=== PATIENT | female | born 1950 | race Caucasian/White ===

== ENCOUNTER 2016-06-07 18:03 | Inpatient (IN) | payer OTHER ==
[2016-06-07 19:04] LABS: VENOUS BLOOD GAS HCO3 26.4 meq/L (22-29); VENOUS PH 7.47 (7.31-7.41)
[2016-06-07 19:09] LABS: BASOPHIL 1.2 % (0-2.0); EOSINOPHIL 0.7 % (0-4.5); MCH 25.6 pg (25.7-33.7); MCHC 31.2 g/dl (32.0-36.0); MEAN CELL VOLUME 82.1 fl (80-96); MEAN PLT VOLUME 8.9 fl (7.5-11.1); NEUTROPHILS 68.9 % (42.8-82.8); PLATELET COUNT 418 K/MM3 (134-434); RDW 16.2 % (11.6-15.6); WHITE BLOOD COUNT 9.4 K/mm3 (4.0-10.0)
--- NOTE | 2016-06-07 19:23 | PDOC ---
History of Present Illness - General History Source: Family (Daugther) Exam Limitations: Clinical Condition - History of Present Illness Initial Comments: 06/07/16 19:33 The patient is a 65 year old female brought via EMS from [facility] presenting with her daughter, with a significant past medical history of Anemia , MS, Breast CA, Constipation, GERD, Neurogenic bladder, recurrent UTI, Psychiatric Problems, Seizures, and Thyroid disease, who presents to the emergency department with a fever of 105. The patient was released by [facility] today s/p nephrostomy tube. The daughter notes that the patient had a nephrostomy bag prior to the nephrostomy tube surgery. The daughter also notes that the patient has multiple bed sores. The The patient is non verbal and non ambulatory on baseline. Allergies: None Past surgical history: Nephrostomy tube Social history: No alcohol, tobacco or drug use reported PMD - Dr. Kamran Cardenas <Franco Miner - Last Filed: 06/07/16 20:38> - General History Source: Patient <Franco Zuniga - Last Filed: 06/08/16 19:22> - General Chief Complaint: SIRS, Suspected/Possible Stated Complaint: FEVER Time Seen by Provider: 06/07/16 19:23 Past History <Franco Miner - Last Filed: 06/07/16 20:38> - Past Medical History Anemia: Yes Asthma: No Cancer: Yes (breast) Cardiac Disorders: No CVA: No COPD: No CHF: No Diabetes: No GI Disorders: Yes (constipation, gerd) Disorders: Yes (NEUROGENIC BLADER, UTI) HTN: No Hypercholesterolemia: No Liver Disease: No Psychiatric Problems: Yes Seizures: Yes Thyroid Disease: Yes - Immunization History Immunization Up to Date: Yes - Psycho/Social/Smoking Cessation Hx Anxiety: No Suicidal Ideation: No Smoking Status: No Smoking History: Unknown if ever smoked Have you smoked in the past 12 months: No Number of Cigarettes Smoked Daily: 0 Hx Alcohol Use: No Drug/Substance Use Hx: No Substance Use Type: None Hx Substance Use Treatment: No <Franco Zuniga - Last Filed: 06/08/16 19:22> - Past Medical History Allergies/Adverse Reactions: Allergies Allergy/AdvReac Type Severity Reaction Status Date / Time No Known Allergies Allergy Verified 04/27/16 23:33 Home Medications: Ambulatory Orders Acetaminophen 650 mg PO Q4H PRN 03/28/16 Cholecalciferol (Vitamin D3) [Vitamin D3] 1,000 unit PO DAILY 03/28/16 Interferon Beta-1A [Avonex] 30 mcg IM WEEKLY 03/28/16 Levothyroxine [Synthroid -] 100 mcg PO DAILY 03/28/16 Multivitamin [Poly-Vitamin] 1 each PO DAILY 03/28/16 Polyethylene Glycol 3350 [Gavilax] 17 gm PO DAILY 03/28/16 Sennosides [Senna] 17.2 mg PO HS 03/28/16 Tamoxifen Citrate 20 mg PO DAILY 03/28/16 Collagenase Clostridium Hist. [Santyl] 1 applic TP DAILY 04/28/16 Dextran 70/Hypromellose/Pf [Tears Naturale Free Drops] 1 each OP DAILY 04/28/16 Ciprofloxacin HCl [Cipro] 500 mg PO BID 06/07/16 Docusate Sodium [Colace -] 100 mg PO DAILY 06/07/16 Doxycycline Hyclate [Vibratab -] 100 mg PO BID 06/07/16 Review of Systems - Review of Systems Able to Perform ROS?: No Comments:: 06/07/16 19:30 ROS Unattainable due to clinical condition. <Franco Miner - Last Filed: 06/07/16 20:38> *Physical Exam - Vital Signs Last Vital Signs Temp Pulse Resp BP Pulse Ox 103.5 F H 120 H 20 138/60 96 06/07/16 18:28 06/07/16 18:28 06/07/16 18:28 06/07/16 18:28 06/07/16 18:28 - Physical Exam Comments: 06/07/16 19:33 GENERAL: Awake, alert. Nonverbal due to clinical condition. Appears Pale HEAD: No signs of trauma, normocephalic, atraumatic EYES: PERRLA, EOMI, sclera anicteric, conjunctiva clear ENT: Auricles normal inspection, hearing grossly normal, nares patent, oropharynx clear without exudates. Dry mucosa. NECK: Normal ROM, supple, no lymphadenopathy, JVD, or masses LUNGS: No distress, clear to auscultation bilaterally HEART: +Tachycardia. Normal S1 and S2, no murmurs, rubs or gallops, peripheral pulses normal and equal bilaterally. ABDOMEN: Soft, nontender, normoactive bowel sounds. No guarding, no rebound. No masses EXTREMITIES: No edema. No clubbing or cyanosis. Contractures of all 4 extremities. NEUROLOGICAL: Cranial nerves II through XII grossly intact. No focal sensorimotor deficits SKIN: +Large sacral stage 4 bed sore, malodoress, no reinaldo discharge, no bleeding, nontender, no surrounding erythema. Warm, Dry, normal turgor. <Franco Miner - Last Filed: 06/07/16 20:38> - Vital Signs Last Vital Signs Temp Pulse Resp BP Pulse Ox 103.5 F H 120 H 20 138/60 96 06/07/16 18:28 06/07/16 18:28 06/07/16 18:28 06/07/16 18:28 06/07/16 18:28 <Franco Zuniga - Last Filed: 06/08/16 19:22> ED Treatment Course - LABORATORY CBC & Chemistry Diagram: 06/07/16 19:00 06/07/16 19:00 - ADDITIONAL ORDERS Additional order review: Laboratory Results 06/07/16 18:45 VBG pH 7.47 H POC VBG pCO2 37.2 L POC VBG pO2 70.3 H 06/07/16 19:00 RBC 3.39 L MCV 82.1 MCHC 31.2 L RDW 16.2 H MPV 8.9 Neutrophils % 68.9 D Lymphocytes % 20.9 D Monocytes % 8.3 Eosinophils % 0.7 D Basophils % 1.2 - RADIOLOGY Radiograph Interpretation: 06/07/16 20:16 Chest X-Ray Reviewed by: Dr. Chip Maher Impression: There is suggestion of subsegmental atelectasis/pneumonia in the left lung base, medially. <Franco Miner - Last Filed: 06/07/16 20:38> - LABORATORY CBC & Chemistry Diagram: 06/08/16 05:35 06/08/16 05:35 - ADDITIONAL ORDERS Additional order review: Laboratory Results 06/07/16 18:45 VBG pH 7.47 H POC VBG pCO2 37.2 L POC VBG pO2 70.3 H <Franco Zuniga - Last Filed: 06/08/16 19:22> Medical Decision Making - Medical Decision Making 06/07/16 20:39 Dr. Ho was consulted regarding the patient at 8:39pm [phone] <Franco Miner - Last Filed: 06/07/16 20:38> - Medical Decision Making 06/08/16 19:20 Dr. Zuniga: The scribe's documentation has been prepared under my direction and personally reviewed by me in its entirery. I confirm that the note above accurately reflects all work, treatment, procedures, and medical decision making performed by me. Patient with temp of 103.5 found to have pneumonia. Admitt to [facility] for IV antibiotics <Franco Zuniga - Last Filed: 06/08/16 19:22> *DC/Admit/Observation/Transfer - Attestations Scribe Attestion: 06/07/16 19:30 Documentation prepared by Franco Miner, acting as medical information officer for Franco Zuniga DO <Franco Miner - Last Filed: 06/07/16 20:38> - Discharge Dispostion Admit: Yes <Franco Zuniga - Last Filed: 06/08/16 19:22> Diagnosis at time of Disposition: Fever, Severe sepsis Pneumonia Qualifiers: Pneumonia type: due to unspecified organism Laterality: left Lung location: lower lobe of lung Qualified Code(s): J18.9 - Pneumonia, unspecified organism - Discharge Dispostion Condition at time of disposition: Stable - Referrals
[2016-06-07] MEDS ORDERED: IBUPROFEN 800 MG/8 ML IJ IVPB ONE ×2 (19:24→19:29)
[2016-06-07] MEDS ORDERED: SODIUM CHLORIDE 1,000 ML IV STA ×2 (19:24)
[2016-06-07 19:39] LABS: URINE APPEARANCE CLOUDY; URINE BILIRUBIN NEGATIVE (NEGATIVE); URINE COLOR DKYELLOW; URINE GLUCOSE (UA) NEGATIVE (NEGATIVE); URINE KETONE NEGATIVE (NEGATIVE); URINE NITRITE NEGATIVE (NEGATIVE); URINE PROTEIN NEGATIVE (NEGATIVE); URINE UROBILINOGEN NEGATIVE E.U./dl (0.2-1.0)
[2016-06-07 19:40] LABS: INR 1.09 (0.82-1.09)
[2016-06-07] MEDS ORDERED: PIPERACILLIN/TAZOB 3.375 GM 3.375 GM in DEXTROSE 5%-WATER - 50 ML IVPB ONE (19:41)
[2016-06-07] MEDS ORDERED: VANCOMYCIN 1,000 MG in DEXTROSE 5%-WATER - 250 ML IVPB ONE (19:41)
[2016-06-07 19:43] LABS: ACTIVATED PTT 31.6 SECONDS (26.9-34.4)
[2016-06-07 19:46] LABS: URINE BLOOD 1+ (NEGATIVE); URINE LEUK ESTERASE 1+ (NEGATIVE)
[2016-06-07 19:50] LABS: ALBUMIN 2.3 g/dl (3.4-5.0); ANION GAP 9 (8-16); CALCIUM 9.1 mg/dL (8.5-10.1); CO2 26 mmol/L (21-32); CREATININE 0.6 mg/dL (0.55-1.02); GLUCOSE,RANDOM 122 mg/dL (74-106); SGOT/AST 241 U/L (15-37); SGPT/ALT 113 U/L (12-78)
[2016-06-07 19:54] LABS: ALK PHOS 88 U/L (45-117); BILIRUBIN,TOTAL 0.4 mg/dL (0.2-1.0); TOT PROT 7.4 g/dl (6.4-8.2); TROPONIN I < 0.02 ng/ml (0.00-0.05)
[2016-06-07] MEDS ORDERED: PIPERACILLIN/TAZOB 3.375 GM 50 ML IVPB ONE (19:57)
[2016-06-07] MEDS ORDERED: VANCOMYCIN 1 GRAM (PRE-DOCKED) 250 ML IVPB ONE (19:57)
[2016-06-07 20:07] LABS: URINE BACTERIA FEW /hpf (NONE SEEN); URINE MUCUS FEW; URINE RBC 25 /hpf (0-3); URINE WBC 52 /hpf (3-5)
[2016-06-07] MEDS ORDERED: ACETAMINOPHEN 325 MG TABLET (FP) PO PRN (21:35)
[2016-06-07] MEDS ORDERED: ONDANSETRON 4 MG/2 ML VIAL IVPB PRN (21:35)
[2016-06-07] MEDS ORDERED: INTERFERON BETA 30 MCG IM SCH (21:45)
[2016-06-08] MEDS: SENNOSIDES 8.6MG TABLET (FP) PO SCH ×2 (00:52→21:56)
[2016-06-08] MEDS: SODIUM CHLORIDE 1,000 ML IV SCH ×2 (01:00→21:56)
[2016-06-08 03:34] VITALS: BMI 19.7
[2016-06-08] MEDS: LEVOTHYROXINE NA 100 MCG TABLET (FP) PO SCH (06:11)
[2016-06-08 06:55] LABS: BASOPHIL 0.8 % (0-2.0); EOSINOPHIL 1.1 % (0-4.5); MCHC 32.4 g/dl (32.0-36.0); MEAN CELL VOLUME 83.3 fl (80-96); MEAN PLT VOLUME 8.8 fl (7.5-11.1); NEUTROPHILS 67.8 % (42.8-82.8); PLATELET COUNT 290 K/MM3 (134-434); RDW 16.9 % (11.6-15.6); WHITE BLOOD COUNT 6.2 K/mm3 (4.0-10.0)
[2016-06-08 07:48] LABS: CALCIUM 8.1 mg/dL (8.5-10.1); MAGNESIUM 1.9 mg/dL (1.8-2.4)
[2016-06-08 07:49] LABS: CREATININE 0.3 mg/dL (0.55-1.02); PHOSPHOROUS 3.5 mg/dL (2.5-4.9)
[2016-06-08] MEDS ORDERED: PATIENT'S OWN MEDICATION (NON-FORMULARY) (Polyethylene Glycol 3350 [Gavilax] 17 GM) PO SCH (10:00)
[2016-06-08] MEDS ORDERED: PATIENT'S OWN MEDICATION (NON-FORMULARY) (Multivitamin [Poly-Vitamin] 1 EACH) PO SCH (10:00)
--- NOTE | 2016-06-08 10:09 | PN ---
Progress Note (short form) - Note Progress Note: ID consult dictated IMP/RECCD 65 year old female with MS, history of neurogenic bladder, history of right staghorn calculi admitted to [facility] 04/28 to 05/05 with fever/recurrent UTi, dislodged PCN- she was transferred to [facility] on 05/05 for evaluation of her staghorn calculi - she underwent right PCNL on 05/17 she had a stormy course there complicated by recurrent fevers, sepsis requiring pressors, constipation requiring fecal disimpaction, and was discharged on cipro and doxycycline until 06/11/15- no micro is available- received multiple courses of antibiotics while at [facility] she was discharged to the [place] yesterday and had a fever of 105- she received vanco/zosyn in the ED she is awake and alert today and afebrile PE notable for sacral ulcer (clean) and suprapubic tube fever/sepsis syndrome s/p PCNL 05/17 just discharged yesterday from [facility] continue vancomycin and zosyn f/u cultures will try to get micro data from [facility] thanks will get sandrita GARCIA to see if she has an internal stent
--- NOTE | 2016-06-08 11:59 | CONS ---
INFECTIOUS DISEASE CONSULTATION DATE OF CONSULTATION: DATE OF DICTATION: 06/08/2016 REQUESTING PHYSICIAN: Louie Ho MD This is a 65-year-old woman with a past medical history of MS. She is a [facility] and is bedbound. She has a history of a neurogenic bladder and a suprapubic tube. We know her well from prior admissions. She has had a history of right staghorn calculus in the past as well. She has had multiple admissions to [facility] for urosepsis, percutaneous nephrostomy tubes that have fallen out, and fevers. She most recently was hospitalized here in April from May 05 to June 07, again after her percutaneous nephrostomy fell out, and she was noted to have fever. She was transferred on her last admission on May 05 to [facility] for further management of her staghorn calculus. She underwent a right percutaneous lithotomy for removal of the staghorn calculus. She was discharged yesterday from [facility]. Per her discharge summary, her hospital course was complicated by constipation requiring fecal disimpaction, multiple episodes of sepsis; at least 1 of which required pressors. She has been on multiple courses of antibiotics. She was discharged on ciprofloxacin and doxycycline to be completed on the . Unfortunately, no microdata were sent. The patient was discharged yesterday. [facility] the [facility]. She had a fever of 105 and was sent to [facility] where she had a temperature of 103.5. She had cultures sent and was started on vancomycin and Zosyn. PAST MEDICAL HISTORY: Notable for multiple sclerosis, GERD, neurogenic bladder. She has a suprapubic tube. She has history of hypothyroidism. She has history of breast cancer and status post right mastectomy in the past. As well, she has a history of this PCN now which was done on May 17. ALLERGIES: She has no known drug allergies. Her discharge medications include doxycycline, Colace, ciprofloxacin, senna, multivitamin, Synthroid, Santyl, vitamin D, tamoxifen, Avonex, MiraLAX, and Tylenol. FAMILY HISTORY: Noncontributory. SOCIAL HISTORY: She is a long-standing [facility] resident. REVIEW OF SYSTEMS: Currently, she is resting comfortably. She is alert. She has no complaints. PHYSICAL EXAMINATION: Vital Signs: Her T-max is 103.5. Current temperature is 97.5. Pulse of 92. Blood pressure is 124/53. Respiratory rate is 20. HEENT: She is normocephalic. Her eyes are anicteric. Neck: Supple. She has a left EJ. Lungs: Clear to auscultation. Heart: Regular rate and rhythm. Abdomen: Soft, nontender. She has a suprapubic tube that is draining clear urine. Extremities: Without edema. Skin: She has a sacral ulcer that appears clean. LABORATORY DATA: Her white count is 6.2, hemoglobin 7.7, platelets are 290. BUN is 8 and creatinine 0.3. Lactic acid was 2.5 on admission. Repeat was 1.2. Urinalysis from her suprapubic tube had 1+ leukocyte esterase with 52 white cells. Cultures are pending. Chest x-ray has some atelectasis at the left base. In summary, this is a 65-year-old woman just discharged after a complicated admission at [facility] yesterday, who is now admitted with: 1. Fever after discharge. Would continue vancomycin and Zosyn. Follow up her cultures. We will try to get some microdata from [place]. Would get an abdominal KUB to see if she has an internal stent. That is not clear on her discharge summary. 2. History of multiple sclerosis. 3. Neurogenic bladder with suprapubic tube. 4. History of right staghorn calculus status post PCML on May 17. Ozzy [id number]
[2016-06-08] MEDS: COLLAGENASE CLOSTRIDIUM HIST. 30 GRAMS TUBE TP SCH (12:00)
--- NOTE | 2016-06-08 12:46 | HP ---
Admitting History and Physical - Primary Care Physician PCP: Kamran Cardenas - Admission Chief Complaint: I feel fine History of Present Illness: Mrs Gerardo is a very pleasant 65 year old female with history of MS and dementia who comes in with fevers. She was recently transferred from this hospital to [facility] for removal of a chronic staghorn calculus as she had repeated admissions for urosepsis and this was felt to be the cause. She had the calculus removed, however developed sepsis from an indwelling central line and ileus. She was treated with IV antibiotics and had a NGT placed. The ileus resolved and she was continued on antibiotics for seven days without fever before being transitioned to oral antibiotics and discharged back to [facility]. Unfortunately upon arriving at [facility] she was found to have a temperature of 103 and sent in for admission. Currently she says she feels fine and is without complaint, however this is inaccurate as she always says she feels fine. 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 Gastrointestinal: Yes: GERD Renal/: Yes: Neurogenic Bladder, Renal Calculi, UTI Rheumatology: Yes: Other (multiple sclerosis) Endocrine: Yes: Hypothyroidism - Past Surgical History Past Surgical History: Yes: Mastectomy Additional Past Surgical History: lithotripsy - Advance Directives Advance Directives: Yes: Health Care Proxy - Smoking History Smoking history: Unknown if ever smoked Have you smoked in the past 12 months: No Aproximately how many cigarettes per day: 0 - Alcohol/Substance Use Hx Alcohol Use: No History of Substance Use: reports: None - Social History Usual Living Arrangement: Yes: [facility] ADL: Support Services History of Recent Travel: No Home Medications - Allergies Allergies/Adverse Reactions: Allergies Allergy/AdvReac Type Severity Reaction Status Date / Time No Known Allergies Allergy Verified 04/27/16 23:33 - Home Medications Home Medications: Ambulatory Orders Acetaminophen 650 mg PO Q4H PRN 03/28/16 Cholecalciferol (Vitamin D3) [Vitamin D3] 1,000 unit PO DAILY 03/28/16 Interferon Beta-1A [Avonex] 30 mcg IM WEEKLY 03/28/16 Levothyroxine [Synthroid -] 100 mcg PO DAILY 03/28/16 Multivitamin [Poly-Vitamin] 1 each PO DAILY 03/28/16 Polyethylene Glycol 3350 [Gavilax] 17 gm PO DAILY 03/28/16 Sennosides [Senna] 17.2 mg PO HS 03/28/16 Tamoxifen Citrate 20 mg PO DAILY 03/28/16 Collagenase Clostridium Hist. [Santyl] 1 applic TP DAILY 04/28/16 Dextran 70/Hypromellose/Pf [Tears Naturale Free Drops] 1 each OP DAILY 04/28/16 Ciprofloxacin HCl [Cipro] 500 mg PO BID 06/07/16 Docusate Sodium [Colace -] 100 mg PO DAILY 06/07/16 Doxycycline Hyclate [Vibratab -] 100 mg PO BID 06/07/16 Family Disease History - Family Disease History Family History: Unable to Obtain Review of Systems Findings/Remarks: Full review of systems obtained and negative, however inaccurate secondary to dementia Physical Examination Vital Signs: Vital Signs Temperature 97.5 F L 06/08/16 05:57 Pulse Rate 92 H 06/08/16 05:57 Respiratory Rate 20 06/08/16 05:57 Blood Pressure 124/53 06/08/16 05:57 O2 Sat by Pulse Oximetry (%) 97 06/07/16 23:00 Constitutional: Yes: No Distress, Calm, Thin Eyes: Yes: Conjunctiva Clear, PERRL HENT: Yes: Atraumatic, Normocephalic Cardiovascular: Yes: Regular Rate and Rhythm. No: Gallop, Murmur, Rub Respiratory: Yes: Regular, CTA Bilaterally. No: Rales, Rhonchi, Wheezes Gastrointestinal: Yes: Normal Bowel Sounds, Soft. No: Distention, Tenderness Extremities: Yes: WNL Edema: No Integumentary: Yes: Pressure Ulcer Labs: CBC, BMP 06/08/16 05:35 06/08/16 05:35 Imaging - Results Chest X-ray: Report Reviewed, Image Reviewed Problem List - Problems (1) Fever Assessment/Plan: -unclear source currently -chest x-ray read as possible infiltrate, however film on my view was over exposed -appreciate ID assistance -will place on vancomycin and zosyn -follow up cultures -attempt to obtain microbiology from [facility] Code(s): R50.9 - FEVER, UNSPECIFIED (2) Breast CA Assessment/Plan: -continue tamoxifen Code(s): C50.919 - MALIGNANT NEOPLASM OF UNSP SITE OF UNSPECIFIED FEMALE BREAST (3) Anemia Assessment/Plan: -decreased today -will check anemia labs -also check for bleeding, however had colonoscopy last admission with bad prep -transfuse as needed Code(s): D64.9 - ANEMIA, UNSPECIFIED (4) Hypernatremia Assessment/Plan: -monitor -encourage po intake Code(s): E87.0 - HYPEROSMOLALITY AND HYPERNATREMIA (5) Hypothyroid Assessment/Plan: -continue levothyroxine Code(s): E03.9 - HYPOTHYROIDISM, UNSPECIFIED (6) Multiple sclerosis Assessment/Plan: -continue home regimen Code(s): G35 - MULTIPLE SCLEROSIS (7) Neurogenic bladder Code(s): N31.9 - NEUROMUSCULAR DYSFUNCTION OF BLADDER, UNSPECIFIED
[2016-06-08] MEDS: TAMOXIFEN CITRATE 10 MG TABLET PO SCH (12:55)
[2016-06-08] MEDS ORDERED: PT OWN MED DRAWER 7, Y5N ONE ×2 (13:03→13:20)
[2016-06-08] MEDS: DOCUSATE SODIUM 100 MG CAPSULE (FP) PO SCH (13:24)
[2016-06-08] MEDS: MULTIVITAMINS (DAILY MVI) TABLET (FP) PO SCH (13:25)
[2016-06-08] MEDS: CHOLECALCIFEROL (VITAMIN D3) 1,000 UNIT TABLET (FP) PO SCH (13:26)
[2016-06-08] MEDS: ENOXAPARIN NA (PORCINE) 40 MG/0.4 ML DISP.SYRIN SQ SCH (13:32)
--- NOTE | 2016-06-08 18:08 | EKG ---
Test Reason : Blood Pressure : / mmHG Vent. Rate : 117 BPM Atrial Rate : 117 BPM P-R Int : 142 ms QRS Dur : 074 ms QT Int : 348 ms P-R-T Axes : 050 -17 022 degrees QTc Int : 485 ms SINUS TACHYCARDIA INFERIOR INFARCT (CITED ON OR BEFORE 19-SEP-2015) ABNORMAL ECG WHEN COMPARED WITH ECG OF 28-APR-2016 00:57, NO SIGNIFICANT CHANGE WAS FOUND Confirmed by HANS RED MD ([id number]) on 06/08/2016 6:08:14 PM Referred By: Confirmed By:HANS RED MD
[2016-06-08] MEDS: POLYETHYLENE GLYCOL 3350 119 GM BTL PO SCH (18:14)
[2016-06-08] MEDS: PIPERACILLIN/TAZOB 4.5 GM/100 ML PRE-DOCKED IVPB SCH (18:27)
[2016-06-08] MEDS: VANCOMYCIN 1 GRAM (PRE-DOCKED) 1,000 MG/250 ML BAG IVPB SCH (20:36)
[2016-06-09] MEDS: PIPERACILLIN/TAZOB 4.5 GM/100 ML PRE-DOCKED IVPB SCH ×3 (02:23→19:02)
[2016-06-09] MEDS: VANCOMYCIN 1 GRAM (PRE-DOCKED) 1,000 MG/250 ML BAG IVPB SCH (05:37)
[2016-06-09] MEDS: LEVOTHYROXINE NA 100 MCG TABLET (FP) PO SCH (05:59)
[2016-06-09 07:48] LABS: BASOPHIL 1.3 % (0-2.0); EOSINOPHIL 2.8 % (0-4.5); MCH 26.5 pg (25.7-33.7); MEAN CELL VOLUME 82.9 fl (80-96); NEUTROPHILS 43.8 % (42.8-82.8); PLATELET COUNT 320 K/MM3 (134-434); RDW 16.9 % (11.6-15.6); WHITE BLOOD COUNT 5.2 K/mm3 (4.0-10.0)
[2016-06-09 08:01] LABS: CALCIUM 8.5 mg/dL (8.5-10.1); CREATININE 0.4 mg/dL (0.55-1.02); PHOSPHOROUS 3.3 mg/dL (2.5-4.9)
--- NOTE | 2016-06-09 11:53 | PN ---
Progress Note, Physician Chief Complaint: Patient says she is feeling fine. Denies cp, sob, n/v. - Current Medication List Current Medications: Active Medications Acetaminophen (Tylenol -) 650 mg PO Q4H PRN PRN Reason: FEVER OR PAIN Last Admin: 06/08/16 22:00 Dose: 650 mg Cholecalciferol (Vitamin D3 -) 1,000 unit PO DAILY [facility] Last Admin: 06/08/16 13:26 Dose: 1,000 unit Collagenase (Santyl -) 1 applic TP DAILY [facility] Last Admin: 06/08/16 12:00 Dose: 1 applic Docusate Sodium (Colace -) 100 mg PO DAILY [facility] Last Admin: 06/08/16 13:24 Dose: 100 mg Enoxaparin Sodium (Lovenox -) 40 mg SQ DAILY [facility] Last Admin: 06/08/16 13:32 Dose: Not Given Sodium Chloride (Normal Saline -) 1,000 mls @ 75 mls/hr IV ASDIR [facility] Last Admin: 06/08/16 21:56 Dose: 75 mls/hr Levothyroxine Sodium (Synthroid -) 100 mcg PO ACBK [facility] Last Admin: 06/09/16 05:59 Dose: 100 mcg Multivitamins/Minerals/Vitamin C (Tab-A-Vit -) 1 tab PO DAILY [facility] Last Admin: 06/08/16 13:25 Dose: 1 tab Non-Formulary Medication (Dextran 70/Hypromellose/Pf [Tears Naturale Free Drops] ) 1 each OP DAILY [facility] Non-Formulary Medication (Interferon Beta-1a [Avonex]) 30 mcg IM WEEKLY [facility] Ondansetron HCl (Zofran Injection) 4 mg IVPB Q6H PRN PRN Reason: NAUSEA Piperacillin Sod/Tazobactam Sod (Zosyn 4.5gm Ivpb (Pre-Docked)) 4.5 gm IVPB Q8H -IV [facility] Last Admin: 06/09/16 02:23 Dose: 4.5 gm Polyethylene Glycol (Miralax (For Daily Use) -) 17 gm PO DAILY [facility] Last Admin: 06/08/16 18:14 Dose: Not Given Senna (Senna -) 2 tab PO HS [facility] Last Admin: 06/08/16 21:56 Dose: 2 tab Tamoxifen Citrate (Tamoxifen Citrate) 20 mg PO DAILY [facility] Last Admin: 06/08/16 12:55 Dose: 20 mg Vancomycin HCl (Vancomycin (Pre-Docked)) 1,000 mg IVPB BID@0600,1800 [facility] Last Admin: 06/09/16 05:37 Dose: 1,000 mg - Objective Vital Signs: Vital Signs Temperature 98.3 F 06/09/16 06:00 Pulse Rate 99 H 06/09/16 06:00 Respiratory Rate 20 06/09/16 06:00 Blood Pressure 137/88 06/09/16 06:00 O2 Sat by Pulse Oximetry (%) 97 06/08/16 20:39 Constitutional: Yes: No Distress, Calm Cardiovascular: Yes: Regular Rate and Rhythm. No: Gallop, Murmur, Rub Respiratory: Yes: Regular, CTA Bilaterally. No: Rales, Rhonchi, Wheezes Gastrointestinal: Yes: Normal Bowel Sounds, Soft. No: Distention, Tenderness Extremities: Yes: WNL Edema: No Labs: CBC, BMP 06/09/16 06:00 06/09/16 06:00 INR, PTT INR 1.09 (0.82-1.09) 06/07/16 19:00 Problem List - Problems (1) Fever Code(s): R50.9 - FEVER, UNSPECIFIED (2) Breast CA Code(s): C50.919 - MALIGNANT NEOPLASM OF UNSP SITE OF UNSPECIFIED FEMALE BREAST (3) Anemia Code(s): D64.9 - ANEMIA, UNSPECIFIED (4) Hypernatremia Code(s): E87.0 - HYPEROSMOLALITY AND HYPERNATREMIA (5) Hypothyroid Code(s): E03.9 - HYPOTHYROIDISM, UNSPECIFIED (6) Multiple sclerosis Code(s): G35 - MULTIPLE SCLEROSIS (7) Neurogenic bladder Code(s): N31.9 - NEUROMUSCULAR DYSFUNCTION OF BLADDER, UNSPECIFIED Assessment/Plan (1) Fever Assessment/Plan: -currently resolved -on vancomycin and zosyn -wound is growing gram negative rods -ID following -consult wound care for decubitus Code(s): R50.9 - FEVER, UNSPECIFIED (2) Breast CA Assessment/Plan: -continue tamoxifen Code(s): C50.919 - MALIGNANT NEOPLASM OF UNSP SITE OF UNSPECIFIED FEMALE BREAST (3) Anemia Assessment/Plan: -stable -monitor Code(s): D64.9 - ANEMIA, UNSPECIFIED (4) Hypernatremia Assessment/Plan: -resolved Code(s): E87.0 - HYPEROSMOLALITY AND HYPERNATREMIA (5) Hypothyroid Assessment/Plan: -continue levothyroxine Code(s): E03.9 - HYPOTHYROIDISM, UNSPECIFIED (6) Multiple sclerosis Assessment/Plan: -continue home regimen Code(s): G35 - MULTIPLE SCLEROSIS (7) Neurogenic bladder Code(s): N31.9 - NEUROMUSCULAR DYSFUNCTION OF BLADDER, UNSPECIFIED
[2016-06-09] MEDS: MULTIVITAMINS (DAILY MVI) TABLET (FP) PO SCH (13:25)
[2016-06-09] MEDS: COLLAGENASE CLOSTRIDIUM HIST. 30 GRAMS TUBE TP SCH (13:25)
[2016-06-09] MEDS: TAMOXIFEN CITRATE 10 MG TABLET PO SCH (13:25)
[2016-06-09] MEDS: CHOLECALCIFEROL (VITAMIN D3) 1,000 UNIT TABLET (FP) PO SCH (13:25)
[2016-06-09] MEDS: DOCUSATE SODIUM 100 MG CAPSULE (FP) PO SCH (13:26)
[2016-06-09] MEDS: ENOXAPARIN NA (PORCINE) 40 MG/0.4 ML DISP.SYRIN SQ SCH (13:48)
[2016-06-09] MEDS: POLYETHYLENE GLYCOL 3350 119 GM BTL PO SCH (13:50)
--- NOTE | 2016-06-09 14:33 | PN ---
Progress Note (short form) - Note Progress Note: alert has a cough Vital Signs Period Temp Pulse Resp BP Sys/Machuca Pulse Ox Last 24 Hr 97.5 F-99 F 84-99 20-20 126-142/60-88 97 cor-rrr llungs scattered rhonchi abd soft,nt ext no edema CBC, BMP 06/09/16 06:00 06/09/16 06:00 Microbiology 06/07/16 20:02 Wound-Other Gram Stain - Final 06/07/16 20:02 Wound-Other Wound Culture - Preliminary Non Lactose Fermenting Gnb 06/07/16 19:00 Blood - Peripheral Venous Blood Culture - Preliminary NO GROWTH OBTAINED AFTER 24 HOURS, INCUBATION TO CONTINUE FOR 4 DAYS. 06/07/16 19:00 Blood - Peripheral Venous Blood Culture - Preliminary NO GROWTH OBTAINED AFTER 24 HOURS, INCUBATION TO CONTINUE FOR 4 DAYS. a/p fever- ?etiology reports fevers resolved after stent was removed will ask [facility] for micro records- to consent repeat cxray he reports cough is new influenza screen continue vanco/zosyn for now f/u cultures in am Current Medications Acetaminophen (Tylenol -) 650 mg PO Q4H PRN PRN Reason: FEVER OR PAIN Last Admin: 06/08/16 22:00 Dose: 650 mg Cholecalciferol (Vitamin D3 -) 1,000 unit PO DAILY REPLACED BY [facility] Last Admin: 06/09/16 13:25 Dose: 1,000 unit Collagenase (Santyl -) 1 applic TP DAILY [facility] Last Admin: 06/09/16 13:25 Dose: 1 applic Docusate Sodium (Colace -) 100 mg PO DAILY [facility] Last Admin: 06/09/16 13:26 Dose: 100 mg Enoxaparin Sodium (Lovenox -) 40 mg SQ DAILY [facility] Last Admin: 06/09/16 13:48 Dose: Not Given Sodium Chloride (Normal Saline -) 1,000 mls @ 75 mls/hr IV ASDIR REPLACED BY [facility] Last Admin: 06/08/16 21:56 Dose: 75 mls/hr Levothyroxine Sodium (Synthroid -) 100 mcg PO ACBK REPLACED BY [facility] Last Admin: 06/09/16 05:59 Dose: 100 mcg Multivitamins/Minerals/Vitamin C (Tab-A-Vit -) 1 tab PO DAILY [facility] Last Admin: 06/09/16 13:25 Dose: 1 tab Non-Formulary Medication (Dextran 70/Hypromellose/Pf [Tears Naturale Free Drops] ) 1 each OP DAILY [facility] Last Admin: 06/09/16 13:50 Dose: Not Given Non-Formulary Medication (Interferon Beta-1a [Avonex]) 30 mcg IM WEEKLY REPLACED BY [facility] Ondansetron HCl (Zofran Injection) 4 mg IVPB Q6H PRN PRN Reason: NAUSEA Piperacillin Sod/Tazobactam Sod (Zosyn 4.5gm Ivpb (Pre-Docked)) 4.5 gm IVPB Q8H -IV REPLACED BY [facility] Last Admin: 06/09/16 13:24 Dose: 4.5 gm Polyethylene Glycol (Miralax (For Daily Use) -) 17 gm PO DAILY [facility] Last Admin: 06/09/16 13:50 Dose: Not Given Senna (Senna -) 2 tab PO HS REPLACED BY [facility] Last Admin: 06/08/16 21:56 Dose: 2 tab Tamoxifen Citrate (Tamoxifen Citrate) 20 mg PO DAILY [facility]PL[facility] Last Admin: 06/09/16 13:25 Dose: 20 mg Vancomycin HCl (Vancomycin (Pre-Docked)) 1,000 mg IVPB BID@0600,1800 REPLACED BY [facility] Last Admin: 06/09/16 05:37 Dose: 1,000 mg
--- NOTE | 2016-06-09 18:00 | PN ---
Progress Note (short form) - Note Progress Note: Pt seen and examined with Dr. John. Asked to evaluate the patient for a sacral ulcer. She is a 65 yo female who presents to [facility] for fever 103.5. Recently she was transferred to [facility] and treated for urosepsis and removal of staghorn calculi. After being transferred to [facility] she was found to be febrile and sent to the ER for evaluation. Vital Signs Period Temp Pulse Resp BP Sys/Machuca Pulse Ox Last 24 Hr 98.2 F-99 F 84-99 20-20 126-137/60-88 97-97 PE: GEN: appears comfortable Sacrum: 4x3 cm left sided ulcer with minimal slough/necrotic tissue at base. No surrounding erythema. No drainage noted. Heels: b/l skin remains intact and with heel protectors/alleyvn on and elevated on pillows. CBC, BMP 06/09/16 06:00 06/09/16 06:00 Microbiology 06/07/16 20:02 Wound-Other Gram Stain - Final 06/07/16 20:02 Wound-Other Wound Culture - Preliminary Non Lactose Fermenting Gnb 06/07/16 19:00 Blood - Peripheral Venous Blood Culture - Preliminary NO GROWTH OBTAINED AFTER 24 HOURS, INCUBATION TO CONTINUE FOR 4 DAYS. 06/07/16 19:00 Blood - Peripheral Venous Blood Culture - Preliminary NO GROWTH OBTAINED AFTER 24 HOURS, INCUBATION TO CONTINUE FOR 4 DAYS. Laboratory Tests 06/07/16 19:14 Urine Color Dkyellow Urine Appearance Cloudy Urine pH 8.0 Ur Specific [place] 1.015 Urine Protein Negative Urine Glucose (UA) Negative Urine Ketones Negative Urine Blood 1+ H Urine Nitrite Negative Urine Bilirubin Negative Urine Urobilinogen Negative Ur Leukocyte Esterase 1+ H D Urine RBC 25 Urine WBC 52 Problem List - Problems (1) Decubitus ulcer Assessment/Plan: Pt is bedbound and had recent illness of urospesis. Now asked to evaluate ulcers for possible source of infection and local wound care recommendation. Would continue with protective/preventive measures. b/l heel ulers with alleyvn and to prominece on back. Recommend to continue santyl to left sacral wound and added wet dressing and alleyvn. No surgical debridement is needed. Code(s): L89.90 - PRESSURE ULCER OF UNSPECIFIED SITE, UNSPECIFIED STAGE Qualifiers: Pressure ulcer stage: stage III Qualified Code(s): L89.93 - Pressure ulcer of unspecified site, stage 3
[2016-06-09] MEDS: SODIUM CHLORIDE 1,000 ML IV SCH (22:32)
[2016-06-09] MEDS: SENNOSIDES 8.6MG TABLET (FP) PO SCH (22:32)
[2016-06-10] MEDS ORDERED: PT OWN MED DRAWER 7, Y5N ONE (01:11)
[2016-06-10] MEDS: PIPERACILLIN/TAZOB 4.5 GM/100 ML PRE-DOCKED IVPB SCH ×2 (01:26→12:37)
[2016-06-10] MEDS: LEVOTHYROXINE NA 100 MCG TABLET (FP) PO SCH (06:23)
[2016-06-10 07:28] LABS: EOSINOPHIL 2.1 % (0-4.5); MCH 26.7 pg (25.7-33.7); MCHC 32.2 g/dl (32.0-36.0); MEAN CELL VOLUME 82.9 fl (80-96); MEAN PLT VOLUME 8.6 fl (7.5-11.1); NEUTROPHILS 51.8 % (42.8-82.8); PLATELET COUNT 339 K/MM3 (134-434); RDW 16.5 % (11.6-15.6); WHITE BLOOD COUNT 5.7 K/mm3 (4.0-10.0)
[2016-06-10 08:14] LABS: CALCIUM 8.8 mg/dL (8.5-10.1); CREATININE 0.4 mg/dL (0.55-1.02); MAGNESIUM 2.1 mg/dL (1.8-2.4); PHOSPHOROUS 3.6 mg/dL (2.5-4.9)
[2016-06-10 09:05] LABS: FERRITIN 112.606 ng/ml (6.9-282.5)
[2016-06-10] MEDS: COLLAGENASE CLOSTRIDIUM HIST. 30 GRAMS TUBE TP SCH (10:00)
--- NOTE | 2016-06-10 11:47 | PN ---
Progress Note, Physician Chief Complaint: Patient says she is feeling fine. Denies cp, sob, n/v. - Current Medication List Current Medications: Active Medications Acetaminophen (Tylenol -) 650 mg PO Q4H PRN PRN Reason: FEVER OR PAIN Last Admin: 06/08/16 22:00 Dose: 650 mg Cholecalciferol (Vitamin D3 -) 1,000 unit PO DAILY [facility] Last Admin: 06/09/16 13:25 Dose: 1,000 unit Collagenase (Santyl -) 1 applic TP DAILY [facility] Last Admin: 06/09/16 13:25 Dose: 1 applic Docusate Sodium (Colace -) 100 mg PO DAILY [facility] Last Admin: 06/09/16 13:26 Dose: 100 mg Enoxaparin Sodium (Lovenox -) 40 mg SQ DAILY [facility] Last Admin: 06/09/16 13:48 Dose: Not Given Sodium Chloride (Normal Saline -) 1,000 mls @ 75 mls/hr IV ASDIR [facility] Last Admin: 06/09/16 22:32 Dose: 75 mls/hr Lactobacillus Acidophilus (Bacid -) 1 tab PO DAILY [facility] Levothyroxine Sodium (Synthroid -) 100 mcg PO ACBK [facility] Last Admin: 06/10/16 06:23 Dose: 100 mcg Multivitamins/Minerals/Vitamin C (Tab-A-Vit -) 1 tab PO DAILY [facility] Last Admin: 06/09/16 13:25 Dose: 1 tab Non-Formulary Medication (Dextran 70/Hypromellose/Pf [Tears Naturale Free Drops] ) 1 each OP DAILY [facility] Last Admin: 06/09/16 13:50 Dose: Not Given Non-Formulary Medication (Interferon Beta-1a [Avonex]) 30 mcg IM WEEKLY [facility] Ondansetron HCl (Zofran Injection) 4 mg IVPB Q6H PRN PRN Reason: NAUSEA Piperacillin Sod/Tazobactam Sod (Zosyn 4.5gm Ivpb (Pre-Docked)) 4.5 gm IVPB Q8H -IV [facility] Last Admin: 06/10/16 01:26 Dose: 4.5 gm Polyethylene Glycol (Miralax (For Daily Use) -) 17 gm PO DAILY [facility] Last Admin: 06/09/16 13:50 Dose: Not Given Senna (Senna -) 2 tab PO HS [facility] Last Admin: 06/09/16 22:32 Dose: 2 tab Tamoxifen Citrate (Tamoxifen Citrate) 20 mg PO DAILY [facility] Last Admin: 06/09/16 13:25 Dose: 20 mg Vancomycin HCl (Vancomycin (Pre-Docked)) 1,000 mg IVPB BID@0600,1800 [facility] Last Admin: 06/09/16 05:37 Dose: 1,000 mg - Objective Vital Signs: Vital Signs Temperature 98.2 F 06/09/16 19:59 Pulse Rate 98 H 06/09/16 19:59 Respiratory Rate 20 06/09/16 19:59 Blood Pressure 142/77 06/09/16 19:59 O2 Sat by Pulse Oximetry (%) 98 06/09/16 21:00 Constitutional: Yes: No Distress, Calm, Thin Cardiovascular: Yes: Regular Rate and Rhythm. No: Gallop, Murmur, Rub Respiratory: Yes: Regular, CTA Bilaterally. No: Rales, Rhonchi, Wheezes Gastrointestinal: Yes: Normal Bowel Sounds, Soft, Distention (slight). No: Tenderness Extremities: Yes: WNL Edema: No Labs: CBC, BMP 06/10/16 06:00 06/10/16 06:00 INR, PTT INR 1.09 (0.82-1.09) 06/07/16 19:00 Problem List - Problems (1) Fever Code(s): R50.9 - FEVER, UNSPECIFIED (2) Breast CA Code(s): C50.919 - MALIGNANT NEOPLASM OF UNSP SITE OF UNSPECIFIED FEMALE BREAST (3) Anemia Code(s): D64.9 - ANEMIA, UNSPECIFIED (4) Hypernatremia Code(s): E87.0 - HYPEROSMOLALITY AND HYPERNATREMIA (5) Hypothyroid Code(s): E03.9 - HYPOTHYROIDISM, UNSPECIFIED (6) Multiple sclerosis Code(s): G35 - MULTIPLE SCLEROSIS (7) Neurogenic bladder Code(s): N31.9 - NEUROMUSCULAR DYSFUNCTION OF BLADDER, UNSPECIFIED Assessment/Plan (1) Fever Assessment/Plan: -wound cultures growing proteus and another pending organism -? if from urine, urine culture in February of this year grew proteus with similar resistance pattern -continue vancomycin and zosyn currently, await final organism and evaluation from ID -no fevers since admission Code(s): R50.9 - FEVER, UNSPECIFIED (2) Breast CA Assessment/Plan: -continue tamoxifen Code(s): C50.919 - MALIGNANT NEOPLASM OF UNSP SITE OF UNSPECIFIED FEMALE BREAST (3) Anemia Assessment/Plan: -stable -monitor -awaiting anemia labs results Code(s): D64.9 - ANEMIA, UNSPECIFIED (4) Hypernatremia Assessment/Plan: -resolved Code(s): E87.0 - HYPEROSMOLALITY AND HYPERNATREMIA (5) Hypothyroid Assessment/Plan: -continue levothyroxine Code(s): E03.9 - HYPOTHYROIDISM, UNSPECIFIED (6) Multiple sclerosis Assessment/Plan: -continue home regimen Code(s): G35 - MULTIPLE SCLEROSIS (7) Neurogenic bladder Code(s): N31.9 - NEUROMUSCULAR DYSFUNCTION OF BLADDER, UNSPECIFIED
[2016-06-10] MEDS: CHOLECALCIFEROL (VITAMIN D3) 1,000 UNIT TABLET (FP) PO SCH (12:37)
[2016-06-10] MEDS: TAMOXIFEN CITRATE 10 MG TABLET PO SCH (12:37)
[2016-06-10] MEDS: LACTOBACILLUS ACIDOPHILUS 1 EACH TAB (FP) PO SCH (12:37)
[2016-06-10] MEDS: MULTIVITAMINS (DAILY MVI) TABLET (FP) PO SCH (12:37)
--- NOTE | 2016-06-10 16:02 | PN ---
Progress Note (short form) - Note Progress Note: alert NAD Vital Signs Period Temp Pulse Resp BP Sys/Machuca Pulse Ox Last 24 Hr 98.2 F-98.9 F 97-98 20-20 117-142/77-78 98 cor-rrr llungs clear abd soft,nt ext no edema CBC, BMP 06/10/16 06:00 06/10/16 06:00 Microbiology 06/07/16 20:02 Wound-Other Gram Stain - Final 06/07/16 20:02 Wound-Other Wound Culture - Preliminary Proteus Mirabilis Pending Organism 06/07/16 19:00 Blood - Peripheral Venous Blood Culture - Preliminary NO GROWTH OBTAINED AFTER 48 HOURS, INCUBATION TO CONTINUE FOR 3 DAYS. 06/07/16 19:00 Blood - Peripheral Venous Blood Culture - Preliminary NO GROWTH OBTAINED AFTER 48 HOURS, INCUBATION TO CONTINUE FOR 3 DAYS. a/p fever- ?etiology reports fevers resolved after stent was removed will ask [facility] for micro records- to consent local care to sacral wound per surgery repeat cxray clear d/c antibiotics no objection to d/c back to NH
[2016-06-10] MEDS: ENOXAPARIN NA (PORCINE) 40 MG/0.4 ML DISP.SYRIN SQ SCH (16:21)
[2016-06-10] MEDS: DOCUSATE SODIUM 100 MG CAPSULE (FP) PO SCH (16:21)
[2016-06-10] MEDS: POLYETHYLENE GLYCOL 3350 119 GM BTL PO SCH (16:22)
[2016-06-10] MEDS: SENNOSIDES 8.6MG TABLET (FP) PO SCH (21:12)
[2016-06-10] MEDS: SODIUM CHLORIDE 1,000 ML IV SCH (21:13)
[2016-06-11 06:09] LABS: TRANSFERRIN 166 mg/dL (200-370)
[2016-06-11] MEDS: LEVOTHYROXINE NA 100 MCG TABLET (FP) PO SCH (06:23)
[2016-06-11 07:40] LABS: BASOPHIL 0.9 % (0-2.0); EOSINOPHIL 1.5 % (0-4.5); MCH 26.8 pg (25.7-33.7); MCHC 32.5 g/dl (32.0-36.0); MEAN CELL VOLUME 82.5 fl (80-96); MEAN PLT VOLUME 8.7 fl (7.5-11.1); NEUTROPHILS 48.4 % (42.8-82.8); PLATELET COUNT 332 K/MM3 (134-434); RDW 16.8 % (11.6-15.6); WHITE BLOOD COUNT 6.6 K/mm3 (4.0-10.0)
[2016-06-11 07:49] LABS: CALCIUM 8.1 mg/dL (8.5-10.1); CREATININE 0.2 mg/dL (0.55-1.02); MAGNESIUM 2.1 mg/dL (1.8-2.4); PHOSPHOROUS 2.7 mg/dL (2.5-4.9)
[2016-06-11 07:59] VITALS: BP 140/67
[2016-06-11 08:07] LABS: SERUM IRON 21 ug/dL (27-139); TOTAL IRON BINDING CAPACITY 201 ug/dL (250-450); UIBC 180 ug/dL (118-369)
[2016-06-11] MEDS ORDERED: PT OWN MED DRAWER 7, Y5N ONE (09:12)
[2016-06-11] MEDS: CHOLECALCIFEROL (VITAMIN D3) 1,000 UNIT TABLET (FP) PO SCH (10:37)
[2016-06-11] MEDS: DOCUSATE SODIUM 100 MG CAPSULE (FP) PO SCH (10:37)
[2016-06-11] MEDS: MULTIVITAMINS (DAILY MVI) TABLET (FP) PO SCH (10:37)
[2016-06-11] MEDS: POLYETHYLENE GLYCOL 3350 119 GM BTL PO SCH (10:38)
[2016-06-11] MEDS: TAMOXIFEN CITRATE 10 MG TABLET PO SCH (10:38)
[2016-06-11] MEDS: LACTOBACILLUS ACIDOPHILUS 1 EACH TAB (FP) PO SCH (10:38)
[2016-06-11] MEDS: ENOXAPARIN NA (PORCINE) 40 MG/0.4 ML DISP.SYRIN SQ SCH (10:44)
[2016-06-11] MEDS: COLLAGENASE CLOSTRIDIUM HIST. 30 GRAMS TUBE TP SCH (10:44)
--- NOTE | 2016-06-11 12:31 | DS ---
Physical Examination Vital Signs: Vital Signs Temperature 97.4 F L 06/11/16 06:00 Pulse Rate 85 06/11/16 06:00 Respiratory Rate 16 06/11/16 06:00 Blood Pressure 140/67 06/11/16 06:00 O2 Sat by Pulse Oximetry (%) 98 06/11/16 09:00 Constitutional: Yes: Well Nourished, No Distress, Calm Cardiovascular: Yes: Regular Rate and Rhythm. No: Gallop, Murmur, Rub Respiratory: Yes: Regular, CTA Bilaterally. No: Rales, Rhonchi, Wheezes Gastrointestinal: Yes: Normal Bowel Sounds, Soft. No: Distention, Tenderness Extremities: Yes: WNL Edema: Yes Edema: LLE: Trace, RLE: Trace Labs: CBC, BMP 06/11/16 06:15 06/11/16 06:15 Discharge Summary Reason For Visit: FEVER/SEVERE SEPSIS/ PNEUMONIA Current Active Problems Breast CA (Acute) Decubitus ulcer (Acute) Fever (Acute) GERD (gastroesophageal reflux disease) (Acute) Pneumonia (Acute) Severe sepsis (Acute) Sinus tachycardia (Acute) Hospital Course: (1) Fever Code(s): R50.9 - FEVER, UNSPECIFIED (2) Breast CA Code(s): C50.919 - MALIGNANT NEOPLASM OF UNSP SITE OF UNSPECIFIED FEMALE BREAST (3) Anemia Code(s): D64.9 - ANEMIA, UNSPECIFIED (4) Hypernatremia Code(s): E87.0 - HYPEROSMOLALITY AND HYPERNATREMIA (5) Hypothyroid Code(s): E03.9 - HYPOTHYROIDISM, UNSPECIFIED (6) Multiple sclerosis Code(s): G35 - MULTIPLE SCLEROSIS (7) Neurogenic bladder Code(s): N31.9 - NEUROMUSCULAR DYSFUNCTION OF BLADDER, UNSPECIFIED Mrs Gerardo is a very pleasant 65 year old female who comes in with fevers. She was recently discharged from [facility] and immediately presented with fevers. She was admitted and started on empiric antibiotics. She was seen by ID. Cultures were sent and they were negative. She remains afebrile here. Her antibiotics were stopped and she was observed for 24 hours. She remains afebrile , she is safe for discharge home. 35 minutes spent in preparation of this discharge Condition: Stable - Instructions Diet, Activity, Other Instructions: resume previous diet and activity Referrals: Kamran Cardenas MD [Staff Physician] - Ailyn Montenegro MD [Staff Physician] - Disposition: [facility] FACILITY - Home Medications Comprehensive Discharge Medication List: Ambulatory Orders Acetaminophen 650 mg PO Q4H PRN 03/28/16 Cholecalciferol (Vitamin D3) [Vitamin D3] 1,000 unit PO DAILY 03/28/16 Interferon Beta-1A [Avonex] 30 mcg IM WEEKLY 03/28/16 Levothyroxine [Synthroid -] 100 mcg PO DAILY 03/28/16 Multivitamin [Poly-Vitamin] 1 each PO DAILY 03/28/16 Polyethylene Glycol 3350 [Gavilax] 17 gm PO DAILY 03/28/16 Sennosides [Senna] 17.2 mg PO HS 03/28/16 Tamoxifen Citrate 20 mg PO DAILY 03/28/16 Collagenase Clostridium Hist. [Santyl] 1 applic TP DAILY 04/28/16 Dextran 70/Hypromellose/Pf [Tears Naturale Free Drops] 1 each OP DAILY 04/28/16 Docusate Sodium [Colace -] 100 mg PO DAILY 06/07/16 Lactobacillus Acidophilus [Bacid -] 1 tab PO DAILY tab 06/11/16
[2016-06-11 15:49] VITALS: PULSE 93; TEMP 98.4
== END 2016-06-11 17:35 | DRG 720 ==
LOC: JER 18:03 → JERBED 21:35 → J7W 22:00 → J5S 06-11 10:59 → UNDODISIN 06-11 17:33
PROVIDERS: ADMIT Internal Medicine; ATTEND Internal Medicine
DX: A41.89 Other specified sepsis (principal); D64.9 Anemia, unspecified; G35 Multiple sclerosis; E87.0 Hyperosmolality and hypernatremia; K21.9 Gastro-esophageal reflux disease without esophagitis; N31.9 Neuromuscular dysfunction of bladder, unspecified; K59.09 Other constipation; R65.20 Severe sepsis without septic shock; F03.90 Unspecified dementia, unspecified severity, without behavioral disturbance, psychotic disturbance, mood disturbance, and anxiety; E03.9 Hypothyroidism, unspecified; L89.214 Pressure ulcer of right hip, stage 4; L89.323 Pressure ulcer of left buttock, stage 3; Z87.442 Personal history of urinary calculi; Z85.3 Personal history of malignant neoplasm of breast; Z74.01 Bed confinement status
CPT/HCPCS: 36415; 71010-TC; 74000-TC; 80048; 80053; 81003; 81015; 82550; 82607; 82728; 82746; 82803; 83540; 83550; 83605; 83735; 84100; 84466; 84484; 85025; 85610; 85730; 86850; 86900; 86901; 87040; 87070; 87186; 87205; 93005; 93010; 99283-25

== ENCOUNTER 2017-06-09 13:10 | Inpatient (IN) | payer OTHER ==
--- NOTE | 2017-06-09 13:58 | PDOC ---
History of Present Illness - General Chief Complaint: Hematuria Stated Complaint: BLOOD IN URINE Time Seen by Provider: 06/09/17 13:33 History Source: Patient, Custodial Records Exam Limitations: Clinical Condition - History of Present Illness Initial Comments: 06/09/17 13:53 The patient is a 66F with a PMH of MS, paraplegia, neuromuscular dysfunction of bladder s/p suprapubic catheter, anemia, UTI, dysphagia, muscle spasm, MRSA who presents to the ED from her [facility] for 3 days of blood noted in suprapubic catheter. [facility] record indicates that her blood thinner (Lovenox 40) was withheld but the bleeding continued. No hx can be provided by the patient. Past History - Past Medical History Allergies/Adverse Reactions: Allergies Allergy/AdvReac Type Severity Reaction Status Date / Time No Known Allergies Allergy Verified 06/09/17 13:27 Home Medications: Ambulatory Orders Acetaminophen 650 mg PO Q4H PRN 03/28/16 Cholecalciferol (Vitamin D3) [Vitamin D3] 1,000 unit PO DAILY 03/28/16 Levothyroxine [Synthroid -] 100 mcg PO DAILY 03/28/16 Multivitamin [Poly-Vitamin] 1 each PO DAILY 03/28/16 Polyethylene Glycol 3350 [Gavilax] 17 gm PO DAILY 03/28/16 Sennosides [Senna] 17.2 mg PO HS 03/28/16 Tamoxifen Citrate 20 mg PO DAILY 03/28/16 Docusate Sodium [Colace -] 100 mg PO HS 06/07/16 Lactobacillus Acidophilus [Bacid -] 1 tab PO DAILY tab 06/11/16 Aa/[place] Connie,[place]/Arg/C/Zn/Cu [Lps Critical Care Liquid] 960 ml PO TID Ascorbic Acid [Vitamin C] 500 mg PO DAILY 06/09/17 Calcium Alginate [Femi] 1 each TP DAILY 06/09/17 Calcium Carbonate/Vitamin D3 [Oyster Shell Calcium-Vit D Tab] 1 each PO DAILY Enoxaparin Sodium 40 mg SQ DAILY 06/09/17 Eyelid Cleanser Combination 5 [Ocusoft Lid Scrub] 1 each TP DAILY 06/09/17 Ferrous Sulfate *Liquid* [Feosol] 300 mg PO DAILY 06/09/17 Interferon Beta-1A/Albumin [Avonex 30 Mcg Vial Kit] 30 mcg IM WEEKLY 06/09/17 Oxycodone HCl 5 mg PO BID 06/09/17 Zinc Oxide 20% Topical Oint 454 gm TD DAILY 06/09/17 Zinc Sulfate 220 mg PO BID 06/09/17 Anemia: Yes Asthma: No Cancer: Yes (breast) Cardiac Disorders: No CVA: No COPD: No CHF: No Diabetes: No GI Disorders: Yes (constipation, gerd) Disorders: Yes (NEUROGENIC BLADER, UTI) HTN: No Hypercholesterolemia: No Liver Disease: No Psychiatric Problems: Yes Seizures: Yes Thyroid Disease: Yes - Surgical History Abdominal Surgery: No Appendectomy: No Cardiac Surgery: No Cholecystectomy: No Lung Surgery: No Neurologic Surgery: No Orthopedic Surgery: No - Immunization History Immunization Up to Date: Yes - Suicide/Smoking/Psychosocial Hx Smoking Status: No Smoking History: Unknown if ever smoked Have you smoked in the past 12 months: No Number of Cigarettes Smoked Daily: 0 Information on smoking cessation initiated: No 'Breaking Loose' booklet given: 06/08/16 Hx Alcohol Use: No Drug/Substance Use Hx: No Substance Use Type: None Hx Substance Use Treatment: No Review of Systems - Review of Systems Able to Perform ROS?: No Is the patient limited Mongolian proficient: No *Physical Exam - Vital Signs Last Vital Signs Temp Pulse Resp BP Pulse Ox 97.3 F L 64 20 144/68 98 06/09/17 13:28 06/09/17 13:28 06/09/17 13:28 06/09/17 13:28 06/09/17 13:28 ED Treatment Course - LABORATORY CBC & Chemistry Diagram: 06/09/17 15:15 06/09/17 15:15 *DC/Admit/Observation/Transfer Diagnosis at time of Disposition: UTI (urinary tract infection) Qualifiers: Urinary tract infection type: acute cystitis Hematuria presence: without hematuria Qualified Code(s): N30.00 - Acute cystitis without hematuria - Discharge Dispostion Condition at time of disposition: Stable Admit: Yes - Referrals Referrals: Kamran Cardenas MD [Primary Care Provider] - - Patient Instructions - Post Discharge Activity
[2017-06-09 15:21] LABS: BASO % 0.5 % (0-2.0); EOS % 1.4 % (0-4.5); HEMATOCRIT 36.1 % (32.4-45.2); HEMOGLOBIN 11.7 GM/dL (10.7-15.3); LYMPH % 50.6 % (8-40); MCH 27.6 pg (25.7-33.7); MCHC 32.5 g/dl (32.0-36.0); MEAN CELL VOLUME 85.1 fl (80-96); MEAN PLT VOLUME 9.5 fl (7.5-11.1); MONO % 6.8 % (3.8-10.2); NEUT % 40.7 % (42.8-82.8); PLATELET COUNT 231 K/MM3 (134-434); RBC 4.24 M/mm3 (3.60-5.2); RDW 15.3 % (11.6-15.6); WHITE BLOOD COUNT 8.2 K/mm3 (4.0-10.0)
[2017-06-09 15:42] LABS: ANION GAP 2 (8-16); BLOOD UREA NITROGEN 17 mg/dL (7-18); CALCIUM 8.7 mg/dL (8.5-10.1); CHLORIDE 105 mmol/L (98-107); CO2 32 mmol/L (21-32); CREATININE 0.3 mg/dL (0.55-1.02); GLUCOSE,RANDOM 99 mg/dL (74-106); INR 0.95 (0.82-1.09); POTASSIUM 4.1 mmol/L (3.5-5.1); PROTHROMBIN TIME (PATIENT) 10.7 SEC (9.98-11.88); SGOT/AST 13 U/L (15-37); SGPT/ALT 29 U/L (12-78); SODIUM 139 mmol/L (136-145)
[2017-06-09 15:43] LABS: URINE APPEARANCE CLOUDY; URINE BILIRUBIN NEGATIVE (NEGATIVE); URINE BLOOD NEGATIVE (NEGATIVE); URINE COLOR AMBER; URINE GLUCOSE (UA) NEGATIVE (NEGATIVE); URINE KETONE NEGATIVE (NEGATIVE); URINE NITRITE POSITIVE (NEGATIVE); URINE UROBILINOGEN NEGATIVE mg/dL (0.2-1.0)
[2017-06-09 15:44] LABS: ALK PHOS 84 U/L (45-117); BILIRUBIN,TOTAL 0.4 mg/dL (0.2-1.0)
[2017-06-09 15:45] LABS: ACTIVATED PTT 25.8 SECONDS (26.9-34.4)
[2017-06-09 15:45] LABS: URINE LEUK ESTERASE 3+ (NEGATIVE); URINE PROTEIN 1+ (NEGATIVE)
[2017-06-09 16:03] LABS: EPI CELLS FEW /HPF (FEW); TRIPLE PHOSPHATE CRYSTAL RARE /hpf (NONE SEEN); URINE BACTERIA MANY /hpf (NONE SEEN); URINE MUCUS RARE
--- NOTE | 2017-06-09 16:24 | PDOC ---
Attending Attestation - Resident Resident Name: Jake Leung - ED Attending Attestation I have performed the following: I have examined & evaluated the patient, The case was reviewed & discussed with the resident, I agree w/resident's findings & plan, Exceptions are as noted - HPI HPI: 06/09/17 16:08 The patient is a 66 year old female with a significant past medical history of MS, paraplegia, neuromuscular dysfunction of bladder s/p suprapubic catheter, anemia, recurrent UTI, dysphagia, muscle spasm, MRSA who presents to the emergency department from her [place] for 3 day complaint of blood noted in urine. As per long-term records, pt has had bloody urine. They held the patient's blood thinner (Lovenox 40), but the bleeding continued. Pt denies any complaints. Denies any pain. Denies F/C. - Physicial Exam PE: 06/09/17 16:24 "GENERAL: Awake, alert, in no acute distress HEAD: No signs of trauma EYES: PERRLA, EOMI, sclera anicteric, conjunctiva clear ENT: Auricles normal inspection, hearing grossly normal, nares patent, oropharynx clear without exudates. Moist mucosa NECK: Nontender, no stepoffs, Normal ROM, supple, no lymphadenopathy, JVD, or masses LUNGS: Breath sounds equal, clear to auscultation bilaterally. No wheezes, and no crackles HEART: Regular rate and rhythm, normal S1 and S2, no murmurs, rubs or gallops ABDOMEN: Soft, nontender. Suprapubic catheter in place draining cloudy orange urine, no blood clots noted. EXTREMITIES: Normal range of motion, no edema. No clubbing or cyanosis. No cords, erythema, or tenderness NEUROLOGICAL: Cranial nerves II through XII intact. 5/5 strength and sensation in all extremities, Normal speech, normal gait SKIN: Warm, Dry, normal turgor, no rashes or lesions noted. " - Medical Decision Making 06/09/17 16:25 66 F with hematuria x 3 days. Likely UTI given pt's extensive history of UTIs and chronic indwelling catheter. Pt with no fever in ER. Urine in catheter bag is cloudy with white sediment. - Labs, UA, UCx - Bladder and kidney US to r/o obstruction - Abx
[2017-06-09] MEDS ORDERED: PIPERACILLIN/TAZOB 3.375 GM/50 ML PRE-DOCKED IV ONE (16:35)
[2017-06-09] MEDS ORDERED: PIPERACILLIN/TAZOB 3.375 GM 3.375 GM/50 ML BAG IVPB ONE (16:49)
[2017-06-09] MEDS ORDERED: ACETAMINOPHEN 325 MG TABLET (FP) PO PRN (17:12)
--- NOTE | 2017-06-09 17:29 | HP ---
Admitting History and Physical - Primary Care Physician PCP: Kamran Cardenas - Admission Chief Complaint: I feel fine History of Present Illness: Mrs Gerardo is a pleasantly demented 66 year old female who was sent in from [facility] for hematuria. She had bleeding for the past 3 days, even after her lovenox was held. Here she was found to a UTI and is being admitted. Patient is demented and unable to obtain a history or review of systems, all she says is that she is fine. SNF chart reviewed. History Source: Medical Record, Transfer Record Limitations to Obtaining History: Dementia - Past Medical History ADVERTISING INTERN: Yes: Dementia, Multiple Sclerosis Gastrointestinal: Yes: GERD Renal/: Yes: Neurogenic Bladder, Renal Calculi, UTI Rheumatology: Yes: Other (multiple sclerosis) Endocrine: Yes: Hypothyroidism - Past Surgical History Past Surgical History: Yes: Mastectomy - Smoking History Smoking history: Unknown if ever smoked Have you smoked in the past 12 months: No Aproximately how many cigarettes per day: 0 - Alcohol/Substance Use Hx Alcohol Use: No History of Substance Use: reports: None - Social History Usual Living Arrangement: Yes: [facility] ADL: Support Services History of Recent Travel: No Home Medications - Allergies Allergies/Adverse Reactions: Allergies Allergy/AdvReac Type Severity Reaction Status Date / Time No Known Allergies Allergy Verified 06/09/17 13:27 - Home Medications Home Medications: Ambulatory Orders Acetaminophen 650 mg PO Q4H PRN 03/28/16 Cholecalciferol (Vitamin D3) [Vitamin D3] 1,000 unit PO DAILY 03/28/16 Levothyroxine [Synthroid -] 100 mcg PO DAILY 03/28/16 Multivitamin [Poly-Vitamin] 1 each PO DAILY 03/28/16 Polyethylene Glycol 3350 [Gavilax] 17 gm PO DAILY 03/28/16 Sennosides [Senna] 17.2 mg PO HS 03/28/16 Tamoxifen Citrate 20 mg PO DAILY 03/28/16 Docusate Sodium [Colace -] 100 mg PO HS 06/07/16 Lactobacillus Acidophilus [Bacid -] 1 tab PO DAILY tab 06/11/16 Aa/[place] Connie,[place]/Arg/C/Zn/Cu [Lps Critical Care Liquid] 960 ml PO TID Ascorbic Acid [Vitamin C] 500 mg PO DAILY 06/09/17 Calcium Alginate [Femi] 1 each TP DAILY 06/09/17 Calcium Carbonate/Vitamin D3 [Oyster Shell Calcium-Vit D Tab] 1 each PO DAILY Enoxaparin Sodium 40 mg SQ DAILY 06/09/17 Eyelid Cleanser Combination 5 [Ocusoft Lid Scrub] 1 each TP DAILY 06/09/17 Ferrous Sulfate *Liquid* [Feosol] 300 mg PO DAILY 06/09/17 Interferon Beta-1A/Albumin [Avonex 30 Mcg Vial Kit] 30 mcg IM WEEKLY 06/09/17 Oxycodone HCl 5 mg PO BID 06/09/17 Zinc Oxide 20% Topical Oint 454 gm TD DAILY 06/09/17 Zinc Sulfate 220 mg PO BID 06/09/17 Family Disease History - Family Disease History Family History: Unable to Obtain Review of Systems Unable to obtain ROS, reason: dementia Physical Examination Vital Signs: Vital Signs Temperature 36.3 C L 06/09/17 13:28 Pulse Rate 64 06/09/17 13:28 Respiratory Rate 20 06/09/17 13:28 Blood Pressure 144/68 06/09/17 13:28 O2 Sat by Pulse Oximetry (%) 98 06/09/17 13:28 Constitutional: Yes: Well Nourished, No Distress, Calm Eyes: Yes: Conjunctiva Clear, EOM Intact Cardiovascular: Yes: Regular Rate and Rhythm. No: Gallop, Murmur, Rub Respiratory: Yes: Regular, CTA Bilaterally. No: Rales, Rhonchi, Wheezes Gastrointestinal: Yes: Normal Bowel Sounds, Soft. No: Distention, Tenderness Renal/: Yes: Other (suprapubic catheter). No: Hematuria Extremities: Yes: WNL Edema: No Labs: CBC, BMP 06/09/17 15:15 06/09/17 15:15 Imaging - Results Ultrasound: Report Reviewed Problem List - Problems (1) UTI (urinary tract infection) Assessment/Plan: -patient with history of UTIs secondary to enterococcus, pseudomonas, klebsiella , and providencia -admit to the hospital for IV antibiotics -start zosyn in the ED -ID consulted Code(s): N39.0 - URINARY TRACT INFECTION, SITE NOT SPECIFIED Qualifiers: Urinary tract infection type: acute cystitis Hematuria presence: without hematuria Qualified Code(s): N30.00 - Acute cystitis without hematuria (2) Breast CA Assessment/Plan: -continue tamoxifen Code(s): C50.919 - MALIGNANT NEOPLASM OF UNSP SITE OF UNSPECIFIED FEMALE BREAST (3) GERD (gastroesophageal reflux disease) Assessment/Plan: -continue protonix Code(s): K21.9 - GASTRO-ESOPHAGEAL REFLUX DISEASE WITHOUT ESOPHAGITIS (4) Hypothyroid Assessment/Plan: -continue synthroid Code(s): E03.9 - HYPOTHYROIDISM, UNSPECIFIED (5) Multiple sclerosis Assessment/Plan: -chronic with dementia Code(s): G35 - MULTIPLE SCLEROSIS (6) Nephrolithiasis Assessment/Plan: -chronic -not obstructing Code(s): N20.0 - CALCULUS OF KIDNEY
[2017-06-09] MEDS: SODIUM CHLORIDE 1,000 ML IV SCH (18:00)
[2017-06-09] MEDS ORDERED: PATIENT'S OWN MEDICATION (NON-FORMULARY) (Aa/Hydro Coll,Whey/Arg/C/Zn/Cu [Lps Critical Car PO SCH (22:00)
[2017-06-10] MEDS: SENNOSIDES 8.6MG TABLET (FP) PO SCH ×2 (02:33→23:01)
[2017-06-10] MEDS: ZINC SULFATE 220 MG CAPSULE (FP) PO SCH ×3 (02:33→23:00)
[2017-06-10] MEDS: DOCUSATE SODIUM 100 MG CAPSULE (FP) PO SCH ×2 (02:33→23:00)
[2017-06-10] MEDS ORDERED: LEVOTHYROXINE NA 25 MCG TABLET (FP) ONE (07:21)
[2017-06-10] MEDS: LEVOTHYROXINE NA 100 MCG TABLET (FP) PO SCH (07:25)
[2017-06-10 08:04] LABS: BASO % 0.5 % (0-2.0); EOS % 1.5 % (0-4.5); HEMATOCRIT 36.4 % (32.4-45.2); HEMOGLOBIN 11.4 GM/dL (10.7-15.3); MCHC 31.4 g/dl (32.0-36.0); MEAN PLT VOLUME 9.6 fl (7.5-11.1); MONO % 5.5 % (3.8-10.2); NEUT % 49.5 % (42.8-82.8); PLATELET COUNT 217 K/MM3 (134-434); RBC 4.23 M/mm3 (3.60-5.2); RDW 15.9 % (11.6-15.6); WHITE BLOOD COUNT 9.5 K/mm3 (4.0-10.0)
[2017-06-10 08:40] LABS: ANION GAP 6 (8-16); BLOOD UREA NITROGEN 19 mg/dL (7-18); CALCIUM 8.4 mg/dL (8.5-10.1); CHLORIDE 109 mmol/L (98-107); CO2 27 mmol/L (21-32); CREATININE 0.3 mg/dL (0.55-1.02); GLUCOSE,RANDOM 83 mg/dL (74-106); MAGNESIUM 2.3 mg/dL (1.8-2.4); PHOSPHOROUS 3.7 mg/dL (2.5-4.9); SODIUM 142 mmol/L (136-145)
[2017-06-10] MEDS ORDERED: PIPERACIL/TAZOB 3.375 GM 3.375 GM/50 ML PREMIX IVPB ONE (09:32)
[2017-06-10] MEDS ORDERED: EYELID CLEANSER COMBINATION TP SCH (10:00)
[2017-06-10] MEDS ORDERED: PIPERACILLIN/TAZOB 3.375 GM 3.375 GM in DEXTROSE 5%-WATER - 100 ML IVPB ONE (10:00)
--- NOTE | 2017-06-10 10:11 | PN ---
Progress Note, Physician Chief Complaint: Patient without complaint. Denies cp, sob, n/v. - Current Medication List Current Medications: Active Medications Acetaminophen (Tylenol -) 650 mg PO Q4H PRN PRN Reason: PAIN OR FEVER Ascorbic Acid (Vitamin C -) 500 mg PO DAILY [facility] Calcium Carbonate/Cholecalciferol (Os-Mikie 500+D -) 1 tab PO DAILY [facility] Cholecalciferol (Vitamin D3 -) 1,000 unit PO DAILY [facility] Docusate Sodium (Colace -) 100 mg PO HS [facility] Last Admin: 06/10/17 02:33 Dose: Not Given Ferrous Sulfate (Feosol) 300 mg PO DAILY [facility] Sodium Chloride (Normal Saline -) 1,000 mls @ 42 mls/hr IV ASDIR [facility] Last Admin: 06/09/17 18:00 Dose: 42 mls/hr Piperacillin Sod/Tazobactam (Sod 3.375 gm/ Dextrose) 100 mls @ 200 mls/hr IVPB ONCE ONE Stop: 06/10/17 10:29 Lactobacillus Acidophilus (Bacid -) 1 tab PO DAILY [facility] Levothyroxine Sodium (Synthroid -) 100 mcg PO DAILY@0700 [facility] Last Admin: 06/10/17 07:25 Dose: 100 mcg Multi-Ingredient Ointment (Zinc Oxide) 1 applic TP DAILY [facility] Multivitamins/Minerals/Vitamin C (Tab-A-Vit -) 1 tab PO DAILY [facility] Non-Formulary Medication (Aa/[place]hey/Arg/C/Zn/Cu [Lps Critical Care Liquid]) 960 ml PO TID [facility] Non-Formulary Medication (Calcium Alginate [Femi]) 1 each TP DAILY [facility] Non-Formulary Medication (Eyelid Cleanser Combination 5 [Ocusoft Lid Scrub]) 1 each TP DAILY [facility] Pantoprazole Sodium (Protonix -) 40 mg PO DAILY [facility] Polyethylene Glycol (Miralax (For Daily Use) -) 17 gm PO DAILY [facility] Senna (Senna -) 1 tab PO HS [facility] Last Admin: 06/10/17 02:33 Dose: Not Given Tamoxifen Citrate (Tamoxifen Citrate) 20 mg PO DAILY [facility] Zinc Sulfate (Orazinc -) 220 mg PO BID [facility] Last Admin: 06/10/17 02:33 Dose: Not Given - Objective Vital Signs: Vital Signs Temperature 36.8 C 06/10/17 08:59 Pulse Rate 80 06/10/17 08:59 Respiratory Rate 22 06/10/17 08:59 Blood Pressure 120/66 06/10/17 08:59 O2 Sat by Pulse Oximetry (%) 98 06/10/17 08:59 Constitutional: Yes: Well Nourished, No Distress, Calm Cardiovascular: Yes: Regular Rate and Rhythm. No: Gallop, Murmur, Rub Respiratory: Yes: Regular, CTA Bilaterally. No: Rales, Rhonchi, Wheezes Gastrointestinal: Yes: Normal Bowel Sounds, Soft. No: Distention, Tenderness Extremities: Yes: WNL Edema: No Labs: CBC, BMP 06/10/17 06:00 06/10/17 06:00 INR, PTT INR 0.95 (0.82-1.09) 06/09/17 15:15 Problem List - Problems (1) UTI (urinary tract infection) Code(s): N39.0 - URINARY TRACT INFECTION, SITE NOT SPECIFIED Qualifiers: Urinary tract infection type: acute cystitis Hematuria presence: without hematuria Qualified Code(s): N30.00 - Acute cystitis without hematuria (2) Breast CA Code(s): C50.919 - MALIGNANT NEOPLASM OF UNSP SITE OF UNSPECIFIED FEMALE BREAST (3) GERD (gastroesophageal reflux disease) Code(s): K21.9 - GASTRO-ESOPHAGEAL REFLUX DISEASE WITHOUT ESOPHAGITIS (4) Hypothyroid Code(s): E03.9 - HYPOTHYROIDISM, UNSPECIFIED (5) Multiple sclerosis Code(s): G35 - MULTIPLE SCLEROSIS (6) Nephrolithiasis Code(s): N20.0 - CALCULUS OF KIDNEY Assessment/Plan (1) UTI (urinary tract infection) Assessment/Plan: -ID consulted and case discussed -give second dose of zosyn today -await ID recommendations Code(s): N39.0 - URINARY TRACT INFECTION, SITE NOT SPECIFIED Qualifiers: Urinary tract infection type: acute cystitis Hematuria presence: without hematuria Qualified Code(s): N30.00 - Acute cystitis without hematuria (2) Breast CA Assessment/Plan: -continue tamoxifen Code(s): C50.919 - MALIGNANT NEOPLASM OF UNSP SITE OF UNSPECIFIED FEMALE BREAST (3) GERD (gastroesophageal reflux disease) Assessment/Plan: -continue protonix Code(s): K21.9 - GASTRO-ESOPHAGEAL REFLUX DISEASE WITHOUT ESOPHAGITIS (4) Hypothyroid Assessment/Plan: -continue synthroid Code(s): E03.9 - HYPOTHYROIDISM, UNSPECIFIED (5) Multiple sclerosis Assessment/Plan: -chronic with dementia Code(s): G35 - MULTIPLE SCLEROSIS (6) Nephrolithiasis Assessment/Plan: -chronic -not obstructing Code(s): N20.0 - CALCULUS OF KIDNEY
[2017-06-10] MEDS: PANTOPRAZOLE 40 MG TABLET (FP) PO SCH (10:41)
[2017-06-10] MEDS: LACTOBACILLUS ACIDOPHILUS 1 EACH TAB (FP) PO SCH (10:41)
[2017-06-10] MEDS: FERROUS SO4 300 MG/5 ML ORAL SOLN UNIT DOSE CUPS PO SCH (10:41)
[2017-06-10] MEDS: MULTIVITAMINS (DAILY MVI) TABLET (FP) PO SCH (10:41)
[2017-06-10] MEDS: CALCIUM 500MG/VIT-D 200 UNITS COMBO TABLET (FP) PO SCH (10:41)
[2017-06-10] MEDS: CHOLECALCIFEROL (VITAMIN D3) 1,000 UNIT TABLET (FP) PO SCH (10:42)
[2017-06-10] MEDS: ASCORBIC ACID 500 MG TABLET (FP) PO SCH (10:42)
[2017-06-10] MEDS: TAMOXIFEN CITRATE 10 MG TABLET PO SCH (10:42)
[2017-06-10] MEDS: POLYETHYLENE GLYCOL 3350 119 GM BTL PO SCH (10:55)
[2017-06-10] MEDS: ZINC OXIDE 20% TOPICAL OINTMENT 30 GM TUBE TP SCH (10:56)
[2017-06-10] MEDS ORDERED: PIPERACILLIN/TAZOB 3.375 GM 3.375 GM/50 ML BAG IVPB ONE (10:57)
[2017-06-10] MEDS ORDERED: CEFTRIAXONE 1 G/50 ML PREMIX 50 ML IVPB ONE (14:28)
[2017-06-10] MEDS: SODIUM CHLORIDE 1,000 ML IV SCH (17:02)
[2017-06-10 17:34] VITALS: BMI 27.9
[2017-06-11] MEDS: LEVOTHYROXINE NA 100 MCG TABLET (FP) PO SCH (06:26)
[2017-06-11 08:12] LABS: BASO % 0.4 % (0-2.0); HEMATOCRIT 35.7 % (32.4-45.2); HEMOGLOBIN 11.5 GM/dL (10.7-15.3); LYMPH % 48.2 % (8-40); MCH 27.8 pg (25.7-33.7); MCHC 32.2 g/dl (32.0-36.0); MEAN CELL VOLUME 86.2 fl (80-96); MEAN PLT VOLUME 9.5 fl (7.5-11.1); MONO % 6.2 % (3.8-10.2); NEUT % 43.2 % (42.8-82.8); PLATELET COUNT 190 K/MM3 (134-434); RBC 4.15 M/mm3 (3.60-5.2); RDW 15.4 % (11.6-15.6); WHITE BLOOD COUNT 7.4 K/mm3 (4.0-10.0)
[2017-06-11 08:31] LABS: ANION GAP 8 (8-16); BLOOD UREA NITROGEN 11 mg/dL (7-18); CALCIUM 8.2 mg/dL (8.5-10.1); CHLORIDE 110 mmol/L (98-107); CO2 24 mmol/L (21-32); GLUCOSE,RANDOM 65 mg/dL (74-106); MAGNESIUM 1.9 mg/dL (1.8-2.4); POTASSIUM 3.7 mmol/L (3.5-5.1); SODIUM 142 mmol/L (136-145)
[2017-06-11 08:33] LABS: CREATININE 0.2 mg/dL (0.55-1.02)
[2017-06-11] MEDS: CEFTRIAXONE 1 G/50 ML PREMIX 50 ML IVPB SCH (10:17)
[2017-06-11] MEDS: CALCIUM 500MG/VIT-D 200 UNITS COMBO TABLET (FP) PO SCH (10:18)
[2017-06-11] MEDS: POLYETHYLENE GLYCOL 3350 119 GM BTL PO SCH (10:18)
[2017-06-11] MEDS: ZINC SULFATE 220 MG CAPSULE (FP) PO SCH ×2 (10:18→22:04)
[2017-06-11] MEDS: PANTOPRAZOLE 40 MG TABLET (FP) PO SCH (10:18)
[2017-06-11] MEDS: LACTOBACILLUS ACIDOPHILUS 1 EACH TAB (FP) PO SCH (10:18)
[2017-06-11] MEDS: MULTIVITAMINS (DAILY MVI) TABLET (FP) PO SCH (10:18)
[2017-06-11] MEDS: CHOLECALCIFEROL (VITAMIN D3) 1,000 UNIT TABLET (FP) PO SCH (10:18)
[2017-06-11] MEDS: ASCORBIC ACID 500 MG TABLET (FP) PO SCH (10:18)
[2017-06-11] MEDS: FERROUS SO4 300 MG/5 ML ORAL SOLN UNIT DOSE CUPS PO SCH (10:20)
[2017-06-11] MEDS: TAMOXIFEN CITRATE 10 MG TABLET PO SCH (10:20)
[2017-06-11] MEDS: ZINC OXIDE 20% TOPICAL OINTMENT 30 GM TUBE TP SCH (10:24)
--- NOTE | 2017-06-11 13:59 | CON.ID ---
Consult Consult Specialty:: infectious diseases Referred by:: Reason for Consultation:: dementia,uti - History of Present Illness History of Present Illness: pleasantly demented 66 year old female who was sent in from [facility] for hematuria. She had bleeding for the past 3 days, even after her lovenox was held. she was found to a UTI and is being admitted. Patient is demented and unable to obtain a history or review of systems, all she says is that she is fine. SNF chart reviewed. 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 Gastrointestinal: Yes: GERD Renal/: Yes: Neurogenic Bladder, Renal Calculi, UTI Rheumatology: Yes: Other (multiple sclerosis) Endocrine: Yes: Hypothyroidism - Past Surgical History Past Surgical History: Yes: Mastectomy - Alcohol/Substance Use Hx Alcohol Use: No History of Substance Use: reports: None - Smoking History Smoking history: Unknown if ever smoked Have you smoked in the past 12 months: No Aproximately how many cigarettes per day: 0 - Social History ADL: Support Services History of Recent Travel: No Home Medications - Allergies Allergies/Adverse Reactions: Allergies Allergy/AdvReac Type Severity Reaction Status Date / Time No Known Allergies Allergy Verified 06/09/17 13:27 - Home Medications Home Medications: Ambulatory Orders Acetaminophen 650 mg PO Q4H PRN 03/28/16 Cholecalciferol (Vitamin D3) [Vitamin D3] 1,000 unit PO DAILY 03/28/16 Levothyroxine [Synthroid -] 100 mcg PO DAILY 03/28/16 Multivitamin [Poly-Vitamin] 1 each PO DAILY 03/28/16 Polyethylene Glycol 3350 [Gavilax] 17 gm PO DAILY 03/28/16 Sennosides [Senna] 17.2 mg PO HS 03/28/16 Tamoxifen Citrate 20 mg PO DAILY 03/28/16 Docusate Sodium [Colace -] 100 mg PO HS 06/07/16 Lactobacillus Acidophilus [Bacid -] 1 tab PO DAILY tab 06/11/16 Aa/[place] Connie,[place]hey/Arg/C/Zn/Cu [Lps Critical Care Liquid] 960 ml PO TID Ascorbic Acid [Vitamin C] 500 mg PO DAILY 06/09/17 Calcium Alginate [Femi] 1 each TP DAILY 06/09/17 Calcium Carbonate/Vitamin D3 [Oyster Shell Calcium-Vit D Tab] 1 each PO DAILY Enoxaparin Sodium 40 mg SQ DAILY 06/09/17 Eyelid Cleanser Combination 5 [Ocusoft Lid Scrub] 1 each TP DAILY 06/09/17 Ferrous Sulfate *Liquid* [Feosol] 300 mg PO DAILY 06/09/17 Interferon Beta-1A/Albumin [Avonex 30 Mcg Vial Kit] 30 mcg IM WEEKLY 06/09/17 Oxycodone HCl 5 mg PO BID 06/09/17 Zinc Oxide 20% Topical Oint 454 gm TD DAILY 06/09/17 Zinc Sulfate 220 mg PO BID 06/09/17 Review of Systems Unable to obtain ROS, reason: unable to obtain Physical Exam Vital Signs: Vital Signs Temperature 98.1 F 06/11/17 09:00 Pulse Rate 71 06/11/17 09:00 Respiratory Rate 16 06/11/17 09:00 Blood Pressure 126/65 06/11/17 09:00 O2 Sat by Pulse Oximetry (%) 99 06/11/17 09:00 Constitutional: Yes: No Distress, Calm Eyes: Yes: Conjunctiva Clear Cardiovascular: Yes: S1, S2 Respiratory: Yes: Regular, CTA Bilaterally Gastrointestinal: Yes: Normal Bowel Sounds, Soft Renal/: Yes: Chopra Present (suprapubic) Musculoskeletal: Yes: Other Extremities: Yes: Other Neurological: Yes: Alert, Other Psychiatric: Yes: Alert, Other Labs: CBC, BMP 06/11/17 07:00 06/11/17 07:00 Assessment/Plan Problem List - Problems (1) UTI (urinary tract infection) Code(s): N39.0 - URINARY TRACT INFECTION, SITE NOT SPECIFIED Qualifiers: Urinary tract infection type: acute cystitis Hematuria presence: without hematuria Qualified Code(s): N30.00 - Acute cystitis without hematuria (2) Breast CA Code(s): C50.919 - MALIGNANT NEOPLASM OF UNSP SITE OF UNSPECIFIED FEMALE BREAST (3) GERD (gastroesophageal reflux disease) Code(s): K21.9 - GASTRO-ESOPHAGEAL REFLUX DISEASE WITHOUT ESOPHAGITIS (4) Hypothyroid Code(s): E03.9 - HYPOTHYROIDISM, UNSPECIFIED (5) Multiple sclerosis Code(s): G35 - MULTIPLE SCLEROSIS (6) Nephrolithiasis Code(s): N20.0 - CALCULUS OF KIDNEY plan hydration will start on abx rest as per team monitor for hematuria
--- NOTE | 2017-06-11 14:04 | PN ---
Progress Note, Physician History of Present Illness: patient stable says no complaints - Current Medication List Current Medications: Active Medications Acetaminophen (Tylenol -) 650 mg PO Q4H PRN PRN Reason: PAIN OR FEVER Ascorbic Acid (Vitamin C -) 500 mg PO DAILY [facility] Last Admin: 06/11/17 10:18 Dose: 500 mg Calcium Carbonate/Cholecalciferol (Os-Mikie 500+D -) 1 tab PO DAILY [facility] Last Admin: 06/11/17 10:18 Dose: 1 tab Cholecalciferol (Vitamin D3 -) 1,000 unit PO DAILY [facility] Last Admin: 06/11/17 10:18 Dose: 1,000 unit Docusate Sodium (Colace -) 100 mg PO HS [facility] Last Admin: 06/10/17 23:00 Dose: 100 mg Ferrous Sulfate (Feosol) 300 mg PO DAILY [facility] Last Admin: 06/11/17 10:20 Dose: Not Given Sodium Chloride (Normal Saline -) 1,000 mls @ 42 mls/hr IV ASDIR [facility] Last Admin: 06/10/17 17:02 Dose: 42 mls/hr CEFTRIAXONE 1 G/50 ML PREMIX (Ceftriaxone 1 Gm-D5w Bag) 50 mls @ 100 mls/hr IVPB DAILY [facility] Last Admin: 06/11/17 10:17 Dose: 100 mls/hr Lactobacillus Acidophilus (Bacid -) 1 tab PO DAILY [facility] Last Admin: 06/11/17 10:18 Dose: 1 tab Levothyroxine Sodium (Synthroid -) 100 mcg PO DAILY@0700 [facility] Last Admin: 06/11/17 06:26 Dose: 100 mcg Multi-Ingredient Ointment (Zinc Oxide) 1 applic TP DAILY [facility] Last Admin: 06/11/17 10:24 Dose: Not Given Multivitamins/Minerals/Vitamin C (Tab-A-Vit -) 1 tab PO DAILY [facility] Last Admin: 06/11/17 10:18 Dose: 1 tab Non-Formulary Medication (Aa/[place] Connie,Whey/Arg/C/Zn/Cu [Lps Critical Care Liquid]) 960 ml PO TID [facility] Non-Formulary Medication (Calcium Alginate [Femi]) 1 each TP DAILY [facility] Non-Formulary Medication (Eyelid Cleanser Combination 5 [Ocusoft Lid Scrub]) 1 each TP DAILY [facility] Pantoprazole Sodium (Protonix -) 40 mg PO DAILY [facility] Last Admin: 06/11/17 10:18 Dose: 40 mg Polyethylene Glycol (Miralax (For Daily Use) -) 17 gm PO DAILY [facility] Last Admin: 06/11/17 10:18 Dose: 17 gm Senna (Senna -) 1 tab PO HS [facility] Last Admin: 06/10/17 23:01 Dose: 1 tab Tamoxifen Citrate (Tamoxifen Citrate) 20 mg PO DAILY [facility] Last Admin: 06/11/17 10:20 Dose: Not Given Zinc Sulfate (Orazinc -) 220 mg PO BID [facility] Last Admin: 06/11/17 10:18 Dose: 220 mg - Objective Vital Signs: Vital Signs Temperature 98.1 F 06/11/17 09:00 Pulse Rate 71 06/11/17 09:00 Respiratory Rate 16 06/11/17 09:00 Blood Pressure 126/65 06/11/17 09:00 O2 Sat by Pulse Oximetry (%) 99 06/11/17 09:00 Constitutional: Yes: Calm Eyes: Yes: Conjunctiva Clear HENT: Yes: Atraumatic Neck: Yes: Supple Cardiovascular: Yes: Regular Rate and Rhythm Respiratory: Yes: Regular, CTA Bilaterally Gastrointestinal: Yes: Normal Bowel Sounds, Soft Genitourinary: Yes: Chopra Present (suprapubic) Extremities: Yes: WNL Neurological: Yes: Alert Psychiatric: Yes: Alert, Other Labs: CBC, BMP 06/11/17 07:00 06/11/17 07:00 INR, PTT INR 0.95 (0.82-1.09) 06/09/17 15:15 Assessment/Plan Problem List - Problems (1) UTI (urinary tract infection) Code(s): N39.0 - URINARY TRACT INFECTION, SITE NOT SPECIFIED Qualifiers: Urinary tract infection type: acute cystitis Hematuria presence: without hematuria Qualified Code(s): N30.00 - Acute cystitis without hematuria (2) Breast CA Code(s): C50.919 - MALIGNANT NEOPLASM OF UNSP SITE OF UNSPECIFIED FEMALE BREAST (3) GERD (gastroesophageal reflux disease) Code(s): K21.9 - GASTRO-ESOPHAGEAL REFLUX DISEASE WITHOUT ESOPHAGITIS (4) Hypothyroid Code(s): E03.9 - HYPOTHYROIDISM, UNSPECIFIED (5) Multiple sclerosis Code(s): G35 - MULTIPLE SCLEROSIS (6) Nephrolithiasis Code(s): N20.0 - CALCULUS OF KIDNEY plan continue abx repeat cx ordered
--- NOTE | 2017-06-11 14:52 | PN ---
Progress Note, Physician Chief Complaint: No new complaints History of Present Illness: 66F with a PMH of MS, paraplegia, neuromuscular dysfunction of bladder s/p suprapubic catheter, anemia, UTI, dysphagia, muscle spasm,found to a UTI - Current Medication List Current Medications: Active Medications Acetaminophen (Tylenol -) 650 mg PO Q4H PRN PRN Reason: PAIN OR FEVER Ascorbic Acid (Vitamin C -) 500 mg PO DAILY [facility] Last Admin: 06/11/17 10:18 Dose: 500 mg Calcium Carbonate/Cholecalciferol (Os-Mikie 500+D -) 1 tab PO DAILY [facility] Last Admin: 06/11/17 10:18 Dose: 1 tab Cholecalciferol (Vitamin D3 -) 1,000 unit PO DAILY [facility] Last Admin: 06/11/17 10:18 Dose: 1,000 unit Docusate Sodium (Colace -) 100 mg PO HS [facility] Last Admin: 06/10/17 23:00 Dose: 100 mg Ferrous Sulfate (Feosol) 300 mg PO DAILY [facility] Last Admin: 06/11/17 10:20 Dose: Not Given Sodium Chloride (Normal Saline -) 1,000 mls @ 42 mls/hr IV ASDIR [facility] Last Admin: 06/10/17 17:02 Dose: 42 mls/hr CEFTRIAXONE 1 G/50 ML PREMIX (Ceftriaxone 1 Gm-D5w Bag) 50 mls @ 100 mls/hr IVPB DAILY [facility] Last Admin: 06/11/17 10:17 Dose: 100 mls/hr Lactobacillus Acidophilus (Bacid -) 1 tab PO DAILY [facility] Last Admin: 06/11/17 10:18 Dose: 1 tab Levothyroxine Sodium (Synthroid -) 100 mcg PO DAILY@0700 [facility] Last Admin: 06/11/17 06:26 Dose: 100 mcg Multi-Ingredient Ointment (Zinc Oxide) 1 applic TP DAILY [facility] Last Admin: 06/11/17 10:24 Dose: Not Given Multivitamins/Minerals/Vitamin C (Tab-A-Vit -) 1 tab PO DAILY [facility] Last Admin: 06/11/17 10:18 Dose: 1 tab Non-Formulary Medication (Aa/[place] Connie,[place]hey/Arg/C/Zn/Cu [Lps Critical Care Liquid]) 960 ml PO TID [facility] Non-Formulary Medication (Calcium Alginate [Femi]) 1 each TP DAILY [facility] Non-Formulary Medication (Eyelid Cleanser Combination 5 [Ocusoft Lid Scrub]) 1 each TP DAILY [facility] Pantoprazole Sodium (Protonix -) 40 mg PO DAILY [facility] Last Admin: 06/11/17 10:18 Dose: 40 mg Polyethylene Glycol (Miralax (For Daily Use) -) 17 gm PO DAILY [facility] Last Admin: 06/11/17 10:18 Dose: 17 gm Senna (Senna -) 1 tab PO HS [facility] Last Admin: 06/10/17 23:01 Dose: 1 tab Tamoxifen Citrate (Tamoxifen Citrate) 20 mg PO DAILY [facility] Last Admin: 06/11/17 10:20 Dose: Not Given Zinc Sulfate (Orazinc -) 220 mg PO BID [facility] Last Admin: 06/11/17 10:18 Dose: 220 mg - Objective Vital Signs: Vital Signs Temperature 98.1 F 06/11/17 09:00 Pulse Rate 71 06/11/17 09:00 Respiratory Rate 16 06/11/17 09:00 Blood Pressure 126/65 06/11/17 09:00 O2 Sat by Pulse Oximetry (%) 99 06/11/17 09:00 Middle aged F oriented to self not in distress HEENT: Mm moist, no anemia, PERRLA EOMI NECK; No JVD No Bruit CHEST: CTA B/L CVS: S1S2 R no m/g/r ABD: suprapubic cathter at place, no distention, non tender Bs + EXT: No edema, contracture [employer]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, no interval changes Labs: CBC, BMP 06/11/17 07:00 06/11/17 07:00 INR, PTT INR 0.95 (0.82-1.09) 06/09/17 15:15 Problem List - Problems (1) UTI (urinary tract infection) Assessment/Plan: On abx so far cultures are negative Code(s): N39.0 - URINARY TRACT INFECTION, SITE NOT SPECIFIED Qualifiers: Urinary tract infection type: acute cystitis Hematuria presence: without hematuria Qualified Code(s): N30.00 - Acute cystitis without hematuria (2) Dehydration Assessment/Plan: IV Hydration F/U BMP Code(s): E86.0 - DEHYDRATION (3) GERD (gastroesophageal reflux disease) Assessment/Plan: On PPI Code(s): K21.9 - GASTRO-ESOPHAGEAL REFLUX DISEASE WITHOUT ESOPHAGITIS (4) Neurogenic bladder Assessment/Plan: S/p Suprapubic catheter Code(s): N31.9 - NEUROMUSCULAR DYSFUNCTION OF BLADDER, UNSPECIFIED (5) Hypothyroid Assessment/Plan: On Levothyroxine Code(s): E03.9 - HYPOTHYROIDISM, UNSPECIFIED (6) Multiple sclerosis Assessment/Plan: chronic with spasticity Code(s): G35 - MULTIPLE SCLEROSIS
[2017-06-11] MEDS: SODIUM CHLORIDE 1,000 ML IV SCH (17:42)
[2017-06-11] MEDS: DOCUSATE SODIUM 100 MG CAPSULE (FP) PO SCH (22:04)
[2017-06-11] MEDS: SENNOSIDES 8.6MG TABLET (FP) PO SCH (22:04)
[2017-06-12] MEDS: LEVOTHYROXINE NA 100 MCG TABLET (FP) PO SCH (06:37)
--- NOTE | 2017-06-12 09:03 | PN ---
Progress Note, Physician History of Present Illness: patient stable no complaints urine looks clean--no hematuria - Current Medication List Current Medications: Active Medications Acetaminophen (Tylenol -) 650 mg PO Q4H PRN PRN Reason: PAIN OR FEVER Ascorbic Acid (Vitamin C -) 500 mg PO DAILY [facility] Last Admin: 06/11/17 10:18 Dose: 500 mg Calcium Carbonate/Cholecalciferol (Os-Mikie 500+D -) 1 tab PO DAILY [facility] Last Admin: 06/11/17 10:18 Dose: 1 tab Cholecalciferol (Vitamin D3 -) 1,000 unit PO DAILY [facility] Last Admin: 06/11/17 10:18 Dose: 1,000 unit Docusate Sodium (Colace -) 100 mg PO HS [facility] Last Admin: 06/11/17 22:04 Dose: 100 mg Ferrous Sulfate (Feosol) 300 mg PO DAILY [facility] Last Admin: 06/11/17 10:20 Dose: Not Given Sodium Chloride (Normal Saline -) 1,000 mls @ 42 mls/hr IV ASDIR [facility] Last Admin: 06/11/17 17:42 Dose: 42 mls/hr CEFTRIAXONE 1 G/50 ML PREMIX (Ceftriaxone 1 Gm-D5w Bag) 50 mls @ 100 mls/hr IVPB DAILY [facility] Last Admin: 06/11/17 10:17 Dose: 100 mls/hr Lactobacillus Acidophilus (Bacid -) 1 tab PO DAILY [facility] Last Admin: 06/11/17 10:18 Dose: 1 tab Levothyroxine Sodium (Synthroid -) 100 mcg PO DAILY@0700 [facility] Last Admin: 06/12/17 06:37 Dose: 100 mcg Multi-Ingredient Ointment (Zinc Oxide) 1 applic TP DAILY [facility] Last Admin: 06/11/17 10:24 Dose: Not Given Multivitamins/Minerals/Vitamin C (Tab-A-Vit -) 1 tab PO DAILY [facility] Last Admin: 06/11/17 10:18 Dose: 1 tab Non-Formulary Medication (Aa/[place] Connie,[place]hey/Arg/C/Zn/Cu [Lps Critical Care Liquid]) 960 ml PO TID [facility] Non-Formulary Medication (Calcium Alginate [Femi]) 1 each TP DAILY [facility] Non-Formulary Medication (Eyelid Cleanser Combination 5 [Ocusoft Lid Scrub]) 1 each TP DAILY [facility] Pantoprazole Sodium (Protonix -) 40 mg PO DAILY [facility] Last Admin: 06/11/17 10:18 Dose: 40 mg Polyethylene Glycol (Miralax (For Daily Use) -) 17 gm PO DAILY [facility] Last Admin: 06/11/17 10:18 Dose: 17 gm Senna (Senna -) 1 tab PO HS [facility] Last Admin: 06/11/17 22:04 Dose: 1 tab Tamoxifen Citrate (Tamoxifen Citrate) 20 mg PO DAILY [facility] Last Admin: 06/11/17 10:20 Dose: Not Given Zinc Sulfate (Orazinc -) 220 mg PO BID [facility] Last Admin: 06/11/17 22:04 Dose: 220 mg - Objective Vital Signs: Vital Signs Temperature 97.5 F L 06/12/17 07:58 Pulse Rate 67 06/12/17 07:58 Respiratory Rate 20 06/12/17 07:58 Blood Pressure 144/71 06/12/17 07:58 O2 Sat by Pulse Oximetry (%) 99 06/11/17 21:00 Constitutional: Yes: No Distress, Calm Cardiovascular: Yes: S1, S2 Respiratory: Yes: Regular, CTA Bilaterally Gastrointestinal: Yes: Normal Bowel Sounds, Soft Genitourinary: Yes: Chopra Present (suprapubic) Musculoskeletal: Yes: WNL Extremities: Yes: WNL Neurological: Yes: Alert Psychiatric: Yes: Alert Labs: CBC, BMP 06/11/17 07:00 06/11/17 07:00 INR, PTT INR 0.95 (0.82-1.09) 06/09/17 15:15 Assessment/Plan Problem List - Problems (1) UTI (urinary tract infection) Code(s): N39.0 - URINARY TRACT INFECTION, SITE NOT SPECIFIED Qualifiers: Urinary tract infection type: acute cystitis Hematuria presence: without hematuria Qualified Code(s): N30.00 - Acute cystitis without hematuria (2) Breast CA Code(s): C50.919 - MALIGNANT NEOPLASM OF UNSP SITE OF UNSPECIFIED FEMALE BREAST (3) GERD (gastroesophageal reflux disease) Code(s): K21.9 - GASTRO-ESOPHAGEAL REFLUX DISEASE WITHOUT ESOPHAGITIS (4) Hypothyroid Code(s): E03.9 - HYPOTHYROIDISM, UNSPECIFIED (5) Multiple sclerosis Code(s): G35 - MULTIPLE SCLEROSIS (6) Nephrolithiasis Code(s): N20.0 - CALCULUS OF KIDNEY plan continue abx awaiting for repeat cx
[2017-06-12] MEDS: CEFTRIAXONE 1 G/50 ML PREMIX 50 ML IVPB SCH (09:16)
[2017-06-12 09:28] LABS: BASO % 0.4 % (0-2.0); EOS % 1.5 % (0-4.5); HEMATOCRIT 37.4 % (32.4-45.2); HEMOGLOBIN 12.1 GM/dL (10.7-15.3); LYMPH % 39.8 % (8-40); MCH 27.6 pg (25.7-33.7); MCHC 32.3 g/dl (32.0-36.0); MEAN CELL VOLUME 85.5 fl (80-96); MEAN PLT VOLUME 8.7 fl (7.5-11.1); MONO % 5.2 % (3.8-10.2); NEUT % 53.1 % (42.8-82.8); PLATELET COUNT 219 K/MM3 (134-434); RBC 4.37 M/mm3 (3.60-5.2); RDW 15.1 % (11.6-15.6); WHITE BLOOD COUNT 6.7 K/mm3 (4.0-10.0)
[2017-06-12 10:01] LABS: ANION GAP 6 (8-16); BLOOD UREA NITROGEN 10 mg/dL (7-18); CALCIUM 8.5 mg/dL (8.5-10.1); CHLORIDE 109 mmol/L (98-107); CO2 29 mmol/L (21-32); CREATININE 0.4 mg/dL (0.55-1.02); GLUCOSE,RANDOM 86 mg/dL (74-106); POTASSIUM 3.8 mmol/L (3.5-5.1); SODIUM 144 mmol/L (136-145)
[2017-06-12] MEDS: FERROUS SO4 300 MG/5 ML ORAL SOLN UNIT DOSE CUPS PO SCH (10:54)
[2017-06-12] MEDS: LACTOBACILLUS ACIDOPHILUS 1 EACH TAB (FP) PO SCH (10:54)
[2017-06-12] MEDS: ZINC SULFATE 220 MG CAPSULE (FP) PO SCH ×2 (10:54→22:37)
[2017-06-12] MEDS: CHOLECALCIFEROL (VITAMIN D3) 1,000 UNIT TABLET (FP) PO SCH (10:54)
[2017-06-12] MEDS: PANTOPRAZOLE 40 MG TABLET (FP) PO SCH (10:54)
[2017-06-12] MEDS: ASCORBIC ACID 500 MG TABLET (FP) PO SCH (10:54)
[2017-06-12] MEDS: MULTIVITAMINS (DAILY MVI) TABLET (FP) PO SCH (10:54)
[2017-06-12] MEDS: CALCIUM 500MG/VIT-D 200 UNITS COMBO TABLET (FP) PO SCH (10:54)
[2017-06-12] MEDS: POLYETHYLENE GLYCOL 3350 119 GM BTL PO SCH (10:56)
[2017-06-12] MEDS: TAMOXIFEN CITRATE 10 MG TABLET PO SCH (10:57)
[2017-06-12] MEDS: ZINC OXIDE 20% TOPICAL OINTMENT 30 GM TUBE TP SCH (10:58)
[2017-06-12] MEDS ORDERED: PT OWN MED DRAWER 7, Y5N ONE (11:41)
--- NOTE | 2017-06-12 13:18 | PN ---
Progress Note, Physician Chief Complaint: No new complaints History of Present Illness: 66F with a PMH of MS, paraplegia, neuromuscular dysfunction of bladder s/p suprapubic catheter, anemia, UTI, dysphagia, muscle spasm,found to a UTI - Current Medication List Current Medications: Active Medications Acetaminophen (Tylenol -) 650 mg PO Q4H PRN PRN Reason: PAIN OR FEVER Ascorbic Acid (Vitamin C -) 500 mg PO DAILY [facility] Last Admin: 06/12/17 10:54 Dose: 500 mg Calcium Carbonate/Cholecalciferol (Os-Mikie 500+D -) 1 tab PO DAILY [facility] Last Admin: 06/12/17 10:54 Dose: 1 tab Cholecalciferol (Vitamin D3 -) 1,000 unit PO DAILY [facility] Last Admin: 06/12/17 10:54 Dose: 1,000 unit Docusate Sodium (Colace -) 100 mg PO HS [facility] Last Admin: 06/11/17 22:04 Dose: 100 mg Ferrous Sulfate (Feosol) 300 mg PO DAILY [facility] Last Admin: 06/12/17 10:54 Dose: 300 mg Sodium Chloride (Normal Saline -) 1,000 mls @ 42 mls/hr IV ASDIR [facility] Last Admin: 06/11/17 17:42 Dose: 42 mls/hr CEFTRIAXONE 1 G/50 ML PREMIX (Ceftriaxone 1 Gm-D5w Bag) 50 mls @ 100 mls/hr IVPB DAILY [facility] Last Admin: 06/12/17 09:16 Dose: 100 mls/hr Lactobacillus Acidophilus (Bacid -) 1 tab PO DAILY [facility] Last Admin: 06/12/17 10:54 Dose: 1 tab Levothyroxine Sodium (Synthroid -) 100 mcg PO DAILY@0700 [facility] Last Admin: 06/12/17 06:37 Dose: 100 mcg Multi-Ingredient Ointment (Zinc Oxide) 1 applic TP DAILY [facility] Last Admin: 06/12/17 10:58 Dose: 1 applic Multivitamins/Minerals/Vitamin C (Tab-A-Vit -) 1 tab PO DAILY [facility] Last Admin: 06/12/17 10:54 Dose: 1 tab Non-Formulary Medication (Aa/[place] Connie,Whey/Arg/C/Zn/Cu [Lps Critical Care Liquid]) 960 ml PO TID [facility] Non-Formulary Medication (Calcium Alginate [Femi]) 1 each TP DAILY [facility] Non-Formulary Medication (Eyelid Cleanser Combination 5 [Ocusoft Lid Scrub]) 1 each TP DAILY [facility] Pantoprazole Sodium (Protonix -) 40 mg PO DAILY [facility] Last Admin: 06/12/17 10:54 Dose: 40 mg Polyethylene Glycol (Miralax (For Daily Use) -) 17 gm PO DAILY [facility] Last Admin: 06/12/17 10:56 Dose: 17 gm Senna (Senna -) 1 tab PO HS [facility] Last Admin: 06/11/17 22:04 Dose: 1 tab Tamoxifen Citrate (Tamoxifen Citrate) 20 mg PO DAILY [facility] Last Admin: 06/12/17 10:57 Dose: 20 mg Zinc Sulfate (Orazinc -) 220 mg PO BID [facility] Last Admin: 06/12/17 10:54 Dose: 220 mg - Objective Vital Signs: Vital Signs Temperature 97.9 F 06/12/17 10:00 Pulse Rate 69 06/12/17 10:00 Respiratory Rate 18 06/12/17 10:00 Blood Pressure 149/73 06/12/17 10:00 O2 Sat by Pulse Oximetry (%) 99 06/11/17 21:00 Middle aged F oriented to self not in distress HEENT: Mm moist, no anemia, PERRLA EOMI NECK; No JVD No Bruit CHEST: CTA B/L CVS: S1S2 R no m/g/r ABD: suprapubic cathter at place, no distention, non tender Bs + EXT: No edema, contracture 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, no interval changes Labs: CBC, BMP 06/12/17 08:45 06/12/17 08:45 INR, PTT INR 0.95 (0.82-1.09) 06/09/17 15:15 Problem List - Problems (1) UTI (urinary tract infection) Assessment/Plan: On abx so far cultures are negative Code(s): N39.0 - URINARY TRACT INFECTION, SITE NOT SPECIFIED Qualifiers: Urinary tract infection type: acute cystitis Hematuria presence: without hematuria Qualified Code(s): N30.00 - Acute cystitis without hematuria (2) Dehydration Assessment/Plan: IV Hydration F/U BMP Code(s): E86.0 - DEHYDRATION (3) GERD (gastroesophageal reflux disease) Assessment/Plan: On PPI Code(s): K21.9 - GASTRO-ESOPHAGEAL REFLUX DISEASE WITHOUT ESOPHAGITIS (4) Neurogenic bladder Assessment/Plan: S/p Suprapubic catheter Code(s): N31.9 - NEUROMUSCULAR DYSFUNCTION OF BLADDER, UNSPECIFIED (5) Hypothyroid Assessment/Plan: On Levothyroxine Code(s): E03.9 - HYPOTHYROIDISM, UNSPECIFIED (6) Multiple sclerosis Assessment/Plan: chronic with spasticity Code(s): G35 - MULTIPLE SCLEROSIS
[2017-06-12] MEDS: SODIUM CHLORIDE 1,000 ML IV SCH (22:36)
[2017-06-12] MEDS: SENNOSIDES 8.6MG TABLET (FP) PO SCH (22:37)
[2017-06-12] MEDS: DOCUSATE SODIUM 100 MG CAPSULE (FP) PO SCH (22:37)
[2017-06-13] MEDS: LEVOTHYROXINE NA 100 MCG TABLET (FP) PO SCH (06:21)
[2017-06-13 08:46] LABS: BASO % 0.8 % (0-2.0); EOS % 2.1 % (0-4.5); HEMATOCRIT 35.9 % (32.4-45.2); HEMOGLOBIN 11.6 GM/dL (10.7-15.3); MCH 27.5 pg (25.7-33.7); MCHC 32.3 g/dl (32.0-36.0); MEAN CELL VOLUME 85.3 fl (80-96); MEAN PLT VOLUME 9.5 fl (7.5-11.1); MONO % 5.7 % (3.8-10.2); NEUT % 42.4 % (42.8-82.8); PLATELET COUNT 207 K/MM3 (134-434); RBC 4.21 M/mm3 (3.60-5.2); RDW 15.2 % (11.6-15.6); WHITE BLOOD COUNT 6.9 K/mm3 (4.0-10.0)
[2017-06-13 09:04] LABS: CHLORIDE 110 mmol/L (98-107); POTASSIUM 3.8 mmol/L (3.5-5.1); SODIUM 144 mmol/L (136-145)
[2017-06-13 09:18] LABS: ANION GAP 10 (8-16); BLOOD UREA NITROGEN 9 mg/dL (7-18); CALCIUM 8.5 mg/dL (8.5-10.1); CO2 24 mmol/L (21-32); CREATININE 0.3 mg/dL (0.55-1.02); GLUCOSE,RANDOM 81 mg/dL (74-106)
[2017-06-13] MEDS: FERROUS SO4 300 MG/5 ML ORAL SOLN UNIT DOSE CUPS PO SCH (10:37)
[2017-06-13] MEDS: LACTOBACILLUS ACIDOPHILUS 1 EACH TAB (FP) PO SCH (10:38)
[2017-06-13] MEDS: CHOLECALCIFEROL (VITAMIN D3) 1,000 UNIT TABLET (FP) PO SCH (10:38)
[2017-06-13] MEDS: PANTOPRAZOLE 40 MG TABLET (FP) PO SCH (10:38)
[2017-06-13] MEDS: ASCORBIC ACID 500 MG TABLET (FP) PO SCH (10:38)
[2017-06-13] MEDS: CALCIUM 500MG/VIT-D 200 UNITS COMBO TABLET (FP) PO SCH (10:38)
[2017-06-13] MEDS: CEFTRIAXONE 1 G/50 ML PREMIX 50 ML IVPB SCH (10:38)
[2017-06-13] MEDS: MULTIVITAMINS (DAILY MVI) TABLET (FP) PO SCH (10:38)
[2017-06-13] MEDS: ZINC SULFATE 220 MG CAPSULE (FP) PO SCH ×2 (10:38→21:32)
[2017-06-13] MEDS: TAMOXIFEN CITRATE 10 MG TABLET PO SCH (10:39)
[2017-06-13] MEDS: POLYETHYLENE GLYCOL 3350 119 GM BTL PO SCH (10:39)
[2017-06-13] MEDS: ZINC OXIDE 20% TOPICAL OINTMENT 30 GM TUBE TP SCH (11:17)
[2017-06-13] MEDS: CALCIUM ALGINATE TP SCH ×2 (11:20→11:21)
--- NOTE | 2017-06-13 12:31 | PN ---
Progress Note, Physician History of Present Illness: patient stable no complaints family in room - Current Medication List Current Medications: Active Medications Acetaminophen (Tylenol -) 650 mg PO Q4H PRN PRN Reason: PAIN OR FEVER Ascorbic Acid (Vitamin C -) 500 mg PO DAILY [facility] Last Admin: 06/13/17 10:38 Dose: 500 mg Calcium Carbonate/Cholecalciferol (Os-Mikie 500+D -) 1 tab PO DAILY [facility] Last Admin: 06/13/17 10:38 Dose: 1 tab Cholecalciferol (Vitamin D3 -) 1,000 unit PO DAILY [facility] Last Admin: 06/13/17 10:38 Dose: 1,000 unit Docusate Sodium (Colace -) 100 mg PO HS [facility] Last Admin: 06/12/17 22:37 Dose: 100 mg Ferrous Sulfate (Feosol) 300 mg PO DAILY [facility] Last Admin: 06/13/17 10:37 Dose: 300 mg Sodium Chloride (Normal Saline -) 1,000 mls @ 42 mls/hr IV ASDIR [facility] Last Admin: 06/12/17 22:36 Dose: Not Given CEFTRIAXONE 1 G/50 ML PREMIX (Ceftriaxone 1 Gm-D5w Bag) 50 mls @ 100 mls/hr IVPB DAILY [facility] Last Admin: 06/13/17 10:38 Dose: 100 mls/hr Lactobacillus Acidophilus (Bacid -) 1 tab PO DAILY [facility] Last Admin: 06/13/17 10:38 Dose: 1 tab Levothyroxine Sodium (Synthroid -) 100 mcg PO DAILY@0700 [facility] Last Admin: 06/13/17 06:21 Dose: 100 mcg Multi-Ingredient Ointment (Zinc Oxide) 1 applic TP DAILY [facility] Last Admin: 06/13/17 11:17 Dose: 1 applic Multivitamins/Minerals/Vitamin C (Tab-A-Vit -) 1 tab PO DAILY [facility] Last Admin: 06/13/17 10:38 Dose: 1 tab Non-Formulary Medication (Aa/[place] Connie,[place]/Arg/C/Zn/Cu [Lps Critical Care Liquid]) 960 ml PO TID [facility] Non-Formulary Medication (Eyelid Cleanser Combination 5 [Ocusoft Lid Scrub]) 1 each TP DAILY [facility] Pantoprazole Sodium (Protonix -) 40 mg PO DAILY [facility] Last Admin: 06/13/17 10:38 Dose: 40 mg Polyethylene Glycol (Miralax (For Daily Use) -) 17 gm PO DAILY [facility] Last Admin: 06/13/17 10:39 Dose: 17 gm Senna (Senna -) 1 tab PO HS [facility] Last Admin: 06/12/17 22:37 Dose: 1 tab Tamoxifen Citrate (Tamoxifen Citrate) 20 mg PO DAILY [facility] Last Admin: 06/13/17 10:39 Dose: 20 mg Zinc Sulfate (Orazinc -) 220 mg PO BID [facility] Last Admin: 06/13/17 10:38 Dose: 220 mg - Objective Vital Signs: Vital Signs Temperature 98.4 F 06/13/17 10:00 Pulse Rate 61 06/13/17 10:00 Respiratory Rate 18 06/13/17 10:00 Blood Pressure 149/80 06/13/17 10:00 O2 Sat by Pulse Oximetry (%) 99 06/12/17 21:00 Constitutional: Yes: No Distress, Calm Cardiovascular: Yes: S1, S2 Respiratory: Yes: Regular, CTA Bilaterally Gastrointestinal: Yes: Normal Bowel Sounds, Soft Genitourinary: Yes: Chopra Present (suprapubic) Musculoskeletal: Yes: WNL Extremities: Yes: WNL Neurological: Yes: Alert Psychiatric: Yes: Alert Labs: CBC, BMP 06/13/17 07:30 06/13/17 07:30 INR, PTT INR 0.95 (0.82-1.09) 06/09/17 15:15 Assessment/Plan Problem List - Problems (1) UTI (urinary tract infection) Code(s): N39.0 - URINARY TRACT INFECTION, SITE NOT SPECIFIED Qualifiers: Urinary tract infection type: acute cystitis Hematuria presence: without hematuria Qualified Code(s): N30.00 - Acute cystitis without hematuria (2) Breast CA Code(s): C50.919 - MALIGNANT NEOPLASM OF UNSP SITE OF UNSPECIFIED FEMALE BREAST (3) GERD (gastroesophageal reflux disease) Code(s): K21.9 - GASTRO-ESOPHAGEAL REFLUX DISEASE WITHOUT ESOPHAGITIS (4) Hypothyroid Code(s): E03.9 - HYPOTHYROIDISM, UNSPECIFIED (5) Multiple sclerosis Code(s): G35 - MULTIPLE SCLEROSIS (6) Nephrolithiasis Code(s): N20.0 - CALCULUS OF KIDNEY plan continue abx awaiting for repeat cx stable doing well
--- NOTE | 2017-06-13 12:31 | PN ---
Progress Note, Physician Chief Complaint: No new complaints History of Present Illness: 66F with a PMH of MS, paraplegia, neuromuscular dysfunction of bladder s/p suprapubic catheter, anemia, UTI, dysphagia, muscle spasm,found to a UTI - Current Medication List Current Medications: Active Medications Acetaminophen (Tylenol -) 650 mg PO Q4H PRN PRN Reason: PAIN OR FEVER Ascorbic Acid (Vitamin C -) 500 mg PO DAILY [facility] Last Admin: 06/13/17 10:38 Dose: 500 mg Calcium Carbonate/Cholecalciferol (Os-Mikie 500+D -) 1 tab PO DAILY [facility] Last Admin: 06/13/17 10:38 Dose: 1 tab Cholecalciferol (Vitamin D3 -) 1,000 unit PO DAILY [facility] Last Admin: 06/13/17 10:38 Dose: 1,000 unit Docusate Sodium (Colace -) 100 mg PO HS [facility] Last Admin: 06/12/17 22:37 Dose: 100 mg Ferrous Sulfate (Feosol) 300 mg PO DAILY [facility] Last Admin: 06/13/17 10:37 Dose: 300 mg Sodium Chloride (Normal Saline -) 1,000 mls @ 42 mls/hr IV ASDIR [facility]S [facility] Last Admin: 06/12/17 22:36 Dose: Not Given CEFTRIAXONE 1 G/50 ML PREMIX (Ceftriaxone 1 Gm-D5w Bag) 50 mls @ 100 mls/hr IVPB DAILY [facility] Last Admin: 06/13/17 10:38 Dose: 100 mls/hr Lactobacillus Acidophilus (Bacid -) 1 tab PO DAILY [facility] Last Admin: 06/13/17 10:38 Dose: 1 tab Levothyroxine Sodium (Synthroid -) 100 mcg PO DAILY@0700 [facility] Last Admin: 06/13/17 06:21 Dose: 100 mcg Multi-Ingredient Ointment (Zinc Oxide) 1 applic TP DAILY [facility] Last Admin: 06/13/17 11:17 Dose: 1 applic Multivitamins/Minerals/Vitamin C (Tab-A-Vit -) 1 tab PO DAILY [facility] Last Admin: 06/13/17 10:38 Dose: 1 tab Non-Formulary Medication (Aa/[place] Connie,[place]hey/Arg/C/Zn/Cu [Lps Critical Care Liquid]) 960 ml PO TID [facility] Non-Formulary Medication (Eyelid Cleanser Combination 5 [Ocusoft Lid Scrub]) 1 each TP DAILY [facility] Pantoprazole Sodium (Protonix -) 40 mg PO DAILY [facility] Last Admin: 06/13/17 10:38 Dose: 40 mg Polyethylene Glycol (Miralax (For Daily Use) -) 17 gm PO DAILY [facility] Last Admin: 06/13/17 10:39 Dose: 17 gm Senna (Senna -) 1 tab PO HS [facility] Last Admin: 06/12/17 22:37 Dose: 1 tab Tamoxifen Citrate (Tamoxifen Citrate) 20 mg PO DAILY [facility] Last Admin: 06/13/17 10:39 Dose: 20 mg Zinc Sulfate (Orazinc -) 220 mg PO BID [facility] Last Admin: 06/13/17 10:38 Dose: 220 mg - Objective Vital Signs: Vital Signs Temperature 98.4 F 06/13/17 10:00 Pulse Rate 61 06/13/17 10:00 Respiratory Rate 18 06/13/17 10:00 Blood Pressure 149/80 06/13/17 10:00 O2 Sat by Pulse Oximetry (%) 99 06/12/17 21:00 Middle aged F oriented to self not in distress HEENT: Mm moist, no anemia, PERRLA EOMI NECK; No JVD No Bruit CHEST: CTA B/L CVS: S1S2 R no m/g/r ABD: suprapubic catheter at place, no distention, non tender Bs + EXT: No edema, contracture OVERHEAD CLEANER: Oriented to self alert, no interval changes Labs: CBC, BMP 06/13/17 07:30 06/13/17 07:30 INR, PTT INR 0.95 (0.82-1.09) 06/09/17 15:15 Problem List - Problems (1) UTI (urinary tract infection) Assessment/Plan: On abx so far cultures are negative Code(s): N39.0 - URINARY TRACT INFECTION, SITE NOT SPECIFIED Qualifiers: Urinary tract infection type: acute cystitis Hematuria presence: without hematuria Qualified Code(s): N30.00 - Acute cystitis without hematuria (2) Dehydration Assessment/Plan: IV Hydration F/U BMP Code(s): E86.0 - DEHYDRATION (3) GERD (gastroesophageal reflux disease) Assessment/Plan: On PPI Code(s): K21.9 - GASTRO-ESOPHAGEAL REFLUX DISEASE WITHOUT ESOPHAGITIS (4) Neurogenic bladder Assessment/Plan: S/p Suprapubic catheter Code(s): N31.9 - NEUROMUSCULAR DYSFUNCTION OF BLADDER, UNSPECIFIED (5) Hypothyroid Assessment/Plan: On Levothyroxine Code(s): E03.9 - HYPOTHYROIDISM, UNSPECIFIED (6) Multiple sclerosis Assessment/Plan: chronic with spasticity Code(s): G35 - MULTIPLE SCLEROSIS
[2017-06-13] MEDS: SENNOSIDES 8.6MG TABLET (FP) PO SCH (21:32)
[2017-06-13] MEDS: DOCUSATE SODIUM 100 MG CAPSULE (FP) PO SCH (21:32)
[2017-06-13] MEDS: SODIUM CHLORIDE 1,000 ML IV SCH (21:33)
[2017-06-14] MEDS: LEVOTHYROXINE NA 100 MCG TABLET (FP) PO SCH (06:43)
[2017-06-14] MEDS ORDERED: PT OWN MED DRAWER 7, Y5N ONE (07:11)
[2017-06-14] MEDS: MULTIVITAMINS (DAILY MVI) TABLET (FP) PO SCH (11:48)
[2017-06-14] MEDS: TAMOXIFEN CITRATE 10 MG TABLET PO SCH (11:48)
[2017-06-14] MEDS: LACTOBACILLUS ACIDOPHILUS 1 EACH TAB (FP) PO SCH (11:48)
[2017-06-14] MEDS: ASCORBIC ACID 500 MG TABLET (FP) PO SCH (11:48)
[2017-06-14] MEDS: ZINC SULFATE 220 MG CAPSULE (FP) PO SCH (11:48)
[2017-06-14] MEDS: FERROUS SO4 300 MG/5 ML ORAL SOLN UNIT DOSE CUPS PO SCH (11:48)
[2017-06-14] MEDS: CALCIUM 500MG/VIT-D 200 UNITS COMBO TABLET (FP) PO SCH (11:48)
[2017-06-14] MEDS: CHOLECALCIFEROL (VITAMIN D3) 1,000 UNIT TABLET (FP) PO SCH (11:49)
[2017-06-14] MEDS: ZINC OXIDE 20% TOPICAL OINTMENT 30 GM TUBE TP SCH (11:50)
[2017-06-14] MEDS: CEFTRIAXONE 1 G/50 ML PREMIX 50 ML IVPB SCH (11:50)
[2017-06-14] MEDS: PANTOPRAZOLE 40 MG TABLET (FP) PO SCH (11:53)
[2017-06-14] MEDS: POLYETHYLENE GLYCOL 3350 119 GM BTL PO SCH (11:53)
--- NOTE | 2017-06-14 12:02 | PN ---
Progress Note, Physician Chief Complaint: Patient without complaint. No cp, sob, n/v. - Current Medication List Current Medications: Active Medications Acetaminophen (Tylenol -) 650 mg PO Q4H PRN PRN Reason: PAIN OR FEVER Ascorbic Acid (Vitamin C -) 500 mg PO DAILY [facility] Last Admin: 06/14/17 11:48 Dose: 500 mg Calcium Carbonate/Cholecalciferol (Os-Mikie 500+D -) 1 tab PO DAILY [facility] Last Admin: 06/14/17 11:48 Dose: 1 tab Cholecalciferol (Vitamin D3 -) 1,000 unit PO DAILY [facility] Last Admin: 06/14/17 11:49 Dose: 1,000 unit Docusate Sodium (Colace -) 100 mg PO HS [facility] Last Admin: 06/13/17 21:32 Dose: 100 mg Ferrous Sulfate (Feosol) 300 mg PO DAILY [facility] Last Admin: 06/14/17 11:48 Dose: 300 mg Sodium Chloride (Normal Saline -) 1,000 mls @ 42 mls/hr IV ASDIR [facility] Last Admin: 06/13/17 21:33 Dose: 42 mls/hr CEFTRIAXONE 1 G/50 ML PREMIX (Ceftriaxone 1 Gm-D5w Bag) 50 mls @ 100 mls/hr IVPB DAILY [facility] Last Admin: 06/14/17 11:50 Dose: 100 mls/hr Lactobacillus Acidophilus (Bacid -) 1 tab PO DAILY [facility] Last Admin: 06/14/17 11:48 Dose: 1 tab Levothyroxine Sodium (Synthroid -) 100 mcg PO DAILY@0700 [facility] Last Admin: 06/14/17 06:43 Dose: 100 mcg Multi-Ingredient Ointment (Zinc Oxide) 1 applic TP DAILY [facility] Last Admin: 06/14/17 11:50 Dose: 1 applic Multivitamins/Minerals/Vitamin C (Tab-A-Vit -) 1 tab PO DAILY [facility] Last Admin: 06/14/17 11:48 Dose: 1 tab Pantoprazole Sodium (Protonix -) 40 mg PO DAILY [facility] Last Admin: 06/14/17 11:53 Dose: 40 mg Polyethylene Glycol (Miralax (For Daily Use) -) 17 gm PO DAILY [facility] Last Admin: 06/14/17 11:53 Dose: 17 gm Senna (Senna -) 1 tab PO [facility] Last Admin: 06/13/17 21:32 Dose: 1 tab Tamoxifen Citrate (Tamoxifen Citrate) 20 mg PO DAILY [facility] Last Admin: 06/14/17 11:48 Dose: 20 mg Zinc Sulfate (Orazinc -) 220 mg PO BID [facility] Last Admin: 06/14/17 11:48 Dose: 220 mg - Objective Vital Signs: Vital Signs Temperature 36.3 C L 06/14/17 06:20 Pulse Rate 67 06/14/17 06:20 Respiratory Rate 18 06/14/17 06:20 Blood Pressure 131/72 06/14/17 06:20 O2 Sat by Pulse Oximetry (%) 99 06/12/17 21:00 Constitutional: Yes: Well Nourished, No Distress, Calm Cardiovascular: Yes: Regular Rate and Rhythm. No: Gallop, Murmur, Rub Respiratory: Yes: Regular, CTA Bilaterally. No: Rales, Rhonchi, Wheezes Gastrointestinal: Yes: Normal Bowel Sounds, Soft. No: Distention, Tenderness Extremities: Yes: WNL Edema: No Labs: CBC, BMP 06/13/17 07:30 06/13/17 07:30 INR, PTT INR 0.95 (0.82-1.09) 06/09/17 15:15 Problem List - Problems (1) UTI (urinary tract infection) Code(s): N39.0 - URINARY TRACT INFECTION, SITE NOT SPECIFIED Qualifiers: Urinary tract infection type: acute cystitis Hematuria presence: without hematuria Qualified Code(s): N30.00 - Acute cystitis without hematuria (2) Breast CA Code(s): C50.919 - MALIGNANT NEOPLASM OF UNSP SITE OF UNSPECIFIED FEMALE BREAST (3) GERD (gastroesophageal reflux disease) Code(s): K21.9 - GASTRO-ESOPHAGEAL REFLUX DISEASE WITHOUT ESOPHAGITIS (4) Hypothyroid Code(s): E03.9 - HYPOTHYROIDISM, UNSPECIFIED (5) Multiple sclerosis Code(s): G35 - MULTIPLE SCLEROSIS (6) Nephrolithiasis Code(s): N20.0 - CALCULUS OF KIDNEY Assessment/Plan (1) UTI (urinary tract infection) Assessment/Plan: -ID following and note reviewed -urine cultures negative -stop antibiotics after today's dose Code(s): N39.0 - URINARY TRACT INFECTION, SITE NOT SPECIFIED Qualifiers: Urinary tract infection type: acute cystitis Hematuria presence: without hematuria Qualified Code(s): N30.00 - Acute cystitis without hematuria (2) Breast CA Assessment/Plan: -continue tamoxifen Code(s): C50.919 - MALIGNANT NEOPLASM OF UNSP SITE OF UNSPECIFIED FEMALE BREAST (3) GERD (gastroesophageal reflux disease) Assessment/Plan: -continue protonix Code(s): K21.9 - GASTRO-ESOPHAGEAL REFLUX DISEASE WITHOUT ESOPHAGITIS (4) Hypothyroid Assessment/Plan: -continue synthroid Code(s): E03.9 - HYPOTHYROIDISM, UNSPECIFIED (5) Multiple sclerosis Assessment/Plan: -chronic with dementia Code(s): G35 - MULTIPLE SCLEROSIS (6) Nephrolithiasis Assessment/Plan: -chronic -not obstructing Code(s): N20.0 - CALCULUS OF KIDNEY Dispo -plan for discharge tomorrow
--- NOTE | 2017-06-14 13:39 | PN ---
Progress Note, Physician History of Present Illness: patient stable no complaints family in room - Current Medication List Current Medications: Active Medications Acetaminophen (Tylenol -) 650 mg PO Q4H PRN PRN Reason: PAIN OR FEVER Ascorbic Acid (Vitamin C -) 500 mg PO DAILY [facility] Last Admin: 06/14/17 11:48 Dose: 500 mg Calcium Carbonate/Cholecalciferol (Os-Mikie 500+D -) 1 tab PO DAILY [facility] Last Admin: 06/14/17 11:48 Dose: 1 tab Cholecalciferol (Vitamin D3 -) 1,000 unit PO DAILY [facility] Last Admin: 06/14/17 11:49 Dose: 1,000 unit Docusate Sodium (Colace -) 100 mg PO HS [facility] Last Admin: 06/13/17 21:32 Dose: 100 mg Ferrous Sulfate (Feosol) 300 mg PO DAILY [facility] Last Admin: 06/14/17 11:48 Dose: 300 mg Sodium Chloride (Normal Saline -) 1,000 mls @ 42 mls/hr IV ASDIR [facility] Last Admin: 06/13/17 21:33 Dose: 42 mls/hr CEFTRIAXONE 1 G/50 ML PREMIX (Ceftriaxone 1 Gm-D5w Bag) 50 mls @ 100 mls/hr IVPB DAILY [facility] Last Admin: 06/14/17 11:50 Dose: 100 mls/hr Lactobacillus Acidophilus (Bacid -) 1 tab PO DAILY [facility] Last Admin: 06/14/17 11:48 Dose: 1 tab Levothyroxine Sodium (Synthroid -) 100 mcg PO DAILY@0700 [facility] Last Admin: 06/14/17 06:43 Dose: 100 mcg Multi-Ingredient Ointment (Zinc Oxide) 1 applic TP DAILY [facility] Last Admin: 06/14/17 11:50 Dose: 1 applic Multivitamins/Minerals/Vitamin C (Tab-A-Vit -) 1 tab PO DAILY [facility] Last Admin: 06/14/17 11:48 Dose: 1 tab Pantoprazole Sodium (Protonix -) 40 mg PO DAILY [facility] Last Admin: 06/14/17 11:53 Dose: 40 mg Polyethylene Glycol (Miralax (For Daily Use) -) 17 gm PO DAILY [facility] Last Admin: 06/14/17 11:53 Dose: 17 gm Senna (Senna -) 1 tab PO HS [facility] Last Admin: 06/13/17 21:32 Dose: 1 tab Tamoxifen Citrate (Tamoxifen Citrate) 20 mg PO DAILY [facility] Last Admin: 06/14/17 11:48 Dose: 20 mg Zinc Sulfate (Orazinc -) 220 mg PO BID [facility] Last Admin: 06/14/17 11:48 Dose: 220 mg - Objective Vital Signs: Vital Signs Temperature 97.3 F L 06/14/17 06:20 Pulse Rate 67 06/14/17 06:20 Respiratory Rate 18 06/14/17 06:20 Blood Pressure 131/72 06/14/17 06:20 O2 Sat by Pulse Oximetry (%) 99 06/12/17 21:00 Constitutional: Yes: No Distress, Calm Cardiovascular: Yes: S1, S2 Gastrointestinal: Yes: Normal Bowel Sounds, Soft Genitourinary: Yes: Chopra Present Musculoskeletal: Yes: WNL Extremities: Yes: WNL Neurological: Yes: Alert Psychiatric: Yes: Alert Labs: CBC, BMP 06/13/17 07:30 06/13/17 07:30 INR, PTT INR 0.95 (0.82-1.09) 06/09/17 15:15 Assessment/Plan Problem List - Problems (1) UTI (urinary tract infection) Code(s): N39.0 - URINARY TRACT INFECTION, SITE NOT SPECIFIED Qualifiers: Urinary tract infection type: acute cystitis Hematuria presence: without hematuria Qualified Code(s): N30.00 - Acute cystitis without hematuria (2) Breast CA Code(s): C50.919 - MALIGNANT NEOPLASM OF UNSP SITE OF UNSPECIFIED FEMALE BREAST (3) GERD (gastroesophageal reflux disease) Code(s): K21.9 - GASTRO-ESOPHAGEAL REFLUX DISEASE WITHOUT ESOPHAGITIS (4) Hypothyroid Code(s): E03.9 - HYPOTHYROIDISM, UNSPECIFIED (5) Multiple sclerosis Code(s): G35 - MULTIPLE SCLEROSIS (6) Nephrolithiasis Code(s): N20.0 - CALCULUS OF KIDNEY plan continue abx repeat cx negative can stop abx after today rest as per primary team
--- NOTE | 2017-06-14 15:39 | DS ---
Physical Examination Vital Signs: Vital Signs Temperature 36.3 C L 06/14/17 06:20 Pulse Rate 67 06/14/17 06:20 Respiratory Rate 18 06/14/17 06:20 Blood Pressure 131/72 06/14/17 06:20 O2 Sat by Pulse Oximetry (%) 99 06/12/17 21:00 Labs: CBC, BMP 06/13/17 07:30 06/13/17 07:30 Discharge Summary Reason For Visit: UTI Current Active Problems UTI (urinary tract infection) (Acute) Hospital Course: Ms Gerardo is a very pleasant 66 year old female who comes in with concern for UTI. She was admitted the hospital and originally started on broad spectrum antibiotics secondary to history of resistant UTIs in the past. She was seen by ID and changed to rocephin. Urine cultures were sent, the first was contaminated so a second culture was sent. This culture is NGTD. Dr Fuchs evaluated the patient and felt no further antibiotics were needed after today's dose. Patient remained asymptomatic the entire hospital stay. She is safe for discharge back to SNF. 32 minutes spent in preparation of this discharge Condition: Stable - Instructions Diet, Activity, Other Instructions: resume previous diet and activity Referrals: Kamran Cardenas MD [Primary Care Provider] - Disposition: [facility] - Home Medications Comprehensive Discharge Medication List: Ambulatory Orders Acetaminophen 650 mg PO Q4H PRN 03/28/16 Cholecalciferol (Vitamin D3) [Vitamin D3] 1,000 unit PO DAILY 03/28/16 Levothyroxine [Synthroid -] 100 mcg PO DAILY 03/28/16 Multivitamin [Poly-Vitamin] 1 each PO DAILY 03/28/16 Polyethylene Glycol 3350 [Gavilax] 17 gm PO DAILY 03/28/16 Sennosides [Senna] 17.2 mg PO HS 03/28/16 Tamoxifen Citrate 20 mg PO DAILY 03/28/16 Docusate Sodium [Colace -] 100 mg PO HS 06/07/16 Lactobacillus Acidophilus [Bacid -] 1 tab PO DAILY tab 06/11/16 Aa/[place] Connie,[place]/Arg/C/Zn/Cu [Lps Critical Care Liquid] 960 ml PO TID Ascorbic Acid [Vitamin C] 500 mg PO DAILY 06/09/17 Calcium Alginate [Femi] 1 each TP DAILY 06/09/17 Calcium Carbonate/Vitamin D3 [Oyster Shell Calcium-Vit D Tab] 1 each PO DAILY Enoxaparin Sodium 40 mg SQ DAILY 06/09/17 Eyelid Cleanser Combination 5 [Ocusoft Lid Scrub] 1 each TP DAILY 06/09/17 Ferrous Sulfate *Liquid* [Feosol *Liquid*] 300 mg PO DAILY 06/09/17 Interferon Beta-1A/Albumin [Avonex 30 Mcg Vial Kit] 30 mcg IM WEEKLY 06/09/17 Oxycodone HCl 5 mg PO BID 06/09/17 Zinc Oxide 20% Topical Oint 454 gm TD DAILY 06/09/17 Zinc Sulfate 220 mg PO BID 06/09/17
[2017-06-14] MEDS: SODIUM CHLORIDE 1,000 ML IV SCH (15:44)
[2017-06-14 16:05] VITALS: BP 126/78; PULSE 78; TEMP 98.2
== END 2017-06-14 18:25 | DRG 463 ==
LOC: JER 13:10 → JERBED 16:38 → J8W 06-10 14:01
PROVIDERS: ADMIT Internal Medicine; ATTEND Internal Medicine
DX: N39.0 Urinary tract infection, site not specified (principal); K21.9 Gastro-esophageal reflux disease without esophagitis; E03.9 Hypothyroidism, unspecified; G35 Multiple sclerosis; N20.0 Calculus of kidney; Z85.3 Personal history of malignant neoplasm of breast; E86.0 Dehydration; N31.9 Neuromuscular dysfunction of bladder, unspecified; R31.9 Hematuria, unspecified; C50.919 Malignant neoplasm of unspecified site of unspecified female breast; G82.20 Paraplegia, unspecified; R13.10 Dysphagia, unspecified
CPT/HCPCS: 36415; 76775-TC; 76856-TC; 80048; 80053; 81003; 81015; 83735; 84100; 85025; 85610; 85730; 86850; 86900; 86901; 87086; 97161-GP; 99285-25

== ENCOUNTER 2018-02-13 22:45 | Inpatient (IN) | payer OTHER ==
--- NOTE | 2018-02-14 01:18 | PDOC ---
Attending Attestation - HPI HPI: 02/14/18 01:34 The patient is a 67 year old female, with a significant past medical history of MS, paraplegia, neuromuscular dysfunction of bladder, anemia, recurrent UTI, dysphagia, muscle spasm, MRSA, who presents to the emergency department via EMS from [facility] with, 8 hours of urinary retention. As per EMS, the intermediate has been unable to obtain urine from the patient for the past 8 hours. - Physicial Exam PE: 02/14/18 01:40 GENERAL: Febrile. No apparent distress. HEENT: Normocephalic, atraumatic. PERRL, EOM intact. CARDIOVASCULAR: Tachycardic. No murmur or rubs. PULMONARY: Clear to auscultation bilaterally. ABDOMEN: Distended. Soft, non-tender. EXTREMITIES: Paraplegic. SKIN: Warm to touch. Dry. NEUROLOGICAL: Alert. <January Chowdhury - Last Filed: 02/14/18 01:40> - Resident Resident Name: Art Saini - ED Attending Attestation I have performed the following: I have examined & evaluated the patient, The case was reviewed & discussed with the resident, I agree w/resident's findings & plan, Exceptions are as noted - Medical Decision Making 02/15/18 03:00 abd pain /ct scan /signed oput to Dr Wesley <Sadaf Shore - Last Filed: 02/15/18 03:01> Attestations - Attestations 02/14/18 01:34 Documentation prepared by January Chowdhury, acting as medical record librarian for Sadaf Shore MD. <January Chowdhury - Last Filed: 02/14/18 01:40>
--- NOTE | 2018-02-14 01:21 | PDOC ---
History of Present Illness - General Chief Complaint: Urinary Problem Stated Complaint: NO URINE OUTPUT Time Seen by Provider: 02/13/18 23:39 History Source: Skilled Nursing Records, Old Records Exam Limitations: Unresponsive - History of Present Illness Initial Comments: 02/14/18 01:44 Ms. Gerardo is a 67 yo F with a hx of multiple sclerosis, neurogenic bladder, hypothyroidism, and paraplegia presents to the emergency department from her custodial [facility] for no urinary output for 8 hours. The patient is unable to speak logically and thus makes the HPI limited. From her chart, her vitals were within normal limits at [facility]. ROS limited. Past History - Past Medical History Allergies/Adverse Reactions: Allergies Allergy/AdvReac Type Severity Reaction Status Date / Time No Known Allergies Allergy Verified 02/13/18 23:08 Home Medications: Ambulatory Orders Acetaminophen 650 mg PO Q4H PRN 03/28/16 Cholecalciferol (Vitamin D3) [Vitamin D3] 1,000 unit PO DAILY 03/28/16 Levothyroxine [Synthroid -] 100 mcg PO DAILY 03/28/16 Multivitamin [Poly-Vitamin] 1 each PO DAILY 03/28/16 Polyethylene Glycol 3350 [Gavilax] 17 gm PO DAILY 03/28/16 Sennosides [Senna] 17.2 mg PO HS 03/28/16 Tamoxifen Citrate 20 mg PO DAILY 03/28/16 Docusate Sodium [Colace -] 100 mg PO HS 06/07/16 Lactobacillus Acidophilus [Bacid -] 1 tab PO DAILY tab 06/11/16 Ascorbic Acid [Vitamin C] 500 mg PO DAILY 06/09/17 Enoxaparin Sodium 40 mg SQ DAILY 06/09/17 Ferrous Sulfate *Liquid* [Feosol *Liquid*] 300 mg PO DAILY 06/09/17 Zinc Sulfate 220 mg PO BID 06/09/17 Calcium Carbonate/Vitamin D3 [Oyster Shell 500-Vit D3 200 Tb] 1 each PO DAILY Ceftriaxone 1 gm/D5w [Rocephin 1 gm Premix Ivpb -] 1 gm IV DAILY 02/13/18 Interferon Beta-1A [Avonex] 30 mcg IM WEEKLY 02/13/18 Pantoprazole Sodium 40 mg PO DAILY 02/13/18 Silver Sulfadiazine 1% Top Cr [Silvadene -] 1 applic TP DAILY 02/13/18 Anemia: Yes Asthma: No Cancer: Yes (breast) Cardiac Disorders: No CVA: No COPD: No CHF: No Dementia: Yes Diabetes: No GI Disorders: Yes (constipation, gerd) Disorders: Yes (NEUROGENIC BLADER, UTI) HTN: No Hypercholesterolemia: No Liver Disease: No Psychiatric Problems: Yes Seizures: Yes Thyroid Disease: Yes - Surgical History Abdominal Surgery: No Appendectomy: No Cardiac Surgery: No Cholecystectomy: No Lung Surgery: No Neurologic Surgery: No Orthopedic Surgery: No - Immunization History Immunization Up to Date: Yes - Suicide/Smoking/Psychosocial Hx Smoking Status: No Smoking History: Unknown if ever smoked Have you smoked in the past 12 months: No Number of Cigarettes Smoked Daily: 0 Information on smoking cessation initiated: No 'Breaking Loose' booklet given: 06/08/16 Hx Alcohol Use: No Drug/Substance Use Hx: No Substance Use Type: None Hx Substance Use Treatment: No Review of Systems - Review of Systems Able to Perform ROS?: No (Not communicating) *Physical Exam - Vital Signs Last Vital Signs Temp Pulse Resp BP Pulse Ox 99.0 F 88 18 118/56 95 02/13/18 23:09 02/13/18 23:09 02/13/18 23:09 02/13/18 23:09 02/13/18 23:09 - Physical Exam Comments: 02/14/18 01:48 Technically difficult physical exam as the patient was unable to communicate General Appearance: Yes: Nourished, Appropriately Dressed HEENT: positive: EOMI, KEVIN Neck: positive: Trachea midline. negative: Lymphadenopathy (R), Lymphadenopathy (L) Respiratory/Chest: positive: Lungs Clear, Normal Breath Sounds. negative: Respiratory Distress, Accessory Muscle Use Cardiovascular: positive: Regular Rhythm, Regular Rate, S1, S2, Systolic Murmur (grade 1) Vascular Pulses: Dorsalis-Pedis (R): 3+, Doralis-Pedis (L): 3+ Gastrointestinal/Abdominal: positive: Normal Bowel Sounds Musculoskeletal: positive: Normal Inspection Extremity: positive: Normal Capillary Refill, Normal Inspection, Normal Range of Motion, Other (decubital ulcers) Integumentary: positive: Normal Color, Dry, Warm Neurologic: positive: Alert. negative: Fully Oriented, Normal Mood/Affect ED Treatment Course - LABORATORY CBC & Chemistry Diagram: 02/14/18 01:30 02/14/18 01:30 - RADIOLOGY Radiology Studies Ordered: Category Date Time Status KIDNEY / RENAL US [US] Stat Ultrasound 02/14/18 01:16 Ordered Medical Decision Making - Medical Decision Making 02/14/18 05:19 67 yo F with hx of MS and neurogenic bladder presents to the ED from [facility] with no urinary output for 8 hrs prior to presentation. Initial vitals: Initial Vital Signs Temp Pulse Resp BP Pulse Ox 99.0 F 88 18 118/56 95 02/13/18 23:09 02/13/18 23:09 02/13/18 23:09 02/13/18 23:09 02/13/18 23:09 ddx: nephrolithiasis, urinary catheter blockage, sepsis 2/2 urosepsis. Work up: Laboratory Tests 02/14/18 02/14/18 02/14/18 01:30 01:30 04:00 WBC 8.9 RBC 3.98 Hgb 11.4 Hct 34.3 MCV 86.3 MCH 28.6 MCHC 33.1 RDW 14.7 Plt Count 313 D MPV 8.6 Absolute Neuts (auto) 6.3 Neutrophils % 71.3 D Lymphocytes % 20.6 D Monocytes % 6.1 Eosinophils % 1.3 Basophils % 0.7 Nucleated RBC % 0 PT with INR 11.10 INR 0.98 PTT (Actin FS) 27.3 VBG pH POC VBG pCO2 POC VBG pO2 Mixed VBG HCO3 Sodium 136 Potassium 4.1 Chloride 101 Carbon Dioxide 27 Anion Gap 8 BUN 25 H Creatinine 0.6 Creat Clearance w eGFR > 60 Random Glucose 147 H Lactic Acid Calcium 8.9 Total Bilirubin 0.2 AST 15 ALT 17 Alkaline Phosphatase 64 Troponin I Total Protein 7.4 Albumin 2.9 L 02/14/18 02/14/18 02/14/18 04:00 04:00 04:00 WBC RBC Hgb Hct MCV MCH MCHC RDW Plt Count MPV Absolute Neuts (auto) Neutrophils % Lymphocytes % Monocytes % Eosinophils % Basophils % Nucleated RBC % PT with INR INR PTT (Actin FS) VBG pH 7.41 POC VBG pCO2 46.8 D POC VBG pO2 32.4 D Mixed VBG HCO3 28.7 H Sodium Potassium Chloride Carbon Dioxide Anion Gap BUN Creatinine Creat Clearance w eGFR Random Glucose Lactic Acid 1.6 Calcium Total Bilirubin AST ALT Alkaline Phosphatase Troponin I < 0.02 Total Protein Albumin Work up showed cbc within normal limits. right kidney atrophic measuring 8.3 x 4 x 4.8 cm with multiple right renal stones with the largest measuring 2.8 cm. No right hydronephrosis noted. left kidney has no stones or hydronephrosis. urinary bladder stone noted. rectal temperature was taken and found to be 101F. Started sepsis work up and provided 1 L NS. ordered abdomen pelvis CT with IV contrast. Transferred care to Dr. Hinson. *DC/Admit/Observation/Transfer Diagnosis at time of Disposition: Fever Qualifiers: Fever type: unspecified Qualified Code(s): R50.9 - Fever, unspecified Suprapubic catheter dysfunction Qualifiers: Encounter type: initial encounter Qualified Code(s): T83.010A - Breakdown ( mechanical) of cystostomy catheter, initial encounter - Referrals Referrals: Kamran Cardenas MD [Primary Care Provider] - - Patient Instructions - Post Discharge Activity
[2018-02-14] MEDS ORDERED: SODIUM CHLORIDE 1,000 ML IV STA (01:31)
[2018-02-14 01:44] LABS: BASO % 0.7 % (0-2.0); EOS % 1.3 % (0-4.5); HEMATOCRIT 34.3 % (32.4-45.2); HEMOGLOBIN 11.4 GM/dL (10.7-15.3); LYMPH % 20.6 % (8-40); MCH 28.6 pg (25.7-33.7); MCHC 33.1 g/dl (32.0-36.0); MEAN CELL VOLUME 86.3 fl (80-96); MEAN PLT VOLUME 8.6 fl (7.5-11.1); MONO % 6.1 % (3.8-10.2); NEUT % 71.3 % (42.8-82.8); PLATELET COUNT 313 K/MM3 (134-434); RBC 3.98 M/mm3 (3.60-5.2); RDW 14.7 % (11.6-15.6); WHITE BLOOD COUNT 8.9 K/mm3 (4.0-10.0)
[2018-02-14 02:05] LABS: ALBUMIN 2.9 g/dl (3.4-5.0); ANION GAP 8 MMOL/L (8-16); BILIRUBIN,TOTAL 0.2 mg/dL (0.2-1); BLOOD UREA NITROGEN 25 mg/dL (7-18); CALCIUM 8.9 mg/dL (8.5-10.1); CHLORIDE 101 mmol/L (98-107); CO2 27 mmol/L (21-32); CREATININE 0.6 mg/dL (0.55-1.3); GLUCOSE,RANDOM 147 mg/dL (74-106); POTASSIUM 4.1 mmol/L (3.5-5.1); SGOT/AST 15 U/L (15-37); SGPT/ALT 17 U/L (13-61); SODIUM 136 mmol/L (136-145); TOT PROT 7.4 g/dl (6.4-8.2)
[2018-02-14 02:06] LABS: ALK PHOS 64 U/L (45-117)
[2018-02-14 04:13] LABS: VENOUS PC02 46.8 mmHg (38-52); VENOUS PH 7.41 (7.32-7.42); VENOUS PO2 32.4 mmHg (28-48)
[2018-02-14 04:28] LABS: INR 0.98 (0.83-1.09); PROTHROMBIN TIME (PATIENT) 11.1 SEC (9.7-13.0)
[2018-02-14 04:31] LABS: ACTIVATED PTT 27.3 SECONDS (25.2-36.5)
[2018-02-14] MEDS ORDERED: VANCOMYCIN 1,000 MG in DEXTROSE 5%-WATER - 250 ML IVPB ONE (07:03)
[2018-02-14] MEDS ORDERED: PIPERACILLIN/TAZOB 3.375 GM 3.375 GM in DEXTROSE 5%-WATER - 50 ML IVPB ONE (07:04)
[2018-02-14] MEDS ORDERED: PIPERACILLIN/TAZOB 3.375 GM 3.375 GM/50 ML BAG IVPB ONE (07:20)
[2018-02-14] MEDS ORDERED: VANCOMYCIN 1 GRAM (PRE-DOCKED) 1,000 MG/250 ML BAG IVPB ONE (08:27)
--- NOTE | 2018-02-14 10:14 | HP ---
Admitting History and Physical - Primary Care Physician PCP: Kamran Cardenas - Admission Chief Complaint: anuria History of Present Illness: is a pleasant 67 year old female who was sent over from [facility] for acute urinary retention. Per records, there has been no urine outpt via suprapubic catheter for 8 hours.Pt was on ceftriaxone x 5 days at SNF. Pt unable to provide history due to dementia. When asked how she feels, she reports feeling well, denies any chest discomfort, sob, abdominal pain. In the ED, pt noted to be febrile to temp 101.5f. CT abd/pelvis reveals right nephrolithiasis w/ mild hydronephrosis, inflammatory changes, suprapubic catheter w/ thickened and irregular bladder containing multiple calculi, fecal impaction. History Source: Patient, Medical Record Limitations to Obtaining History: Dementia - Past Medical History [employer] WORK[employer]: Yes: Dementia, Multiple Sclerosis Gastrointestinal: Yes: GERD Renal/: Yes: Neurogenic Bladder, Renal Calculi, UTI Infectious Disease: Yes: MRSA Rheumatology: Yes: Other (multiple sclerosis) Endocrine: Yes: Hypothyroidism - Past Surgical History Past Surgical History: Yes: Mastectomy - Smoking History Smoking history: Unknown if ever smoked Have you smoked in the past 12 months: No Aproximately how many cigarettes per day: 0 - Alcohol/Substance Use Hx Alcohol Use: No History of Substance Use: reports: None - Social History Usual Living Arrangement: Yes: Care Home ADL: Support Services History of Recent Travel: No Home Medications - Allergies Allergies/Adverse Reactions: Allergies Allergy/AdvReac Type Severity Reaction Status Date / Time No Known Allergies Allergy Verified 02/13/18 23:08 - Home Medications Home Medications: Ambulatory Orders Acetaminophen 650 mg PO Q4H PRN 03/28/16 Cholecalciferol (Vitamin D3) [Vitamin D3] 1,000 unit PO DAILY 03/28/16 Levothyroxine [Synthroid -] 100 mcg PO DAILY 03/28/16 Multivitamin [Poly-Vitamin] 1 each PO DAILY 03/28/16 Polyethylene Glycol 3350 [Gavilax] 17 gm PO DAILY 03/28/16 Sennosides [Senna] 17.2 mg PO HS 03/28/16 Tamoxifen Citrate 20 mg PO DAILY 03/28/16 Docusate Sodium [Colace -] 100 mg PO HS 06/07/16 Lactobacillus Acidophilus [Bacid -] 1 tab PO DAILY tab 06/11/16 Ascorbic Acid [Vitamin C] 500 mg PO DAILY 06/09/17 Enoxaparin Sodium 40 mg SQ DAILY 06/09/17 Ferrous Sulfate *Liquid* [Feosol *Liquid*] 300 mg PO DAILY 06/09/17 Zinc Sulfate 220 mg PO BID 06/09/17 Calcium Carbonate/Vitamin D3 [Oyster Shell 500-Vit D3 200 Tb] 1 each PO DAILY Ceftriaxone 1 gm/D5w [Rocephin 1 gm Premix Ivpb -] 1 gm IV DAILY 02/13/18 Interferon Beta-1A [Avonex] 30 mcg IM WEEKLY 02/13/18 Pantoprazole Sodium 40 mg PO DAILY 02/13/18 Silver Sulfadiazine 1% Top Cr [Silvadene -] 1 applic TP DAILY 02/13/18 Family Disease History - Family Disease History Family History: Unable to Obtain Review of Systems Unable to obtain ROS, reason: due to dementia Physical Examination Vital Signs: Vital Signs Temperature 98.5 F 02/14/18 06:35 Pulse Rate 89 02/14/18 06:35 Respiratory Rate 19 02/14/18 06:35 Blood Pressure 122/74 02/14/18 06:35 O2 Sat by Pulse Oximetry (%) 99 02/14/18 06:35 Constitutional: Yes: Well Nourished, No Distress, Calm Cardiovascular: Yes: WNL, Regular Rate and Rhythm. No: Murmur, Rub Respiratory: Yes: WNL, Regular, CTA Bilaterally. No: Accessory Muscle Use, Rales, Rhonchi, SOB, Tachypnea, Wheezes Gastrointestinal: Yes: Normal Bowel Sounds, Distention (mild). No: Tenderness, Tenderness, Rebound, Vomiting Renal/: Yes: Bladder Distention, Other (suprapubic catheter in place) Edema: No Neurological: Yes: Alert, Confusion Psychiatric: Yes: Alert Labs: CBC, BMP 02/14/18 01:30 02/14/18 01:30 Problem List - Problems (1) Suprapubic catheter dysfunction Assessment/Plan: presents without urine output, suspect 2/2 obstruction/calculi +bladder distention CT- right nephrolithiasis w/ mild hydronephrosis, inflammatory changes, suprapubic catheter w/ thickened and irregular bladder containing multiple calculi, fecal impaction enema x1- relieve impaction urology consulted Code(s): T83.010A - BREAKDOWN (MECHANICAL) OF CYSTOSTOMY CATHETER, INIT ENCNTR Qualifiers: Encounter type: initial encounter Qualified Code(s): T83.010A - Breakdown ( mechanical) of cystostomy catheter, initial encounter (2) Fever Assessment/Plan: febrile 101.5f, wbcs wnl suspect 2/2 uti/nephrolithiasis pt w/ hx of prev resistant utis/mrsa zosyn, vanco x 1 ID consulted Code(s): R50.9 - FEVER, UNSPECIFIED Qualifiers: Fever type: due to other condition Qualified Code(s): R50.81 - Fever presenting with conditions classified elsewhere (3) Fecal impaction Assessment/Plan: CT- large fecal impaction enema x 1 colace, miralax, senna monitor Code(s): K56.41 - FECAL IMPACTION (4) Dehydration Assessment/Plan: mild IVF encourage po monitor Code(s): E86.0 - DEHYDRATION (5) Nephrolithiasis Assessment/Plan: as above Code(s): N20.0 - CALCULUS OF KIDNEY (6) Neurogenic bladder Assessment/Plan: s/p suprapubic catheter Code(s): N31.9 - NEUROMUSCULAR DYSFUNCTION OF BLADDER, UNSPECIFIED (7) Hypothyroid Assessment/Plan: stable continue synthroid Code(s): E03.9 - HYPOTHYROIDISM, UNSPECIFIED (8) GERD (gastroesophageal reflux disease) Assessment/Plan: stable continue protonix Code(s): K21.9 - GASTRO-ESOPHAGEAL REFLUX DISEASE WITHOUT ESOPHAGITIS Qualifiers: Esophagitis presence: without esophagitis Qualified Code(s): K21.9 - Gastro -esophageal reflux disease without esophagitis (9) Breast CA Assessment/Plan: continue tamoxifen Code(s): C50.919 - MALIGNANT NEOPLASM OF UNSP SITE OF UNSPECIFIED FEMALE BREAST (10) Multiple sclerosis Assessment/Plan: chronic, w/ dementia, neurogenic bladder Code(s): G35 - MULTIPLE SCLEROSIS
--- NOTE | 2018-02-14 11:02 | PDOC ---
*Physical Exam - Vital Signs Last Vital Signs Temp Pulse Resp BP Pulse Ox 98.5 F 89 19 122/74 99 02/14/18 06:35 02/14/18 06:35 02/14/18 06:35 02/14/18 06:35 02/14/18 06:35 ED Treatment Course - LABORATORY CBC & Chemistry Diagram: 02/14/18 01:30 02/14/18 01:30 - ADDITIONAL ORDERS Additional order review: Laboratory Results 02/14/18 01:30 Sodium 136 Potassium 4.1 Chloride 101 Carbon Dioxide 27 Anion Gap 8 BUN 25 H Creatinine 0.6 Creat Clearance w eGFR > 60 Random Glucose 147 H Calcium 8.9 Total Bilirubin 0.2 AST 15 ALT 17 Alkaline Phosphatase 64 Total Protein 7.4 Albumin 2.9 L 02/14/18 01:30 RBC 3.98 MCV 86.3 MCHC 33.1 RDW 14.7 MPV 8.6 Neutrophils % 71.3 D Lymphocytes % 20.6 D Monocytes % 6.1 Eosinophils % 1.3 Basophils % 0.7 - Medications Given in the ED: ED Medications Discontinued Medications Generic Name Dose Route Start Last Admin Trade Name Freq PRN Reason Stop Dose Admin Sodium Chloride 1,000 mls @ 1,000 mls/hr 02/14/18 01:31 02/14/18 04:26 Normal Saline - IV 02/14/18 02:30 1,000 mls/hr ASDIR STA Administration Vancomycin HCl 1,000 mg/ 250 mls @ 166.667 mls/hr 02/14/18 07:03 02/14/18 08: 23 Dextrose IVPB 02/14/18 08:32 166.667 mls/hr ONCE ONE Administration Protocol Piperacillin Sod/Tazobactam 50 mls @ 100 mls/hr 02/14/18 07:04 02/14/18 07:21 Sod 3.375 gm/ Dextrose IVPB 02/14/18 07:33 100 mls/hr ONCE ONE Administration Protocol Medical Decision Making - Medical Decision Making 67 year old female with history of paraplegia and spc in place presenting with anuria from the spc, fever, and CT demonstrating right renal calculi along with bladder calculi likely obstructing the catheter entrance site. Admitted for urology consult to Dr. Ho. 02/14/18 10:59 *DC/Admit/Observation/Transfer Diagnosis at time of Disposition: Nephrolithiasis, Bladder calculi Fever Qualifiers: Fever type: unspecified Qualified Code(s): R50.9 - Fever, unspecified Suprapubic catheter dysfunction Qualifiers: Encounter type: initial encounter Qualified Code(s): T83.010A - Breakdown ( mechanical) of cystostomy catheter, initial encounter - Discharge Dispostion Condition at time of disposition: Stable Decision to Admit order: Yes - Referrals - Patient Instructions - Post Discharge Activity
[2018-02-14] MEDS: SODIUM CHLORIDE 1,000 ML IV SCH (13:45)
[2018-02-14] MEDS: POLYETHYLENE GLYCOL 3350 119 GM BTL PO SCH ×2 (13:45→22:54)
--- NOTE | 2018-02-14 14:57 | CON.ID ---
Consult Consult Specialty:: infectious diseases Reason for Consultation:: uti - History of Present Illness Chief Complaint: urinary retention History of Present Illness: 67 year old female who was sent over from [facility] for acute urinary retention. Per records, there has been no urine outpt via suprapubic catheter for couple of houra .Pt was on ceftriaxone x 5 days at [facility]. Pt unable to provide history due to dementia. When asked how she feels, she reports feeling well, denies any chest discomfort, sob, abdominal pain. In the ED, pt noted to be febrile to temp 101.5f. CT abd/pelvis reveals right nephrolithiasis w/ mild hydronephrosis , inflammatory changes, suprapubic catheter w/ thickened and irregular bladder containing multiple calculi, fecal impaction. - History Source History Provided By: Medical Record Limitations to Obtaining History: Dementia - Past Medical History [employer] T[employer]: Yes: Dementia, Multiple Sclerosis Gastrointestinal: Yes: GERD Renal/: Yes: Neurogenic Bladder, Renal Calculi, UTI Infectious Disease: Yes: MRSA Rheumatology: Yes: Other (multiple sclerosis) Endocrine: Yes: Hypothyroidism - Past Surgical History Past Surgical History: Yes: Mastectomy - Alcohol/Substance Use Hx Alcohol Use: No History of Substance Use: reports: None - Smoking History Smoking history: Unknown if ever smoked Have you smoked in the past 12 months: No Aproximately how many cigarettes per day: 0 - Social History ADL: Support Services History of Recent Travel: No Home Medications - Allergies Allergies/Adverse Reactions: Allergies Allergy/AdvReac Type Severity Reaction Status Date / Time No Known Allergies Allergy Verified 02/13/18 23:08 - Home Medications Home Medications: Ambulatory Orders Acetaminophen 650 mg PO Q4H PRN 03/28/16 Cholecalciferol (Vitamin D3) [Vitamin D3] 1,000 unit PO DAILY 03/28/16 Levothyroxine [Synthroid -] 100 mcg PO DAILY 03/28/16 Multivitamin [Poly-Vitamin] 1 each PO DAILY 03/28/16 Polyethylene Glycol 3350 [Gavilax] 17 gm PO DAILY 03/28/16 Sennosides [Senna] 17.2 mg PO HS 03/28/16 Tamoxifen Citrate 20 mg PO DAILY 03/28/16 Docusate Sodium [Colace -] 100 mg PO HS 06/07/16 Lactobacillus Acidophilus [Bacid -] 1 tab PO DAILY tab 01/13/17 Ascorbic Acid [Vitamin C] 500 mg PO DAILY 06/09/17 Enoxaparin Sodium 40 mg SQ DAILY 06/09/17 Ferrous Sulfate *Liquid* [Feosol *Liquid*] 300 mg PO DAILY 06/09/17 Zinc Sulfate 220 mg PO BID 06/09/17 Calcium Carbonate/Vitamin D3 [Oyster Shell 500-Vit D3 200 Tb] 1 each PO DAILY Ceftriaxone 1 gm/D5w [Rocephin 1 gm Premix Ivpb -] 1 gm IV DAILY 02/13/18 Interferon Beta-1A [Avonex] 30 mcg IM WEEKLY 02/13/18 Pantoprazole Sodium 40 mg PO DAILY 02/13/18 Silver Sulfadiazine 1% Top Cr [Silvadene -] 1 applic TP DAILY 02/13/18 Review of Systems - Review of Systems Constitutional: reports: No Symptoms Eyes: reports: No Symptoms HENT: reports: No Symptoms Neck: reports: No Symptoms Cardiovascular: reports: No Symptoms Respiratory: reports: No Symptoms Gastrointestinal: reports: No Symptoms Genitourinary: reports: Other (urinary retention) Physical Exam Vital Signs: Vital Signs Temperature 97.7 F 02/14/18 14:34 Pulse Rate 82 02/14/18 14:34 Respiratory Rate 18 02/14/18 14:34 Blood Pressure 125/85 02/14/18 14:34 O2 Sat by Pulse Oximetry (%) 97 02/14/18 11:21 Constitutional: Yes: Well Nourished, No Distress, Calm Cardiovascular: Yes: Regular Rate and Rhythm Respiratory: Yes: Regular, CTA Bilaterally Gastrointestinal: Yes: Normal Bowel Sounds, Soft Renal/: Yes: Chopra Present (suprapubic with some discharge aroud the catheter site) Musculoskeletal: Yes: WNL Extremities: Yes: WNL Neurological: Yes: Alert, Other Psychiatric: Yes: Alert Labs: CBC, BMP 02/14/18 01:30 02/14/18 01:30 Imaging - Results Chest X-ray: Report Reviewed, Image Reviewed X-ray: Report Reviewed, Image Reviewed Cat Scan: Report Reviewed, Image Reviewed Ultrasound: Report Reviewed, Image Reviewed Assessment/Plan Problem List - Problems (1) Suprapubic catheter dysfunction Code(s): T83.010A - BREAKDOWN (MECHANICAL) OF CYSTOSTOMY CATHETER, INIT ENCNTR Qualifiers: Encounter type: initial encounter Qualified Code(s): T83.010A - Breakdown ( mechanical) of cystostomy catheter, initial encounter (2) Fever Code(s): R50.9 - FEVER, UNSPECIFIED Qualifiers: Fever type: due to other condition Qualified Code(s): R50.81 - Fever presenting with conditions classified elsewhere (3) Fecal impaction Code(s): K56.41 - FECAL IMPACTION (4) Dehydration Code(s): E86.0 - DEHYDRATION (5) Nephrolithiasis Code(s): N20.0 - CALCULUS OF KIDNEY (6) Neurogenic bladder Code(s): N31.9 - NEUROMUSCULAR DYSFUNCTION OF BLADDER, UNSPECIFIED (7) Hypothyroid Code(s): E03.9 - HYPOTHYROIDISM, UNSPECIFIED (8) GERD (gastroesophageal reflux disease) Code(s): K21.9 - GASTRO-ESOPHAGEAL REFLUX DISEASE WITHOUT ESOPHAGITIS Qualifiers: Esophagitis presence: without esophagitis Qualified Code(s): K21.9 - Gastro -esophageal reflux disease without esophagitis (9) Breast CA Code(s): C50.919 - MALIGNANT NEOPLASM OF UNSP SITE OF UNSPECIFIED FEMALE BREAST (10) Multiple sclerosis Code(s): G35 - MULTIPLE SCLEROSIS plan will switch abx to zosyn await for all cx reports urology to see the patient rest as per the team
[2018-02-14] MEDS: PANTOPRAZOLE 40 MG TABLET (FP) PO SCH (15:18)
--- NOTE | 2018-02-14 16:19 | EKG ---
Test Reason : Blood Pressure : / mmHG Vent. Rate : 094 BPM Atrial Rate : 094 BPM P-R Int : 156 ms QRS Dur : 074 ms QT Int : 360 ms P-R-T Axes : 041 -12 009 degrees QTc Int : 450 ms NORMAL SINUS RHYTHM POSSIBLE LEFT ATRIAL ENLARGEMENT INFERIOR INFARCT (CITED ON OR BEFORE 19-SEP-2015) ABNORMAL ECG WHEN COMPARED WITH ECG OF 07-JUN-2016 19:31, NO SIGNIFICANT CHANGE WAS FOUND Confirmed by Navin Man ([id number]) on 02/14/2018 4:18:30 PM Referred By: Confirmed By:Navin Man
[2018-02-14] MEDS ORDERED: PIPERACILLIN/TAZOBACTAM 3.375 GM VIAL IVPB ONE (18:01)
[2018-02-14] MEDS ORDERED: DEXTROSE 5%-WATER - 50 ML IVPB ONE (18:01)
[2018-02-14] MEDS: PIPERACILLIN/TAZOB 3.375 GM 3.375 GM in DEXTROSE 5%-WATER - 50 ML IVPB SCH (18:15)
[2018-02-14] MEDS: TAMOXIFEN CITRATE 10 MG TABLET PO SCH (18:16)
[2018-02-14] MEDS ORDERED: SENNOSIDES 8.6MG TABLET (FP) PO SCH (22:00)
[2018-02-14] MEDS: SENNOSIDES 8.6MG TABLET (FP) PO SCH (22:54)
[2018-02-15] MEDS ORDERED: PIPERACILLIN/TAZOBACTAM 3.375 GM VIAL IVPB ONE ×3 (00:52→17:22)
[2018-02-15] MEDS ORDERED: DEXTROSE 5%-WATER - 50 ML IVPB ONE ×3 (00:52→17:22)
[2018-02-15] MEDS: SODIUM CHLORIDE 1,000 ML IV SCH ×3 (01:40→17:27)
[2018-02-15] MEDS: PIPERACILLIN/TAZOB 3.375 GM 3.375 GM in DEXTROSE 5%-WATER - 50 ML IVPB SCH ×3 (01:41→17:27)
[2018-02-15] MEDS: LEVOTHYROXINE NA 100 MCG TABLET (FP) PO SCH (06:22)
[2018-02-15] MEDS ORDERED: PT OWN MED DRAWER 7, Y5N ONE (06:33)
[2018-02-15 07:10] LABS: BASO % 0.8 % (0-2.0); EOS % 3.4 % (0-4.5); HEMATOCRIT 32.8 % (32.4-45.2); HEMOGLOBIN 10.6 GM/dL (10.7-15.3); MCHC 32.3 g/dl (32.0-36.0); MEAN CELL VOLUME 86.6 fl (80-96); MEAN PLT VOLUME 8.8 fl (7.5-11.1); MONO % 8.8 % (3.8-10.2); PLATELET COUNT 274 K/MM3 (134-434); RBC 3.78 M/mm3 (3.60-5.2); WHITE BLOOD COUNT 5.2 K/mm3 (4.0-10.0)
[2018-02-15 07:36] LABS: ANION GAP 5 MMOL/L (8-16); BLOOD UREA NITROGEN 12 mg/dL (7-18); CALCIUM 8.2 mg/dL (8.5-10.1); CHLORIDE 113 mmol/L (98-107); CO2 25 mmol/L (21-32); CREATININE 0.3 mg/dL (0.55-1.3); GLUCOSE,RANDOM 92 mg/dL (74-106); PHOSPHOROUS 3.5 mg/dL (2.5-4.9); SODIUM 143 mmol/L (136-145)
[2018-02-15 07:42] LABS: MAGNESIUM 2.2 mg/dL (1.8-2.4); POTASSIUM 3.8 mmol/L (3.5-5.1)
--- NOTE | 2018-02-15 09:37 | PN ---
Progress Note (short form) - Note Progress Note: UROLOGY NOTE 67 Y/O Female patient with history of NB on spc, CA breast, developed AUR and malfunctioning of SPC, she is admitted for IV abx. CT-Scan showed Rt renal stones 11 mm and mild hydronephrosis, multiple bladder stones. BUN 12 S. CREAT 0.3 O/E soft abd with SPC, removal of catheter done and send tip for C&S insertion of 26 F SPC done and connected to bag, 200 cc urine drained. Plan will schedule her for Rt jj stent insertion and bladder laser lithotripsy.
--- NOTE | 2018-02-15 10:15 | PN ---
Progress Note, Physician History of Present Illness: stable no complaints urology note noted plan noted - Current Medication List Current Medications: Active Medications Enoxaparin Sodium (Lovenox -) 40 mg SQ DAILY [facility] Sodium Chloride (Normal Saline -) 1,000 mls @ 75 mls/hr IV ASDIR [facility] Last Admin: 02/15/18 01:40 Dose: 75 mls/hr Piperacillin Sod/Tazobactam (Sod 3.375 gm/ Dextrose) 50 mls @ 100 mls/hr IVPB Q8H-IV [facility]; Protocol Last Admin: 02/15/18 01:41 Dose: 100 mls/hr Levothyroxine Sodium (Synthroid -) 100 mcg PO DAILY@0700 [facility] Last Admin: 02/15/18 06:22 Dose: 100 mcg Pantoprazole Sodium (Protonix -) 40 mg PO DAILY [facility] Last Admin: 02/14/18 15:18 Dose: 40 mg Polyethylene Glycol (Miralax (For Daily Use) -) 17 gm PO BID [facility] Last Admin: 02/14/18 22:54 Dose: Not Given Senna (Senna -) 2 tab PO HS [facility] Last Admin: 02/14/18 22:54 Dose: Not Given Tamoxifen Citrate (Tamoxifen Citrate) 20 mg PO DAILY [facility] Last Admin: 02/14/18 18:16 Dose: 20 mg - Objective Vital Signs: Vital Signs Temperature 97.8 F 02/15/18 05:35 Pulse Rate 69 02/15/18 05:35 Respiratory Rate 20 02/15/18 05:35 Blood Pressure 104/64 02/15/18 05:35 O2 Sat by Pulse Oximetry (%) 96 02/14/18 23:32 Constitutional: Yes: No Distress, Calm Cardiovascular: Yes: Regular Rate and Rhythm Respiratory: Yes: Regular, CTA Bilaterally Gastrointestinal: Yes: Normal Bowel Sounds, Soft Genitourinary: Yes: Chopra Present (suprapubic present) Musculoskeletal: Yes: WNL Extremities: Yes: WNL Neurological: Yes: Alert, Oriented Psychiatric: Yes: Alert, Oriented Labs: CBC, BMP 02/15/18 06:30 02/15/18 06:30 INR, PTT INR 0.98 (0.83-1.09) 02/14/18 04:00 Assessment/Plan Problem List - Problems (1) Suprapubic catheter dysfunction Code(s): T83.010A - BREAKDOWN (MECHANICAL) OF CYSTOSTOMY CATHETER, INIT ENCNTR Qualifiers: Encounter type: initial encounter Qualified Code(s): T83.010A - Breakdown ( mechanical) of cystostomy catheter, initial encounter (2) Fever Code(s): R50.9 - FEVER, UNSPECIFIED Qualifiers: Fever type: due to other condition Qualified Code(s): R50.81 - Fever presenting with conditions classified elsewhere (3) Fecal impaction Code(s): K56.41 - FECAL IMPACTION (4) Dehydration Code(s): E86.0 - DEHYDRATION (5) Nephrolithiasis Code(s): N20.0 - CALCULUS OF KIDNEY (6) Neurogenic bladder Code(s): N31.9 - NEUROMUSCULAR DYSFUNCTION OF BLADDER, UNSPECIFIED (7) Hypothyroid Code(s): E03.9 - HYPOTHYROIDISM, UNSPECIFIED (8) GERD (gastroesophageal reflux disease) Code(s): K21.9 - GASTRO-ESOPHAGEAL REFLUX DISEASE WITHOUT ESOPHAGITIS Qualifiers: Esophagitis presence: without esophagitis Qualified Code(s): K21.9 - Gastro -esophageal reflux disease without esophagitis (9) Breast CA Code(s): C50.919 - MALIGNANT NEOPLASM OF UNSP SITE OF UNSPECIFIED FEMALE BREAST (10) Multiple sclerosis Code(s): G35 - MULTIPLE SCLEROSIS plan continue abx for now repeat cx send pus noted around the catheter site cx ordered monitor urine output rest as per urology
[2018-02-15] MEDS: TAMOXIFEN CITRATE 10 MG TABLET PO SCH (10:54)
[2018-02-15] MEDS: PANTOPRAZOLE 40 MG TABLET (FP) PO SCH (10:54)
[2018-02-15] MEDS: ENOXAPARIN NA (PORCINE) 40 MG/0.4 ML DISP.SYRIN SQ SCH (10:54)
[2018-02-15 11:17] LABS: URINE APPEARANCE CLOUDY; URINE BILIRUBIN NEGATIVE (<2.0 mg/dL); URINE COLOR YELLOW; URINE GLUCOSE (UA) NEGATIVE (NEGATIVE); URINE KETONE NEGATIVE (NEGATIVE); URINE NITRITE NEGATIVE (NEGATIVE); URINE UROBILINOGEN NEGATIVE mg/dL (0.2-1.0)
[2018-02-15 11:28] LABS: URINE LEUK ESTERASE 3+ (NEGATIVE); URINE PROTEIN 1+ (NEGATIVE)
--- NOTE | 2018-02-15 11:30 | PN ---
Progress Note, Physician Chief Complaint: Pt sitting in bed in no acute distress. unable to obtain further - Current Medication List Current Medications: Active Medications Enoxaparin Sodium (Lovenox -) 40 mg SQ DAILY [facility] Last Admin: 02/15/18 10:54 Dose: 40 mg Sodium Chloride (Normal Saline -) 1,000 mls @ 75 mls/hr IV ASDIR [facility] Last Admin: 02/15/18 01:40 Dose: 75 mls/hr Piperacillin Sod/Tazobactam (Sod 3.375 gm/ Dextrose) 50 mls @ 100 mls/hr IVPB Q8H-IV [facility]; Protocol Last Admin: 02/15/18 10:53 Dose: 100 mls/hr Levothyroxine Sodium (Synthroid -) 100 mcg PO DAILY@0700 [facility] Last Admin: 02/15/18 06:22 Dose: 100 mcg Pantoprazole Sodium (Protonix -) 40 mg PO DAILY [facility] Last Admin: 02/15/18 10:54 Dose: 40 mg Polyethylene Glycol (Miralax (For Daily Use) -) 17 gm PO BID [facility] Last Admin: 02/14/18 22:54 Dose: Not Given Senna (Senna -) 2 tab PO HS [facility] Last Admin: 02/14/18 22:54 Dose: Not Given Tamoxifen Citrate (Tamoxifen Citrate) 20 mg PO DAILY [facility] Last Admin: 02/15/18 10:54 Dose: 20 mg - Objective Vital Signs: Vital Signs Temperature 97.8 F 02/15/18 05:35 Pulse Rate 69 02/15/18 05:35 Respiratory Rate 20 02/15/18 05:35 Blood Pressure 104/64 02/15/18 05:35 O2 Sat by Pulse Oximetry (%) 96 02/14/18 23:32 Constitutional: Yes: Well Nourished, No Distress, Calm Cardiovascular: Yes: WNL, Regular Rate and Rhythm. No: Gallop, Murmur Respiratory: Yes: WNL, Regular, CTA Bilaterally. No: Accessory Muscle Use, Rhonchi, Tachypnea, Wheezes Gastrointestinal: Yes: Normal Bowel Sounds, Soft. 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) Wound/Incision: Yes: Dressing Dry and Intact (suprapubic changed, intact) Neurological: Yes: Alert, Confusion Psychiatric: Yes: Alert Labs: CBC, BMP 02/15/18 06:30 02/15/18 06:30 INR, PTT INR 0.98 (0.83-1.09) 02/14/18 04:00 Problem List - Problems (1) Suprapubic catheter dysfunction Code(s): T83.010A - BREAKDOWN (MECHANICAL) OF CYSTOSTOMY CATHETER, INIT ENCNTR Qualifiers: Encounter type: initial encounter Qualified Code(s): T83.010A - Breakdown ( mechanical) of cystostomy catheter, initial encounter (2) Fever Code(s): R50.9 - FEVER, UNSPECIFIED Qualifiers: Fever type: due to other condition Qualified Code(s): R50.81 - Fever presenting with conditions classified elsewhere (3) Fecal impaction Code(s): K56.41 - FECAL IMPACTION (4) Dehydration Code(s): E86.0 - DEHYDRATION (5) Nephrolithiasis Code(s): N20.0 - CALCULUS OF KIDNEY (6) Neurogenic bladder Code(s): N31.9 - NEUROMUSCULAR DYSFUNCTION OF BLADDER, UNSPECIFIED (7) Hypothyroid Code(s): E03.9 - HYPOTHYROIDISM, UNSPECIFIED (8) GERD (gastroesophageal reflux disease) Code(s): K21.9 - GASTRO-ESOPHAGEAL REFLUX DISEASE WITHOUT ESOPHAGITIS Qualifiers: Esophagitis presence: without esophagitis Qualified Code(s): K21.9 - Gastro -esophageal reflux disease without esophagitis (9) Breast CA Code(s): C50.919 - MALIGNANT NEOPLASM OF UNSP SITE OF UNSPECIFIED FEMALE BREAST (10) Multiple sclerosis Code(s): G35 - MULTIPLE SCLEROSIS (11) UTI (urinary tract infection) Code(s): N39.0 - URINARY TRACT INFECTION, SITE NOT SPECIFIED Qualifiers: Urinary tract infection type: catheter-associated UTI Indwelling urinary catheter type: cystostomy catheter Encounter type: initial encounter Qualified Code(s): T83.510A - Infection and inflammatory reaction due to cystostomy catheter, initial encounter; N39.0 - Urinary tract infection, site not specified (12) Hydronephrosis Code(s): N13.30 - UNSPECIFIED HYDRONEPHROSIS Qualifiers: Hydronephrosis type: with renal and ureteral calculous obstruction Qualified Code(s): N13.2 - Hydronephrosis with renal and ureteral calculous obstruction (13) MRSA (methicillin resistant Staphylococcus aureus) Code(s): A49.02 - METHICILLIN RESIS STAPH INFECTION, UNSP SITE Assessment/Plan (1) Suprapubic catheter dysfunction Assessment/Plan: changed by urology this am, now draining yellow/cloudy urine UA +, UC pending Code(s): T83.010A - BREAKDOWN (MECHANICAL) OF CYSTOSTOMY CATHETER, INIT ENCNTR Qualifiers: Encounter type: initial encounter Qualified Code(s): T83.010A - Breakdown ( mechanical) of cystostomy catheter, initial encounter (2) Hydronephrosis Assessment/Plan: 2/2 calculi/uti urology following plan for stent, lithotripsy monitor Code(s): N13.30 - UNSPECIFIED HYDRONEPHROSIS Qualifiers: Hydronephrosis type: with renal and ureteral calculous obstruction Qualified Code(s): N13.2 - Hydronephrosis with renal and ureteral calculous obstruction (3) Nephrolithiasis Assessment/Plan: as above Code(s): N20.0 - CALCULUS OF KIDNEY (4) UTI (urinary tract infection) Assessment/Plan: UA+, UC pending zosyn day 2 ID following Code(s): N39.0 - URINARY TRACT INFECTION, SITE NOT SPECIFIED Qualifiers: Urinary tract infection type: catheter-associated UTI Indwelling urinary catheter type: cystostomy catheter Encounter type: initial encounter Qualified Code(s): T83.510A - Infection and inflammatory reaction due to cystostomy catheter, initial encounter; N39.0 - Urinary tract infection, site not specified (5) Fever Assessment/Plan: 2/2 uti/nephrolithiasis pt w/ hx of prev resistant utis/mrsa as above Code(s): R50.9 - FEVER, UNSPECIFIED Qualifiers: Fever type: due to other condition Qualified Code(s): R50.81 - Fever presenting with conditions classified elsewhere (6) Fecal impaction Assessment/Plan: improving, 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 today colace, miralax, senna monitor Code(s): K56.41 - FECAL IMPACTION (7) Dehydration Assessment/Plan: improved encourage po intake monitor Code(s): E86.0 - DEHYDRATION (8) Neurogenic bladder Assessment/Plan: s/p suprapubic catheter Code(s): N31.9 - NEUROMUSCULAR DYSFUNCTION OF BLADDER, UNSPECIFIED (9) Hypothyroid Assessment/Plan: stable continue synthroid Code(s): E03.9 - HYPOTHYROIDISM, UNSPECIFIED (10) GERD (gastroesophageal reflux disease) Assessment/Plan: stable continue protonix Code(s): K21.9 - GASTRO-ESOPHAGEAL REFLUX DISEASE WITHOUT ESOPHAGITIS Qualifiers: Esophagitis presence: without esophagitis Qualified Code(s): K21.9 - Gastro -esophageal reflux disease without esophagitis (11) Breast CA Assessment/Plan: continue tamoxifen Code(s): C50.919 - MALIGNANT NEOPLASM OF UNSP SITE OF UNSPECIFIED FEMALE BREAST (12) Multiple sclerosis Assessment/Plan: chronic, w/ dementia, neurogenic bladder Code(s): G35 - MULTIPLE SCLEROSIS (13) MRSA (methicillin resistant Staphylococcus aureus) Assessment/Plan: LLE thigh pressure ulcer wound culture + MRSA suspect chronic, blood cultures negative ID following, monitor Code(s): A49.02 - METHICILLIN RESIS STAPH INFECTION, UNSP SITE Dispo: Andrewira at bedside, explained plan, reports understanding
[2018-02-15 11:48] LABS: EPI CELLS RARE /HPF (FEW)
[2018-02-15] MEDS: POLYETHYLENE GLYCOL 3350 119 GM BTL PO SCH (13:37)
[2018-02-15] MEDS ORDERED: VANCOMYCIN 1,000 MG in DEXTROSE 5%-WATER - 250 ML IVPB ONE (14:00)
[2018-02-16] MEDS: SENNOSIDES 8.6MG TABLET (FP) PO SCH ×2 (00:50→21:46)
[2018-02-16] MEDS: POLYETHYLENE GLYCOL 3350 119 GM BTL PO SCH ×3 (00:50→21:46)
[2018-02-16] MEDS ORDERED: DEXTROSE 5%-WATER - 50 ML IVPB ONE ×3 (01:57→16:47)
[2018-02-16] MEDS ORDERED: PIPERACILLIN/TAZOBACTAM 3.375 GM VIAL IVPB ONE ×3 (01:57→16:47)
[2018-02-16] MEDS: PIPERACILLIN/TAZOB 3.375 GM 3.375 GM in DEXTROSE 5%-WATER - 50 ML IVPB SCH ×3 (02:36→17:13)
[2018-02-16] MEDS: LEVOTHYROXINE NA 100 MCG TABLET (FP) PO SCH (06:24)
[2018-02-16 07:13] LABS: BASO % 0.5 % (0-2.0); EOS % 3.8 % (0-4.5); HEMATOCRIT 33.7 % (32.4-45.2); HEMOGLOBIN 10.8 GM/dL (10.7-15.3); LYMPH % 59.1 % (8-40); MCHC 32.1 g/dl (32.0-36.0); MEAN CELL VOLUME 87.2 fl (80-96); MEAN PLT VOLUME 8.8 fl (7.5-11.1); MONO % 7.5 % (3.8-10.2); NEUT % 29.1 % (42.8-82.8); PLATELET COUNT 260 K/MM3 (134-434); RBC 3.87 M/mm3 (3.60-5.2); RDW 14.7 % (11.6-15.6); WHITE BLOOD COUNT 4.4 K/mm3 (4.0-10.0)
[2018-02-16 07:43] LABS: CHLORIDE 111 mmol/L (98-107); POTASSIUM 4.1 mmol/L (3.5-5.1); SODIUM 144 mmol/L (136-145)
[2018-02-16 07:55] LABS: ANION GAP 6 MMOL/L (8-16); BLOOD UREA NITROGEN 9 mg/dL (7-18); CALCIUM 8.3 mg/dL (8.5-10.1); CO2 27 mmol/L (21-32); CREATININE 0.4 mg/dL (0.55-1.3); GLUCOSE,RANDOM 78 mg/dL (74-106)
[2018-02-16] MEDS: TAMOXIFEN CITRATE 10 MG TABLET PO SCH (10:03)
[2018-02-16] MEDS: ENOXAPARIN NA (PORCINE) 40 MG/0.4 ML DISP.SYRIN SQ SCH (10:03)
[2018-02-16] MEDS: PANTOPRAZOLE 40 MG TABLET (FP) PO SCH (10:03)
--- NOTE | 2018-02-16 10:09 | PN ---
Progress Note, Physician History of Present Illness: stable sediments in the urine noted cx result noted mrsa from the wound wound otherwise looks good - Current Medication List Current Medications: Active Medications Enoxaparin Sodium (Lovenox -) 40 mg SQ DAILY [facility] Last Admin: 02/15/18 10:54 Dose: 40 mg Sodium Chloride (Normal Saline -) 1,000 mls @ 75 mls/hr IV ASDIR [facility] Last Admin: 02/15/18 17:27 Dose: 75 mls/hr Piperacillin Sod/Tazobactam (Sod 3.375 gm/ Dextrose) 50 mls @ 100 mls/hr IVPB Q8H-IV [facility]; Protocol Last Admin: 02/16/18 02:36 Dose: 100 mls/hr Levothyroxine Sodium (Synthroid -) 100 mcg PO DAILY@0700 [facility] Last Admin: 02/16/18 06:24 Dose: 100 mcg Pantoprazole Sodium (Protonix -) 40 mg PO DAILY [facility] Last Admin: 02/15/18 10:54 Dose: 40 mg Polyethylene Glycol (Miralax (For Daily Use) -) 17 gm PO BID [facility] Last Admin: 02/16/18 00:50 Dose: 17 grams Senna (Senna -) 2 tab PO HS [facility] Last Admin: 02/16/18 00:50 Dose: 2 tab Tamoxifen Citrate (Tamoxifen Citrate) 20 mg PO DAILY [facility] Last Admin: 02/15/18 10:54 Dose: 20 mg - Objective Vital Signs: Vital Signs Temperature 97.8 F 02/16/18 06:00 Pulse Rate 71 02/16/18 06:00 Respiratory Rate 20 02/16/18 06:00 Blood Pressure 139/71 02/16/18 06:00 O2 Sat by Pulse Oximetry (%) 97 02/15/18 21:00 Constitutional: Yes: No Distress, Calm Cardiovascular: Yes: Regular Rate and Rhythm Respiratory: Yes: Regular, CTA Bilaterally Gastrointestinal: Yes: Normal Bowel Sounds, Soft, Other (peg in place) Genitourinary: Yes: Chopra Present (suprapubic in place) Extremities: Yes: Other Neurological: Yes: Alert, Other Psychiatric: Yes: Other Labs: CBC, BMP 02/16/18 06:15 02/16/18 06:15 INR, PTT INR 0.98 (0.83-1.09) 02/14/18 04:00 Assessment/Plan Problem List - Problems (1) Suprapubic catheter dysfunction Code(s): T83.010A - BREAKDOWN (MECHANICAL) OF CYSTOSTOMY CATHETER, INIT ENCNTR Qualifiers: Encounter type: initial encounter Qualified Code(s): T83.010A - Breakdown ( mechanical) of cystostomy catheter, initial encounter (2) Fever Code(s): R50.9 - FEVER, UNSPECIFIED Qualifiers: Fever type: due to other condition Qualified Code(s): R50.81 - Fever presenting with conditions classified elsewhere (3) Fecal impaction Code(s): K56.41 - FECAL IMPACTION (4) Dehydration Code(s): E86.0 - DEHYDRATION (5) Nephrolithiasis Code(s): N20.0 - CALCULUS OF KIDNEY (6) Neurogenic bladder Code(s): N31.9 - NEUROMUSCULAR DYSFUNCTION OF BLADDER, UNSPECIFIED (7) Hypothyroid Code(s): E03.9 - HYPOTHYROIDISM, UNSPECIFIED (8) GERD (gastroesophageal reflux disease) Code(s): K21.9 - GASTRO-ESOPHAGEAL REFLUX DISEASE WITHOUT ESOPHAGITIS Qualifiers: Esophagitis presence: without esophagitis Qualified Code(s): K21.9 - Gastro -esophageal reflux disease without esophagitis (9) Breast CA Code(s): C50.919 - MALIGNANT NEOPLASM OF UNSP SITE OF UNSPECIFIED FEMALE BREAST (10) Multiple sclerosis Code(s): G35 - MULTIPLE SCLEROSIS plan continue abx for now await cx reports final plan from urology awaited rest as per the team
--- NOTE | 2018-02-16 12:12 | PN ---
Progress Note, Physician Chief Complaint: Pt sitting in bed in no acute distress. unable to obtain further - Current Medication List Current Medications: Active Medications Clindamycin HCl (Cleocin -) 300 mg PO TID [facility] Enoxaparin Sodium (Lovenox -) 40 mg SQ DAILY [facility] Last Admin: 02/16/18 10:03 Dose: 40 mg Sodium Chloride (Normal Saline -) 1,000 mls @ 75 mls/hr IV ASDIR [facility] Last Admin: 02/15/18 17:27 Dose: 75 mls/hr Piperacillin Sod/Tazobactam (Sod 3.375 gm/ Dextrose) 50 mls @ 100 mls/hr IVPB Q8H-IV [facility]; Protocol Last Admin: 02/16/18 10:03 Dose: 100 mls/hr Levothyroxine Sodium (Synthroid -) 100 mcg PO DAILY@0700 [facility] Last Admin: 02/16/18 06:24 Dose: 100 mcg Pantoprazole Sodium (Protonix -) 40 mg PO DAILY [facility] Last Admin: 02/16/18 10:03 Dose: 40 mg Polyethylene Glycol (Miralax (For Daily Use) -) 17 gm PO BID [facility] Last Admin: 02/16/18 00:50 Dose: 17 grams Senna (Senna -) 2 tab PO HS [facility] Last Admin: 02/16/18 00:50 Dose: 2 tab Tamoxifen Citrate (Tamoxifen Citrate) 20 mg PO DAILY [facility] Last Admin: 02/16/18 10:03 Dose: 20 mg - Objective Vital Signs: Vital Signs Temperature 97.8 F 02/16/18 06:00 Pulse Rate 72 02/16/18 10:00 Respiratory Rate 20 02/16/18 10:00 Blood Pressure 153/94 02/16/18 10:00 O2 Sat by Pulse Oximetry (%) 97 02/15/18 21:00 Constitutional: Yes: Well Nourished, No Distress Cardiovascular: Yes: WNL, Regular Rate and Rhythm. No: Gallop, Murmur Respiratory: Yes: WNL, Regular, CTA Bilaterally. No: Rhonchi, SOB, Tachypnea, Wheezes Gastrointestinal: Yes: WNL, Normal Bowel Sounds, Soft. No: Distention, Tenderness Genitourinary: Yes: Other (suprapubic draining) Edema: No Integumentary: Yes: Pressure Ulcer (RLE thigh- chronic, no erythema/drainage) Neurological: Yes: Alert, Confusion Psychiatric: Yes: Alert Labs: CBC, BMP 02/16/18 06:15 02/16/18 06:15 INR, PTT INR 0.98 (0.83-1.09) 02/14/18 04:00 Problem List - Problems (1) Suprapubic catheter dysfunction Code(s): T83.010A - BREAKDOWN (MECHANICAL) OF CYSTOSTOMY CATHETER, INIT ENCNTR Qualifiers: Encounter type: initial encounter Qualified Code(s): T83.010A - Breakdown ( mechanical) of cystostomy catheter, initial encounter (2) Fever Code(s): R50.9 - FEVER, UNSPECIFIED Qualifiers: Fever type: due to other condition Qualified Code(s): R50.81 - Fever presenting with conditions classified elsewhere (3) Fecal impaction Code(s): K56.41 - FECAL IMPACTION (4) Dehydration Code(s): E86.0 - DEHYDRATION (5) Nephrolithiasis Code(s): N20.0 - CALCULUS OF KIDNEY (6) Neurogenic bladder Code(s): N31.9 - NEUROMUSCULAR DYSFUNCTION OF BLADDER, UNSPECIFIED (7) Hypothyroid Code(s): E03.9 - HYPOTHYROIDISM, UNSPECIFIED (8) GERD (gastroesophageal reflux disease) Code(s): K21.9 - GASTRO-ESOPHAGEAL REFLUX DISEASE WITHOUT ESOPHAGITIS Qualifiers: Esophagitis presence: without esophagitis Qualified Code(s): K21.9 - Gastro -esophageal reflux disease without esophagitis (9) Breast CA Code(s): C50.919 - MALIGNANT NEOPLASM OF UNSP SITE OF UNSPECIFIED FEMALE BREAST (10) Multiple sclerosis Code(s): G35 - MULTIPLE SCLEROSIS (11) UTI (urinary tract infection) Code(s): N39.0 - URINARY TRACT INFECTION, SITE NOT SPECIFIED Qualifiers: Urinary tract infection type: catheter-associated UTI Indwelling urinary catheter type: cystostomy catheter Encounter type: initial encounter Qualified Code(s): T83.510A - Infection and inflammatory reaction due to cystostomy catheter, initial encounter; N39.0 - Urinary tract infection, site not specified (12) Hydronephrosis Code(s): N13.30 - UNSPECIFIED HYDRONEPHROSIS Qualifiers: Hydronephrosis type: with renal and ureteral calculous obstruction Qualified Code(s): N13.2 - Hydronephrosis with renal and ureteral calculous obstruction (13) MRSA (methicillin resistant Staphylococcus aureus) Code(s): A49.02 - METHICILLIN RESIS STAPH INFECTION, UNSP SITE Assessment/Plan (1) Suprapubic catheter dysfunction Assessment/Plan: draining yellow/cloudy urine UA +, UC neg Code(s): T83.010A - BREAKDOWN (MECHANICAL) OF CYSTOSTOMY CATHETER, INIT ENCNTR Qualifiers: Encounter type: initial encounter Qualified Code(s): T83.010A - Breakdown ( mechanical) of cystostomy catheter, initial encounter (2) Hydronephrosis Assessment/Plan: 2/2 calculi/uti urology following plan for stent, lithotripsy on TUES Code(s): N13.30 - UNSPECIFIED HYDRONEPHROSIS Qualifiers: Hydronephrosis type: with renal and ureteral calculous obstruction Qualified Code(s): N13.2 - Hydronephrosis with renal and ureteral calculous obstruction (3) Nephrolithiasis Assessment/Plan: as above Code(s): N20.0 - CALCULUS OF KIDNEY (4) UTI (urinary tract infection) Assessment/Plan: UA+, UC neg zosyn day 3 clinadmycin po ID following Code(s): N39.0 - URINARY TRACT INFECTION, SITE NOT SPECIFIED Qualifiers: Urinary tract infection type: catheter-associated UTI Indwelling urinary catheter type: cystostomy catheter Encounter type: initial encounter Qualified Code(s): T83.510A - Infection and inflammatory reaction due to cystostomy catheter, initial encounter; N39.0 - Urinary tract infection, site not specified (5) Fever Assessment/Plan: afebrile for 48 hours, wbc wnl blood cultures neg as above Code(s): R50.9 - FEVER, UNSPECIFIED Qualifiers: Fever type: due to other condition Qualified Code(s): R50.81 - Fever presenting with conditions classified elsewhere (6) Fecal impaction Assessment/Plan: colace, miralax, senna having bms kub scan tomorrow am to assess monitor Code(s): K56.41 - FECAL IMPACTION (7) Dehydration Assessment/Plan: improved Code(s): E86.0 - DEHYDRATION (8) Neurogenic bladder Assessment/Plan: s/p suprapubic catheter Code(s): N31.9 - NEUROMUSCULAR DYSFUNCTION OF BLADDER, UNSPECIFIED (9) Hypothyroid Assessment/Plan: stable continue synthroid Code(s): E03.9 - HYPOTHYROIDISM, UNSPECIFIED (10) GERD (gastroesophageal reflux disease) Assessment/Plan: stable continue protonix Code(s): K21.9 - GASTRO-ESOPHAGEAL REFLUX DISEASE WITHOUT ESOPHAGITIS Qualifiers: Esophagitis presence: without esophagitis Qualified Code(s): K21.9 - Gastro -esophageal reflux disease without esophagitis (11) Breast CA Assessment/Plan: continue tamoxifen Code(s): C50.919 - MALIGNANT NEOPLASM OF UNSP SITE OF UNSPECIFIED FEMALE BREAST (12) Multiple sclerosis Assessment/Plan: chronic, w/ dementia, neurogenic bladder Code(s): G35 - MULTIPLE SCLEROSIS (13) MRSA (methicillin resistant Staphylococcus aureus) Assessment/Plan: LLE thigh pressure ulcer wound culture + MRSA suspect chronic, blood cultures negative ID following, monitor Code(s): A49.02 - METHICILLIN RESIS STAPH INFECTION, UNSP SITE Dispo: Plan for stent, bladder laser lithotripsy Tuesday. Ok for discharge if pt stable per urology and can do procedure outpt. Awaiting suprapubic flaquito incision culture.
[2018-02-16] MEDS: SODIUM CHLORIDE 1,000 ML IV SCH ×2 (12:43→21:46)
[2018-02-16] MEDS: CLINDAMYCIN HCL 150 MG CAPSULE (FP) PO SCH ×2 (13:57→21:46)
[2018-02-16 14:48] VITALS: BMI 21.4
[2018-02-17] MEDS ORDERED: PIPERACILLIN/TAZOBACTAM 3.375 GM VIAL IVPB ONE ×3 (01:04→17:31)
[2018-02-17] MEDS ORDERED: DEXTROSE 5%-WATER - 50 ML IVPB ONE ×3 (01:04→17:31)
[2018-02-17] MEDS: PIPERACILLIN/TAZOB 3.375 GM 3.375 GM in DEXTROSE 5%-WATER - 50 ML IVPB SCH ×3 (01:46→17:36)
[2018-02-17] MEDS: CLINDAMYCIN HCL 150 MG CAPSULE (FP) PO SCH ×3 (06:16→22:50)
[2018-02-17] MEDS: LEVOTHYROXINE NA 100 MCG TABLET (FP) PO SCH (06:17)
[2018-02-17 07:22] LABS: BASO % 0.3 % (0-2.0); EOS % 2.8 % (0-4.5); HEMATOCRIT 32.4 % (32.4-45.2); HEMOGLOBIN 10.7 GM/dL (10.7-15.3); LYMPH % 54.9 % (8-40); MCH 28.6 pg (25.7-33.7); MCHC 32.9 g/dl (32.0-36.0); MEAN CELL VOLUME 86.8 fl (80-96); MEAN PLT VOLUME 8.8 fl (7.5-11.1); MONO % 6.5 % (3.8-10.2); NEUT % 35.5 % (42.8-82.8); PLATELET COUNT 277 K/MM3 (134-434); RBC 3.74 M/mm3 (3.60-5.2); WHITE BLOOD COUNT 5.2 K/mm3 (4.0-10.0)
[2018-02-17 07:48] LABS: ANION GAP 3 MMOL/L (8-16); BLOOD UREA NITROGEN 10 mg/dL (7-18); CALCIUM 8.3 mg/dL (8.5-10.1); CHLORIDE 110 mmol/L (98-107); CO2 29 mmol/L (21-32); CREATININE 0.5 mg/dL (0.55-1.3); GLUCOSE,RANDOM 79 mg/dL (74-106); POTASSIUM 4.2 mmol/L (3.5-5.1); SODIUM 142 mmol/L (136-145)
--- NOTE | 2018-02-17 08:48 | PN ---
Progress Note, Physician History of Present Illness: doing well no complaints - Current Medication List Current Medications: Active Medications Clindamycin HCl (Cleocin -) 300 mg PO TID [facility] Last Admin: 02/17/18 06:16 Dose: 300 mg Enoxaparin Sodium (Lovenox -) 40 mg SQ DAILY [facility] Last Admin: 02/16/18 10:03 Dose: 40 mg Sodium Chloride (Normal Saline -) 1,000 mls @ 75 mls/hr IV ASDIR [facility] Last Admin: 02/16/18 21:46 Dose: 75 mls/hr Piperacillin Sod/Tazobactam (Sod 3.375 gm/ Dextrose) 50 mls @ 100 mls/hr IVPB Q8H-IV [facility]; Protocol Last Admin: 02/17/18 01:46 Dose: 100 mls/hr Levothyroxine Sodium (Synthroid -) 100 mcg PO DAILY@0700 [facility] Last Admin: 02/17/18 06:17 Dose: 100 mcg Pantoprazole Sodium (Protonix -) 40 mg PO DAILY [facility] Last Admin: 02/16/18 10:03 Dose: 40 mg Polyethylene Glycol (Miralax (For Daily Use) -) 17 gm PO BID [facility] Last Admin: 02/16/18 21:46 Dose: 17 grams Senna (Senna -) 2 tab PO HS [facility] Last Admin: 02/16/18 21:46 Dose: 2 tab Tamoxifen Citrate (Tamoxifen Citrate) 20 mg PO DAILY [facility] Last Admin: 02/16/18 10:03 Dose: 20 mg - Objective Vital Signs: Vital Signs Temperature 97.6 F 02/17/18 06:26 Pulse Rate 74 02/17/18 06:26 Respiratory Rate 18 02/17/18 06:26 Blood Pressure 130/70 02/17/18 06:26 O2 Sat by Pulse Oximetry (%) 95 02/16/18 21:00 Constitutional: Yes: No Distress, Calm Cardiovascular: Yes: Regular Rate and Rhythm Respiratory: Yes: Regular, CTA Bilaterally Gastrointestinal: Yes: Normal Bowel Sounds, Soft Genitourinary: Yes: Chopra Present (suprapubic) Musculoskeletal: Yes: WNL Extremities: Yes: Other Neurological: Yes: Alert, Other Labs: CBC, BMP 02/17/18 06:00 02/17/18 06:00 INR, PTT INR 0.98 (0.83-1.09) 02/14/18 04:00 Assessment/Plan Problem List - Problems (1) Suprapubic catheter dysfunction Code(s): T83.010A - BREAKDOWN (MECHANICAL) OF CYSTOSTOMY CATHETER, INIT ENCNTR Qualifiers: Encounter type: initial encounter Qualified Code(s): T83.010A - Breakdown ( mechanical) of cystostomy catheter, initial encounter (2) Fever Code(s): R50.9 - FEVER, UNSPECIFIED Qualifiers: Fever type: due to other condition Qualified Code(s): R50.81 - Fever presenting with conditions classified elsewhere (3) Fecal impaction Code(s): K56.41 - FECAL IMPACTION (4) Dehydration Code(s): E86.0 - DEHYDRATION (5) Nephrolithiasis Code(s): N20.0 - CALCULUS OF KIDNEY (6) Neurogenic bladder Code(s): N31.9 - NEUROMUSCULAR DYSFUNCTION OF BLADDER, UNSPECIFIED (7) Hypothyroid Code(s): E03.9 - HYPOTHYROIDISM, UNSPECIFIED (8) GERD (gastroesophageal reflux disease) Code(s): K21.9 - GASTRO-ESOPHAGEAL REFLUX DISEASE WITHOUT ESOPHAGITIS Qualifiers: Esophagitis presence: without esophagitis Qualified Code(s): K21.9 - Gastro -esophageal reflux disease without esophagitis (9) Breast CA Code(s): C50.919 - MALIGNANT NEOPLASM OF UNSP SITE OF UNSPECIFIED FEMALE BREAST (10) Multiple sclerosis Code(s): G35 - MULTIPLE SCLEROSIS plan continue abx for now cx report noted await for identification of the organism and sensitivities plan is to do procedure on tue or tuesday by urology
[2018-02-17] MEDS ORDERED: PT OWN MED DRAWER 7, Y5N ONE (10:16)
[2018-02-17] MEDS: ENOXAPARIN NA (PORCINE) 40 MG/0.4 ML DISP.SYRIN SQ SCH (10:24)
[2018-02-17] MEDS: PANTOPRAZOLE 40 MG TABLET (FP) PO SCH (10:24)
[2018-02-17] MEDS: TAMOXIFEN CITRATE 10 MG TABLET PO SCH (10:25)
[2018-02-17] MEDS: POLYETHYLENE GLYCOL 3350 119 GM BTL PO SCH ×2 (10:25→22:50)
[2018-02-17] MEDS: SODIUM CHLORIDE 1,000 ML IV SCH (10:26)
--- NOTE | 2018-02-17 17:37 | PN ---
Progress Note, Physician Chief Complaint: Pt sitting in bed in no acute distress. unable to obtain further - Current Medication List Current Medications: Active Medications Clindamycin HCl (Cleocin -) 300 mg PO TID [facility] Last Admin: 02/17/18 14:35 Dose: 300 mg Enoxaparin Sodium (Lovenox -) 40 mg SQ DAILY [facility] Last Admin: 02/17/18 10:24 Dose: 40 mg Sodium Chloride (Normal Saline -) 1,000 mls @ 75 mls/hr IV ASDIR [facility] Last Admin: 02/17/18 10:26 Dose: Not Given Piperacillin Sod/Tazobactam (Sod 3.375 gm/ Dextrose) 50 mls @ 100 mls/hr IVPB Q8H-IV [facility]; Protocol Last Admin: 02/17/18 17:36 Dose: 100 mls/hr Levothyroxine Sodium (Synthroid -) 100 mcg PO DAILY@0700 [facility] Last Admin: 02/17/18 06:17 Dose: 100 mcg Pantoprazole Sodium (Protonix -) 40 mg PO DAILY [facility] Last Admin: 02/17/18 10:24 Dose: 40 mg Polyethylene Glycol (Miralax (For Daily Use) -) 17 gm PO BID [facility] Last Admin: 02/17/18 10:25 Dose: 17 grams Senna (Senna -) 2 tab PO HS [facility] Last Admin: 02/16/18 21:46 Dose: 2 tab Tamoxifen Citrate (Tamoxifen Citrate) 20 mg PO DAILY [facility] Last Admin: 02/17/18 10:25 Dose: 20 mg - Objective Vital Signs: Vital Signs Temperature 97.5 F L 02/17/18 14:00 Pulse Rate 88 02/17/18 14:00 Respiratory Rate 20 02/17/18 14:00 Blood Pressure 156/85 02/17/18 14:00 O2 Sat by Pulse Oximetry (%) 95 02/17/18 09:00 Constitutional: Yes: Well Nourished, No Distress Cardiovascular: Yes: WNL, Regular Rate and Rhythm. No: Murmur, Rub Respiratory: Yes: WNL, Regular, CTA Bilaterally. No: Accessory Muscle Use, Rales, Rhonchi, SOB, Tachypnea, Wheezes Gastrointestinal: Yes: WNL, Normal Bowel Sounds. No: Distention, Tenderness Genitourinary: Yes: Other (supra pubic catheter draining) Edema: No Neurological: Yes: Alert, Confusion Psychiatric: Yes: Alert Labs: CBC, BMP 02/17/18 06:00 02/17/18 06:00 INR, PTT INR 0.98 (0.83-1.09) 02/14/18 04:00 Problem List - Problems (1) Suprapubic catheter dysfunction Code(s): T83.010A - BREAKDOWN (MECHANICAL) OF CYSTOSTOMY CATHETER, INIT ENCNTR Qualifiers: Encounter type: initial encounter Qualified Code(s): T83.010A - Breakdown ( mechanical) of cystostomy catheter, initial encounter (2) Fever Code(s): R50.9 - FEVER, UNSPECIFIED Qualifiers: Fever type: due to other condition Qualified Code(s): R50.81 - Fever presenting with conditions classified elsewhere (3) Fecal impaction Code(s): K56.41 - FECAL IMPACTION (4) Dehydration Code(s): E86.0 - DEHYDRATION (5) Nephrolithiasis Code(s): N20.0 - CALCULUS OF KIDNEY (6) Neurogenic bladder Code(s): N31.9 - NEUROMUSCULAR DYSFUNCTION OF BLADDER, UNSPECIFIED (7) Hypothyroid Code(s): E03.9 - HYPOTHYROIDISM, UNSPECIFIED (8) GERD (gastroesophageal reflux disease) Code(s): K21.9 - GASTRO-ESOPHAGEAL REFLUX DISEASE WITHOUT ESOPHAGITIS Qualifiers: Esophagitis presence: without esophagitis Qualified Code(s): K21.9 - Gastro -esophageal reflux disease without esophagitis (9) Breast CA Code(s): C50.919 - MALIGNANT NEOPLASM OF UNSP SITE OF UNSPECIFIED FEMALE BREAST (10) Multiple sclerosis Code(s): G35 - MULTIPLE SCLEROSIS (11) UTI (urinary tract infection) Code(s): N39.0 - URINARY TRACT INFECTION, SITE NOT SPECIFIED Qualifiers: Urinary tract infection type: catheter-associated UTI Indwelling urinary catheter type: cystostomy catheter Encounter type: initial encounter Qualified Code(s): T83.510A - Infection and inflammatory reaction due to cystostomy catheter, initial encounter; N39.0 - Urinary tract infection, site not specified (12) Hydronephrosis Code(s): N13.30 - UNSPECIFIED HYDRONEPHROSIS Qualifiers: Hydronephrosis type: with renal and ureteral calculous obstruction Qualified Code(s): N13.2 - Hydronephrosis with renal and ureteral calculous obstruction (13) MRSA (methicillin resistant Staphylococcus aureus) Code(s): A49.02 - METHICILLIN RESIS STAPH INFECTION, UNSP SITE Assessment/Plan (1) Suprapubic catheter dysfunction Assessment/Plan: resolved draining yellow/cloudy urine UA +, UC neg flaquito-catheter area culture growing providentia, group d strep/enterococcus, pt will need antibx upon d/c per ID Code(s): T83.010A - BREAKDOWN (MECHANICAL) OF CYSTOSTOMY CATHETER, INIT ENCNTR Qualifiers: Encounter type: initial encounter Qualified Code(s): T83.010A - Breakdown ( mechanical) of cystostomy catheter, initial encounter (2) Hydronephrosis Assessment/Plan: 2/2 calculi/uti plan for stent, lithotripsy on TUES outpt Code(s): N13.30 - UNSPECIFIED HYDRONEPHROSIS Qualifiers: Hydronephrosis type: with renal and ureteral calculous obstruction Qualified Code(s): N13.2 - Hydronephrosis with renal and ureteral calculous obstruction (3) Nephrolithiasis Assessment/Plan: as above Code(s): N20.0 - CALCULUS OF KIDNEY (4) UTI (urinary tract infection) Assessment/Plan: UA+, UC neg zosyn day 4 clinadmycin po ID following Code(s): N39.0 - URINARY TRACT INFECTION, SITE NOT SPECIFIED Qualifiers: Urinary tract infection type: catheter-associated UTI Indwelling urinary catheter type: cystostomy catheter Encounter type: initial encounter Qualified Code(s): T83.510A - Infection and inflammatory reaction due to cystostomy catheter, initial encounter; N39.0 - Urinary tract infection, site not specified (5) Fever Assessment/Plan: afebrile for 72 hours, wbc wnl blood cultures neg as above Code(s): R50.9 - FEVER, UNSPECIFIED Qualifiers: Fever type: due to other condition Qualified Code(s): R50.81 - Fever presenting with conditions classified elsewhere (6) Fecal impaction Assessment/Plan: colace, miralax, senna having bms kub scan shows improvement SSEx 1 today monitor Code(s): K56.41 - FECAL IMPACTION (7) Dehydration Assessment/Plan: improved Code(s): E86.0 - DEHYDRATION (8) Neurogenic bladder Assessment/Plan: s/p suprapubic catheter Code(s): N31.9 - NEUROMUSCULAR DYSFUNCTION OF BLADDER, UNSPECIFIED (9) Hypothyroid Assessment/Plan: stable continue synthroid Code(s): E03.9 - HYPOTHYROIDISM, UNSPECIFIED (10) GERD (gastroesophageal reflux disease) Assessment/Plan: stable continue protonix Code(s): K21.9 - GASTRO-ESOPHAGEAL REFLUX DISEASE WITHOUT ESOPHAGITIS Qualifiers: Esophagitis presence: without esophagitis Qualified Code(s): K21.9 - Gastro -esophageal reflux disease without esophagitis (11) Breast CA Assessment/Plan: continue tamoxifen Code(s): C50.919 - MALIGNANT NEOPLASM OF UNSP SITE OF UNSPECIFIED FEMALE BREAST (12) Multiple sclerosis Assessment/Plan: chronic, w/ dementia, neurogenic bladder Code(s): G35 - MULTIPLE SCLEROSIS (13) MRSA (methicillin resistant Staphylococcus aureus) Assessment/Plan: LLE thigh pressure ulcer wound culture + MRSA suspect chronic, blood cultures negative ID following, monitor Code(s): A49.02 - METHICILLIN RESIS STAPH INFECTION, UNSP SITE Dispo: Plan for stent, bladder laser lithotripsy Tuesday .Ok for discharge if pt stable per urology and can do procedure outpt. Pt on zosyn, and clindamycin. Suprapubic flaquito incision c&s back, ID informed. Will need input from ID as to final plan for pt. Awaiting ID clearance
[2018-02-17] MEDS: SENNOSIDES 8.6MG TABLET (FP) PO SCH (22:50)
[2018-02-18] MEDS ORDERED: PIPERACILLIN/TAZOBACTAM 3.375 GM VIAL IVPB ONE ×3 (01:37→18:03)
[2018-02-18] MEDS ORDERED: DEXTROSE 5%-WATER - 50 ML IVPB ONE ×3 (01:38→18:04)
[2018-02-18] MEDS: PIPERACILLIN/TAZOB 3.375 GM 3.375 GM in DEXTROSE 5%-WATER - 50 ML IVPB SCH ×3 (02:22→19:05)
[2018-02-18] MEDS ORDERED: MAGNESIUM CITRATE 300 ML BOTTLE PO ONE (06:00)
[2018-02-18] MEDS: CLINDAMYCIN HCL 150 MG CAPSULE (FP) PO SCH ×3 (06:26→21:39)
[2018-02-18] MEDS: LEVOTHYROXINE NA 100 MCG TABLET (FP) PO SCH (06:26)
--- NOTE | 2018-02-18 09:33 | PN ---
Progress Note, Physician History of Present Illness: stable no new issues cx report noted - Current Medication List Current Medications: Active Medications Clindamycin HCl (Cleocin -) 300 mg PO TID [facility] Last Admin: 02/18/18 06:26 Dose: 300 mg Enoxaparin Sodium (Lovenox -) 40 mg SQ DAILY [facility] Last Admin: 02/17/18 10:24 Dose: 40 mg Piperacillin Sod/Tazobactam (Sod 3.375 gm/ Dextrose) 50 mls @ 100 mls/hr IVPB Q8H-IV [facility]; Protocol Last Admin: 02/18/18 02:22 Dose: 100 mls/hr Levothyroxine Sodium (Synthroid -) 100 mcg PO DAILY@0700 [facility] Last Admin: 02/18/18 06:26 Dose: 100 mcg Pantoprazole Sodium (Protonix -) 40 mg PO DAILY [facility] Last Admin: 02/17/18 10:24 Dose: 40 mg Polyethylene Glycol (Miralax (For Daily Use) -) 17 gm PO BID [facility] Last Admin: 02/17/18 22:50 Dose: 17 grams Senna (Senna -) 2 tab PO HS [facility] Last Admin: 02/17/18 22:50 Dose: 2 tab Tamoxifen Citrate (Tamoxifen Citrate) 20 mg PO DAILY [facility] Last Admin: 02/17/18 10:25 Dose: 20 mg - Objective Vital Signs: Vital Signs Temperature 97.8 F 02/18/18 06:44 Pulse Rate 69 02/18/18 06:44 Respiratory Rate 20 02/18/18 06:44 Blood Pressure 138/75 02/18/18 06:44 O2 Sat by Pulse Oximetry (%) 95 02/17/18 20:57 Constitutional: Yes: No Distress, Calm Cardiovascular: Yes: Regular Rate and Rhythm Respiratory: Yes: Regular, CTA Bilaterally Gastrointestinal: Yes: Normal Bowel Sounds, Soft Genitourinary: Yes: Chopra Present (suprapubic) Musculoskeletal: Yes: WNL Extremities: Yes: WNL Wound/Incision: Yes: Clean/Dry Neurological: Yes: Alert, Other Psychiatric: Yes: Alert Labs: CBC, BMP 02/17/18 06:00 02/17/18 06:00 INR, PTT INR 0.98 (0.83-1.09) 02/14/18 04:00 Assessment/Plan Problem List - Problems (1) Suprapubic catheter dysfunction Code(s): T83.010A - BREAKDOWN (MECHANICAL) OF CYSTOSTOMY CATHETER, INIT ENCNTR Qualifiers: Encounter type: initial encounter Qualified Code(s): T83.010A - Breakdown ( mechanical) of cystostomy catheter, initial encounter (2) Fever Code(s): R50.9 - FEVER, UNSPECIFIED Qualifiers: Fever type: due to other condition Qualified Code(s): R50.81 - Fever presenting with conditions classified elsewhere (3) Fecal impaction Code(s): K56.41 - FECAL IMPACTION (4) Dehydration Code(s): E86.0 - DEHYDRATION (5) Nephrolithiasis Code(s): N20.0 - CALCULUS OF KIDNEY (6) Neurogenic bladder Code(s): N31.9 - NEUROMUSCULAR DYSFUNCTION OF BLADDER, UNSPECIFIED (7) Hypothyroid Code(s): E03.9 - HYPOTHYROIDISM, UNSPECIFIED (8) GERD (gastroesophageal reflux disease) Code(s): K21.9 - GASTRO-ESOPHAGEAL REFLUX DISEASE WITHOUT ESOPHAGITIS Qualifiers: Esophagitis presence: without esophagitis Qualified Code(s): K21.9 - Gastro -esophageal reflux disease without esophagitis (9) Breast CA Code(s): C50.919 - MALIGNANT NEOPLASM OF UNSP SITE OF UNSPECIFIED FEMALE BREAST (10) Multiple sclerosis Code(s): G35 - MULTIPLE SCLEROSIS plan cx report noted patient going to get urology procedure on tuesday keep patient on zosyn 3.375 mg every 8hrly untill patient has the procedure and then post op one day and if everything goes well can stop it continue clinda for another 7 days
[2018-02-18] MEDS: PANTOPRAZOLE 40 MG TABLET (FP) PO SCH (10:59)
[2018-02-18] MEDS: ENOXAPARIN NA (PORCINE) 40 MG/0.4 ML DISP.SYRIN SQ SCH (10:59)
[2018-02-18] MEDS: TAMOXIFEN CITRATE 10 MG TABLET PO SCH (11:00)
[2018-02-18] MEDS: POLYETHYLENE GLYCOL 3350 119 GM BTL PO SCH ×2 (12:15→21:59)
--- NOTE | 2018-02-18 13:03 | PN ---
Progress Note, Physician Chief Complaint: Reamined afebrile no new complaints History of Present Illness: 67F with a PMH of MS, paraplegia, neuromuscular dysfunction of bladder s/p suprapubic catheter, anemia, UTI, dysphagia, muscle spasm,found to a UTI - Current Medication List Current Medications: Active Medications Clindamycin HCl (Cleocin -) 300 mg PO TID [facility] Last Admin: 02/18/18 06:26 Dose: 300 mg Enoxaparin Sodium (Lovenox -) 40 mg SQ DAILY [facility] Last Admin: 02/18/18 10:59 Dose: 40 mg Piperacillin Sod/Tazobactam (Sod 3.375 gm/ Dextrose) 50 mls @ 100 mls/hr IVPB Q8H-IV [facility]; Protocol Last Admin: 02/18/18 10:59 Dose: 100 mls/hr Levothyroxine Sodium (Synthroid -) 100 mcg PO DAILY@0700 [facility] Last Admin: 02/18/18 06:26 Dose: 100 mcg Pantoprazole Sodium (Protonix -) 40 mg PO DAILY [facility] Last Admin: 02/18/18 10:59 Dose: 40 mg Polyethylene Glycol (Miralax (For Daily Use) -) 17 gm PO BID [facility] Last Admin: 02/18/18 12:15 Dose: 17 grams Senna (Senna -) 2 tab PO HS [facility] Last Admin: 02/17/18 22:50 Dose: 2 tab Tamoxifen Citrate (Tamoxifen Citrate) 20 mg PO DAILY [facility] Last Admin: 02/18/18 11:00 Dose: 20 mg - Objective Vital Signs: Vital Signs Temperature 97.8 F 02/18/18 06:44 Pulse Rate 69 02/18/18 06:44 Respiratory Rate 20 02/18/18 06:44 Blood Pressure 138/75 02/18/18 06:44 O2 Sat by Pulse Oximetry (%) 95 02/17/18 20:57 Middle aged F oriented to self not in distress HEENT: Mm moist, no anemia, PERRLA EOMI NECK; No JVD No Bruit CHEST: CTA B/L CVS: S1S2 R no m/g/r ABD: suprapubic cathter at place, no distention, non tender Bs + EXT: No edema, contracture 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, no interval changes Labs: CBC, BMP 02/17/18 06:00 02/17/18 06:00 INR, PTT INR 0.98 (0.83-1.09) 02/14/18 04:00 Problem List - Problems (1) Suprapubic catheter dysfunction Assessment/Plan: on IV abx , cathter chnged in the Ed Code(s): T83.010A - BREAKDOWN (MECHANICAL) OF CYSTOSTOMY CATHETER, INIT ENCNTR Qualifiers: Encounter type: initial encounter Qualified Code(s): T83.010A - Breakdown ( mechanical) of cystostomy catheter, initial encounter (2) UTI (urinary tract infection) Assessment/Plan: Cont current abx Code(s): N39.0 - URINARY TRACT INFECTION, SITE NOT SPECIFIED Qualifiers: Urinary tract infection type: catheter-associated UTI Indwelling urinary catheter type: cystostomy catheter Encounter type: initial encounter Qualified Code(s): T83.510A - Infection and inflammatory reaction due to cystostomy catheter, initial encounter; N39.0 - Urinary tract infection, site not specified (3) MRSA (methicillin resistant Staphylococcus aureus) Assessment/Plan: Cont Vancomycine Code(s): A49.02 - METHICILLIN RESIS STAPH INFECTION, UNSP SITE (4) Hypothyroid Assessment/Plan: cont Levothyroxine Code(s): E03.9 - HYPOTHYROIDISM, UNSPECIFIED (5) GERD (gastroesophageal reflux disease) Assessment/Plan: on PPI Code(s): K21.9 - GASTRO-ESOPHAGEAL REFLUX DISEASE WITHOUT ESOPHAGITIS Qualifiers: Esophagitis presence: without esophagitis Qualified Code(s): K21.9 - Gastro -esophageal reflux disease without esophagitis (6) Dehydration Assessment/Plan: Iv Hydration Code(s): E86.0 - DEHYDRATION (7) Multiple sclerosis Assessment/Plan: chronic Code(s): G35 - MULTIPLE SCLEROSIS
[2018-02-18] MEDS: SENNOSIDES 8.6MG TABLET (FP) PO SCH (21:39)
[2018-02-19] MEDS ORDERED: PIPERACILLIN/TAZOBACTAM 3.375 GM VIAL IVPB ONE ×3 (00:32→17:32)
[2018-02-19] MEDS ORDERED: DEXTROSE 5%-WATER - 50 ML IVPB ONE ×3 (00:32→17:32)
[2018-02-19] MEDS: PIPERACILLIN/TAZOB 3.375 GM 3.375 GM in DEXTROSE 5%-WATER - 50 ML IVPB SCH ×3 (01:04→18:47)
[2018-02-19] MEDS: LEVOTHYROXINE NA 100 MCG TABLET (FP) PO SCH (06:17)
[2018-02-19] MEDS: CLINDAMYCIN HCL 150 MG CAPSULE (FP) PO SCH ×3 (06:17→21:35)
[2018-02-19 07:54] LABS: BASO % 0.4 % (0-2.0); EOS % 2.2 % (0-4.5); HEMATOCRIT 34.4 % (32.4-45.2); HEMOGLOBIN 11.4 GM/dL (10.7-15.3); LYMPH % 31.5 % (8-40); MCH 28.3 pg (25.7-33.7); MCHC 33.1 g/dl (32.0-36.0); MEAN CELL VOLUME 85.7 fl (80-96); MONO % 4.4 % (3.8-10.2); NEUT % 61.5 % (42.8-82.8); PLATELET COUNT 272 K/MM3 (134-434); RBC 4.01 M/mm3 (3.60-5.2); RDW 14.9 % (11.6-15.6); WHITE BLOOD COUNT 8.6 K/mm3 (4.0-10.0)
[2018-02-19 08:48] LABS: ALBUMIN 2.9 g/dl (3.4-5.0); ALK PHOS 60 U/L (45-117); ANION GAP 6 MMOL/L (8-16); BILIRUBIN,TOTAL 0.3 mg/dL (0.2-1); BLOOD UREA NITROGEN 10 mg/dL (7-18); CALCIUM 8.8 mg/dL (8.5-10.1); CHLORIDE 107 mmol/L (98-107); CO2 28 mmol/L (21-32); CREATININE 0.5 mg/dL (0.55-1.3); GLUCOSE,RANDOM 84 mg/dL (74-106); POTASSIUM 4.3 mmol/L (3.5-5.1); SGOT/AST 17 U/L (15-37); SGPT/ALT 16 U/L (13-61); SODIUM 141 mmol/L (136-145); TOT PROT 7.2 g/dl (6.4-8.2)
[2018-02-19] MEDS: POLYETHYLENE GLYCOL 3350 119 GM BTL PO SCH ×2 (10:00→21:34)
[2018-02-19] MEDS: TAMOXIFEN CITRATE 10 MG TABLET PO SCH (11:00)
--- NOTE | 2018-02-19 11:05 | PN ---
Progress Note, Physician History of Present Illness: stable no new issues - Current Medication List Current Medications: Active Medications Clindamycin HCl (Cleocin -) 300 mg PO TID [facility] Last Admin: 02/19/18 06:17 Dose: 300 mg Enoxaparin Sodium (Lovenox -) 40 mg SQ DAILY [facility] Last Admin: 02/18/18 10:59 Dose: 40 mg Piperacillin Sod/Tazobactam (Sod 3.375 gm/ Dextrose) 50 mls @ 100 mls/hr IVPB Q8H-IV [facility]; Protocol Last Admin: 02/19/18 01:04 Dose: 100 mls/hr Levothyroxine Sodium (Synthroid -) 100 mcg PO DAILY@0700 [facility] Last Admin: 02/19/18 06:17 Dose: 100 mcg Pantoprazole Sodium (Protonix -) 40 mg PO DAILY [facility] Last Admin: 02/18/18 10:59 Dose: 40 mg Polyethylene Glycol (Miralax (For Daily Use) -) 17 gm PO BID [facility] Last Admin: 02/18/18 21:59 Dose: 17 grams Senna (Senna -) 2 tab PO HS [facility] Last Admin: 02/18/18 21:39 Dose: 2 tab Tamoxifen Citrate (Tamoxifen Citrate) 20 mg PO DAILY [facility] Last Admin: 02/18/18 11:00 Dose: 20 mg - Objective Vital Signs: Vital Signs Temperature 97.8 F 02/19/18 06:33 Pulse Rate 73 02/19/18 06:33 Respiratory Rate 18 02/19/18 06:33 Blood Pressure 113/60 02/19/18 06:33 O2 Sat by Pulse Oximetry (%) 97 02/18/18 21:00 Constitutional: Yes: No Distress, Calm Respiratory: Yes: Regular, CTA Bilaterally Gastrointestinal: Yes: Normal Bowel Sounds, Soft Genitourinary: Yes: Chopra Present (suprapubic) Musculoskeletal: Yes: WNL Extremities: Yes: Other Neurological: Yes: Alert Psychiatric: Yes: Alert Labs: CBC, BMP 02/19/18 06:30 02/19/18 06:30 INR, PTT INR 0.98 (0.83-1.09) 02/14/18 04:00 Assessment/Plan Problem List - Problems (1) Suprapubic catheter dysfunction Code(s): T83.010A - BREAKDOWN (MECHANICAL) OF CYSTOSTOMY CATHETER, INIT ENCNTR Qualifiers: Encounter type: initial encounter Qualified Code(s): T83.010A - Breakdown ( mechanical) of cystostomy catheter, initial encounter (2) Fever Code(s): R50.9 - FEVER, UNSPECIFIED Qualifiers: Fever type: due to other condition Qualified Code(s): R50.81 - Fever presenting with conditions classified elsewhere (3) Fecal impaction Code(s): K56.41 - FECAL IMPACTION (4) Dehydration Code(s): E86.0 - DEHYDRATION (5) Nephrolithiasis Code(s): N20.0 - CALCULUS OF KIDNEY (6) Neurogenic bladder Code(s): N31.9 - NEUROMUSCULAR DYSFUNCTION OF BLADDER, UNSPECIFIED (7) Hypothyroid Code(s): E03.9 - HYPOTHYROIDISM, UNSPECIFIED (8) GERD (gastroesophageal reflux disease) Code(s): K21.9 - GASTRO-ESOPHAGEAL REFLUX DISEASE WITHOUT ESOPHAGITIS Qualifiers: Esophagitis presence: without esophagitis Qualified Code(s): K21.9 - Gastro -esophageal reflux disease without esophagitis (9) Breast CA Code(s): C50.919 - MALIGNANT NEOPLASM OF UNSP SITE OF UNSPECIFIED FEMALE BREAST (10) Multiple sclerosis Code(s): G35 - MULTIPLE SCLEROSIS plan cx report noted patient going to get urology procedure on tuesday keep patient on zosyn 3.375 mg every 8hrly untill patient has the procedure and then post op one day and if everything goes well can stop it continue clinda for another 7 days
[2018-02-19] MEDS: PANTOPRAZOLE 40 MG TABLET (FP) PO SCH (13:15)
[2018-02-19] MEDS: ENOXAPARIN NA (PORCINE) 40 MG/0.4 ML DISP.SYRIN SQ SCH (13:20)
--- NOTE | 2018-02-19 14:15 | PN ---
Progress Note, Physician Chief Complaint: Reamined afebrile no new complaints History of Present Illness: 67F with a PMH of MS, paraplegia, neuromuscular dysfunction of bladder s/p suprapubic catheter, anemia, UTI, dysphagia, muscle spasm,found to a UTI - Current Medication List Current Medications: Active Medications Clindamycin HCl (Cleocin -) 300 mg PO TID [facility] Last Admin: 02/19/18 06:17 Dose: 300 mg Enoxaparin Sodium (Lovenox -) 40 mg SQ DAILY [facility] Last Admin: 02/18/18 10:59 Dose: 40 mg Piperacillin Sod/Tazobactam (Sod 3.375 gm/ Dextrose) 50 mls @ 100 mls/hr IVPB Q8H-IV [facility]; Protocol Last Admin: 02/19/18 01:04 Dose: 100 mls/hr Levothyroxine Sodium (Synthroid -) 100 mcg PO DAILY@0700 [facility] Last Admin: 02/19/18 06:17 Dose: 100 mcg Pantoprazole Sodium (Protonix -) 40 mg PO DAILY [facility] Last Admin: 02/18/18 10:59 Dose: 40 mg Polyethylene Glycol (Miralax (For Daily Use) -) 17 gm PO BID [facility] Last Admin: 02/18/18 21:59 Dose: 17 grams Senna (Senna -) 2 tab PO HS [facility] Last Admin: 02/18/18 21:39 Dose: 2 tab Tamoxifen Citrate (Tamoxifen Citrate) 20 mg PO DAILY [facility] Last Admin: 02/18/18 11:00 Dose: 20 mg - Objective Vital Signs: Vital Signs Temperature 97.8 F 02/19/18 06:33 Pulse Rate 73 02/19/18 06:33 Respiratory Rate 18 02/19/18 06:33 Blood Pressure 113/60 02/19/18 06:33 O2 Sat by Pulse Oximetry (%) 97 02/18/18 21:00 Middle aged F oriented to self not in distress HEENT: Mm moist, no anemia, PERRLA EOMI NECK; No JVD No Bruit CHEST: CTA B/L CVS: S1S2 R no m/g/r ABD: suprapubic cathter at place, no distention, non tender Bs + EXT: No edema, 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, no interval changes Labs: CBC, BMP 02/19/18 06:30 02/19/18 06:30 INR, PTT INR 0.98 (0.83-1.09) 02/14/18 04:00 Microbiology 02/14/18 04:00 Blood - Peripheral Venous Blood Culture - Final NO GROWTH AFTER 5 DAYS INCUBATION 02/14/18 04:00 Blood - Peripheral Venous Blood Culture - Final NO GROWTH AFTER 5 DAYS INCUBATION 02/14/18 06:13 Thigh - Right Gram Stain - Final 02/14/18 06:13 Thigh - Right Wound Culture - Preliminary S Aureus Enterococcus Faecalis Beta Hemolytic Strep 02/15/18 09:21 Catheter Tip - Chopra Catheter Foreign Body Culture - Final Providencia Stuartii Enterococcus Faecalis Problem List - Problems (1) Suprapubic catheter dysfunction Assessment/Plan: on IV abx , cathter chnged in the Ed Code(s): T83.010A - BREAKDOWN (MECHANICAL) OF CYSTOSTOMY CATHETER, INIT ENCNTR Qualifiers: Encounter type: initial encounter Qualified Code(s): T83.010A - Breakdown ( mechanical) of cystostomy catheter, initial encounter (2) UTI (urinary tract infection) Assessment/Plan: Cont current abx Code(s): N39.0 - URINARY TRACT INFECTION, SITE NOT SPECIFIED Qualifiers: Urinary tract infection type: catheter-associated UTI Indwelling urinary catheter type: cystostomy catheter Encounter type: initial encounter Qualified Code(s): T83.510A - Infection and inflammatory reaction due to cystostomy catheter, initial encounter; N39.0 - Urinary tract infection, site not specified (3) Hypothyroid Code(s): E03.9 - HYPOTHYROIDISM, UNSPECIFIED (4) GERD (gastroesophageal reflux disease) Assessment/Plan: on PPI Code(s): K21.9 - GASTRO-ESOPHAGEAL REFLUX DISEASE WITHOUT ESOPHAGITIS Qualifiers: Esophagitis presence: without esophagitis Qualified Code(s): K21.9 - Gastro -esophageal reflux disease without esophagitis (5) Breast CA Assessment/Plan: on tamoxifen Code(s): C50.919 - MALIGNANT NEOPLASM OF UNSP SITE OF UNSPECIFIED FEMALE BREAST (6) Multiple sclerosis Assessment/Plan: chronic Code(s): G35 - MULTIPLE SCLEROSIS
[2018-02-19] MEDS: SENNOSIDES 8.6MG TABLET (FP) PO SCH (21:34)
[2018-02-20] MEDS ORDERED: DEXTROSE 5%-WATER - 50 ML IVPB ONE ×3 (01:56→17:27)
[2018-02-20] MEDS ORDERED: PIPERACILLIN/TAZOBACTAM 3.375 GM VIAL IVPB ONE ×3 (01:56→17:27)
[2018-02-20] MEDS: PIPERACILLIN/TAZOB 3.375 GM 3.375 GM in DEXTROSE 5%-WATER - 50 ML IVPB SCH ×2 (02:40→10:19)
[2018-02-20] MEDS: LEVOTHYROXINE NA 100 MCG TABLET (FP) PO SCH (06:05)
[2018-02-20] MEDS: CLINDAMYCIN HCL 150 MG CAPSULE (FP) PO SCH ×2 (06:31→13:57)
[2018-02-20 07:27] LABS: EOS % 2.7 % (0-4.5); HEMATOCRIT 34.2 % (32.4-45.2); HEMOGLOBIN 11.2 GM/dL (10.7-15.3); LYMPH % 46.2 % (8-40); MCH 28.2 pg (25.7-33.7); MCHC 32.8 g/dl (32.0-36.0); MEAN PLT VOLUME 9.3 fl (7.5-11.1); MONO % 5.4 % (3.8-10.2); NEUT % 44.7 % (42.8-82.8); PLATELET COUNT 275 K/MM3 (134-434); RBC 3.98 M/mm3 (3.60-5.2); RDW 14.9 % (11.6-15.6); WHITE BLOOD COUNT 7.1 K/mm3 (4.0-10.0)
[2018-02-20 08:38] LABS: ANION GAP 7 MMOL/L (8-16); BLOOD UREA NITROGEN 10 mg/dL (7-18); CALCIUM 8.8 mg/dL (8.5-10.1); CHLORIDE 107 mmol/L (98-107); CO2 28 mmol/L (21-32); CREATININE 0.4 mg/dL (0.55-1.3); GLUCOSE,RANDOM 77 mg/dL (74-106); POTASSIUM 4.1 mmol/L (3.5-5.1); SODIUM 141 mmol/L (136-145)
[2018-02-20] MEDS: PANTOPRAZOLE 40 MG TABLET (FP) PO SCH (10:18)
[2018-02-20] MEDS: ENOXAPARIN NA (PORCINE) 40 MG/0.4 ML DISP.SYRIN SQ SCH (10:18)
[2018-02-20] MEDS ORDERED: PT OWN MED DRAWER 7, Y5N ONE (10:27)
[2018-02-20] MEDS: POLYETHYLENE GLYCOL 3350 119 GM BTL PO SCH (10:30)
[2018-02-20] MEDS: TAMOXIFEN CITRATE 10 MG TABLET PO SCH (10:31)
--- NOTE | 2018-02-20 11:09 | PN ---
Progress Note, Physician History of Present Illness: no new issues patient for procedure tomorrow - Current Medication List Current Medications: Active Medications Clindamycin HCl (Cleocin -) 300 mg PO TID [facility] Last Admin: 02/20/18 06:31 Dose: 300 mg Enoxaparin Sodium (Lovenox -) 40 mg SQ DAILY [facility] Last Admin: 02/20/18 10:18 Dose: 40 mg Piperacillin Sod/Tazobactam (Sod 3.375 gm/ Dextrose) 50 mls @ 100 mls/hr IVPB Q8H-IV [facility]; Protocol Last Admin: 02/20/18 10:19 Dose: 100 mls/hr Levothyroxine Sodium (Synthroid -) 100 mcg PO DAILY@0700 [facility] Last Admin: 02/20/18 06:05 Dose: 100 mcg Pantoprazole Sodium (Protonix -) 40 mg PO DAILY [facility] Last Admin: 02/20/18 10:18 Dose: 40 mg Polyethylene Glycol (Miralax (For Daily Use) -) 17 gm PO BID [facility] Last Admin: 02/20/18 10:30 Dose: 17 grams Senna (Senna -) 2 tab PO HS [facility] Last Admin: 02/19/18 21:34 Dose: 2 tab Tamoxifen Citrate (Tamoxifen Citrate) 20 mg PO DAILY [facility] Last Admin: 02/20/18 10:31 Dose: 20 mg - Objective Vital Signs: Vital Signs Temperature 97.9 F 02/20/18 06:06 Pulse Rate 79 02/20/18 06:06 Respiratory Rate 18 02/20/18 06:06 Blood Pressure 94/62 02/20/18 06:06 O2 Sat by Pulse Oximetry (%) 97 02/19/18 21:00 Constitutional: Yes: No Distress, Calm Cardiovascular: Yes: Regular Rate and Rhythm Respiratory: Yes: Regular, CTA Bilaterally Gastrointestinal: Yes: Normal Bowel Sounds, Soft Genitourinary: Yes: Chopra Present Musculoskeletal: Yes: WNL Extremities: Yes: WNL Neurological: Yes: Alert Labs: CBC, BMP 02/20/18 06:15 02/20/18 06:15 INR, PTT INR 0.98 (0.83-1.09) 02/14/18 04:00 Assessment/Plan Problem List - Problems (1) Suprapubic catheter dysfunction Code(s): T83.010A - BREAKDOWN (MECHANICAL) OF CYSTOSTOMY CATHETER, INIT ENCNTR Qualifiers: Encounter type: initial encounter Qualified Code(s): T83.010A - Breakdown ( mechanical) of cystostomy catheter, initial encounter (2) Fever Code(s): R50.9 - FEVER, UNSPECIFIED Qualifiers: Fever type: due to other condition Qualified Code(s): R50.81 - Fever presenting with conditions classified elsewhere (3) Fecal impaction Code(s): K56.41 - FECAL IMPACTION (4) Dehydration Code(s): E86.0 - DEHYDRATION (5) Nephrolithiasis Code(s): N20.0 - CALCULUS OF KIDNEY (6) Neurogenic bladder Code(s): N31.9 - NEUROMUSCULAR DYSFUNCTION OF BLADDER, UNSPECIFIED (7) Hypothyroid Code(s): E03.9 - HYPOTHYROIDISM, UNSPECIFIED (8) GERD (gastroesophageal reflux disease) Code(s): K21.9 - GASTRO-ESOPHAGEAL REFLUX DISEASE WITHOUT ESOPHAGITIS Qualifiers: Esophagitis presence: without esophagitis Qualified Code(s): K21.9 - Gastro -esophageal reflux disease without esophagitis (9) Breast CA Code(s): C50.919 - MALIGNANT NEOPLASM OF UNSP SITE OF UNSPECIFIED FEMALE BREAST (10) Multiple sclerosis Code(s): G35 - MULTIPLE SCLEROSIS plan cx report noted patient going to get urology procedure on tuesday keep patient on zosyn 3.375 mg every 8hrly untill patient has the procedure and then post op one day and if everything goes well can stop it continue clinda for another 7 days
--- NOTE | 2018-02-20 11:41 | DS ---
Physical Examination Vital Signs: Vital Signs Temperature 97.9 F 02/20/18 06:06 Pulse Rate 79 02/20/18 06:06 Respiratory Rate 18 02/20/18 06:06 Blood Pressure 94/62 02/20/18 06:06 O2 Sat by Pulse Oximetry (%) 97 02/19/18 21:00 Constitutional: Yes: Well Nourished, No Distress, Calm Cardiovascular: Yes: WNL, Regular Rate and Rhythm Respiratory: Yes: Regular, CTA Bilaterally Gastrointestinal: Yes: WNL, Normal Bowel Sounds, Soft, Abdomen, Obese. No: Distention, Tenderness Renal/: Yes: Other (supra pubic draining) Edema: No Neurological: Yes: Alert, Confusion Psychiatric: Yes: Alert Labs: CBC, BMP 02/20/18 06:15 02/20/18 06:15 Discharge Summary Reason For Visit: SEPSIS Current Active Problems Fecal impaction (Acute) Fever (Acute) Hydronephrosis (Acute) MRSA (methicillin resistant Staphylococcus aureus) (Acute) Suprapubic catheter dysfunction (Acute) UTI (urinary tract infection) (Acute) Hospital Course: is a 67 year old female who came in from SNF for evaluation of fevers, suprapubic obstruction. Pt found to have multiple bladder/renal stones, nephrolithiasis, hydronephrosis, fecal impaction, and dehydration. Suprapubic catheter changed by urology and started draining without issues, per urology, stent/ bladder lithotripsy scheduled for 01/21. UC/blood cultures negative. Payal- suprapubic culture grew providencia stuartii, enterococcus faecalis. Pt received 7 days of Zosyn, Clindamycin. To continue antibx per ID until the procedure and ID to reassess pt in SNF. Fecal impaction improved s/p enemas, bowel regimen, considering limited mobility, recommend weekly DREs to prevent further impaction/obstruction. Pt otherwise without complaints, vitals stable, labs unremarkable. at bedside, explained plan. Pt is medically stable for discharge to SNF. Pt have outpt stent/lithotripsy tomorrow. 32 minutes spent in discharge planning Condition: Stable - Instructions Diet, Activity, Other Instructions: STENT/BLADDER LITHOTRIPSY ON TUESDAY, outpt adequate hydration , po liquids , pureed diet MIRALAX, COLACE, SENNA assess for fecal impaction via MANUEL once a week keep patient on zosyn 3.375 mg every 8hrly untill patient has the procedure and then post op one day and if everything goes well can stop it continue clinda for another 6 days Referrals: Kamran Cardenas MD [Primary Care Provider] - Madelyn Coombs MD [Staff Physician] - 02/21/18 Disposition: [facility] - Home Medications Comprehensive Discharge Medication List: Ambulatory Orders Acetaminophen 650 mg PO Q4H PRN 03/28/16 Cholecalciferol (Vitamin D3) [Vitamin D3] 1,000 unit PO DAILY 03/28/16 Levothyroxine [Synthroid -] 100 mcg PO DAILY 03/28/16 Multivitamin [Poly-Vitamin] 1 each PO DAILY 03/28/16 Tamoxifen Citrate 20 mg PO DAILY 03/28/16 Docusate Sodium [Colace -] 100 mg PO HS 06/07/16 Lactobacillus Acidophilus [Bacid -] 1 tab PO DAILY tab 06/11/16 Ascorbic Acid [Vitamin C] 500 mg PO DAILY 06/09/17 Enoxaparin Sodium 40 mg SQ DAILY 06/09/17 Ferrous Sulfate *Liquid* [Feosol *Liquid*] 300 mg PO DAILY 06/09/17 Zinc Sulfate 220 mg PO BID 06/09/17 Calcium Carbonate/Vitamin D3 [Oyster Shell 500-Vit D3 200 Tb] 1 each PO DAILY Interferon Beta-1A [Avonex] 30 mcg IM WEEKLY 02/13/18 Pantoprazole Sodium 40 mg PO DAILY 02/13/18 Silver Sulfadiazine 1% Top Cr [Silvadene -] 1 applic TP DAILY 02/13/18 Clindamycin [Cleocin -] 300 mg PO TID capsule 02/20/18 Piperacillin/Tazob 3.375 gm [Zosyn -] 3.375 gm IVPB Q8H-IV vial 02/20/18 Polyethylene Glycol 3350 [Miralax 119 gm Btl -] 17 gm PO BID bottle 02/20/18 Sennosides [Senna -] 2 tab PO HS tablet 02/20/18
[2018-02-20 14:48] VITALS: BP 108/73; PULSE 80; TEMP 98.2
== END 2018-02-20 18:20 | DRG 445 ==
LOC: JER 22:45 → JERBED 02-14 03:43 → J7W 02-14 12:19
PROVIDERS: ADMIT Internal Medicine; ATTEND Internal Medicine
PROC: 0TPB70Z Removal of Drainage Device from Bladder, Via Natural or Artificial Opening (ICD-10-PCS; principal; 2018-02-15)
PROC: 0T9B70Z Drainage of Bladder with Drainage Device, Via Natural or Artificial Opening (ICD-10-PCS; 2018-02-15)
DX: T83.010A Breakdown (mechanical) of cystostomy catheter, initial encounter (principal); R50.9 Fever, unspecified; K56.41 Fecal impaction; E86.0 Dehydration; N31.9 Neuromuscular dysfunction of bladder, unspecified; E03.9 Hypothyroidism, unspecified; K21.9 Gastro-esophageal reflux disease without esophagitis; C50.919 Malignant neoplasm of unspecified site of unspecified female breast; G35 Multiple sclerosis; A49.02 Methicillin resistant Staphylococcus aureus infection, unspecified site; N39.0 Urinary tract infection, site not specified; R33.9 Retention of urine, unspecified; Y83.9 Surgical procedure, unspecified as the cause of abnormal reaction of the patient, or of later complication, without mention of misadventure at the time of the procedure; N21.0 Calculus in bladder; F03.90 Unspecified dementia, unspecified severity, without behavioral disturbance, psychotic disturbance, mood disturbance, and anxiety; N13.2 Hydronephrosis with renal and ureteral calculous obstruction; G82.20 Paraplegia, unspecified; R13.10 Dysphagia, unspecified
CPT/HCPCS: 36415; 71045-TC-FY; 74018-TC-FY; 74177-TC; 76775-TC; 76856-TC; 80048; 80053; 81003; 81015; 82803; 83605; 83735; 84100; 84484; 85025; 85610; 85730; 87040; 87070; 87086; 87186; 87205; 93005; 93010; 99285-25; J7030

== ENCOUNTER 2018-03-08 11:00 | Inpatient (IN) | payer OTHER ==
[2018-03-08] MEDS ORDERED: SUCCINYLCHOLINE CHLORIDE 200 MG/10 ML VIAL ONE (12:31)
[2018-03-08] MEDS ORDERED: PROPOFOL 20 ML ONE ×2 (12:31)
[2018-03-08] MEDS ORDERED: LIDOCAINE HCL 2% 100 MG/5 ML DISP.SYRIN ONE (12:33)
[2018-03-08] MEDS ORDERED: AMPICILLIN NA/SULBACTAM NA 1.5 GM/100 ML PRE-DOCKED IVPB ONE (13:22)
--- NOTE | 2018-03-08 14:15 | OP ---
Operative Note - Note: Operative Date: 03/08/18 Pre-Operative Diagnosis: Urosepsis, Bladder CALCULI Operation: CYSTO Laser litho bladder calculli Findings: Patient is severely contracted. Extremely difficult to negotiate the the urethra and bladder. Large Bladder calculi noted which was broken into smaller pieces Surgeon: Madelyn Coombs Anesthesia: General Specimens Removed: Bladder calculi
[2018-03-08] MEDS ORDERED: ONDANSETRON 4 MG/2 ML VIAL IVPUSH PRN (14:26)
[2018-03-08] MEDS ORDERED: oxyCODONE HCL 5 MG TABLET PO PRN (14:26)
[2018-03-08] MEDS ORDERED: LIDOCAINE HCL 2% JELLY 10 ML CARTRIDGE ONE (14:41)
--- NOTE | 2018-03-08 16:01 | HP ---
Admitting History and Physical - Primary Care Physician PCP: Kamran Cardenas - Admission Chief Complaint: lithotripsy History of Present Illness: 67 year old female pmh multiple sclerosis, neurogenic bladder w/ suprapubic catheter, resistant UTI's, and paraplegia came in from SNF s/p cystoscopy Laser litho for bladder calculi today with urology. We were asked to evaluate by urology to assess for signs of sepsis. During my interaction, pt pleasant, reports she feels good, denies any pain. Pt cannot provide further history 2/2 dementia. 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 Gastrointestinal: Yes: GERD Renal/: Yes: Neurogenic Bladder, Renal Calculi, UTI Heme/Onc: No: Anemia, B12 Deficiency, Bleeding Disorder, Cancer, Current Chemotherapy, Current Radiation Therapy, Hemochromatosis, Hypercoaguable State, Myeloproliferative Synd, Sickle Cell Disease, Sickle Cell Trait, Thrombocytopenia, Other Infectious Disease: Yes: MRSA Rheumatology: Yes: Other (multiple sclerosis) Endocrine: Yes: Hypothyroidism - Past Surgical History Past Surgical History: Yes: Mastectomy - Smoking History Smoking history: Unknown if ever smoked Have you smoked in the past 12 months: No Aproximately how many cigarettes per day: 0 - Alcohol/Substance Use Hx Alcohol Use: No History of Substance Use: reports: None - Social History ADL: Support Services History of Recent Travel: No Home Medications - Allergies Allergies/Adverse Reactions: Allergies Allergy/AdvReac Type Severity Reaction Status Date / Time No Known Allergies Allergy Verified 03/07/18 14:12 - Home Medications Home Medications: Ambulatory Orders Acetaminophen 650 mg PO Q4H PRN 03/28/16 Cholecalciferol (Vitamin D3) [Vitamin D3] 1,000 unit PO DAILY 03/28/16 Levothyroxine [Synthroid -] 100 mcg PO DAILY 03/28/16 Multivitamin [Poly-Vitamin] 1 each PO DAILY 03/28/16 Tamoxifen Citrate 20 mg PO DAILY 03/28/16 Docusate Sodium [Colace -] 100 mg PO HS 06/07/16 Lactobacillus Acidophilus [Bacid -] 1 tab PO DAILY tab 06/11/16 Ascorbic Acid [Vitamin C] 500 mg PO DAILY 06/09/17 Enoxaparin Sodium 40 mg SQ DAILY 06/09/17 Ferrous Sulfate *Liquid* [Feosol *Liquid*] 300 mg PO DAILY 06/09/17 Zinc Sulfate 220 mg PO BID 06/09/17 Calcium Carbonate/Vitamin D3 [Oyster Shell 500-Vit D3 200 Tb] 1 each PO DAILY Interferon Beta-1A [Avonex] 30 mcg IM WEEKLY 02/13/18 Pantoprazole Sodium 40 mg PO DAILY 02/13/18 Polyethylene Glycol 3350 [Miralax 119 gm Btl -] 17 gm PO BID bottle 02/20/18 Sennosides [Senna -] 2 tab PO HS tablet 02/20/18 Review of Systems Unable to obtain ROS, reason: due to dementia Physical Examination Vital Signs: Vital Signs Temperature 97.7 F 03/08/18 11:13 Pulse Rate 92 H 03/08/18 11:13 Respiratory Rate 16 03/08/18 11:13 Blood Pressure 127/70 03/08/18 11:13 O2 Sat by Pulse Oximetry (%) 96 03/08/18 11:13 Constitutional: Yes: Well Nourished, No Distress, Calm Cardiovascular: Yes: WNL, Regular Rate and Rhythm. No: Murmur, Rub Respiratory: Yes: WNL, Regular, CTA Bilaterally. No: SOB, Tachypnea, Wheezes Gastrointestinal: Yes: WNL, Normal Bowel Sounds, Soft. No: Distention, Tenderness Renal/: Yes: Other (suprapubic) Edema: No Integumentary: Yes: Pressure Ulcer (R thigh, chronic) Neurological: Yes: Alert, Confusion Psychiatric: Yes: Alert Assessment/Plan (1) S/P cystoscopy Assessment/Plan: POD 1 cystoscopy w/ bladder calculi lithotripsy vitals stable UA/UC, BC ordered cbc/bmp ordered Zosyn post op per ID monitor for signs of sepsis , await work up ID consult pending Code(s): Z98.890 - OTHER SPECIFIED POSTPROCEDURAL STATES (2) Nephrolithiasis Assessment/Plan: multiple renal/ureteral calculi as above Code(s): N20.0 - CALCULUS OF KIDNEY (3) Neurogenic bladder Assessment/Plan: s/p suprapubic catheter Code(s): N31.9 - NEUROMUSCULAR DYSFUNCTION OF BLADDER, UNSPECIFIED (4) Hypothyroid Assessment/Plan: stable continue synthroid Code(s): E03.9 - HYPOTHYROIDISM, UNSPECIFIED (5) GERD (gastroesophageal reflux disease) Assessment/Plan: stable continue protonix Code(s): K21.9 - GASTRO-ESOPHAGEAL REFLUX DISEASE WITHOUT ESOPHAGITIS Qualifiers: Esophagitis presence: without esophagitis Qualified Code(s): K21.9 - Gastro -esophageal reflux disease without esophagitis (6) Breast CA Assessment/Plan: continue tamoxifen Code(s): C50.919 - MALIGNANT NEOPLASM OF UNSP SITE OF UNSPECIFIED FEMALE BREAST (7) Multiple sclerosis Assessment/Plan: chronic, w/ dementia, neurogenic bladder pureed diet Code(s): G35 - MULTIPLE SCLEROSIS Dispo: SNF when cleared by ID and urology
[2018-03-08] MEDS ORDERED: ACETAMINOPHEN 325 MG TABLET (FP) PO PRN (16:10)
[2018-03-08] MEDS ORDERED: ACETAMINOPHEN INJECTION 100 ML IVPB ONE (17:43)
[2018-03-08] MEDS ORDERED: ACETAMINOPHEN 1000 MG/100 ML VIAL (NON FORMULARY) IVPB ONE (18:15)
[2018-03-08] MEDS: LACTATED RINGERS SOLUTION 1,000 ML IV SCH (19:45)
[2018-03-08] MEDS ORDERED: DEXTROSE 5%-WATER - 50 ML IVPB ONE (22:58)
[2018-03-08] MEDS ORDERED: PIPERACILLIN/TAZOBACTAM 3.375 GM VIAL IVPB ONE (22:58)
[2018-03-08] MEDS: POLYETHYLENE GLYCOL 3350 119 GM BTL PO SCH (23:04)
[2018-03-08] MEDS: SENNOSIDES 8.6MG TABLET (FP) PO SCH (23:05)
[2018-03-08] MEDS: PIPERACILLIN/TAZOB 3.375 GM 3.375 GM in DEXTROSE 5%-WATER - 50 ML IVPB SCH (23:05)
[2018-03-09] MEDS ORDERED: PIPERACILLIN/TAZOBACTAM 3.375 GM VIAL IVPB ONE ×3 (01:23→17:13)
[2018-03-09] MEDS ORDERED: DEXTROSE 5%-WATER - 50 ML IVPB ONE ×3 (01:23→17:13)
[2018-03-09] MEDS: PIPERACILLIN/TAZOB 3.375 GM 3.375 GM in DEXTROSE 5%-WATER - 50 ML IVPB SCH ×3 (01:26→17:16)
[2018-03-09 03:34] LABS: URINE APPEARANCE CLOUDY; URINE BILIRUBIN NEGATIVE (<2.0 mg/dL); URINE COLOR DKYELLOW; URINE GLUCOSE (UA) NEGATIVE (NEGATIVE); URINE KETONE NEGATIVE (NEGATIVE); URINE LEUK ESTERASE 3+ (NEGATIVE); URINE NITRITE NEGATIVE (NEGATIVE); URINE PROTEIN 1+ (NEGATIVE); URINE UROBILINOGEN NEGATIVE mg/dL (0.2-1.0)
[2018-03-09 03:40] LABS: EPI CELLS MODERATE /HPF (FEW); URINE BACTERIA RARE /hpf (NONE SEEN); URINE MUCUS RARE; YEAST FEW
[2018-03-09] MEDS: LEVOTHYROXINE NA 100 MCG TABLET (FP) PO SCH (06:09)
[2018-03-09] MEDS: LACTATED RINGERS SOLUTION 1,000 ML IV SCH (06:12)
[2018-03-09 07:52] LABS: BASO % 0.4 % (0-2.0); EOS % 3.2 % (0-4.5); HEMATOCRIT 33.8 % (32.4-45.2); HEMOGLOBIN 10.8 GM/dL (10.7-15.3); LYMPH % 35.9 % (8-40); MCH 27.9 pg (25.7-33.7); MCHC 31.8 g/dl (32.0-36.0); MEAN CELL VOLUME 87.7 fl (80-96); MEAN PLT VOLUME 9.5 fl (7.5-11.1); NEUT % 55.5 % (42.8-82.8); PLATELET COUNT 246 K/MM3 (134-434); RBC 3.86 M/mm3 (3.60-5.2); RDW 15.4 % (11.6-15.6); WHITE BLOOD COUNT 8.8 K/mm3 (4.0-10.0)
[2018-03-09 08:08] LABS: ALBUMIN 2.5 g/dl (3.4-5.0); ALK PHOS 52 U/L (45-117); ANION GAP 6 MMOL/L (8-16); BILIRUBIN,TOTAL 0.4 mg/dL (0.2-1); BLOOD UREA NITROGEN 13 mg/dL (7-18); CALCIUM 8.5 mg/dL (8.5-10.1); CHLORIDE 109 mmol/L (98-107); CO2 28 mmol/L (21-32); CREATININE 0.3 mg/dL (0.55-1.3); GLUCOSE,RANDOM 90 mg/dL (74-106); MAGNESIUM 2.2 mg/dL (1.8-2.4); PHOSPHOROUS 3.9 mg/dL (2.5-4.9); POTASSIUM 3.6 mmol/L (3.5-5.1); SGOT/AST 16 U/L (15-37); SGPT/ALT 13 U/L (13-61); SODIUM 143 mmol/L (136-145); TOT PROT 6.4 g/dl (6.4-8.2)
[2018-03-09] MEDS ORDERED: PT OWN MED DRAWER 7, Y5N ONE (10:14)
[2018-03-09] MEDS: POLYETHYLENE GLYCOL 3350 119 GM BTL PO SCH ×2 (10:26→21:16)
[2018-03-09] MEDS: ENOXAPARIN NA (PORCINE) 40 MG/0.4 ML DISP.SYRIN SQ SCH (10:26)
[2018-03-09] MEDS: PANTOPRAZOLE 40 MG TABLET (FP) PO SCH (10:26)
[2018-03-09] MEDS: TAMOXIFEN CITRATE 10 MG TABLET PO SCH (10:26)
--- NOTE | 2018-03-09 12:48 | PN ---
Progress Note, Physician Chief Complaint: Pt sitting in bed in no acute distress. appears comfortable. unable to obtain further due to dementia - Current Medication List Current Medications: Active Medications Acetaminophen (Tylenol -) 650 mg PO Q4H PRN PRN Reason: PAIN 1-3 Enoxaparin Sodium (Lovenox -) 40 mg SQ DAILY [facility] Last Admin: 03/09/18 10:26 Dose: 40 mg Fentanyl (Sublimaze Injection -) 25 mcg IVPUSH [id number] PRN PRN Reason: PAIN-PACU ORDER X 4 DOSES ONLY Lactated Ringer's (Lactated Ringers Solution) 1,000 mls @ 125 mls/hr IV ASDIR [facility] Last Admin: 03/09/18 06:12 Dose: 125 mls/hr Piperacillin Sod/Tazobactam (Sod 3.375 gm/ Dextrose) 50 mls @ 100 mls/hr IVPB Q8H-IV [facility]; Protocol Last Admin: 03/09/18 10:27 Dose: 100 mls/hr Levothyroxine Sodium (Synthroid -) 100 mcg PO 0700 [facility] Last Admin: 03/09/18 06:09 Dose: 100 mcg Ondansetron HCl (Zofran Injection) 4 mg IVPUSH Q6H PRN PRN Reason: NAUSEA AND/OR VOMITING Oxycodone HCl (Roxicodone -) 5 mg PO Q4H PRN PRN Reason: PAIN LEVEL 1-5 Pantoprazole Sodium (Protonix -) 40 mg PO DAILY [facility] Last Admin: 03/09/18 10:26 Dose: 40 mg Polyethylene Glycol (Miralax (For Daily Use) -) 17 gm PO BID [facility] Last Admin: 03/09/18 10:26 Dose: Not Given Senna (Senna -) 2 tab PO HS [facility] Last Admin: 03/08/18 23:05 Dose: 2 tab Tamoxifen Citrate (Tamoxifen Citrate) 20 mg PO DAILY [facility] Last Admin: 03/09/18 10:26 Dose: 20 mg - Objective Vital Signs: Vital Signs Temperature 98.8 F 03/09/18 10:00 Pulse Rate 84 03/09/18 10:00 Respiratory Rate 20 03/09/18 10:00 Blood Pressure 120/60 03/09/18 10:00 O2 Sat by Pulse Oximetry (%) 100 03/08/18 20:10 Constitutional: Yes: Well Nourished, No Distress, Calm Cardiovascular: Yes: WNL, Regular Rate and Rhythm. No: Murmur Respiratory: Yes: WNL, Regular, CTA Bilaterally. No: Accessory Muscle Use, SOB , Wheezes Gastrointestinal: Yes: WNL, Normal Bowel Sounds, Soft, Abdomen, Obese. No: Distention, Tenderness Genitourinary: Yes: Other (suprapubic) Edema: No Integumentary: Yes: Pressure Ulcer Neurological: Yes: Alert, Confusion Psychiatric: Yes: Alert Labs: CBC, BMP 03/09/18 06:30 03/09/18 06:30 Assessment/Plan (1) S/P cystoscopy Assessment/Plan: POD 1 cystoscopy w/ bladder calculi lithotripsy vitals stable UA +lek es,+rbc,+wbc- await urine/blood culture Zosyn post op per ID monitor for signs of sepsis , await work up ID following Code(s): Z98.890 - OTHER SPECIFIED POSTPROCEDURAL STATES (2) Nephrolithiasis Assessment/Plan: multiple renal/ureteral calculi as above Code(s): N20.0 - CALCULUS OF KIDNEY (3) Neurogenic bladder Assessment/Plan: s/p suprapubic catheter Code(s): N31.9 - NEUROMUSCULAR DYSFUNCTION OF BLADDER, UNSPECIFIED (4) Hypothyroid Assessment/Plan: stable continue synthroid Code(s): E03.9 - HYPOTHYROIDISM, UNSPECIFIED (5) GERD (gastroesophageal reflux disease) Assessment/Plan: stable continue protonix Code(s): K21.9 - GASTRO-ESOPHAGEAL REFLUX DISEASE WITHOUT ESOPHAGITIS Qualifiers: Esophagitis presence: without esophagitis Qualified Code(s): K21.9 - Gastro -esophageal reflux disease without esophagitis (6) Breast CA Assessment/Plan: continue tamoxifen Code(s): C50.919 - MALIGNANT NEOPLASM OF UNSP SITE OF UNSPECIFIED FEMALE BREAST (7) Multiple sclerosis Assessment/Plan: chronic, w/ dementia, neurogenic bladder pureed diet Code(s): G35 - MULTIPLE SCLEROSIS (8) 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
--- NOTE | 2018-03-09 13:54 | CON.ID ---
Consult Consult Specialty:: infectious diseases Referred by:: Reason for Consultation:: uti,kidney stones - History of Present Illness History of Present Illness: 67 year old female pmh multiple sclerosis, neurogenic bladder w/ suprapubic catheter, resistant UTI's, and paraplegia came in from [facility] s/p cystoscopy Laser litho for bladder calculi today with urology. patient has a known history of sepsis and has been on abx multiple times. 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 Gastrointestinal: Yes: GERD Renal/: Yes: Neurogenic Bladder, Renal Calculi, UTI Infectious Disease: Yes: MRSA Rheumatology: Yes: Other (multiple sclerosis) Endocrine: Yes: Hypothyroidism - Past Surgical History Past Surgical History: Yes: Mastectomy - Alcohol/Substance Use Hx Alcohol Use: No History of Substance Use: reports: None - Smoking History Smoking history: Unknown if ever smoked Have you smoked in the past 12 months: No Aproximately how many cigarettes per day: 0 - Social History ADL: Support Services History of Recent Travel: No Home Medications - Allergies Allergies/Adverse Reactions: Allergies Allergy/AdvReac Type Severity Reaction Status Date / Time No Known Allergies Allergy Verified 03/07/18 14:12 - Home Medications Home Medications: Ambulatory Orders Acetaminophen 650 mg PO Q4H PRN 03/28/16 Cholecalciferol (Vitamin D3) [Vitamin D3] 1,000 unit PO DAILY 03/28/16 Levothyroxine [Synthroid -] 100 mcg PO DAILY 03/28/16 Multivitamin [Poly-Vitamin] 1 each PO DAILY 03/28/16 Tamoxifen Citrate 20 mg PO DAILY 03/28/16 Docusate Sodium [Colace -] 100 mg PO HS 06/07/16 Lactobacillus Acidophilus [Bacid -] 1 tab PO DAILY tab 06/11/16 Ascorbic Acid [Vitamin C] 500 mg PO DAILY 06/09/17 Enoxaparin Sodium 40 mg SQ DAILY 06/09/17 Ferrous Sulfate *Liquid* [Feosol *Liquid*] 300 mg PO DAILY 06/09/17 Zinc Sulfate 220 mg PO BID 06/09/17 Calcium Carbonate/Vitamin D3 [Oyster Shell 500-Vit D3 200 Tb] 1 each PO DAILY Interferon Beta-1A [Avonex] 30 mcg IM WEEKLY 02/13/18 Pantoprazole Sodium 40 mg PO DAILY 02/13/18 Polyethylene Glycol 3350 [Miralax 119 gm Btl -] 17 gm PO BID bottle 02/20/18 Sennosides [Senna -] 2 tab PO HS tablet 02/20/18 Review of Systems - Review of Systems Constitutional: reports: No Symptoms Eyes: reports: No Symptoms HENT: reports: No Symptoms Neck: reports: No Symptoms Cardiovascular: reports: No Symptoms Respiratory: reports: No Symptoms Gastrointestinal: reports: No Symptoms Genitourinary: reports: No Symptoms Musculoskeletal: reports: No Symptoms Integumentary: reports: No Symptoms Neurological: reports: No Symptoms Endocrine: reports: No Symptoms Hematology/Lymphatic: reports: No Symptoms Psychiatric: reports: No Symptoms Physical Exam Vital Signs: Vital Signs Temperature 98.8 F 03/09/18 10:00 Pulse Rate 84 03/09/18 10:00 Respiratory Rate 20 03/09/18 10:00 Blood Pressure 120/60 03/09/18 10:00 O2 Sat by Pulse Oximetry (%) 100 03/08/18 20:10 Constitutional: Yes: No Distress, Calm, Other (bed bound) HENT: Yes: Atraumatic Cardiovascular: Yes: Regular Rate and Rhythm Gastrointestinal: Yes: Normal Bowel Sounds, Soft, Other Renal/: Yes: Other (suprapubic) Musculoskeletal: Yes: WNL Extremities: Yes: WNL Neurological: Yes: Alert, Other Psychiatric: Yes: Other Labs: CBC, BMP 03/09/18 06:30 03/09/18 06:30 Assessment/Plan Assessment/Plan (1) S/P cystoscopy Assessment/Plan: Code(s): Z98.890 - OTHER SPECIFIED POSTPROCEDURAL STATES (2) Nephrolithiasis Code(s): N20.0 - CALCULUS OF KIDNEY (3) Neurogenic bladder Code(s): N31.9 - NEUROMUSCULAR DYSFUNCTION OF BLADDER, UNSPECIFIED (4) Hypothyroid Code(s): E03.9 - HYPOTHYROIDISM, UNSPECIFIED (5) GERD (gastroesophageal reflux disease) Code(s): K21.9 - GASTRO-ESOPHAGEAL REFLUX DISEASE WITHOUT ESOPHAGITIS Qualifiers: Esophagitis presence: without esophagitis Qualified Code(s): K21.9 - Gastro -esophageal reflux disease without esophagitis (6) Breast CA Code(s): C50.919 - MALIGNANT NEOPLASM OF UNSP SITE OF UNSPECIFIED FEMALE BREAST (7) Multiple sclerosis Code(s): G35 - MULTIPLE SCLEROSIS knowing patient history and her repeated infection and patient a very high risk plan will start patient on zosyn close watch will at least give abx for 24 hours rest as per the team await for all cx
--- NOTE | 2018-03-09 13:59 | PN ---
Progress Note, Physician History of Present Illness: stable doing well no issues till now all cx are still pending - Current Medication List Current Medications: Active Medications Acetaminophen (Tylenol -) 650 mg PO Q4H PRN PRN Reason: PAIN 1-3 Enoxaparin Sodium (Lovenox -) 40 mg SQ DAILY [facility] Last Admin: 03/09/18 10:26 Dose: 40 mg Fentanyl (Sublimaze Injection -) 25 mcg IVPUSH [id number] PRN PRN Reason: PAIN-PACU ORDER X 4 DOSES ONLY Piperacillin Sod/Tazobactam (Sod 3.375 gm/ Dextrose) 50 mls @ 100 mls/hr IVPB Q8H-IV [facility]; Protocol Last Admin: 03/09/18 10:27 Dose: 100 mls/hr Levothyroxine Sodium (Synthroid -) 100 mcg PO 0700 [facility] Last Admin: 03/09/18 06:09 Dose: 100 mcg Ondansetron HCl (Zofran Injection) 4 mg IVPUSH Q6H PRN PRN Reason: NAUSEA AND/OR VOMITING Oxycodone HCl (Roxicodone -) 5 mg PO Q4H PRN PRN Reason: PAIN LEVEL 1-5 Pantoprazole Sodium (Protonix -) 40 mg PO DAILY [facility] Last Admin: 03/09/18 10:26 Dose: 40 mg Polyethylene Glycol (Miralax (For Daily Use) -) 17 gm PO BID [facility] Last Admin: 03/09/18 10:26 Dose: Not Given Senna (Senna -) 2 tab PO HS [facility] Last Admin: 03/08/18 23:05 Dose: 2 tab Tamoxifen Citrate (Tamoxifen Citrate) 20 mg PO DAILY [facility] Last Admin: 03/09/18 10:26 Dose: 20 mg - Objective Vital Signs: Vital Signs Temperature 98.8 F 03/09/18 10:00 Pulse Rate 84 03/09/18 10:00 Respiratory Rate 20 03/09/18 10:00 Blood Pressure 120/60 03/09/18 10:00 O2 Sat by Pulse Oximetry (%) 100 03/08/18 20:10 Constitutional: Yes: No Distress, Calm Cardiovascular: Yes: Regular Rate and Rhythm Respiratory: Yes: Regular, CTA Bilaterally Gastrointestinal: Yes: Normal Bowel Sounds, Soft Musculoskeletal: Yes: WNL Extremities: Yes: Other Neurological: Yes: Alert, Other Psychiatric: Yes: Other Labs: CBC, BMP 03/09/18 06:30 03/09/18 06:30 Assessment/Plan Assessment/Plan (1) S/P cystoscopy Assessment/Plan: Code(s): Z98.890 - OTHER SPECIFIED POSTPROCEDURAL STATES (2) Nephrolithiasis Code(s): N20.0 - CALCULUS OF KIDNEY (3) Neurogenic bladder Code(s): N31.9 - NEUROMUSCULAR DYSFUNCTION OF BLADDER, UNSPECIFIED (4) Hypothyroid Code(s): E03.9 - HYPOTHYROIDISM, UNSPECIFIED (5) GERD (gastroesophageal reflux disease) Code(s): K21.9 - GASTRO-ESOPHAGEAL REFLUX DISEASE WITHOUT ESOPHAGITIS Qualifiers: Esophagitis presence: without esophagitis Qualified Code(s): K21.9 - Gastro -esophageal reflux disease without esophagitis (6) Breast CA Code(s): C50.919 - MALIGNANT NEOPLASM OF UNSP SITE OF UNSPECIFIED FEMALE BREAST (7) Multiple sclerosis Code(s): G35 - MULTIPLE SCLEROSIS knowing patient history and her repeated infection and patient a very high risk plan ct abx awaait for all cx reports if all cx reports are negative then will stop abx and patient can be discharged back to the correction
[2018-03-09] MEDS: SENNOSIDES 8.6MG TABLET (FP) PO SCH (21:16)
[2018-03-10] MEDS ORDERED: DEXTROSE 5%-WATER - 50 ML IVPB ONE ×2 (00:49→10:24)
[2018-03-10] MEDS ORDERED: PIPERACILLIN/TAZOBACTAM 3.375 GM VIAL IVPB ONE ×2 (00:49→10:23)
[2018-03-10] MEDS: PIPERACILLIN/TAZOB 3.375 GM 3.375 GM in DEXTROSE 5%-WATER - 50 ML IVPB SCH ×2 (01:25→10:33)
[2018-03-10] MEDS: LEVOTHYROXINE NA 100 MCG TABLET (FP) PO SCH (06:40)
[2018-03-10 08:05] LABS: BASO % 0.4 % (0-2.0); EOS % 2.6 % (0-4.5); HEMATOCRIT 33.7 % (32.4-45.2); HEMOGLOBIN 10.8 GM/dL (10.7-15.3); LYMPH % 33.9 % (8-40); MCH 27.8 pg (25.7-33.7); MEAN CELL VOLUME 86.7 fl (80-96); NEUT % 59.1 % (42.8-82.8); PLATELET COUNT 253 K/MM3 (134-434); RBC 3.88 M/mm3 (3.60-5.2); RDW 14.8 % (11.6-15.6); WHITE BLOOD COUNT 8.6 K/mm3 (4.0-10.0)
[2018-03-10 08:24] LABS: ANION GAP 6 MMOL/L (8-16); BLOOD UREA NITROGEN 8 mg/dL (7-18); CALCIUM 8.5 mg/dL (8.5-10.1); CHLORIDE 108 mmol/L (98-107); CO2 28 mmol/L (21-32); CREATININE 0.3 mg/dL (0.55-1.3); GLUCOSE,RANDOM 94 mg/dL (74-106); POTASSIUM 3.7 mmol/L (3.5-5.1); SODIUM 142 mmol/L (136-145)
[2018-03-10] MEDS ORDERED: LACTOBACILLUS ACIDOPHILUS 1 TABLET PO SCH (10:00)
[2018-03-10] MEDS ORDERED: PT OWN MED DRAWER 7, Y5N ONE (10:25)
[2018-03-10] MEDS: TAMOXIFEN CITRATE 10 MG TABLET PO SCH (10:34)
[2018-03-10] MEDS: ENOXAPARIN NA (PORCINE) 40 MG/0.4 ML DISP.SYRIN SQ SCH (10:34)
[2018-03-10] MEDS: PANTOPRAZOLE 40 MG TABLET (FP) PO SCH (10:35)
[2018-03-10] MEDS: POLYETHYLENE GLYCOL 3350 119 GM BTL PO SCH (10:35)
--- NOTE | 2018-03-10 10:55 | PN ---
Progress Note, Physician History of Present Illness: stable no issues all cx reports noted awaiting rectal swab result - Current Medication List Current Medications: Active Medications Acetaminophen (Tylenol -) 650 mg PO Q4H PRN PRN Reason: PAIN 1-3 Enoxaparin Sodium (Lovenox -) 40 mg SQ DAILY [facility] Last Admin: 03/10/18 10:34 Dose: 40 mg Piperacillin Sod/Tazobactam (Sod 3.375 gm/ Dextrose) 50 mls @ 100 mls/hr IVPB Q8H-IV [facility]; Protocol Last Admin: 03/10/18 10:33 Dose: 100 mls/hr Lactobacillus Acidophilus (Bacid -) 1 tab PO DAILY [facility] Last Admin: 03/10/18 10:36 Dose: 1 tab Levothyroxine Sodium (Synthroid -) 100 mcg PO 0700 [facility] Last Admin: 03/10/18 06:40 Dose: 100 mcg Oxycodone HCl (Roxicodone -) 5 mg PO Q4H PRN PRN Reason: PAIN LEVEL 1-5 Pantoprazole Sodium (Protonix -) 40 mg PO DAILY [facility] Last Admin: 03/10/18 10:35 Dose: 40 mg Polyethylene Glycol (Miralax (For Daily Use) -) 17 gm PO BID [facility] Last Admin: 03/10/18 10:35 Dose: 17 grams Senna (Senna -) 2 tab PO HS [facility] Last Admin: 03/09/18 21:16 Dose: 2 tab Tamoxifen Citrate (Tamoxifen Citrate) 20 mg PO DAILY [facility] Last Admin: 03/10/18 10:34 Dose: 20 mg - Objective Vital Signs: Vital Signs Temperature 98.8 F 03/10/18 06:00 Pulse Rate 72 03/10/18 06:00 Respiratory Rate 18 03/10/18 06:00 Blood Pressure 111/59 L 03/10/18 06:00 O2 Sat by Pulse Oximetry (%) 95 03/09/18 20:00 Constitutional: Yes: No Distress, Calm, Other (bed bound) Cardiovascular: Yes: Regular Rate and Rhythm Gastrointestinal: Yes: Normal Bowel Sounds Musculoskeletal: Yes: WNL Extremities: Yes: Other Neurological: Yes: Alert Psychiatric: Yes: Alert Labs: CBC, BMP 03/10/18 06:50 03/10/18 06:50 Assessment/Plan Assessment/Plan (1) S/P cystoscopy Assessment/Plan: Code(s): Z98.890 - OTHER SPECIFIED POSTPROCEDURAL STATES (2) Nephrolithiasis Code(s): N20.0 - CALCULUS OF KIDNEY (3) Neurogenic bladder Code(s): N31.9 - NEUROMUSCULAR DYSFUNCTION OF BLADDER, UNSPECIFIED (4) Hypothyroid Code(s): E03.9 - HYPOTHYROIDISM, UNSPECIFIED (5) GERD (gastroesophageal reflux disease) Code(s): K21.9 - GASTRO-ESOPHAGEAL REFLUX DISEASE WITHOUT ESOPHAGITIS Qualifiers: Esophagitis presence: without esophagitis Qualified Code(s): K21.9 - Gastro -esophageal reflux disease without esophagitis (6) Breast CA Code(s): C50.919 - MALIGNANT NEOPLASM OF UNSP SITE OF UNSPECIFIED FEMALE BREAST (7) Multiple sclerosis Code(s): G35 - MULTIPLE SCLEROSIS knowing patient history and her repeated infection and patient a very high risk plan will stop abx will start oral diflucan rest continue current mgmt lockhart top oxycodone for the time being
[2018-03-10] MEDS ORDERED: FLUCONAZOLE 100 MG TABLET (UD) PO SCH (11:00)
--- NOTE | 2018-03-10 11:53 | DS ---
Physical Examination Vital Signs: Vital Signs Temperature 98.8 F 03/10/18 06:00 Pulse Rate 72 03/10/18 06:00 Respiratory Rate 18 03/10/18 06:00 Blood Pressure 111/59 L 03/10/18 06:00 O2 Sat by Pulse Oximetry (%) 95 03/09/18 20:00 Constitutional: Yes: Well Nourished, No Distress, Calm Cardiovascular: Yes: WNL, Regular Rate and Rhythm. No: Murmur Respiratory: Yes: WNL, Regular, CTA Bilaterally. No: Accessory Muscle Use, Rhonchi, SOB, Tachypnea, Wheezes Gastrointestinal: Yes: WNL, Normal Bowel Sounds, Soft, Abdomen, Obese. No: Distention, Tenderness Renal/: Yes: Other (suprapubic in place) Edema: No Neurological: Yes: Alert, Confusion Psychiatric: Yes: Alert Labs: CBC, BMP 03/10/18 06:50 03/10/18 06:50 Discharge Summary Reason For Visit: BLADDER STONE Current Active Problems 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 (Acute) S/P cystoscopy (Acute) Hospital Course: 67 year old female pmh multiple sclerosis, neurogenic bladder w/ suprapubic catheter, resistant UTI's, and paraplegia who is POD2 cystoscopy Laser litho for bladder calculi by urology. Pt was admitted for post op antibx and to monitor for sepsis due to her high risk. Received 2 days of Zosyn. Pt evaluated by ID, cleared for discharge. Blood cultures negative, urine culture w/ sunitha , started on diflucan by ID, complete 10 day course per ID. Pt is medically stable for discharge to SNF. Condition: Good - Instructions Diet, Activity, Other Instructions: diflucan x 9 days Referrals: Kamran Cardenas MD [Staff Physician] - Disposition: NURSING HOME FACILITY - Home Medications Comprehensive Discharge Medication List: Ambulatory Orders Acetaminophen 650 mg PO Q4H PRN 03/28/16 Cholecalciferol (Vitamin D3) [Vitamin D3] 1,000 unit PO DAILY 03/28/16 Levothyroxine [Synthroid -] 100 mcg PO DAILY 03/28/16 Multivitamin [Poly-Vitamin] 1 each PO DAILY 03/28/16 Tamoxifen Citrate 20 mg PO DAILY 03/28/16 Docusate Sodium [Colace -] 100 mg PO HS 06/07/16 Lactobacillus Acidophilus [Bacid -] 1 tab PO DAILY tab 06/11/16 Ascorbic Acid [Vitamin C] 500 mg PO DAILY 06/09/17 Enoxaparin Sodium 40 mg SQ DAILY 06/09/17 Ferrous Sulfate *Liquid* [Feosol *Liquid*] 300 mg PO DAILY 06/09/17 Zinc Sulfate 220 mg PO BID 06/09/17 Calcium Carbonate/Vitamin D3 [Oyster Shell 500-Vit D3 200 Tb] 1 each PO DAILY Interferon Beta-1A [Avonex] 30 mcg IM WEEKLY 02/13/18 Pantoprazole Sodium 40 mg PO DAILY 02/13/18 Polyethylene Glycol 3350 [Miralax 119 gm Btl -] 17 gm PO BID bottle 02/20/18 Sennosides [Senna -] 2 tab PO HS tablet 02/20/18 Fluconazole [Diflucan -] 100 mg PO DAILY 9 Days tablet 03/10/18
[2018-03-10 15:12] VITALS: BP 152/71; PULSE 84; TEMP 97.8
== END 2018-03-10 13:05 | DRG 424 ==
LOC: JASU-SURG 11:00 → JSAMEDAYSX 14:11 → J8W 20:09
PROVIDERS: ADMIT Urology; ATTEND Urology
PROC: 0TFB8ZZ Fragmentation in Bladder, Via Natural or Artificial Opening Endoscopic (ICD-10-PCS; principal; 2018-03-08 12:30)
DX: E03.9 Hypothyroidism, unspecified (principal); N21.0 Calculus in bladder; K21.9 Gastro-esophageal reflux disease without esophagitis; N31.9 Neuromuscular dysfunction of bladder, unspecified; N39.0 Urinary tract infection, site not specified; G35 Multiple sclerosis; F03.90 Unspecified dementia, unspecified severity, without behavioral disturbance, psychotic disturbance, mood disturbance, and anxiety; C50.919 Malignant neoplasm of unspecified site of unspecified female breast; R53.2 Functional quadriplegia; M24.50 Contracture, unspecified joint; L89.109 Pressure ulcer of unspecified part of back, unspecified stage; Z74.01 Bed confinement status; Z96.0 Presence of urogenital implants
CPT/HCPCS: 36415; 80048; 80053; 81003; 81015; 83735; 84100; 85025; 87040; 87077; 87081; 87086; 87186; 94760; J0131

== ENCOUNTER 2018-09-30 02:02 | Inpatient (IN) | payer OTHER ==
[2018-09-30] MEDS ORDERED: ACETAMINOPHEN 1000 MG/100 ML VIAL (NON FORMULARY) IVPB ONE (02:08)
[2018-09-30] MEDS ORDERED: ACETAMINOPHEN INJECTION 100 ML IVPB ONE (02:11)
--- NOTE | 2018-09-30 02:18 | PDOC ---
Attending Attestation - Resident Resident Name: Jake Leung - ED Attending Attestation I have performed the following: I have examined & evaluated the patient, The case was reviewed & discussed with the resident, I agree w/resident's findings & plan - HPI HPI: 09/30/18 05:12 Pt comes with fever and tachy and SOB and looking unwell. SHe has known chronic UTIs from indwelling catheters. She appears septic. - Physicial Exam PE: 09/30/18 05:12 Agree with resident exam. - Medical Decision Making 09/30/18 05:20 Pt received 2L NSS and she is getting her 3rd liter. She received tylenol and yet remains tachycardic. She has S1Q3T3 pattern on EKG , she will have a CTA to r/o PE. 09/30/18 05:31 09/30/18 05:32 09/30/18 07:29 Patient Name: JOHNNY HOWELL THIS IS A PRELIMINARY REPORT FROM [facility] DATE OF SERVICE: 2018-09-30 05:49:51 IMAGES: 466 EXAM: CT ABDOMEN AND PELVIS WITHOUT CONTRAST Prominent endometrial stripe complex, approximately 6 mm. If patient is not on hormone therapy, advise further evaluation with ultrasound. Bilateral nephrolithiasis, including a 3.3 cm staghorn calculus on right that extends into renal pelvis. Moderate left and minimal right hydronephrosis. Bilateral hydroureters. No visible ureteral or bladder stones. Minimal fat stranding around right kidney and proximal right ureter, which could be related to obstruction, although pyelonephritis not excluded. Evaluation for pyelonephritis limited by noncontrast technique. Suprapubic Chopra catheter, with bulb inflated to 6.1 x 5.8 cm. Bladder decompressed. Unremarkable pancreas and gallbladder. No bowel obstruction, colitis, free fluid or free air. Normal appendix. Large feces rectum. Tenting anterior gastric wall, possibly due to scarring. Hepatomegaly. Small umbilical hernia containing fat. Scarring posterior proximal right thigh, probably secondary to decubitus ulcer. Coarse calcification in soft tissues overlying left hip. 09/30/18 20:16 Pt admitted for fever workup/sepsis/ further treatment. She was admitted to hospitalist team
[2018-09-30] MEDS ORDERED: PIPERACILLIN/TAZOB 4.5 GM 4.5 GM in DEXTROSE 5%-WATER 100 ML IVPB ONE (02:35)
[2018-09-30] MEDS ORDERED: VANCOMYCIN 1,000 MG in DEXTROSE 5%-WATER - 250 ML IVPB ONE (02:35)
[2018-09-30] MEDS ORDERED: PIPERACILLIN/TAZOB 4.5 GM 4.5 GM/100 ML BAG IVPB ONE ×2 (02:49→02:55)
[2018-09-30 02:53] LABS: PH,URINE >= 9.0 (5.0-8.0); URINE APPEARANCE TURBID; URINE BILIRUBIN NEGATIVE (NEGATIVE); URINE GLUCOSE (UA) TRACE (NEGATIVE); URINE KETONE NEGATIVE (NEGATIVE); URINE LEUK ESTERASE 3+ (NEGATIVE); URINE NITRITE NEGATIVE (NEGATIVE); URINE PROTEIN 4+ (NEGATIVE)
[2018-09-30 02:54] LABS: URINE COLOR YELLOW
[2018-09-30 02:55] LABS: INR 1.17 (0.83-1.09); PROTHROMBIN TIME (PATIENT) 13.8 SEC (9.7-13.0)
[2018-09-30 02:57] LABS: ARTERIAL BLD GAS O2 SATURATION 99.5 % (95-98); ARTERIAL BLOOD GAS BASE EXCESS -0.1 meq/l (-2-2); ARTERIAL BLOOD GAS PCO2 23.3 mmHg (35-45); ARTERIAL BLOOD GAS PO2 160 mmHg (80-105); ARTERIAL BLOOD GAS pH 7.55 (7.35-7.45)
[2018-09-30 02:57] LABS: ACTIVATED PTT 32.2 SECONDS (25.2-36.5)
[2018-09-30 03:00] LABS: EPI CELLS FEW /HPF (0-5/HPF); URINE WBC >100 /hpf (0-5)
[2018-09-30 03:01] LABS: HYALINE CASTS NONE SEEN /lpf (0-8); URINE BACTERIA MANY /hpf (NEGATIVE); URINE CRYSTALS MODERATE /hpf
[2018-09-30 03:02] LABS: YEAST NEGATIVE (NEGATIVE)
--- NOTE | 2018-09-30 03:07 | PDOC ---
History of Present Illness - General Chief Complaint: Altered Mental Status Stated Complaint: TACHYCARDIA Time Seen by Provider: 09/30/18 02:05 History Source: Intermediate Records Exam Limitations: Clinical Condition - History of Present Illness Initial Comments: 09/30/18 03:01 68F with PMH of MS, paraplegia, neuromuscular dysfunction of bladder s/p suprapubic catheter, anemia, recurrent UTI, dysphagia, muscle spasm, MRSA who presents from [facility] with paperwork indicating tachycardia. Pt is nonverbal and cannot provide any history. Past History - Past Medical History Allergies/Adverse Reactions: Allergies Allergy/AdvReac Type Severity Reaction Status Date / Time No Known Allergies Allergy Verified 03/07/18 14:12 Home Medications: Ambulatory Orders Acetaminophen 650 mg PO Q4H PRN 03/28/16 Cholecalciferol (Vitamin D3) [Vitamin D3] 1,000 unit PO DAILY 03/28/16 Levothyroxine [Synthroid -] 100 mcg PO DAILY 03/28/16 Multivitamin [Poly-Vitamin] 1 each PO DAILY 03/28/16 Tamoxifen Citrate 20 mg PO DAILY 03/28/16 Docusate Sodium [Colace -] 100 mg PO HS 06/07/16 Lactobacillus Acidophilus [Bacid -] 1 tab PO DAILY tab 06/11/16 Ascorbic Acid [Vitamin C] 500 mg PO DAILY 06/09/17 Enoxaparin Sodium 40 mg SQ DAILY 06/09/17 Ferrous Sulfate *Liquid* [Feosol *Liquid*] 300 mg PO DAILY 06/09/17 Zinc Sulfate 220 mg PO BID 06/09/17 Calcium Carbonate/Vitamin D3 [Oyster Shell 500-Vit D3 200 Tb] 1 each PO DAILY Interferon Beta-1A [Avonex] 30 mcg IM WEEKLY 02/13/18 Pantoprazole Sodium 40 mg PO DAILY 02/13/18 Polyethylene Glycol 3350 [Miralax 119 gm Btl -] 17 gm PO BID bottle 02/20/18 Sennosides [Senna -] 2 tab PO HS tablet 02/20/18 Fluconazole [Diflucan -] 100 mg PO DAILY 9 Days tablet 03/10/18 Anemia: Yes Asthma: No Cancer: Yes (breast) Cardiac Disorders: No CVA: No COPD: No CHF: No Dementia: Yes Diabetes: No GI Disorders: Yes (constipation, gerd) Disorders: Yes (NEUROGENIC BLADER, UTI) HTN: No Hypercholesterolemia: No Liver Disease: No Psychiatric Problems: Yes Seizures: Yes Thyroid Disease: Yes (hypo) - Surgical History Abdominal Surgery: No Appendectomy: No Cardiac Surgery: No Cholecystectomy: No Lung Surgery: No Neurologic Surgery: No Orthopedic Surgery: No - Immunization History Immunization Up to Date: Yes - Suicide/Smoking/Psychosocial Hx Smoking Status: No Smoking History: Unknown if ever smoked Have you smoked in the past 12 months: No Number of Cigarettes Smoked Daily: 0 Information on smoking cessation initiated: No 'Breaking Loose' booklet given: 06/08/16 Hx Alcohol Use: No Drug/Substance Use Hx: No Substance Use Type: None Hx Substance Use Treatment: No Review of Systems - Review of Systems Able to Perform ROS?: No (nonverbal) Is the patient limited Maldivian proficient: No *Physical Exam - Vital Signs Last Vital Signs Temp Pulse Resp BP Pulse Ox 102.9 F H 172 H 48 H 136/72 90 L 09/30/18 02:05 09/30/18 02:05 09/30/18 02:05 09/30/18 02:05 09/30/18 02:05 - Physical Exam Comments: 09/30/18 03:14 GENERAL: Well developed, well nourished. Awake but not alert or oriented, nonverbal. HEENT: Normocephalic, atraumatic. Hearing grossly normal. Dry mucous membranes. PERRLA, EOMI. No conjunctival pallor. Sclera are non-icteric. NECK: Supple. Full ROM. No JVD. CARDIOVASCULAR: Regular rate and rhythm. No murmurs, rubs, or gallops. PULMONARY: No evidence of respiratory distress. Lungs clear to auscultation bilaterally. No wheezing, rales or rhonchi. ABDOMINAL: Soft. Non-tender. Non-distended. No rebound or guarding. Suprapubic catheter present. MUSCULOSKELETAL: Normal range of motion at all joints. No bony deformities or tenderness. EXTREMITIES: No cyanosis. No clubbing. No edema. No calf tenderness or swelling. SKIN: Warm and dry. Normal capillary refill. No rashes. No jaundice. PSYCHIATRIC: Not cooperative. Poor eye contact. Nonverbal. Heart Score/ECG Review #1 ECG reviewed & interpreted by me at: 03:17 Compared to previous ECG there are: Changes noted 09/30/18 03:17 Sinus tach vent rate 150 [place] 128 QRS 70 QTc 525 No STD or CASEY T waves flattened in lateral leads Changes from prior ED Treatment Course - LABORATORY CBC & Chemistry Diagram: 09/30/18 02:08 09/30/18 02:08 - ADDITIONAL ORDERS Additional order review: Laboratory Results 09/30/18 09/30/18 09/30/18 02:45 02:20 02:08 PT with INR 13.80 H INR 1.17 H PTT (Actin FS) 32.2 Anticoagulation Therapy No Result Required. Puncture Site No Result Required. ABG pH 7.55 H ABG pCO2 at Pt Temp 23.3 L ABG pO2 at Pt Temp 160 H ABG HCO3 20.5 L ABG O2 Sat (Measured) 99.5 H ABG O2 Content 18.9 ABG Base Excess -0.1 Willian Test No Result Required. Carboxyhemoglobin 1.0 Methemoglobin 0.4 O2 Delivery Device No Result Required. Oxygen Flow Rate No Result Required. Vent Mode No Result Required. Vent Rate No Result Required. Mechanical Rate No Result Required. Pressure Support Vent No Result Required. Urine Color Yellow Urine Appearance Turbid Urine pH >= 9.0 H D Ur Specific [place] 1.022 Urine Protein 4+ H Urine Glucose (UA) Trace Urine Ketones Negative Urine Blood 1+ H Urine Nitrite Negative Urine Bilirubin Negative Urine Urobilinogen 1.0 Ur Leukocyte Esterase 3+ H - RADIOLOGY Radiology Studies Ordered: Category Date Time Status CHEST X-RAY PORTABLE* [RAD] Stat Radiology 09/30/18 02:08 Ordered - Medications Given in the ED: ED Medications Discontinued Medications Generic Name Dose Route Start Last Admin Trade Name Freq PRN Reason Stop Dose Admin Acetaminophen 1,000 mg 09/30/18 02:08 09/30/18 02:31 Ofirmev Injection - IVPB 09/30/18 02:09 1,000 mg ONCE ONE Administration Medical Decision Making - Medical Decision Making 09/30/18 03:17 68F with PMH of frequent urosepsis presents with fever, tachycardia, tachypnea concerning for sepsis. Septic protocol ordered. Pt immediately placed on monitor , given fluids and IV acetaminophen. Vanc/zosyn ordered for broad spectrum coverage. Pending labs. 09/30/18 03:20 CBC shows leukocytosis of 24. Pending CMP and troponin. UA shows UTI. CXR negative on preliminary read. 09/30/18 04:[address] Busby and Dr. Hamilton. Inpt team requesting chest CTA and abd CT. Orders placed. *DC/Admit/Observation/Transfer Diagnosis at time of Disposition: Systemic inflammatory response syndrome (SIRS) UTI (urinary tract infection) Qualifiers: Urinary tract infection type: catheter-associated UTI Indwelling urinary catheter type: cystostomy catheter Encounter type: initial encounter Qualified Code(s): T83.510A - Infection and inflammatory reaction due to cystostomy catheter, initial encounter; N39.0 - Urinary tract infection, site not specified Sepsis Qualifiers: Sepsis type: sepsis due to unspecified organism Qualified Code(s): A41.9 - Sepsis, unspecified organism - Discharge Dispostion Condition at time of disposition: Critical Decision to Admit order: Yes - Referrals - Patient Instructions - Post Discharge Activity
[2018-09-30 03:10] LABS: BASO % 0.3 % (0-2.0); HEMATOCRIT 42.1 % (32.4-45.2); HEMOGLOBIN 12.9 GM/dL (10.7-15.3); LYMPH % 11.5 % (8-40); MCH 27.3 pg (25.7-33.7); MCHC 30.6 g/dl (32.0-36.0); MEAN CELL VOLUME 89.2 fl (80-96); MEAN PLT VOLUME 10.5 fl (7.5-11.1); MONO % 4.2 % (3.8-10.2); PLATELET COUNT 400 K/MM3 (134-434); RBC 4.72 M/mm3 (3.60-5.2); RDW 16.4 % (11.6-15.6); WHITE BLOOD COUNT 24.4 K/mm3 (4.0-10.0)
[2018-09-30 03:20] LABS: ALBUMIN 2.7 g/dl (3.4-5.0); ALK PHOS 80 U/L (45-117); ANION GAP 10 MMOL/L (8-16); BILIRUBIN,TOTAL 0.2 mg/dL (0.2-1); BLOOD UREA NITROGEN 56 mg/dL (7-18); CALCIUM 8.9 mg/dL (8.5-10.1); CHLORIDE 122 mmol/L (98-107); CO2 23 mmol/L (21-32); CREATININE 1.6 mg/dL (0.55-1.3); POTASSIUM 4.7 mmol/L (3.5-5.1); SGOT/AST 41 U/L (15-37); SGPT/ALT 76 U/L (13-61); SODIUM 155 mmol/L (136-145); TOT PROT 8.3 g/dl (6.4-8.2)
[2018-09-30 03:22] LABS: GLUCOSE,RANDOM 440 mg/dL (74-106)
[2018-09-30] MEDS ORDERED: SODIUM CHLORIDE 0.9% 1000 ML INFUS.BAG IV ONE ×2 (03:22→03:48)
--- NOTE | 2018-09-30 03:34 | PN ---
Teaching Attending Note Name of Resident: Jayant Busby ATTENDING PHYSICIAN STATEMENT I saw and evaluated the patient. I reviewed the resident's note and discussed the case with the resident. I agree with the resident's findings and plan as documented. SUBJECTIVE: Seen and examined; please refer to resident note for further historical documentation. Briefly, this is a 68 y/o female resident of [facility] presenting with paperwork indicating tachycardia; she has a PMH signifcant for MS, neurogenic bladder s/p SPT with MDRO's (follows with Dr. Fuchs), paraplegia, bladder calculi s/p laser lithotripsy, dementia, hypothyroidism. She presents today with tachycardia and is found to be septic with pyuria. She is noted to be febrile to 102.9, tachy to the 170s, tachypnic to 48, satting 90% on RA wiht normal BP. ABG shows normal PaO2 with respiratory alkalosis with some metabolic compensation. She has an TANISHA with Cr 1.6 and her lactic acid is up at 3.5 with some mild transaminitis. Paraproteinemia and hyperglycemia to the 440s noted, and she is hypernatremic to 155. She will be brought to the medicine service. In the ER she was given broad spectrum abx and hydrated. Thank you, Dr. Grover, for allowing [facility] to take part in the ongoing care of your patient. 10 sys ROS couldn't be reliably completed due to baseline mentation PMH, PSH, FH, SH reviewed Home Medications Medication Instructions Recorded Acetaminophen 650 mg PO Q4H PRN 03/28/16 Cholecalciferol (Vitamin D3) 1,000 unit PO DAILY 03/28/16 [Vitamin D3] Levothyroxine [Synthroid -] 100 mcg PO DAILY 03/28/16 Multivitamin [Poly-Vitamin] 1 each PO DAILY 03/28/16 Tamoxifen Citrate 20 mg PO DAILY 03/28/16 Docusate Sodium [Colace -] 100 mg PO HS 06/07/16 Lactobacillus Acidophilus [Bacid -] 1 tab PO DAILY tab 06/11/16 Ascorbic Acid [Vitamin C] 500 mg PO DAILY 06/09/17 Enoxaparin Sodium 40 mg SQ DAILY 06/09/17 Ferrous Sulfate *Liquid* [Feosol 300 mg PO DAILY 06/09/17 *Liquid*] Zinc Sulfate 220 mg PO BID 06/09/17 Calcium Carbonate/Vitamin D3 1 each PO DAILY 02/13/18 [Oyster Shell 500-Vit D3 200 Tb] Interferon Beta-1A [Avonex] 30 mcg IM WEEKLY 02/13/18 Pantoprazole Sodium 40 mg PO DAILY 02/13/18 Polyethylene Glycol 3350 [Miralax 17 gm PO BID bottle 02/20/18 119 gm Btl -] Sennosides [Senna -] 2 tab PO HS tablet 02/20/18 Fluconazole [Diflucan -] 100 mg PO DAILY 9 Days tablet 03/10/18 OBJECTIVE: VS, labs, imaging reviewed NAD, Awake and tracks but is nonverbal, mild distress NC AT EOMI PERRLA Tachycardia, regular rate, no reinaldo mgr Lungs with poor respiratory effort, w/ sym exp Mild tenderness, EKG reviewed Echo pending ASSESSMENT AND PLAN: Patient presents with sepsis; found to have hypernatremia, TANISHA, paraproteinemia , and hyperglycemia. 1) Sepsis likely 2/2 MDRO UTI with chronic SPT -Septic; continue hydration (repeat BMP to determine if want hypotonic vs. isotonic as hydrated in the ER) -Given prior MDROs with pseud in 2016 will cover with BID Merrem and consult Dr. Fuchs -Followup blood and urine cultures -Given history of stones will check CT abdomen and pelvis to r/o any involvement ; unfortunately will have to use a noncontrasted study due to TANISHA -Followup repeat lactate -Discuss potential for SPT exchange with urology in the AM 2) Hypernatremia -Followup repeat BMP and then determine fluids; she looked dry and did get isotonic in ER. Will avoid overcorrection. Consulting Dr. Mcdonough. Free water deficit on initial CMP noted. 3) TANISHA -Likely prerenal due to sepsis; empirically hydrated and rechecking. Nephrology consulted. Monitor BMP and strict Is and Os. -Consider presence of paraproteinemia 4) Paraproteinemia -SPEP and UPEP; consider heme consult 5) DM with hyperglycemia -Given fluids and insulin in the ER; monitor repeat fingerstick and place on SSI. Check A1c. 6) Hx Hypothyroidism -Continue LT4 7) Troponemia -Repeat EKG in AM; reviewed current EKG. Trend troponin. She cannot reliably tell us if she is symptomatic. Likely is demand 2/2 subendocardial ischemia due to the sepsis with severe tachycardia but will check echo to r/o wma's and consult cardiology. Consider ASA prior to DC. 8) Tachypnea and tachycardia -Of course can be 2/2 sepsis but given her immobility will ensure with her facility she was getting DVT ppx. If she wasn't consider VQ scan vs. CTA (if renal function improves) to r/o PE. Full Code
--- NOTE | 2018-09-30 03:54 | HP ---
<Jayant Busby - Last Filed: 09/30/18 05:13> CHIEF COMPLAINT: tachycardia PCP: william Dutton HISTORY OF PRESENT ILLNESS: 68 yr old female with a history of MS, bladder disorder (neuromuscular) s/p suprapubic catheter insertion, anemia, recurrent drug-resistant UTIs, dysphagia and muscle spasms was brought in from shelter from alleged tachycardia. Per ED, patient is non-verbal and unable to state her concerns. In the ED, she was found to be febrile, tachycardic to the 170s. She appears to have frequent admissions for urinary catheter-related issues. PAST MEDICAL HISTORY: as stated above Allergies No Known Allergies Allergy (Verified 03/07/18 14:12) HOME MEDICATIONS: Home Medications Medication Instructions Recorded Acetaminophen 650 mg PO Q4H PRN 03/28/16 Cholecalciferol (Vitamin D3) 1,000 unit PO DAILY 03/28/16 [Vitamin D3] Levothyroxine [Synthroid -] 100 mcg PO DAILY 03/28/16 Multivitamin [Poly-Vitamin] 1 each PO DAILY 03/28/16 Tamoxifen Citrate 20 mg PO DAILY 03/28/16 Docusate Sodium [Colace -] 100 mg PO HS 06/07/16 Lactobacillus Acidophilus [Bacid -] 1 tab PO DAILY tab 06/11/16 Ascorbic Acid [Vitamin C] 500 mg PO DAILY 06/09/17 Enoxaparin Sodium 40 mg SQ DAILY 06/09/17 Ferrous Sulfate *Liquid* [Feosol 300 mg PO DAILY 06/09/17 *Liquid*] Zinc Sulfate 220 mg PO BID 06/09/17 Calcium Carbonate/Vitamin D3 1 each PO DAILY 02/13/18 [Oyster Shell 500-Vit D3 200 Tb] Interferon Beta-1A [Avonex] 30 mcg IM WEEKLY 02/13/18 Pantoprazole Sodium 40 mg PO DAILY 02/13/18 Polyethylene Glycol 3350 [Miralax 17 gm PO BID bottle 02/20/18 119 gm Btl -] Sennosides [Senna -] 2 tab PO HS tablet 02/20/18 Fluconazole [Diflucan -] 100 mg PO DAILY 9 Days tablet 03/10/18 REVIEW OF SYSTEMS CONSTITUTIONAL: Absent: fever, chills, diaphoresis, generalized weakness, malaise, loss of appetite, weight change HEENT: Absent: rhinorrhea, nasal congestion, throat pain, throat swelling, difficulty swallowing, mouth swelling, ear pain, eye pain, visual changes CARDIOVASCULAR: Absent: chest pain, syncope, palpitations, irregular heart rate, lightheadedness , peripheral edema RESPIRATORY: Absent: cough, shortness of breath, dyspnea with exertion, orthopnea, wheezing, stridor, hemoptysis GASTROINTESTINAL: Absent: abdominal pain, abdominal distension, nausea, vomiting, diarrhea, constipation, melena, hematochezia GENITOURINARY: Absent: dysuria, frequency, urgency, hesitancy, hematuria, flank pain, genital pain MUSCULOSKELETAL: Absent: myalgia, arthralgia, joint swelling, back pain, neck pain SKIN: Absent: rash, itching, pallor HEMATOLOGIC/IMMUNOLOGIC: Absent: easy bleeding, easy bruising, lymphadenopathy, frequent infections ENDOCRINE: Absent: unexplained weight gain, unexplained weight loss, heat intolerance, cold intolerance NEUROLOGIC: Absent: headache, focal weakness or paresthesias, dizziness, unsteady gait, seizure, mental status changes, bladder or bowel incontinence PSYCHIATRIC: Absent: anxiety, depression, suicidal or homicidal ideation, hallucinations. PHYSICAL EXAMINATION Vital Signs - 24 hr 09/30/18 02:05 Temperature 102.9 F H Pulse Rate 172 H Respiratory 48 H Rate Blood Pressure 136/72 O2 Sat by Pulse 90 L Oximetry (%) GENERAL: A&Ox0, diaphoretic and breathing heavily EYES: PERRLA, EOMI ENT: Moist mucus membranes NECK: No JVD LUNGS: CTA, no wheezes HEART: RRR, systolic murmur auscultated on exam ABDOMEN: Soft, nontender, BS present MUSCULOSKELETAL: No CVA Tenderness EXTREMITIES: 2+ pulses, no edema. NEUROLOGICAL: unable to assess Laboratory Results - last 24 hr 09/30/18 09/30/18 09/30/18 02:08 02:08 02:08 WBC 24.4 H RBC 4.72 Hgb 12.9 Hct 42.1 D MCV 89.2 MCH 27.3 MCHC 30.6 L RDW 16.4 H Plt Count 400 D MPV 10.5 D Absolute Neuts (auto) 20.5 H Neutrophils % 84.0 H D Lymphocytes % 11.5 D Monocytes % 4.2 Eosinophils % 0.0 D Basophils % 0.3 Nucleated RBC % 0 PT with INR 13.80 H INR 1.17 H PTT (Actin FS) 32.2 Anticoagulation Therapy Puncture Site ABG pH ABG pCO2 at Pt Temp ABG pO2 at Pt Temp ABG HCO3 ABG O2 Sat (Measured) ABG O2 Content ABG Base Excess Willian Test Carboxyhemoglobin Methemoglobin O2 Delivery Device Oxygen Flow Rate Vent Mode Vent Rate Mechanical Rate Pressure Support Vent Sodium 155 H Potassium 4.7 Chloride 122 H Carbon Dioxide 23 Anion Gap 10 BUN 56 H Creatinine 1.6 H Creat Clearance w eGFR 32.25 Random Glucose 440 H* Lactic Acid Calcium 8.9 Total Bilirubin 0.2 AST 41 H ALT 76 H Alkaline Phosphatase 80 Troponin I 0.06 H Total Protein 8.3 H Albumin 2.7 L Urine Color Urine Appearance Urine pH Ur Specific [place] Urine Protein Urine Glucose (UA) Urine Ketones Urine Blood Urine Nitrite Urine Bilirubin Urine Urobilinogen Ur Leukocyte Esterase Urine WBC (Auto) Urine RBC (Auto) Urine Casts (Auto) U Pathogenic Cast Auto U Epithel Cells (Auto) U Sm Round Cell (Auto) Urine Crystals (Auto) Urine Bacteria (Auto) Urine Yeast (Auto) 09/30/18 09/30/18 09/30/18 02:08 02:20 02:45 WBC RBC Hgb Hct MCV MCH MCHC RDW Plt Count MPV Absolute Neuts (auto) Neutrophils % Lymphocytes % Monocytes % Eosinophils % Basophils % Nucleated RBC % PT with INR INR PTT (Actin FS) Anticoagulation Therapy No Result Required. Puncture Site No Result Required. ABG pH 7.55 H ABG pCO2 at Pt Temp 23.3 L ABG pO2 at Pt Temp 160 H ABG HCO3 20.5 L ABG O2 Sat (Measured) 99.5 H ABG O2 Content 18.9 ABG Base Excess -0.1 Willian Test No Result Required. Carboxyhemoglobin 1.0 Methemoglobin 0.4 O2 Delivery Device No Result Required. Oxygen Flow Rate No Result Required. Vent Mode No Result Required. Vent Rate No Result Required. Mechanical Rate No Result Required. Pressure Support Vent No Result Required. Sodium Potassium Chloride Carbon Dioxide Anion Gap BUN Creatinine Creat Clearance w eGFR Random Glucose Lactic Acid 3.5 H* Calcium Total Bilirubin AST ALT Alkaline Phosphatase Troponin I Total Protein Albumin Urine Color Yellow Urine Appearance Turbid Urine pH >= 9.0 H D Ur Specific [place] 1.022 Urine Protein 4+ H Urine Glucose (UA) Trace Urine Ketones Negative Urine Blood 1+ H Urine Nitrite Negative Urine Bilirubin Negative Urine Urobilinogen 1.0 Ur Leukocyte Esterase 3+ H Urine WBC (Auto) >100 Urine RBC (Auto) 5-10 Urine Casts (Auto) None seen U Pathogenic Cast Auto Negative U Epithel Cells (Auto) Few U Sm Round Cell (Auto) None seen Urine Crystals (Auto) Moderate Urine Bacteria (Auto) Many Urine Yeast (Auto) Negative ASSESSMENT/PLAN: 68 yr old female with a history of MS, bladder disorder (neuromuscular) s/p suprapubic catheter insertion, anemia, recurrent drug-resistant UTIs, dysphagia and muscle spasms was brought in from shelter from alleged tachycardia. #Severe Sepsis 2/2 Urinary Tract Infection: treated multiple times in the past and has multiple organisms with drug resistance patterns -fluid resuscitation -repeat lactate -meropenem 500 BID -Dr. Fuchs consulted -monitor vital signs -will need to exchange suprapubic catheter, in AM should consult urologist that inserted the catheter -will get abd/pelvis CT to r/o intraabdominal process -chest CT to r/o PE, although very low on differential #Acute Kidney Injury: possibly prerenal due to sepsis, fluid depletion -replenish fluids -renal consultation #Hypernatremia: likely dehydration -ED placed on 1/2NS, will watch -renal consult #Troponinemia: likely demand from sepsis -repeat echo, will get cardiology on the case -repeat EKG in AM #Hyperglycemia: glucose to 440s, diabetes mellitus -repeat BMP now -fluid repletion -Q6h BGMs -SSI #Hyperproteinemia: with hypoalbuminemia and TANISHA, suspect for myeloma -will get SPEP/UPEP #FEN -1/2 NS, may want to watch and repeat BMP -NPO for now #Prophylaxis -lovenox prophylaxis #Disposition -admit tele Visit type - Emergency Visit Emergency Visit: Yes ED Registration Date: 09/30/18 Care time: The patient presented to the Emergency Department on the above date and was hospitalized for further evaluation of their emergent condition. - New Patient This patient is new to me today: Yes Date on this admission: 09/30/18 - Critical Care Critical Care patient: No <Art Hamilton - Last Filed: 10/27/18 12:21> Seen and examined; agree with above aside from as documented in my own note. Present for all essential parts of exam and verified all historical info.
[2018-09-30] MEDS: SODIUM CHLORIDE 0.45% 1,000 ML IV SCH (03:56)
[2018-09-30 05:03] LABS: ANION GAP 9 MMOL/L (8-16); BLOOD UREA NITROGEN 45 mg/dL (7-18); CHLORIDE 122 mmol/L (98-107); CO2 21 mmol/L (21-32); CREATININE 1.1 mg/dL (0.55-1.3); POTASSIUM 3.9 mmol/L (3.5-5.1); SODIUM 153 mmol/L (136-145)
[2018-09-30 05:05] LABS: CALCIUM 6.6 mg/dL (8.5-10.1); GLUCOSE,RANDOM 433 mg/dL (74-106)
[2018-09-30] MEDS ORDERED: INSULIN REGULAR HUMAN 100 UNITS/ML *VIAL IVPUSH ONE (05:11)
[2018-09-30 05:54] LABS: BASO % 0.2 % (0-2.0); HEMATOCRIT 33.1 % (32.4-45.2); HEMOGLOBIN 10.1 GM/dL (10.7-15.3); LYMPH % 15.3 % (8-40); MCH 27.3 pg (25.7-33.7); MCHC 30.5 g/dl (32.0-36.0); MEAN CELL VOLUME 89.3 fl (80-96); MEAN PLT VOLUME 10.2 fl (7.5-11.1); MONO % 1.7 % (3.8-10.2); NEUT % 82.8 % (42.8-82.8); PLATELET COUNT 249 K/MM3 (134-434); RDW 16.3 % (11.6-15.6); WHITE BLOOD COUNT 15.8 K/mm3 (4.0-10.0)
[2018-09-30 05:55] LABS: ANISOCYTOSIS 1+; MACROCYTOSIS 0; PLATELET ESTIMATE NORMAL
[2018-09-30 07:16] LABS: ALK PHOS 57 U/L (45-117); ANION GAP 9 MMOL/L (8-16); BILIRUBIN,TOTAL 0.5 mg/dL (0.2-1); BLOOD UREA NITROGEN 42 mg/dL (7-18); CHLORIDE 121 mmol/L (98-107); CO2 21 mmol/L (21-32); CREATININE 1.2 mg/dL (0.55-1.3); MAGNESIUM 1.9 mg/dL (1.8-2.4); POTASSIUM 3.5 mmol/L (3.5-5.1); SGOT/AST 30 U/L (15-37); SGPT/ALT 55 U/L (13-61); SODIUM 151 mmol/L (136-145)
[2018-09-30 07:29] LABS: GLUCOSE,RANDOM 459 mg/dL (74-106)
[2018-09-30] MEDS ORDERED: ENOXAPARIN NA (PORCINE) 40 MG/0.4 ML DISP.SYRIN SQ ONE (09:04)
[2018-09-30] MEDS ORDERED: INSULIN (NOVOLOG) ASPART 100 UNITS/ML 10ML VIAL ONE ×2 (09:05→13:54)
[2018-09-30] MEDS: INSULIN SLIDING SCALE (NOVOLOG) 1 VIAL SQ SCH ×4 (09:19→23:33)
--- NOTE | 2018-09-30 09:33 | PN ---
Progress Note, Physician Chief Complaint: Unable to obtain. Patient at first not responsive but later opens her eyes, smiles, and says hey. Currently not baseline. - Current Medication List Current Medications: Active Medications Ascorbic Acid (Vitamin C -) 500 mg PO DAILY [facility] Calcium Carbonate/Cholecalciferol (Os-Mikie 500+D -) 1 tab PO DAILY [facility] Docusate Sodium (Colace -) 100 mg PO HS [facility] Enoxaparin Sodium (Lovenox -) 40 mg SQ DAILY [facility] Sodium Chloride (1/2 Normal Saline) 1,000 mls @ 200 mls/hr IV ASDIR [facility] Last Admin: 09/30/18 03:56 Dose: 200 mls/hr Meropenem 500 mg/ Dextrose 100 mls @ 200 mls/hr IVPB BID [facility] Stop: 09/30/18 10:29 Meropenem 500 mg/ Dextrose 100 mls @ 200 mls/hr IVPB BID [facility] Stop: 10/01/18 21:59 Insulin Aspart (Novolog Vial Sliding Scale -) 1 vial SQ Q6HPO [facility]; Protocol Last Admin: 09/30/18 09:19 Dose: 10 units Levothyroxine Sodium (Synthroid -) 100 mcg PO DAILY@0700 [facility] Multivitamins/Minerals/Vitamin C (Tab-A-Vit -) 1 tab PO DAILY [facility] Pantoprazole Sodium (Protonix -) 40 mg PO DAILY [facility] Polyethylene Glycol (Miralax (For Daily Use) -) 17 gm PO BID [facility] Senna (Senna -) 2 tab PO HS [facility] Tamoxifen Citrate (Tamoxifen Citrate) 20 mg PO DAILY [facility] Zinc Sulfate (Orazinc -) 220 mg PO BID [facility] - Objective Vital Signs: Vital Signs Temperature 36.3 C L 09/30/18 08:41 Pulse Rate 131 H 09/30/18 08:41 Respiratory Rate 44 H 09/30/18 08:41 Blood Pressure 96/70 09/30/18 08:41 O2 Sat by Pulse Oximetry (%) 97 09/30/18 08:41 Constitutional: Yes: Well Nourished, No Distress, Calm Cardiovascular: Yes: Tachycardia. No: Gallop, Murmur, Rub Respiratory: Yes: CTA Bilaterally, On Nasal O2, Tachypnea. No: Rales, Rhonchi, Wheezes Gastrointestinal: Yes: Normal Bowel Sounds, Soft. No: Distention, Tenderness Genitourinary: Yes: Other (suprapubic catheter in place draining dark urine) Extremities: Yes: WNL Edema: No Labs: CBC, BMP 09/30/18 05:14 09/30/18 05:14 INR, PTT INR 1.17 (0.83-1.09) H 09/30/18 02:08 Problem List - Problems (1) Severe sepsis Assessment/Plan: -patient with UTI and found to have lactic acidosis on first presentation, leukocytosis, tachycardia, tachypnea -given 2L NS in the ED -continue 1/2NS at aggressive rate -given vancomycin and zosyn in the ED -ordered merrem -ID consulted and awaiting merrem approval -follow up urine and blood cultures Code(s): A41.9 - SEPSIS, UNSPECIFIED ORGANISM; R65.20 - SEVERE SEPSIS WITHOUT SEPTIC SHOCK (2) UTI (urinary tract infection) Assessment/Plan: -history of multiple drug resistant UTIs -at high risk since has suprapubic catheter placed and staghorn calculi -follow up cultures -antibiotics as above -ID consulted, will d/w Dr Fuchs Code(s): N39.0 - URINARY TRACT INFECTION, SITE NOT SPECIFIED Qualifiers: Urinary tract infection type: catheter-associated UTI Indwelling urinary catheter type: cystostomy catheter Encounter type: initial encounter Qualified Code(s): T83.510A - Infection and inflammatory reaction due to cystostomy catheter, initial encounter; N39.0 - Urinary tract infection, site not specified (3) Fecal impaction Assessment/Plan: -noted on CT scan -await official read of CT scan as well -will order enemas -bowel regimen when safe to take po Code(s): K56.41 - FECAL IMPACTION (4) 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 Assessment/Plan: -chronic Code(s): G35 - MULTIPLE SCLEROSIS; R53.2 - FUNCTIONAL QUADRIPLEGIA (5) Hypernatremia Assessment/Plan: -secondary to sepsis and dehydration -nephrology consulted -continue IVF -follow up bmp this afternoon Code(s): E87.0 - HYPEROSMOLALITY AND HYPERNATREMIA (6) Hypothyroid Assessment/Plan: -on synthroid 100mcg as an outpatient -can hold while npo as has long half life Code(s): E03.9 - HYPOTHYROIDISM, UNSPECIFIED (7) Multiple sclerosis Assessment/Plan: -chronic Code(s): G35 - MULTIPLE SCLEROSIS (8) Nephrolithiasis Assessment/Plan: -chronic -increases risk of UTI and sepsis Code(s): N20.0 - CALCULUS OF KIDNEY (9) Neurogenic bladder Assessment/Plan: -suprapubic catheter placed -urology consult placed for replacement Code(s): N31.9 - NEUROMUSCULAR DYSFUNCTION OF BLADDER, UNSPECIFIED (10) Sinus tachycardia Assessment/Plan: -secondary to sepsis -treat as above Code(s): R00.0 - TACHYCARDIA, UNSPECIFIED (11) Thickened endometrium Assessment/Plan: -chronic Code(s): R93.8 - ABNORMAL FINDINGS ON DIAGNOSTIC IMAGING OF APOORVA * DO NOT USE * (12) Elevated troponin Assessment/Plan: -suspect stress induced -cardiology consulted -trend -on telemetry Code(s): R74.8 - ABNORMAL LEVELS OF OTHER SERUM ENZYMES
--- NOTE | 2018-09-30 09:42 | EKG ---
Test Reason : Blood Pressure : / mmHG Vent. Rate : 128 BPM Atrial Rate : 128 BPM P-R Int : 128 ms QRS Dur : 066 ms QT Int : 312 ms P-R-T Axes : 033 -20 -18 degrees QTc Int : 455 ms POOR DATA QUALITY, INTERPRETATION MAY BE ADVERSELY AFFECTED SINUS TACHYCARDIA WITH OCCASIONAL PREMATURE VENTRICULAR COMPLEXES INFERIOR INFARCT , AGE UNDETERMINED ABNORMAL ECG WHEN COMPARED WITH ECG OF 30-SEP-2018 02:46, PREMATURE VENTRICULAR COMPLEXES ARE NOW PRESENT INFERIOR INFARCT IS NOW PRESENT NONSPECIFIC T WAVE ABNORMALITY NO LONGER EVIDENT IN LATERAL LEADS Confirmed by KAREEM FRITZ, FLORES ([id number]) on 09/30/2018 9:42:17 AM Referred By: CHRISTINE Confirmed By:FLORES SERNA MD
--- NOTE | 2018-09-30 09:43 | EKG ---
Test Reason : Blood Pressure : / mmHG Vent. Rate : 140 BPM Atrial Rate : 140 BPM P-R Int : 128 ms QRS Dur : 070 ms QT Int : 344 ms P-R-T Axes : 016 -17 000 degrees QTc Int : 525 ms SINUS TACHYCARDIA NONSPECIFIC T WAVE ABNORMALITY ABNORMAL ECG WHEN COMPARED WITH ECG OF 14-FEB-2018 02:28, VENT. RATE HAS INCREASED BY 46 BPM T WAVE INVERSION MORE EVIDENT IN INFERIOR LEADS T WAVE INVERSION NOW EVIDENT IN ANTERIOR LEADS Confirmed by KAREEM FRITZ, FLORES ([id number]) on 09/30/2018 9:43:03 AM Referred By: Confirmed By:FLORES SERNA MD
[2018-09-30] MEDS ORDERED: MEROPENEM 500 MG in DEXTROSE 5%-WATER 100 ML IVPB SCH ×2 (10:00→22:00)
[2018-09-30] MEDS: ENOXAPARIN NA (PORCINE) 40 MG/0.4 ML DISP.SYRIN SQ SCH (10:53)
[2018-09-30] MEDS: LEVOTHYROXINE NA 100 MCG TABLET (FP) PO SCH (10:53)
[2018-09-30] MEDS: ASCORBIC ACID 500 MG TABLET (FP) PO SCH (10:54)
[2018-09-30] MEDS: CALCIUM 500MG/VIT-D 200 UNITS COMBO TABLET (FP) PO SCH (10:54)
[2018-09-30] MEDS: PANTOPRAZOLE 40 MG TABLET (FP) PO SCH (10:54)
[2018-09-30] MEDS: TAMOXIFEN CITRATE 10 MG TABLET PO SCH (10:54)
[2018-09-30] MEDS: ZINC SULFATE 220 MG CAPSULE (FP) PO SCH ×2 (10:54→21:19)
[2018-09-30] MEDS: MULTIVITAMINS (DAILY MVI) TABLET (FP) PO SCH (10:55)
[2018-09-30] MEDS: POLYETHYLENE GLYCOL 3350 119 GM BTL PO SCH ×2 (10:55→21:22)
--- NOTE | 2018-09-30 12:52 | CON.ID ---
Consult Consult Specialty:: infectious diseases Referred by:: dr moyer Reason for Consultation:: sepsis,uti - History of Present Illness Chief Complaint: sepsis History of Present Illness: 68 yr old female with a history of MS, bladder disorder (neuromuscular) s/p suprapubic catheter insertion, anemia, recurrent drug-resistant UTIs, dysphagia and muscle spasms was brought in from group home from alleged tachycardia. Per ED, patient is non-verbal and unable to state her concerns. In the ED, she was found to be febrile, tachycardic to the 170s. She appears to have frequent admissions for urinary catheter-related issues. patient has a suprapubic catheter which appears to be leaking from the sides when asked she always says she is fine - History Source History Provided By: Medical Record Limitations to Obtaining History: Dementia - Past Medical History [employer]: Yes: Dementia, Multiple Sclerosis Gastrointestinal: Yes: GERD Renal/: Yes: Neurogenic Bladder, Renal Calculi, UTI Infectious Disease: Yes: MRSA Rheumatology: Yes: Other (multiple sclerosis) Endocrine: Yes: Hypothyroidism - Past Surgical History Past Surgical History: Yes: Mastectomy - Alcohol/Substance Use Hx Alcohol Use: No History of Substance Use: reports: None - Smoking History Smoking history: Unknown if ever smoked Have you smoked in the past 12 months: No Aproximately how many cigarettes per day: 0 - Social History ADL: Support Services History of Recent Travel: No Home Medications - Allergies Allergies/Adverse Reactions: Allergies Allergy/AdvReac Type Severity Reaction Status Date / Time No Known Allergies Allergy Verified 03/07/18 14:12 - Home Medications Home Medications: Ambulatory Orders Acetaminophen 650 mg PO Q4H PRN 03/28/16 Cholecalciferol (Vitamin D3) [Vitamin D3] 1,000 unit PO DAILY 03/28/16 Levothyroxine [Synthroid -] 100 mcg PO DAILY 03/28/16 Multivitamin [Poly-Vitamin] 1 each PO DAILY 03/28/16 Tamoxifen Citrate 20 mg PO DAILY 03/28/16 Docusate Sodium [Colace -] 100 mg PO HS 06/07/16 Lactobacillus Acidophilus [Bacid -] 1 tab PO DAILY tab 06/11/16 Ascorbic Acid [Vitamin C] 500 mg PO DAILY 06/09/17 Enoxaparin Sodium 40 mg SQ DAILY 06/09/17 Ferrous Sulfate *Liquid* [Feosol *Liquid*] 300 mg PO DAILY 06/09/17 Zinc Sulfate 220 mg PO BID 06/09/17 Calcium Carbonate/Vitamin D3 [Oyster Shell 500-Vit D3 200 Tb] 1 each PO DAILY Interferon Beta-1A [Avonex] 30 mcg IM WEEKLY 02/13/18 Pantoprazole Sodium 40 mg PO DAILY 02/13/18 Polyethylene Glycol 3350 [Miralax 119 gm Btl -] 17 gm PO BID bottle 02/20/18 Sennosides [Senna -] 2 tab PO HS tablet 02/20/18 Amox-Tr/K Cl [Augmentin 500-125mg Tablet -] 1 tab PO BID@0800,1730 13 Days #26 tablet 10/06/18 Amoxicillin/Potassium Clav [Augmentin 500-125 Tablet] 1 each PO BID #26 tablet 10/06/18 Ertapenem Sodium - 1 Gram [Invanz (Pre-Docked)] 1 gm IVPB DAILY #13 bag Insulin Sliding Scale [Novolog Vial Sliding Scale -] 1 vial SQ Q6HPO units 03/17 Review of Systems Unable to obtain ROS, reason: unable to obtain Physical Exam Vital Signs: Vital Signs Temperature 97.4 F L 09/30/18 08:41 Pulse Rate 131 H 09/30/18 08:41 Respiratory Rate 44 H 09/30/18 08:41 Blood Pressure 96/70 09/30/18 08:41 O2 Sat by Pulse Oximetry (%) 97 09/30/18 08:41 Constitutional: Yes: No Distress, Calm, Other (bed bound) Eyes: Yes: Conjunctiva Clear HENT: Yes: Atraumatic Neck: Yes: Supple, Trachea Midline Respiratory: Yes: Regular, CTA Bilaterally Gastrointestinal: Yes: Normal Bowel Sounds, Soft Renal/: Yes: Chopra Present (suprapubic) Extremities: Yes: Other Neurological: Yes: Alert, Other (dementia) Psychiatric: Yes: Alert Labs: CBC, BMP 09/30/18 05:14 09/30/18 05:14 Imaging - Results Chest X-ray: Report Reviewed, Image Reviewed Cat Scan: Report Reviewed, Image Reviewed Assessment/Plan oblem List - Problems (1) Severe sepsis Code(s): A41.9 - SEPSIS, UNSPECIFIED ORGANISM; R65.20 - SEVERE SEPSIS WITHOUT SEPTIC SHOCK (2) UTI (urinary tract infection) Code(s): N39.0 - URINARY TRACT INFECTION, SITE NOT SPECIFIED Qualifiers: Urinary tract infection type: catheter-associated UTI Indwelling urinary catheter type: cystostomy catheter Encounter type: initial encounter Qualified Code(s): T83.510A - Infection and inflammatory reaction due to cystostomy catheter, initial encounter; N39.0 - Urinary tract infection, site not specified (3) Fecal impaction Code(s): K56.41 - FECAL IMPACTION (4) 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 Code(s): G35 - MULTIPLE SCLEROSIS; R53.2 - FUNCTIONAL QUADRIPLEGIA (5) Hypernatremia Code(s): E87.0 - HYPEROSMOLALITY AND HYPERNATREMIA (6) Hypothyroid Code(s): E03.9 - HYPOTHYROIDISM, UNSPECIFIED (7) Multiple sclerosis Code(s): G35 - MULTIPLE SCLEROSIS (8) Nephrolithiasis Code(s): N20.0 - CALCULUS OF KIDNEY (9) Neurogenic bladder Code(s): N31.9 - NEUROMUSCULAR DYSFUNCTION OF BLADDER, UNSPECIFIED (10) Sinus tachycardia Code(s): R00.0 - TACHYCARDIA, UNSPECIFIED (11) Thickened endometrium Code(s): R93.8 - ABNORMAL FINDINGS ON DIAGNOSTIC IMAGING OF APOORVA * DO NOT USE * (12) Elevated troponin Code(s): R74.8 - ABNORMAL LEVELS OF OTHER SERUM ENZYMES all cx reports noted plan abx await for cx reports will need change of suprapubic rest as per the team
[2018-09-30] MEDS ORDERED: PIPERACILLIN/TAZOB 3.375 GM 3.375 GM/50 ML BAG IVPB ONE (13:53)
--- NOTE | 2018-09-30 13:53 | CONSULT ---
Consult Consult Specialty:: Nephrology Reason for Consultation:: TANISHA - History of Present Illness Chief Complaint: sent in for tachycardia History of Present Illness: Pt is a 68 year old female with pmhx of multiple sclerosis, recurrent UTI, anemia and dysphagia who was sent in for tachycardia. She was found to have a UTI and found to be septic. I was called to evaluate her for TANISHA and hypernatremia. She is unable to give history. Her daughter is at bedside and was able to provide adequate history. Pt was febrile and tachycardic. She was given fluids and rates are improving. 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 Gastrointestinal: Yes: GERD Renal/: Yes: Neurogenic Bladder, Renal Calculi, UTI Infectious Disease: Yes: MRSA Rheumatology: Yes: Other (multiple sclerosis) Endocrine: Yes: Hypothyroidism - Past Surgical History Past Surgical History: Yes: Mastectomy - Alcohol/Substance Use Hx Alcohol Use: No History of Substance Use: reports: None - Smoking History Smoking history: Unknown if ever smoked Have you smoked in the past 12 months: No Aproximately how many cigarettes per day: 0 - Social History ADL: Support Services History of Recent Travel: No Home Medications - Allergies Allergies/Adverse Reactions: Allergies Allergy/AdvReac Type Severity Reaction Status Date / Time No Known Allergies Allergy Verified 03/07/18 14:12 - Home Medications Home Medications: Ambulatory Orders Acetaminophen 650 mg PO Q4H PRN 03/28/16 Cholecalciferol (Vitamin D3) [Vitamin D3] 1,000 unit PO DAILY 03/28/16 Levothyroxine [Synthroid -] 100 mcg PO DAILY 03/28/16 Multivitamin [Poly-Vitamin] 1 each PO DAILY 03/28/16 Tamoxifen Citrate 20 mg PO DAILY 03/28/16 Docusate Sodium [Colace -] 100 mg PO HS 06/07/16 Lactobacillus Acidophilus [Bacid -] 1 tab PO DAILY tab 06/11/16 Ascorbic Acid [Vitamin C] 500 mg PO DAILY 06/09/17 Enoxaparin Sodium 40 mg SQ DAILY 06/09/17 Ferrous Sulfate *Liquid* [Feosol *Liquid*] 300 mg PO DAILY 06/09/17 Zinc Sulfate 220 mg PO BID 06/09/17 Calcium Carbonate/Vitamin D3 [Oyster Shell 500-Vit D3 200 Tb] 1 each PO DAILY Interferon Beta-1A [Avonex] 30 mcg IM WEEKLY 02/13/18 Pantoprazole Sodium 40 mg PO DAILY 02/13/18 Polyethylene Glycol 3350 [Miralax 119 gm Btl -] 17 gm PO BID bottle 02/20/18 Sennosides [Senna -] 2 tab PO HS tablet 02/20/18 Fluconazole [Diflucan -] 100 mg PO DAILY 9 Days tablet 03/10/18 Family Disease History - Family Disease History Family History: Unable to Obtain Review of Systems Unable to obtain ROS, reason: pt is not verbal Physical Exam Vital Signs: Vital Signs Temperature 97.4 F L 09/30/18 08:41 Pulse Rate 131 H 09/30/18 08:41 Respiratory Rate 44 H 09/30/18 08:41 Blood Pressure 96/70 09/30/18 08:41 O2 Sat by Pulse Oximetry (%) 97 09/30/18 08:41 Constitutional: Yes: Mild Distress Eyes: Yes: Conjunctiva Clear HENT: Yes: Atraumatic Cardiovascular: Yes: Tachycardia, S1, S2 Respiratory: Yes: CTA Bilaterally, On Nasal O2 Gastrointestinal: Yes: Soft Renal/: Yes: Other Musculoskeletal: Yes: Muscle Weakness Edema: Yes Edema: LLE: Trace, RLE: Trace Neurological: Yes: Aphasia, Pre-Existing Deficit Labs: CBC, BMP 09/30/18 05:14 09/30/18 05:14 Microbiology Laboratory Tests 02/19/18 02/20/18 03/09/18 06:30 06:15 06:30 Sodium Potassium BUN Creatinine 0.5 L 0.4 L 0.3 L Urine Protein Urine Blood Ur Leukocyte Esterase Urine WBC (Auto) Urine RBC (Auto) 03/10/18 09/30/18 09/30/18 06:50 02:08 02:45 Sodium Potassium BUN Creatinine 0.3 L 1.6 H Urine Protein 4+ H Urine Blood 1+ H Ur Leukocyte Esterase 3+ H Urine WBC (Auto) >100 Urine RBC (Auto) 5-10 09/30/18 09/30/18 03:49 05:14 Sodium 151 H Potassium 3.5 BUN 42 H Creatinine 1.1 1.2 Urine Protein Urine Blood Ur Leukocyte Esterase Urine WBC (Auto) Urine RBC (Auto) Imaging - Results Chest X-ray: Report Reviewed Cat Scan: Report Reviewed Problem List - Problems (1) TANISHA (acute kidney injury) Code(s): N17.9 - ACUTE KIDNEY FAILURE, UNSPECIFIED (2) Hypernatremia Code(s): E87.0 - HYPEROSMOLALITY AND HYPERNATREMIA (3) Sepsis Code(s): A41.9 - SEPSIS, UNSPECIFIED ORGANISM Qualifiers: Sepsis type: sepsis due to unspecified organism Qualified Code(s): A41.9 - Sepsis, unspecified organism (4) UTI (urinary tract infection) Code(s): N39.0 - URINARY TRACT INFECTION, SITE NOT SPECIFIED Qualifiers: Urinary tract infection type: catheter-associated UTI Indwelling urinary catheter type: cystostomy catheter Encounter type: initial encounter Qualified Code(s): T83.510A - Infection and inflammatory reaction due to cystostomy catheter, initial encounter; N39.0 - Urinary tract infection, site not specified Assessment/Plan Current Medications Generic Name Dose Route Start Last Admin Trade Name Freq PRN Reason Stop Dose Admin Ascorbic Acid 500 mg 09/30/18 10:00 09/30/18 10:54 Vitamin C - PO 500 mg DAILY FARNAZ Administration Calcium Carbonate/Cholecalciferol 1 tab 09/30/18 10:00 09/30/18 10:54 Os-Mikie 500+D - PO 1 tab DAILY FARNAZ Administration Docusate Sodium 100 mg 09/30/18 22:00 Colace - PO HS FARNAZ Enoxaparin Sodium 40 mg 09/30/18 10:00 09/30/18 10:53 Lovenox - SQ 40 mg DAILY FARNAZ Administration Sodium Chloride 1,000 mls @ 200 mls/hr 09/30/18 03:45 09/30/18 03:56 1/2 Normal Saline IV 200 mls/hr ASDIR FARNAZ Administration Meropenem 500 mg/ Dextrose 100 mls @ 200 mls/hr 09/30/18 22:00 IVPB 10/01/18 21:59 BID FARNAZ Piperacillin Sod/Tazobactam 50 mls @ 100 mls/hr 09/30/18 13:00 Sod 3.375 gm/ Dextrose IVPB Q8H-IV FARNAZ Protocol Insulin Aspart 1 vial 09/30/18 06:00 09/30/18 09:19 Novolog Vial Sliding Scale - SQ 10 units Q6HPO FARNAZ Administration Protocol Levothyroxine Sodium 100 mcg 09/30/18 07:00 09/30/18 10:53 Synthroid - PO 100 mcg DAILY@0700 FARNZA Administration Multivitamins/Minerals/Vitamin C 1 tab 09/30/18 10:00 09/30/18 10:55 Tab-A-Vit - PO 1 tab DAILY FARNAZ Administration Pantoprazole Sodium 40 mg 09/30/18 10:00 09/30/18 10:54 Protonix - PO 40 mg DAILY FARNAZ Administration Polyethylene Glycol 17 gm 09/30/18 10:00 09/30/18 10:55 Miralax (For Daily Use) - PO 17 gm BID FARNAZ Administration Senna 2 tab 09/30/18 22:00 Senna - PO HS FARNAZ Tamoxifen Citrate 20 mg 09/30/18 10:00 09/30/18 10:54 Tamoxifen Citrate PO 20 mg DAILY FARNAZ Administration Zinc Sulfate 220 mg 09/30/18 10:00 09/30/18 10:54 Orazinc - PO 220 mg BID FARNAZ Administration Impression 1. TANISHA 2. UTI 3. sepsis 4. UTI 5. hypothyroidism 6. 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
[2018-09-30] MEDS: PIPERACILLIN/TAZOB 3.375 GM 3.375 GM in DEXTROSE 5%-WATER - 50 ML IVPB SCH ×2 (14:30→18:39)
[2018-09-30 14:40] LABS: ANION GAP 9 MMOL/L (8-16); BLOOD UREA NITROGEN 34 mg/dL (7-18); CALCIUM 7.9 mg/dL (8.5-10.1); CHLORIDE 122 mmol/L (98-107); CO2 23 mmol/L (21-32); GLUCOSE,RANDOM 284 mg/dL (74-106); POTASSIUM 3.1 mmol/L (3.5-5.1); SODIUM 154 mmol/L (136-145)
--- NOTE | 2018-09-30 17:35 | CON.CARD ---
Consult Consult Specialty:: Cardiology Reason for Consultation:: Elevated TP - History of Present Illness History of Present Illness: 68 year old female with pmhx of multiple sclerosis, recurrent UTI, anemia and dysphagia who was sent in for tachycardia. She was found to have a UTI and found to be septic. She is unable to give history. 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 Gastrointestinal: Yes: GERD Renal/: Yes: Neurogenic Bladder, Renal Calculi, UTI Infectious Disease: Yes: MRSA Rheumatology: Yes: Other (multiple sclerosis) Endocrine: Yes: Hypothyroidism - Past Surgical History Past Surgical History: Yes: Mastectomy - Alcohol/Substance Use Hx Alcohol Use: No History of Substance Use: reports: None - Smoking History Smoking history: Unknown if ever smoked Have you smoked in the past 12 months: No Aproximately how many cigarettes per day: 0 - Social History ADL: Support Services History of Recent Travel: No Home Medications - Allergies Allergies/Adverse Reactions: Allergies Allergy/AdvReac Type Severity Reaction Status Date / Time No Known Allergies Allergy Verified 03/07/18 14:12 - Home Medications Home Medications: Ambulatory Orders Acetaminophen 650 mg PO Q4H PRN 03/28/16 Cholecalciferol (Vitamin D3) [Vitamin D3] 1,000 unit PO DAILY 03/28/16 Levothyroxine [Synthroid -] 100 mcg PO DAILY 03/28/16 Multivitamin [Poly-Vitamin] 1 each PO DAILY 03/28/16 Tamoxifen Citrate 20 mg PO DAILY 03/28/16 Docusate Sodium [Colace -] 100 mg PO HS 06/07/16 Lactobacillus Acidophilus [Bacid -] 1 tab PO DAILY tab 06/11/16 Ascorbic Acid [Vitamin C] 500 mg PO DAILY 06/09/17 Enoxaparin Sodium 40 mg SQ DAILY 06/09/17 Ferrous Sulfate *Liquid* [Feosol *Liquid*] 300 mg PO DAILY 06/09/17 Zinc Sulfate 220 mg PO BID 06/09/17 Calcium Carbonate/Vitamin D3 [Oyster Shell 500-Vit D3 200 Tb] 1 each PO DAILY Interferon Beta-1A [Avonex] 30 mcg IM WEEKLY 02/13/18 Pantoprazole Sodium 40 mg PO DAILY 02/13/18 Polyethylene Glycol 3350 [Miralax 119 gm Btl -] 17 gm PO BID bottle 02/20/18 Sennosides [Senna -] 2 tab PO HS tablet 02/20/18 Fluconazole [Diflucan -] 100 mg PO DAILY 9 Days tablet 03/10/18 Family Disease History - Family Disease History Family History: Unable to Obtain Review of Systems Unable to obtain ROS, reason: Dementia Vital Signs: Vital Signs Temperature 98.9 F 09/30/18 16:25 Pulse Rate 130 H 09/30/18 16:25 Respiratory Rate 20 09/30/18 16:25 Blood Pressure 156/106 H 09/30/18 16:25 O2 Sat by Pulse Oximetry (%) 99 09/30/18 15:43 Constitutional: Yes: No Distress, Calm, Thin Eyes: Yes: Conjunctiva Clear, EOM Intact HENT: Yes: Atraumatic, Normocephalic Neck: Yes: Supple, Trachea Midline Respiratory: Yes: Regular, CTA Bilaterally Gastrointestinal: Yes: Normal Bowel Sounds, Soft JVD: No Carotid Bruit: No PMI: Non-Displaced Heart Sounds: Yes: S1, S2 Murmur: No: Systolic Murmur, Diastolic Murmur Edema: No - Other Data Labs, Other Data: CBC, BMP 09/30/18 05:14 09/30/18 13:28 INR, PTT INR 1.17 (0.83-1.09) H 09/30/18 02:08 Troponin, BNP 09/30/18 09/30/18 09/30/18 02:08 05:14 13:28 Troponin I 0.06 H 0.08 H 0.07 H Troponin, BNP 09/30/18 09/30/18 09/30/18 02:08 05:14 13:28 Troponin I 0.06 H 0.08 H 0.07 H Sinus tachycardia No ST changes. Problem List - Problems (1) Elevated troponin Code(s): R74.8 - ABNORMAL LEVELS OF OTHER SERUM ENZYMES Assessment/Plan 68 F with MS who is poorly responsive at baseline with suprapubic cath and recurrent UTI.She has sinus tachycardia in the setting of fever and sepsis. Her BP is stable. ECG shows n dynamic changes but she has minimal TP elevation in the setting of infection and sepsis. No cardiac interventions are advised in the setting. Continue management of her infections and hypernatremia. AC is not recommended. No further cardiac testing suggested. Will see as needed.
[2018-09-30] MEDS ORDERED: PIPERACILLIN/TAZOBACTAM 3.375 GM VIAL IVPB ONE (18:24)
[2018-09-30] MEDS ORDERED: DEXTROSE 5%-WATER - 50 ML IVPB ONE (18:26)
[2018-09-30] MEDS: SENNOSIDES 8.6MG TABLET (FP) PO SCH (21:19)
[2018-09-30] MEDS ORDERED: DOCUSATE SODIUM 100 MG CAPSULE (FP) PO SCH (22:00)
[2018-10-01] MEDS ORDERED: DEXTROSE 5%-WATER - 50 ML IVPB ONE ×3 (01:30→17:11)
[2018-10-01] MEDS ORDERED: PIPERACILLIN/TAZOBACTAM 3.375 GM VIAL IVPB ONE ×3 (01:30→17:11)
[2018-10-01] MEDS: PIPERACILLIN/TAZOB 3.375 GM 3.375 GM in DEXTROSE 5%-WATER - 50 ML IVPB SCH ×3 (01:43→17:14)
[2018-10-01] MEDS: SODIUM CHLORIDE 0.45% 1,000 ML IV SCH (03:45)
[2018-10-01] MEDS: INSULIN SLIDING SCALE (NOVOLOG) 1 VIAL SQ SCH ×3 (05:04→20:54)
[2018-10-01] MEDS: LEVOTHYROXINE NA 100 MCG TABLET (FP) PO SCH (06:08)
[2018-10-01 07:43] LABS: BASO % 0.5 % (0-2.0); EOS % 0.4 % (0-4.5); HEMATOCRIT 30.3 % (32.4-45.2); HEMOGLOBIN 9.6 GM/dL (10.7-15.3); LYMPH % 27.2 % (8-40); MCHC 31.8 g/dl (32.0-36.0); MEAN CELL VOLUME 87.9 fl (80-96); MEAN PLT VOLUME 10.4 fl (7.5-11.1); MONO % 3.2 % (3.8-10.2); NEUT % 68.7 % (42.8-82.8); PLATELET COUNT 188 K/MM3 (134-434); RBC 3.44 M/mm3 (3.60-5.2); WHITE BLOOD COUNT 10.2 K/mm3 (4.0-10.0)
[2018-10-01 08:04] LABS: ANION GAP 9 MMOL/L (8-16); BLOOD UREA NITROGEN 31 mg/dL (7-18); CALCIUM 7.2 mg/dL (8.5-10.1); CHLORIDE 120 mmol/L (98-107); CO2 20 mmol/L (21-32); CREATININE 0.6 mg/dL (0.55-1.3); GLUCOSE,RANDOM 149 mg/dL (74-106); MAGNESIUM 2.2 mg/dL (1.8-2.4); PHOSPHOROUS 2.1 mg/dL (2.5-4.9); SODIUM 149 mmol/L (136-145)
[2018-10-01 08:25] LABS: POTASSIUM 2.9 mmol/L (3.5-5.1)
[2018-10-01] MEDS ORDERED: PT OWN MED DRAWER 7, Y5N ONE (10:03)
[2018-10-01] MEDS: ENOXAPARIN NA (PORCINE) 40 MG/0.4 ML DISP.SYRIN SQ SCH (10:45)
[2018-10-01] MEDS: ZINC SULFATE 220 MG CAPSULE (FP) PO SCH ×2 (10:45→22:16)
[2018-10-01] MEDS: TAMOXIFEN CITRATE 10 MG TABLET PO SCH (10:45)
[2018-10-01] MEDS: CALCIUM 500MG/VIT-D 200 UNITS COMBO TABLET (FP) PO SCH (10:45)
[2018-10-01] MEDS: MULTIVITAMINS (DAILY MVI) TABLET (FP) PO SCH (10:45)
[2018-10-01] MEDS: KCL 10 MEQ IVPB 10 MEQ/100 ML INFUS.BAG IVPB SCH ×3 (10:46→15:34)
[2018-10-01] MEDS: PANTOPRAZOLE 40 MG TABLET (FP) PO SCH (10:46)
[2018-10-01] MEDS: ASCORBIC ACID 500 MG TABLET (FP) PO SCH (10:46)
[2018-10-01] MEDS: POLYETHYLENE GLYCOL 3350 119 GM BTL PO SCH ×2 (11:00→22:16)
--- NOTE | 2018-10-01 11:56 | PN ---
Progress Note, Physician History of Present Illness: improving says feels better awaiting for change - Current Medication List Current Medications: Active Medications Ascorbic Acid (Vitamin C -) 500 mg PO DAILY [facility] Last Admin: 10/01/18 10:46 Dose: 500 mg Calcium Carbonate/Cholecalciferol (Os-Mikie 500+D -) 1 tab PO DAILY [facility] Last Admin: 10/01/18 10:45 Dose: 1 tab Docusate Sodium (Colace -) 100 mg PO HS [facility] Last Admin: 09/30/18 21:19 Dose: 100 mg Enoxaparin Sodium (Lovenox -) 40 mg SQ DAILY [facility] Last Admin: 10/01/18 10:45 Dose: 40 mg Sodium Chloride (1/2 Normal Saline) 1,000 mls @ 200 mls/hr IV ASDIR [facility] Last Admin: 10/01/18 03:45 Dose: 200 mls/hr Meropenem 500 mg/ Dextrose 100 mls @ 200 mls/hr IVPB BID [facility] Stop: 10/01/18 21:59 Piperacillin Sod/Tazobactam (Sod 3.375 gm/ Dextrose) 50 mls @ 100 mls/hr IVPB Q8H-IV [facility]; Protocol Last Admin: 10/01/18 10:45 Dose: 100 mls/hr Potassium Chloride (Potassium Chloride 10 Meq Premix Ivpb -) 10 meq in 100 mls @ 100 mls/hr IVPB Q60M [facility] Stop: 10/01/18 12:59 Last Admin: 10/01/18 10:46 Dose: 100 mls/hr Insulin Aspart (Novolog Vial Sliding Scale -) 1 vial SQ Q6HPO [facility]; Protocol Last Admin: 10/01/18 05:04 Dose: Not Given Levothyroxine Sodium (Synthroid -) 100 mcg PO DAILY@0700 [facility] Last Admin: 10/01/18 06:08 Dose: 100 mcg Multivitamins/Minerals/Vitamin C (Tab-A-Vit -) 1 tab PO DAILY [facility] Last Admin: 10/01/18 10:45 Dose: 1 tab Pantoprazole Sodium (Protonix -) 40 mg PO DAILY [facility] Last Admin: 10/01/18 10:46 Dose: 40 mg Polyethylene Glycol (Miralax (For Daily Use) -) 17 gm PO BID [facility] Last Admin: 09/30/18 21:22 Dose: 17 gm Senna (Senna -) 2 tab PO HS [facility] Last Admin: 09/30/18 21:19 Dose: 2 tab Tamoxifen Citrate (Tamoxifen Citrate) 20 mg PO DAILY [facility] Last Admin: 10/01/18 10:45 Dose: 20 mg Zinc Sulfate (Orazinc -) 220 mg PO BID [facility] Last Admin: 10/01/18 10:45 Dose: 220 mg - Objective Vital Signs: Vital Signs Temperature 98.8 F 10/01/18 08:00 Pulse Rate 96 H 10/01/18 08:00 Respiratory Rate 20 10/01/18 09:00 Blood Pressure 114/69 10/01/18 08:00 O2 Sat by Pulse Oximetry (%) 97 10/01/18 09:00 Constitutional: Yes: No Distress, Calm Cardiovascular: Yes: S1, S2 Respiratory: Yes: Regular, CTA Bilaterally Gastrointestinal: Yes: Normal Bowel Sounds, Soft Genitourinary: Yes: Chopra Present Extremities: Yes: Other Neurological: Yes: Alert Psychiatric: Yes: Alert Labs: CBC, BMP 10/01/18 05:30 10/01/18 05:30 INR, PTT INR 1.17 (0.83-1.09) H 09/30/18 02:08 Assessment/Plan oblem List - Problems (1) Severe sepsis Code(s): A41.9 - SEPSIS, UNSPECIFIED ORGANISM; R65.20 - SEVERE SEPSIS WITHOUT SEPTIC SHOCK (2) UTI (urinary tract infection) Code(s): N39.0 - URINARY TRACT INFECTION, SITE NOT SPECIFIED Qualifiers: Urinary tract infection type: catheter-associated UTI Indwelling urinary catheter type: cystostomy catheter Encounter type: initial encounter Qualified Code(s): T83.510A - Infection and inflammatory reaction due to cystostomy catheter, initial encounter; N39.0 - Urinary tract infection, site not specified (3) Fecal impaction Code(s): K56.41 - FECAL IMPACTION (4) 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 Code(s): G35 - MULTIPLE SCLEROSIS; R53.2 - FUNCTIONAL QUADRIPLEGIA (5) Hypernatremia Code(s): E87.0 - HYPEROSMOLALITY AND HYPERNATREMIA (6) Hypothyroid Code(s): E03.9 - HYPOTHYROIDISM, UNSPECIFIED (7) Multiple sclerosis Code(s): G35 - MULTIPLE SCLEROSIS (8) Nephrolithiasis Code(s): N20.0 - CALCULUS OF KIDNEY (9) Neurogenic bladder Code(s): N31.9 - NEUROMUSCULAR DYSFUNCTION OF BLADDER, UNSPECIFIED (10) Sinus tachycardia Code(s): R00.0 - TACHYCARDIA, UNSPECIFIED (11) Thickened endometrium Code(s): R93.8 - ABNORMAL FINDINGS ON DIAGNOSTIC IMAGING OF APOORVA * DO NOT USE * (12) Elevated troponin Code(s): R74.8 - ABNORMAL LEVELS OF OTHER SERUM ENZYMES all cx reports noted plan abx await for cx reports will need change of suprapubic rest as per the team
--- NOTE | 2018-10-01 12:31 | PN ---
Progress Note, Physician Chief Complaint: Today Mrs Gerardo appears baseline. Smiling and saying she feels "fine" and "good". - Current Medication List Current Medications: Active Medications Ascorbic Acid (Vitamin C -) 500 mg PO DAILY [facility] Last Admin: 10/01/18 10:46 Dose: 500 mg Calcium Carbonate/Cholecalciferol (Os-Mikie 500+D -) 1 tab PO DAILY [facility] Last Admin: 10/01/18 10:45 Dose: 1 tab Docusate Sodium (Colace -) 100 mg PO HS [facility] Last Admin: 09/30/18 21:19 Dose: 100 mg Enoxaparin Sodium (Lovenox -) 40 mg SQ DAILY [facility] Last Admin: 10/01/18 10:45 Dose: 40 mg Sodium Chloride (1/2 Normal Saline) 1,000 mls @ 200 mls/hr IV ASDIR [facility] Last Admin: 10/01/18 03:45 Dose: 200 mls/hr Piperacillin Sod/Tazobactam (Sod 3.375 gm/ Dextrose) 50 mls @ 100 mls/hr IVPB Q8H-IV [facility]; Protocol Last Admin: 10/01/18 10:45 Dose: 100 mls/hr Potassium Chloride (Potassium Chloride 10 Meq Premix Ivpb -) 10 meq in 100 mls @ 100 mls/hr IVPB Q60M [facility] Stop: 10/01/18 12:59 Last Admin: 10/01/18 10:46 Dose: 100 mls/hr Potassium Phosphate 16 mm/ (Dextrose) 255.3333 mls @ 62.5 mls/hr IVPB ONCE ONE Stop: 10/01/18 16:34 Insulin Aspart (Novolog Vial Sliding Scale -) 1 vial SQ Q6HPO [facility]; Protocol Last Admin: 10/01/18 05:04 Dose: Not Given Levothyroxine Sodium (Synthroid -) 100 mcg PO DAILY@0700 [facility] Last Admin: 10/01/18 06:08 Dose: 100 mcg Multivitamins/Minerals/Vitamin C (Tab-A-Vit -) 1 tab PO DAILY [facility] Last Admin: 10/01/18 10:45 Dose: 1 tab Pantoprazole Sodium (Protonix -) 40 mg PO DAILY [facility] Last Admin: 10/01/18 10:46 Dose: 40 mg Polyethylene Glycol (Miralax (For Daily Use) -) 17 gm PO BID [facility] Last Admin: 09/30/18 21:22 Dose: 17 gm Senna (Senna -) 2 tab PO HS [facility] Last Admin: 09/30/18 21:19 Dose: 2 tab Tamoxifen Citrate (Tamoxifen Citrate) 20 mg PO DAILY [facility] Last Admin: 10/01/18 10:45 Dose: 20 mg Zinc Sulfate (Orazinc -) 220 mg PO BID [facility] Last Admin: 10/01/18 10:45 Dose: 220 mg - Objective Vital Signs: Vital Signs Temperature 37.1 C 10/01/18 08:00 Pulse Rate 96 H 10/01/18 08:00 Respiratory Rate 20 10/01/18 09:00 Blood Pressure 114/69 10/01/18 08:00 O2 Sat by Pulse Oximetry (%) 97 10/01/18 09:00 Constitutional: Yes: Well Nourished, No Distress, Calm Cardiovascular: Yes: Regular Rate and Rhythm. No: Gallop, Murmur, Rub Respiratory: Yes: Regular, CTA Bilaterally. No: Rales, Rhonchi, Wheezes Gastrointestinal: Yes: Normal Bowel Sounds, Soft. No: Distention, Tenderness Extremities: Yes: WNL Edema: No Labs: CBC, BMP 10/01/18 05:30 10/01/18 05:30 INR, PTT INR 1.17 (0.83-1.09) H 09/30/18 02:08 Problem List - Problems (1) Severe sepsis Code(s): A41.9 - SEPSIS, UNSPECIFIED ORGANISM; R65.20 - SEVERE SEPSIS WITHOUT SEPTIC SHOCK (2) UTI (urinary tract infection) Code(s): N39.0 - URINARY TRACT INFECTION, SITE NOT SPECIFIED Qualifiers: Urinary tract infection type: catheter-associated UTI Indwelling urinary catheter type: cystostomy catheter Encounter type: initial encounter Qualified Code(s): T83.510A - Infection and inflammatory reaction due to cystostomy catheter, initial encounter; N39.0 - Urinary tract infection, site not specified (3) Fecal impaction Code(s): K56.41 - FECAL IMPACTION (4) 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 Code(s): G35 - MULTIPLE SCLEROSIS; R53.2 - FUNCTIONAL QUADRIPLEGIA (5) Hypernatremia Code(s): E87.0 - HYPEROSMOLALITY AND HYPERNATREMIA (6) Hypothyroid Code(s): E03.9 - HYPOTHYROIDISM, UNSPECIFIED (7) Multiple sclerosis Code(s): G35 - MULTIPLE SCLEROSIS (8) Nephrolithiasis Code(s): N20.0 - CALCULUS OF KIDNEY (9) Neurogenic bladder Code(s): N31.9 - NEUROMUSCULAR DYSFUNCTION OF BLADDER, UNSPECIFIED (10) Sinus tachycardia Code(s): R00.0 - TACHYCARDIA, UNSPECIFIED (11) Thickened endometrium Code(s): R93.8 - ABNORMAL FINDINGS ON DIAGNOSTIC IMAGING OF APOORVA * DO NOT USE * (12) Elevated troponin Code(s): R74.8 - ABNORMAL LEVELS OF OTHER SERUM ENZYMES Assessment/Plan (1) Severe sepsis Assessment/Plan: -much improved -continue IVF and antibiotics -continue telemetry monitoring since with significant hypokalemia Code(s): A41.9 - SEPSIS, UNSPECIFIED ORGANISM; R65.20 - SEVERE SEPSIS WITHOUT SEPTIC SHOCK (2) UTI (urinary tract infection) Assessment/Plan: -urine cultures positive -case d/w Dr Fuchs -continue zosyn Code(s): N39.0 - URINARY TRACT INFECTION, SITE NOT SPECIFIED Qualifiers: Urinary tract infection type: catheter-associated UTI Indwelling urinary catheter type: cystostomy catheter Encounter type: initial encounter Qualified Code(s): T83.510A - Infection and inflammatory reaction due to cystostomy catheter, initial encounter; N39.0 - Urinary tract infection, site not specified (3) Fecal impaction Assessment/Plan: -with bowel movement -will increase colace to bid -continue miralax and senna Code(s): K56.41 - FECAL IMPACTION (4) 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 Assessment/Plan: -chronic Code(s): G35 - MULTIPLE SCLEROSIS; R53.2 - FUNCTIONAL QUADRIPLEGIA (5) Hypernatremia Assessment/Plan: -improving -continue 1/2 NS Code(s): E87.0 - HYPEROSMOLALITY AND HYPERNATREMIA (6) Hypothyroid Assessment/Plan: -restart synthroid now that her mental status is baseline Code(s): E03.9 - HYPOTHYROIDISM, UNSPECIFIED (7) Multiple sclerosis Assessment/Plan: -chronic Code(s): G35 - MULTIPLE SCLEROSIS (8) Nephrolithiasis Assessment/Plan: -chronic -increases risk of UTI and sepsis Code(s): N20.0 - CALCULUS OF KIDNEY (9) Neurogenic bladder Assessment/Plan: -suprapubic catheter placed -urology consult placed for replacement Code(s): N31.9 - NEUROMUSCULAR DYSFUNCTION OF BLADDER, UNSPECIFIED (10) Sinus tachycardia Assessment/Plan: -resolving Code(s): R00.0 - TACHYCARDIA, UNSPECIFIED (11) Thickened endometrium Assessment/Plan: -chronic Code(s): R93.8 - ABNORMAL FINDINGS ON DIAGNOSTIC IMAGING OF APOORVA * DO NOT USE * (12) Elevated troponin Assessment/Plan: -appreciate cardiology assistance -stress induced Code(s): R74.8 - ABNORMAL LEVELS OF OTHER SERUM ENZYMES (13) FEN -replace K and Phos -start diet
[2018-10-01] MEDS ORDERED: POTASSIUM PHOSPHATE 16 MM in DEXTROSE 5%-WATER - 250 ML IVPB ONE (13:30)
[2018-10-01 15:08] VITALS: BMI 22.4
--- NOTE | 2018-10-01 18:24 | PN ---
Progress Note, Physician History of Present Illness: Pt seen and examined at bedside. She is more awake and interactive than she was yesterday. - Current Medication List Current Medications: Active Medications Ascorbic Acid (Vitamin C -) 500 mg PO DAILY [facility] Last Admin: 10/01/18 10:46 Dose: 500 mg Calcium Carbonate/Cholecalciferol (Os-Mikie 500+D -) 1 tab PO DAILY [facility] Last Admin: 10/01/18 10:45 Dose: 1 tab Docusate Sodium (Colace -) 100 mg PO BID [facility] Enoxaparin Sodium (Lovenox -) 40 mg SQ DAILY [facility] Last Admin: 10/01/18 10:45 Dose: 40 mg Sodium Chloride (1/2 Normal Saline) 1,000 mls @ 200 mls/hr IV ASDIR [facility] Last Admin: 10/01/18 03:45 Dose: 200 mls/hr Piperacillin Sod/Tazobactam (Sod 3.375 gm/ Dextrose) 50 mls @ 100 mls/hr IVPB Q8H-IV [facility]; Protocol Last Admin: 10/01/18 17:14 Dose: 100 mls/hr Insulin Aspart (Novolog Vial Sliding Scale -) 1 vial SQ Q6HPO [facility]; Protocol Last Admin: 10/01/18 14:22 Dose: Not Given Levothyroxine Sodium (Synthroid -) 100 mcg PO DAILY@0700 [facility] Last Admin: 10/01/18 06:08 Dose: 100 mcg Multivitamins/Minerals/Vitamin C (Tab-A-Vit -) 1 tab PO DAILY [facility] Last Admin: 10/01/18 10:45 Dose: 1 tab Pantoprazole Sodium (Protonix -) 40 mg PO DAILY [facility] Last Admin: 10/01/18 10:46 Dose: 40 mg Polyethylene Glycol (Miralax (For Daily Use) -) 17 gm PO BID [facility] Last Admin: 09/30/18 21:22 Dose: 17 gm Senna (Senna -) 2 tab PO HS [facility] Last Admin: 09/30/18 21:19 Dose: 2 tab Tamoxifen Citrate (Tamoxifen Citrate) 20 mg PO DAILY [facility] Last Admin: 10/01/18 10:45 Dose: 20 mg Zinc Sulfate (Orazinc -) 220 mg PO BID [facility] Last Admin: 10/01/18 10:45 Dose: 220 mg - Objective Vital Signs: Vital Signs Temperature 98.8 F 10/01/18 08:00 Pulse Rate 96 H 10/01/18 08:00 Respiratory Rate 20 10/01/18 09:00 Blood Pressure 114/69 10/01/18 08:00 O2 Sat by Pulse Oximetry (%) 97 10/01/18 09:00 Constitutional: Yes: Calm Eyes: Yes: Conjunctiva Clear HENT: Yes: Atraumatic Neck: Yes: Supple Cardiovascular: Yes: S1, S2 Respiratory: Yes: On Nasal O2 Gastrointestinal: Yes: Soft Genitourinary: Yes: Other (catheter) Musculoskeletal: Yes: Muscle Weakness Edema: Yes Edema: LLE: Trace, RLE: Trace Neurological: Yes: Pre-Existing Deficit Labs: CBC, BMP 10/01/18 05:30 10/01/18 05:30 INR, PTT INR 1.17 (0.83-1.09) H 09/30/18 02:08 Problem List - Problems (1) TANISHA (acute kidney injury) Code(s): N17.9 - ACUTE KIDNEY FAILURE, UNSPECIFIED (2) Hypernatremia Code(s): E87.0 - HYPEROSMOLALITY AND HYPERNATREMIA (3) Sepsis Code(s): A41.9 - SEPSIS, UNSPECIFIED ORGANISM Qualifiers: Sepsis type: sepsis due to unspecified organism Qualified Code(s): A41.9 - Sepsis, unspecified organism (4) UTI (urinary tract infection) Code(s): N39.0 - URINARY TRACT INFECTION, SITE NOT SPECIFIED Qualifiers: Urinary tract infection type: catheter-associated UTI Indwelling urinary catheter type: cystostomy catheter Encounter type: initial encounter Qualified Code(s): T83.510A - Infection and inflammatory reaction due to cystostomy catheter, initial encounter; N39.0 - Urinary tract infection, site not specified Assessment/Plan Current Medications Generic Name Dose Route Start Last Admin Trade Name Freq PRN Reason Stop Dose Admin Ascorbic Acid 500 mg 09/30/18 10:00 10/01/18 10:46 Vitamin C - PO 500 mg DAILY [facility] Administration Calcium Carbonate/Cholecalciferol 1 tab 09/30/18 10:00 10/01/18 10:45 Os-Mikie 500+D - PO 1 tab DAILY [facility] Administration Docusate Sodium 100 mg 10/01/18 22:00 Colace - PO BID [facility] Enoxaparin Sodium 40 mg 09/30/18 10:00 10/01/18 10:45 Lovenox - SQ 40 mg DAILY [facility] Administration Sodium Chloride 1,000 mls @ 200 mls/hr 09/30/18 03:45 10/01/18 03:45 1/2 Normal Saline IV 200 mls/hr ASDIR [facility] Administration Piperacillin Sod/Tazobactam 50 mls @ 100 mls/hr 09/30/18 13:00 10/01/18 17:14 Sod 3.375 gm/ Dextrose IVPB 100 mls/hr Q8H-IV [facility] Administration Protocol Insulin Aspart 1 vial 09/30/18 06:00 10/01/18 14:22 Novolog Vial Sliding Scale - SQ Not Given Q6HPO [facility] Protocol Levothyroxine Sodium 100 mcg 09/30/18 07:00 10/01/18 06:08 Synthroid - PO 100 mcg DAILY@0700 [facility] Administration Multivitamins/Minerals/Vitamin C 1 tab 09/30/18 10:00 10/01/18 10:45 Tab-A-Vit - PO 1 tab DAILY [facility] Administration Pantoprazole Sodium 40 mg 09/30/18 10:00 10/01/18 10:46 Protonix - PO 40 mg DAILY [facility] Administration Polyethylene Glycol 17 gm 09/30/18 10:00 09/30/18 21:22 Miralax (For Daily Use) - PO 17 gm BID [facility] Administration Senna 2 tab 09/30/18 22:00 09/30/18 21:19 Senna - PO 2 tab HS [facility] Administration Tamoxifen Citrate 20 mg 09/30/18 10:00 10/01/18 10:45 Tamoxifen Citrate PO 20 mg DAILY [facility] Administration Zinc Sulfate 220 mg 09/30/18 10:00 10/01/18 10:45 Orazinc - PO 220 mg BID [facility] Administration Impression 1. TANISHA 2. UTI 3. sepsis 4. UTI 5. hypothyroidism 6. multiple sclerosis 7. hypokalemia 8. nephrolithiasis Plan - renal function is improving - replace potassium - will also add potassium to fluids - sodium is improving - monitor lytes - water deficit improving - will follow Dr Mcdonough
--- NOTE | 2018-10-01 21:15 | CONS ---
DATE OF CONSULTATION: DATE OF DICTATION: 10/01/2018 The patient is a 68-year-old female, well known to me for a past history of neurogenic bladder and recurrent urinary tract infections. She was admitted to the hospital on September 30, 2018, with urosepsis. Patient does have history of multiple sclerosis as well as neurogenic bladder. She has had a suprapubic catheter placed several years ago. She does have history of anemia. She also has history of recurrent drug-resistant urinary tract infections. The patient also complains of dysphagia as well as generalized muscle spasms. She was found to have tachycardia in the emergency room. She also did have a temperature. Her heart rate was greater than 170 beats per minute. She denies any drug allergies. In the emergency room, she was found to be afebrile. Her abdomen is soft. Her temperature was 102.9, pulse rate was 172, respirations 48 and regular, blood pressure 136/72, O2 saturation on room air was 90. The patient was breathing heavily. Her neck was supple, no masses were palpated. Her lungs were clear to auscultation and percussion. Her heart rate was regular rhythm but rapid. Her abdomen was soft. There was no CVA tenderness. A suprapubic catheter was seen protruding from the lower abdomen. The tract appeared to be indurated as well as inflamed with granulation tissue surrounding the tract, with areas of bleeding. Her white count was 24,400, hemoglobin 12.9, hematocrit 42.1, platelets 400. The patient's BUN was 56 and creatinine 1.6. Random glucose was 440. Her sodium was 155, chloride was 122. Liver enzymes were slightly elevated. The patient's urine revealed a large amount of red blood cells as well as white blood cells, nitrites were negative. IMPRESSION AT PRESENT: A 68-year-old female with history of multiple sclerosis, spastic paraplegia, neurogenic bladder with suprapubic catheter, chronic anemia, history of recurrent drug-resistant urinary tract infections, admitted with sinus tachycardia. Sepsis must be ruled out. Patient also appears to have acute renal injury as well as hypernatremia secondary to dehydration. Also she is hyperglycemic with a glucose of 440. Will recommend a renal and pelvic ultrasound to check her upper tract. Will also recommend a cystoscopy and change her suprapubic tube when patient is medically stable. Will follow with you. Ozzy [id number]
[2018-10-01] MEDS: DOCUSATE SODIUM 100 MG CAPSULE (FP) PO SCH (22:16)
[2018-10-01] MEDS: SENNOSIDES 8.6MG TABLET (FP) PO SCH (22:17)
[2018-10-01] MEDS: SODIUM CHLORIDE 0.45% 1,000 ML with POTASSIUM CHLORIDE 20 MEQ IV SCH (22:26)
[2018-10-02] MEDS: INSULIN SLIDING SCALE (NOVOLOG) 1 VIAL SQ SCH ×4 (00:03→18:00)
[2018-10-02] MEDS ORDERED: PIPERACILLIN/TAZOBACTAM 3.375 GM VIAL IVPB ONE ×3 (01:10→17:27)
[2018-10-02] MEDS ORDERED: DEXTROSE 5%-WATER - 50 ML IVPB ONE ×3 (01:10→17:28)
[2018-10-02] MEDS: PIPERACILLIN/TAZOB 3.375 GM 3.375 GM in DEXTROSE 5%-WATER - 50 ML IVPB SCH ×3 (01:40→17:31)
[2018-10-02] MEDS: LEVOTHYROXINE NA 100 MCG TABLET (FP) PO SCH (06:10)
[2018-10-02 06:56] LABS: BASO % 0.2 % (0-2.0); EOS % 1.6 % (0-4.5); HEMATOCRIT 26.4 % (32.4-45.2); HEMOGLOBIN 8.6 GM/dL (10.7-15.3); LYMPH % 27.3 % (8-40); MCH 28.2 pg (25.7-33.7); MCHC 32.7 g/dl (32.0-36.0); MEAN CELL VOLUME 86.4 fl (80-96); MEAN PLT VOLUME 10.4 fl (7.5-11.1); MONO % 2.5 % (3.8-10.2); NEUT % 68.4 % (42.8-82.8); PLATELET COUNT 184 K/MM3 (134-434); RBC 3.06 M/mm3 (3.60-5.2); RDW 15.5 % (11.6-15.6)
[2018-10-02 07:01] LABS: ANION GAP 7 MMOL/L (8-16); BLOOD UREA NITROGEN 21 mg/dL (7-18); CALCIUM 7.2 mg/dL (8.5-10.1); CHLORIDE 119 mmol/L (98-107); CO2 20 mmol/L (21-32); CREATININE 0.4 mg/dL (0.55-1.3); GLUCOSE,RANDOM 120 mg/dL (74-106); MAGNESIUM 2.2 mg/dL (1.8-2.4); PHOSPHOROUS 2.9 mg/dL (2.5-4.9); POTASSIUM 3.8 mmol/L (3.5-5.1); SODIUM 145 mmol/L (136-145)
--- NOTE | 2018-10-02 08:57 | PN ---
DATE OF VISIT: DATE OF DICTATION: 10/01/2018 Patient is a 68-year-old female with urinary tract infection, history of bilateral nephrolithiasis, and neurogenic bladder requiring a suprapubic catheter. Her maximum temperature was 98.8, blood pressure is 101/65, pulse is 95, respirations are 20 and regular. Microbiology revealed non-lactose fermenting bacteria as well as . Blood cultures revealed no growth after 24 hours. Her latest labs reveal a white count of 10,200, hemoglobin 9.6, hematocrit 30.3. Her platelets are 188. Her BUN is 31 and creatinine is 0.6. Her glucose is 149. The patient took in 2000 mL of normal saline and the output from the Chopra catheter was 2050. A CAT scan of her abdomen revealed bilateral hydroureteronephrosis with a right renal staghorn calculus. There are multiple small stones in the left kidney. The bladder appears to be distended. A Chopra catheter is within the bladder. There also appears to be a large amount of stool in the rectosigmoid colon indicative of fecal impaction. Patient also has an enlarged and elongated uterus with suggestion of thickening of the endometrial strip. Possible tiny calcified fibroids are also present. She also has mild hepatomegaly versus [place] lobe. IMPRESSION: At present, is bilateral hydroureteronephrosis, bilateral renal and ureteral stones, a right staghorn kidney stone. PLAN: Patient will need a cystoscopy and bilateral ureteroscopic laser lithotripsy as well as bilateral stent placement. This can be done at the same time as she undergoes a suprapubic Chopra change. Will follow with you. Will also recommend a diuretic nuclear scan to differentiate the function of the kidneys. KAMARI GUTIERREZ M.D. [id number]
[2018-10-02] MEDS ORDERED: PT OWN MED DRAWER 7, Y5N ONE (09:41)
[2018-10-02] MEDS: ENOXAPARIN NA (PORCINE) 40 MG/0.4 ML DISP.SYRIN SQ SCH (10:25)
[2018-10-02] MEDS: DOCUSATE SODIUM 100 MG CAPSULE (FP) PO SCH (10:26)
[2018-10-02] MEDS: ASCORBIC ACID 500 MG TABLET (FP) PO SCH (10:26)
[2018-10-02] MEDS: MULTIVITAMINS (DAILY MVI) TABLET (FP) PO SCH (10:26)
[2018-10-02] MEDS: PANTOPRAZOLE 40 MG TABLET (FP) PO SCH (10:26)
[2018-10-02] MEDS: ZINC SULFATE 220 MG CAPSULE (FP) PO SCH ×2 (10:26→22:53)
--- NOTE | 2018-10-02 10:50 | PN ---
Teaching Attending Note Name of Resident: Sachin John ATTENDING PHYSICIAN STATEMENT I saw and evaluated the patient. I reviewed the resident's note and discussed the case with the resident. I agree with the resident's findings and plan as documented. SUBJECTIVE: Ms Gerardo says she feels fine. Cannot obtain further subjective as she normally says she feels fine. At her baseline mental status OBJECTIVE: Last Vital Signs Temp Pulse Resp BP Pulse Ox 36.6 C 88 20 104/67 97 10/02/18 09:37 10/02/18 09:37 10/02/18 09:37 10/02/18 09:37 10/01/18 21:00 Gen: nad Pulm: ctab w/o w/r/r CV: rrr w/o m/r/g Abd: +bs, s/nt, slight distention Ext: no c/c/e CBC, BMP 10/02/18 05:30 10/02/18 05:30 ASSESSMENT AND PLAN: (1) Severe sepsis Assessment/Plan: -resolving Code(s): A41.9 - SEPSIS, UNSPECIFIED ORGANISM; R65.20 - SEVERE SEPSIS WITHOUT SEPTIC SHOCK (2) UTI (urinary tract infection) Assessment/Plan: -polymicrobial -first two organisms sensitive to zosyn -continue zosyn per ID -plan for cystoscopy and suprapubic catheter change per urology Code(s): N39.0 - URINARY TRACT INFECTION, SITE NOT SPECIFIED Qualifiers: Urinary tract infection type: catheter-associated UTI Indwelling urinary catheter type: cystostomy catheter Encounter type: initial encounter Qualified Code(s): T83.510A - Infection and inflammatory reaction due to cystostomy catheter, initial encounter; N39.0 - Urinary tract infection, site not specified (3) Fecal impaction Assessment/Plan: -continue bowel regimen Code(s): K56.41 - FECAL IMPACTION (4) 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 Assessment/Plan: -chronic Code(s): G35 - MULTIPLE SCLEROSIS; R53.2 - FUNCTIONAL QUADRIPLEGIA (5) Hypernatremia Assessment/Plan: -appreciate nephrology assistance -fluids changed to NS with KCl -resolving Code(s): E87.0 - HYPEROSMOLALITY AND HYPERNATREMIA (6) Hypothyroid Assessment/Plan: -continue synthroid Code(s): E03.9 - HYPOTHYROIDISM, UNSPECIFIED (7) Multiple sclerosis Assessment/Plan: -chronic Code(s): G35 - MULTIPLE SCLEROSIS (8) Nephrolithiasis Assessment/Plan: -chronic -increases risk of UTI and sepsis Code(s): N20.0 - CALCULUS OF KIDNEY (9) Neurogenic bladder Assessment/Plan: -as above Code(s): N31.9 - NEUROMUSCULAR DYSFUNCTION OF BLADDER, UNSPECIFIED (10) Sinus tachycardia Assessment/Plan: -resolved Code(s): R00.0 - TACHYCARDIA, UNSPECIFIED (11) Thickened endometrium Assessment/Plan: -chronic Code(s): R93.8 - ABNORMAL FINDINGS ON DIAGNOSTIC IMAGING OF APOORVA * DO NOT USE * (12) Elevated troponin Assessment/Plan: -appreciate cardiology assistance -stress induced Code(s): R74.8 - ABNORMAL LEVELS OF OTHER SERUM ENZYMES (13) FEN -electrolytes replaced Problem List - Problems (1) Severe sepsis Code(s): A41.9 - SEPSIS, UNSPECIFIED ORGANISM; R65.20 - SEVERE SEPSIS WITHOUT SEPTIC SHOCK (2) UTI (urinary tract infection) Code(s): N39.0 - URINARY TRACT INFECTION, SITE NOT SPECIFIED Qualifiers: Urinary tract infection type: catheter-associated UTI Indwelling urinary catheter type: cystostomy catheter Encounter type: initial encounter Qualified Code(s): T83.510A - Infection and inflammatory reaction due to cystostomy catheter, initial encounter; N39.0 - Urinary tract infection, site not specified (3) Fecal impaction Code(s): K56.41 - FECAL IMPACTION (4) 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 Code(s): G35 - MULTIPLE SCLEROSIS; R53.2 - FUNCTIONAL QUADRIPLEGIA (5) Hypernatremia Code(s): E87.0 - HYPEROSMOLALITY AND HYPERNATREMIA (6) Hypothyroid Code(s): E03.9 - HYPOTHYROIDISM, UNSPECIFIED (7) Multiple sclerosis Code(s): G35 - MULTIPLE SCLEROSIS (8) Nephrolithiasis Code(s): N20.0 - CALCULUS OF KIDNEY (9) Neurogenic bladder Code(s): N31.9 - NEUROMUSCULAR DYSFUNCTION OF BLADDER, UNSPECIFIED (10) Sinus tachycardia Code(s): R00.0 - TACHYCARDIA, UNSPECIFIED (11) Thickened endometrium Code(s): R93.8 - ABNORMAL FINDINGS ON DIAGNOSTIC IMAGING OF APOORVA * DO NOT USE * (12) Elevated troponin Code(s): R74.8 - ABNORMAL LEVELS OF OTHER SERUM ENZYMES
[2018-10-02] MEDS: CALCIUM 500MG/VIT-D 200 UNITS COMBO TABLET (FP) PO SCH (12:00)
[2018-10-02] MEDS: TAMOXIFEN CITRATE 10 MG TABLET PO SCH (12:00)
--- NOTE | 2018-10-02 14:35 | PN ---
Progress Note, Physician History of Present Illness: patient looks good says she is in no distress - Current Medication List Current Medications: Active Medications Ascorbic Acid (Vitamin C -) 500 mg PO DAILY [facility] Last Admin: 10/02/18 10:26 Dose: 500 mg Calcium Carbonate/Cholecalciferol (Os-Mikie 500+D -) 1 tab PO DAILY [facility] Last Admin: 10/01/18 10:45 Dose: 1 tab Docusate Sodium (Colace Liquid -) 100 mg PO BID [facility] Enoxaparin Sodium (Lovenox -) 40 mg SQ DAILY [facility] Last Admin: 10/02/18 10:25 Dose: 40 mg Piperacillin Sod/Tazobactam (Sod 3.375 gm/ Dextrose) 50 mls @ 100 mls/hr IVPB Q8H-IV [facility]; Protocol Last Admin: 10/02/18 10:27 Dose: 100 mls/hr Potassium Chloride 20 meq/ (Sodium Chloride) 1,010 mls @ 100 mls/hr IV ASDIR [facility] Last Admin: 10/01/18 22:26 Dose: 100 mls/hr Insulin Aspart (Novolog Vial Sliding Scale -) 1 vial SQ Q6HPO [facility]; Protocol Last Admin: 10/02/18 05:34 Dose: Not Given Levothyroxine Sodium (Synthroid -) 100 mcg PO DAILY@0700 [facility] Last Admin: 10/02/18 06:10 Dose: 100 mcg Multivitamins/Minerals/Vitamin C (Tab-A-Vit -) 1 tab PO DAILY [facility] Last Admin: 10/02/18 10:26 Dose: 1 tab Pantoprazole Sodium (Protonix -) 40 mg PO DAILY [facility] Last Admin: 10/02/18 10:26 Dose: 40 mg Polyethylene Glycol (Miralax (For Daily Use) -) 17 gm PO BID [facility] Last Admin: 10/01/18 22:16 Dose: 17 gm Senna (Senna -) 2 tab PO HS [facility] Last Admin: 10/01/18 22:17 Dose: 2 tab Tamoxifen Citrate (Tamoxifen Citrate) 20 mg PO DAILY [facility] Last Admin: 10/01/18 10:45 Dose: 20 mg Zinc Sulfate (Orazinc -) 220 mg PO BID [facility] Last Admin: 10/02/18 10:26 Dose: 220 mg - Objective Vital Signs: Vital Signs Temperature 97.8 F 10/02/18 09:37 Pulse Rate 88 10/02/18 09:37 Respiratory Rate 20 10/02/18 09:37 Blood Pressure 104/67 10/02/18 09:37 O2 Sat by Pulse Oximetry (%) 97 10/02/18 09:00 Constitutional: Yes: No Distress, Calm Cardiovascular: Yes: S1, S2 Respiratory: Yes: Regular, CTA Bilaterally Gastrointestinal: Yes: Normal Bowel Sounds, Soft Genitourinary: Yes: Other (suprapubic) Musculoskeletal: Yes: WNL Extremities: Yes: WNL Neurological: Yes: Alert Psychiatric: Yes: Alert Labs: CBC, BMP 10/02/18 05:30 10/02/18 05:30 INR, PTT INR 1.17 (0.83-1.09) H 09/30/18 02:08 Assessment/Plan oblem List - Problems (1) Severe sepsis Code(s): A41.9 - SEPSIS, UNSPECIFIED ORGANISM; R65.20 - SEVERE SEPSIS WITHOUT SEPTIC SHOCK (2) UTI (urinary tract infection) Code(s): N39.0 - URINARY TRACT INFECTION, SITE NOT SPECIFIED Qualifiers: Urinary tract infection type: catheter-associated UTI Indwelling urinary catheter type: cystostomy catheter Encounter type: initial encounter Qualified Code(s): T83.510A - Infection and inflammatory reaction due to cystostomy catheter, initial encounter; N39.0 - Urinary tract infection, site not specified (3) Fecal impaction Code(s): K56.41 - FECAL IMPACTION (4) 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 Code(s): G35 - MULTIPLE SCLEROSIS; R53.2 - FUNCTIONAL QUADRIPLEGIA (5) Hypernatremia Code(s): E87.0 - HYPEROSMOLALITY AND HYPERNATREMIA (6) Hypothyroid Code(s): E03.9 - HYPOTHYROIDISM, UNSPECIFIED (7) Multiple sclerosis Code(s): G35 - MULTIPLE SCLEROSIS (8) Nephrolithiasis Code(s): N20.0 - CALCULUS OF KIDNEY (9) Neurogenic bladder Code(s): N31.9 - NEUROMUSCULAR DYSFUNCTION OF BLADDER, UNSPECIFIED (10) Sinus tachycardia Code(s): R00.0 - TACHYCARDIA, UNSPECIFIED (11) Thickened endometrium Code(s): R93.8 - ABNORMAL FINDINGS ON DIAGNOSTIC IMAGING OF APOORVA * DO NOT USE * (12) Elevated troponin Code(s): R74.8 - ABNORMAL LEVELS OF OTHER SERUM ENZYMES plan will continue abx await for identification of the organisms urology rest as per the team
--- NOTE | 2018-10-02 16:43 | PN ---
Physical Exam: SUBJECTIVE: Patient seen and examined at bedside. Pt awake and interactive today but unable to give history. Keeps answering either "no pain" or "good". OBJECTIVE: Vital Signs Temperature 97.8 F 10/02/18 09:37 Pulse Rate 88 10/02/18 09:37 Respiratory Rate 20 10/02/18 09:37 Blood Pressure 104/67 10/02/18 09:37 O2 Sat by Pulse Oximetry (%) 97 10/02/18 09:00 GENERAL: The patient is awake and interactive. Tracks position around room. EYES: sclera anicteric, conjunctiva clear. ENT: nares patent LUNGS: Poor inspiratory effort. HEART: Regular rate and rhythm, S1, S2. ABDOMEN: Soft, nontender, normoactive bowel sounds, mild distension at suprapubic region with no tenderness to palpation. EXTREMITIES: warm, well-perfused, 1+ b/l LE pitting edema NEUROLOGICAL: Dementia PSYCH: Dementia SKIN: Warm, dry Laboratory Results - last 24 hr 10/01/18 10/01/18 10/02/18 18:52 22:21 05:10 WBC RBC Hgb Hct MCV MCH MCHC RDW Plt Count MPV Absolute Neuts (auto) Neutrophils % Lymphocytes % Monocytes % Eosinophils % Basophils % Nucleated RBC % Sodium Potassium Chloride Carbon Dioxide Anion Gap BUN Creatinine Creat Clearance w eGFR POC Glucometer 146 173 117 Random Glucose Calcium Phosphorus Magnesium 10/02/18 10/02/18 05:30 05:30 WBC 9.0 RBC 3.06 L Hgb 8.6 L Hct 26.4 L MCV 86.4 MCH 28.2 MCHC 32.7 RDW 15.5 Plt Count 184 MPV 10.4 Absolute Neuts (auto) 6.1 Neutrophils % 68.4 Lymphocytes % 27.3 Monocytes % 2.5 L Eosinophils % 1.6 D Basophils % 0.2 Nucleated RBC % 0 Sodium 145 Potassium 3.8 Chloride 119 H Carbon Dioxide 20 L Anion Gap 7 L BUN 21 H Creatinine 0.4 L Creat Clearance w eGFR 159.70 POC Glucometer Random Glucose 120 H Calcium 7.2 L Phosphorus 2.9 Magnesium 2.2 Active Medications Generic Name Dose Route Start Last Admin Trade Name Freq PRN Reason Stop Dose Admin Ascorbic Acid 500 mg 09/30/18 10:00 10/02/18 10:26 Vitamin C - PO 500 mg DAILY [facility] Administration Calcium Carbonate/Cholecalciferol 1 tab 09/30/18 10:00 10/01/18 10:45 Os-Mikie 500+D - PO 1 tab DAILY [facility] Administration Docusate Sodium 100 mg 10/02/18 11:00 Colace Liquid - PO BID [facility] Enoxaparin Sodium 40 mg 09/30/18 10:00 10/02/18 10:25 Lovenox - SQ 40 mg DAILY [facility] Administration Piperacillin Sod/Tazobactam 50 mls @ 100 mls/hr 09/30/18 13:00 10/02/18 10:27 Sod 3.375 gm/ Dextrose IVPB 100 mls/hr Q8H-IV [facility] Administration Protocol Potassium Chloride 20 meq/ 1,010 mls @ 100 mls/hr 10/01/18 18:30 10/01/18 22: 26 Sodium Chloride IV 100 mls/hr ASDIR [facility] Administration Insulin Aspart 1 vial 09/30/18 06:00 10/02/18 05:34 Novolog Vial Sliding Scale - SQ Not Given Q6HPO [facility] Protocol Levothyroxine Sodium 100 mcg 09/30/18 07:00 10/02/18 06:10 Synthroid - PO 100 mcg DAILY@0700 [facility] Administration Multivitamins/Minerals/Vitamin C 1 tab 09/30/18 10:00 10/02/18 10:26 Tab-A-Vit - PO 1 tab DAILY [facility] Administration Pantoprazole Sodium 40 mg 09/30/18 10:00 10/02/18 10:26 Protonix - PO 40 mg DAILY [facility] Administration Polyethylene Glycol 17 gm 09/30/18 10:00 10/01/18 22:16 Miralax (For Daily Use) - PO 17 gm BID [facility] Administration Senna 2 tab 09/30/18 22:00 10/01/18 22:17 Senna - PO 2 tab HS [facility] Administration Tamoxifen Citrate 20 mg 09/30/18 10:00 10/01/18 10:45 Tamoxifen Citrate PO 20 mg DAILY [facility] Administration Zinc Sulfate 220 mg 09/30/18 10:00 10/02/18 10:26 Orazinc - PO 220 mg BID [facility] Administration ASSESSMENT/PLAN: 68 y/o F w/PMH of MS, neurogenic bladder d/o (s/p suprapubic catheter), anemia, recurrent drug resistant UTIs, dysphagia presented from [place] for tachycardia and found to be septic secondary to UTI. -Sepsis secondary to UTI -improving -f/u cultures, c/w zosyn -NS + 20meq KCl @ 100 ml/hr -ID on board -has nephrolithiasis which can be source of recurrent nephrolithiasis -planned for cystoscopy and change of suprapubic catheter by urology. -Constipation -senna, miralax, colace -MS -chronic -Hypothyroidism -c/w synthroid -Elevated trops -cardiology on board -DVT ppx -Lovenox 40 mg sq qd -FEN -NS +20meq KCl @ 100ml/hr -Monitor electrolytes -Dysphagia puree diet -Dispo: continue to monitor on tele. Visit type - Emergency Visit Emergency Visit: Yes ED Registration Date: 09/30/18 Care time: The patient presented to the Emergency Department on the above date and was hospitalized for further evaluation of their emergent condition. - New Patient This patient is new to me today: Yes Date on this admission: 10/02/18 - Critical Care Critical Care patient: No
--- NOTE | 2018-10-02 17:30 | PN ---
Progress Note, Physician History of Present Illness: Pt seen and examined at bedside. She appears more comfortable today. - Current Medication List Current Medications: Active Medications Ascorbic Acid (Vitamin C -) 500 mg PO DAILY [facility] Last Admin: 10/02/18 10:26 Dose: 500 mg Calcium Carbonate/Cholecalciferol (Os-Mikie 500+D -) 1 tab PO DAILY [facility] Last Admin: 10/01/18 10:45 Dose: 1 tab Docusate Sodium (Colace Liquid -) 100 mg PO BID [facility] [place] Enoxaparin Sodium (Lovenox -) 40 mg SQ DAILY [facility] Last Admin: 10/02/18 10:25 Dose: 40 mg Piperacillin Sod/Tazobactam (Sod 3.375 gm/ Dextrose) 50 mls @ 100 mls/hr IVPB Q8H-IV [facility]; Protocol Last Admin: 10/02/18 10:27 Dose: 100 mls/hr Potassium Chloride 20 meq/ (Sodium Chloride) 1,010 mls @ 100 mls/hr IV ASDIR [facility] Last Admin: 10/01/18 22:26 Dose: 100 mls/hr Insulin Aspart (Novolog Vial Sliding Scale -) 1 vial SQ Q6HPO [facility]; Protocol Last Admin: 10/02/18 05:34 Dose: Not Given Levothyroxine Sodium (Synthroid -) 100 mcg PO DAILY@0700 [facility] [place] Last Admin: 10/02/18 06:10 Dose: 100 mcg Multivitamins/Minerals/Vitamin C (Tab-A-Vit -) 1 tab PO DAILY [facility] [place] Last Admin: 10/02/18 10:26 Dose: 1 tab Pantoprazole Sodium (Protonix -) 40 mg PO DAILY [facility] [place] Last Admin: 10/02/18 10:26 Dose: 40 mg Polyethylene Glycol (Miralax (For Daily Use) -) 17 gm PO BID [facility] [place] Last Admin: 10/01/18 22:16 Dose: 17 gm Senna (Senna -) 2 tab PO HS [facility] [place] Last Admin: 10/01/18 22:17 Dose: 2 tab Tamoxifen Citrate (Tamoxifen Citrate) 20 mg PO DAILY [facility] [place] Last Admin: 10/01/18 10:45 Dose: 20 mg Zinc Sulfate (Orazinc -) 220 mg PO BID [facility] [place] Last Admin: 10/02/18 10:26 Dose: 220 mg - Objective Vital Signs: Vital Signs Temperature 97.8 F 10/02/18 09:37 Pulse Rate 88 10/02/18 09:37 Respiratory Rate 20 10/02/18 09:37 Blood Pressure 104/67 10/02/18 09:37 O2 Sat by Pulse Oximetry (%) 97 10/02/18 09:00 Constitutional: Yes: Calm Eyes: Yes: Conjunctiva Clear HENT: Yes: Atraumatic Neck: Yes: Supple Cardiovascular: Yes: S1, S2 Respiratory: Yes: CTA Bilaterally Gastrointestinal: Yes: Soft Genitourinary: Yes: Other (catheter) Musculoskeletal: Yes: Muscle Weakness Edema: Yes Edema: LLE: Trace, RLE: Trace Neurological: Yes: Oriented Psychiatric: Yes: Oriented Labs: CBC, BMP 10/02/18 05:30 10/02/18 05:30 INR, PTT INR 1.17 (0.83-1.09) H 09/30/18 02:08 Problem List - Problems (1) TANISHA (acute kidney injury) Code(s): N17.9 - ACUTE KIDNEY FAILURE, UNSPECIFIED (2) Hypernatremia Code(s): E87.0 - HYPEROSMOLALITY AND HYPERNATREMIA (3) Sepsis Code(s): A41.9 - SEPSIS, UNSPECIFIED ORGANISM Qualifiers: Sepsis type: sepsis due to unspecified organism Qualified Code(s): A41.9 - Sepsis, unspecified organism (4) UTI (urinary tract infection) Code(s): N39.0 - URINARY TRACT INFECTION, SITE NOT SPECIFIED Qualifiers: Urinary tract infection type: catheter-associated UTI Indwelling urinary catheter type: cystostomy catheter Encounter type: initial encounter Qualified Code(s): T83.510A - Infection and inflammatory reaction due to cystostomy catheter, initial encounter; N39.0 - Urinary tract infection, site not specified Assessment/Plan Current Medications Generic Name Dose Route Start Last Admin Trade Name Freq PRN Reason Stop Dose Admin Ascorbic Acid 500 mg 09/30/18 10:00 10/02/18 10:26 Vitamin C - PO 500 mg DAILY [facility] Administration Calcium Carbonate/Cholecalciferol 1 tab 09/30/18 10:00 10/01/18 10:45 Os-Mikie 500+D - PO 1 tab DAILY [facility] Administration Docusate Sodium 100 mg 10/02/18 11:00 Colace Liquid - PO BID [facility] Enoxaparin Sodium 40 mg 09/30/18 10:00 10/02/18 10:25 Lovenox - SQ 40 mg DAILY [facility] Administration Piperacillin Sod/Tazobactam 50 mls @ 100 mls/hr 09/30/18 13:00 10/02/18 10:27 Sod 3.375 gm/ Dextrose IVPB 100 mls/hr Q8H-IV [facility] Administration Protocol Potassium Chloride 20 meq/ 1,010 mls @ 100 mls/hr 10/01/18 18:30 10/01/18 22: 26 Sodium Chloride IV 100 mls/hr ASDIR [facility] Administration Insulin Aspart 1 vial 09/30/18 06:00 10/02/18 05:34 Novolog Vial Sliding Scale - SQ Not Given Q6HPO [facility] Protocol Levothyroxine Sodium 100 mcg 09/30/18 07:00 10/02/18 06:10 Synthroid - PO 100 mcg DAILY@0700 [facility] Administration Multivitamins/Minerals/Vitamin C 1 tab 09/30/18 10:00 10/02/18 10:26 Tab-A-Vit - PO 1 tab DAILY [facility] Administration Pantoprazole Sodium 40 mg 09/30/18 10:00 10/02/18 10:26 Protonix - PO 40 mg DAILY [facility] Administration Polyethylene Glycol 17 gm 09/30/18 10:00 10/01/18 22:16 Miralax (For Daily Use) - PO 17 gm BID [facility] Administration Senna 2 tab 09/30/18 22:00 10/01/18 22:17 Senna - PO 2 tab HS [facility] Administration Tamoxifen Citrate 20 mg 09/30/18 10:00 10/01/18 10:45 Tamoxifen Citrate PO 20 mg DAILY [facility] Administration Zinc Sulfate 220 mg 09/30/18 10:00 10/02/18 10:26 Orazinc - PO 220 mg BID [facility] Administration Impression 1. TANISHA 2. UTI 3. sepsis 4. nephrolithiasis 5. hypothyroidism 6. multiple sclerosis 7. hypokalemia Plan - renal function continues to improve - decrease rate of fluids further - repeat labs in am - sodium is improving - monitor laureen Mcdonough
[2018-10-02] MEDS: DOCUSATE NA 100 MG/10 ML UNIT-DOSE CUPS PO SCH ×2 (17:32→22:53)
[2018-10-02] MEDS: SODIUM CHLORIDE 0.45% 1,000 ML with POTASSIUM CHLORIDE 20 MEQ IV SCH (17:34)
[2018-10-02] MEDS: POLYETHYLENE GLYCOL 3350 119 GM BTL PO SCH ×2 (17:35→22:53)
[2018-10-02] MEDS: SENNOSIDES 8.6MG TABLET (FP) PO SCH (22:48)
[2018-10-03] MEDS: INSULIN SLIDING SCALE (NOVOLOG) 1 VIAL SQ SCH ×4 (01:38→18:45)
[2018-10-03] MEDS ORDERED: PIPERACILLIN/TAZOBACTAM 3.375 GM VIAL IVPB ONE ×3 (01:41→18:38)
[2018-10-03] MEDS ORDERED: DEXTROSE 5%-WATER - 50 ML IVPB ONE ×3 (01:41→18:38)
[2018-10-03] MEDS: PIPERACILLIN/TAZOB 3.375 GM 3.375 GM in DEXTROSE 5%-WATER - 50 ML IVPB SCH ×3 (02:34→18:45)
[2018-10-03] MEDS: LEVOTHYROXINE NA 100 MCG TABLET (FP) PO SCH (06:27)
[2018-10-03 07:57] LABS: BASO % 0.7 % (0-2.0); EOS % 0.9 % (0-4.5); HEMATOCRIT 28.9 % (32.4-45.2); HEMOGLOBIN 9.3 GM/dL (10.7-15.3); LYMPH % 23.9 % (8-40); MCH 27.9 pg (25.7-33.7); MCHC 32.2 g/dl (32.0-36.0); MEAN CELL VOLUME 86.5 fl (80-96); MEAN PLT VOLUME 10.5 fl (7.5-11.1); MONO % 2.7 % (3.8-10.2); NEUT % 71.8 % (42.8-82.8); PLATELET COUNT 202 K/MM3 (134-434); RBC 3.34 M/mm3 (3.60-5.2); RDW 15.5 % (11.6-15.6); WHITE BLOOD COUNT 11.5 K/mm3 (4.0-10.0)
[2018-10-03 08:36] LABS: ANION GAP 7 MMOL/L (8-16); BLOOD UREA NITROGEN 10 mg/dL (7-18); CALCIUM 7.5 mg/dL (8.5-10.1); CHLORIDE 116 mmol/L (98-107); CO2 22 mmol/L (21-32); CREATININE 0.4 mg/dL (0.55-1.3); GLUCOSE,RANDOM 129 mg/dL (74-106); MAGNESIUM 2.2 mg/dL (1.8-2.4); PHOSPHOROUS 2.8 mg/dL (2.5-4.9); POTASSIUM 3.3 mmol/L (3.5-5.1); SODIUM 146 mmol/L (136-145)
[2018-10-03] MEDS ORDERED: POTASSIUM CHLORIDE ORAL LIQUID 20 MEQ/15 ML PO ONE (09:00)
[2018-10-03] MEDS: POTASSIUM CHLORIDE 20 MEQ in DEXTROSE 5%-WATER - 1,000 ML IVPB SCH (11:37)
[2018-10-03] MEDS: ZINC SULFATE 220 MG CAPSULE (FP) PO SCH ×2 (11:38→22:09)
[2018-10-03] MEDS: PANTOPRAZOLE 40 MG TABLET (FP) PO SCH (11:38)
[2018-10-03] MEDS: CALCIUM 500MG/VIT-D 200 UNITS COMBO TABLET (FP) PO SCH (11:38)
[2018-10-03] MEDS: MULTIVITAMINS (DAILY MVI) TABLET (FP) PO SCH (11:38)
[2018-10-03] MEDS: DOCUSATE NA 100 MG/10 ML UNIT-DOSE CUPS PO SCH ×2 (11:38→22:09)
[2018-10-03] MEDS: ASCORBIC ACID 500 MG TABLET (FP) PO SCH (11:38)
[2018-10-03] MEDS: ENOXAPARIN NA (PORCINE) 40 MG/0.4 ML DISP.SYRIN SQ SCH (11:38)
[2018-10-03] MEDS: KCL 10 MEQ IVPB 10 MEQ/100 ML INFUS.BAG IVPB SCH ×2 (11:39→15:18)
[2018-10-03] MEDS: POLYETHYLENE GLYCOL 3350 119 GM BTL PO SCH ×2 (11:39→22:09)
[2018-10-03] MEDS: TAMOXIFEN CITRATE 10 MG TABLET PO SCH (11:40)
--- NOTE | 2018-10-03 12:12 | PN ---
Physical Exam: SUBJECTIVE: Patient seen and examined at bedside. Pt is alert today and able to tell me her name. She denies having any pain or any complaints but is an unreliable historian. Had a fever of 102 overnight at approx 10PM yesterday night. OBJECTIVE: Vital Signs Temperature 99 F 10/03/18 10:00 Pulse Rate 86 10/03/18 10:00 Respiratory Rate 20 10/03/18 10:00 Blood Pressure 110/59 L 10/03/18 10:00 O2 Sat by Pulse Oximetry (%) 95 10/03/18 09:00 GENERAL: The patient is awake and oriented to self. Tracks position around room. Answers some questions. EYES: sclera anicteric, conjunctiva clear. LUNGS: Poor inspiratory effort. HEART: Regular rate and rhythm, S1, S2. ABDOMEN: Soft, nontender, normoactive bowel sounds, mild distension at suprapubic region with no tenderness to palpation. EXTREMITIES: warm, well-perfused, 1+ b/l LE pitting edema NEUROLOGICAL: Dementia PSYCH: Dementia SKIN: Warm, dry Laboratory Results - last 24 hr 10/02/18 10/02/18 10/03/18 18:14 22:52 05:35 WBC 11.5 H RBC 3.34 L Hgb 9.3 L Hct 28.9 L MCV 86.5 MCH 27.9 MCHC 32.2 RDW 15.5 Plt Count 202 MPV 10.5 Absolute Neuts (auto) 8.3 H Neutrophils % 71.8 Lymphocytes % 23.9 Monocytes % 2.7 L Eosinophils % 0.9 Basophils % 0.7 D Nucleated RBC % 0 Sodium Potassium Chloride Carbon Dioxide Anion Gap BUN Creatinine Creat Clearance w eGFR POC Glucometer 172 193 Random Glucose Calcium Phosphorus Magnesium Albumin 10/03/18 10/03/18 05:35 06:21 WBC RBC Hgb Hct MCV MCH MCHC RDW Plt Count MPV Absolute Neuts (auto) Neutrophils % Lymphocytes % Monocytes % Eosinophils % Basophils % Nucleated RBC % Sodium 146 H Potassium 3.3 L Chloride 116 H Carbon Dioxide 22 Anion Gap 7 L BUN 10 Creatinine 0.4 L Creat Clearance w eGFR 159.70 POC Glucometer 119 Random Glucose 129 H Calcium 7.5 L Phosphorus 2.8 Magnesium 2.2 Albumin 2.0 L Active Medications Generic Name Dose Route Start Last Admin Trade Name Freq PRN Reason Stop Dose Admin Ascorbic Acid 500 mg 09/30/18 10:00 10/03/18 11:38 Vitamin C - PO 500 mg DAILY [facility] Administration Calcium Carbonate/Cholecalciferol 1 tab 09/30/18 10:00 10/03/18 11:38 Os-Mikie 500+D - PO 1 tab DAILY [facility] Administration Docusate Sodium 100 mg 10/02/18 11:00 10/03/18 11:38 Colace Liquid - PO 100 mg BID [facility] Administration Enoxaparin Sodium 40 mg 09/30/18 10:00 10/03/18 11:38 Lovenox - SQ 40 mg DAILY [facility] Administration Piperacillin Sod/Tazobactam 50 mls @ 100 mls/hr 09/30/18 13:00 10/03/18 11:37 Sod 3.375 gm/ Dextrose IVPB 100 mls/hr Q8H-IV [facility] Administration Protocol Potassium Chloride 20 meq/ 1,010 mls @ 83 mls/hr 10/03/18 10:30 10/03/18 11: 37 Dextrose IVPB 83 mls/hr Q12H [facility] Administration Insulin Aspart 1 vial 09/30/18 06:00 10/03/18 06:26 Novolog Vial Sliding Scale - SQ Not Given Q6HPO [facility] Protocol Levothyroxine Sodium 100 mcg 09/30/18 07:00 10/03/18 06:27 Synthroid - PO 100 mcg DAILY@0700 [facility] Administration Multivitamins/Minerals/Vitamin C 1 tab 09/30/18 10:00 10/03/18 11:38 Tab-A-Vit - PO 1 tab DAILY [facility] Administration Pantoprazole Sodium 40 mg 09/30/18 10:00 10/03/18 11:38 Protonix - PO 40 mg DAILY [facility] Administration Polyethylene Glycol 17 gm 09/30/18 10:00 10/03/18 11:39 Miralax (For Daily Use) - PO 17 gm BID [facility] Administration Senna 2 tab 09/30/18 22:00 10/02/18 22:48 Senna - PO Not Given HS [facility] Tamoxifen Citrate 20 mg 09/30/18 10:00 10/03/18 11:40 Tamoxifen Citrate PO 20 mg DAILY [facility] Administration Zinc Sulfate 220 mg 09/30/18 10:00 10/03/18 11:38 Orazinc - PO 220 mg BID [facility] Administration ASSESSMENT/PLAN: 68 y/o F w/PMH of MS, neurogenic bladder d/o (s/p suprapubic catheter), anemia, recurrent drug resistant UTIs, dysphagia presented from [place] for tachycardia and found to be septic secondary to UTI. -Sepsis secondary to UTI -improving -f/u cultures - 2/4 organsisms identified (proteus mirabilis, morgoanella morganii), c/w zosyn -NS + 20meq KCl @ 100 ml/hr -ID on board -has nephrolithiasis which can be source of recurrent nephrolithiasis -planned for cystoscopy and change of suprapubic catheter by urology. -Constipation -senna, miralax, colace -MS -chronic -Hypothyroidism -c/w synthroid -Elevated trops -cardiology on board -DVT ppx -Lovenox 40 mg sq qd -FEN -NS +20meq KCl @ 100ml/hr -Hypokalemia - repleted. Monitor electrolytes -Dysphagia puree diet -Dispo: continue to monitor on tele. Spoke with daughter, Rossana [phone] with updates for her mother at approximately 7:40 PM Visit type - Emergency Visit Emergency Visit: Yes ED Registration Date: 09/30/18 Care time: The patient presented to the Emergency Department on the above date and was hospitalized for further evaluation of their emergent condition. - New Patient This patient is new to me today: No - Critical Care Critical Care patient: No
--- NOTE | 2018-10-03 13:09 | PN ---
Progress Note, Physician History of Present Illness: stable nno complaints - Current Medication List Current Medications: Active Medications Ascorbic Acid (Vitamin C -) 500 mg PO DAILY [facility] Last Admin: 10/03/18 11:38 Dose: 500 mg Calcium Carbonate/Cholecalciferol (Os-Mikie 500+D -) 1 tab PO DAILY [facility] Last Admin: 10/03/18 11:38 Dose: 1 tab Docusate Sodium (Colace Liquid -) 100 mg PO BID [facility] Last Admin: 10/03/18 11:38 Dose: 100 mg Enoxaparin Sodium (Lovenox -) 40 mg SQ DAILY [facility] Last Admin: 10/03/18 11:38 Dose: 40 mg Piperacillin Sod/Tazobactam (Sod 3.375 gm/ Dextrose) 50 mls @ 100 mls/hr IVPB Q8H-IV [facility]; Protocol Last Admin: 10/03/18 11:37 Dose: 100 mls/hr Potassium Chloride 20 meq/ (Dextrose) 1,010 mls @ 83 mls/hr IVPB Q12H [facility] Last Admin: 10/03/18 11:37 Dose: 83 mls/hr Insulin Aspart (Novolog Vial Sliding Scale -) 1 vial SQ Q6HPO [facility]; Protocol Last Admin: 10/03/18 06:26 Dose: Not Given Levothyroxine Sodium (Synthroid -) 100 mcg PO DAILY@0700 [facility] Last Admin: 10/03/18 06:27 Dose: 100 mcg Multivitamins/Minerals/Vitamin C (Tab-A-Vit -) 1 tab PO DAILY [facility] Last Admin: 10/03/18 11:38 Dose: 1 tab Pantoprazole Sodium (Protonix -) 40 mg PO DAILY [facility] Last Admin: 10/03/18 11:38 Dose: 40 mg Polyethylene Glycol (Miralax (For Daily Use) -) 17 gm PO BID [facility] Last Admin: 10/03/18 11:39 Dose: 17 gm Senna (Senna -) 2 tab PO HS [facility] Last Admin: 10/02/18 22:48 Dose: Not Given Tamoxifen Citrate (Tamoxifen Citrate) 20 mg PO DAILY [facility] Last Admin: 10/03/18 11:40 Dose: 20 mg Zinc Sulfate (Orazinc -) 220 mg PO BID [facility] Last Admin: 10/03/18 11:38 Dose: 220 mg - Objective Vital Signs: Vital Signs Temperature 99 F 10/03/18 10:00 Pulse Rate 86 10/03/18 10:00 Respiratory Rate 20 10/03/18 10:00 Blood Pressure 110/59 L 10/03/18 10:00 O2 Sat by Pulse Oximetry (%) 95 10/03/18 09:00 Constitutional: Yes: No Distress, Calm Cardiovascular: Yes: S1, S2 Respiratory: Yes: Regular Gastrointestinal: Yes: Other (suprapubic) Musculoskeletal: Yes: WNL Extremities: Yes: Other Neurological: Yes: Alert Labs: CBC, BMP 10/03/18 05:35 10/03/18 05:35 INR, PTT INR 1.17 (0.83-1.09) H 09/30/18 02:08 Assessment/Plan oblem List - Problems (1) Severe sepsis Code(s): A41.9 - SEPSIS, UNSPECIFIED ORGANISM; R65.20 - SEVERE SEPSIS WITHOUT SEPTIC SHOCK (2) UTI (urinary tract infection) Code(s): N39.0 - URINARY TRACT INFECTION, SITE NOT SPECIFIED Qualifiers: Urinary tract infection type: catheter-associated UTI Indwelling urinary catheter type: cystostomy catheter Encounter type: initial encounter Qualified Code(s): T83.510A - Infection and inflammatory reaction due to cystostomy catheter, initial encounter; N39.0 - Urinary tract infection, site not specified (3) Fecal impaction Code(s): K56.41 - FECAL IMPACTION (4) 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 Code(s): G35 - MULTIPLE SCLEROSIS; R53.2 - FUNCTIONAL QUADRIPLEGIA (5) Hypernatremia Code(s): E87.0 - HYPEROSMOLALITY AND HYPERNATREMIA (6) Hypothyroid Code(s): E03.9 - HYPOTHYROIDISM, UNSPECIFIED (7) Multiple sclerosis Code(s): G35 - MULTIPLE SCLEROSIS (8) Nephrolithiasis Code(s): N20.0 - CALCULUS OF KIDNEY (9) Neurogenic bladder Code(s): N31.9 - NEUROMUSCULAR DYSFUNCTION OF BLADDER, UNSPECIFIED (10) Sinus tachycardia Code(s): R00.0 - TACHYCARDIA, UNSPECIFIED (11) Thickened endometrium Code(s): R93.8 - ABNORMAL FINDINGS ON DIAGNOSTIC IMAGING OF APOORVA * DO NOT USE * (12) Elevated troponin Code(s): R74.8 - ABNORMAL LEVELS OF OTHER SERUM ENZYMES all cx reports noted plan awaiting for identification of the organisms continue abx once we have that wll change abx rest as per the team
--- NOTE | 2018-10-03 15:22 | PN ---
Progress Note, Physician History of Present Illness: Pt seen and examined at bedside. No great change from yesterday. - Current Medication List Current Medications: Active Medications Ascorbic Acid (Vitamin C -) 500 mg PO DAILY [facility] Last Admin: 10/03/18 11:38 Dose: 500 mg Calcium Carbonate/Cholecalciferol (Os-Mikie 500+D -) 1 tab PO DAILY [facility] Last Admin: 10/03/18 11:38 Dose: 1 tab Docusate Sodium (Colace Liquid -) 100 mg PO BID [facility] Last Admin: 10/03/18 11:38 Dose: 100 mg Enoxaparin Sodium (Lovenox -) 40 mg SQ DAILY [facility] Last Admin: 10/03/18 11:38 Dose: 40 mg Piperacillin Sod/Tazobactam (Sod 3.375 gm/ Dextrose) 50 mls @ 100 mls/hr IVPB Q8H-IV [facility]; Protocol Last Admin: 10/03/18 11:37 Dose: 100 mls/hr Potassium Chloride 20 meq/ (Dextrose) 1,010 mls @ 83 mls/hr IVPB Q12H [facility] Last Admin: 10/03/18 11:37 Dose: 83 mls/hr Insulin Aspart (Novolog Vial Sliding Scale -) 1 vial SQ Q6HPO [facility]; Protocol Last Admin: 10/03/18 06:26 Dose: Not Given Levothyroxine Sodium (Synthroid -) 100 mcg PO DAILY@0700 [facility] Last Admin: 10/03/18 06:27 Dose: 100 mcg Multivitamins/Minerals/Vitamin C (Tab-A-Vit -) 1 tab PO DAILY [facility] Last Admin: 10/03/18 11:38 Dose: 1 tab Pantoprazole Sodium (Protonix -) 40 mg PO DAILY [facility] Last Admin: 10/03/18 11:38 Dose: 40 mg Polyethylene Glycol (Miralax (For Daily Use) -) 17 gm PO BID [facility] Last Admin: 10/03/18 11:39 Dose: 17 gm Senna (Senna -) 2 tab PO HS [facility] Last Admin: 10/02/18 22:48 Dose: Not Given Tamoxifen Citrate (Tamoxifen Citrate) 20 mg PO DAILY [facility] Last Admin: 10/03/18 11:40 Dose: 20 mg Zinc Sulfate (Orazinc -) 220 mg PO BID [facility] Last Admin: 10/03/18 11:38 Dose: 220 mg - Objective Vital Signs: Vital Signs Temperature 98.6 F 10/03/18 14:10 Pulse Rate 92 H 10/03/18 14:10 Respiratory Rate 20 10/03/18 14:10 Blood Pressure 112/47 L 10/03/18 14:10 O2 Sat by Pulse Oximetry (%) 95 10/03/18 09:00 Constitutional: Yes: Calm Eyes: Yes: Conjunctiva Clear HENT: Yes: Atraumatic Cardiovascular: Yes: S1, S2 Respiratory: Yes: CTA Bilaterally Gastrointestinal: Yes: Normal Bowel Sounds, Soft Genitourinary: Yes: Other (catheter) Musculoskeletal: Yes: Muscle Weakness Neurological: Yes: Pre-Existing Deficit Labs: CBC, BMP 10/03/18 05:35 10/03/18 05:35 INR, PTT INR 1.17 (0.83-1.09) H 09/30/18 02:08 Problem List - Problems (1) TANISHA (acute kidney injury) Code(s): N17.9 - ACUTE KIDNEY FAILURE, UNSPECIFIED (2) Hypernatremia Code(s): E87.0 - HYPEROSMOLALITY AND HYPERNATREMIA (3) Sepsis Code(s): A41.9 - SEPSIS, UNSPECIFIED ORGANISM Qualifiers: Sepsis type: sepsis due to unspecified organism Qualified Code(s): A41.9 - Sepsis, unspecified organism (4) UTI (urinary tract infection) Code(s): N39.0 - URINARY TRACT INFECTION, SITE NOT SPECIFIED Qualifiers: Urinary tract infection type: catheter-associated UTI Indwelling urinary catheter type: cystostomy catheter Encounter type: initial encounter Qualified Code(s): T83.510A - Infection and inflammatory reaction due to cystostomy catheter, initial encounter; N39.0 - Urinary tract infection, site not specified Assessment/Plan Current Medications Generic Name Dose Route Start Last Admin Trade Name Freq PRN Reason Stop Dose Admin Ascorbic Acid 500 mg 09/30/18 10:00 10/03/18 11:38 Vitamin C - PO 500 mg DAILY [facility] Administration Calcium Carbonate/Cholecalciferol 1 tab 09/30/18 10:00 10/03/18 11:38 Os-Mikie 500+D - PO 1 tab DAILY [facility] Administration Docusate Sodium 100 mg 10/02/18 11:00 10/03/18 11:38 Colace Liquid - PO 100 mg BID [facility] Administration Enoxaparin Sodium 40 mg 09/30/18 10:00 10/03/18 11:38 Lovenox - SQ 40 mg DAILY [facility] Administration Piperacillin Sod/Tazobactam 50 mls @ 100 mls/hr 09/30/18 13:00 10/03/18 11:37 Sod 3.375 gm/ Dextrose IVPB 100 mls/hr Q8H-IV [facility] Administration Protocol Potassium Chloride 20 meq/ 1,010 mls @ 83 mls/hr 10/03/18 10:30 10/03/18 11: 37 Dextrose IVPB 83 mls/hr Q12H [facility] Administration Insulin Aspart 1 vial 09/30/18 06:00 10/03/18 15:18 Novolog Vial Sliding Scale - SQ Not Given Q6HPO [facility] Protocol Levothyroxine Sodium 100 mcg 09/30/18 07:00 10/03/18 06:27 Synthroid - PO 100 mcg DAILY@0700 [facility] Administration Multivitamins/Minerals/Vitamin C 1 tab 09/30/18 10:00 10/03/18 11:38 Tab-A-Vit - PO 1 tab DAILY [facility] Administration Pantoprazole Sodium 40 mg 09/30/18 10:00 10/03/18 11:38 Protonix - PO 40 mg DAILY [facility] Administration Polyethylene Glycol 17 gm 09/30/18 10:00 10/03/18 11:39 Miralax (For Daily Use) - PO 17 gm BID [facility] Administration Senna 2 tab 09/30/18 22:00 10/02/18 22:48 Senna - PO Not Given HS [facility] Tamoxifen Citrate 20 mg 09/30/18 10:00 10/03/18 11:40 Tamoxifen Citrate PO 20 mg DAILY [facility] Administration Zinc Sulfate 220 mg 09/30/18 10:00 10/03/18 11:38 Orazinc - PO 220 mg BID [facility] Administration Impression 1. TANISHA 2. UTI 3. sepsis 4. nephrolithiasis 5. hypothyroidism 6. multiple sclerosis 7. hypokalemia 8. hypernatremia Plan - cont to monitor renal function - sodium is higher, will adjust fluids - replace potassium - sodium is improving - monitor lymomo Mcdonough
[2018-10-03] MEDS ORDERED: PT OWN MED DRAWER 7, Y5N ONE (16:20)
--- NOTE | 2018-10-03 16:36 | PN ---
Teaching Attending Note Name of Resident: Sachin John ATTENDING PHYSICIAN STATEMENT I saw and evaluated the patient. I reviewed the resident's note and discussed the case with the resident. I agree with the resident's findings and plan as documented. SUBJECTIVE: patient says she feels fine. Daughter calling concerned about wet cough but currently is not coughing OBJECTIVE: Last Vital Signs Temp Pulse Resp BP Pulse Ox 37.0 C 92 H 20 112/47 L 95 10/03/18 14:10 10/03/18 14:10 10/03/18 14:10 10/03/18 14:10 10/03/18 09:00 Gen: nad Pulm: ctab w/o w/r/r but talks through exam CV: rrr w/o m/r/g Abd: +bs, s/nt/nd Ext: no c/c/e CBC, BMP 10/03/18 05:35 10/03/18 05:35 ASSESSMENT AND PLAN: (1) Severe sepsis Assessment/Plan: -with fever and increasing WBC -daughter notes wet cough -? aspiration -chest x-ray to evaluate -speech therapy consult Code(s): A41.9 - SEPSIS, UNSPECIFIED ORGANISM; R65.20 - SEVERE SEPSIS WITHOUT SEPTIC SHOCK (2) UTI (urinary tract infection) Assessment/Plan: -polymicrobial -ID following -continue zosyn -urology following, planning cystoscopy and suprapubic catheter change Code(s): N39.0 - URINARY TRACT INFECTION, SITE NOT SPECIFIED Qualifiers: Urinary tract infection type: catheter-associated UTI Indwelling urinary catheter type: cystostomy catheter Encounter type: initial encounter Qualified Code(s): T83.510A - Infection and inflammatory reaction due to cystostomy catheter, initial encounter; N39.0 - Urinary tract infection, site not specified (3) Fecal impaction Assessment/Plan: -continue bowel regimen -having bowel movements Code(s): K56.41 - FECAL IMPACTION (4) 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 Assessment/Plan: -chronic Code(s): G35 - MULTIPLE SCLEROSIS; R53.2 - FUNCTIONAL QUADRIPLEGIA (5) Hypernatremia Assessment/Plan: -case d/w Dr Mcdonough -fluids changed to D5W with KCl Code(s): E87.0 - HYPEROSMOLALITY AND HYPERNATREMIA (6) Hypothyroid Assessment/Plan: -continue synthroid Code(s): E03.9 - HYPOTHYROIDISM, UNSPECIFIED (7) Multiple sclerosis Assessment/Plan: -chronic Code(s): G35 - MULTIPLE SCLEROSIS (8) Nephrolithiasis Assessment/Plan: -chronic -increases risk of UTI and sepsis Code(s): N20.0 - CALCULUS OF KIDNEY (9) Neurogenic bladder Assessment/Plan: -as above Code(s): N31.9 - NEUROMUSCULAR DYSFUNCTION OF BLADDER, UNSPECIFIED (10) Sinus tachycardia Assessment/Plan: -resolved Code(s): R00.0 - TACHYCARDIA, UNSPECIFIED (11) Thickened endometrium Assessment/Plan: -chronic Code(s): R93.8 - ABNORMAL FINDINGS ON DIAGNOSTIC IMAGING OF APOORVA * DO NOT USE * (12) Elevated troponin Assessment/Plan: -appreciate cardiology assistance -stress induced Code(s): R74.8 - ABNORMAL LEVELS OF OTHER SERUM ENZYMES (13) FEN -replace potassium in fluid Problem List - Problems (1) Severe sepsis Code(s): A41.9 - SEPSIS, UNSPECIFIED ORGANISM; R65.20 - SEVERE SEPSIS WITHOUT SEPTIC SHOCK (2) UTI (urinary tract infection) Code(s): N39.0 - URINARY TRACT INFECTION, SITE NOT SPECIFIED Qualifiers: Urinary tract infection type: catheter-associated UTI Indwelling urinary catheter type: cystostomy catheter Encounter type: initial encounter Qualified Code(s): T83.510A - Infection and inflammatory reaction due to cystostomy catheter, initial encounter; N39.0 - Urinary tract infection, site not specified (3) Fecal impaction Code(s): K56.41 - FECAL IMPACTION (4) 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 Code(s): G35 - MULTIPLE SCLEROSIS; R53.2 - FUNCTIONAL QUADRIPLEGIA (5) Hypernatremia Code(s): E87.0 - HYPEROSMOLALITY AND HYPERNATREMIA (6) Hypothyroid Code(s): E03.9 - HYPOTHYROIDISM, UNSPECIFIED (7) Multiple sclerosis Code(s): G35 - MULTIPLE SCLEROSIS (8) Nephrolithiasis Code(s): N20.0 - CALCULUS OF KIDNEY (9) Neurogenic bladder Code(s): N31.9 - NEUROMUSCULAR DYSFUNCTION OF BLADDER, UNSPECIFIED (10) Sinus tachycardia Code(s): R00.0 - TACHYCARDIA, UNSPECIFIED (11) Thickened endometrium Code(s): R93.8 - ABNORMAL FINDINGS ON DIAGNOSTIC IMAGING OF APOORVA * DO NOT USE * (12) Elevated troponin Code(s): R74.8 - ABNORMAL LEVELS OF OTHER SERUM ENZYMES
[2018-10-03] MEDS: SENNOSIDES 8.6MG TABLET (FP) PO SCH (22:09)
[2018-10-04] MEDS ORDERED: DEXTROSE 5%-WATER - 50 ML IVPB ONE ×2 (02:50→09:20)
[2018-10-04] MEDS ORDERED: PIPERACILLIN/TAZOBACTAM 3.375 GM VIAL IVPB ONE ×2 (02:50→09:20)
[2018-10-04] MEDS: PIPERACILLIN/TAZOB 3.375 GM 3.375 GM in DEXTROSE 5%-WATER - 50 ML IVPB SCH ×2 (03:00→10:19)
[2018-10-04] MEDS ORDERED: PT OWN MED DRAWER 7, Y5N ONE ×2 (03:13→12:22)
[2018-10-04] MEDS: POTASSIUM CHLORIDE 20 MEQ in DEXTROSE 5%-WATER - 1,000 ML IVPB SCH ×3 (04:30→12:57)
[2018-10-04] MEDS: INSULIN SLIDING SCALE (NOVOLOG) 1 VIAL SQ SCH ×4 (06:27→18:57)
[2018-10-04] MEDS: LEVOTHYROXINE NA 100 MCG TABLET (FP) PO SCH (06:28)
[2018-10-04 06:36] LABS: BASO % 0.5 % (0-2.0); EOS % 2.3 % (0-4.5); HEMATOCRIT 27.5 % (32.4-45.2); HEMOGLOBIN 8.9 GM/dL (10.7-15.3); LYMPH % 21.8 % (8-40); MCH 27.8 pg (25.7-33.7); MCHC 32.3 g/dl (32.0-36.0); MEAN CELL VOLUME 86.3 fl (80-96); MEAN PLT VOLUME 10.7 fl (7.5-11.1); MONO % 3.9 % (3.8-10.2); NEUT % 71.5 % (42.8-82.8); PLATELET COUNT 214 K/MM3 (134-434); RBC 3.19 M/mm3 (3.60-5.2); RDW 15.5 % (11.6-15.6); WHITE BLOOD COUNT 10.3 K/mm3 (4.0-10.0)
[2018-10-04 07:10] LABS: ALBUMIN 1.9 g/dl (3.4-5.0); PHOSPHOROUS 2.7 mg/dL (2.5-4.9); POTASSIUM 3.9 mmol/L (3.5-5.1)
--- NOTE | 2018-10-04 09:15 | PN ---
Teaching Attending Note Name of Resident: Sachin John ATTENDING PHYSICIAN STATEMENT I saw and evaluated the patient. I reviewed the resident's note and discussed the case with the resident. I agree with the resident's findings and plan as documented with exceptions below. SUBJECTIVE: Patient seen and examined. Pleasant, no complaints. OBJECTIVE: Vital Signs Period Temp Pulse Resp BP Sys/Machuca Pulse Ox Last 24 Hr 97.9 F-99 F 84-96 20-20 102-116/47-66 95 Intake & Output 10/01/18 10/02/18 10/03/18 10/04/18 23:59 23:59 23:59 23:59 Intake Total 2049 2259 1800 500 Output Total 0 Balance 2049 2259 1800 500 Weight 131 lb 133 lb 12.8 oz 133 lb 9.6 oz General: sitting in bed in no acute distress Chest: decreased effort, no rales or wheezing CVS: S1s2 regular Abdomen: soft, NT, obese, no suprapubic or CVA tenderness Extremities: contracture, no edema Home Medications Medication Instructions Recorded Acetaminophen 650 mg PO Q4H PRN 03/28/16 Cholecalciferol (Vitamin D3) 1,000 unit PO DAILY 03/28/16 [Vitamin D3] Levothyroxine [Synthroid -] 100 mcg PO DAILY 03/28/16 Multivitamin [Poly-Vitamin] 1 each PO DAILY 03/28/16 Tamoxifen Citrate 20 mg PO DAILY 03/28/16 Docusate Sodium [Colace -] 100 mg PO HS 06/07/16 Lactobacillus Acidophilus [Bacid -] 1 tab PO DAILY tab 06/11/16 Ascorbic Acid [Vitamin C] 500 mg PO DAILY 06/09/17 Enoxaparin Sodium 40 mg SQ DAILY 06/09/17 Ferrous Sulfate *Liquid* [Feosol 300 mg PO DAILY 06/09/17 *Liquid*] Zinc Sulfate 220 mg PO BID 06/09/17 Calcium Carbonate/Vitamin D3 1 each PO DAILY 02/13/18 [Oyster Shell 500-Vit D3 200 Tb] Interferon Beta-1A [Avonex] 30 mcg IM WEEKLY 02/13/18 Pantoprazole Sodium 40 mg PO DAILY 02/13/18 Polyethylene Glycol 3350 [Miralax 17 gm PO BID bottle 02/20/18 119 gm Btl -] Sennosides [Senna -] 2 tab PO HS tablet 02/20/18 Fluconazole [Diflucan -] 100 mg PO DAILY 9 Days tablet 03/10/18 Active Medications Ascorbic Acid (Vitamin C -) 500 mg PO DAILY [facility] Last Admin: 10/03/18 11:38 Dose: 500 mg Calcium Carbonate/Cholecalciferol (Os-Mikie 500+D -) 1 tab PO DAILY [facility] Last Admin: 10/03/18 11:38 Dose: 1 tab Docusate Sodium (Colace Liquid -) 100 mg PO BID [facility] Last Admin: 10/03/18 22:09 Dose: Not Given Enoxaparin Sodium (Lovenox -) 40 mg SQ DAILY [facility] Last Admin: 10/03/18 11:38 Dose: 40 mg Piperacillin Sod/Tazobactam (Sod 3.375 gm/ Dextrose) 50 mls @ 100 mls/hr IVPB Q8H-IV [facility]; Protocol Last Admin: 10/04/18 03:00 Dose: 100 mls/hr Potassium Chloride 20 meq/ (Dextrose) 1,010 mls @ 83 mls/hr IVPB Q12H [facility] Last Admin: 10/04/18 04:30 Dose: 83 mls/hr Insulin Aspart (Novolog Vial Sliding Scale -) 1 vial SQ Q6HPO [facility]; Protocol Last Admin: 10/04/18 06:28 Dose: Not Given Levothyroxine Sodium (Synthroid -) 100 mcg PO DAILY@0700 [facility] Last Admin: 10/04/18 06:28 Dose: 100 mcg Multivitamins/Minerals/Vitamin C (Tab-A-Vit -) 1 tab PO DAILY [facility] Last Admin: 10/03/18 11:38 Dose: 1 tab Pantoprazole Sodium (Protonix -) 40 mg PO DAILY [facility] Last Admin: 10/03/18 11:38 Dose: 40 mg Polyethylene Glycol (Miralax (For Daily Use) -) 17 gm PO BID [facility] Last Admin: 10/03/18 22:09 Dose: Not Given Senna (Senna -) 2 tab PO HS [facility] Last Admin: 10/03/18 22:09 Dose: 2 tab Tamoxifen Citrate (Tamoxifen Citrate) 20 mg PO DAILY [facility] Last Admin: 10/03/18 11:40 Dose: 20 mg Zinc Sulfate (Orazinc -) 220 mg PO BID [facility] Last Admin: 10/03/18 22:09 Dose: 220 mg Laboratory Results - last 24 hr 09/30/18 10/03/18 10/03/18 13:28 12:09 17:50 WBC RBC Hgb Hct MCV MCH MCHC RDW Plt Count MPV Absolute Neuts (auto) Neutrophils % Lymphocytes % Monocytes % Eosinophils % Basophils % Nucleated RBC % Sodium Potassium Chloride Carbon Dioxide Anion Gap BUN Creatinine POC Glucometer 136 170 Random Glucose Calcium Phosphorus Magnesium Total Protein (PEP) 7.0 Albumin Albumin (PEP) 2.8 L Globulin 4.2 H Albumin/Globulin Ratio 0.7 Beta Globulins 0.9 JENNA M-Xander Not observed 10/03/18 10/04/18 10/04/18 22:14 05:30 05:30 WBC 10.3 H RBC 3.19 L Hgb 8.9 L Hct 27.5 L MCV 86.3 MCH 27.8 MCHC 32.3 RDW 15.5 Plt Count 214 MPV 10.7 Absolute Neuts (auto) 7.4 Neutrophils % 71.5 Lymphocytes % 21.8 Monocytes % 3.9 Eosinophils % 2.3 D Basophils % 0.5 Nucleated RBC % 0 Sodium 140 Potassium 3.9 Chloride 110 H Carbon Dioxide 21 Anion Gap 9 BUN 8 Creatinine 0.4 L POC Glucometer 177 Random Glucose 146 H Calcium 8.0 L Phosphorus 2.7 Magnesium 2.0 Total Protein (PEP) Albumin 1.9 L Albumin (PEP) Globulin Albumin/Globulin Ratio Beta Globulins JENNA M-Xander 10/04/18 06:23 WBC RBC Hgb Hct MCV MCH MCHC RDW Plt Count MPV Absolute Neuts (auto) Neutrophils % Lymphocytes % Monocytes % Eosinophils % Basophils % Nucleated RBC % Sodium Potassium Chloride Carbon Dioxide Anion Gap BUN Creatinine POC Glucometer 126 Random Glucose Calcium Phosphorus Magnesium Total Protein (PEP) Albumin Albumin (PEP) Globulin Albumin/Globulin Ratio Beta Globulins JENNA M-Xander Microbiology 09/30/18 02:29 Blood - Peripheral Venous Blood Culture - Preliminary NO GROWTH OBTAINED AFTER 96 HOURS, INCUBATION TO CONTINUE FOR 1 DAYS. 09/30/18 02:08 Blood - Peripheral Venous Blood Culture - Preliminary NO GROWTH OBTAINED AFTER 96 HOURS, INCUBATION TO CONTINUE FOR 1 DAYS. 09/30/18 02:45 Urine - Urine Suprapubic Urine Culture - Preliminary Proteus Mirabilis Morganella Morganii Group D Strep Or Entero Coccus Lactose Fermenting Neg Bacilli CT A/P results reviewed ASSESSMENT AND PLAN: 68 yof with PMHx of multiple sclerosis, Chronic right staghorn calculi, suprapubic catheter with recurrent MDR UTIs, anemia, dysphagia, muscle spasms brought in from [place] with tachycardia, found with sepsis, secondary to complicated UTI, TANISHA, hypernatremia -Complicated UTI with sepsis (polymicrobial including ESBL) -Chronic right staghorn calculi -Bladder calculi s/p Lithotripsy 2015 -h/o right PCN tube -TANISHA, suspect from hypovolumia/sepsis -Hypernatremia, suspect from hypovolumia/poor free water intake -Severe hypokalemia, resolved -Sinus tachycardia, likely from sepsis -Elevated tropn, suspect -Paraproteinemia -Multiple sclerosis -Breast Ca -Hypothyroidism -Anemia -Dysphagia -Muscle spasms Plan: ID input noted, urine cx noted, s/p 5 days of zosyn. Changed to meropenem/ augmentin. For cystoscopy/Suprapubic cath change in AM, NPO after midnight, hold AM lovenox. Nephrology input appreciated. Continue hypotonic fluids with K, monitor lytes. SPEP noted. Cardiology input noted. Outpatient follow up. Continue levothyroxine/Tamoxifen. CTA neg. Lovenox, hold as above. Dispo pending clinical improvement.
[2018-10-04 10:11] LABS: CREATININE 0.4 mg/dL (0.55-1.3)
[2018-10-04] MEDS: DOCUSATE NA 100 MG/10 ML UNIT-DOSE CUPS PO SCH ×2 (10:20→21:34)
[2018-10-04] MEDS: ENOXAPARIN NA (PORCINE) 40 MG/0.4 ML DISP.SYRIN SQ SCH (10:20)
[2018-10-04] MEDS: MULTIVITAMINS (DAILY MVI) TABLET (FP) PO SCH (10:20)
[2018-10-04] MEDS: ASCORBIC ACID 500 MG TABLET (FP) PO SCH (10:20)
[2018-10-04] MEDS: ZINC SULFATE 220 MG CAPSULE (FP) PO SCH ×2 (10:20→21:34)
[2018-10-04] MEDS: CALCIUM 500MG/VIT-D 200 UNITS COMBO TABLET (FP) PO SCH (10:20)
[2018-10-04] MEDS: PANTOPRAZOLE 40 MG TABLET (FP) PO SCH (10:20)
[2018-10-04] MEDS: TAMOXIFEN CITRATE 10 MG TABLET PO SCH (10:20)
[2018-10-04] MEDS: POLYETHYLENE GLYCOL 3350 119 GM BTL PO SCH ×3 (10:21→21:41)
--- NOTE | 2018-10-04 11:31 | CONSULT ---
Admitting History and Physical - Primary Care Physician PCP: Wei Larson - Admission History of Present Illness: 68 year old female with pmhx of multiple sclerosis, recurrent UTI, anemia and dysphagia who was sent in for tachycardia. She was found to have a UTI and found to be septic. Known to me from previous evaluations. Selected Entries 10/01/18 10/01/18 10/01/18 00:00 02:08 04:00 Breakfast Lunch Supper Temperature 99.5 F 97.5 F L 97.3 F L 10/01/18 10/01/18 10/01/18 08:00 16:00 20:00 Breakfast Lunch Supper Temperature 98.8 F 97.8 F 98.9 F 10/02/18 10/02/18 10/02/18 02:00 02:11 02:13 Breakfast Lunch Supper Temperature 97.7 F 97.7 F 97.7 F 10/02/18 10/02/18 10/02/18 06:00 09:37 12:20 Breakfast 50% Lunch Supper Temperature 97.4 F L 97.8 F 10/02/18 10/02/18 10/02/18 12:25 18:00 21:49 Breakfast Lunch 50% Supper 50% Temperature 98.8 F 102 F H 10/03/18 10/03/18 10/03/18 02:00 06:00 10:00 Breakfast Lunch Supper Temperature 98.1 F 97.6 F 99 F 10/03/18 10/03/18 10/03/18 12:02 12:38 14:10 Breakfast 25% Lunch 50% Supper Temperature 98.6 F 10/03/18 10/03/18 10/04/18 18:00 22:00 02:00 Breakfast Lunch Supper 50% Temperature 98.7 F 98.3 F 97.9 F Laboratory Tests 10/01/18 10/02/18 10/03/18 05:30 05:30 05:35 WBC 10.2 H 9.0 11.5 H 10/04/18 05:30 WBC 10.3 H History Source: Medical Record Limitations to Obtaining History: Clinical Condition, Dementia - Past Medical History 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: Yes: Dementia, Multiple Sclerosis Gastrointestinal: Yes: GERD Renal/: Yes: Neurogenic Bladder, Renal Calculi, UTI Heme/Onc: No: Anemia, B12 Deficiency, Bleeding Disorder, Cancer, Current Chemotherapy, Current Radiation Therapy, Hemochromatosis, Hypercoaguable State, Myeloproliferative Synd, Sickle Cell Disease, Sickle Cell Trait, Thrombocytopenia, Other Infectious Disease: Yes: MRSA Rheumatology: Yes: Other (multiple sclerosis) Endocrine: Yes: Hypothyroidism - Past Surgical History Past Surgical History: Yes: Mastectomy - Smoking History Smoking history: Unknown if ever smoked Have you smoked in the past 12 months: No Aproximately how many cigarettes per day: 0 - Alcohol/Substance Use Hx Alcohol Use: No History of Substance Use: reports: None - Social History ADL: Support Services History of Recent Travel: No History - Admission Reason For Visit: URINARY TRACT INFECTION/SEVERE SEPSIS - Diagnostics X-ray: Report Reviewed - General Mental Status: Awake and Alert, Able to Follow Commands, Vague Attention: Distractible, Moderate Impairment Ability to Follow Directions: Fair Head/Neck Control: Fair (extended) - Hearing Hearing: Functional Hearing: Normal Speech Evaluation - Communication Primary Language: SYRIAC Communication: Yes: Simple Responses, Dysarthria Oral Expression Ability: Yes: Moderate Impairment - Speech Production Able to Make Needs Known: Yes: Moderately Impaired Intelligibility: Yes: Mildly Impaired - Speech Characteristics Voice Loudness: Normal Voice Pitch: Yes: Normal Speech Pattern: Impaired - Language/Auditory Comprehension Follows: Yes: 1 Stage Simple Commands - Language/Verbal Expression Functional Communication Status: Yes: Moderately Impaired - Swallow Evaluation/Bedside Assessment Current Nutritional Intake: Dysphagia Pureed, [place] Textured Liquids Oral Secretions: Yes: WFL Dentition: Yes: Missing Teeth Facial Symmetry at Rest: Symmetrical Against Resistance Opening: Weak Against Resistance Closing: Weak Pucker Lips: Weak Smile: Weak Lingual Movement: Symmetric, Reduced Protrusion Lingual Movement Strgth Against Opposition: Reduced Lingual Movement Characteristics: Normal Laryngeal Elevation: Impaired Laryngeal Movement: Reduced Excursion, Labored,delay initiation, Reduced Velocity Rate of Intake: Slow/Holding Bolus Size: Small Chewing: Impaired Oral Prep Time: Increased A-P Transit: Impaired Timing of Swallow: Delayed Coughing/Throat Clear: No (with single sips of nectar via medicine cup) Change in Voice: No Recommendations - Speech Evaluation, Impression/Plan Impression: [facility] Similar speech/ swallowing performance. Cognitively impaired, distractible, with head extended, oral holding with delayed swallow onset, placing pt at risk of aspirating before swallow reflex is triggered. Suspect intermittent aspiration if fed with larger bites, too fast, head not in neutral position. - Disposition Discharge to: [facility] - Dysphagia Impressions/Plan Swallowing Skills: Impaired Dysphagia Impressions: Mild Impairment, Risk of Aspiration *Silent aspiration: cannot be R/O at bedside Dysphagia Treatment Plan: Small Bites, Chin Tuck/Down, Clear Pocket Food, Safe Rate, 1/2 tsp. at a time, Elevate HOB during feed, Other (Hong for swallow reflex before next tsp.) Recommendations: Modified Barium Swallow (Pt has not had MBS in past and this may be helpful if aspiration is suspected. However, overtly pt seems to be tolerating diet most of the time.) - Recommendations Diet Consistency: Dysphagia Pureed Medication Administration: Crushed with applesauce Liquids: [place] Thick (Single sips. No continuous drinking) Supplement: Magic Cup
--- NOTE | 2018-10-04 12:08 | PN ---
Physical Exam: SUBJECTIVE: Patient seen and examined at bedside. She says she has "no pain". She says hello when greeted and knows her name. Other history unable to be obtained. OBJECTIVE: Vital Signs Temperature 97.9 F 10/04/18 02:00 Pulse Rate 96 H 10/04/18 06:00 Respiratory Rate 20 10/04/18 06:00 Blood Pressure 115/64 10/04/18 06:00 O2 Sat by Pulse Oximetry (%) 95 10/03/18 21:00 GENERAL: The patient is awake and oriented to self. Tracks position around room. Answers some questions. EYES: sclera anicteric, conjunctiva clear. LUNGS: Poor inspiratory effort. HEART: Regular rate and rhythm, S1, S2. ABDOMEN: Soft, nontender, normoactive bowel sounds, mild distension at suprapubic region with no tenderness to palpation. EXTREMITIES: warm, well-perfused, 1+ b/l LE pitting edema NEUROLOGICAL: Dementia PSYCH: Dementia SKIN: Warm, dry Laboratory Results - last 24 hr 09/30/18 10/03/18 10/03/18 13:28 12:09 17:50 WBC RBC Hgb Hct MCV MCH MCHC RDW Plt Count MPV Absolute Neuts (auto) Neutrophils % Lymphocytes % Monocytes % Eosinophils % Basophils % Nucleated RBC % Sodium Potassium Chloride Carbon Dioxide Anion Gap BUN Creatinine Est GFR (CKD-EPI)AfAm Est GFR (CKD-EPI)NonAf POC Glucometer 136 170 Random Glucose Calcium Phosphorus Magnesium Total Protein (PEP) 7.0 Albumin Albumin (PEP) 2.8 L Globulin 4.2 H Albumin/Globulin Ratio 0.7 Beta Globulins 0.9 JENNA M-Xander Not observed 10/03/18 10/04/18 10/04/18 22:14 05:30 05:30 WBC 10.3 H RBC 3.19 L Hgb 8.9 L Hct 27.5 L MCV 86.3 MCH 27.8 MCHC 32.3 RDW 15.5 Plt Count 214 MPV 10.7 Absolute Neuts (auto) 7.4 Neutrophils % 71.5 Lymphocytes % 21.8 Monocytes % 3.9 Eosinophils % 2.3 D Basophils % 0.5 Nucleated RBC % 0 Sodium 140 Potassium 3.9 Chloride 110 H Carbon Dioxide 21 Anion Gap 9 BUN 8 Creatinine 0.4 L Est GFR (CKD-EPI)AfAm 125.79 Est GFR (CKD-EPI)NonAf 108.54 POC Glucometer 177 Random Glucose 146 H Calcium 8.0 L Phosphorus 2.7 Magnesium 2.0 Total Protein (PEP) Albumin 1.9 L Albumin (PEP) Globulin Albumin/Globulin Ratio Beta Globulins JENNA M-Xander 10/04/18 06:23 WBC RBC Hgb Hct MCV MCH MCHC RDW Plt Count MPV Absolute Neuts (auto) Neutrophils % Lymphocytes % Monocytes % Eosinophils % Basophils % Nucleated RBC % Sodium Potassium Chloride Carbon Dioxide Anion Gap BUN Creatinine Est GFR (CKD-EPI)AfAm Est GFR (CKD-EPI)NonAf POC Glucometer 126 Random Glucose Calcium Phosphorus Magnesium Total Protein (PEP) Albumin Albumin (PEP) Globulin Albumin/Globulin Ratio Beta Globulins JENNA M-Xander Active Medications Generic Name Dose Route Start Last Admin Trade Name Freq PRN Reason Stop Dose Admin Ascorbic Acid 500 mg 09/30/18 10:00 10/04/18 10:20 Vitamin C - PO 500 mg DAILY [facility] Administration Calcium Carbonate/Cholecalciferol 1 tab 09/30/18 10:00 10/04/18 10:20 Os-Mikie 500+D - PO 1 tab DAILY [facility] Administration Docusate Sodium 100 mg 10/02/18 11:00 10/04/18 10:20 Colace Liquid - PO 100 mg BID [facility] Administration Enoxaparin Sodium 40 mg 09/30/18 10:00 10/04/18 10:20 Lovenox - SQ 40 mg DAILY [facility] Administration Piperacillin Sod/Tazobactam 50 mls @ 100 mls/hr 09/30/18 13:00 10/04/18 10:19 Sod 3.375 gm/ Dextrose IVPB 100 mls/hr Q8H-IV [facility] Administration Protocol Potassium Chloride 20 meq/ 1,010 mls @ 83 mls/hr 10/03/18 10:30 10/04/18 04: 30 Dextrose IVPB 83 mls/hr Q12H [facility] Administration Insulin Aspart 1 vial 09/30/18 06:00 10/04/18 06:28 Novolog Vial Sliding Scale - SQ Not Given Q6HPO [facility] Protocol Levothyroxine Sodium 100 mcg 09/30/18 07:00 10/04/18 06:28 Synthroid - PO 100 mcg DAILY@0700 [facility] Administration Multivitamins/Minerals/Vitamin C 1 tab 09/30/18 10:00 10/04/18 10:20 Tab-A-Vit - PO 1 tab DAILY [facility] Administration Pantoprazole Sodium 40 mg 09/30/18 10:00 10/04/18 10:20 Protonix - PO 40 mg DAILY [facility] Administration Polyethylene Glycol 17 gm 09/30/18 10:00 10/04/18 10:21 Miralax (For Daily Use) - PO 17 gm BID [facility] Administration Senna 2 tab 09/30/18 22:00 10/03/18 22:09 Senna - PO 2 tab HS [facility] Administration Tamoxifen Citrate 20 mg 09/30/18 10:00 10/04/18 10:20 Tamoxifen Citrate PO 20 mg DAILY [facility] Administration Zinc Sulfate 220 mg 09/30/18 10:00 10/04/18 10:20 Orazinc - PO 220 mg BID [facility] Administration ASSESSMENT/PLAN: 68 y/o F w/PMH of MS, neurogenic bladder d/o (s/p suprapubic catheter), anemia, recurrent drug resistant UTIs, dysphagia presented from [place] for tachycardia and found to be septic secondary to UTI. -Sepsis secondary to UTI -improving -f/u cultures - Proteus, Morganella, Enterococcus avium, ESBL E. coli -meropenem and PO augmentin per ID -D5 + 20meq KCl @ 42 ml/hr -ID on board -has nephrolithiasis which can be source of recurrent nephrolithiasis -planned for cystoscopy and change of suprapubic catheter by urology tomorrow at 3 pm. -NPO after midnight -Constipation -senna, miralax, colace -MS -chronic -Hypothyroidism -c/w synthroid -DVT ppx -Lovenox 40 mg sq qd -will hold after tonight's dose for procedure tomorrow. -FEN -D5 +20meq KCl @ 42 ml/hr -Hypokalemia - repleted. Monitor electrolytes -Dysphagia puree diet -Dispo: continue to monitor on tele. Visit type - Emergency Visit Emergency Visit: Yes ED Registration Date: 09/30/18 Care time: The patient presented to the Emergency Department on the above date and was hospitalized for further evaluation of their emergent condition. - New Patient This patient is new to me today: No - Critical Care Critical Care patient: No
--- NOTE | 2018-10-04 12:29 | PN ---
Progress Note, Physician History of Present Illness: Pt seen and examined at bedside. She is awake and appears comfortable. - Current Medication List Current Medications: Active Medications Ascorbic Acid (Vitamin C -) 500 mg PO DAILY [facility] Last Admin: 10/04/18 10:20 Dose: 500 mg Calcium Carbonate/Cholecalciferol (Os-Mikie 500+D -) 1 tab PO DAILY [facility] Last Admin: 10/04/18 10:20 Dose: 1 tab Docusate Sodium (Colace Liquid -) 100 mg PO BID [facility] Last Admin: 10/04/18 10:20 Dose: 100 mg Enoxaparin Sodium (Lovenox -) 40 mg SQ DAILY [facility] Last Admin: 10/04/18 10:20 Dose: 40 mg Piperacillin Sod/Tazobactam (Sod 3.375 gm/ Dextrose) 50 mls @ 100 mls/hr IVPB Q8H-IV [facility]; Protocol Last Admin: 10/04/18 10:19 Dose: 100 mls/hr Potassium Chloride 20 meq/ (Dextrose) 1,010 mls @ 83 mls/hr IVPB Q12H [facility] Last Admin: 10/04/18 04:30 Dose: 83 mls/hr Insulin Aspart (Novolog Vial Sliding Scale -) 1 vial SQ Q6HPO [facility]; Protocol Last Admin: 10/04/18 06:28 Dose: Not Given Levothyroxine Sodium (Synthroid -) 100 mcg PO DAILY@0700 [facility] Last Admin: 10/04/18 06:28 Dose: 100 mcg Multivitamins/Minerals/Vitamin C (Tab-A-Vit -) 1 tab PO DAILY [facility] Last Admin: 10/04/18 10:20 Dose: 1 tab Pantoprazole Sodium (Protonix -) 40 mg PO DAILY [facility] Last Admin: 10/04/18 10:20 Dose: 40 mg Polyethylene Glycol (Miralax (For Daily Use) -) 17 gm PO BID [facility] Last Admin: 10/04/18 10:21 Dose: 17 gm Senna (Senna -) 2 tab PO HS [facility] Last Admin: 10/03/18 22:09 Dose: 2 tab Tamoxifen Citrate (Tamoxifen Citrate) 20 mg PO DAILY [facility] Last Admin: 10/04/18 10:20 Dose: 20 mg Zinc Sulfate (Orazinc -) 220 mg PO BID [facility] Last Admin: 10/04/18 10:20 Dose: 220 mg - Objective Vital Signs: Vital Signs Temperature 97.9 F 10/04/18 02:00 Pulse Rate 96 H 10/04/18 06:00 Respiratory Rate 20 10/04/18 06:00 Blood Pressure 115/64 10/04/18 06:00 O2 Sat by Pulse Oximetry (%) 95 10/03/18 21:00 Constitutional: Yes: Calm Eyes: Yes: Conjunctiva Clear HENT: Yes: Atraumatic Neck: Yes: Supple Cardiovascular: Yes: S1, S2 Genitourinary: Yes: Other (catheter) Musculoskeletal: Yes: Muscle Weakness Edema: Yes Edema: LLE: Trace, RLE: Trace Neurological: Yes: Pre-Existing Deficit Labs: CBC, BMP 10/04/18 05:30 10/04/18 05:30 INR, PTT INR 1.17 (0.83-1.09) H 09/30/18 02:08 Problem List - Problems (1) TANISHA (acute kidney injury) Code(s): N17.9 - ACUTE KIDNEY FAILURE, UNSPECIFIED (2) Hypernatremia Code(s): E87.0 - HYPEROSMOLALITY AND HYPERNATREMIA (3) Sepsis Code(s): A41.9 - SEPSIS, UNSPECIFIED ORGANISM Qualifiers: Sepsis type: sepsis due to unspecified organism Qualified Code(s): A41.9 - Sepsis, unspecified organism (4) UTI (urinary tract infection) Code(s): N39.0 - URINARY TRACT INFECTION, SITE NOT SPECIFIED Qualifiers: Urinary tract infection type: catheter-associated UTI Indwelling urinary catheter type: cystostomy catheter Encounter type: initial encounter Qualified Code(s): T83.510A - Infection and inflammatory reaction due to cystostomy catheter, initial encounter; N39.0 - Urinary tract infection, site not specified Assessment/Plan Current Medications Generic Name Dose Route Start Last Admin Trade Name Freq PRN Reason Stop Dose Admin Ascorbic Acid 500 mg 09/30/18 10:00 10/04/18 10:20 Vitamin C - PO 500 mg DAILY [facility]ARNA[facility] Administration Calcium Carbonate/Cholecalciferol 1 tab 09/30/18 10:00 10/04/18 10:20 Os-Mikie 500+D - PO 1 tab DAILY [facility] Administration Docusate Sodium 100 mg 10/02/18 11:00 10/04/18 10:20 Colace Liquid - PO 100 mg BID FARNAZ Administration Enoxaparin Sodium 40 mg 09/30/18 10:00 10/04/18 10:20 Lovenox - SQ 40 mg DAILY F[facility]NA[facility] Administration Piperacillin Sod/Tazobactam 50 mls @ 100 mls/hr 09/30/18 13:00 10/04/18 10:19 Sod 3.375 gm/ Dextrose IVPB 100 mls/hr Q8H-IV [facility] Administration Protocol Potassium Chloride 20 meq/ 1,010 mls @ 83 mls/hr 10/03/18 10:30 10/04/18 04: 30 Dextrose IVPB 83 mls/hr Q12H [facility] Administration Insulin Aspart 1 vial 09/30/18 06:00 10/04/18 06:28 Novolog Vial Sliding Scale - SQ Not Given Q6HPO [facility] Protocol Levothyroxine Sodium 100 mcg 09/30/18 07:00 10/04/18 06:28 Synthroid - PO 100 mcg DAILY@0700 FARNA[facility] Administration Multivitamins/Minerals/Vitamin C 1 tab 09/30/18 10:00 10/04/18 10:20 Tab-A-Vit - PO 1 tab DAILY [facility] Administration Pantoprazole Sodium 40 mg 09/30/18 10:00 10/04/18 10:20 Protonix - PO 40 mg DAILY [facility] Administration Polyethylene Glycol 17 gm 09/30/18 10:00 10/04/18 10:21 Miralax (For Daily Use) - PO 17 gm BID [facility]NA[facility] Administration Senna 2 tab 09/30/18 22:00 10/03/18 22:09 Senna - PO 2 tab HS [facility]ARNA[facility] Administration Tamoxifen Citrate 20 mg 09/30/18 10:00 10/04/18 10:20 Tamoxifen Citrate PO 20 mg DAILY [facility] Administration Zinc Sulfate 220 mg 09/30/18 10:00 10/04/18 10:20 Orazinc - PO 220 mg BID FARNAZ Administration Impression 1. TANISHA 2. UTI 3. sepsis 4. nephrolithiasis 5. hypothyroidism 6. multiple sclerosis 7. hypokalemia 8. hypernatremia Plan - decrease rate of fluids - lytes stable - renal function stable - sodium is improving - monitor lytes Dr Mcdonough
--- NOTE | 2018-10-04 12:53 | PN ---
Progress Note, Physician History of Present Illness: stable no new issues plan to change suprapubic tomorrow - Current Medication List Current Medications: Active Medications Amoxicillin/Clavulanate Potassium (Augmentin - 500mg Tablet) 1 tab PO BID@0800, 1730 [facility] Ascorbic Acid (Vitamin C -) 500 mg PO DAILY [facility] Last Admin: 10/04/18 10:20 Dose: 500 mg Calcium Carbonate/Cholecalciferol (Os-Mikie 500+D -) 1 tab PO DAILY [facility] Last Admin: 10/04/18 10:20 Dose: 1 tab Docusate Sodium (Colace Liquid -) 100 mg PO BID [facility] Last Admin: 10/04/18 10:20 Dose: 100 mg Enoxaparin Sodium (Lovenox -) 40 mg SQ DAILY [facility] Last Admin: 10/04/18 10:20 Dose: 40 mg Potassium Chloride 20 meq/ (Dextrose) 1,010 mls @ 42 mls/hr IVPB Q24H [facility] Meropenem 1 gm/ Dextrose 100 mls @ 200 mls/hr IVPB Q8H-IV [facility] Insulin Aspart (Novolog Vial Sliding Scale -) 1 vial SQ Q6HPO [facility]; Protocol Last Admin: 10/04/18 06:28 Dose: Not Given Levothyroxine Sodium (Synthroid -) 100 mcg PO DAILY@0700 [facility] Last Admin: 10/04/18 06:28 Dose: 100 mcg Multivitamins/Minerals/Vitamin C (Tab-A-Vit -) 1 tab PO DAILY [facility] Last Admin: 10/04/18 10:20 Dose: 1 tab Pantoprazole Sodium (Protonix -) 40 mg PO DAILY [facility] Last Admin: 10/04/18 10:20 Dose: 40 mg Polyethylene Glycol (Miralax (For Daily Use) -) 17 gm PO BID [facility] Last Admin: 10/04/18 10:21 Dose: 17 gm Senna (Senna -) 2 tab PO HS [facility] Last Admin: 10/03/18 22:09 Dose: 2 tab Tamoxifen Citrate (Tamoxifen Citrate) 20 mg PO DAILY [facility] Last Admin: 10/04/18 10:20 Dose: 20 mg Zinc Sulfate (Orazinc -) 220 mg PO BID [facility] Last Admin: 10/04/18 10:20 Dose: 220 mg - Objective Vital Signs: Vital Signs Temperature 97.9 F 10/04/18 02:00 Pulse Rate 96 H 10/04/18 06:00 Respiratory Rate 20 10/04/18 06:00 Blood Pressure 115/64 10/04/18 06:00 O2 Sat by Pulse Oximetry (%) 95 10/03/18 21:00 Constitutional: Yes: No Distress, Calm Cardiovascular: Yes: S1, S2 Respiratory: Yes: Regular, CTA Bilaterally Gastrointestinal: Yes: Normal Bowel Sounds, Soft Genitourinary: Yes: Chopra Present (suprapubic) Musculoskeletal: Yes: WNL Extremities: Yes: WNL Neurological: Yes: Alert, Other Psychiatric: Yes: Other Labs: CBC, BMP 10/04/18 05:30 10/04/18 05:30 INR, PTT INR 1.17 (0.83-1.09) H 09/30/18 02:08 Assessment/Plan oblem List - Problems (1) Severe sepsis Code(s): A41.9 - SEPSIS, UNSPECIFIED ORGANISM; R65.20 - SEVERE SEPSIS WITHOUT SEPTIC SHOCK (2) UTI (urinary tract infection) Code(s): N39.0 - URINARY TRACT INFECTION, SITE NOT SPECIFIED Qualifiers: Urinary tract infection type: catheter-associated UTI Indwelling urinary catheter type: cystostomy catheter Encounter type: initial encounter Qualified Code(s): T83.510A - Infection and inflammatory reaction due to cystostomy catheter, initial encounter; N39.0 - Urinary tract infection, site not specified (3) Fecal impaction Code(s): K56.41 - FECAL IMPACTION (4) 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 Code(s): G35 - MULTIPLE SCLEROSIS; R53.2 - FUNCTIONAL QUADRIPLEGIA (5) Hypernatremia Code(s): E87.0 - HYPEROSMOLALITY AND HYPERNATREMIA (6) Hypothyroid Code(s): E03.9 - HYPOTHYROIDISM, UNSPECIFIED (7) Multiple sclerosis Code(s): G35 - MULTIPLE SCLEROSIS (8) Nephrolithiasis Code(s): N20.0 - CALCULUS OF KIDNEY (9) Neurogenic bladder Code(s): N31.9 - NEUROMUSCULAR DYSFUNCTION OF BLADDER, UNSPECIFIED (10) Sinus tachycardia Code(s): R00.0 - TACHYCARDIA, UNSPECIFIED (11) Thickened endometrium Code(s): R93.8 - ABNORMAL FINDINGS ON DIAGNOSTIC IMAGING OF APOORVA * DO NOT USE * (12) Elevated troponin Code(s): R74.8 - ABNORMAL LEVELS OF OTHER SERUM ENZYMES all cx reports noted plan will change abx to meropenam and oral augmentin rest as per the team\ await for suprapubic change stable
[2018-10-04] MEDS ORDERED: MEROPENEM 1 GM VIAL (RESTRICTED TO ID) IVPB ONE ×2 (15:10→18:38)
[2018-10-04] MEDS ORDERED: DEXTROSE 5%-WATER 100 ML IVPB ONE ×2 (15:10→18:38)
[2018-10-04 15:13] LABS: TOTAL PROTEIN, URINE 561.4 mg/dL (Not Estab.)
[2018-10-04] MEDS: MEROPENEM 1 GM in DEXTROSE 5%-WATER 100 ML IVPB SCH ×2 (15:43→18:41)
[2018-10-04] MEDS: AMOX TR/POT CLAV 500MG/125MG TABLETS (FP) PO SCH (18:41)
[2018-10-04] MEDS: SENNOSIDES 8.6MG TABLET (FP) PO SCH (21:34)
[2018-10-05] MEDS ORDERED: MEROPENEM 1 GM VIAL (RESTRICTED TO ID) IVPB ONE ×3 (03:08→17:45)
[2018-10-05] MEDS ORDERED: DEXTROSE 5%-WATER 100 ML IVPB ONE ×3 (03:08→17:45)
[2018-10-05] MEDS: INSULIN SLIDING SCALE (NOVOLOG) 1 VIAL SQ SCH ×4 (03:37→18:12)
[2018-10-05] MEDS: MEROPENEM 1 GM in DEXTROSE 5%-WATER 100 ML IVPB SCH ×3 (03:38→18:07)
[2018-10-05] MEDS: LEVOTHYROXINE NA 100 MCG TABLET (FP) PO SCH (06:01)
[2018-10-05 06:59] LABS: BASO % 0.8 % (0-2.0); EOS % 2.3 % (0-4.5); HEMATOCRIT 28.8 % (32.4-45.2); HEMOGLOBIN 9.4 GM/dL (10.7-15.3); MCH 27.9 pg (25.7-33.7); MCHC 32.5 g/dl (32.0-36.0); MEAN PLT VOLUME 10.4 fl (7.5-11.1); MONO % 5.3 % (3.8-10.2); NEUT % 62.6 % (42.8-82.8); PLATELET COUNT 267 K/MM3 (134-434); RBC 3.35 M/mm3 (3.60-5.2); RDW 15.2 % (11.6-15.6); WHITE BLOOD COUNT 8.7 K/mm3 (4.0-10.0)
[2018-10-05 07:15] LABS: CALCIUM 8.8 mg/dL (8.5-10.1); CREATININE 0.5 mg/dL (0.55-1.3); MAGNESIUM 2.1 mg/dL (1.8-2.4); PHOSPHOROUS 3.5 mg/dL (2.5-4.9)
[2018-10-05] MEDS ORDERED: PT OWN MED DRAWER 7, Y5N ONE ×2 (08:33→13:30)
[2018-10-05] MEDS: POTASSIUM CHLORIDE 20 MEQ in DEXTROSE 5%-WATER - 1,000 ML IVPB SCH ×2 (08:39→13:31)
[2018-10-05] MEDS: ZINC SULFATE 220 MG CAPSULE (FP) PO SCH ×2 (09:56→22:08)
[2018-10-05] MEDS: CALCIUM 500MG/VIT-D 200 UNITS COMBO TABLET (FP) PO SCH (09:56)
[2018-10-05] MEDS: AMOX TR/POT CLAV 500MG/125MG TABLETS (FP) PO SCH ×2 (09:56→17:17)
[2018-10-05] MEDS: PANTOPRAZOLE 40 MG TABLET (FP) PO SCH (09:56)
[2018-10-05] MEDS: POLYETHYLENE GLYCOL 3350 119 GM BTL PO SCH ×2 (09:56→21:48)
[2018-10-05] MEDS: TAMOXIFEN CITRATE 10 MG TABLET PO SCH (09:57)
[2018-10-05] MEDS: MULTIVITAMINS (DAILY MVI) TABLET (FP) PO SCH (09:57)
[2018-10-05] MEDS: DOCUSATE NA 100 MG/10 ML UNIT-DOSE CUPS PO SCH ×2 (09:57→22:08)
[2018-10-05] MEDS: ASCORBIC ACID 500 MG TABLET (FP) PO SCH (09:57)
--- NOTE | 2018-10-05 10:30 | PN ---
Progress Note, Physician History of Present Illness: stable no new issues - Current Medication List Current Medications: Active Medications Amoxicillin/Clavulanate Potassium (Augmentin - 500mg Tablet) 1 tab PO BID@0800, 1730 [facility] Last Admin: 10/05/18 09:56 Dose: Not Given Ascorbic Acid (Vitamin C -) 500 mg PO DAILY [facility] Last Admin: 10/05/18 09:57 Dose: Not Given Calcium Carbonate/Cholecalciferol (Os-Mikie 500+D -) 1 tab PO DAILY [facility] Last Admin: 10/05/18 09:56 Dose: Not Given Docusate Sodium (Colace Liquid -) 100 mg PO BID [facility] Last Admin: 10/05/18 09:57 Dose: Not Given Enoxaparin Sodium (Lovenox -) 40 mg SQ DAILY [facility] Last Admin: 10/04/18 10:20 Dose: 40 mg Potassium Chloride 20 meq/ (Dextrose) 1,010 mls @ 42 mls/hr IVPB Q24H [facility] Last Admin: 10/04/18 12:57 Dose: 42 mls/hr Meropenem 1 gm/ Dextrose 100 mls @ 200 mls/hr IVPB Q8H-IV [facility] Last Admin: 10/05/18 03:38 Dose: 200 mls/hr Insulin Aspart (Novolog Vial Sliding Scale -) 1 vial SQ Q6HPO [facility]; Protocol Last Admin: 10/05/18 06:01 Dose: Not Given Levothyroxine Sodium (Synthroid -) 100 mcg PO DAILY@0700 [facility] Last Admin: 10/05/18 06:01 Dose: Not Given Multivitamins/Minerals/Vitamin C (Tab-A-Vit -) 1 tab PO DAILY [facility] Last Admin: 10/05/18 09:57 Dose: Not Given Pantoprazole Sodium (Protonix -) 40 mg PO DAILY [facility] Last Admin: 10/05/18 09:56 Dose: Not Given Polyethylene Glycol (Miralax (For Daily Use) -) 17 gm PO BID [facility] Last Admin: 10/05/18 09:56 Dose: Not Given Senna (Senna -) 2 tab PO HS [facility] Last Admin: 10/04/18 21:34 Dose: 2 tab Tamoxifen Citrate (Tamoxifen Citrate) 20 mg PO DAILY [facility] Last Admin: 10/05/18 09:57 Dose: Not Given Zinc Sulfate (Orazinc -) 220 mg PO BID [facility] Last Admin: 10/05/18 09:56 Dose: Not Given - Objective Vital Signs: Vital Signs Temperature 97.4 F L 10/05/18 06:00 Pulse Rate 82 10/05/18 09:49 Respiratory Rate 18 10/05/18 09:49 Blood Pressure 102/51 L 10/05/18 09:49 O2 Sat by Pulse Oximetry (%) 96 10/04/18 20:17 Constitutional: Yes: No Distress, Calm Cardiovascular: Yes: S1, S2 Respiratory: Yes: Regular, CTA Bilaterally Gastrointestinal: Yes: Normal Bowel Sounds, Soft Musculoskeletal: Yes: WNL Extremities: Yes: Other Neurological: Yes: Alert Psychiatric: Yes: Alert Labs: CBC, BMP 10/05/18 05:30 10/05/18 05:30 INR, PTT INR 1.17 (0.83-1.09) H 09/30/18 02:08 Assessment/Plan oblem List - Problems (1) Severe sepsis Code(s): A41.9 - SEPSIS, UNSPECIFIED ORGANISM; R65.20 - SEVERE SEPSIS WITHOUT SEPTIC SHOCK (2) UTI (urinary tract infection) Code(s): N39.0 - URINARY TRACT INFECTION, SITE NOT SPECIFIED Qualifiers: Urinary tract infection type: catheter-associated UTI Indwelling urinary catheter type: cystostomy catheter Encounter type: initial encounter Qualified Code(s): T83.510A - Infection and inflammatory reaction due to cystostomy catheter, initial encounter; N39.0 - Urinary tract infection, site not specified (3) Fecal impaction Code(s): K56.41 - FECAL IMPACTION (4) 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 Code(s): G35 - MULTIPLE SCLEROSIS; R53.2 - FUNCTIONAL QUADRIPLEGIA (5) Hypernatremia Code(s): E87.0 - HYPEROSMOLALITY AND HYPERNATREMIA (6) Hypothyroid Code(s): E03.9 - HYPOTHYROIDISM, UNSPECIFIED (7) Multiple sclerosis Code(s): G35 - MULTIPLE SCLEROSIS (8) Nephrolithiasis Code(s): N20.0 - CALCULUS OF KIDNEY (9) Neurogenic bladder Code(s): N31.9 - NEUROMUSCULAR DYSFUNCTION OF BLADDER, UNSPECIFIED (10) Sinus tachycardia Code(s): R00.0 - TACHYCARDIA, UNSPECIFIED (11) Thickened endometrium Code(s): R93.8 - ABNORMAL FINDINGS ON DIAGNOSTIC IMAGING OF APOORVA * DO NOT USE * (12) Elevated troponin Code(s): R74.8 - ABNORMAL LEVELS OF OTHER SERUM ENZYMES all cx reports noted plan abx cx reports noted suprapubic doing well rest as per the team
--- NOTE | 2018-10-05 13:59 | PN ---
Physical Exam: SUBJECTIVE: Patient seen and examined, pleasant, no pain or complaints. OBJECTIVE: Vital Signs Period Temp Pulse Resp BP Sys/Machuca Pulse Ox Last 24 Hr 97.4 F-98.2 F 72-101 18-20 96-123/51-72 96 GENERAL: awake, pleasant, no acute distress Chest: decreased effort, no rales or wheezing Abdomen:soft, NT, ND, suprapubic cath in place Extremities: contractures, no edema Home Medications Medication Instructions Recorded Acetaminophen 650 mg PO Q4H PRN 03/28/16 Cholecalciferol (Vitamin D3) 1,000 unit PO DAILY 03/28/16 [Vitamin D3] Levothyroxine [Synthroid -] 100 mcg PO DAILY 03/28/16 Multivitamin [Poly-Vitamin] 1 each PO DAILY 03/28/16 Tamoxifen Citrate 20 mg PO DAILY 03/28/16 Docusate Sodium [Colace -] 100 mg PO HS 06/07/16 Lactobacillus Acidophilus [Bacid -] 1 tab PO DAILY tab 06/11/16 Ascorbic Acid [Vitamin C] 500 mg PO DAILY 06/09/17 Enoxaparin Sodium 40 mg SQ DAILY 06/09/17 Ferrous Sulfate *Liquid* [Feosol 300 mg PO DAILY 06/09/17 *Liquid*] Zinc Sulfate 220 mg PO BID 06/09/17 Calcium Carbonate/Vitamin D3 1 each PO DAILY 02/13/18 [Oyster Shell 500-Vit D3 200 Tb] Interferon Beta-1A [Avonex] 30 mcg IM WEEKLY 02/13/18 Pantoprazole Sodium 40 mg PO DAILY 02/13/18 Polyethylene Glycol 3350 [Miralax 17 gm PO BID bottle 02/20/18 119 gm Btl -] Sennosides [Senna -] 2 tab PO HS tablet 02/20/18 Fluconazole [Diflucan -] 100 mg PO DAILY 9 Days tablet 03/10/18 Laboratory Results - last 24 hr 09/30/18 10/04/18 10/04/18 13:45 18:54 22:20 WBC RBC Hgb Hct MCV MCH MCHC RDW Plt Count MPV Absolute Neuts (auto) Neutrophils % Lymphocytes % Monocytes % Eosinophils % Basophils % Nucleated RBC % Sodium Potassium Chloride Carbon Dioxide Anion Gap BUN Creatinine Est GFR (CKD-EPI)AfAm Est GFR (CKD-EPI)NonAf POC Glucometer 130 136 Random Glucose Calcium Phosphorus Magnesium Albumin Fqorl-3-Nlecoimzi (%) 4.7 Dondj-9-Sxizqpbse (%) 10.7 Beta Globulins (%) 24.8 Gamma Globulins (%) 18.7 M-Xander % Not observed Urine Total Protein 561.4 Urine PEP Interpret 41.8 Ref Test Comments 10/05/18 10/05/18 10/05/18 05:30 05:30 05:57 WBC 8.7 RBC 3.35 L Hgb 9.4 L Hct 28.8 L MCV 86.0 MCH 27.9 MCHC 32.5 RDW 15.2 Plt Count 267 D MPV 10.4 Absolute Neuts (auto) 5.5 Neutrophils % 62.6 Lymphocytes % 29.0 D Monocytes % 5.3 Eosinophils % 2.3 Basophils % 0.8 Nucleated RBC % 0 Sodium 142 Potassium 4.0 Chloride 110 H Carbon Dioxide 25 Anion Gap 7 L BUN 6 L Creatinine 0.5 L Est GFR (CKD-EPI)AfAm 116.89 Est GFR (CKD-EPI)NonAf 100.85 POC Glucometer 152 Random Glucose 158 H Calcium 8.8 Phosphorus 3.5 Magnesium 2.1 Albumin 2.0 L Avtav-5-Ctgvszphy (%) Nrsvt-3-Hnmaykiow (%) Beta Globulins (%) Gamma Globulins (%) M-Xander % Urine Total Protein Urine PEP Interpret Ref Test Comments 10/05/18 11:41 WBC RBC Hgb Hct MCV MCH MCHC RDW Plt Count MPV Absolute Neuts (auto) Neutrophils % Lymphocytes % Monocytes % Eosinophils % Basophils % Nucleated RBC % Sodium Potassium Chloride Carbon Dioxide Anion Gap BUN Creatinine Est GFR (CKD-EPI)AfAm Est GFR (CKD-EPI)NonAf POC Glucometer 117 Random Glucose Calcium Phosphorus Magnesium Albumin Aggrb-5-Etqacosvb (%) Eqsix-7-Plbaczubn (%) Beta Globulins (%) Gamma Globulins (%) M-Xander % Urine Total Protein Urine PEP Interpret Ref Test Comments Active Medications Generic Name Dose Route Start Last Admin Trade Name Freq PRN Reason Stop Dose Admin Amoxicillin/Clavulanate Potassium 1 tab 10/04/18 17:30 10/05/18 09:56 Augmentin - 500mg Tablet PO Not Given BID@0800,1730 [facility] Ascorbic Acid 500 mg 09/30/18 10:00 10/05/18 09:57 Vitamin C - PO Not Given DAILY [facility] Calcium Carbonate/Cholecalciferol 1 tab 09/30/18 10:00 10/05/18 09:56 Os-Mikie 500+D - PO Not Given DAILY [facility] Docusate Sodium 100 mg 10/02/18 11:00 10/05/18 09:57 Colace Liquid - PO Not Given BID [facility] Enoxaparin Sodium 40 mg 09/30/18 10:00 10/04/18 10:20 Lovenox - SQ 40 mg DAILY [facility] Administration Potassium Chloride 20 meq/ 1,010 mls @ 42 mls/hr 10/04/18 12:29 10/05/18 13: 31 Dextrose IVPB 42 mls/hr Q24H [facility] Administration Meropenem 1 gm/ Dextrose 100 mls @ 200 mls/hr 10/04/18 13:15 10/05/18 11:18 IVPB 200 mls/hr Q8H-IV [facility] Administration Insulin Aspart 1 vial 09/30/18 06:00 10/05/18 11:49 Novolog Vial Sliding Scale - SQ Not Given Q6HPO [facility] Protocol Levothyroxine Sodium 100 mcg 09/30/18 07:00 10/05/18 06:01 Synthroid - PO Not Given DAILY@0700 [facility] Multivitamins/Minerals/Vitamin C 1 tab 09/30/18 10:00 10/05/18 09:57 Tab-A-Vit - PO Not Given DAILY [facility] Pantoprazole Sodium 40 mg 09/30/18 10:00 10/05/18 09:56 Protonix - PO Not Given DAILY [facility] Polyethylene Glycol 17 gm 09/30/18 10:00 10/05/18 09:56 Miralax (For Daily Use) - PO Not Given BID [facility] Senna 2 tab 09/30/18 22:00 10/04/18 21:34 Senna - PO 2 tab HS [facility] Administration Tamoxifen Citrate 20 mg 09/30/18 10:00 10/05/18 09:57 Tamoxifen Citrate PO Not Given DAILY [facility] Zinc Sulfate 220 mg 09/30/18 10:00 10/05/18 09:56 Orazinc - PO Not Given BID [facility] Microbiology 09/30/18 02:08 Blood - Peripheral Venous Blood Culture - Final NO GROWTH AFTER 5 DAYS INCUBATION 09/30/18 02:29 Blood - Peripheral Venous Blood Culture - Final NO GROWTH AFTER 5 DAYS INCUBATION 09/30/18 02:45 Urine - Urine Suprapubic Urine Culture - Final Proteus Mirabilis Morganella Morganii Enterococcus Avium Escherichia Coli Esbl Purchase Price Analyst ASSESSMENT/PLAN: 68 yof with PMHx of multiple sclerosis, Chronic right staghorn calculi, suprapubic catheter with recurrent MDR UTIs, anemia, dysphagia, muscle spasms brought in from [facility] with tachycardia, found with sepsis, secondary to complicated UTI, TANISHA, hypernatremia -Complicated UTI with sepsis (polymicrobial including ESBL) -Chronic right staghorn calculi -Bladder calculi s/p Lithotripsy 2016 -h/o right PCN tube -TANISHA, suspect from hypovolumia/sepsis -Hypernatremia, suspect from hypovolumia/poor free water intake -Severe hypokalemia, resolved -Sinus tachycardia, likely from sepsis -Elevated tropn, suspect -Paraproteinemia -Multiple sclerosis -Breast Ca -Hypothyroidism -Anemia -Dysphagia -Muscle spasms Plan: ID input noted, urine cx noted, s/p 5 days of zosyn. Changed to meropenem/ augmentin. For cystoscopy/Suprapubic cath change today. Discussed with Dr. Fuchs, plan for PICC and IV ertapenem on dc. Nephrology input appreciated. Continue hypotonic fluids with K, monitor lytes. SPEP noted. Cardiology input noted. Outpatient follow up. Continue levothyroxine/Tamoxifen. CTA neg. Lovenox, resume post op Dispo plan for d/c back to [facility] tomorrow with PICC and IV ertapenem if does well post op and no concerns. Discussed with ID and CM. Visit type - Emergency Visit Emergency Visit: Yes ED Registration Date: 09/30/18 Care time: The patient presented to the Emergency Department on the above date and was hospitalized for further evaluation of their emergent condition. - New Patient This patient is new to me today: No - Critical Care Critical Care patient: No - Discharge Referral Referred to [facility] No
--- NOTE | 2018-10-05 14:38 | PN ---
Progress Note, Physician History of Present Illness: Pt seen and examined at bedside. She appears comfortable. - Current Medication List Current Medications: Active Medications Amoxicillin/Clavulanate Potassium (Augmentin - 500mg Tablet) 1 tab PO BID@0800, 1730 [facility] Last Admin: 10/05/18 09:56 Dose: Not Given Ascorbic Acid (Vitamin C -) 500 mg PO DAILY [facility] Last Admin: 10/05/18 09:57 Dose: Not Given Calcium Carbonate/Cholecalciferol (Os-Mikie 500+D -) 1 tab PO DAILY [facility] Last Admin: 10/05/18 09:56 Dose: Not Given Docusate Sodium (Colace Liquid -) 100 mg PO BID [facility] Last Admin: 10/05/18 09:57 Dose: Not Given Enoxaparin Sodium (Lovenox -) 40 mg SQ DAILY [facility] Last Admin: 10/04/18 10:20 Dose: 40 mg Potassium Chloride 20 meq/ (Dextrose) 1,010 mls @ 42 mls/hr IVPB Q24H [facility] Last Admin: 10/05/18 13:31 Dose: 42 mls/hr Meropenem 1 gm/ Dextrose 100 mls @ 200 mls/hr IVPB Q8H-IV [facility] Last Admin: 10/05/18 11:18 Dose: 200 mls/hr Insulin Aspart (Novolog Vial Sliding Scale -) 1 vial SQ Q6HPO [facility]; Protocol Last Admin: 10/05/18 11:49 Dose: Not Given Levothyroxine Sodium (Synthroid -) 100 mcg PO DAILY@0700 [facility] Last Admin: 10/05/18 06:01 Dose: Not Given Multivitamins/Minerals/Vitamin C (Tab-A-Vit -) 1 tab PO DAILY [facility] Last Admin: 10/05/18 09:57 Dose: Not Given Pantoprazole Sodium (Protonix -) 40 mg PO DAILY [facility] Last Admin: 10/05/18 09:56 Dose: Not Given Polyethylene Glycol (Miralax (For Daily Use) -) 17 gm PO BID [facility] Last Admin: 10/05/18 09:56 Dose: Not Given Senna (Senna -) 2 tab PO HS [facility] Last Admin: 10/04/18 21:34 Dose: 2 tab Tamoxifen Citrate (Tamoxifen Citrate) 20 mg PO DAILY [facility] Last Admin: 10/05/18 09:57 Dose: Not Given Zinc Sulfate (Orazinc -) 220 mg PO BID [facility] Last Admin: 10/05/18 09:56 Dose: Not Given - Objective Vital Signs: Vital Signs Temperature 97.5 F L 10/05/18 14:00 Pulse Rate 92 H 10/05/18 14:00 Respiratory Rate 20 10/05/18 14:00 Blood Pressure 119/49 L 10/05/18 14:00 O2 Sat by Pulse Oximetry (%) 96 10/05/18 09:00 Constitutional: Yes: Calm Eyes: Yes: Conjunctiva Clear HENT: Yes: Atraumatic Cardiovascular: Yes: S1, S2 Respiratory: Yes: CTA Bilaterally Gastrointestinal: Yes: Normal Bowel Sounds, Soft Genitourinary: Yes: Other (catheter) Musculoskeletal: Yes: Muscle Weakness Neurological: Yes: Pre-Existing Deficit Labs: CBC, BMP 10/05/18 05:30 10/05/18 05:30 INR, PTT INR 1.17 (0.83-1.09) H 09/30/18 02:08 Problem List - Problems (1) TANISHA (acute kidney injury) Code(s): N17.9 - ACUTE KIDNEY FAILURE, UNSPECIFIED (2) Hypernatremia Code(s): E87.0 - HYPEROSMOLALITY AND HYPERNATREMIA (3) Sepsis Code(s): A41.9 - SEPSIS, UNSPECIFIED ORGANISM Qualifiers: Sepsis type: sepsis due to unspecified organism Qualified Code(s): A41.9 - Sepsis, unspecified organism (4) UTI (urinary tract infection) Code(s): N39.0 - URINARY TRACT INFECTION, SITE NOT SPECIFIED Qualifiers: Urinary tract infection type: catheter-associated UTI Indwelling urinary catheter type: cystostomy catheter Encounter type: initial encounter Qualified Code(s): T83.510A - Infection and inflammatory reaction due to cystostomy catheter, initial encounter; N39.0 - Urinary tract infection, site not specified Assessment/Plan Current Medications Generic Name Dose Route Start Last Admin Trade Name Freq PRN Reason Stop Dose Admin Amoxicillin/Clavulanate Potassium 1 tab 10/04/18 17:30 10/05/18 09:56 Augmentin - 500mg Tablet PO Not Given BID@0800,1730 [facility] Ascorbic Acid 500 mg 09/30/18 10:00 10/05/18 09:57 Vitamin C - PO Not Given DAILY [facility] Calcium Carbonate/Cholecalciferol 1 tab 09/30/18 10:00 10/05/18 09:56 Os-Mikie 500+D - PO Not Given DAILY [facility] Docusate Sodium 100 mg 10/02/18 11:00 10/05/18 09:57 Colace Liquid - PO Not Given BID [facility] Enoxaparin Sodium 40 mg 09/30/18 10:00 10/04/18 10:20 Lovenox - SQ 40 mg DAILY [facility] Administration Potassium Chloride 20 meq/ 1,010 mls @ 42 mls/hr 10/04/18 12:29 10/05/18 13: 31 Dextrose IVPB 42 mls/hr Q24H [facility] Administration Meropenem 1 gm/ Dextrose 100 mls @ 200 mls/hr 10/04/18 13:15 10/05/18 11:18 IVPB 200 mls/hr Q8H-IV [facility] Administration Insulin Aspart 1 vial 09/30/18 06:00 10/05/18 11:49 Novolog Vial Sliding Scale - SQ Not Given Q6HPO [facility] Protocol Levothyroxine Sodium 100 mcg 09/30/18 07:00 10/05/18 06:01 Synthroid - PO Not Given DAILY@0700 [facility] Multivitamins/Minerals/Vitamin C 1 tab 09/30/18 10:00 10/05/18 09:57 Tab-A-Vit - PO Not Given DAILY [facility] Pantoprazole Sodium 40 mg 09/30/18 10:00 10/05/18 09:56 Protonix - PO Not Given DAILY [facility] Polyethylene Glycol 17 gm 09/30/18 10:00 10/05/18 09:56 Miralax (For Daily Use) - PO Not Given BID [facility] Senna 2 tab 09/30/18 22:00 10/04/18 21:34 Senna - PO 2 tab HS [facility] Administration Tamoxifen Citrate 20 mg 09/30/18 10:00 10/05/18 09:57 Tamoxifen Citrate PO Not Given DAILY [facility] Zinc Sulfate 220 mg 09/30/18 10:00 10/05/18 09:56 Orazinc - PO Not Given BID [facility] Impression 1. TANISHA 2. UTI 3. sepsis 4. nephrolithiasis 5. hypothyroidism 6. multiple sclerosis 7. hypokalemia 8. hypernatremia Plan - can d/c fluids once she starts eating - lytes are stable - monitor sodium - monitor lytes Dr Mcdonough
[2018-10-05] MEDS ORDERED: PROPOFOL 20 ML ONE (15:24)
--- NOTE | 2018-10-05 15:45 | CONS ---
DATE OF CONSULTATION: 10/05/2018 PREOPERATIVE NOTE The patient has history of acute kidney failure, hypernatremia, urosepsis, urinary tract infections. Does have history of multiple sclerosis with subsequent neurogenic bladder and placement of a suprapubic tube 2 years earlier. The patient also has anemia and dysphagia. PHYSICAL EXAMINATION: Vital Signs: Presently her temperature is 97.5, blood pressure 119/49, pulse oximetry 96%. General: She appears to be calm. Neck: Atraumatic. Heart: Regular rhythm. Chest: Clear. DIAGNOSTIC STUDIES: Her white count is 8.7, hemoglobin 9.4, hematocrit 28.8, platelets 267. BUN 6, creatinine 0.5. Platelets are 158. The suprapubic catheter appears to be blocked and drainage appears to be blood-tinged. The patient underwent a renal ultrasound and this revealed multiple non-obstructing right renal stones. The left kidney was unable to be visualized adequately, but there was mild hydronephrosis, without any definitive stones. There was a slightly echogenic liver, suggestive of fatty infiltrate. PLAN: The plan at present is for exchange of suprapubic catheter, revision of tract, cystoscopy, possible cystolithotripsy. This was explained to the patient's family, and they agree. The patient will go to the OR this afternoon. Ozzy [id number]
--- NOTE | 2018-10-05 16:18 | OP ---
Operative Note - Note: Operative Date: 10/05/18 Pre-Operative Diagnosis: suprapubic tract disruption, bladder stones, blocked sp -dee Operation: revision of sp-tract, cystlithotripsy, and change of sp-dee 24f 60cc Findings: granulation,bleeding, necrotic suprapubic tissue and blocked sp dee, bladder stones Post-Operative Diagnosis: Same as Pre-op Surgeon: Jazz Guan Anesthesia: General Specimens Removed: necrotic sp-tract tissue, bladder stones, blocked dee tip. Estimated Blood Loss (mls): 10 Drains, Volume Out (mls): 0 Blood Volume Replaced (mls): 0 Fluid Volume Replaced (mls): 0 Operative Report Dictated: Yes
--- NOTE | 2018-10-05 16:31 | PN ---
Progress Note (short form) - Note Progress Note: post-op note- vss, spfoley-patent urine clear abd.-soft, n/t bs++. will resume all pre-op meds and orders
[2018-10-05] MEDS: SENNOSIDES 8.6MG TABLET (FP) PO SCH (22:08)
[2018-10-06] MEDS: INSULIN SLIDING SCALE (NOVOLOG) 1 VIAL SQ SCH ×3 (01:42→12:00)
[2018-10-06] MEDS ORDERED: MEROPENEM 1 GM VIAL (RESTRICTED TO ID) IVPB ONE ×2 (02:28→10:32)
[2018-10-06] MEDS ORDERED: DEXTROSE 5%-WATER 100 ML IVPB ONE ×2 (02:28→10:32)
[2018-10-06] MEDS: MEROPENEM 1 GM in DEXTROSE 5%-WATER 100 ML IVPB SCH ×2 (03:00→14:06)
[2018-10-06] MEDS: LEVOTHYROXINE NA 100 MCG TABLET (FP) PO SCH (06:47)
[2018-10-06 07:11] LABS: BASO % 1.2 % (0-2.0); EOS % 3.7 % (0-4.5); HEMATOCRIT 28.6 % (32.4-45.2); HEMOGLOBIN 9.3 GM/dL (10.7-15.3); LYMPH % 33.1 % (8-40); MCH 27.5 pg (25.7-33.7); MCHC 32.5 g/dl (32.0-36.0); MEAN CELL VOLUME 84.9 fl (80-96); MEAN PLT VOLUME 9.7 fl (7.5-11.1); MONO % 4.9 % (3.8-10.2); NEUT % 57.1 % (42.8-82.8); PLATELET COUNT 356 K/MM3 (134-434); RBC 3.36 M/mm3 (3.60-5.2); RDW 15.1 % (11.6-15.6); WHITE BLOOD COUNT 7.4 K/mm3 (4.0-10.0)
[2018-10-06 07:47] LABS: CALCIUM 8.5 mg/dL (8.5-10.1); CREATININE 0.4 mg/dL (0.55-1.3); POTASSIUM 3.8 mmol/L (3.5-5.1)
--- NOTE | 2018-10-06 11:26 | PN ---
Teaching Attending Note Name of Resident: Sachin John ATTENDING PHYSICIAN STATEMENT I saw and evaluated the patient. I reviewed the resident's note and discussed the case with the resident. I agree with the resident's findings and plan as documented with exceptions below. SUBJECTIVE: Patient seen and examined. No complaints. OBJECTIVE: Vital Signs Period Temp Pulse Resp BP Sys/Machuca Pulse Ox Last 24 Hr 97.5 F-99 F 80-102 16-20 113-143/49-78 98-100 Intake & Output 10/03/18 10/04/18 10/05/18 10/06/18 23:59 23:59 23:59 23:59 Intake Total 0447 414 0397 400 Output Total 800 500 Balance 1800 500 394 -100 Weight 133 lb 9.6 oz General: sitting in bed, pleasant, no acute distress Chest: Decreased effort, no rales or wheezing Abdomen:soft, NT, throughout, suprapubic catheter in place, no voluntary or involuntary guarding or rigidity, positive bowel sounds Extremities: contractures Home Medications Medication Instructions Recorded Acetaminophen 650 mg PO Q4H PRN 03/28/16 Cholecalciferol (Vitamin D3) 1,000 unit PO DAILY 03/28/16 [Vitamin D3] Levothyroxine [Synthroid -] 100 mcg PO DAILY 03/28/16 Multivitamin [Poly-Vitamin] 1 each PO DAILY 03/28/16 Tamoxifen Citrate 20 mg PO DAILY 03/28/16 Docusate Sodium [Colace -] 100 mg PO HS 06/07/16 Lactobacillus Acidophilus [Bacid -] 1 tab PO DAILY tab 06/11/16 Ascorbic Acid [Vitamin C] 500 mg PO DAILY 06/09/17 Enoxaparin Sodium 40 mg SQ DAILY 06/09/17 Ferrous Sulfate *Liquid* [Feosol 300 mg PO DAILY 06/09/17 *Liquid*] Zinc Sulfate 220 mg PO BID 06/09/17 Calcium Carbonate/Vitamin D3 1 each PO DAILY 02/13/18 [Oyster Shell 500-Vit D3 200 Tb] Interferon Beta-1A [Avonex] 30 mcg IM WEEKLY 02/13/18 Pantoprazole Sodium 40 mg PO DAILY 02/13/18 Polyethylene Glycol 3350 [Miralax 17 gm PO BID bottle 02/20/18 119 gm Btl -] Sennosides [Senna -] 2 tab PO HS tablet 02/20/18 Amox-Tr/K Cl [Augmentin 500-125mg 1 tab PO BID@0800,1730 13 Days #26 10/06/18 Tablet -] tablet Ertapenem Sodium - 1 Gram [Invanz 1 gm IVPB DAILY #13 bag 10/06/18 (Pre-Docked)] Insulin Sliding Scale [Novolog 1 vial SQ Q6HPO units 10/06/18 Vial Sliding Scale -] Active Medications Amoxicillin/Clavulanate Potassium (Augmentin - 500mg Tablet) 1 tab PO BID@0800, 1730 [facility] Last Admin: 10/05/18 17:17 Dose: Not Given Ascorbic Acid (Vitamin C -) 500 mg PO DAILY [facility] Last Admin: 10/05/18 09:57 Dose: Not Given Calcium Carbonate/Cholecalciferol (Os-Mikie 500+D -) 1 tab PO DAILY [facility] Last Admin: 10/05/18 09:56 Dose: Not Given Docusate Sodium (Colace Liquid -) 100 mg PO BID [facility] Last Admin: 10/05/18 22:08 Dose: Not Given Enoxaparin Sodium (Lovenox -) 40 mg SQ DAILY [facility] Last Admin: 10/04/18 10:20 Dose: 40 mg Potassium Chloride 20 meq/ (Dextrose) 1,010 mls @ 42 mls/hr IVPB Q24H [facility] Last Admin: 10/05/18 13:31 Dose: 42 mls/hr Meropenem 1 gm/ Dextrose 100 mls @ 200 mls/hr IVPB Q8H-IV [facility] Last Admin: 10/06/18 03:00 Dose: 200 mls/hr Insulin Aspart (Novolog Vial Sliding Scale -) 1 vial SQ Q6HPO [facility]; Protocol Last Admin: 10/06/18 06:46 Dose: Not Given Levothyroxine Sodium (Synthroid -) 100 mcg PO DAILY@0700 [facility] Last Admin: 10/06/18 06:47 Dose: 100 mcg Multivitamins/Minerals/Vitamin C (Tab-A-Vit -) 1 tab PO DAILY [facility] Last Admin: 10/05/18 09:57 Dose: Not Given Pantoprazole Sodium (Protonix -) 40 mg PO DAILY [facility] Last Admin: 10/05/18 09:56 Dose: Not Given Polyethylene Glycol (Miralax (For Daily Use) -) 17 gm PO BID [facility] Last Admin: 10/05/18 21:48 Dose: Not Given Senna (Senna -) 2 tab PO HS [facility] Last Admin: 10/05/18 22:08 Dose: Not Given Tamoxifen Citrate (Tamoxifen Citrate) 20 mg PO DAILY [facility] Last Admin: 10/05/18 09:57 Dose: Not Given Zinc Sulfate (Orazinc -) 220 mg PO BID [facility] Last Admin: 10/05/18 22:08 Dose: Not Given Laboratory Results - last 24 hr 10/05/18 10/05/18 10/05/18 11:41 18:09 21:01 WBC RBC Hgb Hct MCV MCH MCHC RDW Plt Count MPV Absolute Neuts (auto) Neutrophils % Lymphocytes % Monocytes % Eosinophils % Basophils % Nucleated RBC % Sodium Potassium Chloride Carbon Dioxide Anion Gap BUN Creatinine Est GFR (CKD-EPI)AfAm Est GFR (CKD-EPI)NonAf POC Glucometer 117 104 107 Random Glucose Calcium 10/06/18 10/06/18 10/06/18 05:30 05:30 06:14 WBC 7.4 RBC 3.36 L Hgb 9.3 L Hct 28.6 L MCV 84.9 MCH 27.5 MCHC 32.5 RDW 15.1 Plt Count 356 D MPV 9.7 Absolute Neuts (auto) 4.2 Neutrophils % 57.1 Lymphocytes % 33.1 Monocytes % 4.9 Eosinophils % 3.7 Basophils % 1.2 Nucleated RBC % 0 Sodium 141 Potassium 3.8 Chloride 106 Carbon Dioxide 28 Anion Gap 8 BUN 4 L Creatinine 0.4 L Est GFR (CKD-EPI)AfAm 125.79 Est GFR (CKD-EPI)NonAf 108.54 POC Glucometer 99 Random Glucose 107 H Calcium 8.5 Microbiology 09/30/18 02:08 Blood - Peripheral Venous Blood Culture - Final NO GROWTH AFTER 5 DAYS INCUBATION 09/30/18 02:29 Blood - Peripheral Venous Blood Culture - Final NO GROWTH AFTER 5 DAYS INCUBATION 09/30/18 02:45 Urine - Urine Suprapubic Urine Culture - Final Proteus Mirabilis Morganella Morganii Enterococcus Avium Escherichia Coli 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 ASSESSMENT AND PLAN: 68 yof with PMHx of multiple sclerosis, Chronic right staghorn calculi, suprapubic catheter with recurrent MDR UTIs, anemia, dysphagia, muscle spasms brought in from [facility] with tachycardia, found with sepsis, secondary to complicated UTI, TANISHA, hypernatremia -Complicated UTI with sepsis (polymicrobial including ESBL) -Chronic right staghorn calculi -Bladder calculi s/p Lithotripsy 2015 -h/o right PCN tube -TANISHA, suspect from hypovolumia/sepsis -Hypernatremia, suspect from hypovolumia/poor free water intake -Severe hypokalemia, resolved -Sinus tachycardia, likely from sepsis -Elevated tropn, suspect -Paraproteinemia -Multiple sclerosis -Breast Ca -Hypothyroidism -Anemia -Dysphagia -Muscle spasms Plan: ID input noted, urine cx noted, s/p 5 days of zosyn. Changed to meropenem/ augmentin. Discussed with Dr. Fuchs, plan for 13 more days of ertapenem/Augmentin, for pICC today. s/p revision of sp-tract, cystlithotripsy, and change of sp-dee 10/05. Nephrology input appreciated. d/c IVF, outpatient monitoring. SPEP noted. Cardiology input noted. Outpatient follow up. Continue levothyroxine/Tamoxifen. CTA neg. Elsie Dispo back to [facility] today post PICC on Ertapenem/Augmentin with outpatient urology follow up. Plan discussed with nursing, CM, ID.
--- NOTE | 2018-10-06 12:19 | PN ---
Progress Note, STATEMENT REQUEST CLERK - Note Progress Note: Selected Entries 10/05/18 10/05/18 10/05/18 02:00 06:00 14:00 Supper Temperature 98.2 F 97.4 F L 97.5 F L 10/05/18 10/05/18 10/05/18 16:14 17:15 18:30 Supper Temperature 98.0 F 98.0 F 98.0 F 10/05/18 10/05/18 10/06/18 20:27 22:00 02:00 Supper NPO Temperature 98.8 F 99 F 10/06/18 06:00 Supper Temperature 98.5 F Laboratory Tests 10/06/18 05:30 WBC 7.4 Tolerated breakfast well without reported difficulty.
--- NOTE | 2018-10-06 14:05 | PN ---
Progress Note, Physician History of Present Illness: stable no new issues - Current Medication List Current Medications: Active Medications Amoxicillin/Clavulanate Potassium (Augmentin - 500mg Tablet) 1 tab PO BID@0800, 1730 [facility] Last Admin: 10/05/18 17:17 Dose: Not Given Ascorbic Acid (Vitamin C -) 500 mg PO DAILY [facility] Last Admin: 10/05/18 09:57 Dose: Not Given Calcium Carbonate/Cholecalciferol (Os-Mikie 500+D -) 1 tab PO DAILY [facility] Last Admin: 10/05/18 09:56 Dose: Not Given Docusate Sodium (Colace Liquid -) 100 mg PO BID [facility] Last Admin: 10/05/18 22:08 Dose: Not Given Enoxaparin Sodium (Lovenox -) 40 mg SQ DAILY [facility] Last Admin: 10/04/18 10:20 Dose: 40 mg Potassium Chloride 20 meq/ (Dextrose) 1,010 mls @ 42 mls/hr IVPB Q24H [facility] Last Admin: 10/05/18 13:31 Dose: 42 mls/hr Meropenem 1 gm/ Dextrose 100 mls @ 200 mls/hr IVPB Q8H-IV [facility] Last Admin: 10/06/18 03:00 Dose: 200 mls/hr Insulin Aspart (Novolog Vial Sliding Scale -) 1 vial SQ Q6HPO [facility]; Protocol Last Admin: 10/06/18 06:46 Dose: Not Given Levothyroxine Sodium (Synthroid -) 100 mcg PO DAILY@0700 [facility] Last Admin: 10/06/18 06:47 Dose: 100 mcg Multivitamins/Minerals/Vitamin C (Tab-A-Vit -) 1 tab PO DAILY [facility] Last Admin: 10/05/18 09:57 Dose: Not Given Pantoprazole Sodium (Protonix -) 40 mg PO DAILY [facility] Last Admin: 10/05/18 09:56 Dose: Not Given Polyethylene Glycol (Miralax (For Daily Use) -) 17 gm PO BID [facility] Last Admin: 10/05/18 21:48 Dose: Not Given Senna (Senna -) 2 tab PO HS [facility] Last Admin: 10/05/18 22:08 Dose: Not Given Tamoxifen Citrate (Tamoxifen Citrate) 20 mg PO DAILY [facility] Last Admin: 10/05/18 09:57 Dose: Not Given Zinc Sulfate (Orazinc -) 220 mg PO BID [facility] Last Admin: 10/05/18 22:08 Dose: Not Given - Objective Vital Signs: Vital Signs Temperature 100.6 F H 10/06/18 10:00 Pulse Rate 99 H 10/06/18 10:00 Respiratory Rate 20 10/06/18 10:00 Blood Pressure 121/77 10/06/18 10:00 O2 Sat by Pulse Oximetry (%) 98 10/06/18 09:00 Constitutional: Yes: No Distress, Calm HENT: Yes: Atraumatic Cardiovascular: Yes: S1, S2 Respiratory: Yes: Regular, CTA Bilaterally Gastrointestinal: Yes: Normal Bowel Sounds, Soft Musculoskeletal: Yes: WNL Extremities: Yes: WNL Neurological: Yes: Alert Psychiatric: Yes: Alert Labs: CBC, BMP 10/06/18 05:30 10/06/18 05:30 INR, PTT INR 1.17 (0.83-1.09) H 09/30/18 02:08 Assessment/Plan oblem List - Problems (1) Severe sepsis Code(s): A41.9 - SEPSIS, UNSPECIFIED ORGANISM; R65.20 - SEVERE SEPSIS WITHOUT SEPTIC SHOCK (2) UTI (urinary tract infection) Code(s): N39.0 - URINARY TRACT INFECTION, SITE NOT SPECIFIED Qualifiers: Urinary tract infection type: catheter-associated UTI Indwelling urinary catheter type: cystostomy catheter Encounter type: initial encounter Qualified Code(s): T83.510A - Infection and inflammatory reaction due to cystostomy catheter, initial encounter; N39.0 - Urinary tract infection, site not specified (3) Fecal impaction Code(s): K56.41 - FECAL IMPACTION (4) 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 Code(s): G35 - MULTIPLE SCLEROSIS; R53.2 - FUNCTIONAL QUADRIPLEGIA (5) Hypernatremia Code(s): E87.0 - HYPEROSMOLALITY AND HYPERNATREMIA (6) Hypothyroid Code(s): E03.9 - HYPOTHYROIDISM, UNSPECIFIED (7) Multiple sclerosis Code(s): G35 - MULTIPLE SCLEROSIS (8) Nephrolithiasis Code(s): N20.0 - CALCULUS OF KIDNEY (9) Neurogenic bladder Code(s): N31.9 - NEUROMUSCULAR DYSFUNCTION OF BLADDER, UNSPECIFIED (10) Sinus tachycardia Code(s): R00.0 - TACHYCARDIA, UNSPECIFIED (11) Thickened endometrium Code(s): R93.8 - ABNORMAL FINDINGS ON DIAGNOSTIC IMAGING OF APOORVA * DO NOT USE * (12) Elevated troponin Code(s): R74.8 - ABNORMAL LEVELS OF OTHER SERUM ENZYMES all cx reports noted plan abx cx reports noted suprapubic doing well rest as per the team
[2018-10-06] MEDS: ENOXAPARIN NA (PORCINE) 40 MG/0.4 ML DISP.SYRIN SQ SCH (14:08)
[2018-10-06] MEDS: PANTOPRAZOLE 40 MG TABLET (FP) PO SCH (14:09)
[2018-10-06] MEDS: TAMOXIFEN CITRATE 10 MG TABLET PO SCH (14:09)
[2018-10-06] MEDS: ZINC SULFATE 220 MG CAPSULE (FP) PO SCH (14:09)
[2018-10-06] MEDS: MULTIVITAMINS (DAILY MVI) TABLET (FP) PO SCH (14:09)
[2018-10-06] MEDS: DOCUSATE NA 100 MG/10 ML UNIT-DOSE CUPS PO SCH (14:09)
[2018-10-06] MEDS: CALCIUM 500MG/VIT-D 200 UNITS COMBO TABLET (FP) PO SCH (14:09)
[2018-10-06] MEDS: POLYETHYLENE GLYCOL 3350 119 GM BTL PO SCH (14:10)
[2018-10-06] MEDS: AMOX TR/POT CLAV 500MG/125MG TABLETS (FP) PO SCH (14:10)
[2018-10-06] MEDS: POTASSIUM CHLORIDE 20 MEQ in DEXTROSE 5%-WATER - 1,000 ML IVPB SCH (14:10)
[2018-10-06] MEDS: ASCORBIC ACID 500 MG TABLET (FP) PO SCH (14:10)
[2018-10-06 14:53] VITALS: BP 120/77; PULSE 80; TEMP 99.8
--- NOTE | 2018-10-06 15:29 | PN ---
Progress Note, Physician History of Present Illness: Pt seen and examined at bedside. SHe is tolerating diet. - Current Medication List Current Medications: Active Medications Amoxicillin/Clavulanate Potassium (Augmentin - 500mg Tablet) 1 tab PO BID@0800, 1730 [facility] Last Admin: 10/06/18 14:10 Dose: 1 tab Ascorbic Acid (Vitamin C -) 500 mg PO DAILY [facility] Last Admin: 10/06/18 14:10 Dose: 500 mg Calcium Carbonate/Cholecalciferol (Os-Mikie 500+D -) 1 tab PO DAILY [facility] Last Admin: 10/06/18 14:09 Dose: 1 tab Docusate Sodium (Colace Liquid -) 100 mg PO BID [facility] Last Admin: 10/06/18 14:09 Dose: 100 mg Enoxaparin Sodium (Lovenox -) 40 mg SQ DAILY [facility] Last Admin: 10/06/18 14:08 Dose: 40 mg Potassium Chloride 20 meq/ (Dextrose) 1,010 mls @ 42 mls/hr IVPB Q24H [facility] Last Admin: 10/06/18 14:10 Dose: 42 mls/hr Meropenem 1 gm/ Dextrose 100 mls @ 200 mls/hr IVPB Q8H-IV [facility] Last Admin: 10/06/18 14:06 Dose: 200 mls/hr Insulin Aspart (Novolog Vial Sliding Scale -) 1 vial SQ Q6HPO [facility]; Protocol Last Admin: 10/06/18 06:46 Dose: Not Given Levothyroxine Sodium (Synthroid -) 100 mcg PO DAILY@0700 [facility] Last Admin: 10/06/18 06:47 Dose: 100 mcg Multivitamins/Minerals/Vitamin C (Tab-A-Vit -) 1 tab PO DAILY [facility] Last Admin: 10/06/18 14:09 Dose: 1 tab Pantoprazole Sodium (Protonix -) 40 mg PO DAILY [facility] Last Admin: 10/06/18 14:09 Dose: 40 mg Polyethylene Glycol (Miralax (For Daily Use) -) 17 gm PO BID [facility] Last Admin: 10/06/18 14:10 Dose: 17 gm Senna (Senna -) 2 tab PO HS [facility] Last Admin: 10/05/18 22:08 Dose: Not Given Tamoxifen Citrate (Tamoxifen Citrate) 20 mg PO DAILY [facility] Last Admin: 10/06/18 14:09 Dose: 20 mg Zinc Sulfate (Orazinc -) 220 mg PO BID [facility] Last Admin: 10/06/18 14:09 Dose: 220 mg - Objective Vital Signs: Vital Signs Temperature 99.8 F H 10/06/18 14:00 Pulse Rate 80 10/06/18 14:00 Respiratory Rate 20 10/06/18 14:00 Blood Pressure 120/77 10/06/18 14:00 O2 Sat by Pulse Oximetry (%) 98 10/06/18 09:00 Constitutional: Yes: Calm, Poor Hygeine HENT: Yes: Atraumatic Cardiovascular: Yes: S1, S2 Respiratory: Yes: CTA Bilaterally Genitourinary: Yes: Other (catheter) Musculoskeletal: Yes: Muscle Weakness Edema: Yes Edema: LLE: Trace, RLE: Trace Neurological: Yes: Pre-Existing Deficit Labs: CBC, BMP 10/06/18 05:30 10/06/18 05:30 INR, PTT INR 1.17 (0.83-1.09) H 09/30/18 02:08 Problem List - Problems (1) TANISHA (acute kidney injury) Code(s): N17.9 - ACUTE KIDNEY FAILURE, UNSPECIFIED (2) Hypernatremia Code(s): E87.0 - HYPEROSMOLALITY AND HYPERNATREMIA (3) Sepsis Code(s): A41.9 - SEPSIS, UNSPECIFIED ORGANISM Qualifiers: Sepsis type: sepsis due to unspecified organism Qualified Code(s): A41.9 - Sepsis, unspecified organism (4) UTI (urinary tract infection) Code(s): N39.0 - URINARY TRACT INFECTION, SITE NOT SPECIFIED Qualifiers: Urinary tract infection type: catheter-associated UTI Indwelling urinary catheter type: cystostomy catheter Encounter type: initial encounter Qualified Code(s): T83.510A - Infection and inflammatory reaction due to cystostomy catheter, initial encounter; N39.0 - Urinary tract infection, site not specified Assessment/Plan Current Medications Generic Name Dose Route Start Last Admin Trade Name Freq PRN Reason Stop Dose Admin Amoxicillin/Clavulanate Potassium 1 tab 10/04/18 17:30 10/06/18 14:10 Augmentin - 500mg Tablet PO 1 tab BID@0800,1730 [facility] Administration Ascorbic Acid 500 mg 09/30/18 10:00 10/06/18 14:10 Vitamin C - PO 500 mg DAILY [facility] Administration Calcium Carbonate/Cholecalciferol 1 tab 09/30/18 10:00 10/06/18 14:09 Os-Mikie 500+D - PO 1 tab DAILY [facility] Administration Docusate Sodium 100 mg 10/02/18 11:00 10/06/18 14:09 Colace Liquid - PO 100 mg BID [facility] Administration Enoxaparin Sodium 40 mg 09/30/18 10:00 10/06/18 14:08 Lovenox - SQ 40 mg DAILY [facility] Administration Potassium Chloride 20 meq/ 1,010 mls @ 42 mls/hr 10/04/18 12:29 10/06/18 14: 10 Dextrose IVPB 42 mls/hr Q24H [facility] Administration Meropenem 1 gm/ Dextrose 100 mls @ 200 mls/hr 10/04/18 13:15 10/06/18 14:06 IVPB 200 mls/hr Q8H-IV [facility] Administration Insulin Aspart 1 vial 09/30/18 06:00 10/06/18 06:46 Novolog Vial Sliding Scale - SQ Not Given Q6HPO [facility] Protocol Levothyroxine Sodium 100 mcg 09/30/18 07:00 10/06/18 06:47 Synthroid - PO 100 mcg DAILY@0700 [facility] Administration Multivitamins/Minerals/Vitamin C 1 tab 09/30/18 10:00 10/06/18 14:09 Tab-A-Vit - PO 1 tab DAILY [facility] Administration Pantoprazole Sodium 40 mg 09/30/18 10:00 10/06/18 14:09 Protonix - PO 40 mg DAILY [facility] Administration Polyethylene Glycol 17 gm 09/30/18 10:00 10/06/18 14:10 Miralax (For Daily Use) - PO 17 gm BID [facility] Administration Senna 2 tab 09/30/18 22:00 10/05/18 22:08 Senna - PO Not Given HS [facility] Tamoxifen Citrate 20 mg 09/30/18 10:00 10/06/18 14:09 Tamoxifen Citrate PO 20 mg DAILY [facility] Administration Zinc Sulfate 220 mg 09/30/18 10:00 10/06/18 14:09 Orazinc - PO 220 mg BID [facility] Administration Impression 1. TANISHA 2. UTI 3. sepsis 4. nephrolithiasis 5. hypothyroidism 6. multiple sclerosis 7. hypokalemia 8. hypernatremia Plan - pt tolerating diet - will d/c fluids - monitor lytes - will follow PRN Dr Mcdonough
--- NOTE | 2018-10-06 18:24 | DS ---
Physical Exam: SUBJECTIVE: Patient seen and examined at bedside. Says "hello" when greeted and says "no pain" when asked if any pain. OBJECTIVE: Vital Signs Period Temp Pulse Resp BP Sys/Machuca Pulse Ox Last 24 Hr 98.0 F-100.6 F 80-102 18-20 113-133/56-78 98-98 PHYSICAL EXAM GENERAL: The patient is awake and oriented to self. Tracks position around room. Answers some questions. EYES: sclera anicteric, conjunctiva clear. LUNGS: Poor inspiratory effort. HEART: Regular rate and rhythm, S1, S2. ABDOMEN: Soft, nontender, normoactive bowel sounds, mild distension at suprapubic region with no tenderness to palpation. EXTREMITIES: warm, well-perfused, 1+ b/l LE pitting edema NEUROLOGICAL: Dementia PSYCH: Dementia SKIN: Warm, dry LABS Laboratory Results - last 24 hr 10/05/18 10/06/18 10/06/18 21:01 05:30 05:30 WBC 7.4 RBC 3.36 L Hgb 9.3 L Hct 28.6 L MCV 84.9 MCH 27.5 MCHC 32.5 RDW 15.1 Plt Count 356 D MPV 9.7 Absolute Neuts (auto) 4.2 Neutrophils % 57.1 Lymphocytes % 33.1 Monocytes % 4.9 Eosinophils % 3.7 Basophils % 1.2 Nucleated RBC % 0 Sodium 141 Potassium 3.8 Chloride 106 Carbon Dioxide 28 Anion Gap 8 BUN 4 L Creatinine 0.4 L Est GFR (CKD-EPI)AfAm 125.79 Est GFR (CKD-EPI)NonAf 108.54 POC Glucometer 107 Random Glucose 107 H Calcium 8.5 Ur Random Creatinine 10/06/18 10/06/18 06:14 15:00 WBC RBC Hgb Hct MCV MCH MCHC RDW Plt Count MPV Absolute Neuts (auto) Neutrophils % Lymphocytes % Monocytes % Eosinophils % Basophils % Nucleated RBC % Sodium Potassium Chloride Carbon Dioxide Anion Gap BUN Creatinine Est GFR (CKD-EPI)AfAm Est GFR (CKD-EPI)NonAf POC Glucometer 99 Random Glucose Calcium Ur Random Creatinine 21.0 L HOSPITAL COURSE: Date of Admission:09/30/18 Date of Discharge: 10/06/18 68 y/o F w/PMH of MS, neurogenic bladder d/o (s/p suprapubic catheter), anemia, recurrent drug resistant UTIs, dysphagia [place] for tachycardia and found to be septic secondary to UTI. She initially presented with fever of 102.9 and tachycardic to 172 and was admitted for sepsis and was found to have a UTI with multiple organisms with non-functioning suprapubic catheter. Urine culture grew proteus mirabilis, morganella morganii, enterococcus avium, ESBL E. Coli and blood culture was negative. Pt was treated initially with zosyn and then switched to augmentin PO and meropenem after C&S were back. She also presented with TANISHA which improved with fluids and abx treatment. She also had her suprapubic catheter changed by urology during her admission. She continued to improved through admission. Before discharge back to [facility] a PICC line was placed and pt is to continue with ertapenem for 13 additional days and augmentin for 13 additional days. Minutes to complete discharge: 40 Discharge Summary Reason For Visit: URINARY TRACT INFECTION/SEVERE SEPSIS Current Active Problems TANISHA (acute kidney injury) (Acute) Elevated troponin (Acute) Hypernatremia (Acute) Sepsis (Acute) Systemic inflammatory response syndrome (SIRS) (Acute) UTI (urinary tract infection) (Acute) Condition: Stable - Instructions Diet, Activity, Other Instructions: You were diagnosed with a urinary tract infection and your suprapubic catheter was not draining urine. You were treated with antibiotics for your infection and [facility] A PICC line has been inserted to be used temporarily for your antibiotics requiring IV access. You will continue to take ertapenem and augmentin for 13 additional days. You will also need to make sure you are drinking plenty of fluids so that you do not become dehydrated. Your suprapubic catheter was changed by urology and is now currently draining urine. MEDICATIONS -Ertapenem antibiotics for an additional 13 days via the PICC line. -Augmentin for 13 days. -Resume your medications that you were taking before coming to the hospital. ( Avonex and tamoxifen to be continued as prior per your outpatient doctors) INSTRUCTIONS: Dysphagia puree diet with nectar thick liquids Aspiration precautions Routine PICC line care. FOLLOW UP: Weekly labs including CBC, BMP, LFTs while on antibiotics With PCP In [address] Guan in 1-2 weeks With System Support Administrator Dr. Samarneh in 3-4 weeks or as needed -come back to the hospital if you develop fevers, chills, change in mental status, worsening of your current symptoms or condition. Referrals: Yessica Fuchs MD [Staff Physician] - Kamran Cardenas MD [Primary Care Provider] - Jazz Guan MD [Staff Physician] - 1 Week Disposition: LONGTERM FACILITY - Home Medications Comprehensive Discharge Medication List: Ambulatory Orders Acetaminophen 650 mg PO Q4H PRN 03/28/16 Cholecalciferol (Vitamin D3) [Vitamin D3] 1,000 unit PO DAILY 03/28/16 Levothyroxine [Synthroid -] 100 mcg PO DAILY 03/28/16 Multivitamin [Poly-Vitamin] 1 each PO DAILY 03/28/16 Tamoxifen Citrate 20 mg PO DAILY 03/28/16 Docusate Sodium [Colace -] 100 mg PO HS 06/07/16 Lactobacillus Acidophilus [Bacid -] 1 tab PO DAILY tab 06/11/16 Ascorbic Acid [Vitamin C] 500 mg PO DAILY 06/09/17 Enoxaparin Sodium 40 mg SQ DAILY 06/09/17 Ferrous Sulfate *Liquid* [Feosol *Liquid*] 300 mg PO DAILY 06/09/17 Zinc Sulfate 220 mg PO BID 06/09/17 Calcium Carbonate/Vitamin D3 [Oyster Shell 500-Vit D3 200 Tb] 1 each PO DAILY Interferon Beta-1A [Avonex] 30 mcg IM WEEKLY 02/13/18 Pantoprazole Sodium 40 mg PO DAILY 02/13/18 Polyethylene Glycol 3350 [Miralax 119 gm Btl -] 17 gm PO BID bottle 02/20/18 Sennosides [Senna -] 2 tab PO HS tablet 02/20/18 Amox-Tr/K Cl [Augmentin 500-125mg Tablet -] 1 tab PO BID@0800,1730 13 Days #26 tablet 10/06/18 Amoxicillin/Potassium Clav [Augmentin 500-125 Tablet] 1 each PO BID #26 tablet 10/06/18 Ertapenem Sodium - 1 Gram [Invanz (Pre-Docked)] 1 gm IVPB DAILY #13 bag Insulin Sliding Scale [Novolog Vial Sliding Scale -] 1 vial SQ Q6HPO units 03/17 This patient is new to me today: No Emergency Visit: Yes ED Registration Date: 09/30/18 Care time: The patient presented to the Emergency Department on the above date and was hospitalized for further evaluation of their emergent condition. Critical Care patient: No - Discharge Referral [facility] No
--- NOTE | 2018-10-10 13:08 | PATH ---
Surgical Pathology Report Patient Name: LISANDRA HOWELL [facility]. Rec. #: [id number] /Age/Gender: 1950 (Age: 68) / F Account: [id number] Location: 4 W TELEMETRY U Taken: 10/05/2018 Received: 10/06/2018 Reported: 10/09/2018 Physicians: Ozzy Stock MD Specimen(s) Received A: BLADDER CALCULI B: JAQUEZ TIP C: SUPRAPUBIC TRACT Clinical History Urinary tract infection, severe sepsis Final Diagnosis A. BLADDER STONES, CYSTOLITHOTRIPSY: BLADDER CALCULI. MACROSCOPIC DIAGNOSIS. B. JAQUEZ CATH, REMOVAL: CONSISTENT WITH PORTION OF CATHETER (TIP). MACROSCOPIC DIAGNOSIS. C. SUPRAPUBIC TRACT, EXCISION: SQUAMOUS MUCOSA AND FIBROADIPOSE TISSUE WITH SEVERE ACUTE AND CHRONIC INFLAMMATION, ULCERATION, GRANULATION TISSUE, EDEMA, HEMORRHAGE AND REACTIVE CHANGES. Electronically Signed Lisandra Daly M.D. Gross Description A. Received fresh labeled "bladder stones" are yellow granular material measuring 1 x 1 x 0.3 cm in aggregate. The specimen is sent for chemical analysis. B. Received fresh labeled "jaquez tip" is a yellow portion of (Jaquez) catheter tip measuring 7 x 1 cm. No soft tissue identified, gross examination only. C. Received in formalin labeled "suprapubic tract" are 2 irregular white-muro fragments of soft tissue measuring 1 x 0.7 x 0.5 and 0.7 x 0.5 x 0.2 cm. The specimen is entirely submitted in one cassette. MLSZ/10/06/2018 [email or web address]/10/06/2018
[2018-10-11 16:14] LABS: WEIGHT 64.4 mg (.)
--- NOTE | 2018-10-25 16:29 | OP ---
DATE OF OPERATION: 10/05/2018 PREOPERATIVE DIAGNOSES: Suprapubic tract disruption. Bladder stones. Blocked suprapubic catheter. OPERATIVE PROCEDURE: Revision of suprapubic tract, cystolithotripsy, and change of suprapubic Chopra catheter to a 24-Argentine, 60-mL catheter. ANESTHESIA: General. DESCRIPTION OF PROCEDURE: Under above-stated anesthesia, patient was prepped and draped in the usual sterile manner. She was placed in the supine position. Inspection of the suprapubic tract area revealed a large amount of granulation tissue and bleeding, necrotic tissue. Therefore, an elliptical incision was made encompassing the suprapubic tract so that this was approximately 6 cm in width and 4 cm in length. The entire track was taken down to the dome of the bladder using sharp dissection. The rectus fascia was also debrided and the dome of the bladder was excised within the suprapubic tract. Inspection of the bladder revealed several stones in the bladder. Due to the size of the stones, laser lithotripsy was performed and the stones were lased into multiple, small fragments. Using biopsy forceps, multiple fragments of stone were removed. A 24-Argentine Chopra was then placed into the dome of the bladder. The bladder was closed with two layers; the first layer 3-0 Vicryl suture ligatures, the second layer with 2-0 chromic suture ligatures. A last stitch in a pursestring fashion was used to anchor the catheter to the dome of the bladder. The wound was irrigated with antibiotic solution. The fascia was closed with 2-0 Vicryl suture ligatures. The subcutaneous was closed with 3-0 Vicryl suture ligatures. The skin was closed with adelaida. The suprapubic tube was attached to a drainage bag. The patient tolerated the procedure well. She returned to the recovery room in good condition. Ozzy [id number]
== END 2018-10-06 18:27 | DRG 445 ==
LOC: JER 02:02 → JERBED 04:27 → J4W 16:00
PROVIDERS: ADMIT Internal Medicine; ATTEND Hospitalist
PROC: 0T2BX0Z Change Drainage Device in Bladder, External Approach (ICD-10-PCS; 2018-10-05)
PROC: 0TCB0ZZ Extirpation of Matter from Bladder, Open Approach (ICD-10-PCS; principal; 2018-10-05 15:00)
PROC: 02HV33Z Insertion of Infusion Device into Superior Vena Cava, Percutaneous Approach (ICD-10-PCS; 2018-10-06)
PROC: B518ZZA Fluoroscopy of Superior Vena Cava, Guidance (ICD-10-PCS; 2018-10-06)
PROC: B548ZZA Ultrasonography of Superior Vena Cava, Guidance (ICD-10-PCS; 2018-10-06)
DX: T83.510A Infection and inflammatory reaction due to cystostomy catheter, initial encounter (principal); A41.9 Sepsis, unspecified organism; R65.20 Severe sepsis without septic shock; N17.9 Acute kidney failure, unspecified; E87.4 Mixed disorder of acid-base balance; R53.2 Functional quadriplegia; E87.0 Hyperosmolality and hypernatremia; N31.8 Other neuromuscular dysfunction of bladder; G35 Multiple sclerosis; D89.2 Hypergammaglobulinemia, unspecified; R13.10 Dysphagia, unspecified; E11.65 Type 2 diabetes mellitus with hyperglycemia; F03.90 Unspecified dementia, unspecified severity, without behavioral disturbance, psychotic disturbance, mood disturbance, and anxiety; N39.0 Urinary tract infection, site not specified; E03.9 Hypothyroidism, unspecified; Z85.3 Personal history of malignant neoplasm of breast; D64.9 Anemia, unspecified; R74.0 Nonspecific elevation of levels of transaminase and lactic acid dehydrogenase [LDH]; N20.0 Calculus of kidney; R74.8 Abnormal levels of other serum enzymes; E87.6 Hypokalemia; K59.00 Constipation, unspecified; M62.838 Other muscle spasm; B96.4 Proteus (mirabilis) (morganii) as the cause of diseases classified elsewhere; B95.2 Enterococcus as the cause of diseases classified elsewhere; B96.29 Other Escherichia coli [E. coli] as the cause of diseases classified elsewhere; N21.0 Calculus in bladder; T83.091A Other mechanical complication of indwelling urethral catheter, initial encounter; Y84.6 Urinary catheterization as the cause of abnormal reaction of the patient, or of later complication, without mention of misadventure at the time of the procedure; Z87.442 Personal history of urinary calculi
CPT/HCPCS: 36415; 36569; 36600; 71045-TC-FY; 71275-TC; 74176-TC; 76775-TC; 78708-TC; 80048; 80051; 80053; 81003; 82040; 82360; 82375; 82550; 82565; 82803; 82962; 83036; 83050; 83605; 83735; 84100; 84155; 84156; 84157; 84165; 84443; 84484; 85025; 85610; 85730; 87040; 87086; 87186; 88300-TC; 88304-TC; 93005; 93010; 94760; 99284-25; A9562; J0131; J7030

== ENCOUNTER 2018-10-21 09:20 | Inpatient (IN) | payer OTHER ==
[2018-10-21] MEDS ORDERED: ACETAMINOPHEN 1000 MG/100 ML VIAL (NON FORMULARY) IVPB ONE (10:05)
[2018-10-21] MEDS ORDERED: SODIUM CHLORIDE 0.9% 500 ML INFUS.BAG IV ONE (10:05)
--- NOTE | 2018-10-21 10:12 | PDOC ---
History of Present Illness - General Stated Complaint: LETHARGY Time Seen by Provider: 10/21/18 09:31 History Source: EMS, Shelter Records Exam Limitations: Dementia - History of Present Illness Initial Comments: 10/21/18 10:06 68YOF with h/o MS, neurogenic bladder d/o (s/p suprapubic catheter), anemia, recurrent drug resistant UTIs, and dysphagia who was BIBEMS for MRSA in the UA at [facility], as well as fever, AMS, and lethargy. The patient herself is unable to provide any medical history or to speak (except for saying "hello") and therefore all medical history is obtained through her SNF records. She is followed by Dr. Cardenas ([facility]). She was admitted here at [facility] for urosepsis from 09/30-10/06/18. She has an indwelling LUE PICC line and suprapubic catheter. Past History - Past Medical History Allergies/Adverse Reactions: Allergies Allergy/AdvReac Type Severity Reaction Status Date / Time No Known Allergies Allergy Verified 03/07/18 14:12 Home Medications: Ambulatory Orders Acetaminophen 650 mg PO Q4H PRN 03/28/16 Cholecalciferol (Vitamin D3) [Vitamin D3] 1,000 unit PO DAILY 03/28/16 Levothyroxine [Synthroid -] 100 mcg PO DAILY 03/28/16 Multivitamin [Poly-Vitamin] 1 each PO DAILY 03/28/16 Tamoxifen Citrate 20 mg PO DAILY 03/28/16 Docusate Sodium [Colace -] 100 mg PO HS 06/07/16 Lactobacillus Acidophilus [Bacid -] 1 tab PO DAILY tab 06/11/16 Ascorbic Acid [Vitamin C] 500 mg PO DAILY 06/09/17 Enoxaparin Sodium 40 mg SQ DAILY 06/09/17 Ferrous Sulfate *Liquid* [Feosol *Liquid*] 300 mg PO DAILY 06/09/17 Zinc Sulfate 220 mg PO BID 06/09/17 Calcium Carbonate/Vitamin D3 [Oyster Shell 500-Vit D3 200 Tb] 1 each PO DAILY Interferon Beta-1A [Avonex] 30 mcg IM WEEKLY 02/13/18 Pantoprazole Sodium 40 mg PO DAILY 02/13/18 Polyethylene Glycol 3350 [Miralax 119 gm Btl -] 17 gm PO BID bottle 02/20/18 Sennosides [Senna -] 2 tab PO HS tablet 02/20/18 Aa/Adrian Connie,Whey/Arg/C/Zn/Cu [Lps Critical Care Liquid] 30 ml PO BID 10/21/18 Bisacodyl Suppository [Dulcolax Suppository -] 10 mg RC DAILY 10/21/18 Cran/Vitc/Mannose/Fos/Bromeln [Uti-Stat Liquid] 30 ml PO BID 10/21/18 Sodium Phosphate/Na Biphos [Fleet Adult Rectal Enema -] 1 applic RC PRN PRN Anemia: Yes Asthma: No Cancer: Yes (breast) Cardiac Disorders: No CVA: No COPD: No CHF: No Dementia: Yes Diabetes: No GI Disorders: Yes (constipation, gerd) Disorders: Yes (NEUROGENIC BLADER, UTI) HTN: No Hypercholesterolemia: No Liver Disease: No Psychiatric Problems: Yes Seizures: Yes Thyroid Disease: Yes (hypo) - Surgical History Abdominal Surgery: No Appendectomy: No Cardiac Surgery: No Cholecystectomy: No Lung Surgery: No Neurologic Surgery: No Orthopedic Surgery: No - Immunization History Immunization Up to Date: Yes - Suicide/Smoking/Psychosocial Hx Smoking Status: No Smoking History: Unknown if ever smoked Have you smoked in the past 12 months: No Number of Cigarettes Smoked Daily: 0 'Breaking Loose' booklet given: 06/08/16 Hx Alcohol Use: No Drug/Substance Use Hx: No Substance Use Type: None Hx Substance Use Treatment: No Review of Systems - Review of Systems Able to Perform ROS?: No (AMS, nonverbal) *Physical Exam - Physical Exam Comments: GENERAL: alert, eyes open spontaneously, greets examiner by saying "hello", turns head to make eye contact and maintains eye contact/tracks examiner, but unable to answer questions, does not follow any commands, appears dehydrated, no distress HEENT: sunken appearance, PERRLA, EOMI, dry mucous membranes, tacky, poor dentition NECK/BACK: no spinal stepoff or deformity, no hematoma, neck supple CARDIOVASCULAR: regular rate/rhythm, normal S1S2, 2/6 systolic murmur LUSB, capillary refill 4 seconds, extremities wwp, no edema LUNGS/RESPIRATORY: nononlabored respirations, lungs CTAB GI/ABDOMEN: protuberent but soft, symmetric [id number], normoactive BS, soft, no midline pulsatile masses, no organomegaly : suprapubic catheter in place, wearing diaper, normal external appearance, no lesions, no swelling, non-malodorous, catheter tubing with significant sediment EXTREMITIES: chronic-appearing muscle atrophy, no acute deformity, no edema SKIN: warm and dry, +tenting, no pallor, no jaundice, no rash, no bruising, no skin breakdown, no cuts NEUROLOGICAL: Not alert or oriented, CN II-XII grossly intact, no obvious facial droop, otherwise patient is unable to participate in exam Heart Score/ECG Review #1 10/21/18 09:56 NSR, rate 99, normal axis, KGm=945ia and other intervals normal, TWI in III and V12, no ischemic CASEY or other ST changes ED Treatment Course - LABORATORY CBC & Chemistry Diagram: 10/21/18 10:00 10/21/18 10:00 Medical Decision Making - Medical Decision Making 10/21/18 10:09 Adult Pt p/w acute worsening of mental status, lethargy, fever. Has extensive history of urosepsis with most recent admission few weeks ago. Reportedly has MRSA in UA currently per [facility]. Initial Vital Signs Temp Pulse Resp BP Pulse Ox 100.5 F H 98 H 17 166/73 96 10/21/18 09:22 10/21/18 09:22 10/21/18 09:22 10/21/18 09:22 10/21/18 09:22 Exam: As noted in Physical Exam section. DDX IBNLT: infectious (e.g. UTI, PNA, bronchitis, cellulitis, meningitis, neurosyphilis, HIV-associated dementia), VS abnormalities (e.g. fever, hypertensive emergency), toxic-metabolic (e.g. medications, drugs e.g. serotonin syndrome/neuroleptic malignant syndrome or street drugs, electrolytes , hypothyroid, B12 deficiency), structural (e.g. epilepsy, brain tumor, CVA/TIA , NPH, CJD, ACS, PE, Hank disease), etc. W/U ordered: Labs as noted below, BCx from PICC line, EKG CXR TX ordered: IVF, vancomycin, ertapenem (per prior sensitivities for ESBL and multiple other UCx organisms). Pt to be admitted given acute change in mental status, sepsis vitals, known MRSA in UA. They will undoubtedly require further hospital observation, workup, and treatment. Call is placed to [facility] (admitting for [place] at this time). Blank Decision to Admit order is placed per ED protocol. EKG: Reviewed; results as noted in ECG Review section. CXR: Nothing acute. Laboratory Tests 10/21/18 10/21/18 10/21/18 10:00 10:00 10:00 WBC 8.5 RBC 4.09 Hgb 11.4 Hct 35.8 D MCV 87.5 MCH 28.0 MCHC 32.0 RDW 16.9 H Plt Count 246 D MPV 8.9 Absolute Neuts (auto) 6.3 Neutrophils % 73.9 D Lymphocytes % 22.1 D Monocytes % 3.7 L Eosinophils % 0.0 D Basophils % 0.3 Nucleated RBC % 0 PT with INR 12.60 INR 1.07 PTT (Actin FS) 31.0 VBG pH POC VBG pCO2 POC VBG pO2 VBG HCO3 VBG O2 Sat (Justen) VBG Base Excess Sodium 138 Potassium 3.5 Chloride 100 Carbon Dioxide 31 Anion Gap 6 L BUN 22 H Creatinine 0.3 L Est GFR (CKD-EPI)AfAm 138.28 Est GFR (CKD-EPI)NonAf 119.31 Random Glucose 160 H Calcium 8.8 Total Bilirubin 0.3 AST 24 ALT 26 Alkaline Phosphatase 66 Troponin I Total Protein 7.6 Albumin 2.7 L 10/21/18 10/21/18 10:00 10:00 WBC RBC Hgb Hct MCV MCH MCHC RDW Plt Count MPV Absolute Neuts (auto) Neutrophils % Lymphocytes % Monocytes % Eosinophils % Basophils % Nucleated RBC % PT with INR INR PTT (Actin FS) VBG pH 7.45 H POC VBG pCO2 46.7 POC VBG pO2 125 H VBG HCO3 31.6 H VBG O2 Sat (Justen) 99.0 H VBG Base Excess 7.0 H Sodium Potassium Chloride Carbon Dioxide Anion Gap BUN Creatinine Est GFR (CKD-EPI)AfAm Est GFR (CKD-EPI)NonAf Random Glucose Calcium Total Bilirubin AST ALT Alkaline Phosphatase Troponin I < 0.02 Total Protein Albumin Vital Signs Temperature 99.0 F 10/21/18 11:53 Pulse Rate 98 H 10/21/18 11:53 Respiratory Rate 16 10/21/18 11:53 Blood Pressure 158/72 10/21/18 11:53 O2 Sat by Pulse Oximetry (%) 98 10/21/18 11:53 I spoke with MARKETING OUTREACH COORDINATOR Mao representing [facility]. Patient will be admitted to their group, Decision to Admit order placed under Dr. Moreno per her request. *DC/Admit/Observation/Transfer Diagnosis at time of Disposition: Sepsis, UTI (urinary tract infection) due to urinary indwelling catheter - Discharge Dispostion Condition at time of disposition: Guarded Decision to Admit order: Yes - Referrals - Patient Instructions - Post Discharge Activity
--- NOTE | 2018-10-21 10:15 | PDOC ---
Attending Attestation - Resident Resident Name: Charla Shirley - ED Attending Attestation I have performed the following: I have examined & evaluated the patient, The case was reviewed & discussed with the resident, I agree w/resident's findings & plan - HPI HPI: 10/21/18 10:11 68 y/o F w/PMH of MS, neurogenic bladder d/o (s/p suprapubic catheter), anemia, recurrent drug resistant UTIs, dysphagia, hypothyroidism, presented from [facility] with lethargy/AMS, hypertension and tachycardia today. +MRSA in urine noted. PICC line currently in place for access at [place] history provided by [place] records; limited due to patient condition and [place] status Recent admission 09/30-10/06 2018 for UTI/septic. UTI with multiple organisms with non-functioning suprapubic catheter. Urine culture grew proteus mirabilis, morganella morganii, enterococcus avium, ESBL E. Coli and blood culture was negative. Pt was treated initially with zosyn and then switched to augmentin PO and meropenem after C&S were back. She also presented with TANISHA which improved with fluids and abx treatment. She also had her suprapubic catheter changed by urology during her admission. She continued to improved through admission. Before discharge back to [facility] a PICC line was placed and pt is to continue with ertapenem for 13 additional days and augmentin for 13 additional days. PMD: Dr Ambrose Cardenas [facility] - Physicial Exam PE: 10/21/18 10:12 Agree with the resident's HPI and PE as documented in the electronic medical record. NAD, nonverbal, PERRL, EOMI, dry mucus membranes, poor dentition, nl conjunctiva , anicteric; neck supple. lungs clear, but poor inspiratory effort and cooperation. regular rate, +soft holosystolic murmur, abdomen soft nontender. + suprapubic catheter in place, site c/d/i, no discharge. old G tube site in epigastrium, healed over. +LUE PICC line. normal color for ethnicity, WWP. very warm and moist to touch. - Medical Decision Making 10/21/18 10:13 See HPI for details. Prior notes reviewed, including admissions, discharges and consultations. records by [facility] Vital signs reviewed, +fever 100.5, normal HR and mildly hypertensive. normal respirations, no hypoxia. DDx AMS: infection, UTI, colonization, bacteremia, picc line infection, MRSA, metabolic/electrolyte derangement, encephalopathy, dehydration, CVA, ACS laboratory results and imaging reviewed, basic labs and lytes wnl, notable for low albumin/cr consistent with baseline MS and lack of muscle mass/tone UA_possible colonization, but outside NH records +MRSA. recheck. suprapubic catheter exchanged on last admission earlier this month. appears grossly infected with copious leuk esterase and wbcs, f/u urine cultures CXR_rotated, no acute chest pathology, clear lungs, PICC line at SVC junction, normal cardiac silhouette. Cardiac panel_neg trop EKG normal sinus rhythm at 99 bpm, no interval abnormalities, narrow QRS, ST and T wave segments and morphology normal. Nonspecific T wave abnormalities ED course - IVF, tylenol for fever, cultures by urine, blood and PICC site. - IV abx. vancomycin and ertapenem based on prior cultures, +MRSA and ESBL history with multiple organisms on prior cx. Admit to Dr Waters service for medical management, IP consultation as needed. 10/21/18 12:35 Heart Score/ECG Review #1 ECG reviewed & interpreted by me at: 09:55 General ECG Interpretation: Sinus Rhythm, Normal Rate, Normal Intervals, No acute ischemic changes Compared to previous ECG there are: No significant change EKG normal sinus rhythm at 99 bpm, no interval abnormalities, narrow QRS, ST and T wave segments and morphology normal. Nonspecific T wave abnormalities
[2018-10-21] MEDS ORDERED: ERTAPENEM SODIUM 1 GM in SODIUM CHLORIDE 50 ML IVPB ONE (10:16)
[2018-10-21] MEDS ORDERED: VANCOMYCIN 1 GM in D5W (PRE-DOCKED) 1,000 MG/250 ML IVPB ONE (10:16)
[2018-10-21] MEDS ORDERED: ACETAMINOPHEN INJECTION 100 ML IVPB ONE (10:35)
[2018-10-21 10:44] LABS: BASO % 0.3 % (0-2.0); HEMATOCRIT 35.8 % (32.4-45.2); HEMOGLOBIN 11.4 GM/dL (10.7-15.3); LYMPH % 22.1 % (8-40); MEAN CELL VOLUME 87.5 fl (80-96); MEAN PLT VOLUME 8.9 fl (7.5-11.1); MONO % 3.7 % (3.8-10.2); NEUT % 73.9 % (42.8-82.8); PLATELET COUNT 246 K/MM3 (134-434); RBC 4.09 M/mm3 (3.60-5.2); RDW 16.9 % (11.6-15.6); WHITE BLOOD COUNT 8.5 K/mm3 (4.0-10.0)
[2018-10-21 10:46] LABS: VENOUS PC02 46.7 mmHg (41-51); VENOUS PH 7.45 (7.31-7.41)
[2018-10-21 11:05] LABS: INR 1.07 (0.83-1.09); PROTHROMBIN TIME (PATIENT) 12.6 SEC (9.7-13.0)
[2018-10-21 11:11] LABS: ALBUMIN 2.7 g/dl (3.4-5.0); BILIRUBIN,TOTAL 0.3 mg/dL (0.2-1); CALCIUM 8.8 mg/dL (8.5-10.1); CREATININE 0.3 mg/dL (0.55-1.3); POTASSIUM 3.5 mmol/L (3.5-5.1); TOT PROT 7.6 g/dl (6.4-8.2)
[2018-10-21 11:25] LABS: EPI CELLS 20.1 /HPF (0-5/HPF); HYALINE CASTS 220 /lpf (0-8); URINE APPEARANCE TURBID; URINE BACTERIA 14.2 /hpf (NEGATIVE); URINE BILIRUBIN NEGATIVE (NEGATIVE); URINE COLOR YELLOW; URINE GLUCOSE (UA) NEGATIVE (NEGATIVE); URINE KETONE 1+ (NEGATIVE); URINE LEUK ESTERASE 3+ (NEGATIVE); URINE NITRITE NEGATIVE (NEGATIVE); URINE PROTEIN 2+ (NEGATIVE); URINE WBC 4146 /hpf (0-5)
[2018-10-21] MEDS ORDERED: SODIUM PHOSPHATE/NA BIPHOS 133 ML ENEMA RC PRN (12:09)
[2018-10-21] MEDS ORDERED: ACETAMINOPHEN 325 MG TABLET (FP) PO PRN (12:09)
[2018-10-21] MEDS ORDERED: VANCOMYCIN 1 GRAM (PRE-DOCKED) 1,000 MG/250 ML BAG IVPB ONE (12:29)
[2018-10-21 12:45] LABS: URINE RBC 285.1 /hpf (0-4)
[2018-10-21 12:46] LABS: YEAST PRESENT (NEGATIVE)
--- NOTE | 2018-10-21 14:44 | CON.ID ---
Consult - History of Present Illness History of Present Illness: 68 y.o. female with PMH of MS, dementia, hypothyroidism, anemia, dysphagia, neurogenic bladder with SPC, and recurrent UTIs presents from [facility] with fever and AMS. She was recently hospitalized (09/30-10/06/18) and treated for ESBL + UTI/ Sepsis and discharged to [place] to complete 14 days of antibiotics (Ertapenem, augmentin) via PICC after her SPC was replaced. As per NH pt with +MRSA in urine cx. In the ER she was noted to have temp of 100.5F and responsive but weak , not answering questions. Currently pt is alert, without acute distress, clinically the same. No other events reported. 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: Dementia, Multiple Sclerosis Gastrointestinal: Yes: GERD Renal/: Yes: Neurogenic Bladder, Renal Calculi, UTI ...: No Infectious Disease: Yes: MRSA Rheumatology: Yes: Other (multiple sclerosis) Endocrine: Yes: Hypothyroidism - Past Surgical History Past Surgical History: Yes: Mastectomy - Alcohol/Substance Use Hx Alcohol Use: No History of Substance Use: reports: None - Smoking History Smoking history: Unknown if ever smoked Have you smoked in the past 12 months: No Aproximately how many cigarettes per day: 0 - Social History ADL: Support Services History of Recent Travel: No Home Medications - Allergies Allergies/Adverse Reactions: Allergies Allergy/AdvReac Type Severity Reaction Status Date / Time No Known Allergies Allergy Verified 03/07/18 14:12 - Home Medications Home Medications: Ambulatory Orders Acetaminophen 650 mg PO Q4H PRN 03/28/16 Cholecalciferol (Vitamin D3) [Vitamin D3] 1,000 unit PO DAILY 03/28/16 Levothyroxine [Synthroid -] 100 mcg PO DAILY 03/28/16 Multivitamin [Poly-Vitamin] 1 each PO DAILY 03/28/16 Tamoxifen Citrate 20 mg PO DAILY 03/28/16 Docusate Sodium [Colace -] 100 mg PO HS 06/07/16 Lactobacillus Acidophilus [Bacid -] 1 tab PO DAILY tab 06/11/16 Ascorbic Acid [Vitamin C] 500 mg PO DAILY 06/09/17 Enoxaparin Sodium 40 mg SQ DAILY 06/09/17 Ferrous Sulfate *Liquid* [Feosol *Liquid*] 300 mg PO DAILY 01/11/18 Zinc Sulfate 220 mg PO BID 06/09/17 Calcium Carbonate/Vitamin D3 [Oyster Shell 500-Vit D3 200 Tb] 1 each PO DAILY Interferon Beta-1A [Avonex] 30 mcg IM WEEKLY 02/13/18 Pantoprazole Sodium 40 mg PO DAILY 02/13/18 Polyethylene Glycol 3350 [Miralax 119 gm Btl -] 17 gm PO BID bottle 02/20/18 Sennosides [Senna -] 2 tab PO HS tablet 02/20/18 Aa/Tetonia Connie,Whey/Arg/C/Zn/Cu [Lps Critical Care Liquid] 30 ml PO BID 10/21/18 Bisacodyl Suppository [Dulcolax Suppository -] 10 mg RC DAILY 10/21/18 Cran/Vitc/Mannose/Fos/Bromeln [Uti-Stat Liquid] 30 ml PO BID 10/21/18 Sodium Phosphate/Na Biphos [Fleet Adult Rectal Enema -] 1 applic RC PRN PRN Review of Systems Unable to obtain ROS, reason: Pt not answering question Physical Exam Vital Signs: Vital Signs Temperature 98.6 F 10/21/18 14:10 Pulse Rate 104 H 10/21/18 14:10 Respiratory Rate 18 10/21/18 14:10 Blood Pressure 154/84 10/21/18 14:10 O2 Sat by Pulse Oximetry (%) 98 10/21/18 13:48 Constitutional: Yes: No Distress, Calm HENT: Yes: Atraumatic Neck: Yes: Supple Cardiovascular: Yes: Tachycardia Respiratory: Yes: CTA Bilaterally Gastrointestinal: Yes: Normal Bowel Sounds, Soft Renal/: Yes: Other (+SPC, purulent urine) Extremities: Yes: Other (RUE PICC, no erythema/discharge) Integumentary: Yes: WNL Neurological: Yes: Alert, Weakness Labs: CBC, BMP 10/21/18 10:00 10/21/18 10:00 Laboratory Tests 10/21/18 10/21/18 10/21/18 10:00 10:00 10:00 WBC 8.5 RBC 4.09 Hgb 11.4 Hct 35.8 D MCV 87.5 MCH 28.0 MCHC 32.0 RDW 16.9 H Plt Count 246 D MPV 8.9 Absolute Neuts (auto) 6.3 Neutrophils % 73.9 D Lymphocytes % 22.1 D Monocytes % 3.7 L Eosinophils % 0.0 D Basophils % 0.3 Nucleated RBC % 0 PT with INR 12.60 INR 1.07 PTT (Actin FS) 31.0 VBG pH POC VBG pCO2 POC VBG pO2 VBG HCO3 VBG O2 Sat (Justen) VBG Base Excess Sodium 138 Potassium 3.5 Chloride 100 Carbon Dioxide 31 Anion Gap 6 L BUN 22 H Creatinine 0.3 L Est GFR (CKD-EPI)AfAm 138.28 Est GFR (CKD-EPI)NonAf 119.31 Random Glucose 160 H Lactic Acid Calcium 8.8 Total Bilirubin 0.3 AST 24 ALT 26 Alkaline Phosphatase 66 Troponin I Total Protein 7.6 Albumin 2.7 L Urine Color Urine Appearance Urine pH Ur Specific [place] Urine Protein Urine Glucose (UA) Urine Ketones Urine Blood Urine Nitrite Urine Bilirubin Urine Urobilinogen Ur Leukocyte Esterase Urine WBC (Auto) Urine RBC (Auto) Urine Casts (Auto) U Epithel Cells (Auto) Urine Bacteria (Auto) Urine Yeast (Auto) 10/21/18 10/21/18 10/21/18 10:00 10:00 10:00 WBC RBC Hgb Hct MCV MCH MCHC RDW Plt Count MPV Absolute Neuts (auto) Neutrophils % Lymphocytes % Monocytes % Eosinophils % Basophils % Nucleated RBC % PT with INR INR PTT (Actin FS) VBG pH 7.45 H POC VBG pCO2 46.7 POC VBG pO2 125 H VBG HCO3 31.6 H VBG O2 Sat (Justen) 99.0 H VBG Base Excess 7.0 H Sodium Potassium Chloride Carbon Dioxide Anion Gap BUN Creatinine Est GFR (CKD-EPI)AfAm Est GFR (CKD-EPI)NonAf Random Glucose Lactic Acid 0.9 Calcium Total Bilirubin AST ALT Alkaline Phosphatase Troponin I < 0.02 Total Protein Albumin Urine Color Urine Appearance Urine pH Ur Specific [place] Urine Protein Urine Glucose (UA) Urine Ketones Urine Blood Urine Nitrite Urine Bilirubin Urine Urobilinogen Ur Leukocyte Esterase Urine WBC (Auto) Urine RBC (Auto) Urine Casts (Auto) U Epithel Cells (Auto) Urine Bacteria (Auto) Urine Yeast (Auto) 10/21/18 10:45 WBC RBC Hgb Hct MCV MCH MCHC RDW Plt Count MPV Absolute Neuts (auto) Neutrophils % Lymphocytes % Monocytes % Eosinophils % Basophils % Nucleated RBC % PT with INR INR PTT (Actin FS) VBG pH POC VBG pCO2 POC VBG pO2 VBG HCO3 VBG O2 Sat (Justen) VBG Base Excess Sodium Potassium Chloride Carbon Dioxide Anion Gap BUN Creatinine Est GFR (CKD-EPI)AfAm Est GFR (CKD-EPI)NonAf Random Glucose Lactic Acid Calcium Total Bilirubin AST ALT Alkaline Phosphatase Troponin I Total Protein Albumin Urine Color Yellow Urine Appearance Turbid Urine pH 6.0 D Ur Specific [place] 1.016 Urine Protein 2+ H Urine Glucose (UA) Negative Urine Ketones 1+ H Urine Blood 3+ H Urine Nitrite Negative Urine Bilirubin Negative Urine Urobilinogen 1.0 Ur Leukocyte Esterase 3+ H Urine WBC (Auto) 4146 Urine RBC (Auto) 285.1 Urine Casts (Auto) 220 U Epithel Cells (Auto) 20.1 Urine Bacteria (Auto) 14.2 Urine Yeast (Auto) Present Imaging - Results X-ray: Report Reviewed Ultrasound: Report Reviewed (10/01/18 - renal U/S - mild Lt hydronephrosis) Problem List - Problems (1) Sepsis Code(s): A41.9 - SEPSIS, UNSPECIFIED ORGANISM (2) UTI (urinary tract infection) due to urinary indwelling catheter Code(s): T83.51XA - ; N39.0 - URINARY TRACT INFECTION, SITE NOT SPECIFIED (3) TANISHA (acute kidney injury) Code(s): N17.9 - ACUTE KIDNEY FAILURE, UNSPECIFIED (4) Breast CA Code(s): C50.919 - MALIGNANT NEOPLASM OF UNSP SITE OF UNSPECIFIED FEMALE BREAST (5) 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 Code(s): G35 - MULTIPLE SCLEROSIS; R53.2 - FUNCTIONAL QUADRIPLEGIA (6) GERD (gastroesophageal reflux disease) Code(s): K21.9 - GASTRO-ESOPHAGEAL REFLUX DISEASE WITHOUT ESOPHAGITIS Qualifiers: Esophagitis presence: without esophagitis Qualified Code(s): K21.9 - Gastro -esophageal reflux disease without esophagitis (7) Hydronephrosis Code(s): N13.30 - UNSPECIFIED HYDRONEPHROSIS Qualifiers: Hydronephrosis type: with renal and ureteral calculous obstruction Qualified Code(s): N13.2 - Hydronephrosis with renal and ureteral calculous obstruction (8) Hypothyroid Code(s): E03.9 - HYPOTHYROIDISM, UNSPECIFIED (9) Nephrolithiasis Code(s): N20.0 - CALCULUS OF KIDNEY (10) Neurogenic bladder Code(s): N31.9 - NEUROMUSCULAR DYSFUNCTION OF BLADDER, UNSPECIFIED Assessment/Plan Complicated UTI Sepsis Neurogenic bladder s/p SPC MS Dementia -- Pt alert, currently afebrile -- will switch to Meropenem, continue Vancomycin, monitor renal function -- f/u blood and urine culture results -- monitor vitals
--- NOTE | 2018-10-21 15:27 | EKG ---
Test Reason : Blood Pressure : / mmHG Vent. Rate : 099 BPM Atrial Rate : 099 BPM P-R Int : 134 ms QRS Dur : 080 ms QT Int : 368 ms P-R-T Axes : 047 -17 015 degrees QTc Int : 472 ms NORMAL SINUS RHYTHM NONSPECIFIC ST AND T WAVE ABNORMALITY ABNORMAL ECG WHEN COMPARED WITH ECG OF 30-SEP-2018 04:18, PREMATURE VENTRICULAR COMPLEXES ARE NO LONGER PRESENT CRITERIA FOR INFERIOR INFARCT ARE NO LONGER PRESENT Confirmed by MD Ken, Thony ([id number]) on 10/21/2018 3:27:16 PM Referred By: Confirmed By:Thony Rogers MD
--- NOTE | 2018-10-21 18:24 | HP ---
Admitting History and Physical - Admission Chief Complaint: Fever and AMS History of Present Illness: Patient is a 68 y/o female with past medical history of MS, neurogenic bladder, suprapubic catheter, anemia, recurrent drug resistent UTI. Patient was brought to [facility] from [facility] for MRSA in . Patient has also been experiencing AMS, fever, and increased lethargy. Patient is non-verbal and poor informant. 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: Yes: Dementia, Multiple Sclerosis Gastrointestinal: Yes: GERD Renal/: Yes: Neurogenic Bladder, Renal Calculi, UTI ...: No Heme/Onc: No: Anemia, B12 Deficiency, Bleeding Disorder, Cancer, Current Chemotherapy, Current Radiation Therapy, Hemochromatosis, Hypercoaguable State, Myeloproliferative Synd, Sickle Cell Disease, Sickle Cell Trait, Thrombocytopenia, Other Infectious Disease: Yes: MRSA Rheumatology: Yes: Other (multiple sclerosis) Endocrine: Yes: Hypothyroidism - Past Surgical History Past Surgical History: Yes: Mastectomy - Smoking History Smoking history: Unknown if ever smoked Have you smoked in the past 12 months: No Aproximately how many cigarettes per day: 0 - Alcohol/Substance Use Hx Alcohol Use: No History of Substance Use: reports: None - Social History ADL: Support Services History of Recent Travel: No Home Medications - Allergies Allergies/Adverse Reactions: Allergies Allergy/AdvReac Type Severity Reaction Status Date / Time No Known Allergies Allergy Verified 03/07/18 14:12 - Home Medications Home Medications: Ambulatory Orders Acetaminophen 650 mg PO Q4H PRN 03/28/16 Cholecalciferol (Vitamin D3) [Vitamin D3] 1,000 unit PO DAILY 03/28/16 Levothyroxine [Synthroid -] 100 mcg PO DAILY 03/28/16 Multivitamin [Poly-Vitamin] 1 each PO DAILY 03/28/16 Tamoxifen Citrate 20 mg PO DAILY 03/28/16 Docusate Sodium [Colace -] 100 mg PO HS 06/07/16 Lactobacillus Acidophilus [Bacid -] 1 tab PO DAILY tab 06/11/16 Ascorbic Acid [Vitamin C] 500 mg PO DAILY 06/09/17 Enoxaparin Sodium 40 mg SQ DAILY 06/09/17 Ferrous Sulfate *Liquid* [Feosol *Liquid*] 300 mg PO DAILY 06/09/17 Zinc Sulfate 220 mg PO BID 06/09/17 Calcium Carbonate/Vitamin D3 [Oyster Shell 500-Vit D3 200 Tb] 1 each PO DAILY Interferon Beta-1A [Avonex] 30 mcg IM WEEKLY 02/13/18 Pantoprazole Sodium 40 mg PO DAILY 02/13/18 Polyethylene Glycol 3350 [Miralax 119 gm Btl -] 17 gm PO BID bottle 02/20/18 Sennosides [Senna -] 2 tab PO HS tablet 02/20/18 Aa/[place] Connie,[place]/Arg/C/Zn/Cu [Lps Critical Care Liquid] 30 ml PO BID 10/21/18 Bisacodyl Suppository [Dulcolax Suppository -] 10 mg RC DAILY 10/21/18 Cran/Vitc/Mannose/Fos/Bromeln [Uti-Stat Liquid] 30 ml PO BID 10/21/18 Sodium Phosphate/Na Biphos [Fleet Adult Rectal Enema -] 1 applic RC PRN PRN Review of Systems Unable to obtain ROS, reason: patient non verbal Physical Examination Vital Signs: Vital Signs Temperature 98.6 F 10/21/18 14:10 Pulse Rate 104 H 10/21/18 14:10 Respiratory Rate 18 10/21/18 14:10 Blood Pressure 154/84 10/21/18 14:10 O2 Sat by Pulse Oximetry (%) 98 10/21/18 13:48 Constitutional: Yes: No Distress, Calm Eyes: Yes: Conjunctiva Clear HENT: Yes: Atraumatic Cardiovascular: Yes: Tachycardia Respiratory: Yes: Regular, CTA Bilaterally Gastrointestinal: Yes: Normal Bowel Sounds, Soft Musculoskeletal: Yes: Muscle Weakness Extremities: Yes: Other (LUE PICC line LLE contracture) Edema: No Neurological: Yes: Alert, Pre-Existing Deficit Psychiatric: Yes: Alert Labs: CBC, BMP 10/21/18 10:00 10/21/18 10:00 Imaging - Results Chest X-ray: Report Reviewed Problem List - Problems (1) Sepsis Assessment/Plan: -UC and BC pending -CXR shows left base aerated with persistent residual infiltrate or atelectasis -ID on board -Meropenem and Vancomycin -WBC 8.5 -febrile -tylenol IVPB for temp >100F -IV hydration Code(s): A41.9 - SEPSIS, UNSPECIFIED ORGANISM (2) 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 Assessment/Plan: -fall precaution -Avonex Code(s): G35 - MULTIPLE SCLEROSIS; R53.2 - FUNCTIONAL QUADRIPLEGIA (3) GERD (gastroesophageal reflux disease) Assessment/Plan: -Pantoprazole Code(s): K21.9 - GASTRO-ESOPHAGEAL REFLUX DISEASE WITHOUT ESOPHAGITIS Qualifiers: Esophagitis presence: without esophagitis Qualified Code(s): K21.9 - Gastro -esophageal reflux disease without esophagitis (4) Hypothyroid Assessment/Plan: -Levothyroxine Code(s): E03.9 - HYPOTHYROIDISM, UNSPECIFIED (5) Neurogenic bladder Assessment/Plan: -suprapubic catheter -UC pending Code(s): N31.9 - NEUROMUSCULAR DYSFUNCTION OF BLADDER, UNSPECIFIED Assessment/Plan see problem list dvt ppx
[2018-10-21] MEDS ORDERED: MEROPENEM 1 GM VIAL (RESTRICTED TO ID) IVPB ONE (18:42)
[2018-10-21] MEDS ORDERED: DEXTROSE 5%-WATER 100 ML IVPB ONE (18:42)
[2018-10-21] MEDS: MEROPENEM 1 GM in DEXTROSE 5%-WATER 100 ML IVPB SCH (18:45)
[2018-10-21] MEDS: DEXTROSE 5%-0.45% SALINE 1,000 ML IV SCH (18:45)
[2018-10-21] MEDS: ZINC SULFATE 220 MG CAPSULE (FP) PO SCH (21:14)
[2018-10-21] MEDS: SENNOSIDES 8.6MG TABLET (FP) PO SCH (21:14)
[2018-10-21] MEDS: VANCOMYCIN 750 MG in DEXTROSE 5%-WATER - 250 ML IVPB SCH (21:14)
[2018-10-21] MEDS: POLYETHYLENE GLYCOL 3350 119 GM BTL PO SCH (21:14)
[2018-10-21] MEDS: DOCUSATE SODIUM 100 MG CAPSULE (FP) PO SCH (21:14)
[2018-10-21] MEDS ORDERED: PATIENT'S OWN MEDICATION (NON-FORMULARY) (Aa/Hydro Coll,Whey/Arg/C/Zn/Cu [Lps Critical Car PO SCH (22:00)
[2018-10-21] MEDS ORDERED: PATIENT'S OWN MEDICATION (NON-FORMULARY) (Cran/Vitc/Mannose/Fos/Bromeln [Uti-Stat Liquid] PO SCH (22:00)
[2018-10-22] MEDS ORDERED: MEROPENEM 1 GM VIAL (RESTRICTED TO ID) IVPB ONE ×3 (00:48→17:19)
[2018-10-22] MEDS ORDERED: DEXTROSE 5%-WATER 100 ML IVPB ONE ×3 (00:48→17:20)
[2018-10-22] MEDS: MEROPENEM 1 GM in DEXTROSE 5%-WATER 100 ML IVPB SCH ×3 (01:23→19:37)
[2018-10-22] MEDS: LEVOTHYROXINE NA 100 MCG TABLET (FP) PO SCH (06:03)
[2018-10-22 07:39] LABS: BASO % 0.4 % (0-2.0); HEMATOCRIT 31.4 % (32.4-45.2); HEMOGLOBIN 9.9 GM/dL (10.7-15.3); LYMPH % 5.6 % (8-40); MCH 27.9 pg (25.7-33.7); MCHC 31.7 g/dl (32.0-36.0); MEAN CELL VOLUME 87.9 fl (80-96); MEAN PLT VOLUME 8.7 fl (7.5-11.1); MONO % 1.5 % (3.8-10.2); NEUT % 92.5 % (42.8-82.8); PLATELET COUNT 209 K/MM3 (134-434); RBC 3.57 M/mm3 (3.60-5.2); RDW 16.8 % (11.6-15.6); WHITE BLOOD COUNT 24.2 K/mm3 (4.0-10.0)
[2018-10-22 08:24] LABS: ALBUMIN 2.2 g/dl (3.4-5.0); BILIRUBIN,TOTAL 0.3 mg/dL (0.2-1); CALCIUM 8.1 mg/dL (8.5-10.1); CREATININE 0.2 mg/dL (0.55-1.3); MAGNESIUM 2.2 mg/dL (1.8-2.4); N-TERMINAL BNP 2143.7 pg/ml (5-125); TOT PROT 6.3 g/dl (6.4-8.2)
[2018-10-22 08:33] LABS: POTASSIUM 2.9 mmol/L (3.5-5.1)
[2018-10-22] MEDS ORDERED: PT OWN MED DRAWER 7, Y5N ONE ×2 (09:05→21:52)
[2018-10-22 09:09] LABS: INR 1.08 (0.83-1.09); PROTHROMBIN TIME (PATIENT) 12.7 SEC (9.7-13.0)
[2018-10-22] MEDS: VANCOMYCIN 750 MG in DEXTROSE 5%-WATER - 250 ML IVPB SCH ×2 (09:15→21:57)
[2018-10-22] MEDS: CALCIUM 500MG/VIT-D 200 UNITS COMBO TABLET (FP) PO SCH (09:15)
[2018-10-22] MEDS: CHOLECALCIFEROL (VIT D3) 1,000 UNIT (25 MCG) TABLET PO SCH (09:15)
[2018-10-22] MEDS: LACTOBACILLUS ACIDOPHILUS 1 TABLET PO SCH (09:15)
[2018-10-22] MEDS: ASCORBIC ACID 500 MG TABLET (FP) PO SCH (09:15)
[2018-10-22] MEDS: PANTOPRAZOLE 40 MG TABLET (FP) PO SCH (09:15)
[2018-10-22] MEDS: MULTIVITAMINS (DAILY MVI) TABLET (FP) PO SCH (09:15)
[2018-10-22] MEDS: ZINC SULFATE 220 MG CAPSULE (FP) PO SCH ×2 (09:15→21:56)
[2018-10-22] MEDS: POLYETHYLENE GLYCOL 3350 119 GM BTL PO SCH ×2 (09:16→21:57)
[2018-10-22] MEDS: BISACODYL 10 MG SUPP.RECT RC SCH (09:16)
[2018-10-22] MEDS: TAMOXIFEN CITRATE 10 MG TABLET PO SCH (09:16)
[2018-10-22] MEDS: ENOXAPARIN NA (PORCINE) 40 MG/0.4 ML DISP.SYRIN SQ SCH (09:16)
[2018-10-22] MEDS: FERROUS SO4 325 MG TABLET (FP) PO SCH (09:25)
[2018-10-22 13:31] LABS: ANISOCYTOSIS 0; MACROCYTOSIS 0; PLATELET ESTIMATE NORMAL
--- NOTE | 2018-10-22 13:53 | PN ---
Progress Note, Physician History of Present Illness: Pt is alert, afebrile, responsive. Afebrile but wbc increased to 24K. No diarrhea or other events reported. - Current Medication List Current Medications: Active Medications Acetaminophen (Tylenol -) 650 mg PO Q4H PRN PRN Reason: PAIN Last Admin: 10/21/18 18:47 Dose: 650 mg Ascorbic Acid (Vitamin C -) 500 mg PO DAILY [facility] Last Admin: 10/22/18 09:15 Dose: 500 mg Bisacodyl (Dulcolax Suppository -) 10 mg RC DAILY [facility] Last Admin: 10/22/18 09:16 Dose: 10 mg Calcium Carbonate/Cholecalciferol (Os-Mikie 500+D -) 1 tab PO DAILY [facility] Last Admin: 10/22/18 09:15 Dose: 1 tab Cholecalciferol (Vitamin D3 -) 1,000 unit PO DAILY [facility] Last Admin: 10/22/18 09:15 Dose: 1,000 unit Docusate Sodium (Colace -) 100 mg PO HS [facility] Last Admin: 10/21/18 21:14 Dose: 100 mg Enoxaparin Sodium (Lovenox -) 40 mg SQ DAILY [facility] Last Admin: 10/22/18 09:16 Dose: 40 mg Ferrous Sulfate (Feosol -) 325 mg PO DAILY [facility] Last Admin: 10/22/18 09:25 Dose: 325 mg Meropenem 1 gm/ Dextrose 100 mls @ 200 mls/hr IVPB Q8H-IV [facility] Last Admin: 10/22/18 11:26 Dose: 200 mls/hr Vancomycin HCl 750 mg/ (Dextrose) 250 mls @ 166.667 mls/hr IVPB Q12H [facility]; Protocol Last Admin: 10/22/18 09:15 Dose: 166.667 mls/hr Dextrose/Sodium Chloride (D5-1/2ns -) 1,000 mls @ 42 mls/hr IV ASDIR [facility] Last Admin: 10/21/18 18:45 Dose: 42 mls/hr Lactobacillus Acidophilus (Bacid -) 1 tab PO DAILY [facility] Last Admin: 10/22/18 09:15 Dose: 1 tab Levothyroxine Sodium (Synthroid -) 100 mcg PO 0700 [facility] Last Admin: 10/22/18 06:03 Dose: 100 mcg Multivitamins/Minerals/Vitamin C (Tab-A-Vit -) 1 tab PO DAILY [facility] Last Admin: 10/22/18 09:15 Dose: 1 tab Non-Formulary Medication (Interferon Beta-1a [Avonex]) 30 mcg IM WEEKLY [facility] Pantoprazole Sodium (Protonix -) 40 mg PO DAILY [facility] Last Admin: 10/22/18 09:15 Dose: 40 mg Polyethylene Glycol (Miralax (For Daily Use) -) 17 gm PO BID [facility] Last Admin: 10/22/18 09:16 Dose: 17 grams Senna (Senna -) 2 tab PO HS [facility] Last Admin: 10/21/18 21:14 Dose: 2 tab Sodium Phosphate (Fleet Adult Rectal Enema -) 133 ml RC PRN PRN PRN Reason: CONSTIPATION Tamoxifen Citrate (Tamoxifen Citrate) 20 mg PO DAILY [facility] Last Admin: 10/22/18 09:16 Dose: 20 mg Zinc Sulfate (Orazinc -) 220 mg PO BID [facility] Last Admin: 10/22/18 09:15 Dose: 220 mg - Objective Vital Signs: Vital Signs Temperature 98.5 F 10/22/18 06:00 Pulse Rate 101 H 10/22/18 06:00 Respiratory Rate 20 10/22/18 06:00 Blood Pressure 109/63 10/22/18 06:00 O2 Sat by Pulse Oximetry (%) 98 10/21/18 13:48 Constitutional: Yes: No Distress Cardiovascular: Yes: Tachycardia Respiratory: Yes: Regular Gastrointestinal: Yes: Normal Bowel Sounds, Soft Genitourinary: Yes: Chopra Present Integumentary: Yes: WNL Neurological: Yes: Alert Labs: CBC, BMP 10/22/18 07:00 10/22/18 07:00 INR, PTT INR 1.08 (0.83-1.09) 10/22/18 07:00 Microbiology 10/21/18 10:00 Blood - Peripheral Venous Blood Culture - Preliminary NO GROWTH OBTAINED AFTER 24 HOURS, INCUBATION TO CONTINUE FOR 4 DAYS. 10/21/18 10:00 Blood - Peripheral Venous Blood Culture - Preliminary NO GROWTH OBTAINED AFTER 24 HOURS, INCUBATION TO CONTINUE FOR 4 DAYS. 10/21/18 10:45 Urine - Urine Clean Catch Urine Culture - Final Yeast Like Organism - ....Imaging Chest X-ray: Report Reviewed Problem List - Problems (1) Sepsis Code(s): A41.9 - SEPSIS, UNSPECIFIED ORGANISM (2) UTI (urinary tract infection) due to urinary indwelling catheter Code(s): T83.51XA - ; N39.0 - URINARY TRACT INFECTION, SITE NOT SPECIFIED (3) TANISHA (acute kidney injury) Code(s): N17.9 - ACUTE KIDNEY FAILURE, UNSPECIFIED (4) Breast CA Code(s): C50.919 - MALIGNANT NEOPLASM OF UNSP SITE OF UNSPECIFIED FEMALE BREAST (5) 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 Code(s): G35 - MULTIPLE SCLEROSIS; R53.2 - FUNCTIONAL QUADRIPLEGIA (6) GERD (gastroesophageal reflux disease) Code(s): K21.9 - GASTRO-ESOPHAGEAL REFLUX DISEASE WITHOUT ESOPHAGITIS Qualifiers: Esophagitis presence: without esophagitis Qualified Code(s): K21.9 - Gastro -esophageal reflux disease without esophagitis (7) Hydronephrosis Code(s): N13.30 - UNSPECIFIED HYDRONEPHROSIS Qualifiers: Hydronephrosis type: with renal and ureteral calculous obstruction Qualified Code(s): N13.2 - Hydronephrosis with renal and ureteral calculous obstruction (8) Hypothyroid Code(s): E03.9 - HYPOTHYROIDISM, UNSPECIFIED (9) Nephrolithiasis Code(s): N20.0 - CALCULUS OF KIDNEY (10) Neurogenic bladder Code(s): N31.9 - NEUROMUSCULAR DYSFUNCTION OF BLADDER, UNSPECIFIED Assessment/Plan Complicated UTI Sepsis Leukocytosis Neurogenic bladder s/p SPC MS Dementia -- wbc increased to 24K, afebrile, more alert -- blood cultures no growth in 24hr, continue follow -- Urine culture results noted, +yeast, will add Diflucan -- If no other organisms isolated will consider d/c Meropenem/Vancomycin -- If diarrhea noted send stool for Cdiff testing -- repeat cbc in a.m. -- monitor vitals closely
--- NOTE | 2018-10-22 15:33 | CON.CARD ---
Consult Consult Specialty:: Cardiology - History of Present Illness Chief Complaint: Tachycardia History of Present Illness: This is a 68 year old female with MS and a neurogenic bladder d/o (s/p suprapubic catheter), anemia, recurrent drug resistant UTIs, dysphagia, hypothyroidism, presented from [facility] with lethargy/AMS, hypertension and tachycardia today. +MRSA in urine noted. EKG NSR at 99 BPM with normal intervals, normal axis, and NSSTTW changes. 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 Gastrointestinal: Yes: GERD Renal/: Yes: Neurogenic Bladder, Renal Calculi, UTI ...: No Infectious Disease: Yes: MRSA Rheumatology: Yes: Other (multiple sclerosis) Endocrine: Yes: Hypothyroidism - Past Surgical History Past Surgical History: Yes: Mastectomy - Alcohol/Substance Use Hx Alcohol Use: No History of Substance Use: reports: None - Smoking History Smoking history: Unknown if ever smoked Have you smoked in the past 12 months: No Aproximately how many cigarettes per day: 0 - Social History ADL: Support Services History of Recent Travel: No Home Medications - Allergies Allergies/Adverse Reactions: Allergies Allergy/AdvReac Type Severity Reaction Status Date / Time No Known Allergies Allergy Verified 03/07/18 14:12 - Home Medications Home Medications: Ambulatory Orders Acetaminophen 650 mg PO Q4H PRN 03/28/16 Cholecalciferol (Vitamin D3) [Vitamin D3] 1,000 unit PO DAILY 03/28/16 Levothyroxine [Synthroid -] 100 mcg PO DAILY 03/28/16 Multivitamin [Poly-Vitamin] 1 each PO DAILY 03/28/16 Tamoxifen Citrate 20 mg PO DAILY 03/28/16 Docusate Sodium [Colace -] 100 mg PO HS 06/07/16 Lactobacillus Acidophilus [Bacid -] 1 tab PO DAILY tab 06/11/16 Ascorbic Acid [Vitamin C] 500 mg PO DAILY 06/09/17 Enoxaparin Sodium 40 mg SQ DAILY 06/09/17 Ferrous Sulfate *Liquid* [Feosol *Liquid*] 300 mg PO DAILY 06/09/17 Zinc Sulfate 220 mg PO BID 06/09/17 Calcium Carbonate/Vitamin D3 [Oyster Shell 500-Vit D3 200 Tb] 1 each PO DAILY Interferon Beta-1A [Avonex] 30 mcg IM WEEKLY 02/13/18 Pantoprazole Sodium 40 mg PO DAILY 02/13/18 Polyethylene Glycol 3350 [Miralax 119 gm Btl -] 17 gm PO BID bottle 02/20/18 Sennosides [Senna -] 2 tab PO HS tablet 02/20/18 Aa/[place] Connie,[place]/Arg/C/Zn/Cu [Lps Critical Care Liquid] 30 ml PO BID 10/21/18 Bisacodyl Suppository [Dulcolax Suppository -] 10 mg RC DAILY 10/21/18 Cran/Vitc/Mannose/Fos/Bromeln [Uti-Stat Liquid] 30 ml PO BID 10/21/18 Sodium Phosphate/Na Biphos [Fleet Adult Rectal Enema -] 1 applic RC PRN PRN Review of Systems Unable to obtain ROS, reason: As per HPI Vital Signs: Vital Signs Temperature 98.5 F 10/22/18 06:00 Pulse Rate 101 H 10/22/18 06:00 Respiratory Rate 20 10/22/18 06:00 Blood Pressure 109/63 10/22/18 06:00 O2 Sat by Pulse Oximetry (%) 98 10/21/18 13:48 Constitutional: Yes: No Distress HENT: Yes: WNL Neck: Yes: WNL Respiratory: Yes: CTA Bilaterally Gastrointestinal: Yes: Soft Cardiovascular: Yes: Regular Rate and Rhythm (NL S1S2 No MRHG) Extremities: Yes: WNL Edema: No Neurological: Yes: Alert (Non verbal Weakness) - Other Data Labs, Other Data: CBC, BMP 10/22/18 07:00 10/22/18 07:00 INR, PTT INR 1.08 (0.83-1.09) 10/22/18 07:00 Troponin, BNP 10/21/18 10/22/18 21:46 07:00 Troponin I < 0.02 B-Natriuretic Peptide 2143.7 H Troponin, BNP 10/21/18 10/22/18 21:46 07:00 Troponin I < 0.02 B-Natriuretic Peptide 2143.7 H Assessment/Plan 68 year old female with MS and a neurogenic bladder d/o (s/p suprapubic catheter), anemia, recurrent drug resistant UTIs, dysphagia, hypothyroidism, presented from [facility] with lethargy/AMS, hypertension and tachycardia today. + MRSA in urine noted. EKG NSR at 99 BPM with normal intervals, normal axis, and NSSTTW changes. Sinus tachycardia This is a reactive tachycardia secondary to infection Would not favor artificially slowing the tachycardia with Beta Guevara Rather continue to treat the underlying cause with antibiotics and supportive care
[2018-10-22] MEDS: FLUCONAZOLE 200 MG/D5W 100 ML IVPB SCH (15:57)
[2018-10-22] MEDS: KCL 10 MEQ IVPB 10 MEQ/100 ML INFUS.BAG IVPB SCH ×2 (16:41→17:23)
--- NOTE | 2018-10-22 16:54 | PN ---
Progress Note, Physician Chief Complaint: Sepsis Suprapubic Catheter UTI MS History of Present Illness: Previous notes and events reviewed more awake today NAD leaking from suprapubic catheter wbc 24.2 - Current Medication List Current Medications: Active Medications Acetaminophen (Tylenol -) 650 mg PO Q4H PRN PRN Reason: PAIN Last Admin: 10/21/18 18:47 Dose: 650 mg Ascorbic Acid (Vitamin C -) 500 mg PO DAILY [facility] Last Admin: 10/22/18 09:15 Dose: 500 mg Bisacodyl (Dulcolax Suppository -) 10 mg RC DAILY [facility] Last Admin: 10/22/18 09:16 Dose: 10 mg Calcium Carbonate/Cholecalciferol (Os-Mikie 500+D -) 1 tab PO DAILY [facility] Last Admin: 10/22/18 09:15 Dose: 1 tab Cholecalciferol (Vitamin D3 -) 1,000 unit PO DAILY [facility] Last Admin: 10/22/18 09:15 Dose: 1,000 unit Docusate Sodium (Colace -) 100 mg PO HS [facility] Last Admin: 10/21/18 21:14 Dose: 100 mg Enoxaparin Sodium (Lovenox -) 40 mg SQ DAILY [facility] Last Admin: 10/22/18 09:16 Dose: 40 mg Ferrous Sulfate (Feosol -) 325 mg PO DAILY [facility] Last Admin: 10/22/18 09:25 Dose: 325 mg Meropenem 1 gm/ Dextrose 100 mls @ 200 mls/hr IVPB Q8H-IV [facility] Last Admin: 10/22/18 11:26 Dose: 200 mls/hr Vancomycin HCl 750 mg/ (Dextrose) 250 mls @ 166.667 mls/hr IVPB Q12H [facility]; Protocol Last Admin: 10/22/18 09:15 Dose: 166.667 mls/hr Dextrose/Sodium Chloride (D5-1/2ns -) 1,000 mls @ 42 mls/hr IV ASDIR [facility] Last Admin: 10/21/18 18:45 Dose: 42 mls/hr Fluconazole (Diflucan 200 Mg/D5w Premixed Ivpb -) 100 mls @ 100 mls/hr IVPB DAILY [facility] Last Admin: 10/22/18 15:57 Dose: 100 mls/hr Potassium Chloride (Potassium Chloride 10 Meq Premix Ivpb -) 10 meq in 100 mls @ 100 mls/hr IVPB Q60M [facility] Stop: 10/22/18 17:44 Last Admin: 10/22/18 16:41 Dose: 100 mls/hr Lactobacillus Acidophilus (Bacid -) 1 tab PO DAILY [facility] Last Admin: 10/22/18 09:15 Dose: 1 tab Levothyroxine Sodium (Synthroid -) 100 mcg PO 0700 [facility] Last Admin: 10/22/18 06:03 Dose: 100 mcg Multivitamins/Minerals/Vitamin C (Tab-A-Vit -) 1 tab PO DAILY [facility] Last Admin: 10/22/18 09:15 Dose: 1 tab Non-Formulary Medication (Interferon Beta-1a [Avonex]) 30 mcg IM WEEKLY [facility] Pantoprazole Sodium (Protonix -) 40 mg PO DAILY [facility] Last Admin: 10/22/18 09:15 Dose: 40 mg Polyethylene Glycol (Miralax (For Daily Use) -) 17 gm PO BID [facility] Last Admin: 10/22/18 09:16 Dose: 17 grams Senna (Senna -) 2 tab PO HS [facility] Last Admin: 10/21/18 21:14 Dose: 2 tab Sodium Phosphate (Fleet Adult Rectal Enema -) 133 ml RC PRN PRN PRN Reason: CONSTIPATION Tamoxifen Citrate (Tamoxifen Citrate) 20 mg PO DAILY [facility] Last Admin: 10/22/18 09:16 Dose: 20 mg Zinc Sulfate (Orazinc -) 220 mg PO BID [facility] Last Admin: 10/22/18 09:15 Dose: 220 mg - Objective Vital Signs: Vital Signs Temperature 97.8 F 10/22/18 14:00 Pulse Rate 101 H 10/22/18 14:00 Respiratory Rate 20 10/22/18 14:00 Blood Pressure 131/71 10/22/18 14:00 O2 Sat by Pulse Oximetry (%) 98 10/22/18 09:00 Constitutional: Yes: No Distress, Calm Eyes: Yes: Conjunctiva Clear HENT: Yes: Atraumatic Cardiovascular: Yes: Tachycardia Respiratory: Yes: Regular, CTA Bilaterally Gastrointestinal: Yes: Normal Bowel Sounds, Soft Genitourinary: Yes: Other (suprapubic catheter) Musculoskeletal: Yes: Muscle Weakness Extremities: Yes: WNL Edema: No Neurological: Yes: Alert, Pre-Existing Deficit Psychiatric: Yes: Alert Labs: CBC, BMP 10/22/18 07:00 10/22/18 07:00 INR, PTT INR 1.08 (0.83-1.09) 10/22/18 07:00 Microbiology 10/21/18 10:00 Blood - Peripheral Venous Blood Culture - Preliminary NO GROWTH OBTAINED AFTER 24 HOURS, INCUBATION TO CONTINUE FOR 4 DAYS. 10/21/18 10:00 Blood - Peripheral Venous Blood Culture - Preliminary NO GROWTH OBTAINED AFTER 24 HOURS, INCUBATION TO CONTINUE FOR 4 DAYS. 10/21/18 10:45 Urine - Urine Clean Catch Urine Culture - Final Yeast Like Organism Problem List - Problems (1) Sepsis Assessment/Plan: -UC yeast like organism -BC neg -CXR shows left base aerated with persistent residual infiltrate or atelectasis -ID on board -Meropenem and Vancomycin -Diflucan -WBC 24.2 -afebrile -tylenol IVPB for temp >100F -IV hydration Code(s): A41.9 - SEPSIS, UNSPECIFIED ORGANISM (2) 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 Assessment/Plan: -fall precaution -Avonex Code(s): G35 - MULTIPLE SCLEROSIS; R53.2 - FUNCTIONAL QUADRIPLEGIA (3) GERD (gastroesophageal reflux disease) Assessment/Plan: -Pantoprazole Code(s): K21.9 - GASTRO-ESOPHAGEAL REFLUX DISEASE WITHOUT ESOPHAGITIS Qualifiers: Esophagitis presence: without esophagitis Qualified Code(s): K21.9 - Gastro -esophageal reflux disease without esophagitis (4) Hypothyroid Assessment/Plan: -Levothyroxine Code(s): E03.9 - HYPOTHYROIDISM, UNSPECIFIED (5) Neurogenic bladder Assessment/Plan: -suprapubic catheter -UC yeast like organism -Urology consult for leaking suprapubic catheter Code(s): N31.9 - NEUROMUSCULAR DYSFUNCTION OF BLADDER, UNSPECIFIED (6) UTI (urinary tract infection) due to urinary indwelling catheter Assessment/Plan: -UC yeast like organism -ID on board -Merepenem, Vancomycin, Diflucan -WBC 24.2 -afebrile Code(s): T83.51XA - ; N39.0 - URINARY TRACT INFECTION, SITE NOT SPECIFIED Assessment/Plan see problem list dvt ppx
[2018-10-22] MEDS: DOCUSATE SODIUM 100 MG CAPSULE (FP) PO SCH (21:56)
[2018-10-22] MEDS: SENNOSIDES 8.6MG TABLET (FP) PO SCH (21:57)
[2018-10-23] MEDS ORDERED: MEROPENEM 1 GM VIAL (RESTRICTED TO ID) IVPB ONE ×3 (02:01→17:03)
[2018-10-23] MEDS ORDERED: DEXTROSE 5%-WATER 100 ML IVPB ONE ×3 (02:02→17:04)
[2018-10-23] MEDS: MEROPENEM 1 GM in DEXTROSE 5%-WATER 100 ML IVPB SCH ×3 (02:07→19:31)
[2018-10-23] MEDS: DEXTROSE 5%-0.45% SALINE 1,000 ML IV SCH (03:08)
[2018-10-23] MEDS: LEVOTHYROXINE NA 100 MCG TABLET (FP) PO SCH (06:16)
[2018-10-23 08:22] LABS: BASO % 0.1 % (0-2.0); EOS % 0.2 % (0-4.5); HEMATOCRIT 29.5 % (32.4-45.2); HEMOGLOBIN 9.6 GM/dL (10.7-15.3); LYMPH % 14.5 % (8-40); MCH 27.7 pg (25.7-33.7); MCHC 32.6 g/dl (32.0-36.0); MEAN CELL VOLUME 84.9 fl (80-96); MEAN PLT VOLUME 8.8 fl (7.5-11.1); MONO % 2.7 % (3.8-10.2); NEUT % 82.5 % (42.8-82.8); PLATELET COUNT 201 K/MM3 (134-434); RBC 3.48 M/mm3 (3.60-5.2); RDW 16.2 % (11.6-15.6)
[2018-10-23 08:35] LABS: ALBUMIN 2.3 g/dl (3.4-5.0); BILIRUBIN,TOTAL 0.3 mg/dL (0.2-1); CALCIUM 8.5 mg/dL (8.5-10.1); CREATININE 0.2 mg/dL (0.55-1.3); POTASSIUM 3.1 mmol/L (3.5-5.1); TOT PROT 6.3 g/dl (6.4-8.2)
[2018-10-23] MEDS: LACTOBACILLUS ACIDOPHILUS 1 TABLET PO SCH (10:24)
[2018-10-23] MEDS: POLYETHYLENE GLYCOL 3350 119 GM BTL PO SCH ×2 (10:24→21:26)
[2018-10-23] MEDS: FERROUS SO4 325 MG TABLET (FP) PO SCH (10:24)
[2018-10-23] MEDS: CALCIUM 500MG/VIT-D 200 UNITS COMBO TABLET (FP) PO SCH (10:25)
[2018-10-23] MEDS: PANTOPRAZOLE 40 MG TABLET (FP) PO SCH (10:25)
[2018-10-23] MEDS: MULTIVITAMINS (DAILY MVI) TABLET (FP) PO SCH (10:25)
[2018-10-23] MEDS: ZINC SULFATE 220 MG CAPSULE (FP) PO SCH ×2 (10:25→21:25)
[2018-10-23] MEDS: ASCORBIC ACID 500 MG TABLET (FP) PO SCH (10:26)
[2018-10-23] MEDS: CHOLECALCIFEROL (VIT D3) 1,000 UNIT (25 MCG) TABLET PO SCH (10:26)
[2018-10-23] MEDS: TAMOXIFEN CITRATE 10 MG TABLET PO SCH (10:26)
[2018-10-23] MEDS: BISACODYL 10 MG SUPP.RECT RC SCH (10:28)
[2018-10-23] MEDS: ENOXAPARIN NA (PORCINE) 40 MG/0.4 ML DISP.SYRIN SQ SCH (10:29)
[2018-10-23] MEDS: FLUCONAZOLE 200 MG/D5W 100 ML IVPB SCH (11:08)
[2018-10-23] MEDS ORDERED: PT OWN MED DRAWER 7, Y5N ONE (11:13)
--- NOTE | 2018-10-23 11:20 | PN ---
Progress Note, Physician History of Present Illness: stable still looks sick - Current Medication List Current Medications: Active Medications Acetaminophen (Tylenol -) 650 mg PO Q4H PRN PRN Reason: PAIN Last Admin: 10/21/18 18:47 Dose: 650 mg Ascorbic Acid (Vitamin C -) 500 mg PO DAILY [facility] Last Admin: 10/23/18 10:26 Dose: 500 mg Bisacodyl (Dulcolax Suppository -) 10 mg RC DAILY [facility] Last Admin: 10/23/18 10:28 Dose: 10 mg Calcium Carbonate/Cholecalciferol (Os-Mikie 500+D -) 1 tab PO DAILY [facility] Last Admin: 10/23/18 10:25 Dose: 1 tab Cholecalciferol (Vitamin D3 -) 1,000 unit PO DAILY [facility] Last Admin: 10/23/18 10:26 Dose: 1,000 unit Docusate Sodium (Colace -) 100 mg PO HS [facility] Last Admin: 10/22/18 21:56 Dose: 100 mg Enoxaparin Sodium (Lovenox -) 40 mg SQ DAILY [facility] Last Admin: 10/23/18 10:29 Dose: 40 mg Ferrous Sulfate (Feosol -) 325 mg PO DAILY [facility] Last Admin: 10/23/18 10:24 Dose: 325 mg Meropenem 1 gm/ Dextrose 100 mls @ 200 mls/hr IVPB Q8H-IV [facility] Last Admin: 10/23/18 10:27 Dose: 200 mls/hr Vancomycin HCl 750 mg/ (Dextrose) 250 mls @ 166.667 mls/hr IVPB Q12H [facility]; Protocol Last Admin: 10/22/18 21:57 Dose: 166.667 mls/hr Dextrose/Sodium Chloride (D5-1/2ns -) 1,000 mls @ 42 mls/hr IV ASDIR [facility] Last Admin: 10/23/18 03:08 Dose: 42 mls/hr Fluconazole (Diflucan 200 Mg/D5w Premixed Ivpb -) 100 mls @ 100 mls/hr IVPB DAILY [facility] Last Admin: 10/23/18 11:08 Dose: 100 mls/hr Lactobacillus Acidophilus (Bacid -) 1 tab PO DAILY [facility] Last Admin: 10/23/18 10:24 Dose: 1 tab Levothyroxine Sodium (Synthroid -) 100 mcg PO 0700 [facility] Last Admin: 10/23/18 06:16 Dose: 100 mcg Multivitamins/Minerals/Vitamin C (Tab-A-Vit -) 1 tab PO DAILY [facility] Last Admin: 10/23/18 10:25 Dose: 1 tab Non-Formulary Medication (Interferon Beta-1a [Avonex]) 30 mcg IM WEEKLY [facility] Pantoprazole Sodium (Protonix -) 40 mg PO DAILY [facility] Last Admin: 10/23/18 10:25 Dose: 40 mg Polyethylene Glycol (Miralax (For Daily Use) -) 17 gm PO BID [facility] Last Admin: 10/23/18 10:24 Dose: 17 grams Senna (Senna -) 2 tab PO HS [facility] Last Admin: 10/22/18 21:57 Dose: 2 tab Sodium Phosphate (Fleet Adult Rectal Enema -) 133 ml RC PRN PRN PRN Reason: CONSTIPATION Tamoxifen Citrate (Tamoxifen Citrate) 20 mg PO DAILY [facility] Last Admin: 10/23/18 10:26 Dose: 20 mg Zinc Sulfate (Orazinc -) 220 mg PO BID [facility] Last Admin: 10/23/18 10:25 Dose: 220 mg - Objective Vital Signs: Vital Signs Temperature 99.3 F 10/23/18 06:00 Pulse Rate 87 10/23/18 06:00 Respiratory Rate 18 10/23/18 06:00 Blood Pressure 139/68 10/23/18 06:00 O2 Sat by Pulse Oximetry (%) 99 10/22/18 21:00 Constitutional: Yes: No Distress, Calm Cardiovascular: Yes: S1, S2 Respiratory: Yes: Regular, CTA Bilaterally Gastrointestinal: Yes: Normal Bowel Sounds, Soft Genitourinary: Yes: Chopra Present Musculoskeletal: Yes: Other Extremities: Yes: Other (contracted) Neurological: Yes: Alert Psychiatric: Yes: Alert Labs: CBC, BMP 10/23/18 06:30 10/23/18 06:30 INR, PTT INR 1.08 (0.83-1.09) 10/22/18 07:00 Assessment/Plan Problem List - Problems (1) Sepsis Code(s): A41.9 - SEPSIS, UNSPECIFIED ORGANISM (2) UTI (urinary tract infection) due to urinary indwelling catheter Code(s): T83.51XA - ; N39.0 - URINARY TRACT INFECTION, SITE NOT SPECIFIED (3) TANISHA (acute kidney injury) Code(s): N17.9 - ACUTE KIDNEY FAILURE, UNSPECIFIED (4) Breast CA Code(s): C50.919 - MALIGNANT NEOPLASM OF UNSP SITE OF UNSPECIFIED FEMALE BREAST (5) 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 Code(s): G35 - MULTIPLE SCLEROSIS; R53.2 - FUNCTIONAL QUADRIPLEGIA (6) GERD (gastroesophageal reflux disease) Code(s): K21.9 - GASTRO-ESOPHAGEAL REFLUX DISEASE WITHOUT ESOPHAGITIS Qualifiers: Esophagitis presence: without esophagitis Qualified Code(s): K21.9 - Gastro -esophageal reflux disease without esophagitis (7) Hydronephrosis Code(s): N13.30 - UNSPECIFIED HYDRONEPHROSIS Qualifiers: Hydronephrosis type: with renal and ureteral calculous obstruction Qualified Code(s): N13.2 - Hydronephrosis with renal and ureteral calculous obstruction (8) Hypothyroid Code(s): E03.9 - HYPOTHYROIDISM, UNSPECIFIED (9) Nephrolithiasis Code(s): N20.0 - CALCULUS OF KIDNEY (10) Neurogenic bladder Code(s): N31.9 - NEUROMUSCULAR DYSFUNCTION OF BLADDER, UNSPECIFIED Assessment/Plan Complicated UTI Sepsis Leukocytosis Neurogenic bladder s/p SPC MS Dementia wbc decreasing plan stop vanco continue rest of the abx rest as per the team hydration
[2018-10-23] MEDS: VANCOMYCIN 750 MG in DEXTROSE 5%-WATER - 250 ML IVPB SCH (12:15)
[2018-10-23] MEDS ORDERED: DEXTROSE 5%-NORMAL SALINE 1,000 ML IV SCH (16:45)
[2018-10-23] MEDS: KCL 10 MEQ IVPB 10 MEQ/100 ML INFUS.BAG IVPB SCH ×2 (17:23→18:21)
--- NOTE | 2018-10-23 18:12 | PN ---
Progress Note, Physician Chief Complaint: Sepsis Suprapubic Catheter UTI MS History of Present Illness: Previous notes and events reviewed awake NAD leaking from suprapubic catheter wbc 13.0 - Current Medication List Current Medications: Active Medications Acetaminophen (Tylenol -) 650 mg PO Q4H PRN PRN Reason: PAIN Last Admin: 10/21/18 18:47 Dose: 650 mg Ascorbic Acid (Vitamin C -) 500 mg PO DAILY [facility] Last Admin: 10/23/18 10:26 Dose: 500 mg Bisacodyl (Dulcolax Suppository -) 10 mg RC DAILY [facility] Last Admin: 10/23/18 10:28 Dose: 10 mg Calcium Carbonate/Cholecalciferol (Os-Mikie 500+D -) 1 tab PO DAILY [facility] Last Admin: 10/23/18 10:25 Dose: 1 tab Cholecalciferol (Vitamin D3 -) 1,000 unit PO DAILY [facility] Last Admin: 10/23/18 10:26 Dose: 1,000 unit Docusate Sodium (Colace -) 100 mg PO HS [facility] Last Admin: 10/22/18 21:56 Dose: 100 mg Enoxaparin Sodium (Lovenox -) 40 mg SQ DAILY [facility] Last Admin: 10/23/18 10:29 Dose: 40 mg Ferrous Sulfate (Feosol -) 325 mg PO DAILY [facility] Last Admin: 10/23/18 10:24 Dose: 325 mg Meropenem 1 gm/ Dextrose 100 mls @ 200 mls/hr IVPB Q8H-IV [facility] Last Admin: 10/23/18 10:27 Dose: 200 mls/hr Fluconazole (Diflucan 200 Mg/D5w Premixed Ivpb -) 100 mls @ 100 mls/hr IVPB DAILY [facility] Last Admin: 10/23/18 11:08 Dose: 100 mls/hr Potassium Chloride (Potassium Chloride 10 Meq Premix Ivpb -) 10 meq in 100 mls @ 100 mls/hr IVPB Q60M [facility] Stop: 10/23/18 18:29 Last Admin: 10/23/18 17:23 Dose: 100 mls/hr Dextrose/Sodium Chloride (D5-Ns -) 1,000 mls @ 42 mls/hr IV ASDIR [facility] Last Admin: 10/23/18 17:28 Dose: Not Given Lactobacillus Acidophilus (Bacid -) 1 tab PO DAILY [facility] Last Admin: 10/23/18 10:24 Dose: 1 tab Levothyroxine Sodium (Synthroid -) 100 mcg PO 0700 [facility] Last Admin: 10/23/18 06:16 Dose: 100 mcg Multivitamins/Minerals/Vitamin C (Tab-A-Vit -) 1 tab PO DAILY [facility] Last Admin: 10/23/18 10:25 Dose: 1 tab Non-Formulary Medication (Interferon Beta-1a [Avonex]) 30 mcg IM WEEKLY [facility] Pantoprazole Sodium (Protonix -) 40 mg PO DAILY [facility] Last Admin: 10/23/18 10:25 Dose: 40 mg Polyethylene Glycol (Miralax (For Daily Use) -) 17 gm PO BID [facility] Last Admin: 10/23/18 10:24 Dose: 17 grams Senna (Senna -) 2 tab PO HS [facility] Last Admin: 10/22/18 21:57 Dose: 2 tab Sodium Phosphate (Fleet Adult Rectal Enema -) 133 ml RC PRN PRN PRN Reason: CONSTIPATION Tamoxifen Citrate (Tamoxifen Citrate) 20 mg PO DAILY [facility] Last Admin: 10/23/18 10:26 Dose: 20 mg Zinc Sulfate (Orazinc -) 220 mg PO BID [facility] Last Admin: 10/23/18 10:25 Dose: 220 mg - Objective Vital Signs: Vital Signs Temperature 99.5 F 10/23/18 16:30 Pulse Rate 92 H 10/23/18 08:20 Respiratory Rate 18 10/23/18 08:20 Blood Pressure 141/67 10/23/18 08:20 O2 Sat by Pulse Oximetry (%) 99 10/22/18 21:00 Constitutional: Yes: No Distress, Calm Eyes: Yes: Conjunctiva Clear HENT: Yes: Atraumatic Cardiovascular: Yes: Tachycardia Respiratory: Yes: Regular, Diminished, On Nasal O2 Gastrointestinal: Yes: Normal Bowel Sounds, Soft Genitourinary: Yes: Other (suprapubic catheter) Musculoskeletal: Yes: Muscle Weakness Extremities: Yes: WNL Edema: No Neurological: Yes: Alert, Oriented Psychiatric: Yes: Alert, Oriented Labs: CBC, BMP 10/23/18 06:30 10/23/18 06:30 INR, PTT INR 1.08 (0.83-1.09) 10/22/18 07:00 Microbiology 10/21/18 10:00 Blood - Peripheral Venous Blood Culture - Preliminary NO GROWTH OBTAINED AFTER 48 HOURS, INCUBATION TO CONTINUE FOR 3 DAYS. 10/21/18 10:00 Blood - Peripheral Venous Blood Culture - Preliminary NO GROWTH OBTAINED AFTER 48 HOURS, INCUBATION TO CONTINUE FOR 3 DAYS. 10/21/18 10:45 Urine - Urine Clean Catch Urine Culture - Final Yeast Like Organism Problem List - Problems (1) Sepsis Assessment/Plan: -UC yeast like organism -BC neg -CXR shows left base aerated with persistent residual infiltrate or atelectasis -ID on board -Meropenem -Diflucan -WBC 13.0 -afebrile -tylenol IVPB for temp >100F -IV hydration Code(s): A41.9 - SEPSIS, UNSPECIFIED ORGANISM (2) 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 Assessment/Plan: -fall precaution -Avonex Code(s): G35 - MULTIPLE SCLEROSIS; R53.2 - FUNCTIONAL QUADRIPLEGIA (3) GERD (gastroesophageal reflux disease) Assessment/Plan: -Pantoprazole Code(s): K21.9 - GASTRO-ESOPHAGEAL REFLUX DISEASE WITHOUT ESOPHAGITIS Qualifiers: Esophagitis presence: without esophagitis Qualified Code(s): K21.9 - Gastro -esophageal reflux disease without esophagitis (4) Hypothyroid Assessment/Plan: -Levothyroxine Code(s): E03.9 - HYPOTHYROIDISM, UNSPECIFIED (5) Neurogenic bladder Assessment/Plan: -suprapubic catheter -UC yeast like organism -Urology consult for leaking suprapubic catheter Code(s): N31.9 - NEUROMUSCULAR DYSFUNCTION OF BLADDER, UNSPECIFIED (6) UTI (urinary tract infection) due to urinary indwelling catheter Assessment/Plan: -UC yeast like organism -ID on board -Merepenem and Diflucan -WBC 13.0 -afebrile Code(s): T83.51XA - ; N39.0 - URINARY TRACT INFECTION, SITE NOT SPECIFIED Assessment/Plan see problem list dvt ppx
[2018-10-23] MEDS: SENNOSIDES 8.6MG TABLET (FP) PO SCH (21:25)
[2018-10-23] MEDS: DOCUSATE SODIUM 100 MG CAPSULE (FP) PO SCH (21:25)
[2018-10-23] MEDS: ACETAMINOPHEN 325 MG TABLET (FP) PO PRN (22:43)
--- NOTE | 2018-10-24 00:28 | CONS ---
DATE OF CONSULTATION: DATE OF DICTATION: 10/23/2018 Patient is a 68-year-old female with history of multiple sclerosis, paraplegia, and neurogenic bladder. She has undergone a suprapubic tube several years ago. She has been having bouts of recurrent urosepsis as well as drug-resistant urinary tract infections. She does have a history of anemia. She also complains of dysphagia. She has been growing MRSA in her urine. At the detention, she had fever as well as altered mental status as well as lethargy. The patient is unable to give an adequate history, therefore the hospital and detention records were studied. She is admitted to the hospital with urosepsis. She was recently admitted on September 30, with the same. She does have a left upper quadrant PICC line. She also has a suprapubic tube. ALLERGIES: There are no known allergies. MEDICATIONS: She presently is on multiple medications includin. Vitamin D. 2. Tylenol. 3. Synthroid. 4. Tamoxifen. 5. Dulcolax. 6. Bacid. 7. Vitamin C. 8. Enoxaparin. Her admission diagnosis was urinary sepsis secondary to a urinary catheter. The patient has undergone culture results and the urine culture grew out yeast-like organisms. The blood cultures revealed no growth after 48 hours. Presently, her temperature max is 101.6, blood pressure 148/70, respirations were 20. Her white count is 13,000, hemoglobin is 9.5, hematocrit 29.5. Her platelets were 201. Her chemistries revealed a BUN of 9 and creatinine of 0.2, respectively. Her random glucose was 166. IMPRESSION: Recurrent urosepsis in a patient with neurogenic bladder and suprapubic tube. RECOMMENDATIONS: Will recommend an upper tract study including a renal ultrasound. Will also recommend exchanging the patient's suprapubic catheter. Will follow with you. Ozzy [id number]
[2018-10-24] MEDS ORDERED: MEROPENEM 1 GM VIAL (RESTRICTED TO ID) IVPB ONE ×3 (00:32→19:30)
[2018-10-24] MEDS ORDERED: DEXTROSE 5%-WATER 100 ML IVPB ONE ×3 (00:32→19:30)
[2018-10-24] MEDS: MEROPENEM 1 GM in DEXTROSE 5%-WATER 100 ML IVPB SCH ×3 (02:25→19:33)
[2018-10-24] MEDS: LEVOTHYROXINE NA 100 MCG TABLET (FP) PO SCH (06:07)
--- NOTE | 2018-10-24 08:04 | PN ---
Progress Note, Physician Chief Complaint: EVENTS AND NOTES REVIEWED ASLEEP COMFORTABLE - Current Medication List Current Medications: Active Medications Acetaminophen (Tylenol -) 650 mg PO Q4H PRN PRN Reason: FEVER Last Admin: 10/23/18 22:43 Dose: 650 mg Ascorbic Acid (Vitamin C -) 500 mg PO DAILY [facility] Last Admin: 10/23/18 10:26 Dose: 500 mg Bisacodyl (Dulcolax Suppository -) 10 mg RC DAILY [facility] Last Admin: 10/23/18 10:28 Dose: 10 mg Calcium Carbonate/Cholecalciferol (Os-Mikie 500+D -) 1 tab PO DAILY [facility] Last Admin: 10/23/18 10:25 Dose: 1 tab Cholecalciferol (Vitamin D3 -) 1,000 unit PO DAILY [facility] Last Admin: 10/23/18 10:26 Dose: 1,000 unit Docusate Sodium (Colace -) 100 mg PO HS [facility] Last Admin: 10/23/18 21:25 Dose: 100 mg Enoxaparin Sodium (Lovenox -) 40 mg SQ DAILY [facility] Last Admin: 10/23/18 10:29 Dose: 40 mg Ferrous Sulfate (Feosol -) 325 mg PO DAILY [facility] Last Admin: 10/23/18 10:24 Dose: 325 mg Meropenem 1 gm/ Dextrose 100 mls @ 200 mls/hr IVPB Q8H-IV [facility] Last Admin: 10/24/18 02:25 Dose: 200 mls/hr Fluconazole (Diflucan 200 Mg/D5w Premixed Ivpb -) 100 mls @ 100 mls/hr IVPB DAILY [facility] Last Admin: 10/23/18 11:08 Dose: 100 mls/hr Lactobacillus Acidophilus (Bacid -) 1 tab PO DAILY [facility] Last Admin: 10/23/18 10:24 Dose: 1 tab Levothyroxine Sodium (Synthroid -) 100 mcg PO 0700 [facility] Last Admin: 10/24/18 06:07 Dose: 100 mcg Multivitamins/Minerals/Vitamin C (Tab-A-Vit -) 1 tab PO DAILY [facility] Last Admin: 10/23/18 10:25 Dose: 1 tab Non-Formulary Medication (Interferon Beta-1a [Avonex]) 30 mcg IM WEEKLY [facility] Pantoprazole Sodium (Protonix -) 40 mg PO DAILY [facility] Last Admin: 10/23/18 10:25 Dose: 40 mg Polyethylene Glycol (Miralax (For Daily Use) -) 17 gm PO BID [facility] Last Admin: 10/23/18 21:26 Dose: Not Given Senna (Senna -) 2 tab PO HS [facility] Last Admin: 10/23/18 21:25 Dose: 2 tab Sodium Phosphate (Fleet Adult Rectal Enema -) 133 ml RC PRN PRN PRN Reason: CONSTIPATION Tamoxifen Citrate (Tamoxifen Citrate) 20 mg PO DAILY [facility] Last Admin: 10/23/18 10:26 Dose: 20 mg Zinc Sulfate (Orazinc -) 220 mg PO BID [facility] Last Admin: 10/23/18 21:25 Dose: 220 mg - Objective Vital Signs: Vital Signs Temperature 99.1 F 10/24/18 06:00 Pulse Rate 90 10/24/18 06:00 Respiratory Rate 20 10/24/18 06:00 Blood Pressure 128/75 10/24/18 06:00 O2 Sat by Pulse Oximetry (%) 99 10/23/18 21:00 Constitutional: Yes: Mild Distress Cardiovascular: Yes: Regular Rate and Rhythm Respiratory: Yes: On Nasal O2, Other Gastrointestinal: Yes: Soft Genitourinary: Yes: Chopra Present, Incontinence Musculoskeletal: Yes: Muscle Weakness Labs: CBC, BMP 10/23/18 06:30 10/23/18 06:30 INR, PTT INR 1.08 (0.83-1.09) 10/22/18 07:00 Problem List - Problems (1) Sepsis Code(s): A41.9 - SEPSIS, UNSPECIFIED ORGANISM (2) UTI (urinary tract infection) due to urinary indwelling catheter Code(s): T83.51XA - ; N39.0 - URINARY TRACT INFECTION, SITE NOT SPECIFIED (3) TANISHA (acute kidney injury) Code(s): N17.9 - ACUTE KIDNEY FAILURE, UNSPECIFIED (4) Abnormal CT scan Code(s): R93.8 - ABNORMAL FINDINGS ON DIAGNOSTIC IMAGING OF APOORVA * DO NOT USE * (5) Anemia Code(s): D64.9 - ANEMIA, UNSPECIFIED (6) Breast CA Code(s): C50.919 - MALIGNANT NEOPLASM OF UNSP SITE OF UNSPECIFIED FEMALE BREAST (7) Decubitus ulcer Code(s): L89.90 - PRESSURE ULCER OF UNSPECIFIED SITE, UNSPECIFIED STAGE Qualifiers: Qualified Code(s): L89.93 - Pressure ulcer of unspecified site, stage 3 (8) 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 Code(s): G35 - MULTIPLE SCLEROSIS; R53.2 - FUNCTIONAL QUADRIPLEGIA Assessment/Plan IV ABX PER ID REPLETE KCL WOUND CARE SACRAL ULCERS OTHER DECUBIT INCREASE NUTRITION STATUS MS NO ACUTE CHANGE AT THIS TIME CHECK CULTURES AND SENS.
[2018-10-24 08:20] LABS: MCH 27.4 pg (25.7-33.7); MCHC 32.3 g/dl (32.0-36.0); MEAN CELL VOLUME 84.9 fl (80-96); PLATELET COUNT 204 K/MM3 (134-434); RBC 3.65 M/mm3 (3.60-5.2); RDW 16.1 % (11.6-15.6); WHITE BLOOD COUNT 15.6 K/mm3 (4.0-10.0)
[2018-10-24 08:49] LABS: ALBUMIN 2.2 g/dl (3.4-5.0); BILIRUBIN,TOTAL 0.5 mg/dL (0.2-1); CALCIUM 8.5 mg/dL (8.5-10.1); CREATININE 0.2 mg/dL (0.55-1.3); TOT PROT 6.4 g/dl (6.4-8.2)
[2018-10-24] MEDS ORDERED: PT OWN MED DRAWER 7, Y5N ONE ×2 (09:43→18:17)
[2018-10-24] MEDS: LACTOBACILLUS ACIDOPHILUS 1 TABLET PO SCH (09:54)
[2018-10-24] MEDS: FERROUS SO4 325 MG TABLET (FP) PO SCH (09:54)
[2018-10-24] MEDS: POLYETHYLENE GLYCOL 3350 119 GM BTL PO SCH ×2 (09:54→22:06)
[2018-10-24] MEDS: MULTIVITAMINS (DAILY MVI) TABLET (FP) PO SCH (09:55)
[2018-10-24] MEDS: ZINC SULFATE 220 MG CAPSULE (FP) PO SCH ×2 (09:55→22:10)
[2018-10-24] MEDS: CALCIUM 500MG/VIT-D 200 UNITS COMBO TABLET (FP) PO SCH (09:55)
[2018-10-24] MEDS: PANTOPRAZOLE 40 MG TABLET (FP) PO SCH (09:55)
[2018-10-24] MEDS: TAMOXIFEN CITRATE 10 MG TABLET PO SCH (09:56)
[2018-10-24] MEDS: ASCORBIC ACID 500 MG TABLET (FP) PO SCH (09:57)
[2018-10-24] MEDS: CHOLECALCIFEROL (VIT D3) 1,000 UNIT (25 MCG) TABLET PO SCH (09:57)
[2018-10-24] MEDS: BISACODYL 10 MG SUPP.RECT RC SCH (09:59)
[2018-10-24] MEDS: ENOXAPARIN NA (PORCINE) 40 MG/0.4 ML DISP.SYRIN SQ SCH (09:59)
[2018-10-24] MEDS: FLUCONAZOLE 200 MG/D5W 100 ML IVPB SCH (10:39)
--- NOTE | 2018-10-24 11:46 | PN ---
Progress Note, Physician - Current Medication List Current Medications: Active Medications Acetaminophen (Tylenol -) 650 mg PO Q4H PRN PRN Reason: FEVER Last Admin: 10/23/18 22:43 Dose: 650 mg Ascorbic Acid (Vitamin C -) 500 mg PO DAILY [facility] Last Admin: 10/24/18 09:57 Dose: 500 mg Bisacodyl (Dulcolax Suppository -) 10 mg RC DAILY [facility] Last Admin: 10/24/18 09:59 Dose: 10 mg Calcium Carbonate/Cholecalciferol (Os-Mikie 500+D -) 1 tab PO DAILY [facility] Last Admin: 10/24/18 09:55 Dose: 1 tab Cholecalciferol (Vitamin D3 -) 1,000 unit PO DAILY [facility] Last Admin: 10/24/18 09:57 Dose: 1,000 unit Docusate Sodium (Colace -) 100 mg PO HS [facility] Last Admin: 10/23/18 21:25 Dose: 100 mg Enoxaparin Sodium (Lovenox -) 40 mg SQ DAILY [facility] Last Admin: 10/24/18 09:59 Dose: 40 mg Ferrous Sulfate (Feosol -) 325 mg PO DAILY [facility] Last Admin: 10/24/18 09:54 Dose: 325 mg Meropenem 1 gm/ Dextrose 100 mls @ 200 mls/hr IVPB Q8H-IV [facility] Last Admin: 10/24/18 09:57 Dose: 200 mls/hr Fluconazole (Diflucan 200 Mg/D5w Premixed Ivpb -) 100 mls @ 100 mls/hr IVPB DAILY [facility] Last Admin: 10/24/18 10:39 Dose: 100 mls/hr Lactobacillus Acidophilus (Bacid -) 1 tab PO DAILY [facility] Last Admin: 10/24/18 09:54 Dose: 1 tab Levothyroxine Sodium (Synthroid -) 100 mcg PO 0700 [facility] Last Admin: 10/24/18 06:07 Dose: 100 mcg Multivitamins/Minerals/Vitamin C (Tab-A-Vit -) 1 tab PO DAILY [facility] Last Admin: 10/24/18 09:55 Dose: 1 tab Non-Formulary Medication (Interferon Beta-1a [Avonex]) 30 mcg IM WEEKLY [facility] Pantoprazole Sodium (Protonix -) 40 mg PO DAILY [facility] Last Admin: 10/24/18 09:55 Dose: 40 mg Polyethylene Glycol (Miralax (For Daily Use) -) 17 gm PO BID [facility] Last Admin: 10/24/18 09:54 Dose: 17 grams Senna (Senna -) 2 tab PO HS [facility] Last Admin: 10/23/18 21:25 Dose: 2 tab Sodium Phosphate (Fleet Adult Rectal Enema -) 133 ml RC PRN PRN PRN Reason: CONSTIPATION Tamoxifen Citrate (Tamoxifen Citrate) 20 mg PO DAILY [facility] Last Admin: 10/24/18 09:56 Dose: 20 mg Zinc Sulfate (Orazinc -) 220 mg PO BID [facility] Last Admin: 10/24/18 09:55 Dose: 220 mg - Objective Vital Signs: Vital Signs Temperature 98.8 F 10/24/18 09:50 Pulse Rate 94 H 10/24/18 09:50 Respiratory Rate 20 10/24/18 09:50 Blood Pressure 120/80 10/24/18 09:50 O2 Sat by Pulse Oximetry (%) 99 10/23/18 21:00 Labs: CBC, BMP 10/24/18 07:20 10/24/18 07:20 INR, PTT INR 1.08 (0.83-1.09) 10/22/18 07:00
[2018-10-24] MEDS: KCL 10 MEQ IVPB 10 MEQ/100 ML INFUS.BAG IVPB SCH ×3 (16:10→18:24)
--- NOTE | 2018-10-24 17:59 | CONSULT ---
Admitting History and Physical - Admission Chief Complaint: Reduced PO intake. History Source: Medical Record Limitations to Obtaining History: Unresponsive - Past Medical History [employer]: Yes: Dementia (Pt. nonverbal except for "hello" response, when greeted.), Multiple Sclerosis Gastrointestinal: Yes: GERD Renal/: Yes: Neurogenic Bladder, Renal Calculi, UTI ...: No Heme/Onc: No: Anemia, B12 Deficiency, Bleeding Disorder, Cancer, Current Chemotherapy, Current Radiation Therapy, Hemochromatosis, Hypercoaguable State, Myeloproliferative Synd, Sickle Cell Disease, Sickle Cell Trait, Thrombocytopenia, Other Infectious Disease: Yes: MRSA Rheumatology: Yes: Other (multiple sclerosis) Endocrine: Yes: Hypothyroidism - Past Surgical History Past Surgical History: Yes: Mastectomy - Smoking History Smoking history: Unknown if ever smoked Have you smoked in the past 12 months: No Aproximately how many cigarettes per day: 0 - Alcohol/Substance Use Hx Alcohol Use: No History of Substance Use: reports: None - Social History ADL: Support Services History of Recent Travel: No History - Admission Reason For Visit: UTI, SEPSIS - General Mental Status: Flat Affect (Pt. with blank stare. Unresponsive to verbal, gestural or tactile stimuli.) Attention: Unresponsive Ability to Follow Directions: Poor Head/Neck Control: Impaired - Hearing Hearing: Normal Hearing Aide: No With Patient: No Speech Evaluation - Communication Primary Language: MALIAN Communication: Yes: Non-Communicable Oral Expression Ability: Yes: Severe Impairment, Non-Verbal - Speech Production Able to Make Needs Known: Yes: Severely Impaired (Receptive and Expressive communication profoundly impaired. Pt. nonverbal and noresponsive, is complete care, with all wants/needs anticipated by Caregivers.) - Language/Auditory Comprehension Observation: Able to respond to yes/no queries: No, Yes/No Confusion: No, Comprehends Conversational Speech: No - Swallow Evaluation/Bedside Assessment Current Nutritional Intake: Dysphagia Pureed, Panther Burn Textured Liquids Tracheostomy Present: No Patient on Ventilator: No Facial Symmetry at Rest: Symmetrical Facial Symmetry on Retraction: Symmetrical Laryngeal Elevation: Impaired (Based on limted PO trials, reduced laryngeal elevation noted.) Laryngeal Movement: Reduced Excursion Needs Assistance: Yes Rate of Intake: Slow/Holding (Prolonged oral preparatory phase as Pt. noted to hold bolus. Did not respond to verbal requests to swallow.) Bolus Size: Small Chewing: Impaired Oral Prep Time: Increased A-P Transit: Impaired Timing of Swallow: Delayed Coughing/Throat Clear: No Change in Voice: No Recommendations - Speech Evaluation, Impression/Plan Impression: Receptive and Expressive language severly impaired. Pt. is nonverbal and nonresponsive. Occasional verbalization noted, "hello". Not a viable candidate for Speech therapy intervention at this time. - Disposition Discharge to: To be Determined - Dysphagia Impressions/Plan Swallowing Skills: Impaired (Pt. presents with compromised menatation, is nonverbal and non-interactive. Pt. also with oropharyngeal Dysphagia characterized by increased oral preparation of bolus, delayed swallow trigger and reduced laryngeal elevation. Pt. also with poor PO intake at < 75% of her meals. Congestion noted on most recent CXR. WBC elevated but appears to be trending downward. Aspiration cannot be ruled out at bedside.) Dysphagia Impressions: Severe Impairment, Risk of Aspiration Dysphagia Treatment Plan: Small Bites, Elevate HOB during feed Recommendations: Modified Barium Swallow (Objective assessment of swallow function is recommended, as aspiration cannot be ruled out at bedside.)
[2018-10-24] MEDS: SENNOSIDES 8.6MG TABLET (FP) PO SCH (22:06)
[2018-10-24] MEDS: DOCUSATE SODIUM 100 MG CAPSULE (FP) PO SCH (22:08)
[2018-10-25] MEDS ORDERED: DEXTROSE 5%-WATER 100 ML IVPB ONE ×4 (01:50→17:23)
[2018-10-25] MEDS ORDERED: MEROPENEM 1 GM VIAL (RESTRICTED TO ID) IVPB ONE ×4 (01:50→17:23)
[2018-10-25] MEDS: LEVOTHYROXINE NA 100 MCG TABLET (FP) PO SCH (06:19)
[2018-10-25] MEDS: MEROPENEM 1 GM in DEXTROSE 5%-WATER 100 ML IVPB SCH ×3 (06:25→17:43)
[2018-10-25 07:28] LABS: HEMATOCRIT 32.8 % (32.4-45.2); HEMOGLOBIN 10.7 GM/dL (10.7-15.3); MCH 27.6 pg (25.7-33.7); MCHC 32.5 g/dl (32.0-36.0); MEAN CELL VOLUME 84.8 fl (80-96); PLATELET COUNT 275 K/MM3 (134-434); RBC 3.87 M/mm3 (3.60-5.2); RDW 16.2 % (11.6-15.6)
[2018-10-25 08:25] LABS: CALCIUM 8.8 mg/dL (8.5-10.1); CREATININE 0.3 mg/dL (0.55-1.3); MAGNESIUM 2.3 mg/dL (1.8-2.4)
[2018-10-25] MEDS: ENOXAPARIN NA (PORCINE) 40 MG/0.4 ML DISP.SYRIN SQ SCH (09:39)
[2018-10-25] MEDS: ZINC SULFATE 220 MG CAPSULE (FP) PO SCH ×2 (09:39→21:42)
[2018-10-25] MEDS: TAMOXIFEN CITRATE 10 MG TABLET PO SCH (09:39)
[2018-10-25] MEDS: FERROUS SO4 325 MG TABLET (FP) PO SCH (09:39)
[2018-10-25] MEDS: BISACODYL 10 MG SUPP.RECT RC SCH (09:39)
[2018-10-25] MEDS: MULTIVITAMINS (DAILY MVI) TABLET (FP) PO SCH (09:39)
[2018-10-25] MEDS: LACTOBACILLUS ACIDOPHILUS 1 TABLET PO SCH (09:40)
[2018-10-25] MEDS: CHOLECALCIFEROL (VIT D3) 1,000 UNIT (25 MCG) TABLET PO SCH (09:40)
[2018-10-25] MEDS: FLUCONAZOLE 200 MG/D5W 100 ML IVPB SCH (09:40)
[2018-10-25] MEDS: CALCIUM 500MG/VIT-D 200 UNITS COMBO TABLET (FP) PO SCH (09:40)
[2018-10-25] MEDS: PANTOPRAZOLE 40 MG TABLET (FP) PO SCH (09:40)
[2018-10-25] MEDS: ASCORBIC ACID 500 MG TABLET (FP) PO SCH (09:40)
[2018-10-25] MEDS: POLYETHYLENE GLYCOL 3350 119 GM BTL PO SCH ×2 (09:44→21:43)
--- NOTE | 2018-10-25 11:07 | PN ---
Progress Note, Physician Chief Complaint: EVENTS AND NOTES REVIEWED AWAKE NON-VERBAL FAILED SWALLOW EVAL - Current Medication List Current Medications: Active Medications Acetaminophen (Tylenol -) 650 mg PO Q4H PRN PRN Reason: FEVER Last Admin: 10/23/18 22:43 Dose: 650 mg Ascorbic Acid (Vitamin C -) 500 mg PO DAILY [facility] Last Admin: 10/25/18 09:40 Dose: 500 mg Bisacodyl (Dulcolax Suppository -) 10 mg RC DAILY [facility] Last Admin: 10/25/18 09:39 Dose: 10 mg Calcium Carbonate/Cholecalciferol (Os-Mikie 500+D -) 1 tab PO DAILY [facility] Last Admin: 10/25/18 09:40 Dose: 1 tab Cholecalciferol (Vitamin D3 -) 1,000 unit PO DAILY [facility] Last Admin: 10/25/18 09:40 Dose: 1,000 unit Docusate Sodium (Colace -) 100 mg PO HS [facility] Last Admin: 10/24/18 22:08 Dose: 100 mg Enoxaparin Sodium (Lovenox -) 40 mg SQ DAILY [facility] Last Admin: 10/25/18 09:39 Dose: 40 mg Ferrous Sulfate (Feosol -) 325 mg PO DAILY [facility] Last Admin: 10/25/18 09:39 Dose: 325 mg Meropenem 1 gm/ Dextrose 100 mls @ 200 mls/hr IVPB Q8H-IV [facility] Last Admin: 10/25/18 09:40 Dose: 200 mls/hr Fluconazole (Diflucan 200 Mg/D5w Premixed Ivpb -) 100 mls @ 100 mls/hr IVPB DAILY [facility] Last Admin: 10/25/18 09:40 Dose: 100 mls/hr Potassium Chloride (Potassium Chloride 10 Meq Premix Ivpb -) 10 meq in 100 mls @ 100 mls/hr IVPB Q60M [facility] Stop: 10/25/18 14:14 Lactobacillus Acidophilus (Bacid -) 1 tab PO DAILY [facility] Last Admin: 10/25/18 09:40 Dose: 1 tab Levothyroxine Sodium (Synthroid -) 100 mcg PO 0700 [facility] Last Admin: 10/25/18 06:19 Dose: 100 mcg Multivitamins/Minerals/Vitamin C (Tab-A-Vit -) 1 tab PO DAILY [facility] Last Admin: 10/25/18 09:39 Dose: 1 tab Non-Formulary Medication (Interferon Beta-1a [Avonex]) 30 mcg IM WEEKLY [facility] Pantoprazole Sodium (Protonix -) 40 mg PO DAILY [facility] Last Admin: 10/25/18 09:40 Dose: 40 mg Polyethylene Glycol (Miralax (For Daily Use) -) 17 gm PO BID [facility] Last Admin: 10/25/18 09:44 Dose: 17 grams Senna (Senna -) 2 tab PO HS [facility] Last Admin: 10/24/18 22:06 Dose: 2 tab Sodium Phosphate (Fleet Adult Rectal Enema -) 133 ml RC PRN PRN PRN Reason: CONSTIPATION Tamoxifen Citrate (Tamoxifen Citrate) 20 mg PO DAILY [facility] Last Admin: 10/25/18 09:39 Dose: 20 mg Zinc Sulfate (Orazinc -) 220 mg PO BID [facility] Last Admin: 10/25/18 09:39 Dose: 220 mg - Objective Vital Signs: Vital Signs Temperature 100.8 F H 10/25/18 06:38 Pulse Rate 84 10/25/18 06:38 Respiratory Rate 20 10/25/18 06:38 Blood Pressure 132/78 10/25/18 06:38 O2 Sat by Pulse Oximetry (%) 99 10/23/18 21:00 Constitutional: Yes: Mild Distress Cardiovascular: Yes: Regular Rate and Rhythm Respiratory: Yes: Diminished Gastrointestinal: Yes: Soft, Distention Genitourinary: Yes: Chopra Present Edema: Yes Integumentary: Yes: Pressure Ulcer, Other Wound/Incision: Yes: Dressing Dry and Intact Neurological: Yes: Aphasia, Pre-Existing Deficit Labs: CBC, BMP 10/25/18 06:30 10/25/18 06:30 INR, PTT INR 1.08 (0.83-1.09) 10/22/18 07:00 Problem List - Problems (1) Sepsis Code(s): A41.9 - SEPSIS, UNSPECIFIED ORGANISM (2) UTI (urinary tract infection) due to urinary indwelling catheter Code(s): T83.51XA - ; N39.0 - URINARY TRACT INFECTION, SITE NOT SPECIFIED (3) TANISHA (acute kidney injury) Code(s): N17.9 - ACUTE KIDNEY FAILURE, UNSPECIFIED (4) Abnormal CT scan Code(s): R93.8 - ABNORMAL FINDINGS ON DIAGNOSTIC IMAGING OF APOORVA * DO NOT USE * (5) Anemia Code(s): D64.9 - ANEMIA, UNSPECIFIED (6) Breast CA Code(s): C50.919 - MALIGNANT NEOPLASM OF UNSP SITE OF UNSPECIFIED FEMALE BREAST (7) Decubitus ulcer Code(s): L89.90 - PRESSURE ULCER OF UNSPECIFIED SITE, UNSPECIFIED STAGE Qualifiers: Qualified Code(s): L89.93 - Pressure ulcer of unspecified site, stage 3 (8) 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 Code(s): G35 - MULTIPLE SCLEROSIS; R53.2 - FUNCTIONAL QUADRIPLEGIA (9) Aphasia Code(s): R47.01 - APHASIA (10) Dysphagia Code(s): R13.10 - DYSPHAGIA, UNSPECIFIED Qualifiers: Dysphagia type: oropharyngeal phase Qualified Code(s): R13.12 - Dysphagia, oropharyngeal phase Assessment/Plan IV ABX FOR UROSEPSIS ASPIRATION PNEUMONIA ON ABX AND NEBS DYSPHAGIA PRECAUTIONS REPLETE K[facility] ADVANCE DIRECTIVES NEED TO D/W FAMILY PALLIATIVE CARE CONSULT
--- NOTE | 2018-10-25 11:41 | PN ---
Progress Note, Physician History of Present Illness: patient still not looking good blank stare non engaging non verbal - Current Medication List Current Medications: Active Medications Acetaminophen (Tylenol -) 650 mg PO Q4H PRN PRN Reason: FEVER Last Admin: 10/23/18 22:43 Dose: 650 mg Ascorbic Acid (Vitamin C -) 500 mg PO DAILY [facility] Last Admin: 10/25/18 09:40 Dose: 500 mg Bisacodyl (Dulcolax Suppository -) 10 mg RC DAILY [facility] Last Admin: 10/25/18 09:39 Dose: 10 mg Calcium Carbonate/Cholecalciferol (Os-Mikie 500+D -) 1 tab PO DAILY [facility] Last Admin: 10/25/18 09:40 Dose: 1 tab Cholecalciferol (Vitamin D3 -) 1,000 unit PO DAILY [facility] Last Admin: 10/25/18 09:40 Dose: 1,000 unit Docusate Sodium (Colace -) 100 mg PO HS [facility] Last Admin: 10/24/18 22:08 Dose: 100 mg Enoxaparin Sodium (Lovenox -) 40 mg SQ DAILY [facility] Last Admin: 10/25/18 09:39 Dose: 40 mg Ferrous Sulfate (Feosol -) 325 mg PO DAILY [facility] Last Admin: 10/25/18 09:39 Dose: 325 mg Meropenem 1 gm/ Dextrose 100 mls @ 200 mls/hr IVPB Q8H-IV [facility] Last Admin: 10/25/18 09:40 Dose: 200 mls/hr Fluconazole (Diflucan 200 Mg/D5w Premixed Ivpb -) 100 mls @ 100 mls/hr IVPB DAILY [facility] Last Admin: 10/25/18 09:40 Dose: 100 mls/hr Potassium Chloride (Potassium Chloride 10 Meq Premix Ivpb -) 10 meq in 100 mls @ 100 mls/hr IVPB Q60M [facility] Stop: 10/25/18 14:44 Lactobacillus Acidophilus (Bacid -) 1 tab PO DAILY [facility] Last Admin: 10/25/18 09:40 Dose: 1 tab Levothyroxine Sodium (Synthroid -) 100 mcg PO 0700 [facility] Last Admin: 10/25/18 06:19 Dose: 100 mcg Multivitamins/Minerals/Vitamin C (Tab-A-Vit -) 1 tab PO DAILY [facility] Last Admin: 10/25/18 09:39 Dose: 1 tab Non-Formulary Medication (Interferon Beta-1a [Avonex]) 30 mcg IM WEEKLY [facility] Pantoprazole Sodium (Protonix -) 40 mg PO DAILY [facility] Last Admin: 10/25/18 09:40 Dose: 40 mg Polyethylene Glycol (Miralax (For Daily Use) -) 17 gm PO BID [facility] Last Admin: 10/25/18 09:44 Dose: 17 grams Senna (Senna -) 2 tab PO HS [facility] Last Admin: 10/24/18 22:06 Dose: 2 tab Sodium Phosphate (Fleet Adult Rectal Enema -) 133 ml RC PRN PRN PRN Reason: CONSTIPATION Tamoxifen Citrate (Tamoxifen Citrate) 20 mg PO DAILY [facility] Last Admin: 10/25/18 09:39 Dose: 20 mg Zinc Sulfate (Orazinc -) 220 mg PO BID [facility] Last Admin: 10/25/18 09:39 Dose: 220 mg - Objective Vital Signs: Vital Signs Temperature 100.8 F H 10/25/18 06:38 Pulse Rate 84 10/25/18 06:38 Respiratory Rate 20 10/25/18 06:38 Blood Pressure 132/78 10/25/18 06:38 O2 Sat by Pulse Oximetry (%) 99 10/23/18 21:00 Constitutional: Yes: Other Cardiovascular: Yes: S1, S2 Respiratory: Yes: Regular, CTA Bilaterally Gastrointestinal: Yes: Soft Musculoskeletal: Yes: Other Extremities: Yes: Other (contracted) Neurological: Yes: Other Labs: CBC, BMP 10/25/18 06:30 10/25/18 06:30 INR, PTT INR 1.08 (0.83-1.09) 10/22/18 07:00 Assessment/Plan Problem List - Problems (1) Sepsis Code(s): A41.9 - SEPSIS, UNSPECIFIED ORGANISM (2) UTI (urinary tract infection) due to urinary indwelling catheter Code(s): T83.51XA - ; N39.0 - URINARY TRACT INFECTION, SITE NOT SPECIFIED (3) TANISHA (acute kidney injury) Code(s): N17.9 - ACUTE KIDNEY FAILURE, UNSPECIFIED (4) Breast CA Code(s): C50.919 - MALIGNANT NEOPLASM OF UNSP SITE OF UNSPECIFIED FEMALE BREAST (5) 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 Code(s): G35 - MULTIPLE SCLEROSIS; R53.2 - FUNCTIONAL QUADRIPLEGIA (6) GERD (gastroesophageal reflux disease) Code(s): K21.9 - GASTRO-ESOPHAGEAL REFLUX DISEASE WITHOUT ESOPHAGITIS Qualifiers: Esophagitis presence: without esophagitis Qualified Code(s): K21.9 - Gastro -esophageal reflux disease without esophagitis (7) Hydronephrosis Code(s): N13.30 - UNSPECIFIED HYDRONEPHROSIS Qualifiers: Hydronephrosis type: with renal and ureteral calculous obstruction Qualified Code(s): N13.2 - Hydronephrosis with renal and ureteral calculous obstruction (8) Hypothyroid Code(s): E03.9 - HYPOTHYROIDISM, UNSPECIFIED (9) Nephrolithiasis Code(s): N20.0 - CALCULUS OF KIDNEY (10) Neurogenic bladder Code(s): N31.9 - NEUROMUSCULAR DYSFUNCTION OF BLADDER, UNSPECIFIED Assessment/Plan Complicated UTI Sepsis Leukocytosis Neurogenic bladder s/p SPC MS Dementia wbc decreasing plan continue current mgmt close watch rest as per the team nutrition
[2018-10-25] MEDS: KCL 10 MEQ IVPB 10 MEQ/100 ML INFUS.BAG IVPB SCH ×3 (11:55→19:04)
--- NOTE | 2018-10-25 13:19 | PN ---
Progress Note, COOK PRESSURE - Note Progress Note: Selected Entries 10/23/18 10/23/18 10/23/18 02:40 06:00 08:20 Supper Temperature 97.5 F L 99.3 F 98.3 F 10/23/18 10/23/18 10/23/18 16:30 22:16 22:40 Supper Temperature 99.5 F 99.6 F 101.6 F H 10/24/18 10/24/18 10/24/18 06:00 09:50 15:00 Supper Temperature 99.1 F 98.8 F 99.6 F 10/24/18 10/24/18 10/24/18 16:20 18:30 22:00 Supper 75% Temperature 97.1 F L 97.3 F L 10/25/18 06:38 Supper Temperature 100.8 F H Laboratory Tests 10/21/18 10/22/18 10/23/18 10:00 07:00 06:30 WBC 8.5 24.2 H 13.0 H 10/24/18 10/25/18 07:20 06:30 WBC 15.6 H 14.0 H Last seen by me in May, tolerated puree/nectar at that time. Diet order-Dys puree/nectar MBS may be beneficial if aspiration is suspected, once pt is stronger and medically stable.
--- NOTE | 2018-10-25 14:50 | PN ---
Progress Note (short form) - Note Progress Note: urology note. spfoley changed
[2018-10-25] MEDS: ACETAMINOPHEN 325 MG TABLET (FP) PO PRN ×2 (18:01→21:42)
[2018-10-25] MEDS: SENNOSIDES 8.6MG TABLET (FP) PO SCH (21:43)
[2018-10-25] MEDS: DOCUSATE SODIUM 100 MG CAPSULE (FP) PO SCH (21:44)
[2018-10-26] MEDS ORDERED: PT OWN MED DRAWER 7, Y5N ONE ×3 (01:06→09:21)
[2018-10-26] MEDS: MEROPENEM 1 GM in DEXTROSE 5%-WATER 100 ML IVPB SCH ×3 (01:37→17:23)
[2018-10-26] MEDS: LEVOTHYROXINE NA 100 MCG TABLET (FP) PO SCH (06:27)
[2018-10-26] MEDS: ACETAMINOPHEN 325 MG TABLET (FP) PO PRN ×2 (06:53→17:23)
[2018-10-26 07:55] LABS: HEMATOCRIT 31.6 % (32.4-45.2); HEMOGLOBIN 10.3 GM/dL (10.7-15.3); MCH 27.8 pg (25.7-33.7); MCHC 32.5 g/dl (32.0-36.0); MEAN CELL VOLUME 85.8 fl (80-96); MEAN PLT VOLUME 9.1 fl (7.5-11.1); PLATELET COUNT 305 K/MM3 (134-434); RBC 3.69 M/mm3 (3.60-5.2); RDW 16.7 % (11.6-15.6); WHITE BLOOD COUNT 14.9 K/mm3 (4.0-10.0)
[2018-10-26 08:05] LABS: CALCIUM 8.3 mg/dL (8.5-10.1); CREATININE 0.3 mg/dL (0.55-1.3); MAGNESIUM 2.3 mg/dL (1.8-2.4); PHOSPHOROUS 1.6 mg/dL (2.5-4.9); POTASSIUM 3.7 mmol/L (3.5-5.1)
[2018-10-26] MEDS ORDERED: DEXTROSE 5%-WATER 100 ML IVPB ONE ×2 (09:20→17:20)
[2018-10-26] MEDS ORDERED: MEROPENEM 1 GM VIAL (RESTRICTED TO ID) IVPB ONE ×2 (09:20→17:19)
[2018-10-26] MEDS: ASCORBIC ACID 500 MG TABLET (FP) PO SCH (09:26)
[2018-10-26] MEDS: CHOLECALCIFEROL (VIT D3) 1,000 UNIT (25 MCG) TABLET PO SCH (09:26)
[2018-10-26] MEDS: CALCIUM 500MG/VIT-D 200 UNITS COMBO TABLET (FP) PO SCH (09:26)
[2018-10-26] MEDS: LACTOBACILLUS ACIDOPHILUS 1 TABLET PO SCH (09:26)
[2018-10-26] MEDS: PANTOPRAZOLE 40 MG TABLET (FP) PO SCH (09:26)
[2018-10-26] MEDS: MULTIVITAMINS (DAILY MVI) TABLET (FP) PO SCH (09:26)
[2018-10-26] MEDS: ZINC SULFATE 220 MG CAPSULE (FP) PO SCH ×2 (09:26→22:29)
[2018-10-26] MEDS: FERROUS SO4 325 MG TABLET (FP) PO SCH (09:26)
[2018-10-26] MEDS: ENOXAPARIN NA (PORCINE) 40 MG/0.4 ML DISP.SYRIN SQ SCH (09:27)
[2018-10-26] MEDS: BISACODYL 10 MG SUPP.RECT RC SCH (09:27)
[2018-10-26] MEDS: TAMOXIFEN CITRATE 10 MG TABLET PO SCH (09:27)
[2018-10-26] MEDS: POLYETHYLENE GLYCOL 3350 119 GM BTL PO SCH ×2 (09:38→22:29)
[2018-10-26] MEDS: FLUCONAZOLE 200 MG/D5W 100 ML IVPB SCH (10:47)
--- NOTE | 2018-10-26 10:49 | PN ---
Progress Note, Physician History of Present Illness: patient looks much more alert more interactive was able to eat - Current Medication List Current Medications: Active Medications Acetaminophen (Tylenol -) 650 mg PO Q4H PRN PRN Reason: FEVER Last Admin: 10/26/18 06:53 Dose: 650 mg Ascorbic Acid (Vitamin C -) 500 mg PO DAILY [facility] Last Admin: 10/26/18 09:26 Dose: 500 mg Bisacodyl (Dulcolax Suppository -) 10 mg RC DAILY [facility] Last Admin: 10/26/18 09:27 Dose: 10 mg Calcium Carbonate/Cholecalciferol (Os-Mikie 500+D -) 1 tab PO DAILY [facility] Last Admin: 10/26/18 09:26 Dose: 1 tab Cholecalciferol (Vitamin D3 -) 1,000 unit PO DAILY [facility] Last Admin: 10/26/18 09:26 Dose: 1,000 unit Docusate Sodium (Colace -) 100 mg PO HS [facility] Last Admin: 10/25/18 21:44 Dose: Not Given Enoxaparin Sodium (Lovenox -) 40 mg SQ DAILY [facility] Last Admin: 10/26/18 09:27 Dose: 40 mg Ferrous Sulfate (Feosol -) 325 mg PO DAILY [facility] Last Admin: 10/26/18 09:26 Dose: 325 mg Meropenem 1 gm/ Dextrose 100 mls @ 200 mls/hr IVPB Q8H-IV [facility] Last Admin: 10/26/18 09:25 Dose: 200 mls/hr Fluconazole (Diflucan 200 Mg/D5w Premixed Ivpb -) 100 mls @ 100 mls/hr IVPB DAILY [facility] Last Admin: 10/26/18 10:47 Dose: 100 mls/hr Lactobacillus Acidophilus (Bacid -) 1 tab PO DAILY [facility] Last Admin: 10/26/18 09:26 Dose: 1 tab Levothyroxine Sodium (Synthroid -) 100 mcg PO 0700 [facility] Last Admin: 10/26/18 06:27 Dose: 100 mcg Multivitamins/Minerals/Vitamin C (Tab-A-Vit -) 1 tab PO DAILY [facility] Last Admin: 10/26/18 09:26 Dose: 1 tab Non-Formulary Medication (Interferon Beta-1a [Avonex]) 30 mcg IM WEEKLY [facility] Pantoprazole Sodium (Protonix -) 40 mg PO DAILY [facility] Last Admin: 10/26/18 09:26 Dose: 40 mg Polyethylene Glycol (Miralax (For Daily Use) -) 17 gm PO BID [facility] Last Admin: 10/26/18 09:38 Dose: Not Given Senna (Senna -) 2 tab PO HS [facility] Last Admin: 10/25/18 21:43 Dose: Not Given Sodium Phosphate (Fleet Adult Rectal Enema -) 133 ml RC PRN PRN PRN Reason: CONSTIPATION Tamoxifen Citrate (Tamoxifen Citrate) 20 mg PO DAILY [facility] Last Admin: 10/26/18 09:27 Dose: 20 mg Zinc Sulfate (Orazinc -) 220 mg PO BID [facility] Last Admin: 10/26/18 09:26 Dose: 220 mg - Objective Vital Signs: Vital Signs Temperature 100.6 F H 10/26/18 06:49 Pulse Rate 78 10/26/18 06:49 Respiratory Rate 18 10/26/18 06:49 Blood Pressure 98/78 10/26/18 06:49 O2 Sat by Pulse Oximetry (%) 99 10/25/18 21:00 Constitutional: Yes: No Distress, Calm Cardiovascular: Yes: S1, S2 Respiratory: Yes: Regular, CTA Bilaterally Gastrointestinal: Yes: Normal Bowel Sounds, Soft Genitourinary: Yes: Chopra Present Musculoskeletal: Yes: WNL Extremities: Yes: Other Neurological: Yes: Alert Labs: CBC, BMP 10/26/18 07:00 10/26/18 07:00 INR, PTT INR 1.08 (0.83-1.09) 10/22/18 07:00 Assessment/Plan Problem List - Problems (1) Sepsis Code(s): A41.9 - SEPSIS, UNSPECIFIED ORGANISM (2) UTI (urinary tract infection) due to urinary indwelling catheter Code(s): T83.51XA - ; N39.0 - URINARY TRACT INFECTION, SITE NOT SPECIFIED (3) TANISHA (acute kidney injury) Code(s): N17.9 - ACUTE KIDNEY FAILURE, UNSPECIFIED (4) Breast CA Code(s): C50.919 - MALIGNANT NEOPLASM OF UNSP SITE OF UNSPECIFIED FEMALE BREAST (5) 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 Code(s): G35 - MULTIPLE SCLEROSIS; R53.2 - FUNCTIONAL QUADRIPLEGIA (6) GERD (gastroesophageal reflux disease) Code(s): K21.9 - GASTRO-ESOPHAGEAL REFLUX DISEASE WITHOUT ESOPHAGITIS Qualifiers: Esophagitis presence: without esophagitis Qualified Code(s): K21.9 - Gastro -esophageal reflux disease without esophagitis (7) Hydronephrosis Code(s): N13.30 - UNSPECIFIED HYDRONEPHROSIS Qualifiers: Hydronephrosis type: with renal and ureteral calculous obstruction Qualified Code(s): N13.2 - Hydronephrosis with renal and ureteral calculous obstruction (8) Hypothyroid Code(s): E03.9 - HYPOTHYROIDISM, UNSPECIFIED (9) Nephrolithiasis Code(s): N20.0 - CALCULUS OF KIDNEY (10) Neurogenic bladder Code(s): N31.9 - NEUROMUSCULAR DYSFUNCTION OF BLADDER, UNSPECIFIED Assessment/Plan Complicated UTI Sepsis Leukocytosis Neurogenic bladder s/p SPC MS Dementia wbc still on the higher side plan continue current mgmt close watch rest as per the team nutrition
--- NOTE | 2018-10-26 12:15 | PN ---
Progress Note, LEGAL SERVICE SPECIALIST - Note Progress Note: Selected Entries 10/23/18 10/23/18 10/23/18 02:40 06:00 08:20 Supper Temperature 97.5 F L 99.3 F 98.3 F 10/23/18 10/23/18 10/23/18 16:30 22:16 22:40 Supper Temperature 99.5 F 99.6 F 101.6 F H 10/24/18 10/24/18 10/24/18 06:00 09:50 15:00 Supper Temperature 99.1 F 98.8 F 99.6 F 10/24/18 10/24/18 10/24/18 16:20 18:30 22:00 Supper 75% Temperature 97.1 F L 97.3 F L 10/25/18 06:38 Supper Temperature 100.8 F H Laboratory Tests 10/21/18 10/22/18 10/23/18 10:00 07:00 06:30 WBC 8.5 24.2 H 13.0 H 10/24/18 10/25/18 07:20 06:30 WBC 15.6 H 14.0 H Selected Entries 10/25/18 10/25/18 10/25/18 06:38 10:00 16:30 Breakfast Temperature 100.8 F H 99.3 F 100.3 F H 10/25/18 10/25/18 10/26/18 21:12 23:02 06:49 Breakfast Temperature 100 F H 98.2 F 100.6 F H 10/26/18 10:00 Breakfast 75% Temperature Laboratory Tests 10/24/18 10/25/18 10/26/18 07:20 06:30 07:00 WBC 15.6 H 14.0 H 14.9 H Last seen by me in May, tolerated puree/nectar at that time. Diet order-Dys puree/nectar Pt tolerating puree/nectar thick liquid on a tsp. TAILING MACHINE OPERATOR reports intermittent coughing on 2Cal HN, which is considered nectar thick. REC: MBS may be beneficial if aspiration is suspected, once pt is stronger and medically stable. Supplement with Magic cup and ensure pudding. Please d/c 2Cal HN. Pt is tolerating PO intake overall with good tolerance overtly. Defer consideration for PEG at this time.
[2018-10-26] MEDS: SENNOSIDES 8.6MG TABLET (FP) PO SCH (22:29)
[2018-10-26] MEDS: DOCUSATE SODIUM 100 MG CAPSULE (FP) PO SCH (22:29)
[2018-10-27] MEDS ORDERED: MEROPENEM 1 GM VIAL (RESTRICTED TO ID) IVPB ONE ×4 (01:43→23:55)
[2018-10-27] MEDS ORDERED: DEXTROSE 5%-WATER 100 ML IVPB ONE ×4 (01:43→23:55)
[2018-10-27] MEDS: MEROPENEM 1 GM in DEXTROSE 5%-WATER 100 ML IVPB SCH ×3 (02:27→18:05)
[2018-10-27] MEDS: LEVOTHYROXINE NA 100 MCG TABLET (FP) PO SCH (06:21)
[2018-10-27] MEDS: ACETAMINOPHEN 325 MG TABLET (FP) PO PRN (07:01)
[2018-10-27] MEDS ORDERED: PT OWN MED DRAWER 7, Y5N ONE (09:41)
[2018-10-27] MEDS: FLUCONAZOLE 200 MG/D5W 100 ML IVPB SCH (09:52)
[2018-10-27] MEDS: CHOLECALCIFEROL (VIT D3) 1,000 UNIT (25 MCG) TABLET PO SCH (09:54)
[2018-10-27] MEDS: FERROUS SO4 325 MG TABLET (FP) PO SCH (09:54)
[2018-10-27] MEDS: CALCIUM 500MG/VIT-D 200 UNITS COMBO TABLET (FP) PO SCH (09:54)
[2018-10-27] MEDS: ZINC SULFATE 220 MG CAPSULE (FP) PO SCH ×2 (09:54→22:22)
[2018-10-27] MEDS: ENOXAPARIN NA (PORCINE) 40 MG/0.4 ML DISP.SYRIN SQ SCH (09:54)
[2018-10-27] MEDS: MULTIVITAMINS (DAILY MVI) TABLET (FP) PO SCH (09:54)
[2018-10-27] MEDS: LACTOBACILLUS ACIDOPHILUS 1 TABLET PO SCH (09:54)
[2018-10-27] MEDS: PANTOPRAZOLE 40 MG TABLET (FP) PO SCH (09:54)
[2018-10-27] MEDS: ASCORBIC ACID 500 MG TABLET (FP) PO SCH (09:54)
[2018-10-27] MEDS: TAMOXIFEN CITRATE 10 MG TABLET PO SCH (09:55)
[2018-10-27] MEDS: BISACODYL 10 MG SUPP.RECT RC SCH (09:55)
[2018-10-27] MEDS: POLYETHYLENE GLYCOL 3350 119 GM BTL PO SCH ×2 (09:55→22:23)
--- NOTE | 2018-10-27 11:34 | PN ---
Progress Note, Physician History of Present Illness: spiked a fever 101.8 still a bit dull more responsive though - Current Medication List Current Medications: Active Medications Acetaminophen (Tylenol -) 650 mg PO Q4H PRN PRN Reason: FEVER Last Admin: 10/27/18 07:01 Dose: 650 mg Ascorbic Acid (Vitamin C -) 500 mg PO DAILY [facility] Last Admin: 10/27/18 09:54 Dose: 500 mg Bisacodyl (Dulcolax Suppository -) 10 mg RC DAILY [facility] Last Admin: 10/27/18 09:55 Dose: Not Given Calcium Carbonate/Cholecalciferol (Os-Mikie 500+D -) 1 tab PO DAILY [facility] Last Admin: 10/27/18 09:54 Dose: 1 tab Cholecalciferol (Vitamin D3 -) 1,000 unit PO DAILY [facility] Last Admin: 10/27/18 09:54 Dose: 1,000 unit Docusate Sodium (Colace -) 100 mg PO HS [facility] Last Admin: 10/26/18 22:29 Dose: Not Given Enoxaparin Sodium (Lovenox -) 40 mg SQ DAILY [facility] Last Admin: 10/27/18 09:54 Dose: 40 mg Ferrous Sulfate (Feosol -) 325 mg PO DAILY [facility] Last Admin: 10/27/18 09:54 Dose: 325 mg Meropenem 1 gm/ Dextrose 100 mls @ 200 mls/hr IVPB Q8H-IV [facility] Last Admin: 10/27/18 11:24 Dose: 200 mls/hr Fluconazole (Diflucan 200 Mg/D5w Premixed Ivpb -) 100 mls @ 100 mls/hr IVPB DAILY [facility] Last Admin: 10/27/18 09:52 Dose: 100 mls/hr Lactobacillus Acidophilus (Bacid -) 1 tab PO DAILY [facility] Last Admin: 10/27/18 09:54 Dose: 1 tab Levothyroxine Sodium (Synthroid -) 100 mcg PO 0700 [facility] Last Admin: 10/27/18 06:21 Dose: 100 mcg Multivitamins/Minerals/Vitamin C (Tab-A-Vit -) 1 tab PO DAILY [facility] Last Admin: 10/27/18 09:54 Dose: 1 tab Non-Formulary Medication (Interferon Beta-1a [Avonex]) 30 mcg IM WEEKLY [facility] Pantoprazole Sodium (Protonix -) 40 mg PO DAILY [facility] Last Admin: 10/27/18 09:54 Dose: 40 mg Polyethylene Glycol (Miralax (For Daily Use) -) 17 gm PO BID [facility] Last Admin: 10/27/18 09:55 Dose: Not Given Senna (Senna -) 2 tab PO HS [facility] Last Admin: 10/26/18 22:29 Dose: Not Given Sodium Phosphate (Fleet Adult Rectal Enema -) 133 ml RC PRN PRN PRN Reason: CONSTIPATION Tamoxifen Citrate (Tamoxifen Citrate) 20 mg PO DAILY [facility] Last Admin: 10/27/18 09:55 Dose: 20 mg Zinc Sulfate (Orazinc -) 220 mg PO BID [facility] Last Admin: 10/27/18 09:54 Dose: 220 mg - Objective Vital Signs: Vital Signs Temperature 101.8 F H 10/27/18 07:49 Pulse Rate 76 10/27/18 07:49 Respiratory Rate 20 10/27/18 07:49 Blood Pressure 116/70 10/27/18 07:49 O2 Sat by Pulse Oximetry (%) 99 10/26/18 21:00 Constitutional: Yes: No Distress, Calm Cardiovascular: Yes: S1, S2 Respiratory: Yes: Regular, CTA Bilaterally Gastrointestinal: Yes: Normal Bowel Sounds, Soft Musculoskeletal: Yes: WNL Extremities: Yes: WNL Neurological: Yes: Alert, Oriented Psychiatric: Yes: Alert, Oriented Labs: CBC, BMP 10/26/18 07:00 10/26/18 07:00 INR, PTT INR 1.08 (0.83-1.09) 10/22/18 07:00 Assessment/Plan Problem List - Problems (1) Sepsis Code(s): A41.9 - SEPSIS, UNSPECIFIED ORGANISM (2) UTI (urinary tract infection) due to urinary indwelling catheter Code(s): T83.51XA - ; N39.0 - URINARY TRACT INFECTION, SITE NOT SPECIFIED (3) TANISHA (acute kidney injury) Code(s): N17.9 - ACUTE KIDNEY FAILURE, UNSPECIFIED (4) Breast CA Code(s): C50.919 - MALIGNANT NEOPLASM OF UNSP SITE OF UNSPECIFIED FEMALE BREAST (5) 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 Code(s): G35 - MULTIPLE SCLEROSIS; R53.2 - FUNCTIONAL QUADRIPLEGIA (6) GERD (gastroesophageal reflux disease) Code(s): K21.9 - GASTRO-ESOPHAGEAL REFLUX DISEASE WITHOUT ESOPHAGITIS Qualifiers: Esophagitis presence: without esophagitis Qualified Code(s): K21.9 - Gastro -esophageal reflux disease without esophagitis (7) Hydronephrosis Code(s): N13.30 - UNSPECIFIED HYDRONEPHROSIS Qualifiers: Hydronephrosis type: with renal and ureteral calculous obstruction Qualified Code(s): N13.2 - Hydronephrosis with renal and ureteral calculous obstruction (8) Hypothyroid Code(s): E03.9 - HYPOTHYROIDISM, UNSPECIFIED (9) Nephrolithiasis Code(s): N20.0 - CALCULUS OF KIDNEY (10) Neurogenic bladder Code(s): N31.9 - NEUROMUSCULAR DYSFUNCTION OF BLADDER, UNSPECIFIED Assessment/Plan Complicated UTI Sepsis Leukocytosis Neurogenic bladder s/p SPC MS Dementia plan continue current mgmt will check cbc tomorrow if fevers do blood and urine cx
--- NOTE | 2018-10-27 14:17 | PN ---
Progress Note, PIGGYBACK CLERK - Note Progress Note: Selected Entries 10/23/18 10/23/18 10/23/18 02:40 06:00 08:20 Supper Temperature 97.5 F L 99.3 F 98.3 F 10/23/18 10/23/18 10/23/18 16:30 22:16 22:40 Supper Temperature 99.5 F 99.6 F 101.6 F H 10/24/18 10/24/18 10/24/18 06:00 09:50 15:00 Supper Temperature 99.1 F 98.8 F 99.6 F 10/24/18 10/24/18 10/24/18 16:20 18:30 22:00 Supper 75% Temperature 97.1 F L 97.3 F L 10/25/18 06:38 Supper Temperature 100.8 F H Laboratory Tests 10/21/18 10/22/18 10/23/18 10:00 07:00 06:30 WBC 8.5 24.2 H 13.0 H 10/24/18 10/25/18 07:20 06:30 WBC 15.6 H 14.0 H Selected Entries 10/25/18 10/25/18 10/25/18 06:38 10:00 16:30 Breakfast Temperature 100.8 F H 99.3 F 100.3 F H 10/25/18 10/25/18 10/26/18 21:12 23:02 06:49 Breakfast Temperature 100 F H 98.2 F 100.6 F H 10/26/18 10:00 Breakfast 75% Temperature Laboratory Tests 10/24/18 10/25/18 10/26/18 07:20 06:30 07:00 WBC 15.6 H 14.0 H 14.9 H Selected Entries 10/26/18 10/26/18 10/27/18 10:00 19:04 06:45 Breakfast 75% Diet Tolerated Lunch 50% Supper 75% Temperature 101.8 F H 10/27/18 10/27/18 10/27/18 07:49 10:00 11:14 Breakfast 75% Diet Tolerated Fair Lunch Supper Temperature 101.8 F H 100 F H Laboratory Tests 10/26/18 07:00 WBC 14.9 H REC: MBS may be beneficial if aspiration is suspected, once pt is stronger and medically stable. Supplement with Magic cup and ensure pudding. Please d/c 2Cal HN. Pt is tolerating PO intake overall with good tolerance overtly. Defer consideration for PEG at this time.
--- NOTE | 2018-10-27 16:06 | PN ---
Progress Note, Physician Chief Complaint: Sepsis Suprapubic Catheter UTI MS History of Present Illness: Previous notes and events reviewed awake NAD patient spiked fever over night tmax 101.8F leukocytosis - Current Medication List Current Medications: Active Medications Acetaminophen (Tylenol -) 650 mg PO Q4H PRN PRN Reason: FEVER Last Admin: 10/27/18 07:01 Dose: 650 mg Ascorbic Acid (Vitamin C -) 500 mg PO DAILY [facility] Last Admin: 10/27/18 09:54 Dose: 500 mg Bisacodyl (Dulcolax Suppository -) 10 mg RC DAILY [facility] Last Admin: 10/27/18 09:55 Dose: Not Given Calcium Carbonate/Cholecalciferol (Os-Mikie 500+D -) 1 tab PO DAILY [facility] Last Admin: 10/27/18 09:54 Dose: 1 tab Cholecalciferol (Vitamin D3 -) 1,000 unit PO DAILY [facility] Last Admin: 10/27/18 09:54 Dose: 1,000 unit Docusate Sodium (Colace -) 100 mg PO HS [facility] Last Admin: 10/26/18 22:29 Dose: Not Given Enoxaparin Sodium (Lovenox -) 40 mg SQ DAILY [facility] Last Admin: 10/27/18 09:54 Dose: 40 mg Ferrous Sulfate (Feosol -) 325 mg PO DAILY [facility] Last Admin: 10/27/18 09:54 Dose: 325 mg Meropenem 1 gm/ Dextrose 100 mls @ 200 mls/hr IVPB Q8H-IV [facility] Last Admin: 10/27/18 11:24 Dose: 200 mls/hr Fluconazole (Diflucan 200 Mg/D5w Premixed Ivpb -) 100 mls @ 100 mls/hr IVPB DAILY [facility] Last Admin: 10/27/18 09:52 Dose: 100 mls/hr Lactobacillus Acidophilus (Bacid -) 1 tab PO DAILY [facility] Last Admin: 10/27/18 09:54 Dose: 1 tab Levothyroxine Sodium (Synthroid -) 100 mcg PO 0700 [facility] Last Admin: 10/27/18 06:21 Dose: 100 mcg Multivitamins/Minerals/Vitamin C (Tab-A-Vit -) 1 tab PO DAILY [facility] Last Admin: 10/27/18 09:54 Dose: 1 tab Non-Formulary Medication (Interferon Beta-1a [Avonex]) 30 mcg IM WEEKLY [facility] Pantoprazole Sodium (Protonix -) 40 mg PO DAILY [facility] Last Admin: 10/27/18 09:54 Dose: 40 mg Polyethylene Glycol (Miralax (For Daily Use) -) 17 gm PO BID [facility] Last Admin: 10/27/18 09:55 Dose: Not Given Senna (Senna -) 2 tab PO HS [facility] Last Admin: 10/26/18 22:29 Dose: Not Given Sodium Phosphate (Fleet Adult Rectal Enema -) 133 ml RC PRN PRN PRN Reason: CONSTIPATION Tamoxifen Citrate (Tamoxifen Citrate) 20 mg PO DAILY [facility] Last Admin: 10/27/18 09:55 Dose: 20 mg Zinc Sulfate (Orazinc -) 220 mg PO BID [facility] Last Admin: 10/27/18 09:54 Dose: 220 mg - Objective Vital Signs: Vital Signs Temperature 98.8 F 10/27/18 14:40 Pulse Rate 106 H 10/27/18 14:40 Respiratory Rate 18 10/27/18 14:40 Blood Pressure 114/75 10/27/18 14:40 O2 Sat by Pulse Oximetry (%) 99 10/27/18 09:00 Constitutional: Yes: No Distress, Calm Eyes: Yes: Conjunctiva Clear HENT: Yes: Atraumatic Cardiovascular: Yes: Regular Rate and Rhythm Respiratory: Yes: Regular, CTA Bilaterally Gastrointestinal: Yes: Normal Bowel Sounds, Soft Genitourinary: Yes: Other (suprapubic catheter) Musculoskeletal: Yes: Muscle Weakness Extremities: Yes: WNL Neurological: Yes: Alert, Pre-Existing Deficit Labs: CBC, BMP 10/26/18 07:00 10/26/18 07:00 INR, PTT INR 1.08 (0.83-1.09) 10/22/18 07:00 Problem List - Problems (1) Sepsis Assessment/Plan: -UC yeast like organism -BC neg -CXR shows left base aerated with persistent residual infiltrate or atelectasis -ID on board -Meropenem -Diflucan -WBC 14.9 -afebrile -tylenol IVPB for temp >100F -repeat BC and UC since fever spike Code(s): A41.9 - SEPSIS, UNSPECIFIED ORGANISM (2) 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 Assessment/Plan: -fall precaution -Avonex -aspiration precaution -CPC on board -MBS when medically stable Code(s): G35 - MULTIPLE SCLEROSIS; R53.2 - FUNCTIONAL QUADRIPLEGIA (3) GERD (gastroesophageal reflux disease) Assessment/Plan: -Pantoprazole Code(s): K21.9 - GASTRO-ESOPHAGEAL REFLUX DISEASE WITHOUT ESOPHAGITIS Qualifiers: Esophagitis presence: without esophagitis Qualified Code(s): K21.9 - Gastro -esophageal reflux disease without esophagitis (4) Hypothyroid Assessment/Plan: -Levothyroxine Code(s): E03.9 - HYPOTHYROIDISM, UNSPECIFIED (5) Neurogenic bladder Assessment/Plan: -suprapubic catheter -UC yeast like organism -Urology consult for leaking suprapubic catheter -Renal US Code(s): N31.9 - NEUROMUSCULAR DYSFUNCTION OF BLADDER, UNSPECIFIED (6) UTI (urinary tract infection) due to urinary indwelling catheter Assessment/Plan: -UC yeast like organism -ID on board -Merepenem and Diflucan -WBC 14.9 -febrile during the night--repeat BC and UC Code(s): T83.51XA - ; N39.0 - URINARY TRACT INFECTION, SITE NOT SPECIFIED Assessment/Plan see problem list dvt ppx
--- NOTE | 2018-10-27 17:37 | PN ---
Progress Note (short form) - Note Progress Note: UROLOGY NOTE 68 Y/O Female patient with history of Neurogenic Bladder on SPC, changed 2 days ago c/o lesaking around the catheter. O/E soft abd, SPC in place and draining well, 600 cc over 8hrs. another 5ml added to the catheter balloon.
[2018-10-27] MEDS: DOCUSATE SODIUM 100 MG CAPSULE (FP) PO SCH (22:22)
[2018-10-27] MEDS: SENNOSIDES 8.6MG TABLET (FP) PO SCH (22:23)
[2018-10-28] MEDS: MEROPENEM 1 GM in DEXTROSE 5%-WATER 100 ML IVPB SCH ×3 (02:16→17:47)
[2018-10-28] MEDS: LEVOTHYROXINE NA 100 MCG TABLET (FP) PO SCH (06:11)
[2018-10-28 08:15] LABS: HEMATOCRIT 33.6 % (32.4-45.2); HEMOGLOBIN 10.8 GM/dL (10.7-15.3); MCH 27.6 pg (25.7-33.7); MCHC 32.1 g/dl (32.0-36.0); MEAN CELL VOLUME 85.8 fl (80-96); MEAN PLT VOLUME 8.9 fl (7.5-11.1); PLATELET COUNT 395 K/MM3 (134-434); RBC 3.91 M/mm3 (3.60-5.2); RDW 16.8 % (11.6-15.6); WHITE BLOOD COUNT 11.4 K/mm3 (4.0-10.0)
[2018-10-28 08:35] LABS: ALBUMIN 2.3 g/dl (3.4-5.0); BILIRUBIN,TOTAL 0.4 mg/dL (0.2-1); CALCIUM 8.9 mg/dL (8.5-10.1); CREATININE 0.3 mg/dL (0.55-1.3); POTASSIUM 3.4 mmol/L (3.5-5.1)
--- NOTE | 2018-10-28 09:21 | PN ---
Progress Note, Physician Chief Complaint: AWAKE APHASIA PERSISTENT FEVERS - Current Medication List Current Medications: Active Medications Acetaminophen (Tylenol -) 650 mg PO Q4H PRN PRN Reason: FEVER Last Admin: 10/27/18 07:01 Dose: 650 mg Ascorbic Acid (Vitamin C -) 500 mg PO DAILY [facility] Last Admin: 10/27/18 09:54 Dose: 500 mg Bisacodyl (Dulcolax Suppository -) 10 mg RC DAILY [facility] Last Admin: 10/27/18 09:55 Dose: Not Given Calcium Carbonate/Cholecalciferol (Os-Mikie 500+D -) 1 tab PO DAILY [facility] Last Admin: 10/27/18 09:54 Dose: 1 tab Cholecalciferol (Vitamin D3 -) 1,000 unit PO DAILY [facility] Last Admin: 10/27/18 09:54 Dose: 1,000 unit Docusate Sodium (Colace -) 100 mg PO HS [facility] Last Admin: 10/27/18 22:22 Dose: 100 mg Enoxaparin Sodium (Lovenox -) 40 mg SQ DAILY [facility] Last Admin: 10/27/18 09:54 Dose: 40 mg Ferrous Sulfate (Feosol -) 325 mg PO DAILY [facility] Last Admin: 10/27/18 09:54 Dose: 325 mg Meropenem 1 gm/ Dextrose 100 mls @ 200 mls/hr IVPB Q8H-IV [facility] Last Admin: 10/28/18 02:16 Dose: 200 mls/hr Fluconazole (Diflucan 200 Mg/D5w Premixed Ivpb -) 100 mls @ 100 mls/hr IVPB DAILY [facility] Last Admin: 10/27/18 09:52 Dose: 100 mls/hr Potassium Chloride (Potassium Chloride 10 Meq Premix Ivpb -) 10 meq in 100 mls @ 100 mls/hr IVPB Q60M [facility] Stop: 10/28/18 10:29 Lactobacillus Acidophilus (Bacid -) 1 tab PO DAILY [facility] Last Admin: 10/27/18 09:54 Dose: 1 tab Levothyroxine Sodium (Synthroid -) 100 mcg PO 0700 [facility] Last Admin: 10/28/18 06:11 Dose: 100 mcg Multivitamins/Minerals/Vitamin C (Tab-A-Vit -) 1 tab PO DAILY [facility] Last Admin: 10/27/18 09:54 Dose: 1 tab Non-Formulary Medication (Interferon Beta-1a [Avonex]) 30 mcg IM WEEKLY [facility] Pantoprazole Sodium (Protonix -) 40 mg PO DAILY [facility] Last Admin: 10/27/18 09:54 Dose: 40 mg Polyethylene Glycol (Miralax (For Daily Use) -) 17 gm PO BID [facility] Last Admin: 10/27/18 22:23 Dose: Not Given Senna (Senna -) 2 tab PO HS [facility] Last Admin: 10/27/18 22:23 Dose: 2 tab Sodium Phosphate (Fleet Adult Rectal Enema -) 133 ml RC PRN PRN PRN Reason: CONSTIPATION Tamoxifen Citrate (Tamoxifen Citrate) 20 mg PO DAILY [facility] Last Admin: 10/27/18 09:55 Dose: 20 mg Zinc Sulfate (Orazinc -) 220 mg PO BID [facility] Last Admin: 10/27/18 22:22 Dose: 220 mg - Objective Vital Signs: Vital Signs Temperature 97.8 F 10/28/18 06:00 Pulse Rate 85 10/28/18 06:00 Respiratory Rate 18 10/28/18 06:00 Blood Pressure 132/72 10/28/18 06:00 O2 Sat by Pulse Oximetry (%) 99 10/27/18 21:00 Constitutional: Yes: No Distress Eyes: Yes: Other Cardiovascular: Yes: Tachycardia Respiratory: Yes: Diminished Gastrointestinal: Yes: Soft Genitourinary: Yes: Chopra Present Musculoskeletal: Yes: Muscle Weakness Edema: No Integumentary: Yes: Pressure Ulcer, Rash Wound/Incision: Yes: Dressing Dry and Intact Neurological: Yes: Aphasia, Pre-Existing Deficit Labs: CBC, BMP 10/28/18 07:30 10/28/18 07:30 INR, PTT INR 1.08 (0.83-1.09) 10/22/18 07:00 Problem List - Problems (1) Sepsis Code(s): A41.9 - SEPSIS, UNSPECIFIED ORGANISM (2) UTI (urinary tract infection) due to urinary indwelling catheter Code(s): T83.51XA - ; N39.0 - URINARY TRACT INFECTION, SITE NOT SPECIFIED (3) TANISHA (acute kidney injury) Code(s): N17.9 - ACUTE KIDNEY FAILURE, UNSPECIFIED (4) Abnormal CT scan Code(s): R93.8 - ABNORMAL FINDINGS ON DIAGNOSTIC IMAGING OF APOORVA * DO NOT USE * (5) Anemia Code(s): D64.9 - ANEMIA, UNSPECIFIED (6) Breast CA Code(s): C50.919 - MALIGNANT NEOPLASM OF UNSP SITE OF UNSPECIFIED FEMALE BREAST (7) Decubitus ulcer Code(s): L89.90 - PRESSURE ULCER OF UNSPECIFIED SITE, UNSPECIFIED STAGE (8) 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 Code(s): G35 - MULTIPLE SCLEROSIS; R53.2 - FUNCTIONAL QUADRIPLEGIA (9) Aphasia Code(s): R47.01 - APHASIA (10) Dysphagia Code(s): R13.10 - DYSPHAGIA, UNSPECIFIED Qualifiers: Dysphagia type: oropharyngeal phase Qualified Code(s): R13.12 - Dysphagia, oropharyngeal phase Assessment/Plan IV ABX FOR UROSEPSIS D/W ID DR LAURENT PERSISTNT FEVERS ON MERIPENAM SACRAL ULCER STAGE 2-3 ADDING COLLAGENASE ASPIRATION PNEUMONIA ON ABX AND NEBS DYSPHAGIA PRECAUTIONS REPLETE KCL ADVANCE DIRECTIVES NEED TO D/W FAMILY PALLIATIVE CARE CONSULT
--- NOTE | 2018-10-28 09:25 | PN ---
Progress Note, Physician Chief Complaint: spiked fever wbc trending down - Current Medication List Current Medications: Active Medications Acetaminophen (Tylenol -) 650 mg PO Q4H PRN PRN Reason: FEVER Last Admin: 10/27/18 07:01 Dose: 650 mg Ascorbic Acid (Vitamin C -) 500 mg PO DAILY [facility] Last Admin: 10/27/18 09:54 Dose: 500 mg Bisacodyl (Dulcolax Suppository -) 10 mg RC DAILY [facility] Last Admin: 10/27/18 09:55 Dose: Not Given Calcium Carbonate/Cholecalciferol (Os-Mikie 500+D -) 1 tab PO DAILY [facility] Last Admin: 10/27/18 09:54 Dose: 1 tab Cholecalciferol (Vitamin D3 -) 1,000 unit PO DAILY [facility] Last Admin: 10/27/18 09:54 Dose: 1,000 unit Docusate Sodium (Colace -) 100 mg PO HS [facility] Last Admin: 10/27/18 22:22 Dose: 100 mg Enoxaparin Sodium (Lovenox -) 40 mg SQ DAILY [facility] Last Admin: 10/27/18 09:54 Dose: 40 mg Ferrous Sulfate (Feosol -) 325 mg PO DAILY [facility] Last Admin: 10/27/18 09:54 Dose: 325 mg Meropenem 1 gm/ Dextrose 100 mls @ 200 mls/hr IVPB Q8H-IV [facility] Last Admin: 10/28/18 02:16 Dose: 200 mls/hr Fluconazole (Diflucan 200 Mg/D5w Premixed Ivpb -) 100 mls @ 100 mls/hr IVPB DAILY [facility] Last Admin: 10/27/18 09:52 Dose: 100 mls/hr Potassium Chloride (Potassium Chloride 10 Meq Premix Ivpb -) 10 meq in 100 mls @ 100 mls/hr IVPB Q60M [facility] Stop: 10/28/18 10:29 Lactobacillus Acidophilus (Bacid -) 1 tab PO DAILY [facility] Last Admin: 10/27/18 09:54 Dose: 1 tab Levothyroxine Sodium (Synthroid -) 100 mcg PO 0700 [facility] Last Admin: 10/28/18 06:11 Dose: 100 mcg Multivitamins/Minerals/Vitamin C (Tab-A-Vit -) 1 tab PO DAILY [facility] Last Admin: 10/27/18 09:54 Dose: 1 tab Non-Formulary Medication (Interferon Beta-1a [Avonex]) 30 mcg IM WEEKLY [facility] Pantoprazole Sodium (Protonix -) 40 mg PO DAILY [facility] Last Admin: 10/27/18 09:54 Dose: 40 mg Polyethylene Glycol (Miralax (For Daily Use) -) 17 gm PO BID [facility] Last Admin: 10/27/18 22:23 Dose: Not Given Senna (Senna -) 2 tab PO HS [facility] Last Admin: 10/27/18 22:23 Dose: 2 tab Sodium Phosphate (Fleet Adult Rectal Enema -) 133 ml RC PRN PRN PRN Reason: CONSTIPATION Tamoxifen Citrate (Tamoxifen Citrate) 20 mg PO DAILY [facility] Last Admin: 10/27/18 09:55 Dose: 20 mg Zinc Sulfate (Orazinc -) 220 mg PO BID [facility] Last Admin: 10/27/18 22:22 Dose: 220 mg - Objective Vital Signs: Vital Signs Temperature 97.8 F 10/28/18 06:00 Pulse Rate 85 10/28/18 06:00 Respiratory Rate 18 10/28/18 06:00 Blood Pressure 132/72 10/28/18 06:00 O2 Sat by Pulse Oximetry (%) 99 10/27/18 21:00 Constitutional: Yes: No Distress, Calm Cardiovascular: Yes: S1, S2 Respiratory: Yes: Regular, CTA Bilaterally Gastrointestinal: Yes: Normal Bowel Sounds, Soft Musculoskeletal: Yes: WNL Extremities: Yes: Other Neurological: Yes: Alert Psychiatric: Yes: Alert Labs: CBC, BMP 10/28/18 07:30 10/28/18 07:30 INR, PTT INR 1.08 (0.83-1.09) 10/22/18 07:00 Assessment/Plan Problem List - Problems (1) Sepsis Code(s): A41.9 - SEPSIS, UNSPECIFIED ORGANISM (2) UTI (urinary tract infection) due to urinary indwelling catheter Code(s): T83.51XA - ; N39.0 - URINARY TRACT INFECTION, SITE NOT SPECIFIED (3) TANISHA (acute kidney injury) Code(s): N17.9 - ACUTE KIDNEY FAILURE, UNSPECIFIED (4) Breast CA Code(s): C50.919 - MALIGNANT NEOPLASM OF UNSP SITE OF UNSPECIFIED FEMALE BREAST (5) 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 Code(s): G35 - MULTIPLE SCLEROSIS; R53.2 - FUNCTIONAL QUADRIPLEGIA (6) GERD (gastroesophageal reflux disease) Code(s): K21.9 - GASTRO-ESOPHAGEAL REFLUX DISEASE WITHOUT ESOPHAGITIS Qualifiers: Esophagitis presence: without esophagitis Qualified Code(s): K21.9 - Gastro -esophageal reflux disease without esophagitis (7) Hydronephrosis Code(s): N13.30 - UNSPECIFIED HYDRONEPHROSIS Qualifiers: Hydronephrosis type: with renal and ureteral calculous obstruction Qualified Code(s): N13.2 - Hydronephrosis with renal and ureteral calculous obstruction (8) Hypothyroid Code(s): E03.9 - HYPOTHYROIDISM, UNSPECIFIED (9) Nephrolithiasis Code(s): N20.0 - CALCULUS OF KIDNEY (10) Neurogenic bladder Code(s): N31.9 - NEUROMUSCULAR DYSFUNCTION OF BLADDER, UNSPECIFIED Assessment/Plan Complicated UTI Sepsis Leukocytosis Neurogenic bladder s/p SPC MS Dementia plan continue current mgmt wbc trending down will see how patient does continue abx
[2018-10-28] MEDS ORDERED: MEROPENEM 1 GM VIAL (RESTRICTED TO ID) IVPB ONE ×2 (09:27→17:33)
[2018-10-28] MEDS ORDERED: DEXTROSE 5%-WATER 100 ML IVPB ONE ×2 (09:27→17:34)
[2018-10-28] MEDS ORDERED: KCL 10 MEQ IVPB 10 MEQ/100 ML INFUS.BAG IVPB SCH (09:30)
[2018-10-28] MEDS: FLUCONAZOLE 200 MG/D5W 100 ML IVPB SCH (09:44)
[2018-10-28] MEDS: PANTOPRAZOLE 40 MG TABLET (FP) PO SCH (09:45)
[2018-10-28] MEDS: FERROUS SO4 325 MG TABLET (FP) PO SCH (09:45)
[2018-10-28] MEDS: CALCIUM 500MG/VIT-D 200 UNITS COMBO TABLET (FP) PO SCH (09:45)
[2018-10-28] MEDS: ZINC SULFATE 220 MG CAPSULE (FP) PO SCH ×2 (09:45→21:27)
[2018-10-28] MEDS: LACTOBACILLUS ACIDOPHILUS 1 TABLET PO SCH (09:45)
[2018-10-28] MEDS: ENOXAPARIN NA (PORCINE) 40 MG/0.4 ML DISP.SYRIN SQ SCH (09:45)
[2018-10-28] MEDS: MULTIVITAMINS (DAILY MVI) TABLET (FP) PO SCH (09:45)
[2018-10-28] MEDS: ASCORBIC ACID 500 MG TABLET (FP) PO SCH (09:45)
[2018-10-28] MEDS: CHOLECALCIFEROL (VIT D3) 1,000 UNIT (25 MCG) TABLET PO SCH (09:45)
[2018-10-28] MEDS: TAMOXIFEN CITRATE 10 MG TABLET PO SCH (09:46)
[2018-10-28] MEDS: BISACODYL 10 MG SUPP.RECT RC SCH (09:46)
[2018-10-28] MEDS: POLYETHYLENE GLYCOL 3350 119 GM BTL PO SCH ×2 (09:46→21:27)
[2018-10-28] MEDS: DOCUSATE SODIUM 100 MG CAPSULE (FP) PO SCH (21:26)
[2018-10-28] MEDS: SENNOSIDES 8.6MG TABLET (FP) PO SCH (21:27)
[2018-10-28] MEDS: ACETAMINOPHEN 325 MG TABLET (FP) PO PRN (22:51)
[2018-10-29] MEDS ORDERED: MEROPENEM 1 GM VIAL (RESTRICTED TO ID) IVPB ONE ×2 (00:12→10:26)
[2018-10-29] MEDS ORDERED: DEXTROSE 5%-WATER 100 ML IVPB ONE ×2 (00:13→10:26)
[2018-10-29] MEDS: MEROPENEM 1 GM in DEXTROSE 5%-WATER 100 ML IVPB SCH ×2 (01:27→10:36)
[2018-10-29] MEDS: LEVOTHYROXINE NA 100 MCG TABLET (FP) PO SCH (06:08)
[2018-10-29] MEDS: ZINC SULFATE 220 MG CAPSULE (FP) PO SCH ×2 (10:35→21:26)
[2018-10-29] MEDS: ASCORBIC ACID 500 MG TABLET (FP) PO SCH (10:35)
[2018-10-29] MEDS: CHOLECALCIFEROL (VIT D3) 1,000 UNIT (25 MCG) TABLET PO SCH (10:35)
[2018-10-29] MEDS: MULTIVITAMINS (DAILY MVI) TABLET (FP) PO SCH (10:35)
[2018-10-29] MEDS: FERROUS SO4 325 MG TABLET (FP) PO SCH (10:35)
[2018-10-29] MEDS: BISACODYL 10 MG SUPP.RECT RC SCH (10:35)
[2018-10-29] MEDS: CALCIUM 500MG/VIT-D 200 UNITS COMBO TABLET (FP) PO SCH (10:36)
[2018-10-29] MEDS: LACTOBACILLUS ACIDOPHILUS 1 TABLET PO SCH (10:36)
[2018-10-29] MEDS: PANTOPRAZOLE 40 MG TABLET (FP) PO SCH (10:36)
[2018-10-29] MEDS: FLUCONAZOLE 200 MG/D5W 100 ML IVPB SCH (10:36)
[2018-10-29] MEDS: TAMOXIFEN CITRATE 10 MG TABLET PO SCH (10:37)
[2018-10-29] MEDS: ENOXAPARIN NA (PORCINE) 40 MG/0.4 ML DISP.SYRIN SQ SCH (10:37)
[2018-10-29] MEDS: POLYETHYLENE GLYCOL 3350 119 GM BTL PO SCH ×2 (10:37→21:32)
--- NOTE | 2018-10-29 10:48 | PN ---
Progress Note, Physician Chief Complaint: STILL WITH PERSISTENT FEVERS APPETITE IS GOOD - Current Medication List Current Medications: Active Medications Acetaminophen (Tylenol -) 650 mg PO Q4H PRN PRN Reason: FEVER Last Admin: 10/28/18 22:51 Dose: 650 mg Ascorbic Acid (Vitamin C -) 500 mg PO DAILY [facility] Last Admin: 10/29/18 10:35 Dose: 500 mg Bisacodyl (Dulcolax Suppository -) 10 mg RC DAILY [facility] Last Admin: 10/29/18 10:35 Dose: Not Given Calcium Carbonate/Cholecalciferol (Os-Mikie 500+D -) 1 tab PO DAILY [facility] Last Admin: 10/29/18 10:36 Dose: 1 tab Cholecalciferol (Vitamin D3 -) 1,000 unit PO DAILY [facility] Last Admin: 10/29/18 10:35 Dose: 1,000 unit Collagenase (Santyl -) 1 applic TP DAILY [facility]; Protocol Docusate Sodium (Colace -) 100 mg PO HS [facility] Last Admin: 10/28/18 21:26 Dose: Not Given Enoxaparin Sodium (Lovenox -) 40 mg SQ DAILY [facility] Last Admin: 10/29/18 10:37 Dose: 40 mg Ferrous Sulfate (Feosol -) 325 mg PO DAILY [facility] Last Admin: 10/29/18 10:35 Dose: 325 mg Meropenem 1 gm/ Dextrose 100 mls @ 200 mls/hr IVPB Q8H-IV [facility] Last Admin: 10/29/18 10:36 Dose: 200 mls/hr Fluconazole (Diflucan 200 Mg/D5w Premixed Ivpb -) 100 mls @ 100 mls/hr IVPB DAILY [facility] Last Admin: 10/29/18 10:36 Dose: 100 mls/hr Lactobacillus Acidophilus (Bacid -) 1 tab PO DAILY [facility] Last Admin: 10/29/18 10:36 Dose: 1 tab Levothyroxine Sodium (Synthroid -) 100 mcg PO 0700 [facility] Last Admin: 10/29/18 06:08 Dose: 100 mcg Multivitamins/Minerals/Vitamin C (Tab-A-Vit -) 1 tab PO DAILY [facility] Last Admin: 10/29/18 10:35 Dose: 1 tab Non-Formulary Medication (Interferon Beta-1a [Avonex]) 30 mcg IM WEEKLY [facility] Pantoprazole Sodium (Protonix -) 40 mg PO DAILY [facility] Last Admin: 10/29/18 10:36 Dose: 40 mg Polyethylene Glycol (Miralax (For Daily Use) -) 17 gm PO BID [facility] Last Admin: 10/29/18 10:37 Dose: Not Given Senna (Senna -) 2 tab PO HS [facility] Last Admin: 10/28/18 21:27 Dose: Not Given Sodium Phosphate (Fleet Adult Rectal Enema -) 133 ml RC PRN PRN PRN Reason: CONSTIPATION Tamoxifen Citrate (Tamoxifen Citrate) 20 mg PO DAILY [facility] Last Admin: 10/29/18 10:37 Dose: 20 mg Zinc Sulfate (Orazinc -) 220 mg PO BID [facility] Last Admin: 10/29/18 10:35 Dose: 220 mg - Objective Vital Signs: Vital Signs Temperature 99.8 F H 10/29/18 06:00 Pulse Rate 118 H 10/29/18 06:00 Respiratory Rate 18 10/29/18 06:00 Blood Pressure 100/54 L 10/29/18 06:00 O2 Sat by Pulse Oximetry (%) 99 10/28/18 21:00 Constitutional: Yes: Mild Distress Eyes: Yes: Other Cardiovascular: Yes: Tachycardia Respiratory: Yes: Diminished, On Nasal O2 Gastrointestinal: Yes: Soft Genitourinary: Yes: Chopra Present, Incontinence Musculoskeletal: Yes: Muscle Weakness Edema: Yes Edema: LLE: Trace, RLE: Trace Integumentary: Yes: Pressure Ulcer (STAGE 2-3 BUTTOCK) Wound/Incision: Yes: Dressing Dry and Intact Neurological: Yes: Pre-Existing Deficit, Unresponsive Labs: CBC, BMP 10/28/18 07:30 10/28/18 07:30 INR, PTT INR 1.08 (0.83-1.09) 10/22/18 07:00 Problem List - Problems (1) Sepsis Code(s): A41.9 - SEPSIS, UNSPECIFIED ORGANISM (2) UTI (urinary tract infection) due to urinary indwelling catheter Code(s): T83.51XA - ; N39.0 - URINARY TRACT INFECTION, SITE NOT SPECIFIED (3) TANISHA (acute kidney injury) Code(s): N17.9 - ACUTE KIDNEY FAILURE, UNSPECIFIED (4) Abnormal CT scan Code(s): R93.8 - ABNORMAL FINDINGS ON DIAGNOSTIC IMAGING OF APOORVA * DO NOT USE * (5) Anemia Code(s): D64.9 - ANEMIA, UNSPECIFIED (6) Breast CA Code(s): C50.919 - MALIGNANT NEOPLASM OF UNSP SITE OF UNSPECIFIED FEMALE BREAST (7) Decubitus ulcer Code(s): L89.90 - PRESSURE ULCER OF UNSPECIFIED SITE, UNSPECIFIED STAGE Qualifiers: Qualified Code(s): L89.93 - Pressure ulcer of unspecified site, stage 3 (8) 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 Code(s): G35 - MULTIPLE SCLEROSIS; R53.2 - FUNCTIONAL QUADRIPLEGIA (9) Aphasia Code(s): R47.01 - APHASIA (10) Dysphagia Code(s): R13.10 - DYSPHAGIA, UNSPECIFIED Qualifiers: Dysphagia type: oropharyngeal phase Qualified Code(s): R13.12 - Dysphagia, oropharyngeal phase Assessment/Plan IV ABX FOR UROSEPSIS SACRAL ULCER STAGE 2-3 ADDING COLLAGENASE ASPIRATION PNEUMONIA ON ABX AND NEBS DYSPHAGIA PRECAUTIONS REPLETE KCL ADVANCE DIRECTIVES NEED TO D/W FAMILY PALLIATIVE CARE CONSULT
--- NOTE | 2018-10-29 13:10 | PN ---
Progress Note, Physician History of Present Illness: still with fevers repeat urine cx noted catheter changed - Current Medication List Current Medications: Active Medications Acetaminophen (Tylenol -) 650 mg PO Q4H PRN PRN Reason: FEVER Last Admin: 10/28/18 22:51 Dose: 650 mg Ascorbic Acid (Vitamin C -) 500 mg PO DAILY [facility] Last Admin: 10/29/18 10:35 Dose: 500 mg Bisacodyl (Dulcolax Suppository -) 10 mg RC DAILY [facility] Last Admin: 10/29/18 10:35 Dose: Not Given Calcium Carbonate/Cholecalciferol (Os-Mikie 500+D -) 1 tab PO DAILY [facility] Last Admin: 10/29/18 10:36 Dose: 1 tab Cholecalciferol (Vitamin D3 -) 1,000 unit PO DAILY [facility] Last Admin: 10/29/18 10:35 Dose: 1,000 unit Collagenase (Santyl -) 1 applic TP DAILY [facility]; Protocol Docusate Sodium (Colace -) 100 mg PO HS [facility] Last Admin: 10/28/18 21:26 Dose: Not Given Enoxaparin Sodium (Lovenox -) 40 mg SQ DAILY [facility] Last Admin: 10/29/18 10:37 Dose: 40 mg Ferrous Sulfate (Feosol -) 325 mg PO DAILY [facility] Last Admin: 10/29/18 10:35 Dose: 325 mg Meropenem 1 gm/ Dextrose 100 mls @ 200 mls/hr IVPB Q8H-IV [facility] Last Admin: 10/29/18 10:36 Dose: 200 mls/hr Fluconazole (Diflucan 200 Mg/D5w Premixed Ivpb -) 100 mls @ 100 mls/hr IVPB DAILY [facility] Last Admin: 10/29/18 10:36 Dose: 100 mls/hr Lactobacillus Acidophilus (Bacid -) 1 tab PO DAILY [facility] Last Admin: 10/29/18 10:36 Dose: 1 tab Levothyroxine Sodium (Synthroid -) 100 mcg PO 0700 [facility] Last Admin: 10/29/18 06:08 Dose: 100 mcg Multivitamins/Minerals/Vitamin C (Tab-A-Vit -) 1 tab PO DAILY [facility] Last Admin: 10/29/18 10:35 Dose: 1 tab Non-Formulary Medication (Interferon Beta-1a [Avonex]) 30 mcg IM WEEKLY [facility] Pantoprazole Sodium (Protonix -) 40 mg PO DAILY [facility] Last Admin: 10/29/18 10:36 Dose: 40 mg Polyethylene Glycol (Miralax (For Daily Use) -) 17 gm PO BID [facility] Last Admin: 10/29/18 10:37 Dose: Not Given Senna (Senna -) 2 tab PO HS [facility] Last Admin: 10/28/18 21:27 Dose: Not Given Sodium Phosphate (Fleet Adult Rectal Enema -) 133 ml RC PRN PRN PRN Reason: CONSTIPATION Tamoxifen Citrate (Tamoxifen Citrate) 20 mg PO DAILY [facility] Last Admin: 10/29/18 10:37 Dose: 20 mg Zinc Sulfate (Orazinc -) 220 mg PO BID [facility] Last Admin: 10/29/18 10:35 Dose: 220 mg - Objective Vital Signs: Vital Signs Temperature 99.8 F H 10/29/18 06:00 Pulse Rate 118 H 10/29/18 06:00 Respiratory Rate 18 10/29/18 06:00 Blood Pressure 100/54 L 10/29/18 06:00 O2 Sat by Pulse Oximetry (%) 99 10/28/18 21:00 Constitutional: Yes: No Distress, Calm Cardiovascular: Yes: S1, S2 Respiratory: Yes: Regular, CTA Bilaterally Gastrointestinal: Yes: Normal Bowel Sounds, Soft Musculoskeletal: Yes: WNL Extremities: Yes: Other Neurological: Yes: Alert, Other Labs: CBC, BMP 10/28/18 07:30 10/28/18 07:30 INR, PTT INR 1.08 (0.83-1.09) 10/22/18 07:00 Assessment/Plan Problem List - Problems (1) Sepsis Code(s): A41.9 - SEPSIS, UNSPECIFIED ORGANISM (2) UTI (urinary tract infection) due to urinary indwelling catheter Code(s): T83.51XA - ; N39.0 - URINARY TRACT INFECTION, SITE NOT SPECIFIED (3) TANISHA (acute kidney injury) Code(s): N17.9 - ACUTE KIDNEY FAILURE, UNSPECIFIED (4) Breast CA Code(s): C50.919 - MALIGNANT NEOPLASM OF UNSP SITE OF UNSPECIFIED FEMALE BREAST (5) 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 Code(s): G35 - MULTIPLE SCLEROSIS; R53.2 - FUNCTIONAL QUADRIPLEGIA (6) GERD (gastroesophageal reflux disease) Code(s): K21.9 - GASTRO-ESOPHAGEAL REFLUX DISEASE WITHOUT ESOPHAGITIS Qualifiers: Esophagitis presence: without esophagitis Qualified Code(s): K21.9 - Gastro -esophageal reflux disease without esophagitis (7) Hydronephrosis Code(s): N13.30 - UNSPECIFIED HYDRONEPHROSIS Qualifiers: Hydronephrosis type: with renal and ureteral calculous obstruction Qualified Code(s): N13.2 - Hydronephrosis with renal and ureteral calculous obstruction (8) Hypothyroid Code(s): E03.9 - HYPOTHYROIDISM, UNSPECIFIED (9) Nephrolithiasis Code(s): N20.0 - CALCULUS OF KIDNEY (10) Neurogenic bladder Code(s): N31.9 - NEUROMUSCULAR DYSFUNCTION OF BLADDER, UNSPECIFIED Assessment/Plan Complicated UTI Sepsis Leukocytosis Neurogenic bladder s/p SPC MS Dementia plan will see what is the wbc tomorrow lockhart stop abx and monitor
[2018-10-29] MEDS: COLLAGENASE CLOSTRIDIUM HIST. 30 GRAMS TUBE TP SCH (14:36)
--- NOTE | 2018-10-29 18:35 | HOSP ---
Subjective - Review of Symptoms Events since last encounter: patient unable to participate in ROS. Physical Examination Vital Signs: Vital Signs Temperature 99.3 F 10/29/18 16:15 Pulse Rate 107 H 10/29/18 16:15 Respiratory Rate 18 10/29/18 16:15 Blood Pressure 125/86 10/29/18 16:15 O2 Sat by Pulse Oximetry (%) 96 10/29/18 09:00 Constitutional: Yes: No Distress, Calm Eyes: Yes: Tearing HENT: Yes: Atraumatic Neck: Yes: WNL Cardiovascular: Yes: Regular Rate and Rhythm ...Rectal Exam: Yes: Deferred Neurological: Yes: Alert, Other (right sided facial twitching) Labs: CBC, BMP 10/28/18 07:30 10/28/18 07:30 Hospitalist Encounter Assessment: Patient is a 68 y/o female with past medical history of MS, neurogenic bladder, suprapubic catheter, anemia, recurrent drug resistant UTI. Patient was brought to [facility] ER from [facility] for MRSA in . Patient has also been experiencing AMS, fever, and increased lethargy. Patient is non-verbal Called to see patient by primary RN for right facial twitching and right hand tremors noted this morning that are intermittent, but now are more noticeable. on exam, patient is awake, alert in no acute distress. neuro: awake, alert, non verbal. noted to have facial tics with rapid right eye blinking and right cheek twitching. She appears comfortable at rest. no other tremors noted. she has facial symmetry, no facial droop. plan: repeat cbc, cmp, mag. monitor electrolytes She was awake after the twitching subsided and no other signs of tremors. right twitching lasted a few seconds, then subsided. consider neuro consult if facial tics continue or worsen. patient was on meropenem which has been stopped today. 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
[2018-10-29 19:43] LABS: BASO % 1.4 % (0-2.0); EOS % 0.9 % (0-4.5); HEMATOCRIT 33.3 % (32.4-45.2); HEMOGLOBIN 10.7 GM/dL (10.7-15.3); LYMPH % 39.7 % (8-40); MCH 27.9 pg (25.7-33.7); MCHC 32.1 g/dl (32.0-36.0); MEAN CELL VOLUME 86.9 fl (80-96); MEAN PLT VOLUME 8.7 fl (7.5-11.1); MONO % 4.3 % (3.8-10.2); NEUT % 53.7 % (42.8-82.8); PLATELET COUNT 410 K/MM3 (134-434); RBC 3.83 M/mm3 (3.60-5.2); RDW 16.9 % (11.6-15.6); WHITE BLOOD COUNT 8.4 K/mm3 (4.0-10.0)
[2018-10-29 20:01] LABS: ALBUMIN 2.3 g/dl (3.4-5.0); BILIRUBIN,TOTAL 0.2 mg/dL (0.2-1); CALCIUM 8.8 mg/dL (8.5-10.1); CREATININE 0.6 mg/dL (0.55-1.3); MAGNESIUM 2.5 mg/dL (1.8-2.4); POTASSIUM 3.9 mmol/L (3.5-5.1); TOT PROT 6.9 g/dl (6.4-8.2)
[2018-10-29] MEDS: SENNOSIDES 8.6MG TABLET (FP) PO SCH (21:26)
[2018-10-29] MEDS: DOCUSATE SODIUM 100 MG CAPSULE (FP) PO SCH (21:32)
[2018-10-29] MEDS: ACETAMINOPHEN 325 MG TABLET (FP) PO PRN (22:28)
[2018-10-29] MEDS ORDERED: LORazepam 2 MG/ML SDV VIAL IVPUSH ONE (23:02)
[2018-10-29] MEDS ORDERED: LORazepam 2 MG/ML SDV VIAL ONE (23:07)
[2018-10-30] MEDS ORDERED: MEROPENEM 1 GM in DEXTROSE 5%-WATER 100 ML IVPB ONE (00:23)
[2018-10-30] MEDS ORDERED: ALBUTEROL SO4 0.083% IH SOL 2.5 MG/3 ML VIAL.NEB. NEB ONE (00:45)
[2018-10-30] MEDS: ALBUTEROL SO4 2.5/IPRATROPIUM 0.5 INH SOL 3 ML VIAL.NEB. NEB PRN (00:45)
[2018-10-30] MEDS ORDERED: MEROPENEM 1 GM VIAL (RESTRICTED TO ID) IVPB ONE (00:54)
--- NOTE | 2018-10-30 00:54 | PN ---
Progress Note (short form) - Note Progress Note: Approached by Nurse because patient was dyspneic. Was being treated for PNA. Abx D/kyrie yesterday. Patient nonverbal at baseline. s/p 2mg Ativan for R eye twitching. Asleep and responsive to sternal rub. Vitals: Febrile 101 120 HR BP 140/80 Saturating 90% on 2L Sepsis workup: Blood cultures Urine cultures Lactic acid CXR 1x IV Meropenem 1gm
[2018-10-30] MEDS ORDERED: DEXTROSE 5%-WATER 100 ML IVPB ONE (00:55)
[2018-10-30] MEDS: LEVOTHYROXINE NA 100 MCG TABLET (FP) PO SCH (07:03)
[2018-10-30 07:34] LABS: HEMATOCRIT 32.8 % (32.4-45.2); HEMOGLOBIN 10.8 GM/dL (10.7-15.3); MCH 28.6 pg (25.7-33.7); MCHC 32.9 g/dl (32.0-36.0); MEAN CELL VOLUME 87.1 fl (80-96); MEAN PLT VOLUME 8.7 fl (7.5-11.1); PLATELET COUNT 468 K/MM3 (134-434); RBC 3.77 M/mm3 (3.60-5.2); RDW 16.7 % (11.6-15.6); WHITE BLOOD COUNT 9.1 K/mm3 (4.0-10.0)
[2018-10-30 07:55] LABS: CALCIUM 8.9 mg/dL (8.5-10.1); CREATININE 0.3 mg/dL (0.55-1.3); MAGNESIUM 2.7 mg/dL (1.8-2.4); POTASSIUM 4.3 mmol/L (3.5-5.1)
--- NOTE | 2018-10-30 09:16 | PN ---
Progress Note, Physician History of Present Illness: events noted seizure event noted now patient has got ativan - Current Medication List Current Medications: Active Medications Acetaminophen (Tylenol -) 650 mg PO Q4H PRN PRN Reason: FEVER Last Admin: 10/29/18 22:28 Dose: 650 mg Albuterol/Ipratropium (Duoneb -) 1 amp NEB Q4H PRN PRN Reason: SHORTNESS OF BREATH Last Admin: 10/30/18 00:45 Dose: 1 amp Ascorbic Acid (Vitamin C -) 500 mg PO DAILY [facility] Last Admin: 10/29/18 10:35 Dose: 500 mg Bisacodyl (Dulcolax Suppository -) 10 mg RC DAILY [facility] Last Admin: 10/29/18 10:35 Dose: Not Given Calcium Carbonate/Cholecalciferol (Os-Mikie 500+D -) 1 tab PO DAILY [facility] Last Admin: 10/29/18 10:36 Dose: 1 tab Cholecalciferol (Vitamin D3 -) 1,000 unit PO DAILY [facility] Last Admin: 10/29/18 10:35 Dose: 1,000 unit Collagenase (Santyl -) 1 applic TP DAILY [facility]; Protocol Last Admin: 10/29/18 14:36 Dose: 1 applic Docusate Sodium (Colace -) 100 mg PO HS [facility] Last Admin: 10/29/18 21:32 Dose: 100 mg Enoxaparin Sodium (Lovenox -) 40 mg SQ DAILY [facility] Last Admin: 10/29/18 10:37 Dose: 40 mg Ferrous Sulfate (Feosol -) 325 mg PO DAILY [facility] Last Admin: 10/29/18 10:35 Dose: 325 mg Fluconazole (Diflucan 200 Mg/D5w Premixed Ivpb -) 100 mls @ 100 mls/hr IVPB DAILY [facility] Last Admin: 10/29/18 10:36 Dose: 100 mls/hr Lactobacillus Acidophilus (Bacid -) 1 tab PO DAILY [facility] Last Admin: 10/29/18 10:36 Dose: 1 tab Levothyroxine Sodium (Synthroid -) 100 mcg PO 0700 [facility] Last Admin: 10/30/18 07:03 Dose: Not Given Multivitamins/Minerals/Vitamin C (Tab-A-Vit -) 1 tab PO DAILY [facility] Last Admin: 10/29/18 10:35 Dose: 1 tab Non-Formulary Medication (Interferon Beta-1a [Avonex]) 30 mcg IM WEEKLY [facility] Pantoprazole Sodium (Protonix -) 40 mg PO DAILY [facility] Last Admin: 10/29/18 10:36 Dose: 40 mg Polyethylene Glycol (Miralax (For Daily Use) -) 17 gm PO BID [facility] Last Admin: 10/29/18 21:32 Dose: 17 grams Senna (Senna -) 2 tab PO HS [facility] Last Admin: 10/29/18 21:26 Dose: 2 tab Sodium Phosphate (Fleet Adult Rectal Enema -) 133 ml RC PRN PRN PRN Reason: CONSTIPATION Tamoxifen Citrate (Tamoxifen Citrate) 20 mg PO DAILY [facility] Last Admin: 10/29/18 10:37 Dose: 20 mg Zinc Sulfate (Orazinc -) 220 mg PO BID [facility] Last Admin: 10/29/18 21:26 Dose: 220 mg - Objective Vital Signs: Vital Signs Temperature 98.7 F 10/30/18 07:05 Pulse Rate 122 H 10/30/18 07:05 Respiratory Rate 18 10/30/18 07:05 Blood Pressure 110/72 10/30/18 07:05 O2 Sat by Pulse Oximetry (%) 96 10/29/18 21:00 Constitutional: Yes: No Distress, Calm Cardiovascular: Yes: S1, S2 Respiratory: Yes: Regular, CTA Bilaterally Gastrointestinal: Yes: Normal Bowel Sounds, Soft Genitourinary: Yes: Chopra Present Musculoskeletal: Yes: WNL Extremities: Yes: Other Neurological: Yes: Other Labs: CBC, BMP 10/30/18 06:10 10/30/18 06:10 INR, PTT INR 1.08 (0.83-1.09) 10/22/18 07:00 Assessment/Plan Problem List - Problems (1) Sepsis Code(s): A41.9 - SEPSIS, UNSPECIFIED ORGANISM (2) UTI (urinary tract infection) due to urinary indwelling catheter Code(s): T83.51XA - ; N39.0 - URINARY TRACT INFECTION, SITE NOT SPECIFIED (3) TANISHA (acute kidney injury) Code(s): N17.9 - ACUTE KIDNEY FAILURE, UNSPECIFIED (4) Breast CA Code(s): C50.919 - MALIGNANT NEOPLASM OF UNSP SITE OF UNSPECIFIED FEMALE BREAST (5) 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 Code(s): G35 - MULTIPLE SCLEROSIS; R53.2 - FUNCTIONAL QUADRIPLEGIA (6) GERD (gastroesophageal reflux disease) Code(s): K21.9 - GASTRO-ESOPHAGEAL REFLUX DISEASE WITHOUT ESOPHAGITIS Qualifiers: Esophagitis presence: without esophagitis Qualified Code(s): K21.9 - Gastro -esophageal reflux disease without esophagitis (7) Hydronephrosis Code(s): N13.30 - UNSPECIFIED HYDRONEPHROSIS Qualifiers: Hydronephrosis type: with renal and ureteral calculous obstruction Qualified Code(s): N13.2 - Hydronephrosis with renal and ureteral calculous obstruction (8) Hypothyroid Code(s): E03.9 - HYPOTHYROIDISM, UNSPECIFIED (9) Nephrolithiasis Code(s): N20.0 - CALCULUS OF KIDNEY (10) Neurogenic bladder Code(s): N31.9 - NEUROMUSCULAR DYSFUNCTION OF BLADDER, UNSPECIFIED Assessment/Plan Complicated UTI Sepsis Leukocytosis Neurogenic bladder s/p SPC MS Dementia plan will continue holding medicine neurology on case continue monitoring rest as per the team
--- NOTE | 2018-10-30 09:28 | CONSULT ---
Consult - text type - Consultation Consultation Note: NEUROLOGY CONSULT GREATLY APPRECIATED: Events reviewed and discussed with nursing staff and Maxi Dunn PA. Video of right sided movt's reviewed. Patient examined. [facility] 68 [facility] Advanced MS, neurogenic bladder, anemia, recurrent UTIs, dysphagia, hypothyroidism. Meds: levothyroxine, tamoxifen, ferrous sulfate, avonex 30 mcg IM q weekly, pantoprazole. Admitted from [place] on 10/21/18 with fever and confusion found with complicated UTI and + MRSA. Recently dc'd from [facility] for urosepsis 10/11/18. Was treated with meropenam and fluconazole, however fevers persistent and antibiotics on hold today. Yesterday noted with intermittent "twitching" of R arm and R eye. According to RN was seizing intermittently since last night until this AM. s/p Ativan this AM. Loaded with Levetiracetam 1 gm IV. Has remained poorly responsive all day. According to GENERATOR MAN was interacting and eating yesterday WBC 15.6-> 9.1 TSH 1.94 UA WBC 10/21/18 = 4146. Recurrent blood and urine Cx reveal "yeast" JORGE: Neg L'Hermittes. L knee contracture. Suprapubic catheter. PICC in LUE. On o2 via N/C NEURO: Eyes open. Non-verbal to voice or tactile stimuli. Follows no commands, + glabella, snout, grasps. Early contractures of the arms/elbows. + Corneals. OD exotropia. PER3mm and fixed. + Spontaneous respirations. Intermittent twitching of R eye and R arm-resolved since this AM. Reflexes normal in arms, reduced in legs. L Babinski. Decreased pinch in all fours Impression: Severe B/L Cerebral Dysfunction (OMS, likely chronic) New R sided partial motor seizures Advanced MS by history All worsened by Toxic-Metabolic Encephalopathy (Urosepsis, PNA, etc), Post-ictal state Suggest: Load with 1000 mg leveteracitam IVP, then 500 mg IVP q12H Head CT (C-) R/O New CVA Await repeat UA, C & S; Blood cultures to R/O Sepsis. Low threshold to treat Avoid sedative-hypnotics until more awake and alert. Thank you very much, Moi Alarcon MD
[2018-10-30] MEDS ORDERED: levETIRAcetam 500 MG/5 ML INJECTION VIAL IVPB ONE (09:38)
[2018-10-30] MEDS: MULTIVITAMINS (DAILY MVI) TABLET (FP) PO SCH (10:13)
[2018-10-30] MEDS: POLYETHYLENE GLYCOL 3350 119 GM BTL PO SCH ×2 (10:13→21:35)
[2018-10-30] MEDS: CALCIUM 500MG/VIT-D 200 UNITS COMBO TABLET (FP) PO SCH (10:13)
[2018-10-30] MEDS: ZINC SULFATE 220 MG CAPSULE (FP) PO SCH ×2 (10:13→21:35)
[2018-10-30] MEDS: LACTOBACILLUS ACIDOPHILUS 1 TABLET PO SCH (10:13)
[2018-10-30] MEDS: PANTOPRAZOLE 40 MG TABLET (FP) PO SCH (10:13)
[2018-10-30] MEDS: FERROUS SO4 325 MG TABLET (FP) PO SCH (10:13)
[2018-10-30] MEDS: CHOLECALCIFEROL (VIT D3) 1,000 UNIT (25 MCG) TABLET PO SCH (10:14)
[2018-10-30] MEDS: ASCORBIC ACID 500 MG TABLET (FP) PO SCH (10:14)
[2018-10-30] MEDS: TAMOXIFEN CITRATE 10 MG TABLET PO SCH (10:14)
[2018-10-30] MEDS: BISACODYL 10 MG SUPP.RECT RC SCH (10:27)
[2018-10-30] MEDS: ENOXAPARIN NA (PORCINE) 40 MG/0.4 ML DISP.SYRIN SQ SCH (10:27)
[2018-10-30] MEDS: COLLAGENASE CLOSTRIDIUM HIST. 30 GRAMS TUBE TP SCH (10:30)
[2018-10-30] MEDS: FLUCONAZOLE 200 MG/D5W 100 ML IVPB SCH (10:59)
--- NOTE | 2018-10-30 14:21 | PN ---
Progress Note, [employer] - Note Progress Note: Yesterday noted with intermittent "twitching" of R arm and R eye Ativan given this AM. Selected Entries 10/28/18 10/28/18 10/28/18 02:00 06:00 10:00 Breakfast 75% Lunch Supper Temperature 98.8 F 97.8 F 98.6 F 10/28/18 10/28/18 10/28/18 18:30 19:15 22:45 Breakfast Lunch Supper 75% Temperature 97.6 F 101.4 F H 10/29/18 10/29/18 10/29/18 02:00 06:00 10:00 Breakfast 75% Lunch Supper Temperature 99.8 F H 99.8 F H 98 F 10/29/18 10/29/18 10/29/18 14:00 16:15 18:30 Breakfast Lunch 75% Supper 50% Temperature 98.6 F 99.3 F 10/29/18 10/30/18 10/30/18 22:20 02:24 07:05 Breakfast Lunch Supper Temperature 101.0 F H 97.9 F 98.7 F 10/30/18 10/30/18 14:08 14:09 Breakfast 0 Lunch 0 Supper Temperature 97.2 F L Laboratory Tests 10/26/18 10/28/18 10/29/18 07:00 07:30 19:20 WBC 14.9 H 11.4 H 8.4 10/30/18 06:10 WBC 9.1 npo today. Altered NIR.
--- NOTE | 2018-10-30 15:02 | PN ---
Progress Note, Physician Chief Complaint: FACIAL TWITCHING NOTED PERSISTENT FEVERS - Current Medication List Current Medications: Active Medications Acetaminophen (Tylenol -) 650 mg PO Q4H PRN PRN Reason: FEVER Last Admin: 10/29/18 22:28 Dose: 650 mg Albuterol/Ipratropium (Duoneb -) 1 amp NEB Q4H PRN PRN Reason: SHORTNESS OF BREATH Last Admin: 10/30/18 00:45 Dose: 1 amp Ascorbic Acid (Vitamin C -) 500 mg PO DAILY [facility] Last Admin: 10/30/18 10:14 Dose: Not Given Bisacodyl (Dulcolax Suppository -) 10 mg RC DAILY [facility] Last Admin: 10/30/18 10:27 Dose: Not Given Calcium Carbonate/Cholecalciferol (Os-Mikie 500+D -) 1 tab PO DAILY [facility] Last Admin: 10/30/18 10:13 Dose: Not Given Cholecalciferol (Vitamin D3 -) 1,000 unit PO DAILY [facility] Last Admin: 10/30/18 10:14 Dose: Not Given Collagenase (Santyl -) 1 applic TP DAILY [facility]; Protocol Last Admin: 10/30/18 10:30 Dose: 1 applic Docusate Sodium (Colace -) 100 mg PO HS [facility] Last Admin: 10/29/18 21:32 Dose: 100 mg Enoxaparin Sodium (Lovenox -) 40 mg SQ DAILY [facility] Last Admin: 10/30/18 10:27 Dose: 40 mg Ferrous Sulfate (Feosol -) 325 mg PO DAILY [facility] Last Admin: 10/30/18 10:13 Dose: Not Given Fluconazole (Diflucan 200 Mg/D5w Premixed Ivpb -) 100 mls @ 100 mls/hr IVPB DAILY [facility] Last Admin: 10/30/18 10:59 Dose: 100 mls/hr Lactobacillus Acidophilus (Bacid -) 1 tab PO DAILY [facility] Last Admin: 10/30/18 10:13 Dose: Not Given Levetiracetam (Keppra Injection -) 500 mg IVPB BID [facility] Levothyroxine Sodium (Synthroid -) 100 mcg PO 0700 [facility] Last Admin: 10/30/18 07:03 Dose: Not Given Multivitamins/Minerals/Vitamin C (Tab-A-Vit -) 1 tab PO DAILY [facility] Last Admin: 10/30/18 10:13 Dose: Not Given Non-Formulary Medication (Interferon Beta-1a [Avonex]) 30 mcg IM WEEKLY [facility] Pantoprazole Sodium (Protonix -) 40 mg PO DAILY [facility] Last Admin: 10/30/18 10:13 Dose: Not Given Polyethylene Glycol (Miralax (For Daily Use) -) 17 gm PO BID [facility] Last Admin: 10/30/18 10:13 Dose: Not Given Senna (Senna -) 2 tab PO HS [facility] Last Admin: 10/29/18 21:26 Dose: 2 tab Sodium Phosphate (Fleet Adult Rectal Enema -) 133 ml RC PRN PRN PRN Reason: CONSTIPATION Tamoxifen Citrate (Tamoxifen Citrate) 20 mg PO DAILY [facility] Last Admin: 10/30/18 10:14 Dose: Not Given Zinc Sulfate (Orazinc -) 220 mg PO BID [facility] Last Admin: 10/30/18 10:13 Dose: Not Given - Objective Vital Signs: Vital Signs Temperature 97.2 F L 10/30/18 14:09 Pulse Rate 92 H 10/30/18 14:09 Respiratory Rate 22 H 10/30/18 14:09 Blood Pressure 108/70 10/30/18 14:09 O2 Sat by Pulse Oximetry (%) 96 10/29/18 21:00 Constitutional: Yes: Mild Distress Cardiovascular: Yes: Regular Rate and Rhythm Respiratory: Yes: Diminished Gastrointestinal: Yes: Soft Genitourinary: Yes: Chopra Present, Incontinence Musculoskeletal: Yes: Muscle Weakness Integumentary: Yes: Other Wound/Incision: Yes: Dressing Dry and Intact Neurological: Yes: Seizure Labs: CBC, BMP 10/30/18 06:10 10/30/18 06:10 INR, PTT INR 1.08 (0.83-1.09) 10/22/18 07:00 Problem List - Problems (1) Sepsis Code(s): A41.9 - SEPSIS, UNSPECIFIED ORGANISM (2) UTI (urinary tract infection) due to urinary indwelling catheter Code(s): T83.51XA - ; N39.0 - URINARY TRACT INFECTION, SITE NOT SPECIFIED (3) TANISHA (acute kidney injury) Code(s): N17.9 - ACUTE KIDNEY FAILURE, UNSPECIFIED (4) Abnormal CT scan Code(s): R93.8 - ABNORMAL FINDINGS ON DIAGNOSTIC IMAGING OF APOORVA * DO NOT USE * (5) Anemia Code(s): D64.9 - ANEMIA, UNSPECIFIED (6) Breast CA Code(s): C50.919 - MALIGNANT NEOPLASM OF UNSP SITE OF UNSPECIFIED FEMALE BREAST (7) Decubitus ulcer Code(s): L89.90 - PRESSURE ULCER OF UNSPECIFIED SITE, UNSPECIFIED STAGE (8) 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 Code(s): G35 - MULTIPLE SCLEROSIS; R53.2 - FUNCTIONAL QUADRIPLEGIA (9) Aphasia Code(s): R47.01 - APHASIA (10) Dysphagia Code(s): R13.10 - DYSPHAGIA, UNSPECIFIED Qualifiers: Dysphagia type: oropharyngeal phase Qualified Code(s): R13.12 - Dysphagia, oropharyngeal phase (11) Seizure Code(s): R56.9 - UNSPECIFIED CONVULSIONS Assessment/Plan NEUROLOGY KENNY KINGSTON STARTED IV IV ABX FOR UROSEPSIS D/W ID DR LAURENT PERSISTNT FEVERS ON MERIPENAM SACRAL ULCER STAGE 2-3 ADDING COLLAGENASE ASPIRATION PNEUMONIA ON ABX AND NEBS DYSPHAGIA PRECAUTIONS REPLETE KCL ADVANCE DIRECTIVES NEED TO D/W FAMILY PALLIATIVE CARE CONSULT
[2018-10-30] MEDS: levETIRAcetam 500 MG/5 ML INJECTION VIAL IVPB SCH (21:33)
[2018-10-30] MEDS: DOCUSATE SODIUM 100 MG CAPSULE (FP) PO SCH (21:34)
[2018-10-30] MEDS: SENNOSIDES 8.6MG TABLET (FP) PO SCH (21:35)
[2018-10-31] MEDS: LEVOTHYROXINE NA 100 MCG TABLET (FP) PO SCH (07:41)
[2018-10-31 07:44] LABS: ALBUMIN 2.6 g/dl (3.4-5.0); BILIRUBIN,TOTAL 0.4 mg/dL (0.2-1); CALCIUM 9.1 mg/dL (8.5-10.1); CREATININE 0.2 mg/dL (0.55-1.3); MAGNESIUM 2.8 mg/dL (1.8-2.4); POTASSIUM 4.6 mmol/L (3.5-5.1); TOT PROT 7.1 g/dl (6.4-8.2)
[2018-10-31 07:53] LABS: HEMATOCRIT 31.9 % (32.4-45.2); HEMOGLOBIN 10.5 GM/dL (10.7-15.3); MCH 28.8 pg (25.7-33.7); MCHC 33.1 g/dl (32.0-36.0); MEAN PLT VOLUME 8.7 fl (7.5-11.1); PLATELET COUNT 464 K/MM3 (134-434); RBC 3.66 M/mm3 (3.60-5.2); RDW 16.7 % (11.6-15.6); WHITE BLOOD COUNT 9.5 K/mm3 (4.0-10.0)
--- NOTE | 2018-10-31 08:43 | PN ---
Progress Note, Physician History of Present Illness: clinically looks stable still eyes twitching - Current Medication List Current Medications: Active Medications Acetaminophen (Tylenol -) 650 mg PO Q4H PRN PRN Reason: FEVER Last Admin: 10/29/18 22:28 Dose: 650 mg Albuterol/Ipratropium (Duoneb -) 1 amp NEB Q4H PRN PRN Reason: SHORTNESS OF BREATH Last Admin: 10/30/18 00:45 Dose: 1 amp Ascorbic Acid (Vitamin C -) 500 mg PO DAILY [facility] Last Admin: 10/30/18 10:14 Dose: Not Given Bisacodyl (Dulcolax Suppository -) 10 mg RC DAILY [facility] Last Admin: 10/30/18 10:27 Dose: Not Given Calcium Carbonate/Cholecalciferol (Os-Mikie 500+D -) 1 tab PO DAILY [facility] Last Admin: 10/30/18 10:13 Dose: Not Given Cholecalciferol (Vitamin D3 -) 1,000 unit PO DAILY [facility] Last Admin: 10/30/18 10:14 Dose: Not Given Collagenase (Santyl -) 1 applic TP DAILY [facility]; Protocol Last Admin: 10/30/18 10:30 Dose: 1 applic Docusate Sodium (Colace -) 100 mg PO HS [facility] Last Admin: 10/30/18 21:34 Dose: Not Given Enoxaparin Sodium (Lovenox -) 40 mg SQ DAILY [facility] Last Admin: 10/30/18 10:27 Dose: 40 mg Ferrous Sulfate (Feosol -) 325 mg PO DAILY [facility] Last Admin: 10/30/18 10:13 Dose: Not Given Fluconazole (Diflucan 200 Mg/D5w Premixed Ivpb -) 100 mls @ 100 mls/hr IVPB DAILY [facility] Last Admin: 10/30/18 10:59 Dose: 100 mls/hr Lactobacillus Acidophilus (Bacid -) 1 tab PO DAILY [facility] Last Admin: 10/30/18 10:13 Dose: Not Given Levetiracetam (Keppra Injection -) 500 mg IVPB BID [facility] Last Admin: 10/30/18 21:33 Dose: 500 mg Levothyroxine Sodium (Synthroid -) 100 mcg PO 0700 [facility] Last Admin: 10/31/18 07:41 Dose: Not Given Multivitamins/Minerals/Vitamin C (Tab-A-Vit -) 1 tab PO DAILY [facility] Last Admin: 10/30/18 10:13 Dose: Not Given Non-Formulary Medication (Interferon Beta-1a [Avonex]) 30 mcg IM WEEKLY [facility] Pantoprazole Sodium (Protonix -) 40 mg PO DAILY [facility] Last Admin: 10/30/18 10:13 Dose: Not Given Polyethylene Glycol (Miralax (For Daily Use) -) 17 gm PO BID [facility] Last Admin: 10/30/18 21:35 Dose: Not Given Senna (Senna -) 2 tab PO HS [facility] Last Admin: 10/30/18 21:35 Dose: Not Given Sodium Phosphate (Fleet Adult Rectal Enema -) 133 ml RC PRN PRN PRN Reason: CONSTIPATION Tamoxifen Citrate (Tamoxifen Citrate) 20 mg PO DAILY [facility] Last Admin: 10/30/18 10:14 Dose: Not Given Zinc Sulfate (Orazinc -) 220 mg PO BID [facility] Last Admin: 10/30/18 21:35 Dose: Not Given - Objective Vital Signs: Vital Signs Temperature 98.4 F 10/31/18 06:00 Pulse Rate 82 10/31/18 06:00 Respiratory Rate 18 10/31/18 06:00 Blood Pressure 120/80 10/31/18 06:00 O2 Sat by Pulse Oximetry (%) 99 10/30/18 21:00 Constitutional: Yes: No Distress, Calm Cardiovascular: Yes: S1, S2 Respiratory: Yes: Regular, CTA Bilaterally Gastrointestinal: Yes: Normal Bowel Sounds, Soft Genitourinary: Yes: Chopra Present Musculoskeletal: Yes: WNL Extremities: Yes: WNL Neurological: Yes: Other Labs: CBC, BMP 10/31/18 06:48 10/31/18 06:51 INR, PTT INR 1.08 (0.83-1.09) 10/22/18 07:00 Assessment/Plan Problem List - Problems (1) Sepsis Code(s): A41.9 - SEPSIS, UNSPECIFIED ORGANISM (2) UTI (urinary tract infection) due to urinary indwelling catheter Code(s): T83.51XA - ; N39.0 - URINARY TRACT INFECTION, SITE NOT SPECIFIED (3) TANISHA (acute kidney injury) Code(s): N17.9 - ACUTE KIDNEY FAILURE, UNSPECIFIED (4) Breast CA Code(s): C50.919 - MALIGNANT NEOPLASM OF UNSP SITE OF UNSPECIFIED FEMALE BREAST (5) 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 Code(s): G35 - MULTIPLE SCLEROSIS; R53.2 - FUNCTIONAL QUADRIPLEGIA (6) GERD (gastroesophageal reflux disease) Code(s): K21.9 - GASTRO-ESOPHAGEAL REFLUX DISEASE WITHOUT ESOPHAGITIS Qualifiers: Esophagitis presence: without esophagitis Qualified Code(s): K21.9 - Gastro -esophageal reflux disease without esophagitis (7) Hydronephrosis Code(s): N13.30 - UNSPECIFIED HYDRONEPHROSIS Qualifiers: Hydronephrosis type: with renal and ureteral calculous obstruction Qualified Code(s): N13.2 - Hydronephrosis with renal and ureteral calculous obstruction (8) Hypothyroid Code(s): E03.9 - HYPOTHYROIDISM, UNSPECIFIED (9) Nephrolithiasis Code(s): N20.0 - CALCULUS OF KIDNEY (10) Neurogenic bladder Code(s): N31.9 - NEUROMUSCULAR DYSFUNCTION OF BLADDER, UNSPECIFIED Assessment/Plan Complicated UTI Sepsis Leukocytosis Neurogenic bladder s/p SPC MS Dementia plan continue as per neuro nutrition rest as per the team
--- NOTE | 2018-10-31 10:25 | PN ---
Progress Note, Physician Chief Complaint: Sepsis Suprapubic Catheter UTI MS History of Present Illness: Previous notes and events reviewed awake, non verbal facial twitching noted currently afebrile poor appetite - Current Medication List Current Medications: Active Medications Acetaminophen (Tylenol -) 650 mg PO Q4H PRN PRN Reason: FEVER Last Admin: 10/29/18 22:28 Dose: 650 mg Albuterol/Ipratropium (Duoneb -) 1 amp NEB Q4H PRN PRN Reason: SHORTNESS OF BREATH Last Admin: 10/30/18 00:45 Dose: 1 amp Ascorbic Acid (Vitamin C -) 500 mg PO DAILY [facility] Last Admin: 10/30/18 10:14 Dose: Not Given Bisacodyl (Dulcolax Suppository -) 10 mg RC DAILY [facility] Last Admin: 10/30/18 10:27 Dose: Not Given Calcium Carbonate/Cholecalciferol (Os-Mikie 500+D -) 1 tab PO DAILY [facility] Last Admin: 10/30/18 10:13 Dose: Not Given Cholecalciferol (Vitamin D3 -) 1,000 unit PO DAILY [facility] Last Admin: 10/30/18 10:14 Dose: Not Given Collagenase (Santyl -) 1 applic TP DAILY [facility]; Protocol Last Admin: 10/30/18 10:30 Dose: 1 applic Docusate Sodium (Colace -) 100 mg PO HS [facility] Last Admin: 10/30/18 21:34 Dose: Not Given Enoxaparin Sodium (Lovenox -) 40 mg SQ DAILY [facility] Last Admin: 10/30/18 10:27 Dose: 40 mg Ferrous Sulfate (Feosol -) 325 mg PO DAILY [facility] Last Admin: 10/30/18 10:13 Dose: Not Given Fluconazole (Diflucan 200 Mg/D5w Premixed Ivpb -) 100 mls @ 100 mls/hr IVPB DAILY [facility] Last Admin: 10/30/18 10:59 Dose: 100 mls/hr Lactobacillus Acidophilus (Bacid -) 1 tab PO DAILY [facility] Last Admin: 10/30/18 10:13 Dose: Not Given Levetiracetam (Keppra Injection -) 500 mg IVPB BID [facility] Last Admin: 10/30/18 21:33 Dose: 500 mg Levothyroxine Sodium (Synthroid -) 100 mcg PO 0700 [facility] Last Admin: 10/31/18 07:41 Dose: Not Given Multivitamins/Minerals/Vitamin C (Tab-A-Vit -) 1 tab PO DAILY [facility] Last Admin: 10/30/18 10:13 Dose: Not Given Non-Formulary Medication (Interferon Beta-1a [Avonex]) 30 mcg IM WEEKLY [facility] Pantoprazole Sodium (Protonix -) 40 mg PO DAILY [facility] Last Admin: 10/30/18 10:13 Dose: Not Given Pantoprazole Sodium (Protonix Iv) 40 mg IVPUSH DAILY [facility] Polyethylene Glycol (Miralax (For Daily Use) -) 17 gm PO BID [facility] Last Admin: 10/30/18 21:35 Dose: Not Given Senna (Senna -) 2 tab PO HS [facility] Last Admin: 10/30/18 21:35 Dose: Not Given Sodium Phosphate (Fleet Adult Rectal Enema -) 133 ml RC PRN PRN PRN Reason: CONSTIPATION Tamoxifen Citrate (Tamoxifen Citrate) 20 mg PO DAILY [facility] Last Admin: 10/30/18 10:14 Dose: Not Given Zinc Sulfate (Orazinc -) 220 mg PO BID [facility] Last Admin: 10/30/18 21:35 Dose: Not Given - Objective Vital Signs: Vital Signs Temperature 98.4 F 10/31/18 06:00 Pulse Rate 82 10/31/18 06:00 Respiratory Rate 18 10/31/18 06:00 Blood Pressure 120/80 10/31/18 06:00 O2 Sat by Pulse Oximetry (%) 99 10/30/18 21:00 Constitutional: Yes: Mild Distress Eyes: Yes: Conjunctiva Clear HENT: Yes: Atraumatic Cardiovascular: Yes: Tachycardia Respiratory: Yes: Diminished Gastrointestinal: Yes: Normal Bowel Sounds, Soft Genitourinary: Yes: Incontinence, Other (suprapubic catheter) Musculoskeletal: Yes: Muscle Weakness Edema: No Neurological: Yes: Alert, Pre-Existing Deficit Psychiatric: Yes: Alert Labs: CBC, BMP 10/31/18 06:48 10/31/18 06:51 INR, PTT INR 1.08 (0.83-1.09) 10/22/18 07:00 Microbiology 10/30/18 00:40 Urine - Urine Chopra Urine Culture - Preliminary 10/30/18 00:20 Blood - Picc Line Blood Culture - Preliminary NO GROWTH OBTAINED AFTER 24 HOURS, INCUBATION TO CONTINUE FOR 4 DAYS. 10/30/18 00:35 Blood - Picc Line Blood Culture - Preliminary NO GROWTH OBTAINED AFTER 24 HOURS, INCUBATION TO CONTINUE FOR 4 DAYS. 10/27/18 18:45 Blood - Peripheral Venous Blood Culture - Preliminary NO GROWTH OBTAINED AFTER 72 HOURS, INCUBATION TO CONTINUE FOR 2 DAYS. 10/27/18 18:20 Blood - Peripheral Venous Blood Culture - Preliminary NO GROWTH OBTAINED AFTER 72 HOURS, INCUBATION TO CONTINUE FOR 2 DAYS. 10/27/18 19:27 Urine - Urine Suprapubic Urine Culture - Final Yeast Like Organism 10/21/18 10:00 Blood - Peripheral Venous Blood Culture - Final NO GROWTH AFTER 5 DAYS INCUBATION 10/21/18 10:00 Blood - Peripheral Venous Blood Culture - Final NO GROWTH AFTER 5 DAYS INCUBATION 10/21/18 10:45 Urine - Urine Clean Catch Urine Culture - Final Yeast Like Organism Problem List - Problems (1) Sepsis Assessment/Plan: -UC yeast like organism -BC neg -CXR shows left base aerated with persistent residual infiltrate or atelectasis -ID on board -Meropenem on hold -Diflucan -WBC 9.5 -periodic temp spikes, currently afebrile -tylenol IVPB for temp >100F -pendign repeat UC Code(s): A41.9 - SEPSIS, UNSPECIFIED ORGANISM (2) 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 Assessment/Plan: -fall precaution -Avonex -aspiration precaution -BIOMEDICAL ELECTRONICS TECHNICIAN on board -MBS when medically stable Code(s): G35 - MULTIPLE SCLEROSIS; R53.2 - FUNCTIONAL QUADRIPLEGIA (3) GERD (gastroesophageal reflux disease) Assessment/Plan: -Pantoprazole Code(s): K21.9 - GASTRO-ESOPHAGEAL REFLUX DISEASE WITHOUT ESOPHAGITIS Qualifiers: Esophagitis presence: without esophagitis Qualified Code(s): K21.9 - Gastro -esophageal reflux disease without esophagitis (4) Hypothyroid Assessment/Plan: -Levothyroxine Code(s): E03.9 - HYPOTHYROIDISM, UNSPECIFIED (5) Neurogenic bladder Assessment/Plan: -suprapubic catheter -UC yeast like organism -Urology consult for leaking suprapubic catheter -Renal US reviewed Code(s): N31.9 - NEUROMUSCULAR DYSFUNCTION OF BLADDER, UNSPECIFIED (6) UTI (urinary tract infection) due to urinary indwelling catheter Assessment/Plan: -UC yeast like organism, repeat pending -ID on board -Merepenem on hold, continue Diflucan -WBC 9.5 Code(s): T83.51XA - ; N39.0 - URINARY TRACT INFECTION, SITE NOT SPECIFIED (7) Seizure Assessment/Plan: -Neurology on board -Head CT scan results reviewed -Levetiracetim 500mg IVPB q12h -seizure precaution Code(s): R56.9 - UNSPECIFIED CONVULSIONS Assessment/Plan see problem list dvt ppx palliative consult
[2018-10-31] MEDS ORDERED: PT OWN MED DRAWER 7, Y5N ONE ×3 (11:14→21:02)
[2018-10-31] MEDS: ENOXAPARIN NA (PORCINE) 40 MG/0.4 ML DISP.SYRIN SQ SCH (11:33)
[2018-10-31] MEDS: levETIRAcetam 500 MG/5 ML INJECTION VIAL IVPB SCH ×2 (11:33→21:44)
[2018-10-31] MEDS: PANTOPRAZOLE SODIUM 40 MG VIAL IVPUSH SCH (11:34)
[2018-10-31] MEDS: FLUCONAZOLE 200 MG/D5W 100 ML IVPB SCH (11:34)
--- NOTE | 2018-10-31 11:49 | PN ---
Progress Note, MOBILE SECURITY SPECIALIST - Note Progress Note: Seen bedside, active right facial twitches observed, making eye contact with me , non verbal. Sudden cessation with eyes gazed fixed to left, with no response to threat. Lasted 1-2 minutes. Pt then established eye contact again, and twitching resumed. Pt NPO including medication. High risk of aspiration. Guarded prognosis for functional improvement. Pt is a full code. Palliative care consulted.
[2018-10-31] MEDS: DEXTROSE 5%-NORMAL SALINE 1,000 ML IV SCH (12:00)
[2018-10-31] MEDS: POLYETHYLENE GLYCOL 3350 119 GM BTL PO SCH ×2 (12:16→21:48)
[2018-10-31] MEDS: FERROUS SO4 325 MG TABLET (FP) PO SCH (12:16)
[2018-10-31] MEDS: ZINC SULFATE 220 MG CAPSULE (FP) PO SCH ×2 (12:16→21:49)
[2018-10-31] MEDS: BISACODYL 10 MG SUPP.RECT RC SCH (12:16)
[2018-10-31] MEDS: LACTOBACILLUS ACIDOPHILUS 1 TABLET PO SCH (12:16)
[2018-10-31] MEDS: CALCIUM 500MG/VIT-D 200 UNITS COMBO TABLET (FP) PO SCH (12:17)
[2018-10-31] MEDS: MULTIVITAMINS (DAILY MVI) TABLET (FP) PO SCH (12:17)
[2018-10-31] MEDS: ASCORBIC ACID 500 MG TABLET (FP) PO SCH (12:17)
[2018-10-31] MEDS: TAMOXIFEN CITRATE 10 MG TABLET PO SCH (12:17)
[2018-10-31] MEDS: CHOLECALCIFEROL (VIT D3) 1,000 UNIT (25 MCG) TABLET PO SCH (12:18)
[2018-10-31] MEDS: PANTOPRAZOLE 40 MG TABLET (FP) PO SCH (12:19)
[2018-10-31] MEDS: COLLAGENASE CLOSTRIDIUM HIST. 30 GRAMS TUBE TP SCH (15:07)
[2018-10-31] MEDS ORDERED: INTERFERON BETA 30 MCG IM SCH (19:45)
[2018-10-31] MEDS: DOCUSATE SODIUM 100 MG CAPSULE (FP) PO SCH (21:48)
[2018-10-31] MEDS: SENNOSIDES 8.6MG TABLET (FP) PO SCH (21:49)
[2018-11-01] MEDS: LEVOTHYROXINE NA 100 MCG TABLET (FP) PO SCH (06:32)
[2018-11-01 07:18] LABS: HEMATOCRIT 31.6 % (32.4-45.2); HEMOGLOBIN 10.2 GM/dL (10.7-15.3); MCH 28.2 pg (25.7-33.7); MCHC 32.3 g/dl (32.0-36.0); MEAN CELL VOLUME 87.1 fl (80-96); MEAN PLT VOLUME 7.9 fl (7.5-11.1); PLATELET COUNT 408 K/MM3 (134-434); RBC 3.63 M/mm3 (3.60-5.2); RDW 16.8 % (11.6-15.6); WHITE BLOOD COUNT 5.8 K/mm3 (4.0-10.0)
[2018-11-01 07:51] LABS: ALBUMIN 2.5 g/dl (3.4-5.0); BILIRUBIN,TOTAL 0.3 mg/dL (0.2-1); CALCIUM 9.1 mg/dL (8.5-10.1); CREATININE 0.3 mg/dL (0.55-1.3); TOT PROT 6.7 g/dl (6.4-8.2)
[2018-11-01] MEDS: ALBUTEROL SO4 2.5/IPRATROPIUM 0.5 INH SOL 3 ML VIAL.NEB. NEB PRN (08:10)
--- NOTE | 2018-11-01 10:13 | PN ---
Progress Note, Physician Chief Complaint: DAUGHTER ISMAEL IN THE ROOM AND ON THE PHONE WITH SARITA OTHER DAUGHTER AND HCP. REVEREND BOUCHER ALSO IN ATTENDANCE. PATIENT IS APHASIC/DYSPHAGIA FEVERS - Current Medication List Current Medications: Active Medications Acetaminophen (Tylenol -) 650 mg PO Q4H PRN PRN Reason: FEVER Last Admin: 10/29/18 22:28 Dose: 650 mg Albuterol/Ipratropium (Duoneb -) 1 amp NEB Q4H PRN PRN Reason: SHORTNESS OF BREATH Last Admin: 11/01/18 08:10 Dose: 1 amp Ascorbic Acid (Vitamin C -) 500 mg PO DAILY [facility] Last Admin: 10/31/18 12:17 Dose: Not Given Bisacodyl (Dulcolax Suppository -) 10 mg RC DAILY [facility] Last Admin: 10/31/18 12:16 Dose: Not Given Calcium Carbonate/Cholecalciferol (Os-Mikie 500+D -) 1 tab PO DAILY [facility] Last Admin: 10/31/18 12:17 Dose: Not Given Cholecalciferol (Vitamin D3 -) 1,000 unit PO DAILY [facility] Last Admin: 10/31/18 12:18 Dose: Not Given Collagenase (Santyl -) 1 applic TP DAILY [facility]; Protocol Last Admin: 10/31/18 15:07 Dose: 1 applic Docusate Sodium (Colace -) 100 mg PO HS [facility] Last Admin: 10/31/18 21:48 Dose: Not Given Enoxaparin Sodium (Lovenox -) 40 mg SQ DAILY [facility] Last Admin: 10/31/18 11:33 Dose: 40 mg Ferrous Sulfate (Feosol -) 325 mg PO DAILY [facility] Last Admin: 10/31/18 12:16 Dose: Not Given Fluconazole (Diflucan 200 Mg/D5w Premixed Ivpb -) 100 mls @ 100 mls/hr IVPB DAILY [facility] Last Admin: 10/31/18 11:34 Dose: 100 mls/hr Dextrose/Sodium Chloride (D5-Ns -) 1,000 mls @ 42 mls/hr IV ASDIR [facility] Last Admin: 10/31/18 12:00 Dose: 42 mls/hr Lactobacillus Acidophilus (Bacid -) 1 tab PO DAILY [facility] Last Admin: 10/31/18 12:16 Dose: Not Given Levetiracetam (Keppra Injection -) 500 mg IVPB BID [facility] Last Admin: 10/31/18 21:44 Dose: 500 mg Levothyroxine Sodium (Synthroid -) 100 mcg PO 0700 [facility] Last Admin: 11/01/18 06:32 Dose: Not Given Multivitamins/Minerals/Vitamin C (Tab-A-Vit -) 1 tab PO DAILY [facility] Last Admin: 10/31/18 12:17 Dose: Not Given Non-Formulary Medication (Interferon Beta-1a [Avonex]) 30 mcg IM Tu [facility] Last Admin: 10/31/18 23:42 Dose: 30 mcg Pantoprazole Sodium (Protonix Iv) 40 mg IVPUSH DAILY [facility] Last Admin: 10/31/18 11:34 Dose: 40 mg Polyethylene Glycol (Miralax (For Daily Use) -) 17 gm PO BID [facility] Last Admin: 10/31/18 21:48 Dose: Not Given Senna (Senna -) 2 tab PO HS [facility] Last Admin: 10/31/18 21:49 Dose: Not Given Sodium Phosphate (Fleet Adult Rectal Enema -) 133 ml RC PRN PRN PRN Reason: CONSTIPATION Tamoxifen Citrate (Tamoxifen Citrate) 20 mg PO DAILY [facility] Last Admin: 10/31/18 12:17 Dose: Not Given Zinc Sulfate (Orazinc -) 220 mg PO BID [facility] Last Admin: 10/31/18 21:49 Dose: Not Given - Objective Vital Signs: Vital Signs Temperature 99 F 11/01/18 06:00 Pulse Rate 100 H 11/01/18 06:00 Respiratory Rate 18 11/01/18 06:00 Blood Pressure 110/68 11/01/18 06:00 O2 Sat by Pulse Oximetry (%) 97 10/31/18 09:00 Constitutional: Yes: Mild Distress Eyes: Yes: Other Cardiovascular: Yes: Tachycardia Respiratory: Yes: Diminished, On Nasal O2, Rhonchi Gastrointestinal: Yes: Soft Genitourinary: Yes: Chopra Present, Incontinence Musculoskeletal: Yes: Muscle Weakness Edema: No Integumentary: Yes: Other Neurological: Yes: Aphasia, Dysarthria, Seizure Labs: CBC, BMP 11/01/18 06:55 11/01/18 06:55 INR, PTT INR 1.08 (0.83-1.09) 10/22/18 07:00 Problem List - Problems (1) Sepsis Code(s): A41.9 - SEPSIS, UNSPECIFIED ORGANISM (2) UTI (urinary tract infection) due to urinary indwelling catheter Code(s): T83.51XA - ; N39.0 - URINARY TRACT INFECTION, SITE NOT SPECIFIED (3) TANISHA (acute kidney injury) Code(s): N17.9 - ACUTE KIDNEY FAILURE, UNSPECIFIED (4) Abnormal CT scan Code(s): R93.8 - ABNORMAL FINDINGS ON DIAGNOSTIC IMAGING OF APOORVA * DO NOT USE * (5) Anemia Code(s): D64.9 - ANEMIA, UNSPECIFIED (6) Breast CA Code(s): C50.919 - MALIGNANT NEOPLASM OF UNSP SITE OF UNSPECIFIED FEMALE BREAST (7) Decubitus ulcer Code(s): L89.90 - PRESSURE ULCER OF UNSPECIFIED SITE, UNSPECIFIED STAGE (8) 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 Code(s): G35 - MULTIPLE SCLEROSIS; R53.2 - FUNCTIONAL QUADRIPLEGIA (9) Aphasia Code(s): R47.01 - APHASIA (10) Dysphagia Code(s): R13.10 - DYSPHAGIA, UNSPECIFIED Qualifiers: Dysphagia type: oropharyngeal phase Qualified Code(s): R13.12 - Dysphagia, oropharyngeal phase (11) Seizure Code(s): R56.9 - UNSPECIFIED CONVULSIONS Assessment/Plan FAMILY AWARE OF SEVERE CEREBRAL DYSFUNCTION AND WORSENING MULTIPLE SCLEROSIS CONDITION. FAILED SWALLOW EVAL/NEUROGENIC BLADDER SPC. ON IV ABX FOR SEPSIS FUNCTIONAL QUADRIPLEGIA. POOR OVERALL PROGNOSIS NOT A GOOD CANDIDATE FOR FEEDING TUBE CONSIDERING COMORBIDITIES AND PROGNOSIS. RECOMMENDED IV NUTRITION AT [facility]. AWAITING FAMILY ANSWER BY TOMORROW.
--- NOTE | 2018-11-01 10:20 | PN ---
Progress Note, Physician - Current Medication List Current Medications: Active Medications Acetaminophen (Tylenol -) 650 mg PO Q4H PRN PRN Reason: FEVER Last Admin: 10/29/18 22:28 Dose: 650 mg Albuterol/Ipratropium (Duoneb -) 1 amp NEB Q4H PRN PRN Reason: SHORTNESS OF BREATH Last Admin: 11/01/18 08:10 Dose: 1 amp Ascorbic Acid (Vitamin C -) 500 mg PO DAILY [facility] Last Admin: 10/31/18 12:17 Dose: Not Given Bisacodyl (Dulcolax Suppository -) 10 mg RC DAILY [facility] Last Admin: 10/31/18 12:16 Dose: Not Given Calcium Carbonate/Cholecalciferol (Os-Mikie 500+D -) 1 tab PO DAILY [facility] Last Admin: 10/31/18 12:17 Dose: Not Given Cholecalciferol (Vitamin D3 -) 1,000 unit PO DAILY [facility] Last Admin: 10/31/18 12:18 Dose: Not Given Collagenase (Santyl -) 1 applic TP DAILY [facility]; Protocol Last Admin: 10/31/18 15:07 Dose: 1 applic Docusate Sodium (Colace -) 100 mg PO HS [facility] Last Admin: 10/31/18 21:48 Dose: Not Given Enoxaparin Sodium (Lovenox -) 40 mg SQ DAILY [facility] Last Admin: 10/31/18 11:33 Dose: 40 mg Ferrous Sulfate (Feosol -) 325 mg PO DAILY [facility] Last Admin: 10/31/18 12:16 Dose: Not Given Fluconazole (Diflucan 200 Mg/D5w Premixed Ivpb -) 100 mls @ 100 mls/hr IVPB DAILY [facility] Last Admin: 10/31/18 11:34 Dose: 100 mls/hr Dextrose/Sodium Chloride (D5-Ns -) 1,000 mls @ 42 mls/hr IV ASDIR [facility] Last Admin: 10/31/18 12:00 Dose: 42 mls/hr Lactobacillus Acidophilus (Bacid -) 1 tab PO DAILY [facility] Last Admin: 10/31/18 12:16 Dose: Not Given Levetiracetam (Keppra Injection -) 500 mg IVPB BID [facility] Last Admin: 10/31/18 21:44 Dose: 500 mg Levothyroxine Sodium (Synthroid -) 100 mcg PO 0700 [facility] Last Admin: 11/01/18 06:32 Dose: Not Given Multivitamins/Minerals/Vitamin C (Tab-A-Vit -) 1 tab PO DAILY [facility] Last Admin: 10/31/18 12:17 Dose: Not Given Non-Formulary Medication (Interferon Beta-1a [Avonex]) 30 mcg IM Tu [facility] Last Admin: 10/31/18 23:42 Dose: 30 mcg Pantoprazole Sodium (Protonix Iv) 40 mg IVPUSH DAILY [facility] Last Admin: 10/31/18 11:34 Dose: 40 mg Polyethylene Glycol (Miralax (For Daily Use) -) 17 gm PO BID [facility] Last Admin: 10/31/18 21:48 Dose: Not Given Senna (Senna -) 2 tab PO HS [facility] Last Admin: 10/31/18 21:49 Dose: Not Given Sodium Phosphate (Fleet Adult Rectal Enema -) 133 ml RC PRN PRN PRN Reason: CONSTIPATION Tamoxifen Citrate (Tamoxifen Citrate) 20 mg PO DAILY [facility] Last Admin: 10/31/18 12:17 Dose: Not Given Zinc Sulfate (Orazinc -) 220 mg PO BID [facility] Last Admin: 10/31/18 21:49 Dose: Not Given - Objective Vital Signs: Vital Signs Temperature 99 F 11/01/18 06:00 Pulse Rate 100 H 11/01/18 06:00 Respiratory Rate 18 11/01/18 06:00 Blood Pressure 110/68 11/01/18 06:00 O2 Sat by Pulse Oximetry (%) 97 10/31/18 09:00 Labs: CBC, BMP 11/01/18 06:55 11/01/18 06:55 INR, PTT INR 1.08 (0.83-1.09) 10/22/18 07:00
[2018-11-01] MEDS: levETIRAcetam 500 MG/5 ML INJECTION VIAL IVPB SCH ×2 (10:49→22:14)
[2018-11-01] MEDS: PANTOPRAZOLE SODIUM 40 MG VIAL IVPUSH SCH (10:52)
[2018-11-01] MEDS: BISACODYL 10 MG SUPP.RECT RC SCH (10:54)
[2018-11-01] MEDS: ENOXAPARIN NA (PORCINE) 40 MG/0.4 ML DISP.SYRIN SQ SCH (10:54)
[2018-11-01] MEDS: LACTOBACILLUS ACIDOPHILUS 1 TABLET PO SCH (11:58)
[2018-11-01] MEDS: FLUCONAZOLE 200 MG/D5W 100 ML IVPB SCH (11:59)
[2018-11-01] MEDS: POLYETHYLENE GLYCOL 3350 119 GM BTL PO SCH ×2 (12:02→22:11)
[2018-11-01] MEDS: FERROUS SO4 325 MG TABLET (FP) PO SCH (12:02)
[2018-11-01] MEDS: MULTIVITAMINS (DAILY MVI) TABLET (FP) PO SCH (12:03)
[2018-11-01] MEDS: ZINC SULFATE 220 MG CAPSULE (FP) PO SCH ×2 (12:03→22:12)
[2018-11-01] MEDS: CALCIUM 500MG/VIT-D 200 UNITS COMBO TABLET (FP) PO SCH (12:03)
[2018-11-01] MEDS: CHOLECALCIFEROL (VIT D3) 1,000 UNIT (25 MCG) TABLET PO SCH (12:04)
[2018-11-01] MEDS: ASCORBIC ACID 500 MG TABLET (FP) PO SCH (12:04)
[2018-11-01] MEDS: TAMOXIFEN CITRATE 10 MG TABLET PO SCH (12:04)
[2018-11-01] MEDS: COLLAGENASE CLOSTRIDIUM HIST. 30 GRAMS TUBE TP SCH (12:04)
--- NOTE | 2018-11-01 13:04 | PN ---
Progress Note, LEASE BUYER - Note Progress Note: Selected Entries 11/01/18 11/01/18 06:00 10:50 Temperature 99 F 98.6 F Laboratory Tests 11/01/18 06:55 WBC 5.8 Transfer to [facility] being considered.NPO. High risk of aspiration. Poor prognosis for functional recovery.
[2018-11-01] MEDS ORDERED: levETIRAcetam 500 MG/5 ML INJECTION VIAL IVPB ONE (13:27)
--- NOTE | 2018-11-01 13:30 | CONSULT ---
Consult - text type - Consultation Consultation Note: NEUROLOGY PROGRESS: Events reviewed and discussed with nursing staff. Daughter Ana and Hot Repairman at bedside. Daughter notes persistent, recurrent "twitching" of the R eye and R arm, lasting approximately 30 seconds up to " 30 times" in one day." Currently on leveteracitam 500 mg IVP q12H. S/P Avonex 30 mcg injection for chronic Multiple sclerosis. Now on IV fluconazole for yeast infection of bladder. Failed swallowing eval and NPO status. Family preparing for palliative care at [facility]. [facility] (reviewed): Mod volume loss with ex vacuo ventricular dilation. Extensive periventricular demyelinating plaques. JORGE: T99. Neg L'Hermittes. L knee contracture. Suprapubic catheter. PICC in LUE. On o2 via N/C NEURO: Eyes open. Non-verbal to voice or tactile stimuli. Follows no commands. + glabella, snout, grasps. Severely reduced tongue KATIE's. Reduced gag. Early contractures of the arms/elbows. + Spontaneous respirations. Intermittent twitching of R eyelid and R arm Decreased pinch in all fours Impression: Severe B/L Cerebral Dysfunction (OMS, likely chronic) R sided partial motor seizures Advanced MS All worsened by Toxic-Metabolic Encephalopathy (Funguria), Post- ictal state Suggest: Continue IV antifungal treatments and IVF Increase leveteracitam to 1 gram IVP q12H Palliative care in place Thank you very much, Moi Alarcon MD
[2018-11-01] MEDS: DEXTROSE 5%-NORMAL SALINE 1,000 ML IV SCH ×2 (17:32→17:33)
[2018-11-01] MEDS ORDERED: PT OWN MED DRAWER 7, Y5N ONE ×2 (22:11→23:08)
[2018-11-01] MEDS: DOCUSATE SODIUM 100 MG CAPSULE (FP) PO SCH (22:11)
[2018-11-01] MEDS: SENNOSIDES 8.6MG TABLET (FP) PO SCH (22:12)
[2018-11-02] MEDS: LEVOTHYROXINE NA 100 MCG TABLET (FP) PO SCH (07:21)
[2018-11-02] MEDS: LACTOBACILLUS ACIDOPHILUS 1 TABLET PO SCH (10:23)
[2018-11-02] MEDS: FERROUS SO4 325 MG TABLET (FP) PO SCH (10:25)
[2018-11-02] MEDS: CALCIUM 500MG/VIT-D 200 UNITS COMBO TABLET (FP) PO SCH (10:25)
[2018-11-02] MEDS: POLYETHYLENE GLYCOL 3350 119 GM BTL PO SCH ×2 (10:25→22:01)
[2018-11-02] MEDS: ZINC SULFATE 220 MG CAPSULE (FP) PO SCH ×2 (10:25→22:02)
[2018-11-02] MEDS: MULTIVITAMINS (DAILY MVI) TABLET (FP) PO SCH (10:26)
[2018-11-02] MEDS: TAMOXIFEN CITRATE 10 MG TABLET PO SCH (10:26)
[2018-11-02] MEDS: ASCORBIC ACID 500 MG TABLET (FP) PO SCH (10:26)
[2018-11-02] MEDS: CHOLECALCIFEROL (VIT D3) 1,000 UNIT (25 MCG) TABLET PO SCH (10:27)
[2018-11-02] MEDS: FLUCONAZOLE 200 MG/D5W 100 ML IVPB SCH (10:30)
[2018-11-02] MEDS: levETIRAcetam 500 MG/5 ML INJECTION VIAL IVPB SCH ×2 (11:24→22:02)
[2018-11-02] MEDS: BISACODYL 10 MG SUPP.RECT RC SCH (11:24)
[2018-11-02] MEDS: ENOXAPARIN NA (PORCINE) 40 MG/0.4 ML DISP.SYRIN SQ SCH (11:24)
[2018-11-02] MEDS: PANTOPRAZOLE SODIUM 40 MG VIAL IVPUSH SCH (12:27)
--- NOTE | 2018-11-02 12:29 | PN ---
Progress Note, Physician History of Present Illness: much more awake and alert - Current Medication List Current Medications: Active Medications Acetaminophen (Tylenol -) 650 mg PO Q4H PRN PRN Reason: FEVER Last Admin: 10/29/18 22:28 Dose: 650 mg Albuterol/Ipratropium (Duoneb -) 1 amp NEB Q4H PRN PRN Reason: SHORTNESS OF BREATH Last Admin: 11/01/18 08:10 Dose: 1 amp Ascorbic Acid (Vitamin C -) 500 mg PO DAILY [facility] Last Admin: 11/02/18 10:26 Dose: Not Given Bisacodyl (Dulcolax Suppository -) 10 mg RC DAILY [facility] Last Admin: 11/02/18 11:24 Dose: 10 mg Calcium Carbonate/Cholecalciferol (Os-Mikie 500+D -) 1 tab PO DAILY [facility] Last Admin: 11/02/18 10:25 Dose: Not Given Cholecalciferol (Vitamin D3 -) 1,000 unit PO DAILY [facility] Last Admin: 11/02/18 10:27 Dose: Not Given Collagenase (Santyl -) 1 applic TP DAILY [facility]; Protocol Last Admin: 11/01/18 12:04 Dose: 1 applic Docusate Sodium (Colace -) 100 mg PO HS [facility] Last Admin: 11/01/18 22:11 Dose: Not Given Enoxaparin Sodium (Lovenox -) 40 mg SQ DAILY [facility] Last Admin: 11/02/18 11:24 Dose: 40 mg Ferrous Sulfate (Feosol -) 325 mg PO DAILY [facility] Last Admin: 11/02/18 10:25 Dose: Not Given Fluconazole (Diflucan 200 Mg/D5w Premixed Ivpb -) 100 mls @ 100 mls/hr IVPB DAILY [facility] Last Admin: 11/02/18 10:30 Dose: 100 mls/hr Dextrose/Sodium Chloride (D5-Ns -) 1,000 mls @ 42 mls/hr IV ASDIR [facility] Last Admin: 11/01/18 17:33 Dose: Not Given Lactobacillus Acidophilus (Bacid -) 1 tab PO DAILY [facility] Last Admin: 11/02/18 10:23 Dose: Not Given Levetiracetam (Keppra Injection -) 1,000 mg IVPB BID [facility] Last Admin: 11/02/18 11:24 Dose: 1,000 mg Levothyroxine Sodium (Synthroid -) 100 mcg PO 0700 [facility] Last Admin: 11/02/18 07:21 Dose: Not Given Multivitamins/Minerals/Vitamin C (Tab-A-Vit -) 1 tab PO DAILY [facility] Last Admin: 11/02/18 10:26 Dose: Not Given Non-Formulary Medication (Interferon Beta-1a [Avonex]) 30 mcg IM Tu [facility] Last Admin: 10/31/18 23:42 Dose: 30 mcg Pantoprazole Sodium (Protonix Iv) 40 mg IVPUSH DAILY [facility] Last Admin: 11/02/18 12:27 Dose: 40 mg Polyethylene Glycol (Miralax (For Daily Use) -) 17 gm PO BID [facility] Last Admin: 11/02/18 10:25 Dose: Not Given Senna (Senna -) 2 tab PO HS [facility] Last Admin: 11/01/18 22:12 Dose: Not Given Sodium Phosphate (Fleet Adult Rectal Enema -) 133 ml RC PRN PRN PRN Reason: CONSTIPATION Tamoxifen Citrate (Tamoxifen Citrate) 20 mg PO DAILY [facility] Last Admin: 11/02/18 10:26 Dose: Not Given Zinc Sulfate (Orazinc -) 220 mg PO BID [facility] Last Admin: 11/02/18 10:25 Dose: Not Given - Objective Vital Signs: Vital Signs Temperature 97.8 F 11/02/18 06:00 Pulse Rate 86 11/02/18 06:00 Respiratory Rate 20 11/02/18 06:00 Blood Pressure 142/58 L 11/02/18 06:00 O2 Sat by Pulse Oximetry (%) 98 11/01/18 21:00 Constitutional: Yes: No Distress, Calm Cardiovascular: Yes: S1, S2 Respiratory: Yes: Regular, CTA Bilaterally, On Nasal O2 Gastrointestinal: Yes: Normal Bowel Sounds, Soft Musculoskeletal: Yes: WNL Extremities: Yes: Other Neurological: Yes: Alert, Other Psychiatric: Yes: Other Labs: CBC, BMP 11/01/18 06:55 11/01/18 06:55 INR, PTT INR 1.08 (0.83-1.09) 10/22/18 07:00 Assessment/Plan Problem List - Problems (1) Sepsis Code(s): A41.9 - SEPSIS, UNSPECIFIED ORGANISM (2) UTI (urinary tract infection) due to urinary indwelling catheter Code(s): T83.51XA - ; N39.0 - URINARY TRACT INFECTION, SITE NOT SPECIFIED (3) TANISHA (acute kidney injury) Code(s): N17.9 - ACUTE KIDNEY FAILURE, UNSPECIFIED (4) Breast CA Code(s): C50.919 - MALIGNANT NEOPLASM OF UNSP SITE OF UNSPECIFIED FEMALE BREAST (5) 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 Code(s): G35 - MULTIPLE SCLEROSIS; R53.2 - FUNCTIONAL QUADRIPLEGIA (6) GERD (gastroesophageal reflux disease) Code(s): K21.9 - GASTRO-ESOPHAGEAL REFLUX DISEASE WITHOUT ESOPHAGITIS Qualifiers: Esophagitis presence: without esophagitis Qualified Code(s): K21.9 - Gastro -esophageal reflux disease without esophagitis (7) Hydronephrosis Code(s): N13.30 - UNSPECIFIED HYDRONEPHROSIS Qualifiers: Hydronephrosis type: with renal and ureteral calculous obstruction Qualified Code(s): N13.2 - Hydronephrosis with renal and ureteral calculous obstruction (8) Hypothyroid Code(s): E03.9 - HYPOTHYROIDISM, UNSPECIFIED (9) Nephrolithiasis Code(s): N20.0 - CALCULUS OF KIDNEY (10) Neurogenic bladder Code(s): N31.9 - NEUROMUSCULAR DYSFUNCTION OF BLADDER, UNSPECIFIED Assessment/Plan Complicated UTI Sepsis Leukocytosis Neurogenic bladder s/p SPC MS Dementia plan continue as per neuro nutrition rest as per the team stable
[2018-11-02] MEDS: COLLAGENASE CLOSTRIDIUM HIST. 30 GRAMS TUBE TP SCH (16:53)
[2018-11-02] MEDS: DEXTROSE 5%-NORMAL SALINE 1,000 ML IV SCH (16:54)
[2018-11-02] MEDS ORDERED: levETIRAcetam 500 MG/5 ML INJECTION VIAL IVPB ONE (17:00)
--- NOTE | 2018-11-02 18:35 | PN ---
Progress Note, Physician Chief Complaint: APPEARS MORE ALERT TODAY STILL WEAK AND NON-VERBAL - Current Medication List Current Medications: Active Medications Acetaminophen (Tylenol -) 650 mg PO Q4H PRN PRN Reason: FEVER Last Admin: 10/29/18 22:28 Dose: 650 mg Albuterol/Ipratropium (Duoneb -) 1 amp NEB Q4H PRN PRN Reason: SHORTNESS OF BREATH Last Admin: 11/01/18 08:10 Dose: 1 amp Ascorbic Acid (Vitamin C -) 500 mg PO DAILY [facility] Last Admin: 11/02/18 10:26 Dose: Not Given Bisacodyl (Dulcolax Suppository -) 10 mg RC DAILY [facility] Last Admin: 11/02/18 11:24 Dose: 10 mg Calcium Carbonate/Cholecalciferol (Os-Mikie 500+D -) 1 tab PO DAILY [facility] Last Admin: 11/02/18 10:25 Dose: Not Given Cholecalciferol (Vitamin D3 -) 1,000 unit PO DAILY [facility] Last Admin: 11/02/18 10:27 Dose: Not Given Collagenase (Santyl -) 1 applic TP DAILY [facility]; Protocol Last Admin: 11/02/18 16:53 Dose: 1 applic Docusate Sodium (Colace -) 100 mg PO HS [facility] Last Admin: 11/01/18 22:11 Dose: Not Given Enoxaparin Sodium (Lovenox -) 40 mg SQ DAILY [facility] Last Admin: 11/02/18 11:24 Dose: 40 mg Ferrous Sulfate (Feosol -) 325 mg PO DAILY [facility] Last Admin: 11/02/18 10:25 Dose: Not Given Dextrose/Sodium Chloride (D5-Ns -) 1,000 mls @ 42 mls/hr IV ASDIR [facility] Last Admin: 11/02/18 16:54 Dose: 42 mls/hr Lactobacillus Acidophilus (Bacid -) 1 tab PO DAILY [facility] Last Admin: 11/02/18 10:23 Dose: Not Given Levetiracetam (Keppra Injection -) 1,000 mg IVPB BID [facility] Last Admin: 11/02/18 11:24 Dose: 1,000 mg Levothyroxine Sodium (Synthroid -) 100 mcg PO 0700 [facility] Last Admin: 11/02/18 07:21 Dose: Not Given Multivitamins/Minerals/Vitamin C (Tab-A-Vit -) 1 tab PO DAILY [facility] Last Admin: 11/02/18 10:26 Dose: Not Given Non-Formulary Medication (Interferon Beta-1a [Avonex]) 30 mcg IM Tu [facility] Last Admin: 10/31/18 23:42 Dose: 30 mcg Pantoprazole Sodium (Protonix Iv) 40 mg IVPUSH DAILY [facility] Last Admin: 11/02/18 12:27 Dose: 40 mg Polyethylene Glycol (Miralax (For Daily Use) -) 17 gm PO BID [facility] Last Admin: 11/02/18 10:25 Dose: Not Given Senna (Senna -) 2 tab PO HS [facility] Last Admin: 11/01/18 22:12 Dose: Not Given Sodium Phosphate (Fleet Adult Rectal Enema -) 133 ml RC PRN PRN PRN Reason: CONSTIPATION Tamoxifen Citrate (Tamoxifen Citrate) 20 mg PO DAILY [facility] Last Admin: 11/02/18 10:26 Dose: Not Given Zinc Sulfate (Orazinc -) 220 mg PO BID [facility] Last Admin: 11/02/18 10:25 Dose: Not Given - Objective Vital Signs: Vital Signs Temperature 98 F 11/02/18 16:51 Pulse Rate 93 H 11/02/18 16:51 Respiratory Rate 20 11/02/18 16:51 Blood Pressure 134/72 11/02/18 16:51 O2 Sat by Pulse Oximetry (%) 98 11/02/18 09:00 Constitutional: Yes: Mild Distress Eyes: Yes: Other HENT: Yes: Other Cardiovascular: Yes: Regular Rate and Rhythm Respiratory: Yes: Diminished, On Nasal O2 Gastrointestinal: Yes: Soft Genitourinary: Yes: Incontinence Musculoskeletal: Yes: Muscle Weakness Extremities: Yes: Other Edema: No Peripheral Pulses WNL: Yes Integumentary: Yes: Other Wound/Incision: Yes: Dressing Dry and Intact Neurological: Yes: Aphasia, Pre-Existing Deficit, Weakness ...Motor Strength: LUE, LLE, RUE, RLE Psychiatric: Yes: Other Labs: CBC, BMP 11/01/18 06:55 11/01/18 06:55 INR, PTT INR 1.08 (0.83-1.09) 10/22/18 07:00 Problem List - Problems (1) Sepsis Code(s): A41.9 - SEPSIS, UNSPECIFIED ORGANISM (2) UTI (urinary tract infection) due to urinary indwelling catheter Code(s): T83.51XA - ; N39.0 - URINARY TRACT INFECTION, SITE NOT SPECIFIED (3) TANISHA (acute kidney injury) Code(s): N17.9 - ACUTE KIDNEY FAILURE, UNSPECIFIED (4) Abnormal CT scan Code(s): R93.8 - ABNORMAL FINDINGS ON DIAGNOSTIC IMAGING OF APOORVA * DO NOT USE * (5) Anemia Code(s): D64.9 - ANEMIA, UNSPECIFIED (6) Breast CA Code(s): C50.919 - MALIGNANT NEOPLASM OF UNSP SITE OF UNSPECIFIED FEMALE BREAST (7) Decubitus ulcer Code(s): L89.90 - PRESSURE ULCER OF UNSPECIFIED SITE, UNSPECIFIED STAGE (8) 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 Code(s): G35 - MULTIPLE SCLEROSIS; R53.2 - FUNCTIONAL QUADRIPLEGIA (9) Aphasia Code(s): R47.01 - APHASIA (10) Dysphagia Code(s): R13.10 - DYSPHAGIA, UNSPECIFIED Qualifiers: Dysphagia type: oropharyngeal phase Qualified Code(s): R13.12 - Dysphagia, oropharyngeal phase (11) Seizure Code(s): R56.9 - UNSPECIFIED CONVULSIONS (12) Toxic metabolic encephalopathy Code(s): G92 - TOXIC ENCEPHALOPATHY Assessment/Plan IV ABX CONTINUE CHECK LABS FOOD TRIAL IF MORE AWAKE ID F/U APPRECIATED AND AWAIT DURATION OF ABX DC PLANNING
[2018-11-02] MEDS: DOCUSATE SODIUM 100 MG CAPSULE (FP) PO SCH (22:01)
[2018-11-02] MEDS: SENNOSIDES 8.6MG TABLET (FP) PO SCH (22:02)
[2018-11-03] MEDS: LEVOTHYROXINE NA 100 MCG TABLET (FP) PO SCH (06:04)
--- NOTE | 2018-11-03 08:35 | PN ---
Progress Note, Physician History of Present Illness: in no distress no new issues - Current Medication List Current Medications: Active Medications Acetaminophen (Tylenol -) 650 mg PO Q4H PRN PRN Reason: FEVER Last Admin: 10/29/18 22:28 Dose: 650 mg Albuterol/Ipratropium (Duoneb -) 1 amp NEB Q4H PRN PRN Reason: SHORTNESS OF BREATH Last Admin: 11/01/18 08:10 Dose: 1 amp Ascorbic Acid (Vitamin C -) 500 mg PO DAILY [facility] Last Admin: 11/02/18 10:26 Dose: Not Given Bisacodyl (Dulcolax Suppository -) 10 mg RC DAILY [facility] Last Admin: 11/02/18 11:24 Dose: 10 mg Calcium Carbonate/Cholecalciferol (Os-Mikie 500+D -) 1 tab PO DAILY [facility] Last Admin: 11/02/18 10:25 Dose: Not Given Cholecalciferol (Vitamin D3 -) 1,000 unit PO DAILY [facility] Last Admin: 11/02/18 10:27 Dose: Not Given Collagenase (Santyl -) 1 applic TP DAILY [facility]; Protocol Last Admin: 11/02/18 16:53 Dose: 1 applic Docusate Sodium (Colace -) 100 mg PO HS [facility] Last Admin: 11/02/18 22:01 Dose: Not Given Enoxaparin Sodium (Lovenox -) 40 mg SQ DAILY [facility] Last Admin: 11/02/18 11:24 Dose: 40 mg Ferrous Sulfate (Feosol -) 325 mg PO DAILY [facility] Last Admin: 11/02/18 10:25 Dose: Not Given Dextrose/Sodium Chloride (D5-Ns -) 1,000 mls @ 42 mls/hr IV ASDIR [facility] Last Admin: 11/02/18 16:54 Dose: 42 mls/hr Lactobacillus Acidophilus (Bacid -) 1 tab PO DAILY [facility] Last Admin: 11/02/18 10:23 Dose: Not Given Levetiracetam (Keppra Injection -) 1,000 mg IVPB BID [facility] Last Admin: 11/02/18 22:02 Dose: 1,000 mg Levothyroxine Sodium (Synthroid -) 100 mcg PO 0700 [facility] Last Admin: 11/03/18 06:04 Dose: Not Given Multivitamins/Minerals/Vitamin C (Tab-A-Vit -) 1 tab PO DAILY [facility] Last Admin: 11/02/18 10:26 Dose: Not Given Non-Formulary Medication (Interferon Beta-1a [Avonex]) 30 mcg IM Tu [facility] Last Admin: 10/31/18 23:42 Dose: 30 mcg Pantoprazole Sodium (Protonix Iv) 40 mg IVPUSH DAILY [facility] Last Admin: 11/02/18 12:27 Dose: 40 mg Polyethylene Glycol (Miralax (For Daily Use) -) 17 gm PO BID [facility] Last Admin: 11/02/18 22:01 Dose: Not Given Senna (Senna -) 2 tab PO HS [facility] Last Admin: 11/02/18 22:02 Dose: Not Given Sodium Phosphate (Fleet Adult Rectal Enema -) 133 ml RC PRN PRN PRN Reason: CONSTIPATION Tamoxifen Citrate (Tamoxifen Citrate) 20 mg PO DAILY [facility] Last Admin: 11/02/18 10:26 Dose: Not Given Zinc Sulfate (Orazinc -) 220 mg PO BID [facility] Last Admin: 11/02/18 22:02 Dose: Not Given - Objective Vital Signs: Vital Signs Temperature 98.2 F 11/03/18 06:00 Pulse Rate 88 11/03/18 06:00 Respiratory Rate 18 11/03/18 06:00 Blood Pressure 110/60 11/03/18 06:00 O2 Sat by Pulse Oximetry (%) 98 11/02/18 09:00 Constitutional: Yes: Calm Cardiovascular: Yes: S1, S2 Respiratory: Yes: Regular, CTA Bilaterally Gastrointestinal: Yes: Normal Bowel Sounds, Soft Musculoskeletal: Yes: WNL Extremities: Yes: Other Neurological: Yes: Alert, Other Psychiatric: Yes: Other Labs: CBC, BMP 11/01/18 06:55 11/01/18 06:55 INR, PTT INR 1.08 (0.83-1.09) 10/22/18 07:00 Assessment/Plan Problem List - Problems (1) Sepsis Code(s): A41.9 - SEPSIS, UNSPECIFIED ORGANISM (2) UTI (urinary tract infection) due to urinary indwelling catheter Code(s): T83.51XA - ; N39.0 - URINARY TRACT INFECTION, SITE NOT SPECIFIED (3) TANISHA (acute kidney injury) Code(s): N17.9 - ACUTE KIDNEY FAILURE, UNSPECIFIED (4) Breast CA Code(s): C50.919 - MALIGNANT NEOPLASM OF UNSP SITE OF UNSPECIFIED FEMALE BREAST (5) 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 Code(s): G35 - MULTIPLE SCLEROSIS; R53.2 - FUNCTIONAL QUADRIPLEGIA (6) GERD (gastroesophageal reflux disease) Code(s): K21.9 - GASTRO-ESOPHAGEAL REFLUX DISEASE WITHOUT ESOPHAGITIS Qualifiers: Esophagitis presence: without esophagitis Qualified Code(s): K21.9 - Gastro -esophageal reflux disease without esophagitis (7) Hydronephrosis Code(s): N13.30 - UNSPECIFIED HYDRONEPHROSIS Qualifiers: Hydronephrosis type: with renal and ureteral calculous obstruction Qualified Code(s): N13.2 - Hydronephrosis with renal and ureteral calculous obstruction (8) Hypothyroid Code(s): E03.9 - HYPOTHYROIDISM, UNSPECIFIED (9) Nephrolithiasis Code(s): N20.0 - CALCULUS OF KIDNEY (10) Neurogenic bladder Code(s): N31.9 - NEUROMUSCULAR DYSFUNCTION OF BLADDER, UNSPECIFIED Assessment/Plan Complicated UTI Sepsis Leukocytosis Neurogenic bladder s/p SPC MS Dementia plan continue as per neuro nutrition rest as per the team stable
[2018-11-03] MEDS ORDERED: PT OWN MED DRAWER 7, Y5N ONE (10:27)
[2018-11-03] MEDS: FERROUS SO4 325 MG TABLET (FP) PO SCH (10:37)
[2018-11-03] MEDS: CALCIUM 500MG/VIT-D 200 UNITS COMBO TABLET (FP) PO SCH (10:37)
[2018-11-03] MEDS: MULTIVITAMINS (DAILY MVI) TABLET (FP) PO SCH (10:37)
[2018-11-03] MEDS: LACTOBACILLUS ACIDOPHILUS 1 TABLET PO SCH (10:37)
[2018-11-03] MEDS: POLYETHYLENE GLYCOL 3350 119 GM BTL PO SCH ×2 (10:37→22:10)
[2018-11-03] MEDS: ZINC SULFATE 220 MG CAPSULE (FP) PO SCH ×2 (10:37→22:10)
[2018-11-03] MEDS: TAMOXIFEN CITRATE 10 MG TABLET PO SCH (10:38)
[2018-11-03] MEDS: CHOLECALCIFEROL (VIT D3) 1,000 UNIT (25 MCG) TABLET PO SCH (10:38)
[2018-11-03] MEDS: ASCORBIC ACID 500 MG TABLET (FP) PO SCH (10:38)
[2018-11-03] MEDS: levETIRAcetam 500 MG/5 ML INJECTION VIAL IVPB SCH ×2 (10:39→22:10)
[2018-11-03] MEDS: PANTOPRAZOLE SODIUM 40 MG VIAL IVPUSH SCH (10:40)
[2018-11-03] MEDS: BISACODYL 10 MG SUPP.RECT RC SCH (10:40)
[2018-11-03] MEDS: COLLAGENASE CLOSTRIDIUM HIST. 30 GRAMS TUBE TP SCH (10:41)
[2018-11-03] MEDS: ENOXAPARIN NA (PORCINE) 40 MG/0.4 ML DISP.SYRIN SQ SCH (10:41)
--- NOTE | 2018-11-03 12:48 | PN ---
Progress Note, Physician Chief Complaint: Sepsis Suprapubic Catheter UTI MS History of Present Illness: Previous notes and events reviewed awake, non verbal no facial twitching noted currently afebrile, no leukocytosis NPO 2/2 high risk for aspiration pending transfer to [facility] - Current Medication List Current Medications: Active Medications Acetaminophen (Tylenol -) 650 mg PO Q4H PRN PRN Reason: FEVER Last Admin: 10/29/18 22:28 Dose: 650 mg Albuterol/Ipratropium (Duoneb -) 1 amp NEB Q4H PRN PRN Reason: SHORTNESS OF BREATH Last Admin: 11/01/18 08:10 Dose: 1 amp Ascorbic Acid (Vitamin C -) 500 mg PO DAILY [facility] Last Admin: 11/03/18 10:38 Dose: Not Given Bisacodyl (Dulcolax Suppository -) 10 mg RC DAILY [facility] Last Admin: 11/03/18 10:40 Dose: 10 mg Calcium Carbonate/Cholecalciferol (Os-Mikie 500+D -) 1 tab PO DAILY [facility] Last Admin: 11/03/18 10:37 Dose: Not Given Cholecalciferol (Vitamin D3 -) 1,000 unit PO DAILY [facility] Last Admin: 11/03/18 10:38 Dose: Not Given Collagenase (Santyl -) 1 applic TP DAILY [facility]; Protocol Last Admin: 11/03/18 10:41 Dose: 1 applic Docusate Sodium (Colace -) 100 mg PO HS [facility] Last Admin: 11/02/18 22:01 Dose: Not Given Enoxaparin Sodium (Lovenox -) 40 mg SQ DAILY [facility] Last Admin: 11/03/18 10:41 Dose: 40 mg Ferrous Sulfate (Feosol -) 325 mg PO DAILY [facility] Last Admin: 11/03/18 10:37 Dose: Not Given Dextrose/Sodium Chloride (D5-Ns -) 1,000 mls @ 42 mls/hr IV ASDIR [facility] Last Admin: 11/02/18 16:54 Dose: 42 mls/hr Lactobacillus Acidophilus (Bacid -) 1 tab PO DAILY [facility] Last Admin: 11/03/18 10:37 Dose: Not Given Levetiracetam (Keppra Injection -) 1,000 mg IVPB BID [facility] Last Admin: 11/03/18 10:39 Dose: 1,000 mg Levothyroxine Sodium (Synthroid -) 100 mcg PO 0700 [facility] Last Admin: 11/03/18 06:04 Dose: Not Given Multivitamins/Minerals/Vitamin C (Tab-A-Vit -) 1 tab PO DAILY [facility] Last Admin: 11/03/18 10:37 Dose: Not Given Non-Formulary Medication (Interferon Beta-1a [Avonex]) 30 mcg IM Tu [facility] Last Admin: 10/31/18 23:42 Dose: 30 mcg Pantoprazole Sodium (Protonix Iv) 40 mg IVPUSH DAILY [facility] Last Admin: 11/03/18 10:40 Dose: 40 mg Polyethylene Glycol (Miralax (For Daily Use) -) 17 gm PO BID [facility] Last Admin: 11/03/18 10:37 Dose: Not Given Senna (Senna -) 2 tab PO HS [facility] Last Admin: 11/02/18 22:02 Dose: Not Given Sodium Phosphate (Fleet Adult Rectal Enema -) 133 ml RC PRN PRN PRN Reason: CONSTIPATION Tamoxifen Citrate (Tamoxifen Citrate) 20 mg PO DAILY [facility] Last Admin: 11/03/18 10:38 Dose: Not Given Zinc Sulfate (Orazinc -) 220 mg PO BID [facility] Last Admin: 11/03/18 10:37 Dose: Not Given - Objective Vital Signs: Vital Signs Temperature 98.2 F 11/03/18 06:00 Pulse Rate 88 11/03/18 06:00 Respiratory Rate 18 11/03/18 06:00 Blood Pressure 110/60 11/03/18 06:00 O2 Sat by Pulse Oximetry (%) 98 11/02/18 09:00 Constitutional: Yes: No Distress, Calm Eyes: Yes: Conjunctiva Clear HENT: Yes: Atraumatic Cardiovascular: Yes: Regular Rate and Rhythm Respiratory: Yes: Regular, CTA Bilaterally, On Nasal O2 Gastrointestinal: Yes: Normal Bowel Sounds, Soft Genitourinary: Yes: Chopra Present (suprapubic), Incontinence Musculoskeletal: Yes: Muscle Weakness Extremities: Yes: WNL Edema: No Neurological: Yes: Alert, Pre-Existing Deficit Labs: CBC, BMP 11/01/18 06:55 11/01/18 06:55 INR, PTT INR 1.08 (0.83-1.09) 10/22/18 07:00 Problem List - Problems (1) Sepsis Assessment/Plan: -UC yeast like organism -BC neg -CXR shows left base aerated with persistent residual infiltrate or atelectasis -ID on board -periodic temp spikes, currently afebrile -tylenol IVPB for temp >100F -repeat UC shows yeast like organism Code(s): A41.9 - SEPSIS, UNSPECIFIED ORGANISM (2) 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 Assessment/Plan: -fall precaution -Avonex -aspiration precaution -NPO -FIRE 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 Code(s): G35 - MULTIPLE SCLEROSIS; R53.2 - FUNCTIONAL QUADRIPLEGIA (3) GERD (gastroesophageal reflux disease) Assessment/Plan: -Pantoprazole Code(s): K21.9 - GASTRO-ESOPHAGEAL REFLUX DISEASE WITHOUT ESOPHAGITIS Qualifiers: Esophagitis presence: without esophagitis Qualified Code(s): K21.9 - Gastro -esophageal reflux disease without esophagitis (4) Hypothyroid Assessment/Plan: -Levothyroxine Code(s): E03.9 - HYPOTHYROIDISM, UNSPECIFIED (5) Neurogenic bladder Assessment/Plan: -suprapubic catheter -UC yeast like organism -Urology consult for leaking suprapubic catheter -Renal US reviewed Code(s): N31.9 - NEUROMUSCULAR DYSFUNCTION OF BLADDER, UNSPECIFIED (6) UTI (urinary tract infection) due to urinary indwelling catheter Assessment/Plan: -UC yeast like organism, repeat shows same organism -ID on board Code(s): T83.51XA - ; N39.0 - URINARY TRACT INFECTION, SITE NOT SPECIFIED (7) Seizure Assessment/Plan: -Neurology on board -Head CT scan results reviewed -Levetiracetim 1000mg IVPB q12h -seizure precaution Code(s): R56.9 - UNSPECIFIED CONVULSIONS Assessment/Plan see problem list dvt ppx palliative consult--pending discharge to [place]
[2018-11-03] MEDS: DEXTROSE 5%-NORMAL SALINE 1,000 ML IV SCH ×2 (16:28→17:21)
--- NOTE | 2018-11-03 20:01 | PN ---
Progress Note (short form) - Note Progress Note: NEUROLOGY PROGRESS; Events reviewed, Pt. examined. No further seizures on levetiracetam 1 gm q12 hrs and with Rx of sepsis/ infection. Pt is awake. Staring, No speech. Follows no commands. Right field cut to threat. 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 SUGGEST: Continue keppra via G-tube 1000mg elixor q 12 hrs upon transfer to [facility]. Thank you very much, Moi Alarcon MD
[2018-11-03] MEDS: SENNOSIDES 8.6MG TABLET (FP) PO SCH (22:10)
[2018-11-03] MEDS: DOCUSATE SODIUM 100 MG CAPSULE (FP) PO SCH (22:10)
[2018-11-04] MEDS: LEVOTHYROXINE NA 100 MCG TABLET (FP) PO SCH (06:48)
[2018-11-04] MEDS: LACTOBACILLUS ACIDOPHILUS 1 TABLET PO SCH (09:01)
[2018-11-04] MEDS: ENOXAPARIN NA (PORCINE) 40 MG/0.4 ML DISP.SYRIN SQ SCH (09:01)
[2018-11-04] MEDS: BISACODYL 10 MG SUPP.RECT RC SCH (09:01)
[2018-11-04] MEDS: levETIRAcetam 500 MG/5 ML INJECTION VIAL IVPB SCH ×2 (09:01→22:06)
[2018-11-04] MEDS: FERROUS SO4 325 MG TABLET (FP) PO SCH (09:02)
[2018-11-04] MEDS: CALCIUM 500MG/VIT-D 200 UNITS COMBO TABLET (FP) PO SCH (09:02)
[2018-11-04] MEDS: POLYETHYLENE GLYCOL 3350 119 GM BTL PO SCH (09:02)
[2018-11-04] MEDS: COLLAGENASE CLOSTRIDIUM HIST. 30 GRAMS TUBE TP SCH (09:02)
[2018-11-04] MEDS: ZINC SULFATE 220 MG CAPSULE (FP) PO SCH (09:02)
[2018-11-04] MEDS: ASCORBIC ACID 500 MG TABLET (FP) PO SCH (09:03)
[2018-11-04] MEDS: CHOLECALCIFEROL (VIT D3) 1,000 UNIT (25 MCG) TABLET PO SCH (09:03)
[2018-11-04] MEDS: TAMOXIFEN CITRATE 10 MG TABLET PO SCH (09:03)
[2018-11-04] MEDS: MULTIVITAMINS (DAILY MVI) TABLET (FP) PO SCH (09:03)
--- NOTE | 2018-11-04 09:37 | PN ---
Progress Note, Physician Chief Complaint: Sepsis Suprapubic Catheter UTI MS History of Present Illness: NAD Awaiting bed at [place] - Current Medication List Current Medications: Active Medications Acetaminophen (Tylenol -) 650 mg PO Q4H PRN PRN Reason: FEVER Last Admin: 10/29/18 22:28 Dose: 650 mg Albuterol/Ipratropium (Duoneb -) 1 amp NEB Q4H PRN PRN Reason: SHORTNESS OF BREATH Last Admin: 11/01/18 08:10 Dose: 1 amp Ascorbic Acid (Vitamin C -) 500 mg PO DAILY [facility] Last Admin: 11/04/18 09:03 Dose: Not Given Bisacodyl (Dulcolax Suppository -) 10 mg RC DAILY [facility] Last Admin: 11/04/18 09:01 Dose: 10 mg Calcium Carbonate/Cholecalciferol (Os-Mikie 500+D -) 1 tab PO DAILY [facility] Last Admin: 11/04/18 09:02 Dose: Not Given Cholecalciferol (Vitamin D3 -) 1,000 unit PO DAILY [facility] Last Admin: 11/04/18 09:03 Dose: Not Given Collagenase (Santyl -) 1 applic TP DAILY [facility]; Protocol Last Admin: 11/04/18 09:02 Dose: 1 applic Docusate Sodium (Colace -) 100 mg PO HS [facility] Last Admin: 11/03/18 22:10 Dose: Not Given Enoxaparin Sodium (Lovenox -) 40 mg SQ DAILY [facility] Last Admin: 11/04/18 09:01 Dose: 40 mg Ferrous Sulfate (Feosol -) 325 mg PO DAILY [facility] Last Admin: 11/04/18 09:02 Dose: Not Given Dextrose/Sodium Chloride (D5-Ns -) 1,000 mls @ 42 mls/hr IV ASDIR [facility] Last Admin: 11/03/18 17:21 Dose: Not Given Lactobacillus Acidophilus (Bacid -) 1 tab PO DAILY [facility] Last Admin: 11/04/18 09:01 Dose: Not Given Levetiracetam (Keppra Injection -) 1,000 mg IVPB BID [facility] Last Admin: 11/04/18 09:01 Dose: 1,000 mg Levothyroxine Sodium (Synthroid -) 100 mcg PO 0700 [facility] Last Admin: 11/04/18 06:48 Dose: Not Given Multivitamins/Minerals/Vitamin C (Tab-A-Vit -) 1 tab PO DAILY [facility] Last Admin: 11/04/18 09:03 Dose: Not Given Non-Formulary Medication (Interferon Beta-1a [Avonex]) 30 mcg IM Tu [facility] Last Admin: 10/31/18 23:42 Dose: 30 mcg Pantoprazole Sodium (Protonix Iv) 40 mg IVPUSH DAILY [facility] Last Admin: 11/03/18 10:40 Dose: 40 mg Polyethylene Glycol (Miralax (For Daily Use) -) 17 gm PO BID [facility] Last Admin: 11/04/18 09:02 Dose: Not Given Senna (Senna -) 2 tab PO HS [facility] Last Admin: 11/03/18 22:10 Dose: Not Given Sodium Phosphate (Fleet Adult Rectal Enema -) 133 ml RC PRN PRN PRN Reason: CONSTIPATION Tamoxifen Citrate (Tamoxifen Citrate) 20 mg PO DAILY [facility] Last Admin: 11/04/18 09:03 Dose: Not Given Zinc Sulfate (Orazinc -) 220 mg PO BID [facility] Last Admin: 11/04/18 09:02 Dose: Not Given - Objective Vital Signs: Vital Signs Temperature 97.8 F 11/04/18 06:00 Pulse Rate 66 11/04/18 06:00 Respiratory Rate 18 11/04/18 06:00 Blood Pressure 128/72 11/04/18 06:00 O2 Sat by Pulse Oximetry (%) 99 11/03/18 21:00 Constitutional: Yes: No Distress, Calm, Cachectic Cardiovascular: Yes: Regular Rate and Rhythm Respiratory: Yes: Regular Gastrointestinal: Yes: WNL Genitourinary: Yes: Chopra Present Musculoskeletal: Yes: Other (generalized atrophy) Edema: No Peripheral Pulses WNL: Yes Neurological: Yes: Pre-Existing Deficit Labs: CBC, BMP 11/01/18 06:55 11/01/18 06:55 INR, PTT INR 1.08 (0.83-1.09) 10/22/18 07:00 Assessment/Plan (1) Sepsis Assessment/Plan: -UC yeast like organism -BC neg -CXR shows left base aerated with persistent residual infiltrate or atelectasis -ID on board -periodic temp spikes, currently afebrile -tylenol IVPB for temp >100F -repeat UC shows yeast like organism Code(s): A41.9 - SEPSIS, UNSPECIFIED ORGANISM (2) 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 Assessment/Plan: -fall precaution -aspiration precaution -NPO -INFECTIOUS DISEASES PHYSICIAN on board Code(s): G35 - MULTIPLE SCLEROSIS; R53.2 - FUNCTIONAL QUADRIPLEGIA (3) GERD (gastroesophageal reflux disease) Assessment/Plan: -Pantoprazole Code(s): K21.9 - GASTRO-ESOPHAGEAL REFLUX DISEASE WITHOUT ESOPHAGITIS Qualifiers: Esophagitis presence: without esophagitis Qualified Code(s): K21.9 - Gastro -esophageal reflux disease without esophagitis (4) Hypothyroid Assessment/Plan: -Levothyroxine Code(s): E03.9 - HYPOTHYROIDISM, UNSPECIFIED (5) Neurogenic bladder Assessment/Plan: -suprapubic catheter -UC yeast like organism -Urology consult for leaking suprapubic catheter -Renal US reviewed Code(s): N31.9 - NEUROMUSCULAR DYSFUNCTION OF BLADDER, UNSPECIFIED (6) UTI (urinary tract infection) due to urinary indwelling catheter Assessment/Plan: -UC yeast like organism, repeat shows same organism -ID on board Code(s): T83.51XA - ; N39.0 - URINARY TRACT INFECTION, SITE NOT SPECIFIED (7) Seizure Assessment/Plan: -Neurology on board -Head CT scan results reviewed -Levetiracetim 1000 mg IVPB q12h -seizure precaution Code(s): R56.9 - UNSPECIFIED CONVULSIONS
[2018-11-04] MEDS: PANTOPRAZOLE SODIUM 40 MG VIAL IVPUSH SCH (09:39)
[2018-11-04] MEDS ORDERED: ACETAMINOPHEN 650 MG SUPP.RECT PR PRN (13:57)
[2018-11-04] MEDS ORDERED: PT OWN MED DRAWER 7, Y5N ONE (15:22)
[2018-11-04] MEDS: LEVOTHYROXINE SODIUM 100 MCG VIAL IVPUSH SCH (15:57)
[2018-11-04] MEDS: DEXTROSE 5%-NORMAL SALINE 1,000 ML IV SCH ×2 (15:57→16:59)
[2018-11-04] MEDS ORDERED: levETIRAcetam 500 MG/5 ML INJECTION VIAL IVPB ONE (16:30)
--- NOTE | 2018-11-04 18:42 | PN ---
Progress Note, Physician History of Present Illness: Pt seen and examined, events noted, labs/imaging results reviewed. She is nonverbal, without distress at this time. Remains afebrile. Now off of antibiotics. - Current Medication List Current Medications: Active Medications Acetaminophen (Tylenol Suppository -) 650 mg [place] Q4H PRN PRN Reason: FEVER Albuterol/Ipratropium (Duoneb -) 1 amp NEB Q4H PRN PRN Reason: SHORTNESS OF BREATH Last Admin: 11/01/18 08:10 Dose: 1 amp Bisacodyl (Dulcolax Suppository -) 10 mg RC DAILY [facility] Last Admin: 11/04/18 09:01 Dose: 10 mg Collagenase (Santyl -) 1 applic TP DAILY [facility]; Protocol Last Admin: 11/04/18 09:02 Dose: 1 applic Enoxaparin Sodium (Lovenox -) 40 mg SQ DAILY [facility] Last Admin: 11/04/18 09:01 Dose: 40 mg Dextrose/Sodium Chloride (D5-Ns -) 1,000 mls @ 42 mls/hr IV ASDIR [facility] Last Admin: 11/04/18 16:59 Dose: 42 mls/hr Levetiracetam (Keppra Injection -) 1,500 mg IVPB BID [facility] Levothyroxine Sodium (Synthroid Injection -) 75 mcg IVPUSH 0700 [facility] Last Admin: 11/04/18 15:57 Dose: 75 mcg Non-Formulary Medication (Interferon Beta-1a [Avonex]) 30 mcg IM Tu [facility] Last Admin: 10/31/18 23:42 Dose: 30 mcg Pantoprazole Sodium (Protonix Iv) 40 mg IVPUSH DAILY [facility] Last Admin: 11/04/18 09:39 Dose: 40 mg Sodium Phosphate (Fleet Adult Rectal Enema -) 133 ml RC PRN PRN PRN Reason: CONSTIPATION Tamoxifen Citrate (Tamoxifen Citrate) 20 mg PO DAILY [facility] Last Admin: 11/04/18 09:03 Dose: Not Given - Objective Vital Signs: Vital Signs Temperature 98.9 F 11/04/18 18:07 Pulse Rate 110 H 11/04/18 18:07 Respiratory Rate 20 11/04/18 18:07 Blood Pressure 132/72 11/04/18 18:07 O2 Sat by Pulse Oximetry (%) 97 11/04/18 09:00 Constitutional: Yes: No Distress Cardiovascular: Yes: Regular Rate and Rhythm Respiratory: Yes: Regular Gastrointestinal: Yes: Normal Bowel Sounds, Soft Genitourinary: Yes: Other (SPC) Labs: CBC, BMP 11/01/18 06:55 11/01/18 06:55 INR, PTT INR 1.08 (0.83-1.09) 10/22/18 07:00 Microbiology 10/30/18 00:20 Blood - Picc Line Blood Culture - Final NO GROWTH AFTER 5 DAYS INCUBATION 10/30/18 00:35 Blood - Picc Line Blood Culture - Final NO GROWTH AFTER 5 DAYS INCUBATION 10/27/18 18:45 Blood - Peripheral Venous Blood Culture - Final NO GROWTH AFTER 5 DAYS INCUBATION 10/27/18 18:20 Blood - Peripheral Venous Blood Culture - Final NO GROWTH AFTER 5 DAYS INCUBATION 10/30/18 00:40 Urine - Urine Chopra Urine Culture - Final Yeast Like Organism 10/27/18 19:27 Urine - Urine Suprapubic Urine Culture - Final Yeast Like Organism 10/21/18 10:00 Blood - Peripheral Venous Blood Culture - Final NO GROWTH AFTER 5 DAYS INCUBATION 10/21/18 10:00 Blood - Peripheral Venous Blood Culture - Final NO GROWTH AFTER 5 DAYS INCUBATION 10/21/18 10:45 Urine - Urine Clean Catch Urine Culture - Final Yeast Like Organism Problem List - Problems (1) Sepsis Code(s): A41.9 - SEPSIS, UNSPECIFIED ORGANISM (2) UTI (urinary tract infection) due to urinary indwelling catheter Code(s): T83.51XA - ; N39.0 - URINARY TRACT INFECTION, SITE NOT SPECIFIED (3) TANISHA (acute kidney injury) Code(s): N17.9 - ACUTE KIDNEY FAILURE, UNSPECIFIED (4) Breast CA Code(s): C50.919 - MALIGNANT NEOPLASM OF UNSP SITE OF UNSPECIFIED FEMALE BREAST (5) 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 Code(s): G35 - MULTIPLE SCLEROSIS; R53.2 - FUNCTIONAL QUADRIPLEGIA (6) GERD (gastroesophageal reflux disease) Code(s): K21.9 - GASTRO-ESOPHAGEAL REFLUX DISEASE WITHOUT ESOPHAGITIS Qualifiers: Esophagitis presence: without esophagitis Qualified Code(s): K21.9 - Gastro -esophageal reflux disease without esophagitis (7) Hydronephrosis Code(s): N13.30 - UNSPECIFIED HYDRONEPHROSIS Qualifiers: Hydronephrosis type: with renal and ureteral calculous obstruction Qualified Code(s): N13.2 - Hydronephrosis with renal and ureteral calculous obstruction (8) Hypothyroid Code(s): E03.9 - HYPOTHYROIDISM, UNSPECIFIED (9) Nephrolithiasis Code(s): N20.0 - CALCULUS OF KIDNEY (10) Neurogenic bladder Code(s): N31.9 - NEUROMUSCULAR DYSFUNCTION OF BLADDER, UNSPECIFIED Assessment/Plan Complicated UTI Sepsis Leukocytosis Neurogenic bladder s/p SPC MS Dementia -- Pt now afebrile, without leukocytosis -- Culture results noted -- s/p course of antibiotics, monitor at this time -- Neurology following for seizure d.o.
[2018-11-05] MEDS: LEVOTHYROXINE SODIUM 100 MCG VIAL IVPUSH SCH (07:06)
--- NOTE | 2018-11-05 09:03 | PN ---
Progress Note, Physician Chief Complaint: Sepsis Suprapubic Catheter UTI MS History of Present Illness: NAD More twitching noticed by RN yesterday Keppra increased to 1500 mg BID Awaiting bed at [place] - Current Medication List Current Medications: Active Medications Acetaminophen (Tylenol Suppository -) 650 mg [place] Q4H PRN PRN Reason: FEVER Albuterol/Ipratropium (Duoneb -) 1 amp NEB Q4H PRN PRN Reason: SHORTNESS OF BREATH Last Admin: 11/01/18 08:10 Dose: 1 amp Bisacodyl (Dulcolax Suppository -) 10 mg RC DAILY [facility] Last Admin: 11/04/18 09:01 Dose: 10 mg Collagenase (Santyl -) 1 applic TP DAILY [facility]; Protocol Last Admin: 11/04/18 09:02 Dose: 1 applic Enoxaparin Sodium (Lovenox -) 40 mg SQ DAILY [facility] Last Admin: 11/04/18 09:01 Dose: 40 mg Dextrose/Sodium Chloride (D5-Ns -) 1,000 mls @ 42 mls/hr IV ASDIR [facility] Last Admin: 11/04/18 16:59 Dose: 42 mls/hr Levetiracetam (Keppra Injection -) 1,500 mg IVPB BID [facility] Last Admin: 11/04/18 22:06 Dose: 1,500 mg Levothyroxine Sodium (Synthroid Injection -) 75 mcg IVPUSH 0700 [facility] Last Admin: 11/05/18 07:06 Dose: 75 mcg Non-Formulary Medication (Interferon Beta-1a [Avonex]) 30 mcg IM Tu [facility] Last Admin: 10/31/18 23:42 Dose: 30 mcg Pantoprazole Sodium (Protonix Iv) 40 mg IVPUSH DAILY [facility] Last Admin: 11/04/18 09:39 Dose: 40 mg Sodium Phosphate (Fleet Adult Rectal Enema -) 133 ml RC PRN PRN PRN Reason: CONSTIPATION Tamoxifen Citrate (Tamoxifen Citrate) 20 mg PO DAILY [facility] Last Admin: 11/04/18 09:03 Dose: Not Given - Objective Vital Signs: Vital Signs Temperature 98.4 F 11/05/18 06:00 Pulse Rate 109 H 11/05/18 06:00 Respiratory Rate 18 11/05/18 06:00 Blood Pressure 140/68 11/05/18 06:00 O2 Sat by Pulse Oximetry (%) 96 11/04/18 21:00 Constitutional: Yes: No Distress, Calm, Cachectic Cardiovascular: Yes: Regular Rate and Rhythm Respiratory: Yes: Regular Gastrointestinal: Yes: WNL Genitourinary: Yes: Chopra Present Musculoskeletal: Yes: Muscle Weakness, Other (generalized atrophy) Edema: No Peripheral Pulses WNL: Yes Neurological: Yes: Pre-Existing Deficit Labs: CBC, BMP 11/01/18 06:55 11/01/18 06:55 INR, PTT INR 1.08 (0.83-1.09) 10/22/18 07:00 Assessment/Plan (1) Sepsis Assessment/Plan: -UC yeast like organism -BC neg -CXR shows left base aerated with persistent residual infiltrate or atelectasis -ID on board -periodic temp spikes, currently afebrile -tylenol IVPB for temp >100F -repeat UC shows yeast like organism Code(s): A41.9 - SEPSIS, UNSPECIFIED ORGANISM (2) 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 Assessment/Plan: -fall precaution -aspiration precaution -NPO-Family has not made any decision for advance directives yet, they have verbally expressed about not wanting feeding tube or aggressive measures -[employer] on board Code(s): G35 - MULTIPLE SCLEROSIS; R53.2 - FUNCTIONAL QUADRIPLEGIA (3) GERD (gastroesophageal reflux disease) Assessment/Plan: -Pantoprazole Code(s): K21.9 - GASTRO-ESOPHAGEAL REFLUX DISEASE WITHOUT ESOPHAGITIS Qualifiers: Esophagitis presence: without esophagitis Qualified Code(s): K21.9 - Gastro -esophageal reflux disease without esophagitis (4) Hypothyroid Assessment/Plan: -Levothyroxine Code(s): E03.9 - HYPOTHYROIDISM, UNSPECIFIED (5) Neurogenic bladder Assessment/Plan: -suprapubic catheter -UC yeast like organism -Urology consult for leaking suprapubic catheter -Renal US reviewed Code(s): N31.9 - NEUROMUSCULAR DYSFUNCTION OF BLADDER, UNSPECIFIED (6) UTI (urinary tract infection) due to urinary indwelling catheter Assessment/Plan: -UC yeast like organism, repeat shows same organism -ID on board Code(s): T83.51XA - ; N39.0 - URINARY TRACT INFECTION, SITE NOT SPECIFIED (7) Seizure Assessment/Plan: -Neurology on board -Head CT scan results reviewed -Levetiracetim 1500 mg IVPB q12h -seizure precaution Code(s): R56.9 - UNSPECIFIED CONVULSIONS
[2018-11-05] MEDS ORDERED: PT OWN MED DRAWER 7, Y5N ONE ×2 (09:44→10:21)
[2018-11-05] MEDS: PANTOPRAZOLE SODIUM 40 MG VIAL IVPUSH SCH (09:53)
[2018-11-05] MEDS: levETIRAcetam 500 MG/5 ML INJECTION VIAL IVPB SCH ×2 (09:53→23:20)
[2018-11-05] MEDS: ENOXAPARIN NA (PORCINE) 40 MG/0.4 ML DISP.SYRIN SQ SCH (09:56)
[2018-11-05] MEDS: BISACODYL 10 MG SUPP.RECT RC SCH (09:56)
[2018-11-05] MEDS: TAMOXIFEN CITRATE 10 MG TABLET PO SCH (09:56)
[2018-11-05] MEDS: COLLAGENASE CLOSTRIDIUM HIST. 30 GRAMS TUBE TP SCH (09:57)
[2018-11-05 15:57] LABS: ARTERIAL BLD GAS O2 SATURATION 97.1 % (95-98); ARTERIAL BLOOD GAS BASE EXCESS 1.3 meq/l (-2-2); ARTERIAL BLOOD GAS PCO2 49.8 mmHg (35-45); ARTERIAL BLOOD GAS PO2 103 mmHg (80-105); ARTERIAL BLOOD GAS pH 7.35 (7.35-7.45)
[2018-11-05 15:58] LABS: ALLENS TEST POSITIVE
--- NOTE | 2018-11-05 16:10 | PN ---
Progress Note, Physician History of Present Illness: Pt nonverbal, with some labored breathing, desaturated earlier today. CXR results pending. Remains afebrile, no current seizure activity noted. - Current Medication List Current Medications: Active Medications Acetaminophen (Tylenol Suppository -) 650 mg [place] Q4H PRN PRN Reason: FEVER Albuterol/Ipratropium (Duoneb -) 1 amp NEB Q4H PRN PRN Reason: SHORTNESS OF BREATH Last Admin: 11/01/18 08:10 Dose: 1 amp Bisacodyl (Dulcolax Suppository -) 10 mg RC DAILY [facility] Last Admin: 11/05/18 09:56 Dose: Not Given Collagenase (Santyl -) 1 applic TP DAILY [facility]; Protocol Last Admin: 11/05/18 09:57 Dose: 1 applic Enoxaparin Sodium (Lovenox -) 40 mg SQ DAILY [facility] Last Admin: 11/05/18 09:56 Dose: 40 mg Dextrose/Sodium Chloride (D5-Ns -) 1,000 mls @ 42 mls/hr IV ASDIR [facility] Last Admin: 11/04/18 16:59 Dose: 42 mls/hr Levetiracetam (Keppra Injection -) 1,500 mg IVPB BID [facility] Last Admin: 11/05/18 09:53 Dose: 1,500 mg Levothyroxine Sodium (Synthroid Injection -) 75 mcg IVPUSH 0700 [facility] Last Admin: 11/05/18 07:06 Dose: 75 mcg Non-Formulary Medication (Interferon Beta-1a [Avonex]) 30 mcg IM Tu [facility] Last Admin: 10/31/18 23:42 Dose: 30 mcg Pantoprazole Sodium (Protonix Iv) 40 mg IVPUSH DAILY [facility] Last Admin: 11/05/18 09:53 Dose: 40 mg Sodium Phosphate (Fleet Adult Rectal Enema -) 133 ml RC PRN PRN PRN Reason: CONSTIPATION Tamoxifen Citrate (Tamoxifen Citrate) 20 mg PO DAILY [facility] Last Admin: 11/05/18 09:56 Dose: Not Given - Objective Vital Signs: Vital Signs Temperature 98.2 F 11/05/18 14:15 Pulse Rate 120 H 11/05/18 14:15 Respiratory Rate 18 11/05/18 14:15 Blood Pressure 161/78 11/05/18 14:15 O2 Sat by Pulse Oximetry (%) 96 11/05/18 09:00 Constitutional: Yes: Mild Distress Cardiovascular: Yes: Tachycardia Respiratory: Yes: Other (coarse BS b/l) Gastrointestinal: Yes: Normal Bowel Sounds, Soft Labs: CBC, BMP 11/01/18 06:55 11/01/18 06:55 INR, PTT INR 1.08 (0.83-1.09) 10/22/18 07:00 CBC, BMP 11/01/18 06:55 11/01/18 06:55 Microbiology 10/30/18 00:20 Blood - Picc Line Blood Culture - Final NO GROWTH AFTER 5 DAYS INCUBATION 10/30/18 00:35 Blood - Picc Line Blood Culture - Final NO GROWTH AFTER 5 DAYS INCUBATION 10/27/18 18:45 Blood - Peripheral Venous Blood Culture - Final NO GROWTH AFTER 5 DAYS INCUBATION 10/27/18 18:20 Blood - Peripheral Venous Blood Culture - Final NO GROWTH AFTER 5 DAYS INCUBATION 10/30/18 00:40 Urine - Urine Chopra Urine Culture - Final Yeast Like Organism 10/27/18 19:27 Urine - Urine Suprapubic Urine Culture - Final Yeast Like Organism 10/21/18 10:00 Blood - Peripheral Venous Blood Culture - Final NO GROWTH AFTER 5 DAYS INCUBATION 10/21/18 10:00 Blood - Peripheral Venous Blood Culture - Final NO GROWTH AFTER 5 DAYS INCUBATION 10/21/18 10:45 Urine - Urine Clean Catch Urine Culture - Final Yeast Like Organism - ....Imaging Chest X-ray: Pending Problem List - Problems (1) Sepsis Code(s): A41.9 - SEPSIS, UNSPECIFIED ORGANISM (2) UTI (urinary tract infection) due to urinary indwelling catheter Code(s): T83.51XA - ; N39.0 - URINARY TRACT INFECTION, SITE NOT SPECIFIED (3) TANISHA (acute kidney injury) Code(s): N17.9 - ACUTE KIDNEY FAILURE, UNSPECIFIED (4) Breast CA Code(s): C50.919 - MALIGNANT NEOPLASM OF UNSP SITE OF UNSPECIFIED FEMALE BREAST (5) 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 Code(s): G35 - MULTIPLE SCLEROSIS; R53.2 - FUNCTIONAL QUADRIPLEGIA (6) GERD (gastroesophageal reflux disease) Code(s): K21.9 - GASTRO-ESOPHAGEAL REFLUX DISEASE WITHOUT ESOPHAGITIS Qualifiers: Esophagitis presence: without esophagitis Qualified Code(s): K21.9 - Gastro -esophageal reflux disease without esophagitis (7) Hydronephrosis Code(s): N13.30 - UNSPECIFIED HYDRONEPHROSIS Qualifiers: Hydronephrosis type: with renal and ureteral calculous obstruction Qualified Code(s): N13.2 - Hydronephrosis with renal and ureteral calculous obstruction (8) Hypothyroid Code(s): E03.9 - HYPOTHYROIDISM, UNSPECIFIED (9) Nephrolithiasis Code(s): N20.0 - CALCULUS OF KIDNEY (10) Neurogenic bladder Code(s): N31.9 - NEUROMUSCULAR DYSFUNCTION OF BLADDER, UNSPECIFIED Assessment/Plan Complicated UTI Sepsis Leukocytosis Neurogenic bladder s/p SPC MS Dementia New onset seizures -- Pt with hypoxia earlier, now on NRB -- f/u CXR -- off antibiotics, afebrile, continue monitor closely -- Aspiration precautions
[2018-11-05] MEDS: DEXTROSE 5%-NORMAL SALINE 1,000 ML IV SCH (23:20)
[2018-11-06] MEDS ORDERED: PT OWN MED DRAWER 7, Y5N ONE (05:48)
[2018-11-06] MEDS: LEVOTHYROXINE SODIUM 100 MCG VIAL IVPUSH SCH (06:35)
[2018-11-06] MEDS ORDERED: ACETAMINOPHEN 1000 MG/100 ML VIAL (NON FORMULARY) IVPB PRN (10:22)
--- NOTE | 2018-11-06 10:22 | RAPID ---
Physical Examination Vital Signs: Vital Signs Temperature 98.0 F 11/05/18 22:00 Pulse Rate 105 H 11/05/18 22:00 Respiratory Rate 18 11/05/18 22:00 Blood Pressure 112/78 11/05/18 22:00 O2 Sat by Pulse Oximetry (%) 99 11/05/18 21:00 Labs: CBC, BMP 11/01/18 06:55 11/01/18 06:55 Rapid Response - Rapid Response Assessment: Rapid response called to floor. Per nurse, pt was admitted for UTI and MS exacerbation found to have increased work of breathing and sinus tachycardia in the 130s. At baseline, pt is nonverbal. Of note, nurse explained pt's family is currently on the way to discuss code status at this time. VS 97/56 HR 134 99% NR On physical exam, pt found to be on nonrebreather. Awake. +accessory muscle use noted. Heart, sinus tach, zack murmurs noted. Non-verbal. Lungs cta b/l. A/P: CXR EKG showed sinus tach CBC, CMP, lactate IV Tylenol given 1L bolus of NS Sammi Holden present, tx discussed
[2018-11-06] MEDS ORDERED: SODIUM CHLORIDE 1,000 ML IV STA (10:25)
[2018-11-06] MEDS: levETIRAcetam 500 MG/5 ML INJECTION VIAL IVPB SCH ×2 (10:34→23:15)
[2018-11-06] MEDS: PANTOPRAZOLE SODIUM 40 MG VIAL IVPUSH SCH (10:42)
[2018-11-06] MEDS: ENOXAPARIN NA (PORCINE) 40 MG/0.4 ML DISP.SYRIN SQ SCH (10:46)
[2018-11-06] MEDS: TAMOXIFEN CITRATE 10 MG TABLET PO SCH (10:47)
[2018-11-06] MEDS: BISACODYL 10 MG SUPP.RECT RC SCH (10:56)
[2018-11-06] MEDS: COLLAGENASE CLOSTRIDIUM HIST. 30 GRAMS TUBE TP SCH (10:57)
--- NOTE | 2018-11-06 11:11 | PN ---
Progress Note, Physician Chief Complaint: Sepsis Suprapubic Catheter UTI MS History of Present Illness: Previous notes and events reviewed patient noted to have shallow respirations, tachypneic on NRB mask, tachycardic with HR 130s, patient is pending bed to [place] for palliative care however at present NO DNR/DNI form is signed, notified Ramon and daughter of patient condition and [facility] called due change in status, patient family on way to hospital , when arrive spoke with Ramon, daughter, and Palliative RN Lala and patient now made DNR/DNI Patient is not stable for transfer to [facility], patient will be in- house hospice - Current Medication List Current Medications: Active Medications Acetaminophen (Tylenol Suppository -) 650 mg [place] Q4H PRN PRN Reason: FEVER Acetaminophen (Ofirmev Injection -) 1,000 mg IVPB Q6H PRN PRN Reason: FEVER Albuterol/Ipratropium (Duoneb -) 1 amp NEB Q4H PRN PRN Reason: SHORTNESS OF BREATH Last Admin: 11/01/18 08:10 Dose: 1 amp Bisacodyl (Dulcolax Suppository -) 10 mg RC DAILY [facility] Last Admin: 11/05/18 09:56 Dose: Not Given Collagenase (Santyl -) 1 applic TP DAILY [facility]; Protocol Last Admin: 11/05/18 09:57 Dose: 1 applic Enoxaparin Sodium (Lovenox -) 40 mg SQ DAILY [facility] Last Admin: 11/05/18 09:56 Dose: 40 mg Dextrose/Sodium Chloride (D5-Ns -) 1,000 mls @ 42 mls/hr IV ASDIR [facility] Last Admin: 11/05/18 23:20 Dose: 42 mls/hr Sodium Chloride (Normal Saline -) 1,000 mls @ 1,000 mls/hr IV ASDIR [facility] Stop: 11/06/18 11:24 Levetiracetam (Keppra Injection -) 1,500 mg IVPB BID [facility] Last Admin: 11/05/18 23:20 Dose: 1,500 mg Levothyroxine Sodium (Synthroid Injection -) 75 mcg IVPUSH 0700 [facility] Last Admin: 11/06/18 06:35 Dose: 75 mcg Non-Formulary Medication (Interferon Beta-1a [Avonex]) 30 mcg IM Tu [facility] Last Admin: 10/31/18 23:42 Dose: 30 mcg Pantoprazole Sodium (Protonix Iv) 40 mg IVPUSH DAILY [facility] Last Admin: 11/05/18 09:53 Dose: 40 mg Sodium Phosphate (Fleet Adult Rectal Enema -) 133 ml RC PRN PRN PRN Reason: CONSTIPATION Tamoxifen Citrate (Tamoxifen Citrate) 20 mg PO DAILY [facility] Last Admin: 11/05/18 09:56 Dose: Not Given - Objective Vital Signs: Vital Signs Temperature 98.0 F 11/05/18 22:00 Pulse Rate 105 H 11/05/18 22:00 Respiratory Rate 18 11/05/18 22:00 Blood Pressure 112/78 11/05/18 22:00 O2 Sat by Pulse Oximetry (%) 99 11/05/18 21:00 Constitutional: Yes: Moderate Distress Eyes: Yes: Conjunctiva Clear HENT: Yes: Atraumatic Cardiovascular: Yes: Tachycardia Respiratory: Yes: Accessory Muscle Use, Diminished, Tachypnea, Other (Non- Rebreather Mask) Gastrointestinal: Yes: Normal Bowel Sounds Genitourinary: Yes: Chopra Present Musculoskeletal: Yes: Muscle Weakness Extremities: Yes: WNL Edema: No Neurological: Yes: Pre-Existing Deficit Labs: CBC, BMP 11/01/18 06:55 11/01/18 06:55 INR, PTT INR 1.08 (0.83-1.09) 10/22/18 07:00 Problem List - Problems (1) Sepsis Assessment/Plan: -UC yeast like organism -BC neg -CXR shows left base aerated with persistent residual infiltrate or atelectasis -periodic temp spikes, currently afebrile -tylenol IVPB for temp >100F -repeat UC shows yeast like organism Code(s): A41.9 - SEPSIS, UNSPECIFIED ORGANISM (2) 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 Assessment/Plan: -fall precaution -Avonex -aspiration precaution -NPO-family does not want feeding tube placed -[employer]IST on board Code(s): G35 - MULTIPLE SCLEROSIS; R53.2 - FUNCTIONAL QUADRIPLEGIA (3) Neurogenic bladder Assessment/Plan: -suprapubic catheter -UC yeast like organism -Urology consult for leaking suprapubic catheter -Renal US reviewed Code(s): N31.9 - NEUROMUSCULAR DYSFUNCTION OF BLADDER, UNSPECIFIED (4) UTI (urinary tract infection) due to urinary indwelling catheter Assessment/Plan: -UC yeast like organism, repeat shows same organism Code(s): T83.51XA - ; N39.0 - URINARY TRACT INFECTION, SITE NOT SPECIFIED (5) Seizure Assessment/Plan: -Neurology on board -Head CT scan results reviewed -Levetiracetim 1500mg IVPB q12h -seizure precaution Code(s): R56.9 - UNSPECIFIED CONVULSIONS Assessment/Plan see problem list Palliative Care DNR/DNI Morphine drip
[2018-11-06 11:21] LABS: BASO % 0.2 % (0-2.0); HEMATOCRIT 33.2 % (32.4-45.2); HEMOGLOBIN 10.7 GM/dL (10.7-15.3); MCH 28.1 pg (25.7-33.7); MCHC 32.2 g/dl (32.0-36.0); MEAN CELL VOLUME 87.1 fl (80-96); MONO % 2.1 % (3.8-10.2); NEUT % 95.7 % (42.8-82.8); PLATELET COUNT 430 K/MM3 (134-434); RBC 3.81 M/mm3 (3.60-5.2); RDW 16.6 % (11.6-15.6); WHITE BLOOD COUNT 17.2 K/mm3 (4.0-10.0)
--- NOTE | 2018-11-06 11:34 | EKG ---
Test Reason : Blood Pressure : / mmHG Vent. Rate : 132 BPM Atrial Rate : 133 BPM P-R Int : 000 ms QRS Dur : 078 ms QT Int : 406 ms P-R-T Axes : 000 -23 027 degrees QTc Int : 601 ms SINUS TACHYCARDIA NONSPECIFIC ST ABNORMALITY ABNORMAL ECG WHEN COMPARED WITH ECG OF 21-OCT-2018 09:56, VENT. RATE HAS INCREASED Confirmed by HANS RED MD ([id number]) on 11/06/2018 11:33:45 AM Referred By: Confirmed By:HANS RED MD
[2018-11-06 11:37] LABS: ALBUMIN 2.1 g/dl (3.4-5.0); BILIRUBIN,TOTAL 0.2 mg/dL (0.2-1); BLOOD UREA NITROGEN 16.3 mg/dL (7-18); CALCIUM 8.4 mg/dL (8.5-10.1); CREATININE 0.8 mg/dL (0.55-1.3); TOT PROT 6.2 g/dl (6.4-8.2)
[2018-11-06 11:41] LABS: POTASSIUM 2.9 mmol/L (3.5-5.1)
[2018-11-06] MEDS ORDERED: MORPHINE 100 MG in SODIUM CHLORIDE 98 ML IVPB SCH (11:45)
[2018-11-06] MEDS ORDERED: MORPHINE SULFATE/0.9% NACL/PF 100 MG/100 ML BAG IVPB SCH (11:45)
[2018-11-06] MEDS: DEXTROSE 5%-NORMAL SALINE 1,000 ML IV SCH (13:46)
[2018-11-06 14:17] LABS: ANISOCYTOSIS 2+; MACROCYTOSIS 0; PLATELET ESTIMATE NORMAL
[2018-11-06 15:17] VITALS: BMI 17.4
[2018-11-06 19:25] VITALS: BP 85/55; PULSE 102; TEMP 96.8
[2018-11-06] MEDS ORDERED: SODIUM CHLORIDE 1,000 ML IV SCH (20:15)
--- NOTE | 2018-11-07 01:47 | HOSP ---
Subjective - Review of Symptoms Events since last encounter: Hospitalist Encounter Notified by the RN that the patient is unresponsive Patient is A DNR/DNI, Comfort Measures- on Morphine Drip Family at bedside Subjective: Arrived to bedside, patient is unresponsive to verbal/tactile stimulus, no spontaneous respirations, no apical or palpable pulses present. pupils fixed and dilated, no corneal reflex, no voluntary movement of extremities. skin- pale , cool to touch. mottling to extremities. Patient pronounced 01:15 This is a 68 y/o woman from [facility] with a PMHx of MS, Neurogenic Bladder, s/p Suprapubic Catheter, Recurrent Drug Resistant UTIs, Anemia. Admitted for Sepsis , Complicated UTI, MRSA in UA, Pneumonia. 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 Patient is a DNR/DNI, on Comfort Measures- Morphine Drip Plan RN to prepare body for the Mikhail Family at bedside, request patient to be ready for Home transportation logistics internship to inform ODN RN to inform PCP service regarding patient's expiration General: Yes: Other Neurological: Yes: Other (unresponsive) Physical Examination Vital Signs: Vital Signs Temperature 96.8 F L 11/06/18 16:30 Pulse Rate 102 H 11/06/18 16:30 Respiratory Rate 18 11/06/18 16:30 Blood Pressure 85/55 L 11/06/18 16:30 O2 Sat by Pulse Oximetry (%) 99 11/06/18 09:00 Constitutional: Yes: Pallor, Other (unresponsive) Eyes: Yes: Other (pupils fixed and dilated no corneal reflex) Cardiovascular: Yes: Other (no apical or palpable pulses) Respiratory: Yes: On Venti-Mask, Other (no spontaneous respirations) Peripheral Pulses WNL: No Neurological: Yes: Unresponsive Labs: CBC, BMP 11/06/18 10:34 11/06/18 10:34 Laboratory Results - last 24 hr 11/06/18 11/06/18 11/06/18 10:34 10:34 10:34 WBC 17.2 H RBC 3.81 Hgb 10.7 Hct 33.2 MCV 87.1 MCH 28.1 MCHC 32.2 RDW 16.6 H Plt Count 430 MPV 9.0 D Absolute Neuts (auto) 16.4 H Neutrophils % 95.7 H D Neutrophils % (Manual) 74.0 Band Neutrophils % 18.0 Lymphocytes % 2.0 L D Lymphocytes % (Manual) 2.0 L D Monocytes % 2.1 L Monocytes % (Manual) 4 D Eosinophils % 0.0 D Eosinophils % (Manual) 0.0 Basophils % 0.2 Basophils % (Manual) 0.0 Myelocytes % (Man) 0 Promyelocytes % (Man) 0 Blast Cells % (Manual) 0 Nucleated RBC % 0 Metamyelocytes 1 D Hypochromia 0 Platelet Estimate Normal Polychromasia 0 Poikilocytosis 1+ Basophilic Stippling 1+ Anisocytosis 2+ Microcytosis 1+ Macrocytosis 0 Spherocytes 1+ [place] Cells 1+ Sodium 148 H Potassium 2.9 L* Chloride 109 H Carbon Dioxide 32 Anion Gap 7 L BUN 16.3 Creatinine 0.8 Est GFR (CKD-EPI)AfAm 89.04 Est GFR (CKD-EPI)NonAf 76.83 Random Glucose 159 H Lactic Acid 1.7 Calcium 8.4 L Total Bilirubin 0.2 AST 14 L ALT 11 L Alkaline Phosphatase 85 Total Protein 6.2 L Albumin 2.1 L ABG Results ABG pH 7.35 (7.35-7.45) 11/05/18 15:50 ABG pCO2 at Pt Temp 49.8 mmHg (35-45) H 11/05/18 15:50 ABG pO2 at Pt Temp 103 mmHg (80-105) 11/05/18 15:50 ABG HCO3 27.0 mmol/L (22-27) 11/05/18 15:50 ABG O2 Sat (Measured) 97.1 % (95-98) 11/05/18 15:50 ABG O2 Content 16.8 % vol (15-22) 11/05/18 15:50 ABG Base Excess 1.3 meq/l (-2-2) 11/05/18 15:50 Current Medications Generic Name Dose Route Start Last Admin Trade Name Freq PRN Reason Stop Dose Admin Acetaminophen 1,000 mg 11/06/18 10:22 11/06/18 10:54 Ofirmev Injection - IVPB 1,000 mg Q6H PRN Administration FEVER Collagenase 1 applic 10/29/18 10:45 11/06/18 10:57 Santyl - TP Not Given DAILY [facility] Protocol Dextrose/Sodium Chloride 1,000 mls @ 42 mls/hr 10/31/18 11:00 11/06/18 13:46 D5-Ns - IV Not Given ASDIR [facility] Morphine Sulfate 100 mg in 100 mls @ 1 mls/hr 11/06/18 11:45 11/06/18 23:00 Morphine 100mg/100ml-0.9% Nacl IVPB 2 mg/hr TITR [facility] 2 mls/hr Titration Protocol 1 MG/HR Sodium Chloride 1,000 mls @ 42 mls/hr 11/06/18 20:15 Normal Saline - IV ASDIR [facility] Levetiracetam 1,500 mg 11/04/18 22:00 11/06/18 23:15 Keppra Injection - IVPB 1,500 mg BID [facility] Administration
== END 2018-11-07 01:15 | disposition expired | DRG 466 ==
LOC: JER 09:20 → JERBED 10:22 → J8W 13:25
PROVIDERS: ADMIT Family Medicine; ATTEND Family Medicine
DX: T83.511A Infection and inflammatory reaction due to indwelling urethral catheter, initial encounter (principal); A41.9 Sepsis, unspecified organism; J69.0 Pneumonitis due to inhalation of food and vomit; L89.152 Pressure ulcer of sacral region, stage 2; R53.2 Functional quadriplegia; L89.153 Pressure ulcer of sacral region, stage 3; G92 Toxic encephalopathy; R64 Cachexia; G35 Multiple sclerosis; R56.9 Unspecified convulsions; N31.9 Neuromuscular dysfunction of bladder, unspecified; N13.30 Unspecified hydronephrosis; R47.01 Aphasia; R13.10 Dysphagia, unspecified; F03.90 Unspecified dementia, unspecified severity, without behavioral disturbance, psychotic disturbance, mood disturbance, and anxiety; Z66 Do not resuscitate; B37.49 Other urogenital candidiasis; Y84.6 Urinary catheterization as the cause of abnormal reaction of the patient, or of later complication, without mention of misadventure at the time of the procedure; B95.62 Methicillin resistant Staphylococcus aureus infection as the cause of diseases classified elsewhere; Y92.89 Other specified places as the place of occurrence of the external cause; D64.9 Anemia, unspecified; Z85.3 Personal history of malignant neoplasm of breast; K59.00 Constipation, unspecified; E03.9 Hypothyroidism, unspecified; Z90.12 Acquired absence of left breast and nipple; K21.9 Gastro-esophageal reflux disease without esophagitis; Z68.1 Body mass index [BMI] 19.9 or less, adult; J98.11 Atelectasis; T83.038A Leakage of other urinary catheter, initial encounter
CPT/HCPCS: 36415; 36600; 70450-TC; 71045-TC-FY; 74018-TC-FY; 76775-TC; 76856-TC; 80048; 80053; 81003; 82150; 82803; 82962; 83605; 83690; 83735; 83880; 84100; 84436; 84443; 84484; 85025; 85027; 85610; 85730; 87040; 87077; 87086; 93005; 93010; 94640; 97161-GP; 99284-25; J0131; J7030